=== PATIENT | female | born 1960 | race Caucasian/White ===

== ENCOUNTER → 2020-03-01 17:24 | Outpatient (BNVA) | payer MEDICARE, SELFPAY | PROVIDERS: PCP Internal Medicine; Visit Provider Nurse Practitioner Family | DX: Z11.59 Encounter for screening for other viral diseases (principal); Z20.828 Contact with and (suspected) exposure to other viral communicable diseases; J06.9 Acute upper respiratory infection, unspecified | CPT/HCPCS: 87635 ==

== ENCOUNTER → 2020-03-23 08:19 | Outpatient (BNVA) | payer MEDICARE, SELFPAY | PROVIDERS: PCP Family Medicine Adult Medicine; Referring Provider Family Medicine Adult Medicine; Visit Provider Anesthesiology Pain Medicine | DX: M51.26 Other intervertebral disc displacement, lumbar region (principal); M54.9 Dorsalgia, unspecified; M54.12 Radiculopathy, cervical region; F17.210 Nicotine dependence, cigarettes, uncomplicated; Z98.890 Other specified postprocedural states; Z79.891 Long term (current) use of opiate analgesic | CPT/HCPCS: 99205 ==

== ENCOUNTER → 2020-04-20 08:43 | Outpatient (BNVA) | payer MEDICARE, SELFPAY | PROVIDERS: PCP Family Medicine Adult Medicine; Visit Provider Anesthesiology Pain Medicine | DX: M54.9 Dorsalgia, unspecified (principal); M54.12 Radiculopathy, cervical region; F17.210 Nicotine dependence, cigarettes, uncomplicated; Z79.899 Other long term (current) drug therapy | CPT/HCPCS: 99212 ==

== ENCOUNTER 2020-06-10 17:01 | Emergency (ER) | payer MEDICARE, MEDICAID, SELFPAY ==
--- NOTE | 2020-06-10 17:18 | ED_ITS ---
HPI - Abdominal Pain General: Chief Complaint: Abdominal Pain Stated Complaint: R SIDE PAIN/LIVER LESS THAN 20% EFF Time Seen by Provider: 06/10/20 17:18 Source: patient Mode of arrival: ambulatory Limitations: no limitations History of Present Illness: HPI narrative: 60-year-old female comes in today with complaints of right upper quadrant abdominal pain. Patient has a history of cirrhosis of the liver, hepatitis C, chronic pain, cervical radiculopathy, and hypertension. Patient had been discharged from her pain management physician for overuse of her medications 3 months ago. Patient reports for the last 2 days she has had an exacerbation of her pain she does not know if she is having problems with her pancreas or gallbladder attack. Patient denies any vomiting or diarrhea. Patient reports no fever. Patient appears well. Patient appears in moderate to severe pain. MD elicited complaint: abdominal pain Review of Systems General: Reports: 10 or more systems reviewed and unremarkable except in HPI and below GI: Reports: abdominal pain PFSH ED PFSH: Medical History Degenerative disk disease Depression Encounter for chronic pain management Herniation of left side of L4-L5 intervertebral disc History of 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 infection HTN (hypertension) Surgical History History of neck surgery Family History Mother Heart problem Brother Heart problem Social History Smoking and tobacco status: current some day smoker cigarettes Second hand smoke exposure: Yes Alcohol intake: never Physical Exam Const: COMMON NORMALS: no acute distress and patient oriented x3 GENERAL APPEARANCE: cooperative HENMT: COMMON NORMALS: normocephalic and Normal external nose present HEAD & SCALP: normal to inspection and normocephalic NOSE: Normal external nose present MOUTH: Normal oral and palatal mucosa present Eye: GENERAL EYE: appearance normal, both eyes and all related structures Neck/C-Spine: COMMON NORMALS: full ROM Chest: COMMONS NORMALS: normal inspection of the chest Resp: COMMON NORMALS: normal respiratory effort EFFORT & INSPECTION: Yes able to speak in complete sentences Cardio: COMMON NORMALS: regular rate and regular rhythm RATE: regular rate RHYTHM: regular rhythm GI: AUSCULTATION: Yes normoactive bowel sounds PALPATION: Yes Tenderness to palpation present (GI) OTHER: Distended abdomen, bowel sounds present, generalized tenderness. Back/Pelvis: COMMON NORMALS: thoracic and lumbar spine normal to inspection Extremity: COMMON NORMALS: normal to inspection Neuro: COMMON NORMALS: patient oriented x3 and moves all extremities Psych: COMMON NORMALS: mental status grossly normal and cooperative Skin: COMMON NORMALS: no rashes or lesions noted GENERAL SKIN EXAM: no rashes or lesions noted Course ED course: 1944, reviewed labs with patient. Notes significant abnormalities are noted. Bilirubin is normal, AST is and ALTs are fairly normal. Patient reports no improvement in pain after 4 mg of morphine and 4 mg of Zofran. Patient does have a long history of narcotic use. I suspect it might be difficulty getting her pain under control. This time I have limited information to rule out a surgical abdomen so I will go ahead and do a CT of the abdomen pelvis to further evaluate diarrhea and abdominal pain. I will also p.o. challenge the patient with 1 Percocet and some liquids. Vital Signs: Vital signs: Vital Signs Temperature 98.4 F 06/10/20 17:27 Pulse Rate 79 06/10/20 19:48 Respiratory Rate 22 H 06/10/20 19:51 Blood Pressure 168/118 06/10/20 19:48 Pulse Oximetry 99 06/10/20 19:51 MDM - Abdominal Pain MDM Narrative: Medical decision making narrative: Patient comes in today with complaints of right upper quadrant abdominal pain. Patient reports the pain started this evening has become uncontrollable. Patient appears well. Patient does appear in some moderate to severe pain. Abdomen was slightly distended with normal bowel sounds. Skin was warm and dry. Vital signs were normal except for elevated blood pressure. Differential diagnosis includes not limited to pancreatitis, biliary obstruction, exacerbation of chronic pain, malingering. Laboratory values were unremarkable without much significance. Patient co ntinued to have significant pain though evident after treatment with Zofran and 4 mg of morphine sulfate. CT scan was then performed to rule out surgical abdomen such as bowel obstruction, pancreatitis, or renal calculi. CT showed no acute process. Did show may be some hepatitis but no signs of infection or obstruction. Patient was challenged with 1 tablet of Percocet and water. Patient was able to hold the medication down and had improvement of pain. I think the patient reported increased stress which is caused her to have a exacerbation of her chronic pain and was seeking secondary gains from narcotic medication. Patient was recommended to follow-up with primary care for further evaluation and may be consideration for gastroenterology if pain persists. Patient reported understanding agreed to plan. Lab Data: Labs: Lab Results 06/10/20 06/10/20 06/10/20 Range/Units 17:39 19:03 19:03 WBC 9.2 (4.0-10.0) 10^3/ uL RBC 5.78 H (4.1-5.3) 10^6/u L Hgb 16.6 H (11.5-15.3) g/dL Hct 49.7 H (37.0-47.0) % MCV 86.0 (81-99) fL MCH 28.7 (28.0-34.0) pg MCHC 33.4 (30.0-36.0) g/dL RDW 13.4 (12.1-15.1) % Plt Count 179 (130-400) 10^3/c mm MPV 12.4 H (7.4-10.4) fL Neut % (Auto) 56.7 % Lymph % (Auto) 32.7 % [place] % (Auto) 7.2 % Eos % (Auto) 2.4 % Baso % (Auto) 0.9 % Neut # (Auto) 5.22 (1.8-7.7) 10^3/u L Lymph # (Auto) 3.0 (0.8-4.8) 10^3/u L [place] # (Auto) 0.7 (0.2-0.9) 10^3/u L Eos # (Auto) 0.2 (0.0-0.8) 10^3/u L Baso # (Auto) 0.1 (0.0-0.1) 10^3/u L Nucleated RBC % (a uto) 0 % Nucleated RBCs # 0.0 /100WBC Sodium 140 (136-145) mmol/L Potassium 4.6 (3.5-5.1) mmol/L Chloride 103 (98-107) mmol/L Carbon Dioxide 22 (22-29) mmol/L Anion Gap 19.6 H (5-19) BUN 8 (8-23) mg/dL Creatinine 0.5 (0.5-0.9) mg/dL GFR Calculation 125.4 (90-130) mL/min Glucose 95 (65-115) mg/dL Calculated Osmolal ity 288 (285-295) mOsm/k g Calcium 10.0 (8.5-10.5) mg/dL Total Bilirubin 1.2 (0.15-1.2) mg/dL AST 39 H (0-32) U/L ALT 30 (0-33) U/L Alkaline Phosphata se 81 (35-105) IU/L Total Protein 11.6 H (6.6-8.7) g/dL Albumin 4.8 (3.5-5.2) g/dL Globulin 6.8 H (1.3-4.6) g/dL Lipase 61 H (13-60) U/L Urine Color Yellow (Yellow) Urine Appearance Clear (CLEAR) Urine pH 5 (5-7) Ur Specific Gravit y 1.020 (1.005-1.030) Urine Protein Neg (Negative) Urine Glucose (UA) Norm (Normal) Urine Ketones Negative (Negative) Urine Blood 2+ H (Negative) Urine Nitrate Negative (Negative) Urine Bilirubin Neg (Negative) Urine Urobilinogen 1 H (Negative) mg/dL Ur Leukocyte Monica ase Negative (Negative) Urine RBC 0-4 H (0-2) /hpf Urine WBC 0-4 H (0-5) /hpf Ur Squamous Epith Cells 0-4 H (0-5) /hpf Amorphous Sediment Not Reportable Urine Bacteria Trace (NONE) /hpf Urine Mucus Trace /hpf Discharge Plan Discharge Patient Disposition: Home Clinical Impression: Abdominal pain Qualifiers: Abdominal location: generalized Qualified Code(s): R10.84 - Generalized abdominal pain Cirrhosis Qualifiers: Hepatic cirrhosis type: unspecified hepatic cirrhosis Ascites presence: without ascites Qualified Code(s): K74.60 - Unspecified cirrhosis of liver Condition: Stable Prescriptions: No Action diclofenac sodium 1 % gel 2 gm TOPICAL QID RF: 0 ondansetron HCl 4 mg tablet 4 mg PO Q6H PRN (Reason: Nausea And Vomiting) RF: 0 ibuprofen 200 mg Tablet 200 - 800 mg PO PRN RF: 0 citalopram 20 mg tablet 20 mg PO QPM RF: 0 pregabalin 75 mg capsule 75 mg PO QPM RF: 0 Discharge Orders: Discharge ED (Routine); Ordered 06/10/20 Ordered By: Manuel Cannon Referrals: Navin Horton MD [Primary Care Provider] - Discharge Diet: Usual diet Discharge Activity: Increase activity as tolerated Patient Instructions: Abdominal Pain (ED) Activity Restrictions/Additional Instructions: Home and rest. Follow-up with primary care regarding further treatment for pain control. Drink plenty of fluids. Return to the emergency department for high fever, or blood in vomit or stool. Coding Level of Care Code ED Toe Closing Machine Tender for Chg Fwd Exam Comprehensive
[2020-06-10 17:27] VITALS: BP 205/158; PULSE 112; RESP 18; TEMP 36.9; O2SAT 96; BMI 22.3
[2020-06-10] MEDS: sodium chloride 0.9% 500 ML 999 ML IV (17:44)
[2020-06-10 17:45] VITALS: RESP 20; O2SAT 98
[2020-06-10] MEDS: ondansetron 2 mg/ML SDV 2 mL 4 MG IVP (17:45)
[2020-06-10] MEDS: morphine 4 mg/mL SDV 1 mL IVP (17:45)
[2020-06-10 17:47] VITALS: PULSE 95; RESP 20; O2SAT 99
[2020-06-10 18:15] LABS: Bilirubin Urine Neg (Negative); Blood Urine 2+ (Negative); Glucose Urine UA Norm (Normal); Ketones Urine Negative (Negative); Nitrate Urine Negative (Negative); Protein Urine Neg (Negative); Urine Appearance Clear (CLEAR); Urine Color Yellow (Yellow); Urobilinogen Urine 1 mg/dL (Negative); pH Urine 5 (5-7)
[2020-06-10 18:16] LABS: Add Urine Microscopic? YES; Leukocyte Esterase Urine Negative (Negative)
[2020-06-10 18:17] LABS: Add Urine Culture? No; Bacteria Urine TRACE /hpf; Mucus Urine TRACE /hpf; RBC Urine 0-4 /hpf (0-2); Squamous Epithelial Cell Urine 0-4 /hpf (0-5); WBC Urine 0-4 /hpf (0-5)
[2020-06-10 19:25] LABS: Basophils # 0.1 10^3/uL (0.0-0.1); Basophils % 0.9 %; Eosinophils # 0.2 10^3/uL (0.0-0.8); Eosinophils % 2.4 %; Hematocrit 49.7 % (37.0-47.0); Hemoglobin 16.6 g/dL (11.5-15.3); Lymphocytes % 32.7 %; Mean Corpuscular HGB Conc 33.4 g/dL (30.0-36.0); Mean Corpuscular Hemoglobin 28.7 pg (28.0-34.0); Mean Platelet Volume 12.4 fL (7.4-10.4); Monocytes # 0.7 10^3/uL (0.2-0.9); Monocytes % 7.2 %; Neutrophils # 5.22 10^3/uL (1.8-7.7); Neutrophils % 56.7 %; Nucleated Red Blood Cells % 0 %; Platelet Count 179 10^3/cmm (130-400); Red Blood Count 5.78 10^6/uL (4.1-5.3); Red Cell Distribution Width 13.4 % (12.1-15.1); White Blood Count 9.2 10^3/uL (4.0-10.0)
[2020-06-10 19:33] LABS: Albumin Level 4.8 g/dL (3.5-5.2); Alkaline Phosphatase 81 IU/L (35-105); Blood Urea Nitrogen 8 mg/dL (8-23); Carbon Dioxide 22 mmol/L (22-29); Chloride 103 mmol/L (98-107); Creatinine Clr Calc Pharmacy 105.2144; Glomerular Filtration Rate 125.4 mL/min (90-130); Glucose 95 mg/dL (65-115); Lipase 61 U/L (13-60); Osmolality Calculated 288 mOsm/kg (285-295); Sodium 140 mmol/L (136-145); Total Bilirubin 1.2 mg/dL (0.15-1.2)
[2020-06-10 19:37] LABS: Anion Gap 19.6 (5-19); Potassium 4.6 mmol/L (3.5-5.1)
[2020-06-10 19:38] LABS: Alanine Aminotransferase 30 U/L (0-33); Aspartate Amino Transferase 39 U/L (0-32)
--- NOTE | 2020-06-10 19:45 | CTR_ITS ---
PROCEDURE INFORMATION: Exam: CT Abdomen And Pelvis With Contrast Exam date and time: 06/10/2020 8:03 PM Age: 60 years old Clinical indication: Abdominal pain; Localized; Right upper quadrant (ruq); Prior surgery; Surgery date: 6+ months; Surgery type: Hyst, hip, hernia, back; Patient HX: C/O ruq abd pain w HX of cirrhosis and hep c; Additional info: Non localized abd pain TECHNIQUE: Imaging protocol: Computed tomography of the abdomen and pelvis with intravenous contrast. Total images: 217 Radiation optimization: All CT scans at this facility use at least one of these dose optimization techniques: automated exposure control; mA and/or kV adjustment per patient size (includes targeted exams where dose is matched to clinical indication); or iterative reconstruction. Contrast material: OMNI 300; Contrast volume: 95 ml; Contrast route: INTRAVENOUS (IV); COMPARISON: CT abdomen pelvis w con* [id number] 11/24/2018 5:43 PM RADIATION DOSE METRICS: Total DLP (mGy-cm): 454.06 FINDINGS: Lungs: Limited assessment of the lung bases fails to reveal evidence for active cardiopulmonary process. Liver: Cirrhosis of the liver. No visible hepatic mass or cystic structure. Hepatomegaly. Gallbladder and bile ducts: Normal. No calcified stones. No ductal dilation. Pancreas: Unremarkable. No ductal dilation. Spleen: Splenomegaly. Small splenule. Adrenal glands: Adrenal glands unremarkable. Kidneys and ureters: No hydronephrosis or perinephric fluid. Stable simple small right renal cortical cysts. No follow-up recommended. Dominant cyst measures only 12 mm. No visible nephrolithiasis. Stomach and bowel: Diverticulosis coli without visible evidence for acute diverticulitis. Nonobstructive bowel pattern. No visible significant adynamic or reactive ileus. Appendix: No evidence of appendicitis. Intraperitoneal space: No visible pneumoperitoneum. No visible intraperitoneal ascites. Vasculature: Portal vein patent. The abdominal aorta is nonaneurysmal. Moderate arterial sclerotic disease. Lymph nodes: No visible generalized intraperitoneal or retroperitoneal lymphadenopathy. Urinary bladder: Unremarkable as visualized. Reproductive: Status post hysterectomy. Bones/joints: No visible active or acute osseous pathology. Degenerative disc disease L4/L5 with disc space height loss. Facet arthrosis. Soft tissues: Unremarkable. CT/CT abdomen pelvis w con* [id number] IMPRESSION: 1. Currently no visible evidence of acute abdominal or pelvic pathologic process. 2. Cirrhosis of the liver with hepatomegaly. 3. Splenomegaly. 4. Diverticulosis coli without visible evidence for acute diverticulitis. 5. Other nonurgent, nonemergent, chronic, and age related findings as detailed in text above. Radiation Dose CTDIVOL = (mGy): DLP = 454.06 (mGy-cm)
[2020-06-10 19:48] VITALS: BP 168/118; PULSE 79; RESP 18; O2SAT 98
[2020-06-10 19:51] VITALS: RESP 22; O2SAT 99
[2020-06-10] MEDS: oxyCODONE-APAP 10-325 mg Tablet 1 TAB PO (19:51)
[2020-06-10] MEDS: iohexol 300 mg/mL 100 mL Btl IV (20:37)
[2020-06-10 21:27] VITALS: BP 164/100; PULSE 69; RESP 17; O2SAT 96
[2020-06-11 19:52] LABS: Total Protein 8.8 g/dL (6.6-8.7)
== END 2020-06-10 21:27 | disposition home or self-care (01) ==
PROVIDERS: Emergency Provider Nurse Practitioner Family; PCP Family Medicine Adult Medicine
DX: R10.84 Generalized abdominal pain (principal); K74.60 Unspecified cirrhosis of liver; I10 Essential (primary) hypertension; Z86.19 Personal history of other infectious and parasitic diseases; F17.210 Nicotine dependence, cigarettes, uncomplicated
CPT/HCPCS: 12345; 74177; 80053; 81001; 83690; 85025; 96361; 96374; 96375; 99283; J2270; J2405; J7040; Q9967

== ENCOUNTER 2021-02-06 20:42 | Emergency (ER) | payer MEDICARE, MEDICAID, SELFPAY ==
--- NOTE | 2021-02-06 20:47 | XRR_ITS ---
PROCEDURE INFORMATION: Exam: XR Chest Exam date and time: 02/06/2021 8:47 PM Age: 60 years old Clinical indication: Pain; Left-sided; Additional info: Cp TECHNIQUE: Imaging protocol: XR of the chest. Views: 1 view. COMPARISON: CR Chest 1 [place] [id number] 11/21/2018 3:15 AM FINDINGS: Lungs: Lungs are clear bilaterally. Pleural spaces: No pleural effusion. No pneumothorax. Heart/Mediastinum: The cardiac silhouette and mediastinal contours are unremarkable. Vasculature: Stable vascular calcifications in the aorta. Bones/joints: Stable changes consistent with fusion at the cervicothoracic junction. Degenerative changes in the spine. Bones are diffusely osteopenic. XR/XR chest 1V portable [id number] IMPRESSION: 1. No acute cardiopulmonary process. 2. Incidental/nonacute findings are listed in the report.
[2021-02-06 20:54] LABS: Basophils # 0.1 10^3/uL (0.0-0.1); Basophils % 0.9 %; Eosinophils # 0.2 10^3/uL (0.0-0.8); Eosinophils % 3.1 %; Hematocrit 51.9 % (37.0-47.0); Hemoglobin 17.2 g/dL (11.5-15.3); Lymphocytes # 2.2 10^3/uL (0.8-4.8); Lymphocytes % 31.4 %; Mean Corpuscular HGB Conc 33.1 g/dL (30.0-36.0); Mean Corpuscular Hemoglobin 28.6 pg (28.0-34.0); Mean Corpuscular Volume 86.4 fl (81-99); Mean Platelet Volume 12.2 fL (7.4-10.4); Monocytes # 0.4 10^3/uL (0.2-0.9); Monocytes % 5.6 %; Neutrophils # 4.02 10^3/uL (1.8-7.7); Neutrophils % 58.7 %; Nucleated Red Blood Cells % 0 %; Platelet Count 139 10^3/cmm (130-400); Red Blood Count 6.01 10^6/uL (4.1-5.3); Red Cell Distribution Width 13.2 % (12.1-15.1); White Blood Count 6.8 10^3/uL (4.0-10.0)
[2021-02-06 20:58] VITALS: BP 114/88; PULSE 85; RESP 18; TEMP 36.7; O2SAT 98; BMI 24.9
--- NOTE | 2021-02-06 21:00 | ED_ITS ---
HPI - Chest Pain General: Chief Complaint: Chest Pain Stated Complaint: CP Time Seen by Provider: 02/06/21 20:46 Source: patient and EMS Mode of arrival: EMS Limitations: no limitations History of Present Illness: HPI narrative: 60-year-old female who states she has been having some chest pain with abdominal pain over the last day. States pain is sharp in nature with some nausea. 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 She denies any shortness of breath. Denies any heart history. Denies any worsening improving factors. States pain is currently a 3 out of 10. Associated symptoms: Reports abdominal pain and nausea; Deny dyspnea or fever(s) Review of Systems Const: Denies: fever(s), chills, body aches or change in appetite Eyes: Denies: blurry vision or eye discomfort ENMT: Denies: throat pain or dental pain Card: Reports: chest pain Resp: Denies: dyspnea GI: Reports: abdominal pain and nausea : Denies: dysuria Musc: Denies: neck pain or back pain Skin/Breast: Denies: rash Neuro: Denies: headache(s) Psych: Denies: depression Dariel/Lymph: Denies: easy bruising All/Imm: Denies: urticaria PFSH ED PFSH: Medical History Degenerative disk disease Depression Encounter for chronic pain management Herniation of left side of L4-L5 intervertebral disc History of 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 infection HTN (hypertension) Surgical History History of neck surgery Family History Mother Heart problem Brother Heart problem Social History Smoking and tobacco status: current some day smoker cigarettes Second hand smoke exposure: Yes Alcohol intake: never Physical Exam Const: COMMON NORMALS: no acute distress, patient oriented x3 and healthy appearing HENMT: COMMON NORMALS: normocephalic and atraumatic HEAD & SCALP: normocephalic and atraumatic Eye: COMMON NORMALS: Equal, round and reactive pupils present and EOMs intact bilaterally PUPIL: Yes Equal, round and reactive pupils present Neck/C-Spine: COMMON NORMALS: full ROM and supple Chest: COMMONS NORMALS: normal inspection of the chest and normal palpation of entire chest wall Resp: COMMON NORMALS: normal respiratory effort, No retractions, No use of accessory muscles and clear to auscultation bilaterally AUSCULTATION: clear to auscultation bilaterally Cardio: COMMON NORMALS: regular rate, regular rhythm and No murmurs present (Cardio) RATE: regular rate RHYTHM: regular rhythm GI: COMMON NORMALS: Normal to inspection, nondistended, normoactive bowel sounds present, Soft to palpation, non-tender and no masses PALPATION: Yes Soft to palpation Extremity: COMMON NORMALS: normal to inspection and full ROM Neuro: COMMON NORMALS: patient oriented x3, moves all extremities and no focal motor deficits Psych: COMMON NORMALS: mental status grossly normal, Normal thought process present and cooperative THOUGHT PROCESS: Normal thought process present Skin: COMMON NORMALS: no rashes or lesions noted and no wounds GENERAL SKIN EXAM: no rashes or lesions noted Course Vital Signs: Vital signs: Vital Signs Temperature 98.0 F 02/06/21 20:58 Pulse Rate 82 02/06/21 23:35 Respiratory Rate 16 02/06/21 23:35 Blood Pressure 161/107 02/06/21 23:35 Pulse Oximetry 97 02/06/21 23:35 MDM - Chest Pain MDM Narrative: Medical decision making narrative: Patient presents here with chest pain and abdominal pains atypical in nature. Pain is likely I believe from her chronic liver disease and chronic pain. Her white count here is normal abdominal exam is benign. She has no signs of acute abdomen. Her troponins here are negative. X-ray is normal. She has no signs of pulmonary embolism or aortic dissection. Her pain here is improved will prescribe her pain meds. She is to follow-up with PCP in 2 days and return if worsening. She understands and agrees to plan. Lab Data: Labs: Lab Results 02/06/21 02/06/21 02/06/21 20:50 20:50 20:50 WBC 6.8 10^3/uL 10^3/ uL (4.0-10.0) RBC 6.01 10^6/uL H 10 ^6/uL (4.1-5.3) Hgb 17.2 g/dL H g/dL (11.5-15.3) Hct 51.9 % H % (37.0-47.0) MCV 86.4 fl fl (81-99) MCH 28.6 pg pg (28.0-34.0) MCHC 33.1 g/dL g/dL (30.0-36.0) RDW 13.2 % % (12.1-15.1) Plt Count 139 10^3/cmm 10^3 /cmm (130-400) MPV 12.2 fL H fL (7.4-10.4) Neut % (Auto) 58.7 % % Lymph % (Auto) 31.4 % % [place] % (Auto) 5.6 % % Eos % (Auto) 3.1 % % Baso % (Auto) 0.9 % % Neut # (Auto) 4.02 10^3/uL 10^3 /uL (1.8-7.7) Lymph # (Auto) 2.2 10^3/uL 10^3/ uL (0.8-4.8) [place] # (Auto) 0.4 10^3/uL 10^3/ uL (0.2-0.9) Eos # (Auto) 0.2 10^3/uL 10^3/ uL (0.0-0.8) Baso # (Auto) 0.1 10^3/uL 10^3/ uL (0.0-0.1) Nucleated RBC % (a uto) 0 % % Nucleated RBCs # 0.0 /100WBC /100W BC Sodium 143 mmol/L mmol/L (136-145) Potassium 3.9 mmol/L mmol/L (3.5-5.1) Chloride 103 mmol/L mmol/L (98-107) Carbon Dioxide 27 mmol/L mmol/L (22-29) Anion Gap 16.9 (5-19) BUN 8 mg/dL mg/dL (8-23) Creatinine 0.6 mg/dL mg/dL (0.5-0.9) GFR Calculation 101.6 mL/min mL/m in (90-130) Glucose 111 mg/dL mg/dL (65-115) Calculated Osmolal ity 295 mOsm/kg mOsm/ kg (285-295) Calcium 10.1 mg/dL mg/dL (8.5-10.5) Total Bilirubin 0.8 mg/dL mg/dL (0.15-1.2) AST 32 U/L U/L (0-32) ALT 25 U/L U/L (0-33) Alkaline Phosphata se 82 IU/L IU/L (35-105) Troponin T Baselin e 6 ng/L ng/L (0-10) Troponin T 120 [address] [place] Troponin T Total Protein 7.8 g/dL g/dL (6.6-8.7) Albumin 4.8 g/dL g/dL (3.5-5.2) Globulin 3.0 g/dL g/dL (1.3-4.6) Lipase 02/06/21 02/06/21 20:50 22:39 WBC RBC Hgb Hct MCV MCH MCHC RDW Plt Count MPV Neut % (Auto) Lymph % (Auto) [place] % (Auto) Eos % (Auto) Baso % (Auto) Neut # (Auto) Lymph # (Auto) [place] # (Auto) Eos # (Auto) Baso # (Auto) Nucleated RBC % (a uto) Nucleated RBCs # Sodium Potassium Chloride Carbon Dioxide Anion Gap BUN Creatinine GFR Calculation Glucose Calculated Osmolal ity Calcium Total Bilirubin AST ALT Alkaline Phosphata se Troponin T Baselin e Troponin T [address] [place] 6.00 ng/L ng/L (0-10) Delta Troponin T 0 ABS# ABS# (0-10) Total Protein Albumin Globulin Lipase 66 U/L H U/L (13-60) Imaging Data^: CXR: Attestation: I personally reviewed and interpreted this imaging study as follows: Radiologist's impression: [address] [address] XRay Report Signed Patient: Stella Covarrubias Unit #: [id number] : 1960 Age/Sex: 60 / F ADM Date: 02/06/21 Loc: ER Room/Bed: Attending Dr: Ordering Provider/Ordering MD: Warner Mahajan MD Date of Service: 02/06/21 Procedure(s): XR chest 1V portable [id number] Accession Number(s): [id number] Report Number: [id number] PROCEDURE INFORMATION: Exam: XR Chest Exam date and time: 02/06/2021 8:47 PM Age: 60 years old Clinical indication: Pain; Left-sided; Additional info: Cp TECHNIQUE: Imaging protocol: XR of the chest. Views: 1 view. COMPARISON: CR Chest 1 [place] [id number] 11/21/2018 3:15 AM FINDINGS: Lungs: Lungs are clear bilaterally. Pleural spaces: No pleural effusion. No pneumothorax. Heart/Mediastinum: The cardiac silhouette and mediastinal contours are unremarkable. Vasculature: Stable vascular calcifications in the aorta. Bones/joints: Stable changes consistent with fusion at the cervicothoracic junction. Degenerative changes in the spine. Bones are diffusely osteopenic. XR/XR chest 1V portable [id number] IMPRESSION: 1. No acute cardiopulmonary process. 2. Incidental/nonacute findings are listed in the report. Dictated By: Bree Hurley MD Signed By: Bree Hurley MD Signed Date/Time: 02/06/212146 DD/ 45 EKG Data^: EKG 1: Attestation: I personally reviewed and interpreted this EKG as follows: EKG interpretation date: 02/06/21 EKG interpretation time: 22:45 Interpretation: sinus lesley hr [address] or t wave abnormalities qrs 86 qtc 409 Discharge Plan Discharge Patient Disposition: Home Clinical Impression: Chest pain Qualifiers: Chest pain type: unspecified Qualified Code(s): R07.9 - Chest pain, unspecified Abdominal pain Qualifiers: Abdominal location: generalized Qualified Code(s): R10.84 - Generalized abdominal pain Condition: Stable Prescriptions: New hydrocodone-acetaminophen 5-325 mg tablet 1 tab PO Q6H PRN (Reason: pain) Qty: 14 RF: 0 ondansetron 4 mg tablet,disintegrating 4 mg PO Q6H PRN (Reason: nausea and vomiting) Qty: 14 RF: 0 No Action ondansetron HCl 4 mg tablet 4 mg PO Q6H PRN (Reason: Nausea And Vomiting) RF: 0 diclofenac sodium 1 % gel 2 g topical QID Qty: 100 RF: 1 pregabalin 75 mg capsule 75 mg PO QPM Qty: 90 RF: 0 citalopram 20 mg tablet 20 mg PO QPM 60 Days Qty: 60 RF: 0 ibuprofen 200 mg Tablet 200 - 800 mg PO PRN RF: 0 Discharge Orders: Discharge ED (Routine); Ordered 02/06/21 Ordered By: Warner Mahajan Referrals: Valentina Storm MD [Physician] - 1-3 days Discharge Diet: Advance as tolerated Discharge Activity: Resume usual activity Patient Instructions: Chest Pain (ED), Abdominal Pain (ED), Opioid Safety Coding Level of Care Code ED Roofer Apprentice for Chg Fwd Exam Comprehensive
[2021-02-06 21:11] VITALS: RESP 20
[2021-02-06] MEDS: HYDROmorphone 1 mg/mL INJ 1 mL IVP (21:11)
[2021-02-06 21:19] LABS: Troponin(5th) Baseline 6 ng/L (0-10)
[2021-02-06 21:21] LABS: Alanine Aminotransferase 25 U/L (0-33); Albumin Level 4.8 g/dL (3.5-5.2); Alkaline Phosphatase 82 IU/L (35-105); Anion Gap 16.9 (5-19); Aspartate Amino Transferase 32 U/L (0-32); Blood Urea Nitrogen 8 mg/dL (8-23); Calcium 10.1 mg/dL (8.5-10.5); Carbon Dioxide 27 mmol/L (22-29); Chloride 103 mmol/L (98-107); Glomerular Filtration Rate 101.6 mL/min (90-130); Glucose 111 mg/dL (65-115); Osmolality Calculated 295 mOsm/kg (285-295); Potassium 3.9 mmol/L (3.5-5.1); Sodium 143 mmol/L (136-145); Total Bilirubin 0.8 mg/dL (0.15-1.2); Total Protein 7.8 g/dL (6.6-8.7)
[2021-02-06 21:25] LABS: Lipase 66 U/L (13-60)
[2021-02-06 21:33] VITALS: BP 149/92; PULSE 77; RESP 18; O2SAT 97
--- NOTE | 2021-02-06 22:47 | ECG_ITS ---
[facility] Test Date: 2021-02-06 Pat Name: Stella Covarrubias Department: Room: Gender: Female Choker Setter: : 1960 Requested By: Warner Mahajan Order Number: [id number] Ella MD: Valentina Storm M.D. Measurements Intervals [place] Rate: 59 P: 53 MN: 133 QRS: 67 QRSD: 86 T: 55 QT: 411 QTc: 407 Interpretive Statements SINUS BRADYCARDIA Compared to ECG 11/21/2018 02:39:19 Sinus rhythm no longer present T-wave abnormality no longer present Possible ischemia no longer present Electronically Signed On 02-07-2021 0:01:21 CDT by Valentina Storm M.D. [id number]
[2021-02-06 23:04] LABS: Troponin 5 2HR Delta 0 ABS# (0-10)
[2021-02-06 23:20] VITALS: RESP 22
[2021-02-06] MEDS: morphine 4 mg/mL SDV 1 mL IVP (23:20)
[2021-02-06 23:35] VITALS: BP 161/107; PULSE 82; RESP 16; O2SAT 97
--- NOTE | 2021-02-07 11:53 | DCPLANNER ---
Addendum entered by Shereen Ortega 06/07/21 14:58: Patient had a follow up appointment scheduled for 02.19.21 with [facility] - patient did not attend appointment. Original Note: manager image had message to schedule a follow up appointment for patient with heart care. manager image called [facility], spoke with [place], gave clinic patients information. A follow up appointment was scheduled for Friday, February 19, 2021 at 2:[address] Junior. manager image called patient and gave patient the appointment information.
== END 2021-02-06 23:37 | disposition home or self-care (01) ==
PROVIDERS: Emergency Provider Emergency Medicine
DX: R07.9 Chest pain, unspecified (principal); R10.84 Generalized abdominal pain; I10 Essential (primary) hypertension; F17.210 Nicotine dependence, cigarettes, uncomplicated
CPT/HCPCS: 36415; 71045; 80053; 83690; 84484; 85025; 93005; 96374; 96375; 99284; J1170; J2270

== ENCOUNTER 2021-11-03 14:31 | Emergency (ER) | payer MEDICARE, MEDICAID, SELFPAY ==
[2021-11-03 14:46] VITALS: BP 170/89; PULSE 87; RESP 18; TEMP 36.9; O2SAT 94; BMI 21.4
--- NOTE | 2021-11-03 15:09 | CTR_ITS ---
PROCEDURE INFORMATION: Exam: CT Abdomen And Pelvis Without Contrast Exam date and time: 11/03/2021 3:30 PM Age: 61 years old Clinical indication: Condition or disease; Liver condition; Cirrhosis; Alcoholic; Additional info: Abd pain TECHNIQUE: Imaging protocol: Computed tomography of the abdomen and pelvis without contrast. Sagittal and coronal reformatted images were created and reviewed. Radiation optimization: All CT scans at this facility use at least one of these dose optimization techniques: automated exposure control; mA and/or kV adjustment per patient size (includes targeted exams where dose is matched to clinical indication); or iterative reconstruction. COMPARISON: CT abdomen pelvis w con* [id number] 06/10/2020 8:27 PM RADIATION DOSE METRICS: Total DLP (mGy-cm): 1002.7 FINDINGS: Lungs: Visualized lungs are clear. Pleural spaces: No pleural effusion. Heart: Visualized heart is normal in size. Calcification of the mitral valve annulus. Liver: Stable nodular contour of the liver. Stable mild enlargement of the liver measuring 19.9 cm in length (series 601, image 56). Gallbladder and bile ducts: The gallbladder is unremarkable. No biliary ductal dilatation. Pancreas: The pancreas is unremarkable. No pancreatic ductal dilatation. Spleen: The spleen is unremarkable. Adrenal glands: The right and left adrenal glands are unremarkable. Kidneys and ureters: The right and left kidneys are unremarkable. The right and left ureters are unremarkable. Stomach and bowel: Wall thickening of small bowel loops in the left abdomen. Ingested contents in the stomach. No acute abnormality in the colon. Appendix: Appendix not definitely visualized. No inflammatory changes in the pericecal region however. Intraperitoneal space: No free intraperitoneal air. No ascites. No loculated fluid collections to suggent an abscess. Vasculature: Multiple calcifications in the pelvis most likely representing calcified phleboliths. Moderate atherosclerotic changes in the visualized arteries. No evidence for aortic aneurysm. Stable small caliber varices in the upper abdomen. Lymph nodes: No lymphadenopathy. Urinary bladder: The bladder is incompletely filled, which can limit evaluation. No focal abnormality in the bladder however. Reproductive: Patient has had a previous hysterectomy. The ovaries are not definitely visualized, not an expected in a postmenopausal female. This may be due to ovarian atrophy. Alternatively, the patient may have had a previous bilateral oophorectomy. Bones/joints: Multilevel degenerative changes of varying severity in the visualized spine. Soft tissues: No acute abnormality in the extra-abdominal soft tissues. CT/CT abdomen pelvis wo con [id number] IMPRESSION: 1. Wall thickening of small bowel loops in the left abdomen. Findings raise suspicion for nonspecific enteritis. 2. Stable mild hepatomegaly and cirrhotic changes in the liver. Stable findings suggesting mild portal hypertension with small caliber varices. 3. Incidental/nonacute findings are listed in the report.
[2021-11-03 15:31] VITALS: RESP 16
[2021-11-03] MEDS: HYDROmorphone 1 mg/mL INJ 1 mL IVP ×2 (15:31→17:23)
[2021-11-03] MEDS: ondansetron 2 mg/ML SDV 2 mL 4 MG IVP (15:32)
--- NOTE | 2021-11-03 15:32 | W.ED.ABDPA2 ---
HPI - Abdominal Pain General: Chief Complaint: Abdominal Pain Stated Complaint: abd pain Time Seen by Provider: 11/03/21 15:05 Source: patient Mode of arrival: ambulatory Limitations: no limitations History of Present Illness: 61-year-old female who history of cirrhosis from hepatitis C states she has chronic abdominal pain has been having worsening abdominal pain over the last 4 to 5 days. States its in the right upper quadrant feels like her pain typically does. She rates her pain a 9 out of 10 currently denies any diarrhea or fevers. She denies any worsening improving factors. Associated Symptoms: Denies chills, dysuria and fever(s) Review of Systems Const: Denies: fever(s), chills, body aches or change in appetite Eyes: Denies: blurry vision or eye discomfort ENMT: Denies: throat pain or dental pain Card: Denies: chest pain Resp: Denies: dyspnea GI: Reports: abdominal pain : Denies: dysuria Musc: Denies: neck pain or back pain Skin/Breast: Denies: rash Neuro: Denies: headache(s) Psych: Denies: depression Dariel/Lymph: Denies: easy bruising All/Imm: Denies: urticaria PFSH ED PFSH: Medical History Cirrhosis of liver Degenerative disk disease Depression Diverticulosis of colon Encounter for chronic pain management Generalized anxiety disorder Herniation of left side of L4-L5 intervertebral disc History of 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 infection HTN (hypertension) Opioid contract exists Right sided numbness Surgical History History of neck surgery Family History Mother Heart problem Brother Heart problem Social History Smoking and tobacco status: current every day smoker cigarettes Second hand smoke exposure: Yes Alcohol intake: never Physical Exam Const: COMMON NORMALS: no acute distress, patient oriented x3 and healthy appearing HENMT: COMMON NORMALS: normocephalic and atraumatic HEAD & SCALP: normocephalic and atraumatic Eye: COMMON NORMALS: Equal, round and reactive pupils present and EOMs intact bilaterally PUPIL: Yes Equal, round and reactive pupils present Neck/C-Spine: COMMON NORMALS: full ROM and supple Chest: COMMONS NORMALS: normal inspection of the chest and normal palpation of entire chest wall Resp: COMMON NORMALS: normal respiratory effort, No retractions, No use of accessory muscles and clear to auscultation bilaterally AUSCULTATION: clear to auscultation bilaterally Cardio: COMMON NORMALS: regular rate, regular rhythm and No murmurs present (Cardio) RATE: regular rate RHYTHM: regular rhythm GI: COMMON NORMALS: Normal to inspection, nondistended, normoactive bowel sounds present, Soft to palpation and no masses PALPATION: Yes Soft to palpation and Yes Tenderness to palpation present (GI) Details: RUQ Extremity: COMMON NORMALS: normal to inspection and full ROM Neuro: COMMON NORMALS: patient oriented x3, moves all extremities and no focal motor deficits Psych: COMMON NORMALS: mental status grossly normal, Normal thought process present and cooperative THOUGHT PROCESS: Normal thought process present Skin: COMMON NORMALS: no rashes or lesions noted and no wounds GENERAL SKIN EXAM: no rashes or lesions noted Course Vital Signs: Vital signs: Vital Signs Temperature 98.4 F 11/03/21 14:46 Pulse Rate 87 11/03/21 14:46 Respiratory Rate 16 11/03/21 15:31 Blood Pressure 170/89 11/03/21 14:46 Pulse Oximetry 94 11/03/21 14:46 MDM - Abdominal Pain Medical Decision Making Patient presents here with abdominal pain that is chronic in nature likely from her cirrhosis CT scan showed no acute findings her blood work is normal as well. We will prescribe her pain meds until she follows up with Dr. Barrow this week she has a scheduled appointment she is to return if worsening she understands agrees to plan. Lab Data : 11/03/21 15:10 11/03/21 15:10 Labs/Radiology: Radiology Impressions Abdomen/Pelvis CT 11/03/21 15:09 IMPRESSION: 1. Wall thickening of small bowel loops in the left abdomen. Findings raise suspicion for nonspecific enteritis. 2. Stable mild hepatomegaly and cirrhotic changes in the liver. Stable findings suggesting mild portal hypertension with small caliber varices. 3. Incidental/nonacute findings are listed in the report. Laboratory Results WBC 5.4 10^3/uL (4.0-10.0) 11/03/21 15:10 RBC 5.26 10^6/uL (4.1-5.3) 11/03/21 15:10 Hgb 14.9 g/dL (11.5-15.3) 11/03/21 15:10 Hct 43.7 % (37.0-47.0) 11/03/21 15:10 MCV 83.1 fl (81-99) 11/03/21 15:10 MCH 28.3 pg (28.0-34.0) 11/03/21 15:10 MCHC 34.1 g/dL (30.0-36.0) 11/03/21 15:10 RDW 12.8 % (12.1-15.1) 11/03/21 15:10 Plt Count 163 10^3/cmm (130-400) 11/03/21 15:10 MPV 11.3 fL (7.4-10.4) H 11/03/21 15:10 Neut % (Auto) 57.5 % 11/03/21 15:10 Lymph % (Auto) 29.2 % 11/03/21 15:10 [place] % (Auto) 8.1 % 11/03/21 15:10 Eos % (Auto) 4.1 % 11/03/21 15:10 Baso % (Auto) 0.9 % 11/03/21 15:10 Neut # (Auto) 3.12 10^3/uL (1.8-7.7) 11/03/21 15:10 Lymph # (Auto) 1.6 10^3/uL (0.8-4.8) 11/03/21 15:10 [place] # (Auto) 0.4 10^3/uL (0.2-0.9) 11/03/21 15:10 Eos # (Auto) 0.2 10^3/uL (0.0-0.8) 11/03/21 15:10 Baso # (Auto) 0.1 10^3/uL (0.0-0.1) 11/03/21 15:10 Nucleated RBC % (auto) 0 % 11/03/21 15:10 Nucleated RBCs # 0.0 /100WBC 11/03/21 15:10 Sodium 139 mmol/L (136-145) 11/03/21 15:10 Potassium 4.2 mmol/L (3.5-5.1) 11/03/21 15:10 Chloride 105 mmol/L (98-107) 11/03/21 15:10 Carbon Dioxide 24 mmol/L (22-29) 11/03/21 15:10 Anion Gap 14.2 (5-19) 11/03/21 15:10 BUN 10 mg/dL (8-23) 11/03/21 15:10 Creatinine 0.5 mg/dL (0.5-0.9) 11/03/21 15:10 GFR Calculation 125.0 mL/min (90-130) 11/03/21 15:10 Glucose 92 mg/dL (65-115) 11/03/21 15:10 Calculated Osmolality 287 mOsm/kg (285-295) 11/03/21 15:10 Calcium 9.8 mg/dL (8.5-10.5) 11/03/21 15:10 Total Bilirubin 0.7 mg/dL (0.15-1.2) 11/03/21 15:10 AST 26 U/L (0-32) 11/03/21 15:10 ALT 22 U/L (0-33) 11/03/21 15:10 Alkaline Phosphatase 71 IU/L (35-105) 11/03/21 15:10 Total Protein 8.3 g/dL (6.6-8.7) 11/03/21 15:10 Albumin 4.8 g/dL (3.5-5.2) 11/03/21 15:10 Globulin 3.5 g/dL (1.3-4.6) 11/03/21 15:10 Lipase 52 U/L (13-60) 11/03/21 15:10 Urine Color Yellow (Yellow) 11/03/21 15:00 Urine Appearance Clear (CLEAR) 11/03/21 15:00 Urine pH 5 (5-7) 11/03/21 15:00 Ur Specific [place] 1.020 (1.005-1.030) 11/03/21 15:00 Urine Protein Neg (Negative) 11/03/21 15:00 Urine Glucose (UA) Norm (Normal) 11/03/21 15:00 Urine Ketones Negative (Negative) 11/03/21 15:00 Urine Blood 2+ (Negative) H 11/03/21 15:00 Urine Nitrate Negative (Negative) 11/03/21 15:00 Urine Bilirubin Neg (Negative) 11/03/21 15:00 Urine Urobilinogen Norm mg/dL (Negative) 11/03/21 15:00 Ur Leukocyte Esterase Negative (Negative) 11/03/21 15:00 Urine RBC Rare /hpf (0-2) 11/03/21 15:00 Urine WBC Rare /hpf (0-5) 11/03/21 15:00 Ur Squamous Epith Cells None /hpf (0-5) 11/03/21 15:00 Amorphous Sediment Not Reportable 11/03/21 15:00 Urine Bacteria 1+ /hpf (NONE) H 11/03/21 15:00 Discharge Plan Discharge Patient Disposition: Home Clinical Impression: Abdominal pain Qualifiers: Abdominal location: right upper quadrant Qualified Code(s): R10.11 - Right upper quadrant pain Condition: Stable Prescriptions: New hydrocodone-acetaminophen 5-325 mg tablet 1 tab PO Q6H PRN (Reason: pain) Qty: 14 0RF ondansetron 4 mg tablet,disintegrating 4 mg PO Q6H PRN (Reason: nausea and vomiting) Qty: 14 0RF No Action quetiapine 50 mg tablet 50 mg PO .HS 0RF lorazepam 0.5 mg tablet 0.5 mg PO TID PRN (Reason: anxiety) Qty: 45 3RF amlodipine 10 mg tablet 10 mg PO DAILY Qty: 30 3RF ondansetron HCl 4 mg tablet 4 mg PO Q6H PRN (Reason: Nausea And Vomiting) Qty: 30 1RF celecoxib 200 mg capsule 200 mg PO BID Qty: 60 1RF escitalopram oxalate 10 mg tablet 10 mg PO DAILY Qty: 30 2RF diclofenac sodium 1 % gel See Rx Instructions .ROUTE .COMPLEX Qty: 100 0RF Dose Instruction: APPLY 2 GRAMS TOPICAL TO SINGLE ELBOW, WRIST, OR HAND FOUR TIMES DAILY. HAND INCLUDES PALM, FINGERS AND BACK OF HAND. Rx Instructions: APPLY 2 GRAMS TOPICAL TO SINGLE ELBOW, WRIST, OR HAND FOUR TIMES DAILY. HAND INCLUDES PALM, FINGERS AND BACK OF HAND. Discharge Orders: Discharge ED (Routine); Ordered 11/03/21 Ordered By: Warner Mahajan Referrals: Navin Horton MD [Primary Care Provider] - Discharge Diet: Advance as tolerated Discharge Activity: Resume usual activity Patient Instructions: Abdominal Pain (ED), Opioid Safety Coding Level of Care Code ED Bag Mender for Chg Fwd Exam Comprehensive
[2021-11-03 15:35] LABS: Basophils # 0.1 10^3/uL (0.0-0.1); Basophils % 0.9 %; Eosinophils # 0.2 10^3/uL (0.0-0.8); Eosinophils % 4.1 %; Hematocrit 43.7 % (37.0-47.0); Hemoglobin 14.9 g/dL (11.5-15.3); Lymphocytes # 1.6 10^3/uL (0.8-4.8); Lymphocytes % 29.2 %; Mean Corpuscular HGB Conc 34.1 g/dL (30.0-36.0); Mean Corpuscular Hemoglobin 28.3 pg (28.0-34.0); Mean Corpuscular Volume 83.1 fl (81-99); Mean Platelet Volume 11.3 fL (7.4-10.4); Monocytes # 0.4 10^3/uL (0.2-0.9); Monocytes % 8.1 %; Neutrophils # 3.12 10^3/uL (1.8-7.7); Neutrophils % 57.5 %; Nucleated Red Blood Cells % 0 %; Platelet Count 163 10^3/cmm (130-400); Red Blood Count 5.26 10^6/uL (4.1-5.3); Red Cell Distribution Width 12.8 % (12.1-15.1); White Blood Count 5.4 10^3/uL (4.0-10.0)
[2021-11-03 15:35] LABS: Add Urine Microscopic? YES; Bacteria Urine 1+ /hpf; Bilirubin Urine Neg (Negative); Blood Urine 2+ (Negative); Glucose Urine UA Norm (Normal); Ketones Urine Negative (Negative); Leukocyte Esterase Urine Negative (Negative); Nitrate Urine Negative (Negative); Protein Urine Neg (Negative); RBC Urine RARE /hpf (0-2); Urine Appearance Clear (CLEAR); Urine Color Yellow (Yellow); Urobilinogen Urine Norm (Negative); WBC Urine RARE /hpf (0-5); pH Urine 5 (5-7)
[2021-11-03 15:36] LABS: Add Urine Culture? No
[2021-11-03 15:48] LABS: Alanine Aminotransferase 22 U/L (0-33); Albumin Level 4.8 g/dL (3.5-5.2); Alkaline Phosphatase 71 IU/L (35-105); Anion Gap 14.2 (5-19); Aspartate Amino Transferase 26 U/L (0-32); Blood Urea Nitrogen 10 mg/dL (8-23); Calcium 9.8 mg/dL (8.5-10.5); Carbon Dioxide 24 mmol/L (22-29); Chloride 105 mmol/L (98-107); Globulin 3.5 g/dL (1.3-4.6); Glucose 92 mg/dL (65-115); Lipase 52 U/L (13-60); Osmolality Calculated 287 mOsm/kg (285-295); Potassium 4.2 mmol/L (3.5-5.1); Sodium 139 mmol/L (136-145); Total Bilirubin 0.7 mg/dL (0.15-1.2); Total Protein 8.3 g/dL (6.6-8.7)
[2021-11-03 17:23] VITALS: RESP 16
[2021-11-03 18:08] VITALS: BP 137/74; PULSE 78; RESP 16; O2SAT 96
== END 2021-11-03 18:09 | disposition home or self-care (01) ==
PROVIDERS: Emergency Provider Emergency Medicine; PCP Family Medicine Adult Medicine
DX: R10.11 Right upper quadrant pain (principal)
CPT/HCPCS: 74176; 80053; 81001; 83690; 85025; 96374; 96375; 96376; 99284; J1170; J2405

== ENCOUNTER 2021-11-25 08:44 | Day surgery (SDC) | payer MEDICARE, MEDICAID, SELFPAY ==
[2021-11-22 13:23] VITALS: BMI 23.1
--- NOTE | 2021-11-25 08:31 | P.HP_ITS ---
Same Day Surgery H&P Indication for Procedure/HPI DATE OF PROCEDURE: November 25, 2021 CHIEF COMPLAINT/INDICATIONFOR SURGICAL PROCEDURE: Abdominal pain PREOP DIAGNOSIS: abdominal pain PLANNED PROCEDURE: Operation Date: 11/25/21 10:15 Proposed Procedures p EGD 79853,R10.11(Not Applicable) - Hector Barrow MD Medications/Allergies* Home Medications Medication Instructions Recorded Confirmed Type escitalopram oxalate 10 mg tablet 10 mg PO DAILY 11/22/21 11/22/21 History Allergies/Adverse Reactions Allergy/AdvReac Type Severity Reaction Status Date / Time prochlorperazine Allergy Intermediate ADR-Irritab Verified 11/07/21 14:36 [From Compazine] le Pertinent History/Comorbid Conditions* Medical History (Updated 11/11/21 @ 00:01 by ) Cirrhosis of liver Degenerative disk disease Depression Diverticulosis of colon Encounter for chronic pain management Generalized anxiety disorder Herniation of left side of L4-L5 intervertebral disc History of 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 infection HTN (hypertension) Opioid contract exists Right sided numbness Surgical History (Updated 03/23/20 @ 09:44 by Darius Juares MD) History of neck surgery Family History (Updated 04/20/20 @ 07:27 by MARY Lagunas) Heart problem Mother Brother Social History Smoking and tobacco status: former smoker Second hand smoke exposure: Yes Alcohol intake: never Pertinent Exam Findings alert, oriented x 3, clear to auscultation bilaterally, regular rate & rhythm, operative site marked and procedure specific exam findings Recommendations Surgery/Procedure today Coding Level of Care Code Acute Natural Resources Instructor for Nadia Poole
[2021-11-25 09:26] VITALS: BP 155/89; PULSE 78; RESP 18; TEMP 36.8; O2SAT 100
[2021-11-25] MEDS: sodium chloride 0.9% 1,000 ML 30 ML IV (09:48)
--- NOTE | 2021-11-25 10:34 | P.ANESASSM_ITS ---
Pre-Anesthetic Assessment Height/Weight: Height 1.63 m Weight 61.235 kg Temp Pulse Resp BP Pulse Ox 98.2 F 78 18 155/89 100 11/25/21 09:26 11/25/21 09:26 11/25/21 09:26 11/25/21 09:26 11/25/21 09:26 Preop Diagnosis: Epig pain Operation Date: 11/25/21 10:15 Proposed Procedures p EGD 06161,R10.11(Not Applicable) - Hector Barrow MD Familial anesthetic complications: None Was Beta Kyle taken within 24 hours: N/A Was Clonidine taken within 24 hours: N/A Last intake: Intake Last Liquid Date 11/24/21 Last Liquid Time 22:00 Last Solid Date 11/24/21 Last Solid Time 22:00 Social No alcohol and No tobacco Exam alert, oriented x 3, clear to auscultation bilaterally and regular rate & rhythm Airway Submandibular: within normal limits Cervical ROM: within normal limits Mallampati: Class III Dentition: false Pulmonary Chronic Obstructive Pulmonary Disease CV/HEM Hypertension Hx of syncope of unknown cause about 5 months ago per patient Hepatic Cirrhosis and Hepatitis (C) GI Gastroesophageal Reflux Disease Poorly controlled GERD Metabolic None reported Musc/skel Lower Back Pain Neuropsych Cerebrovascular Accident (Left sided stroke hx with limitations in RUE and RLE ) and Depression Anesthetic Plan ASA status: 3 Anesthesia: Anesthesia Evaluation, General and MAC Other: I discussed with the patient risks, goals, and benefits of MAC and general anesthesia. We discussed spectrum of MAC anesthesia including conversion to ge neral as well as possibility of recall of intraoperative stimuli including discomfort/pain. Patient agrees to proceed with MAC. Risk of > 500 ml blood loss (7ml/kg in children): No Medications/Allergies Home Medications Medication Instructions Recorded Confirmed Last Taken Type amlodipine 10 mg tablet 10 mg PO DAILY #30 tab 09/19/21 11/22/21 11/24/21 Rx ondansetron HCl 4 mg tablet 4 mg PO Q6H PRN #30 tab 09/19/21 11/22/21 Unknown Rx diclofenac sodium 1 % topical gel See Rx Instructions .ROUTE 10/23/21 11/22/21 11/24/21 Rx .COMPLEX #100 g lorazepam 0.5 mg tablet 0.5 mg PO TID PRN 30 Days #90 tab 11/20/21 11/22/21 11/24/21 Rx escitalopram oxalate 10 mg tablet 10 mg PO DAILY 11/22/21 11/22/21 Unknown History Allergies Allergy/AdvReac Type Severity Reaction Status Date / Time prochlorperazine Allergy Intermediate ADR-Irritab Verified 11/07/21 14:36 [From Compazine] le Current Medications Generic Name Dose Route Start Last Admin Trade Name Freq PRN Reason Stop Dose Admin Sodium Chloride 1,000 mls @ 30 mls/hr 11/25/21 09:15 11/25/21 09:48 Sodium Chloride 0.9% IV 30 mls/hr .Q24H LOC Administration PFSH Anesthesia Medical History Cirrhosis of liver Degenerative disk disease Depression Diverticulosis of colon Encounter for chronic pain management Generalized anxiety disorder Herniation of left side of L4-L5 intervertebral disc History of 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 infection HTN (hypertension) Opioid contract exists Right sided numbness Surgical History History of neck surgery Family History Mother Heart problem Brother Heart problem Social History Smoking and tobacco status: former smoker Second hand smoke exposure: Yes Alcohol intake: never Data Anesthesia Cardiac Studies: No Data to Display
[2021-11-25 10:53] VITALS: BP 139/76; PULSE 75; RESP 19; TEMP 36.4; O2SAT 95
--- NOTE | 2021-11-25 10:55 | ANE.PACU2 ---
Documented by User: Sunshine Triplett CRNA 11/25/21 10:56 Inpatient post-anesthesia follow up: Airway intact: Yes Vital signs: Temperature 98.2 F Pulse Rate 78 Respiratory Rate 18 Blood Pressure 155/89 Pulse Oximetry 100 Oxygen Delivery Me thod Room Air Oxygen Flow Rate Fraction of Inspir ed Oxygen Hydration adequate: Yes Nausea and vomiting: No Pain level: 1 Mental status: Baseline
[2021-11-25 11:10] VITALS: BP 130/78; PULSE 77; RESP 16; O2SAT 97
[2021-11-26 13:32] LABS: H. Pylori / CLO Test Negative
== END 2021-11-25 11:15 | disposition home or self-care (01) ==
PROVIDERS: PCP Family Medicine Adult Medicine; Visit Provider Internal Medicine
PROC: 0DJ08ZZ Inspection of Upper Intestinal Tract, Via Natural or Artificial Opening Endoscopic (ICD-10-PCS; CPT 43235; principal; 2021-11-25 10:15)
DX: R10.11 Right upper quadrant pain (principal); K29.70 Gastritis, unspecified, without bleeding; K29.80 Duodenitis without bleeding; J44.9 Chronic obstructive pulmonary disease, unspecified; I10 Essential (primary) hypertension; Z86.19 Personal history of other infectious and parasitic diseases; K21.9 Gastro-esophageal reflux disease without esophagitis; Z87.891 Personal history of nicotine dependence
CPT/HCPCS: 43239; 87077; J2704; J7030

== ENCOUNTER 2022-01-27 12:08 | Emergency (ER) | payer MEDICARE, MEDICAID, SELFPAY ==
[2022-01-27 12:12] VITALS: BP 113/72; PULSE 81; RESP 18; TEMP 36.7; O2SAT 97; BMI 24.0
[2022-01-27 12:49] LABS: Add Urine Microscopic? NO; Charge for UA Resulting for Rev
--- NOTE | 2022-01-27 12:53 | US_ITS ---
WS: [id number] RIGHT UPPER QUADRANT ULTRASOUND HISTORY: Abdominal pain. COMPARISON: 11/28/2018 Liver: 13.6 cm in length. Small liver with nodular surface from cirrhosis. No bile duct dilatation. N o mass. Portal Vein: Normal hepatopetal flow with monophasic waveform. Gallbladder: Normally distended gallbladder. There is a single focus of increased echogenicity within the lumen of the gallbladder. There is no shadowing. This soft tissue protrusion into the lumen [place] ures 1.5 cm and may be a polyp. With a stone of this size and shape, some shadowing. CBD: 0.4 cm Pancreas: Normal size and echogenicity. Right kidney: 12.5 cm in length. Normal size and echogenicity. No hydronephrosis or mass. Aorta and IVC: Unremarkable abdominal aorta and IVC. No ascites. US/US gall bladder [id number] IMPRESSION: 1. Normal distended gallbladder. There is a single nonshadowing focus measurin g 1.5 cm projecting into the lumen attached to the wall of the gallbladder. Thi s may be a polyp but is larger than typically seen. If this were a stone it [place] uld shadow. Consider follow-up ultrasound in 4-6 weeks to see if there is any c hange in size of this nodule. May be tumefactive sludge ball versus benign or m alignant polyp. 2. Cirrhosis.
[2022-01-27 12:54] LABS: Urine Appearance Clear (CLEAR); Urine Color Yellow (Yellow)
[2022-01-27 12:55] LABS: Bilirubin Urine Neg (Negative); Blood Urine Neg (Negative); Glucose Urine UA Norm (Normal); Ketones Urine Negative (Negative); Leukocyte Esterase Urine Negative (Negative); Nitrate Urine Negative (Negative); Protein Urine Neg (Negative); Specific Gravity, Urine 1.005 (1.005-1.030); Urobilinogen Urine Norm (Negative); pH Urine 6.5 (5-7)
[2022-01-27 12:56] LABS: Basophils % 0.9 %; Eosinophils # 0.2 10^3/uL (0.0-0.8); Eosinophils % 5.4 %; Hematocrit 42.9 % (37.0-47.0); Lymphocytes # 1.4 10^3/uL (0.8-4.8); Lymphocytes % 33.6 %; Mean Corpuscular HGB Conc 32.6 g/dL (30.0-36.0); Mean Corpuscular Volume 85.8 fl (81-99); Mean Platelet Volume 11.6 fL (7.4-10.4); Monocytes # 0.3 10^3/uL (0.2-0.9); Neutrophils # 2.21 10^3/uL (1.8-7.7); Neutrophils % 51.9 %; Nucleated Red Blood Cells % 0 %; Platelet Count 148 10^3/cmm (130-400); Red Cell Distribution Width 12.7 % (12.1-15.1); White Blood Count 4.3 10^3/uL (4.0-10.0)
[2022-01-27 13:01] VITALS: RESP 16
[2022-01-27] MEDS: ondansetron 2 mg/ML SDV 2 mL 4 MG IVP (13:01)
[2022-01-27] MEDS: fentaNYL 50 mcg/mL INJ 2mL IVP (13:01)
[2022-01-27 13:13] LABS: Alanine Aminotransferase 23 U/L (0-33); Albumin Level 4.2 g/dL (3.5-5.2); Alkaline Phosphatase 79 U/L (35-105); Anion Gap 12.3 (5-19); Aspartate Amino Transferase 26 U/L (0-32); Blood Urea Nitrogen 12 mg/dL (8-23); Calcium 9.4 mg/dL (8.5-10.5); Carbon Dioxide 28 mmol/L (22-29); Chloride 104 mmol/L (98-107); Creatinine Clr Calc Pharmacy 89.3534; Globulin 3.5 g/dL (1.3-4.6); Glomerular Filtration Rate 101.3 mL/min (90-130); Glucose 90 mg/dL (65-115); Lipase 72 U/L (13-60); Osmolality Calculated 289 mOsm/kg (285-295); Potassium 4.3 mmol/L (3.5-5.1); Sodium 140 mmol/L (136-145); Total Bilirubin 0.6 mg/dL (0.15-1.2); Total Protein 7.7 g/dL (6.6-8.7)
--- NOTE | 2022-01-27 14:03 | W.ED.ABDPA2 ---
HPI - Abdominal Pain General: Chief Complaint: Abdominal Pain Stated Complaint: abd pain Time Seen by Provider: 01/27/22 13:53 Source: patient Mode of arrival: ambulatory Limitations: no limitations History of Present Illness: 61-year-old female presents to the emergency room complaining right upper quadrant pain she initially told me it started a week ago. Look through her chart she has had this for several months. She has been seen multiple times she has had work-ups for it. And set her up for a gallbladder ultrasound she has a history of hepatitis C. She refers pain over the lower ribs on the right side as well as in the right upper quadrant. She has not had any vomiting but has been very nauseous. No acholic stools no diarrhea MD elicited complaint: abdominal pain Pertinent past history: other (Cirrhosis) Onset (ago): month(s) Pain Consistency: intermittent Location: RUQ Severity: moderate Quality: cramping Radiation: none Exacerbating factors: nothing Relieving factors: nothing Associated Symptoms: Reports nausea and poor appetite; Denies anorexia, belching, bloating, change in bowel habits, change in stool character, chills, coffee ground emesis, constipation, GI cramping, diarrhea, dyspepsia, dysuria, excessive flatus, fever(s), heartburn, hematochezia, hematuria, hematemesis, fecal incontinence, loose stools, melena, syncope and vomiting Review of Systems Const: Reports: fatigue and malaise; Denies: fever(s) or chills ENMT: Denies: throat pain, ear or mastoid pain, nasal discharge or nasal congestion Card: Denies: syncope Resp: Denies: dyspnea, productive cough or non-productive cough GI: Reports: abdominal pain and nausea; Denies: vomiting, hematemesis, coffee ground emesis, heartburn, diarrhea, constipation, bloating, GI cramping, belching, excessive flatus, fecal incontinence, change in bowel habits, change in stool character, hematochezia or melena : Denies: flank pain, difficulty voiding, dysuria, urinary frequency, urinary urgency or hematuria Skin/Breast: Denies: rash or pruritus PFSH ED PFSH: Medical History Cirrhosis of liver Degenerative disk disease Depression Diverticulosis of colon Encounter for chronic pain management Generalized anxiety disorder Herniation of left side of L4-L5 intervertebral disc History of 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 infection HTN (hypertension) Opioid contract exists Right sided numbness Surgical History History of neck surgery Family History Mother Heart problem Brother Heart problem Social History Smoking and tobacco status: former smoker Second hand smoke exposure: Yes Alcohol intake: never Physical Exam Const: GENERAL APPEARANCE: cooperative and comfortable ORIENTATION/CONSCIOUSNESS: Yes awake, Yes oriented to person, Yes oriented to place and Yes oriented to time HENMT: COMMON NORMALS: normocephalic, atraumatic and hearing grossly normal bilaterally HEAD & SCALP: normocephalic and atraumatic Chest: OTHER: Tenderness over the right lower ribs. Resp: COMMON NORMALS: normal respiratory effort, No retractions, No use of accessory muscles and clear to auscultation bilaterally AUSCULTATION: clear to auscultation bilaterally Cardio: COMMON NORMALS: regular rate, regular rhythm and No murmurs present (Cardio) RATE: regular rate RHYTHM: regular rhythm GI: AUSCULTATION: Yes normoactive bowel sounds PALPATION: Yes Tenderness to palpation present (GI) Details: RUQ, No Guarding due to palpation present (GI) and Yes Hepatomegaly present Extremity: COMMON NORMALS: normal to inspection, capillary refill normal, no clubbing, cyanosis or edema, no calf tenderness and no pedal edema Neuro: SENSORIUM/ORIENTATION: Yes oriented to person, Yes oriented to place and Yes oriented to time Skin: COMMON NORMALS: no rashes or lesions noted GENERAL SKIN EXAM: no rashes or lesions noted Course Vital Signs: Vital signs: Vital Signs Temperature 98.1 F 01/27/22 12:12 Pulse Rate 78 01/27/22 16:26 Respiratory Rate 16 01/27/22 14:33 Blood Pressure 118/72 01/27/22 16:26 Pulse Oximetry 97 01/27/22 12:12 Oxygen Delivery Me thod 01/27/22 12:12 MDM - Abdominal Pain Medical Decision Making Ultrasound right upper quadrant does not show any acute findings. There is mild elevation in lipase but this has been present previously previous CTs were unremarkable. She still has some tenderness over the ribs in that right upper quadrant region but there is visits dating back into November for this. No acute emergent events at this time. We will go ahead and discharge her home further work-up as per outpatient. Patient asked about hydrocodone defer this to primary care since this is an ongoing chronic problem. Medical Records I reviewed the patient's medical records. Lab Data I reviewed the patient's lab results. : 01/27/22 12:49 01/27/22 12:49 Labs/Radiology: Radiology Impressions Gallbladder Ultrasound 01/27/22 12:53 IMPRESSION: 1. Normal distended gallbladder. There is a single nonshadowing focus measuring 1.5 cm projecting into the lumen attached to the wall of the gallbladder. This may be a polyp but is larger than typically seen. If this were a stone it should shadow. Consider follow-up ultrasound in 4-6 weeks to see if there is any change in size of this nodule. May be tumefactive sludge ball versus benign or malignant polyp. 2. Cirrhosis. Laboratory Results WBC 4.3 10^3/uL (4.0-10.0) 01/27/22 12:49 RBC 5.00 10^6/uL (4.1-5.3) 01/27/22 12:49 Hgb 14.0 g/dL (11.5-15.3) 01/27/22 12:49 Hct 42.9 % (37.0-47.0) 01/27/22 12:49 MCV 85.8 fl (81-99) 01/27/22 12:49 MCH 28.0 pg (28.0-34.0) 01/27/22 12:49 MCHC 32.6 g/dL (30.0-36.0) 01/27/22 12:49 RDW 12.7 % (12.1-15.1) 01/27/22 12:49 Plt Count 148 10^3/cmm (130-400) 01/27/22 12:49 MPV 11.6 fL (7.4-10.4) H 01/27/22 12:49 Neut % (Auto) 51.9 % 01/27/22 12:49 Lymph % (Auto) 33.6 % 01/27/22 12:49 [place] % (Auto) 8.0 % 01/27/22 12:49 Eos % (Auto) 5.4 % 01/27/22 12:49 Baso % (Auto) 0.9 % 01/27/22 12:49 Neut # (Auto) 2.21 10^3/uL (1.8-7.7) 01/27/22 12:49 Lymph # (Auto) 1.4 10^3/uL (0.8-4.8) 01/27/22 12:49 [place] # (Auto) 0.3 10^3/uL (0.2-0.9) 01/27/22 12:49 Eos # (Auto) 0.2 10^3/uL (0.0-0.8) 01/27/22 12:49 Baso # (Auto) 0.0 10^3/uL (0.0-0.1) 01/27/22 12:49 Nucleated RBC % (auto) 0 % 01/27/22 12:49 Nucleated RBCs # 0.0 /100WBC 01/27/22 12:49 Sodium 140 mmol/L (136-145) 01/27/22 12:49 Potassium 4.3 mmol/L (3.5-5.1) 01/27/22 12:49 Chloride 104 mmol/L (98-107) 01/27/22 12:49 Carbon Dioxide 28 mmol/L (22-29) 01/27/22 12:49 Anion Gap 12.3 (5-19) 01/27/22 12:49 BUN 12 mg/dL (8-23) 01/27/22 12:49 Creatinine 0.6 mg/dL (0.5-0.9) 01/27/22 12:49 GFR Calculation 101.3 mL/min (90-130) 01/27/22 12:49 Glucose 90 mg/dL (65-115) 01/27/22 12:49 Calculated Osmolality 289 mOsm/kg (285-295) 01/27/22 12:49 Calcium 9.4 mg/dL (8.5-10.5) 01/27/22 12:49 Total Bilirubin 0.6 mg/dL (0.15-1.2) 01/27/22 12:49 AST 26 U/L (0-32) 01/27/22 12:49 ALT 23 U/L (0-33) 01/27/22 12:49 Alkaline Phosphatase 79 U/L (35-105) 01/27/22 12:49 Total Protein 7.7 g/dL (6.6-8.7) 01/27/22 12:49 Albumin 4.2 g/dL (3.5-5.2) 01/27/22 12:49 Globulin 3.5 g/dL (1.3-4.6) 01/27/22 12:49 Lipase 72 U/L (13-60) H 01/27/22 12:49 Urine Color Yellow (Yellow) 01/27/22 12:22 Urine Appearance Clear (CLEAR) 01/27/22 12:22 Urine pH 6.5 (5-7) 01/27/22 12:22 Ur Specific [place] 1.005 (1.005-1.030) 01/27/22 12:22 Urine Protein Neg (Negative) 01/27/22 12:22 Urine Glucose (UA) Norm (Normal) 01/27/22 12:22 Urine Ketones Negative (Negative) 01/27/22 12:22 Urine Blood Neg (Negative) 01/27/22 12:22 Urine Nitrate Negative (Negative) 01/27/22 12:22 Urine Bilirubin Neg (Negative) 01/27/22 12:22 Urine Urobilinogen Norm mg/dL (Negative) 01/27/22 12:22 Ur Leukocyte Esterase Negative (Negative) 01/27/22 12:22 Discharge Plan Discharge Patient Disposition: Home Clinical Impression: Cirrhosis of liver, Abdominal pain, chronic, right upper quadrant Condition: Stable Prescriptions: No Action dicyclomine 10 mg capsule 10 mg PO TID PRN (Reason: cramps) Qty: 90 0RF lorazepam 0.5 mg tablet 0.5 mg PO TID PRN (Reason: anxiety) 30 Days Qty: 90 2RF ondansetron HCl 4 mg tablet 4 mg PO Q6H PRN (Reason: Nausea And Vomiting) Qty: 30 1RF diclofenac sodium 1 % gel See Rx Instructions .ROUTE .COMPLEX Qty: 100 1RF Dose Instruction: APPLY 2 GRAMS TOPICAL TO SINGLE ELBOW, WRIST, OR HAND FOUR TIMES DAILY. HAND INCLUDES PALM, FINGERS AND BACK OF HAND. Rx Instructions: APPLY 2 GRAMS TOPICAL TO SINGLE ELBOW, WRIST, OR HAND FOUR TIMES DAILY PRN-HAND INCLUDES PALM, FINGERS AND BACK OF HAND. escitalopram oxalate 10 mg tablet 10 mg PO DAILY pantoprazole 40 mg tablet,delayed release (DR/EC) 40 mg PO DAILY Qty: 90 8RF Tylenol Ex Str Rapid Release 500 mg Tablet 500 mg PO Q6H PRN (Reason: Pain) Stool Softener 100 mg Capsule 100 mg PO DAILY PRN (Reason: Constipation) amlodipine 10 mg tablet 10 mg PO QAM Discharge Orders: Discharge ED (Routine); Ordered 01/27/22 Ordered By: Sher Trejo Referrals: Navin Horton MD [Primary Care Provider] - Discharge Diet: Usual diet Discharge Activity: Resume usual activity Patient Instructions: Abdominal Pain (ED), Opioid Safety Activity Restrictions/Additional Instructions: Follow-up with your primary care doctor for the continued chronic abdominal pain Coding Level of Care Code ED Recreation Coordinator for Nadia Poole
[2022-01-27 14:09] VITALS: BP 119/83; PULSE 78; RESP 16
--- NOTE | 2022-01-27 14:11 | PC.NURSE ---
Pt seen her doctor last week and he told her that her gallbladder was hurting her, she came in today because it was hurting again
[2022-01-27 14:33] VITALS: RESP 16
[2022-01-27] MEDS: fentaNYL 50 mcg/mL INJ 2mL 100 MCG IVP (14:33)
[2022-01-27] MEDS: promethazine 25 mg/mL SDV 1 mL IM (14:34)
[2022-01-27 16:26] VITALS: BP 118/72; PULSE 78
== END 2022-01-27 16:27 | disposition home or self-care (01) ==
PROVIDERS: Emergency Medicine; Emergency Provider Family Medicine; PCP Family Medicine Adult Medicine
DX: K74.60 Unspecified cirrhosis of liver (principal); G89.29 Other chronic pain; R10.11 Right upper quadrant pain; I10 Essential (primary) hypertension; Z86.19 Personal history of other infectious and parasitic diseases
CPT/HCPCS: 76705; 80053; 81003; 83690; 85025; 96372; 96374; 96375; 96376; 99285; J2405; J2550; J3010

== ENCOUNTER 2022-03-06 09:20 | Outpatient (CLI) | payer MEDICARE, MEDICAID, SELFPAY ==
--- NOTE | 2022-03-06 10:00 | NM_ITS ---
WS: [id number] NUCLEAR MEDICINE HIDA SCAN WITH GALLBLADDER EJECTION FRACTION HISTORY: RUQ pain COMPARISON: 01/27/2022 TECHNIQUE: The patient was intravenously injected with 8.4 mCi of TC99m Mebrofenin. Immediate imaging over the right upper quadrant was followed by 5 minute image and additional images for a total of 60 minutes. Normal uptake of radiotracer throughout the liver. Activity identified in the gallbladder at 20 minutes and well distended by 60 minutes. Activity in the proximal small bowel was seen by 15 minutes. Good washout of the radiotracer from the liver by 60 minutes. The patient then drank 8 ounces of Ensure Plus. Ejection fraction at 60 minutes was 65%. Normal GB ej ection fraction is 35-75%. Post fatty meal symptoms: None. NM/NM hepatobiliary w phar* [id number] IMPRESSION: 1. Normal HIDA scan. 2. Normal gallbladder ejection fraction.
== END 2022-03-06 09:21 | disposition home or self-care (01) ==
LOC: NM 09:23
PROVIDERS: PCP Family Medicine Adult Medicine; Visit Provider Internal Medicine
DX: R10.11 Right upper quadrant pain (principal)
CPT/HCPCS: 78227; A9537

== ENCOUNTER 2022-09-19 15:46 | Outpatient (CLI) | payer MEDICARE, MEDICAID, SELFPAY ==
--- NOTE | 2022-09-19 16:22 | XRR_ITS ---
PROCEDURE INFORMATION: Exam: XR Cervical Spine Exam date and time: 09/19/2022 4:24 PM Age: 62 years old Clinical indication: Neck pain; Prior surgery; Surgery type: C spine; Additional info: Chronic neck pain, recent x-ray and a history of bone spurs in her neck. TECHNIQUE: Imaging protocol: Radiologic exam of the cervical spine. Views: 4 or 5 views. COMPARISON: CT cervical spin wo con* [id number] 11/14/2018 7:22 PM FINDINGS: Bones/joints: The vertebral body stature is intact. Trace retrograde subluxation of C5 on C6. Anterior mechanical and bony fusion of C6-C7. Disc space narrowing at C3-C4, C4-C5, and C5-C6 with mild degenerative endplate changes. The facets are intact with hypertrophic degenerative changes. Soft tissues: Unremarkable. XR/XR cervical spine 4-5V [id number] IMPRESSION: 1. No acute findings. 2. Intact C6-C7 fusion.
--- NOTE | 2022-09-19 16:22 | XRR_ITS ---
PROCEDURE INFORMATION: Exam: XR Right Shoulder Exam date and time: 09/19/2022 4:24 PM Age: 62 years old Clinical indication: Pain; Shoulder; Right; Additional info: Right shoulder pain, chronic right shoulder pain with popping increasing in the shoulder TECHNIQUE: Imaging protocol: Radiologic exam of the right shoulder. Views: 2 or more views. COMPARISON: CR XR chest 1V portable [id number] 02/06/2021 9:07 PM FINDINGS: Bones/joints: C-spine fusion hardware. The bones are intact and in normal alignment. Mild hypertrophic degenerative changes of the acromioclavicular joint. Soft tissues: Normal. XR/XR shoulder RT min 2V* [id number] IMPRESSION: No acute findings.
== END 2022-09-19 15:47 | disposition home or self-care (01) ==
PROVIDERS: PCP Family Medicine Adult Medicine; Visit Provider Family Medicine Adult Medicine
DX: G89.29 Other chronic pain (principal); M54.2 Cervicalgia; M25.511 Pain in right shoulder
CPT/HCPCS: 72050; 73030

== ENCOUNTER → 2022-10-29 16:10 | Outpatient (BNVA) | payer MEDICARE, MEDICAID, SELFPAY | PROVIDERS: PCP Family Medicine Adult Medicine; Visit Provider Family Medicine Adult Medicine | DX: C44.91 Basal cell carcinoma of skin, unspecified (principal) | CPT/HCPCS: 88304 ==

== ENCOUNTER 2022-11-01 14:51 | Emergency (ER) | payer MEDICARE, MEDICAID, SELFPAY ==
[2022-11-01 14:58] VITALS: PULSE 77; RESP 14; TEMP 36.7; O2SAT 98; BMI 24.9
[2022-11-01 16:29] LABS: Basophils % 0.3 %; Eosinophils # 0.1 10^3/uL (0.0-0.8); Eosinophils % 1.1 %; Hematocrit 43.1 % (37.0-47.0); Hemoglobin 14.1 g/dL (11.5-15.3); Lymphocytes # 1.3 10^3/uL (0.8-4.8); Lymphocytes % 11.8 %; Mean Corpuscular HGB Conc 32.7 g/dL (30.0-36.0); Mean Corpuscular Hemoglobin 27.8 pg (28.0-34.0); Mean Corpuscular Volume 84.8 fl (81-99); Monocytes # 0.8 10^3/uL (0.2-0.9); Monocytes % 6.8 %; Neutrophils # 9.04 10^3/uL (1.8-7.7); Neutrophils % 79.5 %; Nucleated Red Blood Cells % 0 %; Platelet Count 113 10^3/cmm (130-400); Red Blood Count 5.08 10^6/uL (4.1-5.3); Red Cell Distribution Width 13.6 % (12.1-15.1); White Blood Count 11.4 10^3/uL (4.0-10.0)
[2022-11-01 16:36] VITALS: RESP 19
[2022-11-01] MEDS: morphine 4 mg/mL SDV 1 mL IVP (16:36)
[2022-11-01] MEDS: ondansetron 2 mg/ML SDV 2 mL 4 MG IVP (16:36)
[2022-11-01] MEDS: clindamycin 600 MG/50 ML PREMIX 100 MG IV (16:57)
[2022-11-01 17:07] LABS: Alanine Aminotransferase 15 U/L (0-33); Alkaline Phosphatase 72 U/L (35-105); Anion Gap 14.8 (5-19); Aspartate Amino Transferase 19 U/L (0-32); Blood Urea Nitrogen 10 mg/dL (8-23); Carbon Dioxide 20 mmol/L (22-29); Chloride 106 mmol/L (98-107); Creatinine Clr Calc Pharmacy 107.4987; Globulin 3.4 g/dL (1.3-4.6); Glomerular Filtration Rate 124.6 mL/min (90-130); Glucose 79 mg/dL (65-115); Osmolality Calculated 282 mOsm/kg (285-295); Potassium 3.8 mmol/L (3.5-5.1); Sodium 137 mmol/L (136-145); Total Protein 7.4 g/dL (6.6-8.7)
[2022-11-01 17:14] VITALS: BP 152/82
[2022-11-01 17:16] VITALS: PULSE 71; O2SAT 97
--- NOTE | 2022-11-01 17:34 | W.ED.EXTPRO ---
HPI - Extremity Problem General: Chief complaint: Extremity Problem,Nontraumatic Stated complaint: arm pain and swelling Time Seen by Provider: 11/01/22 15:50 History of Present Illness: 62-year-old female presented emergency room with some redness and pain around her right elbow patient further reviews that she underwent biopsy of a lesion few days ago at a local clinic she described the pain as throbbing sensation with severity of 7 out of 10. Also noticed increased redness around the biopsy site but denies any drainage or bleeding from the area. No fever, chills, nausea, vomiting or right arm numbness or tingling. Review of Systems General: Reports: 10 or more systems reviewed and unremarkable except in HPI and below Musc: Reports: extremity pain; Denies: limited range of motion Skin/Breast: Reports: erythema, skin pain and skin swelling PFSH ED PFSH: Medical History (Updated 11/01/22 @ 17:41 by Renzo Pelayo MD) Chronic neck pain Chronic right shoulder pain Cirrhosis of liver History of past hepatitis C that was treated Constipation Degenerative disk disease Depression Diverticulosis of colon Encounter for chronic pain management Generalized anxiety disorder Herniation of left side of L4-L5 intervertebral disc History of 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 infection HTN (hypertension) Opioid contract exists Surgical History History of neck surgery Family History Mother Heart problem Brother Heart problem Social History Smoking and tobacco status: never smoked Second hand smoke exposure: Yes Smoking risk assessment/counseling performed?: No Alcohol intake: never Desire information about alcohol rehabilitation?: No Counseling given: No Substance/Drug Use: never Desire information about substance/drug rehabilitation?: No Counseling given: No Physical Exam Const: COMMON NORMALS: no acute distress, average body habitus, patient oriented x3, no limitations, healthy appearing, alert and well nourished Lymph: LYMPHATIC: no lymphadenopathy noted and no lymphedema noted Resp: COMMON NORMALS: normal respiratory effort, No retractions, No use of accessory muscles, clear to auscultation bilaterally and percussion normal AUSCULTATION: clear to auscultation bilaterally PERCUSSION: percussion normal Extremity: RIGHT UPPER EXTREMITY: Yes elbow joint (Suture in place but noticed diffuse redness around the sutures some limited) OTHER: No obvious drainage or bleeding from the suture site. Some pain with full range of motion. Neuro: COMMON NORMALS: patient oriented x3 SENSORIUM/ORIENTATION: Yes alert Skin: OTHER: Right elbow area with some diffuse redness and warmth. Again sutures are noted from surgical site but no obvious drainage or bleeding. Course Vital Signs: Vital signs: Vital Signs Temperature 98.0 F 11/01/22 14:58 Pulse Rate 77 11/01/22 18:00 Respiratory Rate 19 H 11/01/22 16:36 Blood Pressure 131/90 11/01/22 18:00 Pulse Oximetry 97 11/01/22 18:00 Oxygen Delivery Me thod Room Air 11/01/22 17:16 MDM - Extremity (Nontraumatic) Medical Decision Making Patient was made comfortable emergency room. Blood work was done I discussed the lab findings with the patient. Patient was given IV antibiotics and IV pain medication. Close follow-up PCP recommended in 2 days for wound recheck. Differential Diagnosis Likely gout, cellulitis and superficial thrombophlebitis (Abscess) Medical Records I reviewed the patient's medical records. Lab Data I reviewed the patient's lab results. 11/01/22 16:21 11/01/22 16:21 Laboratory Results WBC 11.4 10^3/uL (4.0-10.0) H 11/01/22 16:21 RBC 5.08 10^6/uL (4.1-5.3) 11/01/22 16:21 Hgb 14.1 g/dL (11.5-15.3) 11/01/22 16:21 Hct 43.1 % (37.0-47.0) 11/01/22 16:21 MCV 84.8 fl (81-99) 11/01/22 16:21 MCH 27.8 pg (28.0-34.0) L 11/01/22 16:21 MCHC 32.7 g/dL (30.0-36.0) 11/01/22 16:21 RDW 13.6 % (12.1-15.1) 11/01/22 16:21 Plt Count 113 10^3/cmm (130-400) L 11/01/22 16:21 MPV 12.0 fL (7.4-10.4) H 11/01/22 16:21 Neut % (Auto) 79.5 % 11/01/22 16:21 Lymph % (Auto) 11.8 % 11/01/22 16:21 [place] % (Auto) 6.8 % 11/01/22 16:21 Eos % (Auto) 1.1 % 11/01/22 16:21 Baso % (Auto) 0.3 % 11/01/22 16:21 Neut # (Auto) 9.04 10^3/uL (1.8-7.7) H 11/01/22 16:21 Lymph # (Auto) 1.3 10^3/uL (0.8-4.8) 11/01/22 16:21 [place] # (Auto) 0.8 10^3/uL (0.2-0.9) 11/01/22 16:21 Eos # (Auto) 0.1 10^3/uL (0.0-0.8) 11/01/22 16:21 Baso # (Auto) 0.0 10^3/uL (0.0-0.1) 11/01/22 16:21 Nucleated RBC % (auto) 0 % 11/01/22 16:21 Nucleated RBCs # 0.0 /100WBC 11/01/22 16:21 Sodium 137 mmol/L (136-145) 11/01/22 16:21 Potassium 3.8 mmol/L (3.5-5.1) 11/01/22 16:21 Chloride 106 mmol/L (98-107) 11/01/22 16:21 Carbon Dioxide 20 mmol/L (22-29) L 11/01/22 16:21 Anion Gap 14.8 (5-19) 11/01/22 16:21 BUN 10 mg/dL (8-23) 11/01/22 16:21 Creatinine 0.5 mg/dL (0.5-0.9) 11/01/22 16:21 GFR Calculation 124.6 mL/min (90-130) 11/01/22 16:21 Glucose 79 mg/dL (65-115) 11/01/22 16:21 Calculated Osmolality 282 mOsm/kg (285-295) L 11/01/22 16:21 Calcium 9.0 mg/dL (8.5-10.5) 11/01/22 16:21 Total Bilirubin 1.0 mg/dL (0.15-1.2) 11/01/22 16:21 AST 19 U/L (0-32) 11/01/22 16:21 ALT 15 U/L (0-33) 11/01/22 16:21 Alkaline Phosphatase 72 U/L (35-105) 11/01/22 16:21 Total Protein 7.4 g/dL (6.6-8.7) 11/01/22 16:21 Albumin 4.0 g/dL (3.5-5.2) 11/01/22 16:21 Globulin 3.4 g/dL (1.3-4.6) 11/01/22 16:21 Discharge Plan Discharge Patient Disposition: Home Clinical Impression: Cellulitis, Acute postoperative pain Condition: Stable Prescriptions: New clindamycin HCl 300 mg capsule 300 mg PO TID 7 Days Qty: 21 0RF Percocet 2.5-325 mg tablet 1 tab PO Q8H Qty: 10 0RF No Action acetaminophen 500 mg tablet 500 mg PO Q6H PRN (Reason: Pain) Qty: 100 3RF diclofenac sodium 1 % gel See Rx Instructions .ROUTE .COMPLEX Qty: 100 5RF Dose Instruction: APPLY 2 GRAMS TOPICAL TO SINGLE ELBOW, WRIST, OR HAND FOUR TIMES DAILY. HAND INCLUDES PALM, FINGERS AND BACK OF HAND. Rx Instructions: APPLY 2 GRAMS TOPICAL TO SINGLE ELBOW, WRIST, OR HAND FOUR TIMES DAILY PRN-HAND INCLUDES PALM, FINGERS AND BACK OF HAND. ondansetron HCl 4 mg tablet 4 mg PO Q6H PRN (Reason: Nausea And Vomiting) Qty: 30 1RF dicyclomine 10 mg capsule 10 mg PO TID PRN (Reason: cramps) Qty: 90 0RF docusate sodium 250 mg capsule 250 mg PO DAILY PRN (Reason: stool softener) Qty: 30 5RF pantoprazole 40 mg tablet,delayed release (DR/EC) 40 mg PO DAILY Qty: 90 8RF amlodipine 10 mg tablet 10 mg PO QAM Qty: 30 5RF lorazepam 0.5 mg tablet 0.5 mg PO TID PRN (Reason: anxiety) 30 Days Qty: 90 2RF escitalopram oxalate 10 mg tablet 10 mg PO DAILY Qty: 30 3RF Discharge Orders: Discharge ED (Routine); Ordered 11/01/22 Ordered By: Renzo Pelayo Referrals: Navin Horton MD [Primary Care Provider] - Discharge Diet: Advance as tolerated Discharge Activity: Increase activity as tolerated Patient Instructions: Opioid Safety, Pain Management Coding Level of Care Code ED Crime Scene Specialist for Nadia Poole
[2022-11-01 18:00] VITALS: BP 131/90; PULSE 77; O2SAT 97
== END 2022-11-01 18:02 | disposition home or self-care (01) ==
PROVIDERS: Emergency Provider Family Medicine; PCP Family Medicine Adult Medicine
DX: L03.113 Cellulitis of right upper limb (principal); G89.18 Other acute postprocedural pain; Z77.22 Contact with and (suspected) exposure to environmental tobacco smoke (acute) (chronic); I10 Essential (primary) hypertension; Z86.19 Personal history of other infectious and parasitic diseases
CPT/HCPCS: 36415; 80053; 85025; 87040; 96365; 96375; 99284; J2270; J2405; J3490

== ENCOUNTER 2022-11-01 22:42 | Inpatient (IN) | payer MEDICARE, MEDICAID, SELFPAY ==
[2022-11-01 22:45] VITALS: BP 126/64; PULSE 87; RESP 15; TEMP 36.6; O2SAT 96
[2022-11-01 23:53] LABS: Basophils % 0.4 %; Eosinophils # 0.2 10^3/uL (0.0-0.8); Hematocrit 40.4 % (37.0-47.0); Hemoglobin 13.2 g/dL (11.5-15.3); Lymphocytes # 1.7 10^3/uL (0.8-4.8); Lymphocytes % 16.2 %; Mean Corpuscular HGB Conc 32.7 g/dL (30.0-36.0); Mean Corpuscular Hemoglobin 27.8 pg (28.0-34.0); Mean Corpuscular Volume 85.1 fl (81-99); Mean Platelet Volume 12.1 fL (7.4-10.4); Monocytes # 0.7 10^3/uL (0.2-0.9); Monocytes % 6.7 %; Neutrophils # 7.92 10^3/uL (1.8-7.7); Neutrophils % 74.3 %; Nucleated Red Blood Cells % 0 %; Platelet Count 121 10^3/cmm (130-400); Red Blood Count 4.75 10^6/uL (4.1-5.3); Red Cell Distribution Width 13.5 % (12.1-15.1); White Blood Count 10.7 10^3/uL (4.0-10.0)
[2022-11-02] VITALS (22 sets, daily range): BP systolic 118–159; BP diastolic 62–84; PULSE 69–96; RESP 15–18; TEMP 36.8–37.6; O2SAT 95–99
[2022-11-02 00:23] LABS: Anion Gap 14.7 (5-19); Blood Urea Nitrogen 10 mg/dL (8-23); Calcium 9.1 mg/dL (8.5-10.5); Carbon Dioxide 21 mmol/L (22-29); Chloride 109 mmol/L (98-107); Glucose 103 mg/dL (65-115); Osmolality Calculated 291 mOsm/kg (285-295); Potassium 3.7 mmol/L (3.5-5.1); Sodium 141 mmol/L (136-145)
--- NOTE | 2022-11-02 01:24 | CTR_ITS ---
PROCEDURE INFORMATION: Exam: CT Right Upper Extremity With Contrast, Elbow Exam date and time: 11/02/2022 2:27 AM Age: 62 years old Clinical indication: Swelling; Elbow; Right; Prior surgery; Surgery date: Post-operative (0-2 days); Surgery type: Skin biopsy; Additional info: Skin biopsy; Significant redness/swelling/pain TECHNIQUE: Imaging protocol: Computed tomography of the right upper extremity with contrast. Exam focused on the elbow. Radiation optimization: All CT scans at this facility use at least one of these dose optimization techniques: automated exposure control; mA and/or kV adjustment per patient size (includes targeted exams where dose is matched to clinical indication); or iterative reconstruction. Contrast material: OMNI 350; Contrast volume: 75 ml; Contrast route: INTRAVENOUS (IV); REPORTING DATA: Count of CT and Cardiac NM exams in prior 12 months: This patient has received [address] and 0 known cardiac nuclear medicine studies in the 12 months prior to the current study. COMPARISON: CR XR shoulder RT min 2V* [id number] 09/19/2022 4:24 PM RADIATION DOSE METRICS: Total DLP (mGy-cm): 83.99 FINDINGS: Bones/joints: No acute fracture or dislocation. Mild age-appropriate DJD. Soft tissues: Prominent posterior elbow subcutaneous edema with fluid. There is also antecubital skin thickening with subcutaneous edema. No rim enhancing fluid collection is visualized. No evidence of soft tissue air. CT/CT elbow RT w con [id number] IMPRESSION: 1. No acute fracture or dislocation visualized. 2. Anterior and posterior elbow edema and fluid as described with no actual abscess noted. Cellulitis is likely anteriorly and laterally with olecranon bursitis likely posteriorly.
--- NOTE | 2022-11-02 01:25 | W.ED.EXTPRO ---
Documented by User: SHEILA Baxtre 11/02/22 17:43 HPI - Extremity Problem General: Chief complaint: ER Hold Stated complaint: right swelling and pain to surgery site R arm Time Seen by Provider: 11/02/22 01:17 Source: patient Mode of arrival: ambulatory Limitations: no limitations History of Present Illness: Patient is a 62-year-old female presents to ED today with a complaint of redness, swelling, and significant pain surrounding her right elbow. She states several days ago she had what she believes is a basal cell carcinoma removed by her primary care provider Dr. Horton. She states biopsy/removal was very deep and required multilayer closure. She states yesterday she began noticing some redness and pain surrounding the area. She was seen in our emergency department early this morning and had labs performed and was given IV clindamycin. Blood cultures were obtained. She states he was not able to fill her antibiotics or her pain medications following discharge and states over the course of the day symptoms have rapidly progressed and is now complaining of worsening redness, swelling, warmth, and significant discomfort. MD Complaint: extremity pain, joint swelling and joint pain Onset (ago): day(s) Pain Consistency: constant Location: right and upper extremity Severity scale (1-10): 10 Radiation: none Relieving factors: nothing Exacerbating factors: range of motion Associated symptoms: Reports no associated symptoms; Deny chest pain or fever(s) Context: other (recent skin biopsy) Review of Systems Const: Denies: fever(s), chills, body aches, fatigue or malaise Card: Denies: chest pain Resp: Denies: dyspnea GI: Denies: nausea or vomiting Musc: Reports: extremity pain, extremity swelling, joint pain, joint swelling, joint redness, joint warmth and limited range of motion Neuro: Denies: numbness in extremities, weakness in extremities or sensory changes PFSH ED PFSH: Medical History Chronic neck pain Chronic right shoulder pain Cirrhosis of liver History of past hepatitis C that was treated Constipation Degenerative disk disease Depression Diverticulosis of colon Encounter for chronic pain management Generalized anxiety disorder Herniation of left side of L4-L5 intervertebral disc History of 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 infection HTN (hypertension) Opioid contract exists Surgical History History of neck surgery S/P TIPS (transjugular intrahepatic portosystemic shunt) Family History Mother Heart problem Brother Heart problem Social History Smoking and tobacco status: never smoked Second hand smoke exposure: Yes Smoking risk assessment/counseling performed?: No Alcohol intake: never Desire information about alcohol rehabilitation?: No Counseling given: No Substance/Drug Use: never Desire information about substance/drug rehabilitation?: No Counseling given: No Physical Exam Const: COMMON NORMALS: no acute distress, average body habitus, patient oriented x3, no limitations, healthy appearing, alert and well nourished Resp: COMMON NORMALS: normal respiratory effort and clear to auscultation bilaterally AUSCULTATION: clear to auscultation bilaterally Cardio: COMMON NORMALS: regular rate and regular rhythm RATE: regular rate RHYTHM: regular rhythm Extremity: COMMON NORMALS: capillary refill normal GENERAL: Yes normal exam except as noted RIGHT UPPER EXTREMITY: Yes elbow joint OTHER: Patient has fairly significant erythema/warmth surrounding the recent skin biopsy site; she has exquisite tenderness to palpation with decreased range of motion of the elbow joint; distally pulses and sensation are intact Neuro: COMMON NORMALS: patient oriented x3, moves all extremities, no focal motor deficits and no sensory deficits noted SENSORIUM/ORIENTATION: Yes alert Course ED course: Care will be transferred to Dr. Warren pending results of CT elbow. Vital signs are stable. She has a normal white count. CRP was elevated at 50.2. Given rapid progression of her erythema and discomfort she most likely would benefit from admission and IV antibiotics. IV vancomycin has been initiated here. Vital Signs: Vital signs: Vital Signs Temperature 98.3 F 11/08/22 15:53 Pulse Rate 61 11/08/22 15:53 Respiratory Rate 17 11/08/22 15:53 Blood Pressure 138/84 11/08/22 15:53 Pulse Oximetry 98 11/08/22 15:53 Oxygen Delivery Me thod Room Air 11/08/22 12:09 Oxygen Flow Rate 8 11/05/22 19:43 MDM - Extremity (Nontraumatic) Lab Data 11/08/22 03:30 11/08/22 03:[address] 11/02/22 01:24 IMPRESSION: 1. No acute fracture or dislocation visualized. 2. Anterior and posterior elbow edema and fluid as described with no actual abscess noted. Cellulitis is likely anteriorly and laterally with olecranon bursitis likely posteriorly. Renal Ultrasound 11/05/22 20:50 IMPRESSION: 1. No hydronephrosis or renal atrophy. 2. Hypoechoic mass superior pole RIGHT kidney may be a cyst. There does appear to be central vascularity suggesting this may be a solid mass. Consider follow-up imaging to exclude solid mass. CT or MRI renal mass protocol recommended. 3. Nondistended urinary bladder. Laboratory Results WBC 10.7 10^3/uL (4.0-10.0) H 11/01/22 23:40 RBC 4.75 10^6/uL (4.1-5.3) 11/01/22 23:40 Hgb 13.2 g/dL (11.5-15.3) 11/01/22 23:40 Hct 40.4 % (37.0-47.0) 11/01/22 23:40 MCV 85.1 fl (81-99) 11/01/22 23:40 MCH 27.8 pg (28.0-34.0) L 11/01/22 23:40 MCHC 32.7 g/dL (30.0-36.0) 11/01/22 23:40 RDW 13.5 % (12.1-15.1) 11/01/22 23:40 Plt Count 121 10^3/cmm (130-400) L 11/01/22 23:40 MPV 12.1 fL (7.4-10.4) H 11/01/22 23:40 Neut % (Auto) 74.3 % 11/01/22 23:40 Lymph % (Auto) 16.2 % 11/01/22 23:40 Cotton % (Auto) 6.7 % 11/01/22 23:40 Eos % (Auto) 2.0 % 11/01/22 23:40 Baso % (Auto) 0.4 % 11/01/22 23:40 Neut # (Auto) 7.92 10^3/uL (1.8-7.7) H 11/01/22 23:40 Lymph # (Auto) 1.7 10^3/uL (0.8-4.8) 11/01/22 23:40 Cotton # (Auto) 0.7 10^3/uL (0.2-0.9) 11/01/22 23:40 Eos # (Auto) 0.2 10^3/uL (0.0-0.8) 11/01/22 23:40 Baso # (Auto) 0.0 10^3/uL (0.0-0.1) 11/01/22 23:40 Nucleated RBC % (auto) 0 % 11/01/22 23:40 Nucleated RBCs # 0.0 /100WBC 11/01/22 23:40 Sodium 141 mmol/L (136-145) 11/01/22 23:40 Potassium 3.7 mmol/L (3.5-5.1) 11/01/22 23:40 Chloride 109 mmol/L (98-107) H 11/01/22 23:40 Carbon Dioxide 21 mmol/L (22-29) L 11/01/22 23:40 Anion Gap 14.7 (5-19) 11/01/22 23:40 BUN 10 mg/dL (8-23) 11/01/22 23:40 Creatinine 0.6 mg/dL (0.5-0.9) 11/01/22 23:40 GFR Calculation 101.0 mL/min (90-130) 11/01/22 23:40 Glucose 103 mg/dL (65-115) 11/01/22 23:40 Estimat Average Glucose 91 11/01/22 23:40 Hemoglobin A1c 4.8 % (4.0-6.0) 11/01/22 23:40 Calculated Osmolality 291 mOsm/kg (285-295) 11/01/22 23:40 Lactic Acid Cancelled 11/01/22 23:40 Lactate 0.6 mmol/L (0.5-2.2) 11/02/22 02:50 Calcium 9.1 mg/dL (8.5-10.5) 11/01/22 23:40 C-Reactive Protein 50.2 mg/L (0.0-4.9) H 11/01/22 23:40 C-Reactive Protein Cancelled 11/01/22 23:40 Vitamin B12 237 pg/mL (232-1245) 11/01/22 23:40 TSH 7.94 uIU/mL (0.27-4.20) H 11/01/22 23:40 Free T4 1.19 ng/dL (0.82-1.77) 11/01/22 23:40 Free T3 4.6 PG/ML (2.0-4.4) H 11/01/22 23:40 Discharge Plan Discharge Patient Disposition: Placed in Observation Admit Provider: Elan Rizzo Clinical Impression: Cellulitis, Post op infection Discharge Diet: Cardiac Sign Out Sign Out Data: Patient Sign Out occurred on 11/02/22 at 06:24. Patient's care was discussed, and care was transferred from to Augie Kilpatrick MD. Coding Level of Care Code ED Well Tester for Chg Fwd Documented by User: Augie Kilpatrick MD 11/11/22 03:34 HPI - Extremity Problem General: Chief complaint: ER Hold Stated complaint: right swelling and pain to surgery site R arm Time Seen by Provider: 11/02/22 01:17 [facility] ED PFSH: Medical History Chronic neck pain Chronic right shoulder pain Cirrhosis of liver History of past hepatitis C that was treated Constipation Degenerative disk disease Depression Diverticulosis of colon Encounter for chronic pain management Generalized anxiety disorder Herniation of left side of L4-L5 intervertebral disc History of 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 infection HTN (hypertension) Opioid contract exists Surgical History History of neck surgery S/P TIPS (transjugular intrahepatic portosystemic shunt) Family History Mother Heart problem Brother Heart problem Social History Smoking and tobacco status: never smoked Second hand smoke exposure: Yes Smoking risk assessment/counseling performed?: No Alcohol intake: never Desire information about alcohol rehabilitation?: No Counseling given: No Substance/Drug Use: never Desire information about substance/drug rehabilitation?: No Counseling given: No Course Vital Signs: Vital signs: Vital Signs Temperature 98.3 F 11/08/22 15:53 Pulse Rate 61 11/08/22 15:53 Respiratory Rate 17 11/08/22 15:53 Blood Pressure 138/84 11/08/22 15:53 Pulse Oximetry 98 11/08/22 15:53 Oxygen Delivery Me thod Room Air 11/08/22 12:09 Oxygen Flow Rate 8 11/05/22 19:43 MDM - Extremity (Nontraumatic) Medical Decision Making Patient care handoff received from Dr. Warren pending completion of ED evaluation. Laboratory studies, imaging reviewed. I personally saw and evaluated the patient. Patient appears to have failed outpatient management of antibiotics and given clinical exam requires hospitalization for antibiotics. The results of ED evaluation were discussed with the patient including plan for admission due to requirement for level of care not available if discharged to prevent significant worsening/deterioration. Patient agreeable with plan. Discussed with hospitalist service who was agreeable to admit patient. Augie Kilpatrick MD Emergency Medicine Lab Data 11/08/22 03:30 11/08/22 03:[address] 11/02/22 01:24 IMPRESSION: 1. No acute fracture or dislocation visualized. 2. Anterior and posterior elbow edema and fluid as described with no actual abscess noted. Cellulitis is likely anteriorly and laterally with olecranon bursitis likely posteriorly. Renal Ultrasound 11/05/22 20:50 IMPRESSION: 1. No hydronephrosis or renal atrophy. 2. Hypoechoic mass superior pole RIGHT kidney may be a cyst. There does appear to be central vascularity suggesting this may be a solid mass. Consider follow-up imaging to exclude solid mass. CT or MRI renal mass protocol recommended. 3. Nondistended urinary bladder. Laboratory Results WBC 10.7 10^3/uL (4.0-10.0) H 11/01/22 23:40 RBC 4.75 10^6/uL (4.1-5.3) 11/01/22 23:40 Hgb 13.2 g/dL (11.5-15.3) 11/01/22 23:40 Hct 40.4 % (37.0-47.0) 11/01/22 23:40 MCV 85.1 fl (81-99) 11/01/22 23:40 MCH 27.8 pg (28.0-34.0) L 11/01/22 23:40 MCHC 32.7 g/dL (30.0-36.0) 11/01/22 23:40 RDW 13.5 % (12.1-15.1) 11/01/22 23:40 Plt Count 121 10^3/cmm (130-400) L 11/01/22 23:40 MPV 12.1 fL (7.4-10.4) H 11/01/22 23:40 Neut % (Auto) 74.3 % 11/01/22 23:40 Lymph % (Auto) 16.2 % 11/01/22 23:40 Cotton % (Auto) 6.7 % 11/01/22 23:40 Eos % (Auto) 2.0 % 11/01/22 23:40 Baso % (Auto) 0.4 % 11/01/22 23:40 Neut # (Auto) 7.92 10^3/uL (1.8-7.7) H 11/01/22 23:40 Lymph # (Auto) 1.7 10^3/uL (0.8-4.8) 11/01/22 23:40 Cotton # (Auto) 0.7 10^3/uL (0.2-0.9) 11/01/22 23:40 Eos # (Auto) 0.2 10^3/uL (0.0-0.8) 11/01/22 23:40 Baso # (Auto) 0.0 10^3/uL (0.0-0.1) 11/01/22 23:40 Nucleated RBC % (auto) 0 % 11/01/22 23:40 Nucleated RBCs # 0.0 /100WBC 11/01/22 23:40 Sodium 141 mmol/L (136-145) 11/01/22 23:40 Potassium 3.7 mmol/L (3.5-5.1) 11/01/22 23:40 Chloride 109 mmol/L (98-107) H 11/01/22 23:40 Carbon Dioxide 21 mmol/L (22-29) L 11/01/22 23:40 Anion Gap 14.7 (5-19) 11/01/22 23:40 BUN 10 mg/dL (8-23) 11/01/22 23:40 Creatinine 0.6 mg/dL (0.5-0.9) 11/01/22 23:40 GFR Calculation 101.0 mL/min (90-130) 11/01/22 23:40 Glucose 103 mg/dL (65-115) 11/01/22 23:40 Estimat Average Glucose 91 11/01/22 23:40 Hemoglobin A1c 4.8 % (4.0-6.0) 11/01/22 23:40 Calculated Osmolality 291 mOsm/kg (285-295) 11/01/22 23:40 Lactic Acid Cancelled 11/01/22 23:40 Lactate 0.6 mmol/L (0.5-2.2) 11/02/22 02:50 Calcium 9.1 mg/dL (8.5-10.5) 11/01/22 23:40 C-Reactive Protein 50.2 mg/L (0.0-4.9) H 11/01/22 23:40 C-Reactive Protein Cancelled 11/01/22 23:40 Vitamin B12 237 pg/mL (232-1245) 11/01/22 23:40 TSH 7.94 uIU/mL (0.27-4.20) H 11/01/22 23:40 Free T4 1.19 ng/dL (0.82-1.77) 11/01/22 23:40 Free T3 4.6 PG/ML (2.0-4.4) H 11/01/22 23:40 Discharge Plan Discharge Patient Disposition: Placed in Observation Admit Provider: Elan Rizzo Clinical Impression: Cellulitis, Post op infection Discharge Diet: Cardiac Sign Out Sign Out Data: Patient Sign Out occurred on 11/02/22 at 06:24. Patient's care was discussed, and care was transferred from to Augie Kilpatrick MD. Coding Level of Care Code ED Well Tester for Nadia Poole
[2022-11-02] MEDS: ondansetron 2 mg/ML SDV 2 mL 4 MG IVP ×2 (02:07→20:56)
[2022-11-02] MEDS: morphine 4 mg/mL SDV 1 mL IVP ×3 (02:07→06:26)
[2022-11-02] MEDS: iohexol 350 mg/mL 500 mL Btl (per mL) IV (02:35)
[2022-11-02 03:14] LABS: C Reactive Protein 50.2 mg/L (0.0-4.9)
[2022-11-02 03:21] LABS: Lactate (Lactic Acid level) 0.6 mmol/L (0.5-2.2)
[2022-11-02] MEDS: vancomycin 1,000 MG in sodium chloride 0.9% 250 ML 250 MG IV ×2 (03:45→17:03)
[2022-11-02 04:44] LABS: Reflex Lactate Order REFLEX LACTIC ORDERD
[2022-11-02] MEDS: ketorolac 30 mg/mL INJ 15 MG IVP (06:24)
[2022-11-02] MEDS: clindamycin 600 MG/50 ML PREMIX 100 MG IV (08:48)
--- NOTE | 2022-11-02 09:01 | P.HP_ITS ---
Providers/Chief Complaint Primary Care Provider: Navin Horton MD Chief Complaint: right swelling and pain to surgery site R arm History of Present Illness Stella Covarrubias is a 62 year old female with past medical history of liver ci rrhosis, hepatitis C posttreatment, diverticulosis, chronic pain disorder who was previously on narcotic pain medications and has since been weaned off, hypertension, generalized anxiety disorder who underwent basal cell carcinoma resection at primary's office from right upper arm just proximal to the elbow on. Since Thursday patient has been having worsening redness of the elbow along with pain. She has been in the ER once since then and was discharged on oral clindamycin. As the elbow and the skin continue to got worse she present to the ER today. She otherwise denies any nausea vomiting, headache, dysuria, diarrhea. Does complain of fever without chills at home. Blood work appreciated for a white count of 10.7, stable hemoglobin, stable CMP with a TSH of 7.94. Review of Systems General: Reports: 10 or more systems reviewed and unremarkable except in HPI and below Const: Denies: fever(s), chills, body aches, change in appetite, change in weight, malaise, night sweats, diaphoresis, change in sleep pattern, daytime sleepiness or snoring Eyes: Denies: change in vision, blurry vision, photophobia, eye discomfort or eye discharge ENMT: Denies: throat pain, enlarged tonsils, hoarseness, mouth pain, oral sores, dry mouth, tinnitus, nasal congestion or post nasal drip Card: Denies: chest pain, palpitations, irregular heart rhythm, edema, swelling of feet/ankles, lightheadedness, syncope, pre-syncope, dyspnea on exertion, orthopnea, leg pain with exertion or acrocyanosis Resp: Denies: dyspnea, productive cough, non-productive cough, wheezing, stri amanda, pain on inspiration, change in phlegm color, hemoptysis or chest congestion GI: Denies: abdominal pain, nausea, vomiting, hematemesis, coffee ground emesis, dysphagia, heartburn, diarrhea, constipation, bloating, GI cramping, change in bowel habits, pain on defecation, hematochezia or melena : Denies: flank pain, dysuria, urinary frequency, urinary urgency, urinary hesitancy, nocturia or hematuria Musc: Denies: neck pain, back pain, extremity pain, joint pain, joint swelling, joint redness, joint stiffness or limited range of motion Neuro: Denies: headache(s), numbness in extremities, weakness in extremities, sensory changes, lack of coordination, difficulty walking, frequent falls, dizziness, vertigo, confusion, Slurred speech present, difficulty communicating thoughts or seizure-like activity Psych: Denies: anxiety, depression, mood swings, panic attacks, hopelessness or irritability Endo: Denies: polyuria, polydipsia, tired all the time, cold intolerance, excessive sweating, flushing or heat intolerance Dariel/Lymph: Denies: easy bruising or easy bleeding All/Imm: Denies: tongue swelling, facial swelling or acute wheezing Medications/Allergies Home Medications Medication Instructions Recorded Confirmed Last Taken Type acetaminophen 500 mg tablet 500 mg PO Q6H PRN Pain #100 tabs 02/21/22 11/02/22 Unknown Rx diclofenac sodium 1 % topical gel See Rx Instructions .Route 02/21/22 11/02/22 Unknown Rx .COMPLEX #100 grams amlodipine 10 mg tablet 10 mg PO QAM #30 tabs 08/15/22 11/02/22 11/01/22 Rx lorazepam 0.5 mg tablet 0.5 mg PO TID PRN anxiety 30 days 08/18/22 11/02/22 11/01/22 Rx #90 tabs escitalopram oxalate 10 mg tablet 10 mg PO DAILY mental health #30 10/14/22 11/02/22 11/01/22 Rx tabs dicyclomine 10 mg capsule 10 mg PO TID PRN cramps #90 caps 10/29/22 11/02/22 11/01/22 Rx docusate sodium 250 mg capsule 250 mg PO DAILY PRN stool softener 10/29/22 11/02/22 11/01/22 Rx #30 caps ondansetron HCl 4 mg tablet 4 mg PO Q6H PRN Nausea And 10/29/22 11/02/22 11/01/22 Rx Vomiting #30 tabs pantoprazole 40 mg tablet,delayed 40 mg PO DAILY #90 tabs 10/29/22 11/02/22 11/01/22 Rx release oxycodone-acetaminophen 2.5 mg-325 1 tab PO Q8H #10 tabs 11/01/22 11/02/22 Unknown Rx mg tablet (Percocet) Allergies Allergy/AdvReac Type Severity Reaction Status Date / Time prochlorperazine Allergy Intermediate ADR-Irritab Verified 11/01/22 22:50 [From Compazine] le compazine Allergy makes her Uncoded 11/01/22 22:50 want to run PFSH Acute PFSH: Medical History (Updated 11/02/22 @ 13:11 by Elan Rizzo MD) Chronic neck pain Chronic right shoulder pain Cirrhosis of liver History of past hepatitis C that was treated Constipation Degenerative disk disease Depression Diverticulosis of colon Encounter for chronic pain management Generalized anxiety disorder Herniation of left side of L4-L5 intervertebral disc History of 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 infection HTN (hypertension) Opioid contract exists Surgical History (Updated 11/02/22 @ 11:27 by Elan Rizzo MD) History of neck surgery S/P TIPS (transjugular intrahepatic portosystemic shunt) Family History Mother Heart problem Brother Heart problem Social History Smoking and tobacco status: never smoked Second hand smoke exposure: Yes Smoking risk assessment/counseling performed?: No Alcohol intake: never Desire information about alcohol rehabilitation?: No Counseling given: No Substance/Drug Use: never Desire information about substance/drug rehabilitation?: No Counseling given: No Vitals/I&O/Wt Last Vital Signs Temp 97.9 F 11/01/22 22:45 Pulse 80 11/02/22 08:49 Resp 15 11/02/22 08:49 BP 137/70 11/02/22 08:49 Pulse Ox 95 11/02/22 08:49 O2 Del Method Room Air 11/02/22 08:49 11/01/22 11/02/22 11/02/22 22:59 06:59 14:59 Intake Total 250 / 250 Balance 250 / 250 Weight last 48 hrs Weight 65.771 kg Physical Exam Narrative: General: No acute distress, AO x3 HEENT: PERRLA, pupils bilaterally equal and reactive Chest: Normal vesicular breath sounds, no added sounds, equal good air entry bilaterally CVS: S1-S2 regular, no murmurs, no tachycardia, no gallops, no rubs Abdomen: Soft, nontender, no organomegaly, bowel sounds present Neuro: No focal deficits, no facial deformity, AO x3, power 5/5 in all limbs Skin: As below. Sutures present in the anterior aspect laterally and antec ubital area, erythema along with increased localized temperature going on around the elbow without any fluctuance Skin: NARRATIVE SKIN EXAM: Data 11/01/22 23:40 11/01/22 23:40 Other Labs: Radiology Impressions Elbow CT 11/02/22 01:24 IMPRESSION: 1. No acute fracture or dislocation visualized. 2. Anterior and posterior elbow edema and fluid as described with no actual abscess noted. Cellulitis is likely anteriorly and laterally with olecranon bursitis likely posteriorly. Laboratory Results WBC 10.7 10^3/uL (4.0-10.0) H 11/01/22 23:40 RBC 4.75 10^6/uL (4.1-5.3) 11/01/22 23:40 Hgb 13.2 g/dL (11.5-15.3) 11/01/22 23:40 Hct 40.4 % (37.0-47.0) 11/01/22 23:40 MCV 85.1 fl (81-99) 11/01/22 23:40 MCH 27.8 pg (28.0-34.0) L 11/01/22 23:40 MCHC 32.7 g/dL (30.0-36.0) 11/01/22 23:40 RDW 13.5 % (12.1-15.1) 11/01/22 23:40 Plt Count 121 10^3/cmm (130-400) L 11/01/22 23:40 MPV 12.1 fL (7.4-10.4) H 11/01/22 23:40 Neut % (Auto) 74.3 % 11/01/22 23:40 Lymph % (Auto) 16.2 % 11/01/22 23:40 Whitman % (Auto) 6.7 % 11/01/22 23:40 Eos % (Auto) 2.0 % 11/01/22 23:40 Baso % (Auto) 0.4 % 11/01/22 23:40 Neut # (Auto) 7.92 10^3/uL (1.8-7.7) H 11/01/22 23:40 Lymph # (Auto) 1.7 10^3/uL (0.8-4.8) 11/01/22 23:40 Whitman # (Auto) 0.7 10^3/uL (0.2-0.9) 11/01/22 23:40 Eos # (Auto) 0.2 10^3/uL (0.0-0.8) 11/01/22 23:40 Baso # (Auto) 0.0 10^3/uL (0.0-0.1) 11/01/22 23:40 Nucleated RBC % (auto) 0 % 11/01/22 23:40 Nucleated RBCs # 0.0 /100WBC 11/01/22 23:40 Sodium 141 mmol/L (136-145) 11/01/22 23:40 Potassium 3.7 mmol/L (3.5-5.1) 11/01/22 23:40 Chloride 109 mmol/L (98-107) H 11/01/22 23:40 Carbon Dioxide 21 mmol/L (22-29) L 11/01/22 23:40 Anion Gap 14.7 (5-19) 11/01/22 23:40 BUN 10 mg/dL (8-23) 11/01/22 23:40 Creatinine 0.6 mg/dL (0.5-0.9) 11/01/22 23:40 GFR Calculation 101.0 mL/min (90-130) 11/01/22 23:40 Glucose 103 mg/dL (65-115) 11/01/22 23:40 Estimat Average Glucose 91 11/01/22 23:40 Hemoglobin A1c 4.8 % (4.0-6.0) 11/01/22 23:40 Calculated Osmolality 291 mOsm/kg (285-295) 11/01/22 23:40 Lactic Acid Cancelled 11/01/22 23:40 Lactate 0.6 mmol/L (0.5-2.2) 11/02/22 02:50 Calcium 9.1 mg/dL (8.5-10.5) 11/01/22 23:40 C-Reactive Protein 50.2 mg/L (0.0-4.9) H 11/01/22 23:40 C-Reactive Protein Cancelled 11/01/22 23:40 Vitamin B12 237 pg/mL (232-1245) 11/01/22 23:40 Procalcitonin 0.10 ng/mL (0-0.5) 11/02/22 Unknown TSH 7.94 uIU/mL (0.27-4.20) H 11/01/22 23:40 Micro: Microbiology 11/02/22 08:00 Blood Culture - Preliminary Blood SPECIMEN COLLECTED A&P Assessment and plan (1) Postoperative wound cellulitis: At the site of resection of a basal cell carcinoma done on 10/29. Check blood culture, MRSA swab. Empirically start patient on IV vancomycin and Zosyn. Elbow elevation. Daily examination. CT done in the ER negative for any collection IV morphine 1 mg every 6 hours as needed, tramadol 50 mg every 4 hours as needed for pain. (2) Basal cell carcinoma (BCC): (3) HTN (hypertension): Goal blood pressure less than 140/90 mmHg. Continue with home dose of amlodipine. (4) Olecranon bursitis of right elbow: Cold compression Plan Cardiac diet. Heparin 5000 every 12 hourly for DVT prophylaxis Protonix for PUD prophylaxis. Attestations Medical Necessity Statement*: Admission for more than 2 midnights for management of postoperative wound cellulitis in a patient who recently had basal cell carcinoma resection Diagnoses Postoperative wound cellulitis T81.49XA Basal cell carcinoma (BCC) C44.91 HTN (hypertension) I10 Olecranon bursitis of right elbow M70.21
[2022-11-02 10:37] LABS: Estmated Average Glucose 91; Hemoglobin A1C 4.8 % (4.0-6.0)
[2022-11-02] MEDS: escitalopram 10 mg Tablet PO (10:55)
[2022-11-02] MEDS: pantoprazole DR 40 mg Tablet PO (10:55)
[2022-11-02] MEDS: heparin 5,000 unit/mL INJ 1 mL 5000 UNIT SUBCUT ×2 (10:55→21:35)
[2022-11-02] MEDS: LORazepam 0.5 mg Tablet PO (10:58)
[2022-11-02] MEDS: morphine 4 mg/mL SDV 1 mL 2 MG IVP (10:59)
[2022-11-02 11:26] LABS: Thyroid Stimulating Hormone 7.94 uIU/mL (0.27-4.20); Vitamin B12 237 pg/mL (232-1245)
[2022-11-02] MEDS: piperacillin-tazobactam 3.375 GM in sodium chloride 0.9% (plus) 50 ML IV ×2 (12:31→21:35)
[2022-11-02] MEDS: TRAMadol 50 mg Tablet PO ×2 (14:38→20:56)
[2022-11-02] MEDS: morphine 4 mg/mL SDV 1 mL 1 MG IVP ×2 (15:32→20:50)
[2022-11-02 18:04] LABS: Free T4 Free Thyroxine 1.19 ng/dL (0.82-1.77); T3 Free 4.6 PG/ML (2.0-4.4)
[2022-11-03] VITALS (14 sets, daily range): BP systolic 121–144; BP diastolic 72–94; PULSE 67–80; RESP 16–18; TEMP 36.4–36.9; O2SAT 93–98; BMI 26.6
[2022-11-03] MEDS: morphine 4 mg/mL SDV 1 mL 1 MG IVP ×3 (02:08→12:56)
[2022-11-03] MEDS: TRAMadol 50 mg Tablet PO ×2 (03:03→10:07)
[2022-11-03] MEDS: vancomycin 1,000 MG in sodium chloride 0.9% 250 ML 250 MG IV ×2 (04:29→16:58)
[2022-11-03 05:20] LABS: Basophils % 0.7 %; Eosinophils # 0.2 10^3/uL (0.0-0.8); Eosinophils % 2.5 %; Hematocrit 37.1 % (37.0-47.0); Hemoglobin 11.8 g/dL (11.5-15.3); Lymphocytes # 1.4 10^3/uL (0.8-4.8); Mean Corpuscular HGB Conc 31.8 g/dL (30.0-36.0); Mean Corpuscular Hemoglobin 27.1 pg (28.0-34.0); Mean Corpuscular Volume 85.1 fl (81-99); Monocytes # 0.4 10^3/uL (0.2-0.9); Monocytes % 7.1 %; Neutrophils # 4.01 10^3/uL (1.8-7.7); Neutrophils % 66.4 %; Nucleated Red Blood Cells % 0 %; Platelet Count 131 10^3/cmm (130-400); Red Blood Count 4.36 10^6/uL (4.1-5.3); Red Cell Distribution Width 13.1 % (12.1-15.1)
[2022-11-03] MEDS: piperacillin-tazobactam 3.375 GM in sodium chloride 0.9% (plus) 50 ML IV ×3 (05:44→20:39)
[2022-11-03] MEDS: amlodipine 10 mg Tablet PO (05:45)
[2022-11-03 06:12] LABS: Folate Level 12.3 ng/mL (4.8-37.3)
[2022-11-03 06:14] LABS: Alanine Aminotransferase 8 U/L (0-33); Albumin Level 3.1 g/dL (3.5-5.2); Alkaline Phosphatase 63 U/L (35-105); Anion Gap 14.2 (5-19); Aspartate Amino Transferase 14 U/L (0-32); Blood Urea Nitrogen 7 mg/dL (8-23); Calcium 8.6 mg/dL (8.5-10.5); Carbon Dioxide 21 mmol/L (22-29); Chloride 103 mmol/L (98-107); Creatinine Clr Calc Pharmacy 107.4987; Glomerular Filtration Rate 124.6 mL/min (90-130); Glucose 102 mg/dL (65-115); Magnesium 1.7 mg/dL (1.7-2.3); Osmolality Calculated 278 mOsm/kg (285-295); Potassium 3.2 mmol/L (3.5-5.1); Sodium 135 mmol/L (136-145); Total Bilirubin 0.7 mg/dL (0.15-1.2); Total Protein 6.1 g/dL (6.6-8.7)
[2022-11-03 06:51] LABS: Chol HDL Ratio 3.27 mg/dL (0.0-4.40); Cholesterol 98 mg/dL (0-200); HDL Cholesterol 30 mg/dL (60-100); LDL Cholesterol Calculated 50 mg/dL (50-129); LDL HDL Ratio 1.67 RATIO (0.00-3.22); Triglycerides 91 mg/dL (0-150)
[2022-11-03] MEDS: pantoprazole DR 40 mg Tablet PO (07:54)
[2022-11-03] MEDS: escitalopram 10 mg Tablet PO (07:54)
[2022-11-03 09:57] LABS: Add Urine Microscopic? NO; Charge for UA Resulting for Rev
[2022-11-03 10:12] LABS: Bilirubin Urine Neg (Negative); Blood Urine Neg (Negative); Glucose Urine UA Norm (Normal); Ketones Urine Negative (Negative); Leukocyte Esterase Urine Negative (Negative); Nitrate Urine Negative (Negative); Protein Urine Neg (Negative); Urine Appearance Clear (CLEAR); Urine Color Straw (Yellow); Urobilinogen Urine Norm (Negative); pH Urine 6 (5-7)
[2022-11-03] MEDS: ondansetron 2 mg/ML SDV 2 mL 4 MG IVP (10:26)
--- NOTE | 2022-11-03 13:23 | P.CONIM_ITS ---
Providers/Reason For Consult Consulting Physician/Specialty*: Whitney Seymour MD - Orthopedics Reason for Consult*: Swollen right elbow status post biopsy by primary care Requesting Physician: Luis Alberto Smith MD Attending Physician: Luis Alberto Smith MD Primary Care Provider: Navin Horton MD History of Present Illness History of Present Illness Stella Covarrubias is a 62 year old female who presented to the emergency room with complaints of redness swelling and pain surrounding her elbow. The patient noted that several days prior, she had a basal cell carcinoma removed by her primary care provider, Dr. Horton. She states that the biopsy removal was very deep requiring a multilayer layered closure. The day prior to admission. She began to experience increased redness and swelling as well as pain to the area. Patient presented to the emergency department had labs and was given IV clindamycin. She was unable to fill her oral antibiotics, and her symptoms progressed so she returned in the evening for further treatment. Patient was admitted to the hospital for definitive care. Review of Systems General: Reports: 10 or more systems reviewed and unremarkable except in HPI and below Const: Denies: fever(s), chills, body aches, change in appetite, change in weight, fatigue, malaise, night sweats, diaphoresis, change in sleep pattern, daytime sleepiness or snoring Eyes: Denies: change in vision, blurry vision, photophobia, eye discomfort or eye discharge ENMT: Denies: throat pain, enlarged tonsils, hoarseness, mouth pain, oral sores, dry mouth, tinnitus, nasal congestion or post nasal drip Card: Denies: chest pain, palpitations, irregular heart rhythm, edema, swelling of feet/ankles, lightheadedness, syncope, pre-syncope, dyspnea on exertion, orthopnea, leg pain with exertion or acrocyanosis Resp: Denies: dyspnea, productive cough, non-productive cough, wheezing, stridor, pain on inspiration, change in phlegm color, hemoptysis or chest congestion GI: Denies: abdominal pain, nausea, vomiting, hematemesis, coffee ground emesi s, dysphagia, heartburn, diarrhea, constipation, bloating, GI cramping, change in bowel habits, pain on defecation, hematochezia or melena : Denies: flank pain, dysuria, urinary frequency, urinary urgency, urinary hesitancy, nocturia or hematuria Musc: Reports: extremity swelling and joint warmth; Denies: neck pain, back pain, extremity pain, joint pain, joint swelling, joint redness, joint stiffness or limited range of motion Neuro: Denies: headache(s), numbness in extremities, weakness in extremities, sensory changes, lack of coordination, difficulty walking, frequent falls, dizziness, vertigo, confusion, Slurred speech present, difficulty communicating thoughts or seizure-like activity Psych: Denies: anxiety, depression, mood swings, panic attacks, hopelessness or irritability Endo: Denies: polyuria, polydipsia, tired all the time, cold intolerance, excessive sweating, flushing or heat intolerance Dariel/Lymph: Denies: easy bruising or easy bleeding All/Imm: Denies: tongue swelling, facial swelling or acute wheezing Medications/Allergies Home Medications Medication Instructions Recorded Confirmed Last Taken Type acetaminophen 500 mg tablet 500 mg PO Q6H PRN Pain #100 tabs 02/21/22 11/02/22 Unknown Rx diclofenac sodium 1 % topical gel See Rx Instructions .Route 02/21/22 11/02/22 Unknown Rx .COMPLEX #100 grams amlodipine 10 mg tablet 10 mg PO QAM #30 tabs 08/15/22 11/02/22 11/01/22 Rx lorazepam 0.5 mg tablet 0.5 mg PO TID PRN anxiety 30 days 08/18/22 11/02/22 11/01/22 Rx #90 tabs escitalopram oxalate 10 mg tablet 10 mg PO DAILY mental health #30 10/14/22 11/02/22 11/01/22 Rx tabs dicyclomine 10 mg capsule 10 mg PO TID PRN cramps #90 caps 10/29/22 11/02/22 11/01/22 Rx docusate sodium 250 mg capsule 250 mg PO DAILY PRN stool softener 10/29/22 11/02/22 11/01/22 Rx #30 caps ondansetron HCl 4 mg tablet 4 mg PO Q6H PRN Nausea And 10/29/22 11/02/22 11/01/22 Rx Vomiting #30 tabs pantoprazole 40 mg tablet,delayed 40 mg PO DAILY #90 tabs 10/29/22 11/02/22 11/01/22 Rx release oxycodone-acetaminophen 2.5 mg-325 1 tab PO Q8H #10 tabs 11/01/22 11/02/22 Unknown Rx mg tablet (Percocet) Allergies Allergy/AdvReac Type Severity Reaction Status Date / Time prochlorperazine Allergy Intermediate ADR-Irritab Verified 11/01/22 22:50 [From Compazine] le compazine Allergy makes her Uncoded 11/01/22 22:50 want to run Current Medications Generic Name Dose Route Start Last Admin Trade Name Freq PRN Reason Stop Dose Admin Amlodipine Besylate 10 mg 11/03/22 06:00 11/03/22 05:45 Amlodipine 10 Mg Tablet PO 10 mg QAM LOC Administration Escitalopram Oxalate 10 mg 11/02/22 10:07 11/03/22 07:54 Escitalopram 10 Mg Tablet PO 10 mg DAILY LOC Administration Heparin Sodium (Porcine) 5,000 unit 11/02/22 10:30 11/03/22 10:09 Heparin 5,000 Unit/Ml Inj 1 Ml SUBCUT Not Given Q12H LOC Piperacillin Sod/Tazobactam 50 mls @ 12.5 mls/hr 11/02/22 12:30 11/03/22 12:30 Sod 3.375 gm/ Sodium Chloride IV 12.5 mls/hr Q8H LOC Administration Protocol Vancomycin HCl 1,000 mg/ 250 mls @ 250 mls/hr 11/02/22 17:00 11/03/22 05:20 Sodium Chloride IV Infused Q12H [facility] Infusion Protocol Lorazepam 0.5 mg 11/02/22 10:07 11/02/22 10:58 Lorazepam 0.5 Mg Tablet PO 0.5 mg TID PRN Administration anxiety Morphine Sulfate 1 mg 11/02/22 11:37 11/03/22 12:56 Morphine 4 Mg/Ml Sdv 1 Ml IVP 1 mg Q4H PRN Administration SEVERE PAIN Ondansetron HCl 4 mg 11/02/22 10:07 11/03/22 10:26 Ondansetron 2 Mg/Ml Sdv 2 Ml IVP 4 mg Q8H PRN Administration vomiting, or N/V if npo Pantoprazole Sodium 40 mg 11/02/22 10:07 11/03/22 07:[address] 40 Mg Tablet PO 40 mg DAILY LOC Administration Tramadol HCl 50 mg 11/02/22 11:27 11/03/22 10:07 Tramadol 50 Mg Tablet PO 50 mg Q6H PRN Administration MODERATE PAIN PFSH Acute PFSH: Medical History Chronic neck pain Chronic right shoulder pain Cirrhosis of liver History of past hepatitis C that was treated Constipation Degenerative disk disease Depression Diverticulosis of colon Encounter for chronic pain management Generalized anxiety disorder Herniation of left side of L4-L5 intervertebral disc History of 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 infection HTN (hypertension) Opioid contract exists Surgical History History of neck surgery S/P TIPS (transjugular intrahepatic portosystemic shunt) Family History Mother Heart problem Brother Heart problem Social History Smoking and tobacco status: never smoked Second hand smoke exposure: Yes Smoking risk assessment/counseling performed?: No Alcohol intake: never Desire information about alcohol rehabilitation?: No Counseling given: No Substance/Drug Use: never Desire information about substance/drug rehabilitation?: No Counseling given: No Dietary Habits: Current diet type/program: regular Caffeine: Yes Caffeine intake frequency: coffee Exercise: What type of physical activity do you participate in?: walking Physical activity functional status: assisted ambulation (USES CANE AT TIMES) Vitals/I&O/Wt Last Vital Signs Temp 98.5 F 11/03/22 07:50 Pulse 68 11/03/22 07:50 Resp 18 11/03/22 12:56 BP 144/73 11/03/22 07:50 Pulse Ox 96 11/03/22 08:15 O2 Del Method Room Air 11/03/22 08:15 11/02/22 11/03/22 11/03/22 22:59 06:59 14:59 Intake Total 1020 / 1430 300 / 1730 770 / 770 Balance 1020 / 1430 300 / 1730 770 / 770 Weight last 48 hrs Weight 145 lb Physical Exam Const: COMMON NORMALS: no acute distress, average body habitus, patient oriented x3 and alert GENERAL APPEARANCE: cooperative and comfortable ORIENTATION/CONSCIOUSNESS: Yes awake HENMT: COMMON NORMALS: normocephalic and atraumatic HEAD & SCALP: normocephalic and atraumatic Eye: GENERAL EYE: appearance normal, both eyes and all related structures Chest: COMMONS NORMALS: normal inspection of the chest Resp: COMMON NORMALS: normal respiratory effort EFFORT & INSPECTION: Yes able to speak in complete sentences and Yes symmetric chest movement Extremity: RIGHT UPPER EXTREMITY: Yes elbow joint (There is erythema about the elbow joint, but no olecranon bursal fluid) Right elbow: Yes inspection, Yes palpation (Incision is along the cubital fossa.), Yes ROM (Limited secondary to pain) and Yes neurovascular exam (Intact distally) Neuro: COMMON NORMALS: patient oriented x3 SENSORIUM/ORIENTATION: Yes alert Psych: COMMON NORMALS: mental status grossly normal APPEARANCE: Yes grossly normal ATTITUDE: Yes calm and Yes engaged ATTENTION/CONCENTRATION: Yes attention grossly intact Skin: COMMON NORMALS: no rashes or lesions noted GENERAL SKIN EXAM: no rashes or lesions noted Data 11/03/22 04:46 11/03/22 04:46 Micro: Microbiology 11/02/22 08:00 Blood Culture - Preliminary Blood NEGATIVE TO DATE Other CT: My impression: CT of the right elbow was obtained. Findings on the CT included no acute fracture or dislocation. There is mild degenerative osteoarthritis, but there is no rim-enhancing lesion consistent with abscess. On the CT scan there is noted to be posterior fluid as well as anterior fluid in the antecubital fossa. A&P Assessment and plan (1) Postoperative wound cellulitis: Patient was admitted following deep biopsy in the antecubital fossa of what is presumed to be a basal cell carcinoma. She was placed on IV antibiotic. Follow-up studies demonstrated no evidence of abscess in the soft tissues. There was initially fluid anteriorly and posteriorly consistent with edema but no actual abscess. Upon physical examination, the patient did not have any fluid posteriorly. Recommendation is to continue IV antibiotics with no need for aspiration or other aggressive treatment at this time. (2) Cellulitis: (3) Olecranon bursitis of right elbow: Coding Level of Care Code Acute Code for [facility] Diagnoses Postoperative wound cellulitis T81.49XA Cellulitis L03.90 Olecranon bursitis of right elbow M70.21
--- NOTE | 2022-11-03 14:34 | PM.PN ---
Subjective Subjective: Persistent erythema, tenderness around the proximal right forearm, extending up the distal tricep posteriorly. No drainage. Pain on bending of the elbow. She is elevating it. Vitals/I&O/Wt Last Vital Signs Temp 98.5 F 11/03/22 12:00 Pulse 72 11/03/22 12:00 Resp 18 11/03/22 12:56 BP 131/84 11/03/22 12:00 Pulse Ox 98 11/03/22 12:00 O2 Del Method Room Air 11/03/22 12:00 11/02/22 11/03/22 11/03/22 22:59 06:59 14:59 Intake Total 1020 / 1430 300 / 1730 770 / 770 Balance 1020 / 1430 300 / 1730 770 / 770 Weight last 48 hrs Weight 65.771 kg Physical Exam Const: COMMON NORMALS: patient oriented x3 and alert GENERAL APPEARANCE: cooperative ORIENTATION/CONSCIOUSNESS: Yes awake HENMT: COMMON NORMALS: oropharynx normal Neck/C-Spine: COMMON NORMALS: no JVD Resp: COMMON NORMALS: normal respiratory effort and clear to auscultation bilaterally AUSCULTATION: clear to auscultation bilaterally Cardio: COMMON NORMALS: no JVD, regular rhythm, S1 normal heart sound present, S2 normal heart sound present and No murmurs present (Cardio) RHYTHM: regular rhythm HEART SOUNDS: S1 normal heart sound present and S2 normal heart sound present GI: COMMON NORMALS: Normal to inspection, nondistended, normoactive bowel sounds present, Soft to palpation and non-tender PALPATION: Yes Soft to palpation Extremity: COMMON NORMALS: no pedal edema OTHER: Elevates RUE on pillow. No proximal or distal edema. Neuro: COMMON NORMALS: patient oriented x3 and moves all extremities SENSORIUM/ORIENTATION: Yes alert Skin: OTHER: Erythema, induration of skin of proximal forearm, distal right upper arm, around the elbow, coming upward posterior medially. Tender to touch. No drainage. No fluctuance. Pain on elbow PROM. Data 11/03/22 04:46 11/03/22 04:46 Micro: Microbiology 11/02/22 08:00 Blood Culture - Preliminary Blood NEGATIVE TO DATE A&P Assessment and plan (1) Postoperative wound cellulitis: Erythema, tenderness to touch, pain with moving of the R elbow cellulitis, additionally noted possible olecranon bursitis. Appreciate orthopedic assessment regarding the latter. At this time continue IV antibiotics with Vanco and Zosyn. Additionally appreciate general surgery consultation with regards to remaining sutures. Documentation reviewed. Currently no purulence noted. No abscess on contrast CT study. Has gotten antibiotics so far only since yesterday. Pending reassessment. At the site of resection of a basal cell carcinoma done on 10/29. So far remains afebrile, leukocytosis on 11/01 has resolved. Blood cultures so far negative, reviewed prelim cultures 11/01 and 11/02. Continue elbow elevation. Continues to require IV pain medication. Recommendations appreciated, pain control escalated to 1 mg IV Dilaudid for severe breakthrough pain. [place]. Follow-up CBC. Vitals. (2) Olecranon bursitis of right elbow: Possible septic bursitis, orthopedic service consulted, appreciate assessment. Continue IV antibiotics. (3) Basal cell carcinoma (BCC): Status post excision 10/29 (4) HTN (hypertension): Goal blood pressure less than 140/90 mmHg. Continue with home dose of amlodipine. Plan Cardiac diet. Heparin 5000 every 12 hourly for DVT prophylaxis Protonix for PUD prophylaxis. Attestations Medical Necessity Statement*: Continue admission for assessment management of cellulitis, olecranon bursitis, possible septic bursitis following BCC excision. Diagnoses Postoperative wound cellulitis T81.49XA Olecranon bursitis of right elbow M70.21 Basal cell carcinoma (BCC) C44.91 HTN (hypertension) I10
--- NOTE | 2022-11-03 14:50 | P.CONIM_ITS ---
Providers/Reason For Consult Consulting Physician/Specialty*: Dr. Mehdi Brooks, DO/General surgery Reason for Consult*: Cellulitis right upper extremity Attending Physician: Luis Alberto Smith Primary Care Provider: Navin Horton MD History of Present Illness History of Present Illness Stella Covarrubias is a 62 year old female who presented to the hospital 4 days status post excision of basal cell carcinoma of the right antecubital fossa. Pathology has come back as nodular basal cell carcinoma negative margins. She reports that the day after the excision she started having pain swelling and erythema at the site. She is unable to extend her forearm at the elbow on the right side. Palpation and movement make the pain worse. Nothing has made the pain better. CT does not show an abscess. Review of Systems General: Reports: 10 or more systems reviewed and unremarkable except in HPI and below Medications/Allergies Home Medications Medication Instructions Recorded Confirmed Last Taken Type acetaminophen 500 mg tablet 500 mg PO Q6H PRN Pain #100 tabs 02/21/22 11/02/22 Unknown Rx diclofenac sodium 1 % topical gel See Rx Instructions .Route 02/21/22 11/02/22 Unknown Rx .COMPLEX #100 grams amlodipine 10 mg tablet 10 mg PO QAM #30 tabs 08/15/22 11/02/22 11/01/22 Rx lorazepam 0.5 mg tablet 0.5 mg PO TID PRN anxiety 30 days 08/18/22 11/02/22 11/01/22 Rx #90 tabs escitalopram oxalate 10 mg tablet 10 mg PO DAILY mental health #30 10/14/22 11/02/22 11/01/22 Rx tabs dicyclomine 10 mg capsule 10 mg PO TID PRN cramps #90 caps 10/29/22 11/02/22 11/01/22 Rx docusate sodium 250 mg capsule 250 mg PO DAILY PRN stool softener 10/29/22 11/02/22 11/01/22 Rx #30 caps ondansetron HCl 4 mg tablet 4 mg PO Q6H PRN Nausea And 10/29/22 11/02/22 11/01/22 Rx Vomiting #30 tabs pantoprazole 40 mg tablet,delayed 40 mg PO DAILY #90 tabs 10/29/22 11/02/22 11/01/22 Rx release oxycodone-acetaminophen 2.5 mg-325 1 tab PO Q8H #10 tabs 11/01/22 11/02/22 Unknown Rx mg tablet (Percocet) Allergies Allergy/AdvReac Type Severity Reaction Status Date / Time prochlorperazine Allergy Intermediate ADR-Irritab Verified 11/01/22 22:50 [From Compazine] le compazine Allergy makes her Uncoded 11/01/22 22:50 want to run Current Medications Generic Name Dose Route Start Last Admin Trade Name Freq PRN Reason Stop Dose Admin Amlodipine Besylate 10 mg 11/03/22 06:00 11/03/22 05:45 Amlodipine 10 Mg Tablet PO 10 mg QAM LOC Administration Escitalopram Oxalate 10 mg 11/02/22 10:07 11/03/22 07:54 Escitalopram 10 Mg Tablet PO 10 mg DAILY LOC Administration Heparin Sodium (Porcine) 5,000 unit 11/02/22 10:30 11/03/22 10:09 Heparin 5,000 Unit/Ml Inj 1 Ml SUBCUT Not Given Q12H LOC Piperacillin Sod/Tazobactam 50 mls @ 12.5 mls/hr 11/02/22 12:30 11/03/22 12:30 Sod 3.375 gm/ Sodium Chloride IV 12.5 mls/hr Q8H LOC Administration Protocol Vancomycin HCl 1,000 mg/ 250 mls @ 250 mls/hr 11/02/22 17:00 11/03/22 05:20 Sodium Chloride IV Infused Q12H LOC Infusion Protocol Lorazepam 0.5 mg 11/02/22 10:07 11/02/22 10:58 Lorazepam 0.5 Mg Tablet PO 0.5 mg TID PRN Administration anxiety Ondansetron HCl 4 mg 11/02/22 10:07 11/03/22 10:26 Ondansetron 2 Mg/Ml Sdv 2 Ml IVP 4 mg Q8H PRN Administration vomiting, or N/V if npo Pantoprazole Sodium 40 mg 11/02/22 10:07 11/03/22 07:[address] 40 Mg Tablet PO 40 mg DAILY LOC Administration PFSH Acute PFSH: Medical History Chronic neck pain Chronic right shoulder pain Cirrhosis of liver History of past hepatitis C that was treated Constipation Degenerative disk disease Depression Diverticulosis of colon Encounter for chronic pain management Generalized anxiety disorder Herniation of left side of L4-L5 intervertebral disc History of 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 infection HTN (hypertension) Opioid contract exists Surgical History History of neck surgery S/P TIPS (transjugular intrahepatic portosystemic shunt) Family History Mother Heart problem Brother Heart problem Social History Smoking and tobacco status: never smoked Second hand smoke exposure: Yes Smoking risk assessment/counseling performed?: No Alcohol intake: never Desire information about alcohol rehabilitation?: No Counseling given: No Substance/Drug Use: never Desire information about substance/drug rehabilitation?: No Counseling given: No Vitals/I&O/Wt Last Vital Signs Temp 98.5 F 11/03/22 12:00 Pulse 72 11/03/22 12:00 Resp 18 11/03/22 12:56 BP 131/84 11/03/22 12:00 Pulse Ox 98 11/03/22 12:00 O2 Del Method Room Air 11/03/22 12:00 11/02/22 11/03/22 11/03/22 22:59 06:59 14:59 Intake Total 1020 / 1430 300 / 1730 770 / 770 Balance 1020 / 1430 300 / 1730 770 / 770 Weight last 48 hrs Weight 145 lb Physical Exam Narrative: General : Patient is well developed , no acute distress, oriented x3 Head : Normal cephalic, a-traumatic. Ears : Pinnae and external canal are normal. Hearing is normal. Eyes : PERRLA, Sclera and injection are normal. No conjunctival discharge. Nose : Mucous membranes are without erythema. Throat : buccal mucosa is normal, gums are without significant recession or hype rtrophy. Lungs : Equal chest rise bilaterally, no use of accessory muscles, trachea is midline. Cor : Rate and rhythm are normal. Abdomen : Soft, ND, NT, no g/r/m Extremities : Cellulitis of the right antecubital fossa, cellulitis has not extended past the nurses last circling, no discrete abscess palpated, non-tender to palpation of calves. Upper extremities are normal bilaterally. Back : non-tender to palpation, no CVA tenderness. Neuro : CN II - XII intact, Upper and lower extremities have equal and full strength Data 11/03/22 04:46 11/03/22 04:46 Micro: Microbiology 11/02/22 08:00 Blood Culture - Preliminary Blood NEGATIVE TO DATE A&P Assessment and plan (1) Cellulitis: Plan Vancomycin Pain control We will have to give 24 hours of IV antibiotics and reassess tomorrow once the edema has reduced and extension has increased. She likely will not need any surgical intervention from general surgery Medical management per hospitalist Coding Level of Care Code 64197 Diagnoses Cellulitis L03.90
[2022-11-03] MEDS: HYDROmorphone 1 mg/mL INJ 1 mL IVP ×2 (15:30→19:35)
[2022-11-03] MEDS: HYDROcodone-acetaminophen 7.5-325 mg Tablet 1 TAB PO (22:15)
[2022-11-04] VITALS (11 sets, daily range): BP systolic 124–137; BP diastolic 77–83; PULSE 64–74; RESP 16–18; TEMP 36.6–37.2; O2SAT 94–97
[2022-11-04] MEDS: ondansetron 2 mg/ML SDV 2 mL 4 MG IVP ×5 (00:41→23:02)
[2022-11-04] MEDS: HYDROcodone-acetaminophen 7.5-325 mg Tablet 1 TAB PO ×2 (02:24→06:29)
[2022-11-04] MEDS: piperacillin-tazobactam 3.375 GM in sodium chloride 0.9% (plus) 50 ML IV (03:44)
[2022-11-04 04:26] LABS: Basophils % 0.6 %; Eosinophils # 0.2 10^3/uL (0.0-0.8); Eosinophils % 3.6 %; Hematocrit 36.3 % (37.0-47.0); Mean Corpuscular HGB Conc 33.1 g/dL (30.0-36.0); Mean Corpuscular Hemoglobin 27.2 pg (28.0-34.0); Mean Corpuscular Volume 82.3 fl (81-99); Mean Platelet Volume 11.2 fL (7.4-10.4); Monocytes # 0.7 10^3/uL (0.2-0.9); Monocytes % 13.2 %; Neutrophils # 3.12 10^3/uL (1.8-7.7); Neutrophils % 62.2 %; Nucleated Red Blood Cells % 0 %; Platelet Count 137 10^3/cmm (130-400); Red Blood Count 4.41 10^6/uL (4.1-5.3)
[2022-11-04 04:38] LABS: Anion Gap 15.5 (5-19); Blood Urea Nitrogen 10 mg/dL (8-23); Calcium 8.7 mg/dL (8.5-10.5); Carbon Dioxide 24 mmol/L (22-29); Chloride 104 mmol/L (98-107); Glomerular Filtration Rate 50.2 mL/min (90-130); Glucose 111 mg/dL (65-115); Osmolality Calculated 290 mOsm/kg (285-295); Potassium 3.5 mmol/L (3.5-5.1); Sodium 140 mmol/L (136-145); Vancomycin Trough 15.3 ug/mL (10-15)
[2022-11-04] MEDS: vancomycin 1,000 MG in sodium chloride 0.9% 250 ML 250 MG IV ×2 (05:05→22:38)
[2022-11-04] MEDS: amlodipine 10 mg Tablet PO (06:29)
[2022-11-04] MEDS: pantoprazole DR 40 mg Tablet PO (08:04)
[2022-11-04] MEDS: escitalopram 10 mg Tablet PO (08:04)
[2022-11-04] MEDS: HYDROmorphone 1 mg/mL INJ 1 mL IVP ×5 (09:27→23:00)
[2022-11-04] MEDS: cefepime 2,000 MG in sodium chloride 0.9% (plus) 50 ML 100 MG IV (09:27)
--- NOTE | 2022-11-04 10:02 | PC.CHAP ---
Pastoral Care Encounter/Spiritual Assessment Type of Contact [] Declined field consultant visit [] Patient/Family/Request visit [] Outpatient visit [] Follow-up visit [] Physician referral [] Code/Alert [x] Routine visit [] Staff referral [] Actively dying [] Patient sleeping [] Family support [] [] Out of room [] Palliative care [] [] Receiving care in room [] Pre-surgical visit [] Trauma [] Long length of stay [] ICU visit [] Other: Relational/Emotional Strength [x] Patient feels connected with others/family/visitors/staff [] Distress [] Loneliness/isolation [] Abandonment Spirituality of Patient [x] Person of [place] [] Attends Holiness of their [place] [x] Believes in Prayer [] Reads Bible or Samaritan materials [] There are Spiritual issues to be addressed Concept Artist 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 [x] Prayer [] Active listening [] Non-anxious presence [x] Spiritual/emotional support [] Crisis/trauma care [] Spiritual counseling [] Bereavement support [] Provided bereavement packet [] Provided Bible/devotional materials [] Provided toy/stuffed animal, coloring book to patient or family member [] Provided Communion [] Anointing/[place] [] Salvation [x] Completed spiritual assessment [] Other: Impact on Illness or Injury [] Angry [] Fearful [] Anxious [] Often cries [] Exhaustion [] Unable to work [] Unable to attend religion [] Unable to walk/stand [] Unable to read [] Unable to drive [] Unable to eat/drink [] Unable to sleep [] Unable to be with family [] Patient intubated [] Other: Summary Time spent with patient 5 min
--- NOTE | 2022-11-04 10:50 | PC.PHAR ---
PHARMACY TO DOSE CONSULT - VANCOMYCIN AND ZOSYN With the patient's decrease in CrCl, a re-calculation of her vancomycin dose shows we should decrease her frequency to every 18 hours keeping the 1,000mg dose. This shows a predicted peak of 35.4 and a trough of 16.20. If she remains stable at her current renal function, we will draw a new trough prior to the 4th dose at this new dose and frequency. With her decrease in CrCl, she is also indicated for a reduction in her cefepime dose from 2 grams every 12 hours to 2 grams every 24 hours. Pharmacy will continue to monitor this patient's renal function and make adjustments as required. Please let us know if there is anything else we can do in the care of this patient. Thanks, Cory Vieyra, Pharm.D
--- NOTE | 2022-11-04 13:52 | PM.PN ---
Subjective Subjective: Per the patient, the incision for the biopsy which was performed in her primary care's office started to drain last night. Early this afternoon, drainage was increasing. Discussion was undertaken with the patient and plan was made for irrigation and debridement Vitals/I&O/Wt Last Vital Signs Temp 97.9 F 11/04/22 12:00 Pulse 68 11/04/22 12:00 Resp 18 11/04/22 12:49 BP 124/77 11/04/22 12:00 Pulse Ox 97 11/04/22 12:00 O2 Del Method Room Air 11/04/22 08:00 11/03/22 11/04/22 11/04/22 22:59 06:59 14:59 Intake Total 780 / 1550 317.292 / 1867.292 322.708 / 322.708 Balance 780 / 1550 317.292 / 1867.292 322.708 / 322.708 Weight last 48 hrs Weight 155 lb Physical Exam Const: COMMON NORMALS: no acute distress, average body habitus, patient oriented x3 and alert GENERAL APPEARANCE: cooperative and comfortable ORIENTATION/CONSCIOUSNESS: Yes awake HENMT: COMMON NORMALS: normocephalic and atraumatic HEAD & SCALP: normocephalic and atraumatic Eye: GENERAL EYE: appearance normal, both eyes and all related structures Chest: COMMONS NORMALS: normal inspection of the chest Resp: COMMON NORMALS: normal respiratory effort EFFORT & INSPECTION: Yes able to speak in complete sentences and Yes symmetric chest movement Extremity: RIGHT UPPER EXTREMITY: Yes elbow joint (Erythema has improved, but drainage is present) Right elbow: Yes palpation (Tender about the incision primarily.), Yes ROM (72 approximately 100 degrees.) and Yes neurovascular exam (Intact distally.) Neuro: COMMON NORMALS: patient oriented x3 SENSORIUM/ORIENTATION: Yes alert Psych: COMMON NORMALS: mental status grossly normal APPEARANCE: Yes grossly normal ATTITUDE: Yes calm and Yes engaged ATTENTION/CONCENTRATION: Yes attention grossly intact Skin: COMMON NORMALS: no rashes or lesions noted GENERAL SKIN EXAM: no rashes or lesions noted Data 11/04/22 04:08 11/04/22 04:08 A&P Assessment and plan (1) Postoperative wound cellulitis: Patient was admitted following deep biopsy in the antecubital fossa of what is presumed to be a basal cell carcinoma, and the biopsy was performed at her primary care's office. She was placed on IV antibiotic upon admission to the hospital. Follow-up studies demonstrated no evidence of abscess in the soft tissues. Today, the erythema about the elbow appears to have improved, and there is significant decrease in the cellulitis present. Of concern, the incision has started to drain. It is very tender around the incision as well. Discussion was undertaken with the patient regarding possible benefits of irrigation and debridement with potentially leaving the wound open. She understands and agrees to the surgical procedure. She has eaten today and drank. She states she is having difficulty eating secondary she believes to the antibiotics. She also notes that she has developed some kidney issues which are being worked up by the hospitalist team. According to the patient, she was taking 800 mg 2 tablets 4 times a day. She is cautioned against anti-inflammatories at this point in time. Plan will be for surgical intervention at noon tomorrow. Risks and complications are discussed with the patient. Consents will be signed. Questions were answered. (2) Cellulitis: (3) Olecranon bursitis of right elbow: Attestations Medical Necessity Statement*: Patient remains in hospital for ongoing antibiotic therapies. Coding Level of Care Code Acute Code for [facility] Diagnoses Postoperative wound cellulitis T81.49XA Cellulitis L03.90 Olecranon bursitis of right elbow M70.21
--- NOTE | 2022-11-04 17:47 | P.PN_ITS ---
Subjective Subjective: Pain and erythema have improved slightly since yesterday Vitals/I&O/Wt Last Vital Signs Temp 98.1 F 11/05/22 15:00 Pulse 72 11/05/22 16:00 Resp 16 11/05/22 16:37 BP 141/77 11/05/22 16:00 Pulse Ox 92 11/05/22 16:37 O2 Del Method Room Air 11/05/22 13:47 O2 Flow Rate 8 11/05/22 13:20 11/05/22 11/05/22 11/05/22 06:59 14:59 22:59 Intake Total 250 / 832.708 100 / 100 Output Total 10 Balance 250 / 832.708 90 / 90 Weight last 48 hrs Weight 146 lb 9 oz Physical Exam Narrative: General: No acute distress, awake alert and oriented x3 Extremities: Erythema and fluctuation to right antecubital fossa Data 11/05/22 04:50 11/05/22 04:50 A&P Assessment and plan (1) Cellulitis: Plan Orthopedic surgery is taking her to the operating room tomorrow Medical management per hospitalist General surgery will sign off. Please reconsult if necessary Attestations Medical Necessity Statement*: Per primary Coding Level of Care Code Acute Code for [facility] Diagnoses Cellulitis L03.90
--- NOTE | 2022-11-04 20:43 | P.PN_ITS ---
Subjective Subjective: She is not feeling very well today. She is nauseated. Not vomiting. Had a loose stool. Some improvement in erythema around the right forearm/elbow/distal upper arm. But still with some persistence of swelling and pain with range of motion, although range is improving. Vitals/I&O/Wt Last Vital Signs Temp 99.0 F 11/04/22 19:55 Pulse 69 11/04/22 19:55 Resp 16 11/04/22 19:55 BP 127/81 11/04/22 19:55 Pulse Ox 95 11/04/22 19:55 O2 Del Method Room Air 11/04/22 19:55 11/04/22 11/04/22 11/04/22 06:59 14:59 22:59 Intake Total 317.292 / 1867.292 322.708 / 322.708 260 / 582.708 Balance 317.292 / 1867.292 322.708 / 322.708 260 / 582.708 Weight last 48 hrs Weight 70.307 kg Physical Exam Const: COMMON NORMALS: patient oriented x3 and alert GENERAL APPEARANCE: cooperative ORIENTATION/CONSCIOUSNESS: Yes awake HENMT: COMMON NORMALS: oropharynx normal Neck/C-Spine: COMMON NORMALS: no JVD Resp: COMMON NORMALS: normal respiratory effort and clear to auscultation bilaterally AUSCULTATION: clear to auscultation bilaterally Cardio: COMMON NORMALS: no JVD, regular rhythm, S1 normal heart sound present, S2 normal heart sound present and No murmurs present (Cardio) RHYTHM: regular rhythm HEART SOUNDS: S1 normal heart sound present and S2 normal heart sound present GI: COMMON NORMALS: Normal to inspection, nondistended, normoactive bowel sounds present, Soft to palpation and non-tender PALPATION: Yes Soft to palpation Extremity: COMMON NORMALS: no joint enlargement and no pedal edema OTHER: Elevates RUE on pillow. No proximal or distal edema. Neuro: COMMON NORMALS: patient oriented x3 and moves all extremities SENSORIUM/ORIENTATION: Yes alert Skin: COMMON NORMALS: no rashes or lesions noted GENERAL SKIN EXAM: no rashes or lesions noted OTHER: Improvement in amount of erythema, induration of skin of distal upper arm, proximal forearm, distal right upper arm, some improvement in swelling. Persistent of swelling in the proximal forearm anteriorly. Tender to touch. Data 11/04/22 04:08 06/20/23 04:08 A&P Assessment and plan (1) Postoperative wound cellulitis: Improvement in erythema and swelling overall around the proximal forearm, distal upper arm around the elbow. As per discussion with orthopedics found to have drainage from the incision site. As such recommendation is that she would benefit from debridement and irrigation possibly leaving the wound open to heal by secondary intention. With further discussion with her this would be done jarrod amna. As per discussion no drainage required of the olecranon bursa at this time. Continue IV antibiotics. We will request wound culture. Blood culture reviewed, so far without growth. Continue IV antibiotics in the meantime. At this time continue IV antibiotics with Vanco and Zosyn. Complicated infection with cellulitis at the site of resection of a basal cell carcinoma done on 10/29, currently started drainage. So far remains afebrile, leukocytosis on 11/01 has resolved. Blood cultures so far negative, reviewed prelim cultures 11/01 and 11/02. Continue elbow elevation. Still continues to require IV pain medication. [place]. Follow-up CBC requested. Vitals. (2) Olecranon bursitis of right elbow: Possible septic bursitis, orthopedic service consulted, appreciate assessment. Continue IV antibiotics. (3) Basal cell carcinoma (BCC): Status post excision 10/29 (4) HTN (hypertension): Goal blood pressure less than 140/90 mmHg. Continue with home dose of amlodipine. Plan FABIAN: Discussed with her creatinine up to 1.1, mild FABIAN. Could be a number of causes, including she states has been taking ibuprofen at home. Asked her to discontinue NSAIDs. Additionally noted to have diclofenac gel, should discontinue as well. Discussed with her not to resume NSAIDs at this time until renal function is stable. Additionally received contrast CT on presentation, discussed cannot exclude contrast-induced nephropathy. Additionally in case any contribution from possible toxicity of antibiotics vancomycin and Zosyn, changed from Zosyn to cefepime. Nausea: Increased frequency of Zofran Loose stool: Discussed with her possibility of adverse effect from antibiotic, check C. difficile. Cardiac diet. Heparin 5000 every 12 hourly for DVT prophylaxis Protonix for PUD prophylaxis. Attestations Medical Necessity Statement*: Continue admission for assessment management of cellulitis, wound infection of right forearm, complicated by suspected olecranon bursitis, currently complicated by drainage. Diagnoses Postoperative wound cellulitis T81.49XA Olecranon bursitis of right elbow M70.21 Basal cell carcinoma (BCC) C44.91 HTN (hypertension) I10
[2022-11-04] MEDS: LORazepam 0.5 mg Tablet PO (22:59)
[2022-11-05] VITALS (20 sets, daily range): BP systolic 113–176; BP diastolic 62–108; PULSE 58–83; RESP 15–18; TEMP 36.1–37.3; O2SAT 92–99; BMI 25.1
[2022-11-05 05:00] LABS: Basophils % 0.4 %; Eosinophils # 0.2 10^3/uL (0.0-0.8); Eosinophils % 3.6 %; Hematocrit 34.6 % (37.0-47.0); Hemoglobin 11.5 g/dL (11.5-15.3); Lymphocytes # 0.9 10^3/uL (0.8-4.8); Mean Corpuscular HGB Conc 33.2 g/dL (30.0-36.0); Mean Corpuscular Hemoglobin 27.3 pg (28.0-34.0); Mean Corpuscular Volume 82.2 fl (81-99); Mean Platelet Volume 10.3 fL (7.4-10.4); Monocytes # 0.6 10^3/uL (0.2-0.9); Monocytes % 12.7 %; Neutrophils # 2.83 10^3/uL (1.8-7.7); Neutrophils % 63.1 %; Nucleated Red Blood Cells % 0 %; Platelet Count 139 10^3/cmm (130-400); Red Blood Count 4.21 10^6/uL (4.1-5.3); Red Cell Distribution Width 13.1 % (12.1-15.1); White Blood Count 4.5 10^3/uL (4.0-10.0)
[2022-11-05] MEDS: amlodipine 10 mg Tablet PO (05:12)
[2022-11-05 05:16] LABS: Anion Gap 13.4 (5-19); Blood Urea Nitrogen 10 mg/dL (8-23); Calcium 8.9 mg/dL (8.5-10.5); Carbon Dioxide 24 mmol/L (22-29); Chloride 108 mmol/L (98-107); Glomerular Filtration Rate 26.7 mL/min (90-130); Glucose 96 mg/dL (65-115); Osmolality Calculated 293 mOsm/kg (285-295); Potassium 3.4 mmol/L (3.5-5.1); Sodium 142 mmol/L (136-145)
[2022-11-05] MEDS: ondansetron 2 mg/ML SDV 2 mL 4 MG IVP ×2 (05:47→22:54)
[2022-11-05] MEDS: HYDROmorphone 1 mg/mL INJ 1 mL IVP ×3 (05:47→22:54)
[2022-11-05] MEDS: LORazepam 0.5 mg Tablet PO ×2 (06:36→20:26)
[2022-11-05] MEDS: pantoprazole DR 40 mg Tablet PO (08:55)
[2022-11-05] MEDS: cefepime 2,000 MG in sodium chloride 0.9% (plus) 50 ML 100 MG IV (08:55)
[2022-11-05] MEDS: escitalopram 10 mg Tablet PO (08:55)
--- NOTE | 2022-11-05 11:21 | PC.NURSE ---
Patient left floor for surgery
--- NOTE | 2022-11-05 11:22 | PC.NURSE ---
Patient refused heparin this am. Patient going to surgery as well. Patient does get up and walk around in the room.
[2022-11-05] MEDS: acetaminophen 1,000 MG/100 ML PIGGYBACK 400 MG IV (11:42)
--- NOTE | 2022-11-05 12:09 | PM.MISC ---
Miscellaneous Note Purpose of Documentation: Preop visit Note: Patient is seen in the preop area. Consent is signed, questions were answered. The arm is marked as well. Confirmation of the procedure and further discussion is accomplished and documented.
--- NOTE | 2022-11-05 12:31 | P.ANESASSM_ITS ---
Pre-Anesthetic Assessment Height/Weight: Height 1.63 m Weight 66.48 kg Temp Pulse Resp BP Pulse Ox O2 Del Method 99.1 F 74 18 176/96 95 Room Air 11/05/22 11:47 11/05/22 11:47 11/05/22 11:47 11/05/22 11:47 11/05/22 11:47 11/05/22 11:47 Operation Date: 11/05/22 12:00 Proposed Procedures p Incision & Drainage AC Fosa (elbow)(Right) - Whitney Seymour MD Familial anesthetic complications: none Was Beta Kyle taken within 24 hours: N/A Was Clonidine taken within 24 hours: N/A Last intake: Intake Last Liquid Date 11/05/22 Last Liquid Time 00:00 Last Solid Date 11/04/22 Last Solid Time 21:00 Social No alcohol and No tobacco (h/o smoking) Exam alert, oriented x 3 and regular rate & rhythm Airway Submandibular: within normal limits Cervical ROM: within normal limits Mallampati: Class I Dentition: false Pulmonary Chronic Obstructive Pulmonary Disease CV/HEM Hypertension Hepatic Cirrhosis GI Gastroesophageal Reflux Disease Neuropsych Anxiety and Depression Anesthetic Plan ASA status: 3 Anesthesia: General Medications/Allergies Home Medications Medication Instructions Recorded Confirmed Last Taken Type acetaminophen 500 mg tablet 500 mg PO Q6H PRN Pain #100 tabs 02/21/22 11/02/22 Unknown Rx diclofenac sodium 1 % topical gel See Rx Instructions .Route 02/21/22 11/02/22 Unknown Rx .COMPLEX #100 grams amlodipine 10 mg tablet 10 mg PO QAM #30 tabs 08/15/22 11/02/22 11/01/22 Rx lorazepam 0.5 mg tablet 0.5 mg PO TID PRN anxiety 30 days 08/18/22 11/02/22 11/01/22 Rx #90 tabs escitalopram oxalate 10 mg tablet 10 mg PO DAILY mental health #30 10/14/22 11/02/22 11/01/22 Rx tabs dicyclomine 10 mg capsule 10 mg PO TID PRN cramps #90 caps 10/29/22 11/02/22 11/01/22 Rx docusate sodium 250 mg capsule 250 mg PO DAILY PRN stool softener 10/29/22 11/02/22 11/01/22 Rx #30 caps ondansetron HCl 4 mg tablet 4 mg PO Q6H PRN Nausea And 10/29/22 11/02/22 11/01/22 Rx Vomiting #30 tabs pantoprazole 40 mg tablet,delayed 40 mg PO DAILY #90 tabs 10/29/22 11/02/22 0 11/01/22 Rx release oxycodone-acetaminophen 2.5 mg-325 1 tab PO Q8H #10 tabs 11/01/22 11/02/22 Unknown Rx mg tablet (Percocet) Allergies Allergy/AdvReac Type Severity Reaction Status Date / Time prochlorperazine Allergy Intermediate ADR-Irritab Verified 11/01/22 22:50 [From Compazine] le compazine Allergy makes her Uncoded 11/01/22 22:50 want to run Current Medications Generic Name Dose Route Start Last Admin Trade Name Freq PRN Reason Stop Dose Admin Hydrocodone Bitart/Acetaminophen 1 tab 11/03/22 14:49 11/04/22 06:29 Hydrocodone-Acetaminophen 7.5-325 Mg Tablet PO 1 tab Q4H PRN Administration MODERATE PAIN Amlodipine Besylate 10 mg 11/03/22 06:00 11/05/22 05:12 Amlodipine 10 Mg Tablet PO 10 mg QAM LOC Administration Escitalopram Oxalate 10 mg 11/02/22 10:07 11/05/22 08:55 Escitalopram 10 Mg Tablet PO 10 mg DAILY LOC Administration Heparin Sodium (Porcine) 5,000 unit 11/02/22 10:30 11/05/22 11:22 Heparin 5,000 Unit/Ml Inj 1 Ml SUBCUT Not Given Q12H LOC Hydromorphone HCl 1 mg 11/03/22 14:49 11/05/22 05:47 Hydromorphone 1 Mg/Ml Inj 1 Ml IVP 1 mg Q3H PRN Administration SEVERE PAIN Vancomycin HCl 1,000 mg/ 250 mls @ 250 mls/hr 11/04/22 23:00 11/04/22 23:40 Sodium Chloride IV Infused Q18H [facility] Infusion Protocol Lorazepam 0.5 mg 11/02/22 10:07 11/05/22 06:36 Lorazepam 0.5 Mg Tablet PO 0.5 mg TID PRN Administration anxiety Ondansetron HCl 4 mg 11/04/22 16:41 11/05/22 05:47 Ondansetron 2 Mg/Ml Sdv 2 Ml IVP 4 mg Q6H PRN Administration vomiting, or N/V if npo Pantoprazole Sodium 40 mg 11/02/22 10:07 11/05/22 08:[address] 40 Mg Tablet PO 40 mg DAILY LOC Administration PFSH Anesthesia Medical History Chronic neck pain Chronic right shoulder pain Cirrhosis of liver History of past hepatitis C that was treated Constipation Degenerative disk disease Depression Diverticulosis of colon Encounter for chronic pain management Generalized anxiety disorder Herniation of left side of L4-L5 intervertebral disc History of 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 infection HTN (hypertension) Opioid contract exists Surgical History History of neck surgery S/P TIPS (transjugular intrahepatic portosystemic shunt) Family History Mother Heart problem Brother Heart problem Social History Smoking and tobacco status: never smoked Second hand smoke exposure: Yes Smoking risk assessment/counseling performed?: No Alcohol intake: never Desire information about alcohol rehabilitation?: No Counseling given: No Substance/Drug Use: never Desire information about substance/drug rehabilitation?: No Counseling given: No Data Anesthesia 11/05/22 04:50 11/05/22 04:50 Short CBC 11/04/22 11/05/22 Range/Units 04:08 04:50 WBC 5.0 4.5 (4.0-10.0) 10^3/uL Hgb 12.0 11.5 (11.5-15.3) g/dL Hct 36.3 L 34.6 L (37.0-47.0) % MCV 82.3 82.2 (81-99) fl Plt Count 137 139 (130-400) 10^3/cmm Neut % (Auto) 62.2 63.1 % Neut # (Auto) 3.12 2.83 (1.8-7.7) 10^3/uL BMP 11/04/22 11/05/22 04:08 04:50 Sodium 140 142 Potassium 3.5 3.4 L Chloride 104 108 H Carbon Dioxide 24 24 BUN 10 10 Creatinine 1.1 H 1.9 H Glucose 111 96 Calcium 8.7 8.9 Cardiac Studies: No Data to Display
--- NOTE | 2022-11-05 12:46 | PC.SOCIAL ---
Pg 2 IMM Explained to pt Pg 2 IMM. No questions voiced. Provided pt a copy. Initialed, dated, & timed a copy & placed in chart.
--- NOTE | 2022-11-05 13:04 | PM.OP ---
Operative Report Date of procedure: November 05, 2022 Pre-op diagnosis: Right antecubital fossa post biopsy wound infection with cellulitis Post-op diagnosis: Right antecubital fossa post biopsy wound infection with cellulitis Post-op findings: Diffuse cellulitis and fatty necrosis with purulent fluid, but no defined abscess Procedure done: Irrigation and debridement right antecubital fossa Implants: None Specimens removed/disposition: Cultures swabs and tissue sent for culture Pathology: none sent Surgeon: Whitney Seymour Relocation Associate: None Anesthesia: General (Per LMA, ASA 2) Estimated blood loss (mL): 10 Tourniquet time (min): 0 (Not utilized) IV fluids (mL): 700 Urine output (mL): 0 (No [place]) Complications: None Findings: Biopsy obtained in primary care office closed with silk both in the deep and skin layers. There was significant purulence and evidence of soft tissue necrosis. No discrete abscess. Condition: stable Disposition: PACU (Then return to floor for postoperative care and IV antibiotics) Brief History: Stella Covarrubias is a 62 year old female who presented to the emergency room with complaints of redness swelling and pain surrounding her elbow.? The patient noted that several days prior, she had a basal cell carcinoma removed by her primary care provider, Dr. Horton.? She states that the biopsy removal was very deep requiring a multilayer layered closure.? The day prior to admission.? She began to experience increased redness and swelling as well as pain to the area.? Patient presented to the emergency department had labs and was given IV clindamycin.? She was unable to fill her oral antibiotics, and her symptoms progressed so she returned in the evening for further treatment.? Patient was admitted to the hospital for definitive care. After a couple days of IV antibiotics, the patient's cellulitis improved slightly, but there was still induration and evidence of soft tissue infection. It then began draining. The patient was then scheduled for operative intervention in the form of irrigation and debridement. Procedure: The patient was brought to the operating theater. She was given a general anesthetic per LMA, ASA 2. Perioperative antibiotics were not given as the patient was on vancomycin and cefepime and on the floor. The arm was then prepped and draped with Betadine in usual fashion with the arm draped free. A surgical pause was performed. At the time, the surgical pause, we confirmed the site and side of surgery. We also confirmed the patient's identity, appropriate and timely administration of preoperative antibiotics and preoperative surgical markings. The patient's biopsy wound was opened. This was closed with interrupted silk. A deep layer was also found which was silk in a continuous fashion. This was removed as well. The wound was then explored, and there were extensions of the wound across the antecubital fossa posteriorly along the radial aspect of the elbow as well as proximally distally. These areas were manipulated and cleared of soft tissue. A rongeur was used to further clear the soft tissue. Once this was accomplished, the wound was irrigated with 6 L of normal saline utilizing pulse lavage. The first 3 L were plain and the second 3 L had 3 g of Ancef. This was irrigated uneventfully. The tissues were then palpated. Iodoform 1/4 inch packing was placed. Skin edges were freshened as well. Dressing was then placed consisting of 4 x 4's, ABD, sterile soft roll, and an [place] wrap. No tourniquet was utilized. Specimens included culture swabs and tissue for culture. There were no complications and the patient was returned to recovery room in satisfactory condition. Related Problem List Diagnoses (1) Post op infection: (2) Cellulitis: (3) Postoperative wound cellulitis: (4) Basal cell carcinoma (BCC):
[2022-11-05] MEDS: vancomycin 1,000 MG SDV 1000 MG XX (13:10)
[2022-11-05] MEDS: ceFAZolin 2,000 mg SDV 3000 MG IRRIGATION (13:10)
[2022-11-05] MEDS: fentaNYL 50 mcg/mL INJ 2mL IVP (13:30)
--- NOTE | 2022-11-05 14:09 | ANE.PACU2 ---
Inpatient post-anesthesia follow up: Airway intact: Yes Vital signs: Temperature 97.9 F Pulse Rate [Right Radial] 75 Pulse Rate 73 Respiratory Rate 16 Blood Pressure 138/62 Pulse Oximetry 92 Oxygen Delivery Me thod [ Room Air Current Rate & Del rolanda] Oxygen Delivery Me thod Room Air Oxygen Flow Rate 8 Fraction of Inspir ed Oxygen Hydration adequate: Yes Nausea and vomiting: No Pain level: 3 Mental status: Baseline
--- NOTE | 2022-11-05 14:30 | PC.NURSE ---
Patient returned from surgery at 1400
[2022-11-05] MEDS: vancomycin 1,000 MG in sodium chloride 0.9% 250 ML 250 MG IV (16:38)
[2022-11-05] MEDS: HYDROcodone-acetaminophen 7.5-325 mg Tablet 1 TAB PO (19:58)
--- NOTE | 2022-11-05 20:44 | P.PN_ITS ---
Subjective Subjective: Awaiting I&D. She is improving, improving redness, swelling around the right elbow apart from anterolateral proximal forearm. Having drainage. Diarrhea has let up. Still some nausea. Vitals/I&O/Wt Last Vital Signs Temp 98.0 F 11/05/22 19:00 Pulse 68 11/05/22 19:00 Resp 17 11/05/22 19:00 BP 157/77 11/05/22 19:00 Pulse Ox 96 11/05/22 19:00 O2 Del Method Room Air 11/05/22 19:00 O2 Flow Rate 8 11/05/22 19:43 11/05/22 11/05/22 11/05/22 06:59 14:59 22:59 Intake Total 250 / 832.708 150 / 150 250 / 400 Output Total 10 / 10 Balance 250 / 832.708 140 / 140 250 / 390 Weight last 48 hrs Weight 66.48 kg Physical Exam Const: COMMON NORMALS: patient oriented x3 and alert GENERAL APPEARANCE: cooperative ORIENTATION/CONSCIOUSNESS: Yes awake HENMT: COMMON NORMALS: oropharynx normal Neck/C-Spine: COMMON NORMALS: no JVD Resp: COMMON NORMALS: normal respiratory effort and clear to auscultation bilaterally AUSCULTATION: clear to auscultation bilaterally Cardio: COMMON NORMALS: no JVD, regular rhythm, S1 normal heart sound present, S2 normal heart sound present and No murmurs present (Cardio) RHYTHM: regular rhythm HEART SOUNDS: S1 normal heart sound present and S2 normal heart sound present GI: COMMON NORMALS: Normal to inspection, nondistended, normoactive bowel sounds present, Soft to palpation and non-tender PALPATION: Yes Soft to palpation Extremity: COMMON NORMALS: no joint enlargement and no pedal edema OTHER: Elevates RUE on pillow. No proximal or distal edema. Neuro: COMMON NORMALS: patient oriented x3 and moves all extremities S ENSORIUM/ORIENTATION: Yes alert Skin: COMMON NORMALS: no rashes or lesions noted GENERAL SKIN EXAM: no rash es or lesions noted OTHER: Near resolution in amount of erythema, induration of skin of distal upper arm, proximal forearm, distal right upper arm, some more improvement in swelling. Persistent of swelling in the proximal forearm anteriorly with small amount of purulent appearing drainage. Data 11/05/22 04:50 11/05/22 04:50 A&P Assessment and plan (1) Postoperative wound cellulitis: For I&D in OR today.Wound cultures collected, further cultures collected in OR. Orthopedic documentation reviewed. Continue IV antibiotics. Vanco and Cefepime. Afebrile. Noted no leukocytosis. Complicated infection with cellulitis at the site of resection of a basal cell carcinoma done on 10/29, currently started drainage. So far remains afebrile, leukocytosis on 11/01 has resolved. Blood cultures so far negative, reviewed prelim cultures 11/01 and 11/02. Continue elbow elevation. Still continues to require IV pain medication. [place]. Follow-up CBC requested. Vitals. Hopefully should not require IV antibiotics after discharge. Discussed with case management. (2) Olecranon bursitis of right elbow: Possible septic bursitis. Continue IV antibiotics. (3) Basal cell carcinoma (BCC): Status post excision 10/29 (4) HTN (hypertension): Goal blood pressure less than 140/90 mmHg. Continue with home dose of amlodipine. Plan FABIAN: Worsening today, creatinine up to 1.9. BUN 10. Will obtain kidney ultrasound. Monitor urine output, chemistry, electrolytes and acid-base balance at risk of progression to acute renal failure. Could be a number of causes, including she states has been taking ibuprofen at home. Asked her to discontinue NSAIDs. Additionally noted to have diclofenac gel, should discontinue as well. Discussed with her not to resume NSAIDs at this time until renal function is stable. Additionally received contrast CT on presentation, discussed cannot exclude contrast-induced nephropathy. Additionally in case any contribution from possible toxicity of antibiotics vancomycin and Zosyn, changed from Zosyn to cefepime. Pop trough noted 15.3. Discussed with pharmacy, requested pharmacy to dose vancomycin. Nausea: Increased frequency of Zofran Loose stool: Discussed with her possibility of adverse effect from antibiotic, check C. difficile. Cardiac diet. Heparin 5000 every 12 hourly for DVT prophylaxis Protonix for PUD prophylaxis. Attestations Medical Necessity Statement*: Continue admission for assessment management of cellulitis, wound infection of right forearm, complicated by suspected olecranon bursitis, currently complicated by drainage. Diagnoses Postoperative wound cellulitis T81.49XA Olecranon bursitis of right elbow M70.21 Basal cell carcinoma (BCC) C44.91 HTN (hypertension) I10
--- NOTE | 2022-11-05 20:50 | US_ITS ---
WS: [id number] RENAL ULTRASOUND URINARY BLADDER ULTRASOUND HISTORY: janet COMPARISON: 06/10/2020 CT, ultrasound 01/27/2022 TECHNIQUE: 2-D and color Doppler imaging of the kidney submitted. Right kidney: 12.6 cm x 6.3 cm x 5.9 cm. Normal size kidney. No hydronephrosis. There is a hypoechoic mass with central vascularity in the sup erior pole. Mass measures 2.9 x 2.6 cm. Left kidney: 11.4 cm x 7.6 cm x 5.5 cm. Normal echogenicity with no hydronephrosis or mass. Aorta: Normal. Urinary Bladder: Nondistended. US/US renal BI with PV bladder IMPRESSION: 1. No hydronephrosis or renal atrophy. 2. Hypoechoic mass superior pole RIGHT kidney may be a cyst. There does appear to be central vascularity suggesting this may be a solid mass. Consider follow -up imaging to exclude solid mass. CT or MRI renal mass protocol recommended. 3. Nondistended urinary bladder.
[2022-11-06] VITALS (11 sets, daily range): BP systolic 120–155; BP diastolic 65–87; PULSE 71–79; RESP 16–20; TEMP 36.1–36.8; O2SAT 95–100
[2022-11-06 04:24] LABS: Basophils % 0.3 %; Hematocrit 33.9 % (37.0-47.0); Lymphocytes % 16.2 %; Mean Corpuscular HGB Conc 32.4 g/dL (30.0-36.0); Mean Corpuscular Hemoglobin 27.2 pg (28.0-34.0); Mean Corpuscular Volume 83.9 fl (81-99); Mean Platelet Volume 11.5 fL (7.4-10.4); Monocytes # 0.6 10^3/uL (0.2-0.9); Monocytes % 9.9 %; Neutrophils # 4.66 10^3/uL (1.8-7.7); Neutrophils % 73.3 %; Nucleated Red Blood Cells % 0 %; Platelet Count 144 10^3/cmm (130-400); Red Blood Count 4.04 10^6/uL (4.1-5.3); Red Cell Distribution Width 12.9 % (12.1-15.1); White Blood Count 6.4 10^3/uL (4.0-10.0)
[2022-11-06] MEDS: HYDROmorphone 1 mg/mL INJ 1 mL IVP ×4 (04:29→19:42)
[2022-11-06 04:49] LABS: Blood Urea Nitrogen 10 mg/dL (8-23); Calcium 8.6 mg/dL (8.5-10.5); Carbon Dioxide 20 mmol/L (22-29); Chloride 108 mmol/L (98-107); Glomerular Filtration Rate 28.4 mL/min (90-130); Glucose 152 mg/dL (65-115); Osmolality Calculated 292 mOsm/kg (285-295); Sodium 140 mmol/L (136-145)
[2022-11-06 04:58] LABS: Vancomycin Trough 22.5 ug/mL (10-15)
[2022-11-06] MEDS: amlodipine 10 mg Tablet PO (05:07)
[2022-11-06] MEDS: ondansetron 2 mg/ML SDV 2 mL 4 MG IVP ×2 (09:20→19:42)
[2022-11-06] MEDS: pantoprazole DR 40 mg Tablet PO (09:48)
[2022-11-06] MEDS: escitalopram 10 mg Tablet PO (09:48)
[2022-11-06] MEDS: cefepime 1,000 MG in sodium chloride 0.9% (plus) 50 ML 100 MG IV (10:09)
[2022-11-06] MEDS: LORazepam 0.5 mg Tablet PO ×2 (13:18→22:23)
--- NOTE | 2022-11-06 14:47 | PC.PT ---
Occupational therapist states no PT needs per OT evaluation.
--- NOTE | 2022-11-06 16:31 | PM.PN ---
Subjective Subjective: Patient is seen in her room, and she appears more comfortable. Medications: Reviewed: Yes Vitals/I&O/Wt Last Vital Signs Temp 98.1 F 11/06/22 15:35 Pulse 78 11/06/22 15:35 Resp 18 11/06/22 15:35 BP 154/87 11/06/22 15:35 Pulse Ox 100 11/06/22 15:35 O2 Del Method Room Air 11/06/22 11:22 O2 Flow Rate 8 11/05/22 19:43 11/06/22 11/06/22 11/06/22 06:59 14:59 22:59 Intake Total 1010 / 1010 Balance 1010 / 1010 Weight last 48 hrs Weight 145 lb Weight 146 lb 9 oz Physical Exam Const: COMMON NORMALS: no acute distress, average body habitus, patient oriented x3 and alert GENERAL APPEARANCE: cooperative and comfortable ORIENTATION/CONSCIOUSNESS: Yes awake HENMT: COMMON NORMALS: normocephalic and atraumatic HEAD & SCALP: normocephalic and atraumatic Eye: GENERAL EYE: appearance normal, both eyes and all related structures Chest: COMMONS NORMALS: normal inspection of the chest Resp: COMMON NORMALS: normal respiratory effort EFFORT & INSPECTION: Yes able to speak in complete sentences and Yes symmetric chest movement Extremity: RIGHT UPPER EXTREMITY: Yes elbow joint (Dressing is removed. Erythema has somewhat resolved.) Right elbow: Yes palpation (Lessening pain to palpation.), Yes ROM (Less tender than prior to surgery.) and Yes neurovascular exam (Intact distally.) Neuro: COMMON NORMALS: patient oriented x3 SENSORIUM/ORIENTATION: Yes alert Psych: COMMON NORMALS: mental status grossly normal APPEARANCE: Yes grossly normal ATTITUDE: Yes calm and Yes engaged ATTENTION/CONCENTRATION: Yes attention grossly intact Skin: COMMON NORMALS: no rashes or lesions noted GENERAL SKIN EXAM: no rashes or lesions noted Data 11/06/22 04:12 11/06/22 04:12 Micro: Microbiology 11/05/22 12:37 Gram Stain - Final Elbow - #1 Wound Culture - Preliminary Coag positive Staphylococcus 11/05/22 12:37 Gram Stain - Final Elbow - #2 Tissue Culture - Preliminary Coag positive Staphylococcus 11/05/22 22:10 C.difficile Toxin B Gene (PCR) - Final Stool Routine Collection A&P Assessment and plan (1) Postoperative wound cellulitis: Patient was admitted following deep biopsy in the antecubital fossa of what is presumed to be a basal cell carcinoma, and the biopsy was performed at her primary care's office. She was placed on IV antibiotic upon admission to the hospital. Follow-up studies demonstrated no evidence of abscess in the soft tissues. The patient was taken to the operating room for formal irrigation and debridement. Cultures were obtained, and the wound was packed. Currently, it is packed with iodoform gauze. Dressing was removed, cellulitis was significantly improved. We will begin daily dressing changes. (2) Post op infection: (3) Cellulitis: (4) Basal cell carcinoma (BCC): Attestations Medical Necessity Statement*: Patient requires ongoing wound packing and IV antibiotic Coding Level of Care Code Acute Code for [facility] Diagnoses Postoperative wound cellulitis T81.49XA Post op infection T81.40XA Cellulitis L03.90 Basal cell carcinoma (BCC) C44.91
--- NOTE | 2022-11-06 19:06 | PM.PN ---
Subjective Subjective: Neighbor has been noisy. She otherwise states has not been having the past day as has been having more nausea and diarrhea has come back. She is given a stool sample. Otherwise the arm she feels is improving. Vitals/I&O/Wt Last Vital Signs Temp 98.1 F 11/06/22 15:35 Pulse 78 11/06/22 15:35 Resp 18 11/06/22 15:35 BP 154/87 11/06/22 15:35 Pulse Ox 100 11/06/22 15:35 O2 Del Method Room Air 11/06/22 11:22 O2 Flow Rate 8 11/05/22 19:43 11/06/22 11/06/22 11/06/22 06:59 14:59 22:59 Intake Total 1010 / 1010 Balance 1010 / 1010 Weight last 48 hrs Weight 65.771 kg Weight 66.48 kg Physical Exam Const: COMMON NORMALS: patient oriented x3 and alert GENERAL APPEARANCE: cooperative ORIENTATION/CONSCIOUSNESS: Yes awake HENMT: COMMON NORMALS: oropharynx normal Neck/C-Spine: COMMON NORMALS: no JVD Resp: COMMON NORMALS: normal respiratory effort and clear to auscultation bilaterally AUSCULTATION: clear to auscultation bilaterally Cardio: COMMON NORMALS: no JVD, regular rhythm, S1 normal heart sound present, S2 normal heart sound present and No murmurs present (Cardio) RHYTHM: regular rhythm HEART SOUNDS: S1 normal heart sound present and S2 normal heart sound present GI: COMMON NORMALS: Normal to inspection, nondistended, normoactive bowel sounds present, Soft to palpation and non-tender PALPATION: Yes Soft to palpation Extremity: COMMON NORMALS: no joint enlargement and no pedal edema OTHER: Dressing over R arm, no proximal redness or swelling Neuro: COMMON NORMALS: patient oriented x3 and moves all extremities SENSORIUM/ORIENTATION: Yes alert Data 11/06/22 04:12 11/06/22 04:12 Micro: Microbiology 11/05/22 12:37 Gram Stain - Final Elbow - #1 Wound Culture - Preliminary Coag positive Staphylococcus 11/05/22 12:37 Gram Stain - Final Elbow - #2 Tissue Culture - Preliminary Coag positive Staphylococcus 11/05/22 22:10 C.difficile Toxin B Gene (PCR) - Final Stool Routine Collection A&P Assessment and plan (1) Postoperative wound cellulitis: Overall her arm continues to improve. Status post I&D on 11/06. Continue cefepime, vancomycin at this time. Wound cultures as well as intraoperative cultures with coagulase positive staph. We will check MRSA PCR. Discussed with orthopedics. The wound was left open with packing, she will need referral to wound care after discharge. Anticipate 2-3 weeks oral antibiotic course after IV antibiotics. Complicated infection with cellulitis at the site of resection of a basal cell carcinoma. So far remains afebrile, leukocytosis on 11/01 has resolved. Blood cultures so far remains negative, reviewed prelim cultures 11/01 and 11/02. Continue elbow elevation. Requiring IV Dilaudid. [place]. Follow-up CBC requested. Discussed with case management during rounds. (2) Olecranon bursitis of right elbow: Possible septic bursitis. Continue IV antibiotics. (3) Basal cell carcinoma (BCC): Status post excision 10/29 (4) HTN (hypertension): Goal blood pressure less than 140/90 mmHg. Continue with home dose of amlodipine. (5) Renal mass: Ultrasound noted hypoechoic mass superior pole right kidney may be a cyst. Appears to have central vascularity may be a solid mass. Consider follow-up with imaging to exclude solid mass CT or MRI renal mass protocol. (6) FABIAN (acute kidney injury): Discussed with her that mild improvement creatinine down to 1.8. Ultrasound without hydronephrosis. Noted hypoechoic mass superior pole right kidney. Monitor urine output, chemistry, electrolytes and acid-base balance at risk of progression to acute renal failure. Could be a number of causes, including she states has been taking ibuprofen at home. Asked her to discontinue NSAIDs. Additionally noted to have diclofenac gel, should discontinue as well. Discussed with her not to resume NSAIDs at this time until renal function is stable. Additionally received contrast CT on presentation, discussed cannot exclude contrast-induced nephropathy. Additionally in case any contribution from possible toxicity of antibiotics vancomycin and Zosyn, changed from Zosyn to cefepime. Pop trough noted 15.3. Discussed with pharmacy, requested pharmacy to dose vancomycin. Plan Nausea: Zofran as needed Diarrhea: Discussed with her, suspect may be related to antibiotics. C. difficile checked, negative. Cardiac diet. Heparin 5000 every 12 hourly for DVT prophylaxis Protonix for PUD prophylaxis. Attestations Medical Necessity Statement*: Continue admission for assessment management of cellulitis, wound infection of right forearm, complicated by suspected olecranon bursitis, currently complicated by drainage. Diagnoses Postoperative wound cellulitis T81.49XA Olecranon bursitis of right elbow M70.21 Basal cell carcinoma (BCC) C44.91 HTN (hypertension) I10 Renal mass N28.89 FABIAN (acute kidney injury) N17.9
[2022-11-06] MEDS: HYDROcodone-acetaminophen 7.5-325 mg Tablet 1 TAB PO (22:25)
[2022-11-07] VITALS (9 sets, daily range): BP systolic 107–136; BP diastolic 66–79; PULSE 63–74; RESP 14–18; TEMP 36.7–37.1; O2SAT 95–98
[2022-11-07 04:18] LABS: Basophils # 0.1 10^3/uL (0.0-0.1); Basophils % 0.9 %; Eosinophils # 0.2 10^3/uL (0.0-0.8); Hematocrit 34.8 % (37.0-47.0); Hemoglobin 11.2 g/dL (11.5-15.3); Lymphocytes # 1.1 10^3/uL (0.8-4.8); Lymphocytes % 20.5 %; Mean Corpuscular HGB Conc 32.2 g/dL (30.0-36.0); Mean Corpuscular Hemoglobin 26.9 pg (28.0-34.0); Mean Corpuscular Volume 83.5 fl (81-99); Mean Platelet Volume 11.1 fL (7.4-10.4); Monocytes # 0.7 10^3/uL (0.2-0.9); Monocytes % 12.9 %; Neutrophils # 3.36 10^3/uL (1.8-7.7); Neutrophils % 61.2 %; Nucleated Red Blood Cells % 0 %; Platelet Count 151 10^3/cmm (130-400); Red Blood Count 4.17 10^6/uL (4.1-5.3); White Blood Count 5.5 10^3/uL (4.0-10.0)
[2022-11-07 04:38] LABS: Anion Gap 14.6 (5-19); Blood Urea Nitrogen 11 mg/dL (8-23); Calcium 8.9 mg/dL (8.5-10.5); Carbon Dioxide 24 mmol/L (22-29); Chloride 109 mmol/L (98-107); Glomerular Filtration Rate 35.1 mL/min (90-130); Glucose 87 mg/dL (65-115); Osmolality Calculated 297 mOsm/kg (285-295); Potassium 3.6 mmol/L (3.5-5.1); Sodium 144 mmol/L (136-145); Vancomycin Trough 15.3 ug/mL (10-15)
[2022-11-07] MEDS: amlodipine 10 mg Tablet PO (05:04)
[2022-11-07] MEDS: HYDROcodone-acetaminophen 7.5-325 mg Tablet 1 TAB PO ×4 (05:04→20:26)
[2022-11-07] MEDS: pantoprazole DR 40 mg Tablet PO (09:34)
[2022-11-07] MEDS: escitalopram 10 mg Tablet PO (09:34)
[2022-11-07] MEDS: cefepime 1,000 MG in sodium chloride 0.9% (plus) 50 ML 100 MG IV (09:34)
[2022-11-07] MEDS: ondansetron 2 mg/ML SDV 2 mL 4 MG IVP (10:41)
--- NOTE | 2022-11-07 11:15 | PC.SOCIAL ---
IMM Updated Updated pt on IMM. No questions voiced. Provided pt a copy. Initialed, dated, & timed copy in chart.
--- NOTE | 2022-11-07 12:09 | P.PN_ITS ---
Subjective Subjective: Today she is doing a bit better. She says nausea has resolved. As has diarrhea. Vitals/I&O/Wt Last Vital Signs Temp 98.4 F 11/07/22 11:46 Pulse 68 11/07/22 11:46 Resp 18 11/07/22 11:46 BP 107/66 11/07/22 11:46 Pulse Ox 96 11/07/22 11:46 O2 Del Method Room Air 11/07/22 11:46 O2 Flow Rate 8 11/05/22 19:43 11/06/22 11/07/22 11/07/22 22:59 06:59 14:59 Intake Total 290 / 290 Balance 290 / 290 Weight last 48 hrs Weight 65.771 kg Physical Exam Const: COMMON NORMALS: patient oriented x3 and alert GENERAL APPEARANCE: cooperative ORIENTATION/CONSCIOUSNESS: Yes awake HENMT: COMMON NORMALS: oropharynx normal Neck/C-Spine: COMMON NORMALS: no JVD Resp: COMMON NORMALS: normal respiratory effort and clear to auscultation bilaterally AUSCULTATION: clear to auscultation bilaterally Cardio: COMMON NORMALS: no JVD, regular rhythm, S1 normal heart sound present, S2 normal heart sound present and No murmurs present (Cardio) RHYTHM: regular rhythm HEART SOUNDS: S1 normal heart sound present and S2 normal heart sound present GI: COMMON NORMALS: Normal to inspection, nondistended, normoactive bowel sounds present, Soft to palpation and non-tender PALPATION: Yes Soft to palpation Extremity: COMMON NORMALS: no joint enlargement and no pedal edema OTHER: Dressing over R arm, no proximal redness or swelling Neuro: COMMON NORMALS: patient oriented x3 and moves all extremities SENSORIUM/ORIENTATION: Yes alert Skin: COMMON NORMALS: no rashes or lesions noted GENERAL SKIN EXAM: no rashes or lesions noted Data 11/07/22 04:00 11/07/22 04:00 Micro: Microbiology 11/02/22 08:00 Blood Culture - Final Blood NO GROWTH AFTER 5 DAYS 11/05/22 12:37 Gram Stain - Final Elbow - #1 Wound Culture - Preliminary Coag positive Staphylococcus 11/05/22 12:37 Gram Stain - Final Elbow - #2 Tissue Culture - Preliminary Coag positive Staphylococcus A&P Assessment and plan (1) Postoperative wound cellulitis: Overall her arm continues to improve. Status post I&D on 11/06. Continue cefepime, vancomycin at this time. Wound cultures as well as intraoperative cultures with coagulase positive staph. Pending request for MRSA PCR. Discussed with orthopedics -continue wound care, packing, follow-up with wound care clinic, follow-up with orthopedics in 2 weeks in the office. At some point depending on granulation there may be consideration of secondary closure, but more likely healing to complete by secondary intention. Anticipate 2-3 weeks oral antibiotic course after IV antibiotics. Complicated infection with cellulitis at the site of resection of a basal cell carcinoma. So far remains afebrile, leukocytosis on 11/01 has resolved. Blood cultures so far remains negative, reviewed prelim cultures 11/01 and 11/02. Continue elbow elevation. So far no additional IV Dilaudid. Stop Dilaudid. Cont PRN [place]. Follow-up CBC requested. Discussed with case management during rounds. (2) Olecranon bursitis of right elbow: Possible septic bursitis. Continue IV antibiotics. (3) Basal cell carcinoma (BCC): Status post excision 10/29 (4) HTN (hypertension): Goal blood pressure less than 140/90 mmHg. Continue with home dose of amlodipine. (5) Renal mass: Ultrasound noted hypoechoic mass superior pole right kidney may be a cyst. Appears to have central vascularity may be a solid mass. Consider follow-up with imaging to exclude solid mass CT or MRI renal mass protocol. (6) FABIAN (acute kidney injury): Discussed with her further improvement, creatinine at 1.5. Ultrasound without hydronephrosis. Noted hypoechoic mass superior pole right kidney. Will need follow up. Follow up kidney function. Monitor urine output, chemistry, electrolytes and acid-base balance at risk of progression to acute renal failure. Could be a number of causes, including she states has been taking ibuprofen at home. Asked her to discontinue NSAIDs. Additionally noted to have diclofenac gel, should discontinue as well. Discussed with her not to resume NSAIDs at this time until renal function is stable. Additionally received contrast CT on presentation, discussed cannot exclude contrast-induced nephropathy. [place] tionally in case any contribution from possible toxicity of antibiotics vancomycin and Zosyn, changed from Zosyn to cefepime. Pop trough was 15.3. Plan Nausea: Zofran as needed Diarrhea: Discussed with her, suspect may be related to antibiotics. C. difficile checked, negative. Cardiac diet. Heparin 5000 every 12 hourly for DVT prophylaxis Protonix for PUD prophylaxis. Attestations Medical Necessity Statement*: Continue admission for assessment management of cellulitis, wound infection of right forearm wound incised and drained, left open, requiring IV antibiotics, pending cultures, continued wound care with packing, post discharge planning. Diagnoses Postoperative wound cellulitis T81.49XA Olecranon bursitis of right elbow M70.21 Basal cell carcinoma (BCC) C44.91 HTN (hypertension) I10 Renal mass N28.89 FABIAN (acute kidney injury) N17.9
[2022-11-07] MEDS: vancomycin 1,000 MG in sodium chloride 0.9% 250 ML 250 MG IV (14:06)
[2022-11-07] MEDS: LORazepam 0.5 mg Tablet PO ×2 (14:06→22:41)
--- NOTE | 2022-11-07 14:57 | P.PN_ITS ---
Subjective Subjective: Patient is seen in her room. She is doing much better and is able to move her arm more freely. She has fewer complaints of pain. Medications: Reviewed: Yes Vitals/I&O/Wt Last Vital Signs Temp 98.4 F 11/07/22 11:46 Pulse 68 11/07/22 11:46 Resp 18 11/07/22 11:46 BP 107/66 11/07/22 11:46 Pulse Ox 96 11/07/22 11:46 O2 Del Method Room Air 11/07/22 11:46 O2 Flow Rate 8 11/05/22 19:43 11/06/22 11/07/22 11/07/22 22:59 06:59 14:59 Intake Total 530 / 530 Balance 530 / 530 Weight last 48 hrs Weight 145 lb Physical Exam Const: COMMON NORMALS: no acute distress, average body habitus, patient oriented x3 and alert GENERAL APPEARANCE: cooperative and comfortable ORIENTATION/CONSCIOUSNESS: Yes awake HENMT: COMMON NORMALS: normocephalic and atraumatic HEAD & SCALP: normocephalic and atraumatic Eye: GENERAL EYE: appearance normal, both eyes and all related structures Chest: COMMONS NORMALS: normal inspection of the chest Resp: COMMON NORMALS: normal respiratory effort EFFORT & INSPECTION: Yes able to speak in complete sentences and Yes symmetric chest movement Extremity: RIGHT UPPER EXTREMITY: Yes elbow joint (Dressing is intact. Dressing changes daily with iodoform per nursing) Right elbow: Yes palpation (Minimal discomfort), Yes ROM (Slowly improving) and Yes neurovascular exam (Intact distally) Neuro: COMMON NORMALS: patient oriented x3 SENSORIUM/ORIENTATION: Yes alert Psych: COMMON NORMALS: mental status grossly normal APPEARANCE: Yes grossly normal ATTITUDE: Yes calm and Yes engaged ATTENTION/CONCENTRATION: Yes attention grossly intact Skin: COMMON NORMALS: no rashes or lesions noted GENERAL SKIN EXAM: no rashes or lesions noted Data 11/07/22 04:00 11/07/22 04:00 Micro: Microbiology 11/07/22 05:05 MRSA Culture - Final Nose 11/02/22 08:00 Blood Culture - Final Blood NO GROWTH AFTER 5 DAYS 11/05/22 12:37 Gram Stain - Final Elbow - #1 Wound Culture - Preliminary Coag positive Staphylococcus 11/05/22 12:37 Gram Stain - Final Elbow - #2 Tissue Culture - Preliminary Coag positive Staphylococcus A&P Assessment and plan (1) Postoperative wound cellulitis: Patient was admitted following deep biopsy in the antecubital fossa of what is presumed to be a basal cell carcinoma, and the biopsy was performed at her primary care's office. She was placed on IV antibiotic upon admission to the hospital. Follow-up studies demonstrated no evidence of abscess in the soft tissues. The patient was taken to the operating room for formal irrigation and debridement. Cultures were obtained, and the wound was packed. Currently, it is packed with iodoform gauze. The patient is having daily that dressing changes which she is tolerating well. She will need wound care as an outpatient. She has concerns because her sister has MRSA. (2) Post op infection: (3) Cellulitis: (4) Basal cell carcinoma (BCC): Attestations Medical Necessity Statement*: Ongoing antibiotic and wound care therapies Coding Level of Care Code Acute Code for [facility] Diagnoses Postoperative wound cellulitis T81.49XA Post op infection T81.40XA Cellulitis L03.90 Basal cell carcinoma (BCC) C44.91
[2022-11-07] MEDS: acetaminophen 325 mg Tablet 650 MG PO (22:45)
[2022-11-08] VITALS: BP 121/75; PULSE 71; RESP 16; TEMP 36.7; O2SAT 97
[2022-11-08] MEDS: vancomycin 1,000 MG in sodium chloride 0.9% 250 ML 250 MG IV (02:50)
[2022-11-08] MEDS: HYDROcodone-acetaminophen 7.5-325 mg Tablet 1 TAB PO ×3 (02:50→11:53)
[2022-11-08 04:05] LABS: Basophils % 0.9 %; Eosinophils # 0.2 10^3/uL (0.0-0.8); Hematocrit 34.1 % (37.0-47.0); Hemoglobin 11.2 g/dL (11.5-15.3); Lymphocytes % 22.1 %; Mean Corpuscular HGB Conc 32.8 g/dL (30.0-36.0); Mean Corpuscular Hemoglobin 27.5 pg (28.0-34.0); Mean Corpuscular Volume 83.8 fl (81-99); Monocytes # 0.6 10^3/uL (0.2-0.9); Monocytes % 13.2 %; Neutrophils # 2.66 10^3/uL (1.8-7.7); Neutrophils % 58.4 %; Nucleated Red Blood Cells % 0 %; Platelet Count 149 10^3/cmm (130-400); Red Blood Count 4.07 10^6/uL (4.1-5.3); Red Cell Distribution Width 13.1 % (12.1-15.1); White Blood Count 4.6 10^3/uL (4.0-10.0)
[2022-11-08 04:30] LABS: Anion Gap 12.5 (5-19); Blood Urea Nitrogen 10 mg/dL (8-23); Calcium 8.9 mg/dL (8.5-10.5); Carbon Dioxide 25 mmol/L (22-29); Chloride 107 mmol/L (98-107); Glucose 99 mg/dL (65-115); Osmolality Calculated 291 mOsm/kg (285-295); Potassium 3.5 mmol/L (3.5-5.1); Sodium 141 mmol/L (136-145)
[2022-11-08] MEDS: amlodipine 10 mg Tablet PO (06:08)
[2022-11-08] MEDS: LORazepam 0.5 mg Tablet PO (07:01)
[2022-11-08 07:53] VITALS: BP 146/88; PULSE 67; RESP 18; TEMP 36.7; O2SAT 98
[2022-11-08 08:00] VITALS: PULSE 61; O2SAT 98
[2022-11-08] MEDS: cefepime 1,000 MG in sodium chloride 0.9% (plus) 50 ML 100 MG IV (08:27)
[2022-11-08] MEDS: pantoprazole DR 40 mg Tablet PO (08:28)
[2022-11-08] MEDS: escitalopram 10 mg Tablet PO (08:28)
--- NOTE | 2022-11-08 10:41 | P.DS_ITS ---
Discharge Providers Date of Admission: 11/02/22 10:07 Date of Discharge: November 08, 2022 Attending Provider at Admission: Elan Rizzo MD Attending Provider at Discharge: Luis Alberto Smith Primary Care Provider: Navin Horton MD Diagnoses at Discharge Discharge Diagnosis (1) Postoperative wound cellulitis: Status: Acute (2) Post op infection: Status: Acute (3) Cellulitis: Status: Acute (4) Basal cell carcinoma (BCC): Status: Acute Reason for Visit Reason for Visit: right swelling and pain to surgery site R arm Brief History: Stella Covarrubias is a 62 year old female with past medical history of liver cirrhosis, hepatitis C posttreatment, diverticulosis, chronic pain disorder who was previously on narcotic pain medications and has since been weaned off, hypertension, generalized anxiety disorder who underwent presumed basal cell carcinoma resection at primary's office from right upper arm just proximal to the elbow on 10/29.? Since Thursday patient has been having worsening redness of the elbow along with pain.? She has been in the ER once since then and was discharged on oral clindamycin.? As the elbow and the skin continue to got worse she present to the ER.? She otherwise denies any nausea vomiting, headache, dysuria, diarrhea.? Does complain of fever without chills at home. Blood work appreciated for a white count of 10.7, stable hemoglobin, stable CMP with a TSH of 7.94. Hospital Course Hospital Course Blood cultures were collected. She was empirically started on IV vancomycin and Zosyn. Blood cultures have remained negative. Initially had no drainage from the wound, elbow CT on presentation without acute fracture or dislocation, with anterior and posterior elbow edema with fluid as well as antecubital skin thickening with subcutaneous edema. No rim-enhancing fluid collection visualized. No evidence of soft tissue air. Cellulitis likely anteriorly and laterally with olecranon bursitis likely posteriorly. She was seen and assessed by orthopedics and surgery with regards to soft tissue infection of the and possible septic olecranon bursitis, on evaluation noted to have fluid initially anteriorly, but no abscess, was not found to have fluid posteriorly. Recommendation for continued IV antibiotics with no need for aspiration or other aggressive treatment at the time. Subsequently erythema and swelling about the right proximal forearm and distal upper arm decreasing, but persistent on anterolateral proximal forearm and incision was noted starting to drain. Wound culture collected. She further discussed underwent right antecubital fossa irrigation and debridement with further cultures. Wound was not closed, packed with iodoform with anticipation of healing by secondary intention, but with consideration of regulation regarding possible delay closure. Her symptoms continue to improve. She remained afebrile, without leukocytosis. Wound and intraoperative cultures eventually returned consensus organism as MRSA. We discussed options with her for continued antibiotic care. Discussed consideration of longer coverage with consideration of possibility of septic bursitis extending antibiotic course for additional 3 weeks following the IV infusions. Discussed consideration of number of antibiotic agents, settling after discussion of risks and benefits on linezolid. She understands need for follow-up blood counts to monitor for any pancytopenia, and to seek medical attention in case of any concerning symptoms, seizure, etc. She is asked to follow-up with wound care clinic after discharge. Discussed with her regarding her sister helping her changing the dressing and repacking of the wound, she was initially concerned as her sister has MRSA, however, as the culture came back with MRSA she would be okay with her sister doing it if sister was willing and able. Nursing is getting in touch with her sister to confirm and provide education. She should still follow-up with wound care clinic, however, if sister unable to assist in repacking and dressing of the wound, should follow-up with wound care for daily or at least every other day packing. Orthopedic surgery wants to see her for reassessment in 2 weeks as well. Her convalescence has been complicated by acute kidney injury noted in the hospital, creatinine rising up to 1.1 on 11/04 up to 1.9 highest on 11/05. Previously normal baseline. As discussed with her not entirely clear cause, possibly contrast-induced nephropathy with contrast-enhanced elbow CT on presentation, possibly NSAID induced, but discussed with her also cannot exclude combination of antibiotics with vancomycin and Zosyn. She had also had some nausea as well as diarrhea. Antibiotics were adjusted, Zosyn was stopped, continued vancomycin and with cefepime empirically. Renal function has been gradually improving, today creatinine down to 1.4. Was additionally assessed to exclude obstructive uropathy with kidney ultrasound, which incidentally revealed hypoechoic mass superior pole right kidney, possibly a cyst, however, does appear to be central vascularity suggesting this may be a solid mass. As discussed with her, she reports history of renal cell cancer in her brother. She is referred for additional follow-up imaging with renal mass protocol MRI, please follow-up results. Diarrhea was additionally assessed by C. difficile PCR which was negative. Diarrhea has since subsided. She still having mild nausea, and states she has some Zofran to take at home if needed. She was given the opportunity to ask questions. She is doing better overall discussion about returning home. States that she will still need for opioid pain medication at discharge due to still some intermittent throbbing pain, discussed with her risks of opioid use, discussed small prescription with follow-up with primary provider for reassessment, and she knows to discontinue medication as soon as no longer needed. She knows to return or seek medical attention in case of any worsening or new concerning symptoms. Physical Exam Const: COMMON NORMALS: patient oriented x3 and alert GENERAL APPEARANCE: cooperative ORIENTATION/CONSCIOUSNESS: Yes awake HENMT: COMMON NORMALS: oropharynx normal Neck/C-Spine: COMMON NORMALS: no JVD Resp: COMMON NORMALS: normal respiratory effort and clear to auscultation bilaterally AUSCULTATION: clear to auscultation bilaterally Cardio: COMMON NORMALS: no JVD, regular rhythm, S1 normal heart sound present, S2 normal heart sound present and No murmurs present (Cardio) RHYTHM: regular rhythm HEART SOUNDS: S1 normal heart sound present and S2 normal heart sound present GI: COMMON NORMALS: Normal to inspection, nondistended, normoactive bowel sounds present, Soft to palpation and non-tender PALPATION: Yes Soft to palpation Extremity: COMMON NORMALS: no joint enlargement and no pedal edema OTHER: Dressing over R arm, no proximal redness or swelling Neuro: COMMON NORMALS: patient oriented x3 and moves all extremities SEN SORIUM/ORIENTATION: Yes alert Skin: COMMON NORMALS: no rashes or lesions noted GENERAL SKIN EXAM: no rashes or lesions noted OTHER: Near resolution in amount of erythema, induration of skin of distal upper arm, proximal forearm, distal right upper arm. Arm elevated, elastic bandage in place. Discharge Data Studies Completed and Pending Completed Studies During Hospitalization Category Date Time Status CT elbow RT w con [id number] Stat Cat Scan 11/02/22 01:24 Completed US kidney bilateral with bladder [US renal BI with PV Ultrasound 11/05/22 20:50 Completed bladder] Routine Pending at discharge Category Date Time Status Anaerobic Culture Routine Lab 11/05/22 12:56 Uncollected Basic Metabolic Panel AM LABS Lab 11/09/22 04:00 Ordered Complete Blood Count w/Auto AM LABS Lab 11/09/22 04:00 Ordered Wound Culture and Gram Stain Routine Lab 11/04/22 20:48 Uncollected Radiology Impressions Elbow CT 11/02/22 01:24 IMPRESSION: 1. No acute fracture or dislocation visualized. 2. Anterior and posterior elbow edema and fluid as described with no actual abscess noted. Cellulitis is likely anteriorly and laterally with olecranon bursitis likely posteriorly. Renal Ultrasound 11/05/22 20:50 IMPRESSION: 1. No hydronephrosis or renal atrophy. 2. Hypoechoic mass superior pole RIGHT kidney may be a cyst. There does appear to be central vascularity suggesting this may be a solid mass. Consider follow- up imaging to exclude solid mass. CT or MRI renal mass protocol recommended. 3. Nondistended urinary bladder. Laboratory Results WBC 4.6 10^3/uL (4.0-10.0) 11/08/22 03:30 RBC 4.07 10^6/uL (4.1-5.3) L 11/08/22 03:30 Hgb 11.2 g/dL (11.5-15.3) L 11/08/22 03:30 Hct 34.1 % (37.0-47.0) L 11/08/22 03:30 MCV 83.8 fl (81-99) 11/08/22 03:30 MCH 27.5 pg (28.0-34.0) L 11/08/22 03:30 MCHC 32.8 g/dL (30.0-36.0) 11/08/22 03:30 RDW 13.1 % (12.1-15.1) 11/08/22 03:30 Plt Count 149 10^3/cmm (130-400) 11/08/22 03:30 MPV 11.0 fL (7.4-10.4) H 11/08/22 03:30 Neut % (Auto) 58.4 % 11/08/22 03:30 Lymph % (Auto) 22.1 % 11/08/22 03:30 [place] % (Auto) 13.2 % 11/08/22 03:30 Eos % (Auto) 5.0 % 11/08/22 03:30 Baso % (Auto) 0.9 % 11/08/22 03:30 Neut # (Auto) 2.66 10^3/uL (1.8-7.7) 11/08/22 03:30 Lymph # (Auto) 1.0 10^3/uL (0.8-4.8) 11/08/22 03:30 [place] # (Auto) 0.6 10^3/uL (0.2-0.9) 11/08/22 03:30 Eos # (Auto) 0.2 10^3/uL (0.0-0.8) 11/08/22 03:30 Baso # (Auto) 0.0 10^3/uL (0.0-0.1) 11/08/22 03:30 Nucleated RBC % (auto) 0 % 11/08/22 03:30 Nucleated RBCs # 0.0 /100WBC 11/08/22 03:30 Sodium 141 mmol/L (136-145) 11/08/22 03:30 Potassium 3.5 mmol/L (3.5-5.1) 11/08/22 03:30 Chloride 107 mmol/L (98-107) 11/08/22 03:30 Carbon Dioxide 25 mmol/L (22-29) 11/08/22 03:30 Anion Gap 12.5 (5-19) 11/08/22 03:30 BUN 10 mg/dL (8-23) 11/08/22 03:30 Creatinine 1.4 mg/dL (0.5-0.9) H 11/08/22 03:30 GFR Calculation 38.0 mL/min (90-130) L 11/08/22 03:30 Glucose 99 mg/dL (65-115) 11/08/22 03:30 Estimat Average Glucose 91 11/01/22 23:40 Hemoglobin A1c 4.8 % (4.0-6.0) 11/01/22 23:40 Calculated Osmolality 291 mOsm/kg (285-295) 11/08/22 03:30 Lactic Acid Cancelled 11/01/22 23:40 Lactate 0.6 mmol/L (0.5-2.2) 11/02/22 02:50 Calcium 8.9 mg/dL (8.5-10.5) 11/08/22 03:30 Phosphorus 3.0 mg/dL (2.5-4.5) 11/03/22 04:46 Magnesium 1.7 mg/dL (1.7-2.3) 11/03/22 04:46 Total Bilirubin 0.7 mg/dL (0.15-1.2) 11/03/22 04:46 AST 14 U/L (0-32) 11/03/22 04:46 ALT 8 U/L (0-33) 11/03/22 04:46 Alkaline Phosphatase 63 U/L (35-105) 11/03/22 04:46 C-Reactive Protein 50.2 mg/L (0.0-4.9) H 11/01/22 23:40 C-Reactive Protein Cancelled 11/01/22 23:40 Total Protein 6.1 g/dL (6.6-8.7) L 11/03/22 04:46 Albumin 3.1 g/dL (3.5-5.2) L 11/03/22 04:46 Globulin 3.0 g/dL (1.3-4.6) 11/03/22 04:46 Triglycerides 91 mg/dL (0-150) 11/03/22 04:46 Cholesterol 98 mg/dL (0-200) 11/03/22 04:46 LDL Cholesterol, Calc 50 mg/dL (50-129) 11/03/22 04:46 HDL Cholesterol 30 mg/dL (60-100) L 11/03/22 04:46 LDL/HDL Ratio 1.67 RATIO (0.00-3.22) 11/03/22 04:46 Cholesterol/HDL Ratio 3.27 mg/dL (0.0-4.40) 11/03/22 04:46 Vitamin B12 237 pg/mL (232-1245) 11/01/22 23:40 Folate 12.3 ng/mL (4.8-37.3) 11/03/22 03:18 Procalcitonin 0.10 ng/mL (0-0.5) 11/02/22 Unknown TSH 7.94 uIU/mL (0.27-4.20) H 11/01/22 23:40 Free T4 1.19 ng/dL (0.82-1.77) 11/01/22 23:40 Free T3 4.6 PG/ML (2.0-4.4) H 11/01/22 23:40 Urine Color Straw (Yellow) 11/03/22 09:50 Urine Appearance Clear (CLEAR) 11/03/22 09:50 Urine pH 6 (5-7) 11/03/22 09:50 Ur Specific [place] 1.000 (1.005-1.030) L 11/03/22 09:50 Urine Protein Neg (Negative) 11/03/22 09:50 Urine Glucose (UA) Norm (Normal) 11/03/22 09:50 Urine Ketones Negative (Negative) 11/03/22 09:50 Urine Blood Neg (Negative) 11/03/22 09:50 Urine Nitrate Negative (Negative) 11/03/22 09:50 Urine Bilirubin Neg (Negative) 11/03/22 09:50 Urine Urobilinogen Norm mg/dL (Negative) 11/03/22 09:50 Ur Leukocyte Esterase Negative (Negative) 11/03/22 09:50 Vancomycin Trough 15.3 ug/mL (10-15) H 11/07/22 04:00 Vitals Last Vital Signs Temp 98.1 F 11/08/22 07:53 Pulse 67 11/08/22 07:53 Resp 18 11/08/22 07:53 BP 146/88 11/08/22 07:53 Pulse Ox 98 11/08/22 07:53 O2 Del Method Room Air 11/08/22 00:00 O2 Flow Rate 8 11/05/22 19:43 Discharge Plan Discharge Patient Disposition: Home Condition: Stable Prescriptions: New (DME) iodoform 1/4 X 5 -yard bandage See Rx Instructions .Route Qty: 12 2RF Rx Instructions: As directed (DME) Band-Aid Mirasorb Gauze 4 X 4 sponge See Rx Instructions .Route Qty: 50 2RF Rx Instructions: As directed (DME) elastic bandage 2 X 1.9 -yard bandage See Rx Instructions .Route Qty: 10 2RF Rx Instructions: As directed linezolid 600 mg tablet 600 mg PO BID 21 Days Qty: 42 0RF Continued acetaminophen 500 mg tablet 500 mg PO Q6H PRN (Reason: Pain) Qty: 100 3RF ondansetron HCl 4 mg tablet 4 mg PO Q6H PRN (Reason: Nausea And Vomiting) Qty: 30 1RF dicyclomine 10 mg capsule 10 mg PO TID PRN (Reason: cramps) Qty: 90 0RF docusate sodium 250 mg capsule 250 mg PO DAILY PRN (Reason: stool softener) Qty: 30 5RF pantoprazole 40 mg tablet,delayed release (DR/EC) 40 mg PO DAILY Qty: 90 8RF amlodipine 10 mg tablet 10 mg PO QAM Qty: 30 5RF lorazepam 0.5 mg tablet 0.5 mg PO TID PRN (Reason: anxiety) 30 Days Qty: 90 2RF escitalopram oxalate 10 mg tablet 10 mg PO DAILY Qty: 30 3RF Percocet 2.5-325 mg tablet 1 tab PO Q8H Qty: 10 0RF Discontinued diclofenac sodium 1 % gel See Rx Instructions .ROUTE .COMPLEX Qty: 100 5RF Dose Instruction: APPLY 2 GRAMS TOPICAL TO SINGLE ELBOW, WRIST, OR HAND FOUR TIMES DAILY. HAND INCLUDES PALM, FINGERS AND BACK OF HAND. Rx Instructions: APPLY 2 GRAMS TOPICAL TO SINGLE ELBOW, WRIST, OR HAND FOUR TIMES DAILY PRN- HAND INCLUDES PALM, FINGERS AND BACK OF HAND. Discharge Orders: Discharge Order (Routine); Ordered 11/08/22 Ordered By: Luis Alberto Smith Other Ambulatory Orders: MR abdomen wo/w con* [id number] (Routine) Timeframe: 1 Week Facility: [facility] - Location: [facility] Ordered By: Luis Alberto Smith Referrals: Wound Care [Provider Group] - 1-3 days (If patient's sister unable to perform daily packing, follow up for daily packing or at least every other day. If sister can perform packing, follow up twice weekly for reassessment. ) Whitney Seymour MD [Physician] - 2 weeks [facility], [Staff Physician] - 4-7 days Discharge Diet: Cardiac Patient Instructions: Linezolid (By mouth), MRSA (Methicillin-Resistant Staphylococcus Aureus) (GEN), Acute Kidney Injury (GEN), Elbow Bursitis (GEN), Acute Wounds (GEN), Opioid Safety Activity Restrictions/Additional Instructions: Remove old packing and repack with iodoform gauze strip daily. Apply clean dressing and elastic bandage. Follow-up with wound care clinic for reassessment. Follow-up with orthopedic surgery in office in 2 weeks. If unable to change at home, follow-up with wound care for daily or at least every other day changes. Complete antibiotic course with linezolid as discussed for wound infection, but also for consideration of possible mild bursitis, cannot exclude infection. In case of any worsening or new concerning symptoms seek medical attention without delay. Follow-up with your primary doctor for assessment of possible kidney mass and results of the MRI. Have your primary doctor recheck your kidney function to make sure kidney injury is resolving. Avoid any NSAIDs including ibuprofen and/or diclofenac gel or any other. Follow-up with your primary doctor to make sure nausea has resolved. If not, consider further evaluation. Discharge Attestations Time Spent in Discharge Care*: greater than 30 min Quality Metrics Clinical Quality Measures [ No reported AMI, CVA or VTE this stay] Coding Level of Care Code 90066 Total time (in minutes) for Discharge: 55 Diagnoses Postoperative wound cellulitis T81.49XA Post op infection T81.40XA Cellulitis L03.90 Basal cell carcinoma (BCC) C44.91
[2022-11-08] MEDS: ondansetron 2 mg/ML SDV 2 mL 4 MG IVP (11:53)
[2022-11-08 12:09] VITALS: BP 138/84; PULSE 61; RESP 17; TEMP 36.8; O2SAT 98
--- NOTE | 2022-11-08 15:41 | PC.NURSE ---
This nurse provided wound care education to patient and patients sister. All questions were answers and patient and family verbalized understanding.
[2022-11-08 15:53] VITALS: BP 138/84; PULSE 61; RESP 17; TEMP 36.8; O2SAT 98
== END 2022-11-08 15:55 | disposition home or self-care (01) | DRG 857 ==
LOC: ER 11-02 07:36 → MEDSURG 11-02 10:52
PROVIDERS: Emergency Medicine; Physician Assistant; Specialist; Admitting Provider Student in an Organized Health Care Education/Training Program; Emergency Provider Emergency Medicine; PCP Family Medicine Adult Medicine; Visit Provider Internal Medicine
PROC: 0JDD0ZZ Extraction of Right Upper Arm Subcutaneous Tissue and Fascia, Open Approach (ICD-10-PCS; principal; 2022-11-05 11:50)
DX: T81.49XA Infection following a procedure, other surgical site, initial encounter (principal); L03.113 Cellulitis of right upper limb; N17.9 Acute kidney failure, unspecified; Y84.8 Other medical procedures as the cause of abnormal reaction of the patient, or of later complication, without mention of misadventure at the time of the procedure; B95.62 Methicillin resistant Staphylococcus aureus infection as the cause of diseases classified elsewhere; J44.9 Chronic obstructive pulmonary disease, unspecified; Z86.19 Personal history of other infectious and parasitic diseases; K74.60 Unspecified cirrhosis of liver; F32.A Depression, unspecified; F41.1 Generalized anxiety disorder; I10 Essential (primary) hypertension; G89.29 Other chronic pain; Z79.891 Long term (current) use of opiate analgesic; R11.0 Nausea; R19.7 Diarrhea, unspecified; M70.21 Olecranon bursitis, right elbow; K21.9 Gastro-esophageal reflux disease without esophagitis; N28.89 Other specified disorders of kidney and ureter; C44.612 Basal cell carcinoma of skin of right upper limb, including shoulder
CPT/HCPCS: 36415; 73201; 76770; 76857; 80048; 80053; 80061; 80202; 81003; 82607; 82746; 83036; 83605; 83735; 84100; 84145; 84439; 84443; 84481; 85025; 86140; 87040; 87070; 87075; 87077; 87176; 87186; 87205; 87493; 87641; 94664; 96365; 96367; 96372; 96375; 96376; 97165; 99284; 99285; J0131; J0690; J0692; J1100; J1170; J1644; J1885; J2270; J2405; J2543; J2704; J3010; J3370; J3490; J7050; Q9967

== ENCOUNTER → 2022-11-11 07:55 | Outpatient (BNVA) | payer MEDICARE, MEDICAID, SELFPAY | PROVIDERS: PCP Family Medicine Adult Medicine; Visit Provider Nurse Practitioner Family | DX: I96 Gangrene, not elsewhere classified (principal); L98.492 Non-pressure chronic ulcer of skin of other sites with fat layer exposed | CPT/HCPCS: 11042; 99213 ==

== ENCOUNTER → 2022-11-24 13:45 | Outpatient (BNVA) | payer MEDICARE, MEDICAID, SELFPAY | PROVIDERS: PCP Family Medicine Adult Medicine; Visit Provider Thoracic Surgery (Cardiothoracic Vascular Surgery) | DX: T81.31XD Disruption of external operation (surgical) wound, not elsewhere classified, subsequent encounter (principal); Y83.8 Other surgical procedures as the cause of abnormal reaction of the patient, or of later complication, without mention of misadventure at the time of the procedure | CPT/HCPCS: 97597; A6021 ==

== ENCOUNTER → 2022-11-26 13:43 | Outpatient (BNVA) | payer MEDICARE, MEDICAID, SELFPAY | PROVIDERS: PCP Family Medicine Adult Medicine; Visit Provider Specialist | DX: M70.21 Olecranon bursitis, right elbow (principal); T81.49XA Infection following a procedure, other surgical site, initial encounter; X58.XXXA Exposure to other specified factors, initial encounter | CPT/HCPCS: 73080; 99024 ==

== ENCOUNTER → 2022-12-08 13:11 | Outpatient (BNVA) | payer MEDICARE, MEDICAID, SELFPAY | PROVIDERS: PCP Family Medicine; Visit Provider Thoracic Surgery (Cardiothoracic Vascular Surgery) | DX: Z09 Encounter for follow-up examination after completed treatment for conditions other than malignant neoplasm (principal) | CPT/HCPCS: 99212 ==

== ENCOUNTER 2023-03-05 12:33 | Observation (INO) | payer MEDICARE, MEDICAID, SELFPAY ==
[2023-03-05] VITALS (7 sets, daily range): BP systolic 119–157; BP diastolic 82–100; PULSE 57–68; RESP 16–26; TEMP 36.6–36.8; O2SAT 94–98; BMI 23.1
--- NOTE | 2023-03-05 13:07 | ED_ITS ---
HPI - Abdominal Pain General: Chief Complaint: Abdominal Pain Stated Complaint: back pain Time Seen by Provider: 03/05/23 12:35 History of Present Illness: 62-year-old female presents emergency department with complaints of severe 10 out of 10 mid back pain that radiates from her epigastric area. She does have associated nausea without vomiting. Patient states she has had intermittent abdominal pain for the previous 2 to 3 months but never as bad as today. Associated Symptoms: Reports nausea Review of Systems General: Reports: 10 or more systems reviewed and unremarkable except in HPI and below GI: Reports: abdominal pain and nausea Musc: Reports: back pain PFSH ED PFSH: Medical History Chronic neck pain Chronic right shoulder pain Cirrhosis of liver History of past hepatitis C that was treated Constipation Degenerative disk disease Depression Diverticulosis of colon Encounter for chronic pain management Generalized anxiety disorder Herniation of left side of L4-L5 intervertebral disc History of 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 infection HTN (hypertension) Opioid contract exists Surgical History History of neck surgery S/P TIPS (transjugular intrahepatic portosystemic shunt) Family History Mother Heart problem Brother Heart problem Social History Smoking and tobacco/nicotine status: never used tobacco/nicotine Second hand smoke exposure: Yes Alcohol intake: never Substance/Drug Use: never Physical Exam Narrative: EXAM NARRATIVE: Constitutional: the patient appears well nourished and with normal developement. Vital signs reviewed as documented. HENMT: Normocephalic, atraumatic. Extermal ears with normal appearance without drainage. Nose without drainage, normal appearance. Mucus membranes moist. Neck is supple, No jugular venous distension, trachea is midline, no appreciable carotid bruits. No lymphadenopathy. No meningeal signs. Flexion, extension and lateral rotation is without pain. Eyes: Pupils are equal, round, reactive to light and accomidation. No scleral icterus. Extra-ocular movement are intact. Thorax is symmetrical and with equal rise and fall with respirations. Resp: Lungs are clear to auscultation. No wheezes, rales, crackles or ronchi at pesent. Cardio: Regular rate and rhythm. Positive S1, S2. No appreciable murmurs, rubs or gallops. GI: Abdominal exam reveals normal bowel sounds to all quadrants. No organomega ly. No obvious palpable masses noted. No hepatomegaly appreciated. Soft, Tender to palpation to the epigastric region.. Extremity: Extremities are non-edematous and both femoral and pedal pulses are 2+ and equal bilaterally. Moves all extremities well, sensation in all extremities. Neuro: Alert and oriented x4, person, place, time and situation. Cranial nerves II through XII are grossly intact, there is no focal neurological deficits that I can appreciate at present. Motor strength in the upper and lower extremities are equal and bilateral 5/5. Psych: Cooperative, calm, normal thought process, appropriate judgment. Skin: No lesions, rashes. No gross abnormalities noted. Back: Symmetrical, no obvious deformity, No CVA tenderness Course Reevaluation(s): Reevaluation #1: Reevaluation the patient after she received Toradol for her pain. She states that she has significant pain relief and her pain is now a 3 out of 10. I did discuss with her the findings of her urinalysis which demonstrated that it was cloudy as well as her CBC that demonstrated an 18,000 white count. Time: 14:48 Vital Signs: Vital signs: Vital Signs Temperature 98.1 F 03/08/23 12:36 Pulse Rate 62 03/08/23 12:36 Respiratory Rate 18 03/08/23 12:36 Blood Pressure 132/79 03/08/23 12:36 Pulse Oximetry 99 03/08/23 12:36 Oxygen Delivery Me thod Room Air 03/08/23 11:27 Oxygen Flow Rate 10 03/05/23 21:54 MDM - Abdominal Pain Medical Decision Making Physical exam completed and documented, I will obtain a CBC, CMP and lipase as well as a CT scan to evaluate for intra-abdominal infection, pancreatitis, colitis, cholecystitis or cholelithiasis. I will provide the patient pain medic ation as well as antinausea medication. Medical Records I reviewed the patient's medical records. Lab Data I reviewed the patient's lab results. 03/08/23 04:25 03/08/23 04:25 Labs/Radiology: Radiology Impressions Abdomen/Pelvis CT 03/05/23 14:47 IMPRESSION: 1. There is peripancreatic edema noted. The edema also surrounds the duodenum, and extends into the right and left anterior pararenal spaces. No loculated collection. Differential diagnostic considerations include pancreatitis, versus duodenitis versus duodenal ulcer disease. The edema is new when compared to CT abdomen and pelvis dated 11/03/2021. 2. The kidneys are morphologically normal. No nephrolithiasis. No hydronephrosis. No ureteral calculi. No obstructive uropathy. 3. Liver configuration is consistent with hepatic cirrhosis. No focal liver lesions are demonstrated. 4. Trace ascites in the abdomen and pelvis. 5. Small noncalcified gallstones are suspected in the gallbladder lumen. Mild gallbladder wall thickening. No biliary dilatation. Laboratory Results WBC 18.24 10^3/uL (3.29-11.43) H 03/05/23 13:18 RBC 5.50 10^6/uL (3.85-5.65) 03/05/23 13:18 Hgb 15.10 g/dL (11.27-16.99) 03/05/23 13:18 Hct 45.6 % (36-47) 03/05/23 13:18 MCV 82.9 fl (85-98) L 03/05/23 13:18 MCH 27.5 pg (27-33) 03/05/23 13:18 MCHC 33.1 g/dL (30-55) 03/05/23 13:18 RDW 13.3 % (12.1-15.1) 03/05/23 13:18 Plt Count 227 10^3/cmm (157-399) 03/05/23 13:18 MPV 12.4 fL (7.4-10.4) H 03/05/23 13:18 Neut % (Auto) 72.6 % 03/05/23 13:18 Lymph % (Auto) 20.0 % 03/05/23 13:18 [place] % (Auto) 5.9 % 03/05/23 13:18 Eos % (Auto) 0.7 % 03/05/23 13:18 Baso % (Auto) 0.4 % 03/05/23 13:18 Neut # (Auto) 13.25 10^3/uL (1.8-7.7) H 03/05/23 13:18 Lymph # (Auto) 3.6 10^3/uL (0.8-4.8) 03/05/23 13:18 [place] # (Auto) 1.1 10^3/uL (0.2-0.9) H 03/05/23 13:18 Eos # (Auto) 0.1 10^3/uL (0.0-0.8) 03/05/23 13:18 Baso # (Auto) 0.1 10^3/uL (0.0-0.1) 03/05/23 13:18 Nucleated RBC % (auto) 0 % 03/05/23 13:18 Nucleated RBCs # 0.0 /100WBC 03/05/23 13:18 Sodium 139 mmol/L (136-145) 03/05/23 13:18 Potassium 4.1 mmol/L (3.5-5.1) 03/05/23 13:18 Chloride 104 mmol/L (98-107) 03/05/23 13:18 Carbon Dioxide 20 mmol/L (22-29) L 03/05/23 13:18 Anion Gap 19.1 (5-19) H 03/05/23 13:18 BUN 10 mg/dL (8-23) 03/05/23 13:18 Creatinine 0.7 mg/dL (0.5-0.9) 03/05/23 13:18 GFR Calculation 84.5 mL/min (90-130) L 03/05/23 13:18 Glucose 160 mg/dL (65-115) H 03/05/23 13:18 Calculated Osmolality 290 mOsm/kg (285-295) 03/05/23 13:18 Lactic Acid 1.8 mmol/L (0.5-2.2) 03/05/23 15:40 Calcium 10.0 mg/dL (8.5-10.5) 03/05/23 13:18 Total Bilirubin 1.1 mg/dL (0.15-1.2) 03/05/23 13:18 AST 91 U/L (0-32) H 03/05/23 13:18 ALT 29 U/L (0-33) 03/05/23 13:18 Alkaline Phosphatase 72 U/L (35-105) 03/05/23 13:18 Total Protein 7.1 g/dL (6.6-8.7) 03/05/23 13:18 Albumin 4.4 g/dL (3.5-5.2) 03/05/23 13:18 Globulin 2.7 g/dL (1.3-4.6) 03/05/23 13:18 Lipase 4265 U/L (13-60) H 03/05/23 15:40 Procalcitonin 0.16 ng/mL (0-0.5) 03/05/23 15:40 Urine Color Dark yellow (Yellow) 03/05/23 14:10 Urine Appearance Hazy (CLEAR) A 03/05/23 14:10 Urine pH 6 (5-7) 03/05/23 14:10 Ur Specific [place] 1.025 (1.005-1.030) 03/05/23 14:10 Urine Protein Neg (Negative) 03/05/23 14:10 Urine Glucose (UA) Norm (Normal) 03/05/23 14:10 Urine Ketones Negative (Negative) 03/05/23 14:10 Urine Blood Neg (Negative) 03/05/23 14:10 Urine Nitrate Negative (Negative) 03/05/23 14:10 Urine Bilirubin 1+ (Negative) H 03/05/23 14:10 Urine Urobilinogen 4 mg/dL (Negative) H 03/05/23 14:10 Ur Leukocyte Esterase Negative (Negative) 03/05/23 14:10 Urine RBC 0-4 /hpf (0-2) H 03/05/23 14:10 Urine WBC 5-10 /hpf (0-5) H 03/05/23 14:10 Ur Squamous Epith Cells 5-10 /hpf (0-5) H 03/05/23 14:10 Calcium Oxalate Crystal T /hpf 03/05/23 14:10 Amorphous Sediment Not Reportable 03/05/23 14:10 Urine Bacteria Trace /hpf (NONE) 03/05/23 14:10 Urine Mucus 3+ /hpf 03/05/23 14:10 Urine Yeast Trace /hpf 03/05/23 14:10 Urine Opiates Screen Negative ng/mL (Negative) 03/05/23 14:10 Ur Barbiturates Screen Negative ng/mL (Negative) 03/05/23 14:10 Ur Phencyclidine Scrn Negative ng/mL (Negative) 03/05/23 14:10 Ur Amphetamines Screen Negative ng/mL (Negative) 03/05/23 14:10 U Benzodiazepines Scrn Negative ng/mL (Negative) 03/05/23 14:10 Urine Cocaine Screen Negative ng/mL (Negative) 03/05/23 14:10 U Marijuana (THC) Screen Positive ng/mL (Negative) H 03/05/23 14:10 All radiology interpretation(s) finalized by discharge Discharge Plan Discharge Patient Disposition: Admitted As Inpatient Admit Provider: Elan Rizzo Clinical Impression: Acute pancreatitis, Abdominal pain Condition: Stable Discharge Diet: As Directed, GI Soft and Full LIquid Discharge Activity: Resume usual activity and Increase activity as tolerated Coding Level of Care Code ED Aircraft Engine Dismantler for Nadia Poole
--- NOTE | 2023-03-05 13:09 | XR_ITS ---
WS: [id number] Thoracic spine, 3 views, 03/05/2023 Clinical Data: pain Comparison: None. Findings: No compression fractures are seen. The disc heights are normal. The paravertebral regions are normal. There are minimal anterior osteophytes of the midthoracic verte bral bodies T7-T9. There is an anterior cervical disc fusion. 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
--- NOTE | 2023-03-05 13:09 | XR_ITS ---
WS: [id number] Lumbar spine, 3 views, 03/05/2023 Clinical Data: pain Comparison: Lumbar spine, 12/24/2012 Findings: No compression fractures or subluxation is seen. There is degenerative disc narrowing at L3-L4 and L4 -L5 with minimal anterior osteophytes. The transverse processes and SI joints are normal. Impression: Degenerative disc narrowing at L3-L4 and L4-L5 with minimal anterior osteophytes.
[2023-03-05] MEDS: ondansetron 2 mg/ML SDV 2 mL 4 MG IVP ×3 (13:19→21:14)
[2023-03-05 13:27] LABS: Basophils # 0.1 10^3/uL (0.0-0.1); Basophils % 0.4 %; Eosinophils # 0.1 10^3/uL (0.0-0.8); Eosinophils % 0.7 %; Hematocrit 45.6 % (36-47); Lymphocytes # 3.6 10^3/uL (0.8-4.8); Mean Corpuscular HGB Conc 33.1 g/dL (30-55); Mean Corpuscular Hemoglobin 27.5 pg (27-33); Mean Corpuscular Volume 82.9 fl (85-98); Mean Platelet Volume 12.4 fL (7.4-10.4); Monocytes # 1.1 10^3/uL (0.2-0.9); Monocytes % 5.9 %; Neutrophils # 13.25 10^3/uL (1.8-7.7); Neutrophils % 72.6 %; Nucleated Red Blood Cells % 0 %; Platelet Count 227 10^3/cmm (157-399); Red Cell Distribution Width 13.3 % (12.1-15.1); White Blood Count 18.24 10^3/uL (3.29-11.43)
[2023-03-05 13:42] LABS: Albumin Level 4.4 g/dL (3.5-5.2); Alkaline Phosphatase 72 U/L (35-105); Blood Urea Nitrogen 10 mg/dL (8-23); Carbon Dioxide 20 mmol/L (22-29); Chloride 104 mmol/L (98-107); Creatinine Clr Calc Pharmacy 74.4286; Globulin 2.7 g/dL (1.3-4.6); Glomerular Filtration Rate 84.5 mL/min (90-130); Glucose 160 mg/dL (65-115); Osmolality Calculated 290 mOsm/kg (285-295); Sodium 139 mmol/L (136-145); Total Bilirubin 1.1 mg/dL (0.15-1.2); Total Protein 7.1 g/dL (6.6-8.7)
[2023-03-05] MEDS: ketorolac 30 mg/mL INJ IVP (14:00)
[2023-03-05 14:12] LABS: Alanine Aminotransferase 29 U/L (0-33); Anion Gap 19.1 (5-19); Aspartate Amino Transferase 91 U/L (0-32); Potassium 4.1 mmol/L (3.5-5.1)
[2023-03-05 14:21] LABS: Urine Appearance Hazy (CLEAR); Urine Color Dark Yellow (Yellow)
[2023-03-05 14:22] LABS: Add Urine Microscopic? YES; Bilirubin Urine 1+ (Negative); Blood Urine Neg (Negative); Glucose Urine UA Norm (Normal); Ketones Urine Negative (Negative); Leukocyte Esterase Urine Negative (Negative); Nitrate Urine Negative (Negative); Protein Urine Neg (Negative); Specific Gravity, Urine 1.025 (1.005-1.030); Urobilinogen Urine 4 mg/dL (Negative); pH Urine 6 (5-7)
[2023-03-05 14:26] LABS: Amphetamines Screen Urine Negative (Negative); Barbiturates Screen Urine Negative (Negative); Benzodiazepines Screen Urine Negative (Negative); Cocaine Screen Urine Negative (Negative); Opiate Screen Urine Negative (Negative); PCP Screen Urine Negative (Negative); THC Screen Urine Positive (Negative)
[2023-03-05 14:29] LABS: Bacteria Urine TRACE /hpf; Mucus Urine 3+ /hpf; RBC Urine 0-4 /hpf (0-2)
[2023-03-05 14:30] LABS: Calcium Oxalate Crystals Urine T /hpf
[2023-03-05 14:31] LABS: Add Urine Culture? Yes
--- NOTE | 2023-03-05 14:47 | CTR_ITS ---
PROCEDURE INFORMATION: Exam: CT Abdomen And Pelvis Without Contrast Exam date and time: 03/05/2023 5:02 PM Age: 62 years old Clinical indication: Abdominal pain; Prior surgery; Surgery date: 6+ months; Surgery type: Hysterectomy. Tips; Patient HX: C/O bilateral flank pain. Wbc of 18k; Additional info: Kidney pain, R/O renal stone TECHNIQUE: Imaging protocol: Computed tomography of the abdomen and pelvis without contrast. Radiation optimization: All CT scans at this facility use at least one of these dose optimization techniques: automated exposure control; mA and/or kV adjustment per patient size (includes targeted exams where dose is matched to clinical indication); or iterative reconstruction. REPORTING DATA: Count of CT and Cardiac NM exams in prior 12 months: This patient has received [address] and 0 known cardiac nuclear medicine studies in the 12 months prior to the current study. COMPARISON: CT abdomen pelvis wo con [id number] 11/03/2021 3:30 PM RADIATION DOSE METRICS: Total DLP (mGy-cm): 573.37 FINDINGS: Lungs: The lung bases appear unremarkable. Liver: Liver configuration is consistent with hepatic cirrhosis. No focal liver lesions are demonstrated. Gallbladder and bile ducts: Small noncalcified gallstones are suspected in the gallbladder lumen. Mild gallbladder wall thickening. No biliary dilatation. Pancreas: There is peripancreatic edema noted. The edema also surrounds the duodenum, and extends into the right and left anterior pararenal spaces. Spleen: Unremarkable. No splenomegaly. Adrenal glands: Unremarkable. No mass. Kidneys and ureters: The kidneys are morphologically normal. No nephrolithiasis. No hydronephrosis. No ureteral calculi. No obstructive uropathy. Stomach and bowel: Diverticulosis of the colon. No evidence of acute diverticulitis. Appendix: No evidence of appendicitis. Intraperitoneal space: No pneumoperitoneum. No significant fluid collection. Trace ascites in the abdomen and pelvis. Vasculature: The aorta is atherosclerotic. No aortic aneurysm. Lymph nodes: No pathologically enlarged lymph nodes. Urinary bladder: Unremarkable as visualized. Reproductive: The uterus is not visualized, consistent with hysterectomy. Status post hysterectomy. Bones/joints: Advanced degenerative disc narrowing at L4-L5. No lumbar compression fractures. No acute osseous abnormality. Soft tissues: Unremarkable. CT/CT kidney stone [id number] IMPRESSION: 1. There is peripancreatic edema noted. The edema also surrounds the duodenum, and extends into the right and left anterior pararenal spaces. No loculated collection. Differential diagnostic considerations include pancreatitis, versus duodenitis versus duodenal ulcer disease. The edema is new when compared to CT abdomen and pelvis dated 11/03/2021. 2. The kidneys are morphologically normal. No nephrolithiasis. No hydronephrosis. No ureteral calculi. No obstructive uropathy. 3. Liver configuration is consistent with hepatic cirrhosis. No focal liver lesions are demonstrated. 4. Trace ascites in the abdomen and pelvis. 5. Small noncalcified gallstones are suspected in the gallbladder lumen. Mild gallbladder wall thickening. No biliary dilatation.
[2023-03-05 16:19] LABS: Lactic Sepsis W/Reflex 1.8 mmol/L (0.5-2.2)
[2023-03-05 16:32] LABS: Procalcitonin 0.16 ng/mL (0-0.5)
[2023-03-05] MEDS: piperacillin-tazobactam 3.375 GM in sodium chloride 0.9% (plus) 50 ML IV (18:26)
[2023-03-05 20:33] LABS: Lipase 4265 U/L (13-60)
[2023-03-05] MEDS: pantoprazole 40 mg SDV IVP (21:14)
[2023-03-05] MEDS: sodium chloride 0.9% 1,000 ML 75 ML IV (21:15)
[2023-03-05] MEDS: morphine 4 mg/mL SDV 1 mL 2 MG IVP (21:21)
[2023-03-05] MEDS: diphenhydrAMINE 50 mg/mL SDV 1mL IVP (21:52)
--- NOTE | 2023-03-05 21:57 | PC.NURSE ---
This nurse and orientee Ping RN were in patient's room completing physical assessment, admission assessment, and starting medication orders. This nurse assessed pt; lungs were clear to auscultation and pt did not complain of any difficulty breathing. This nurse watched Ping administer IV zofran, morphine, and protonix in that order at 2113. The pt rolled onto her left side and complained of a sharp pain in her left lower back. This nurse asked if laying in the left lateral position eased the pain and the patient stated yes. Ping left the room to bring an extra pillow to the patient. The pt looked up at this nurse, began gasping for breath, and hoarsely stated I can't breathe, I can't breathe! This nurse pressed the code button and called for help while assisting the pt to a sitting position. Crash cart was brought to the room and rapid response was called at 2129. Additional staff entered the room to help along with Dr. Benjamin. Pt was placed on nonrebreather mask. Vitals were checked at 2129: HR 67, BP 156/87, RR 26, temp 97.8. Pt was assessed by CORE MANAGER Harrison and found to have wheezy lung sounds. Dr. Benjamin ordered benadryl 50mg IVP once and solu-medrol 80mg IVP once. This nurse administered benadryl at 2151 and solumedrol at 2156. Pt stated it was getting easier to breath.
--- NOTE | 2023-03-05 22:41 | P.HP_ITS ---
Providers/Chief Complaint Admitting Physician: Elan Rizzo MD Primary Care Provider: Darius Marie MD Chief Complaint: back pain History of Present Illness Stella Covarrubias is a 62 year old female with history of hypertension depression insomnia presented with complaint of severe mid back pain followed by abdominal pain since 2 days. She describes pain as 10 out of 10 crampy generalized no aggravating or relieving factors and associated with nausea and mid back. There is no history of fever cold cough diarrhea chest pain or urinary symptoms. As per the patient she had abdominal pain off and on since last few months but got aggravated since last 2 days. She never had similar complaints in the past. She does not smoke and does not use alcohol. Review of Systems Narrative: As per HPI Medications/Allergies Home Medications Medication Instructions Recorded Confirmed Last Taken Type acetaminophen 500 mg tablet 500 mg PO Q6H PRN Pain #100 tabs 02/21/22 03/05/23 03/05/23 Rx docusate sodium 250 mg capsule 250 mg PO DAILY PRN stool softener 10/29/22 03/05/23 11/01/22 Rx #30 caps elastic bandage 2 X 1.9 yard #10 ea 11/08/22 03/05/23 Unknown Rx gauze bandage 4 X 4 sponge #50 ea 11/08/22 03/05/23 Unknown Rx (Band-Aid Mirasorb Gauze) iodoform 1/4 X 5 yard bandage #12 ea 11/08/22 03/05/23 Unknown Rx amlodipine 10 mg tablet 10 mg PO DAILY@14 03/05/23 03/05/23 03/04/23 History dicyclomine 10 mg capsule 10 mg PO TID PRN Cramps 03/05/23 03/05/23 03/05/23 10:00 History escitalopram oxalate 10 mg tablet 10 mg PO DAILY@14 mental health 03/05/23 03/05/23 03/04/23 History ibuprofen 200 mg tablet 200 mg PO .ONE TIME DOSE 03/05/23 03/05/23 03/04/23 History ondansetron HCl 4 mg tablet 4 mg PO Q8H PRN Nausea And Vomiting 03/05/23 03/05/23 03/05/23 History pantoprazole 40 mg tablet,delayed 40 mg PO DAILY@14 03/05/23 03/05/2303/04/23 History release trazodone 50 mg tablet 50 mg PO BEDTIME 03/05/23 03/05/23 Unknown History Allergies Allergy/AdvReac Type Severity Reaction Status Date / Time prochlorperazine Allergy Intermediate ADR-Irritab Verified 11/26/22 14:09 [From Compazine] le fentanyl Allergy ADR-Nausea Verified 03/05/23 13:58 morphine Allergy ALGY-Difficulty Verified 03/05/23 21:35 Breathing compazine Allergy makes her Uncoded 11/26/22 14:09 want to run PFSH Acute PFSH: Medical History Chronic neck pain Chronic right shoulder pain Cirrhosis of liver History of past hepatitis C that was treated Constipation Degenerative disk disease Depression Diverticulosis of colon Encounter for chronic pain management Generalized anxiety disorder Herniation of left side of L4-L5 intervertebral disc History of 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 infection HTN (hypertension) Opioid contract exists Surgical History History of neck surgery S/P TIPS (transjugular intrahepatic portosystemic shunt) Family History Mother Heart problem Brother Heart problem Social History Smoking and tobacco/nicotine status: never used tobacco/nicotine Second hand smoke exposure: Yes Alcohol intake: never Substance/Drug Use: never Vitals/I&O/Wt Last Vital Signs Temp 97.8 F 03/05/23 21:54 Pulse 67 03/05/23 21:54 Resp 26 H 03/05/23 21:54 BP 156/87 03/05/23 21:54 Pulse Ox 98 03/05/23 21:54 O2 Del Method Non-Rebreather 03/05/23 21:54 O2 Flow Rate 10 03/05/23 21:54 03/05/23 03/05/23 03/05/23 06:59 14:59 22:59 Intake Total 51.28 / 51.28 Output Total 0 / 0 Balance 51.28 / 51.28 Weight last 48 hrs Weight 61.235 kg Physical Exam Narrative: She is alert awake oriented x3 in moderate distress due to abdominal pain Chest clear to auscultation bilaterally Cardiovascular normal heart sounds no murmurs Abdomen soft distended diffusely tender hyperactive bowel sounds present Extremities no edema noted bilaterally lower extremities Data 03/05/23 13:18 03/05/23 13:18 Micro: Microbiology 03/05/23 15:46 Blood Culture - Preliminary Blood SPECIMEN COLLECTED 03/05/23 15:40 Blood Culture - Preliminary Blood SPECIMEN COLLECTED CT Abd/Pel: Radiologist's impression: IMPRESSION: 1. ? There is peripancreatic edema noted. The edema also surrounds the duodenum, and extends into the right and left anterior pararenal spaces. No loculated collection. Differential diagnostic considerations include pancreatitis, versus duodenitis versus duodenal ulcer disease. The edema is new when compared to CT abdomen and pelvis dated 11/03/2021. 2. ? The kidneys are morphologically normal. No nephrolithiasis. No hydronephrosis. No ureteral calculi. No obstructive uropathy. 3. ? Liver configuration is consistent with hepatic cirrhosis. No focal liver lesions are demonstrated. 4. ? Trace ascites in the abdomen and pelvis. 5. ? Small noncalcified gallstones are suspected in the gallbladder lumen. Mild gallbladder wall thickening. No biliary dilatation. 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 X-ray lumbar spine Impression: Degenerative disc narrowing at L3-L4 and L4-L5 with minimal anterior osteophytes. A&P Assessment and plan (1) Acute pancreatitis: Plan 62 year old female with history of hypertension depression insomnia presented with complaint of severe mid back pain followed by abdominal pain since 2 days associated with nausea and was found to have leukocytosis 18.2 lipase of [address] scan consistent with pancreatic inflammation likely secondary to acute pancreatitis Will do IV fluids normal saline at 75 mL/h IV Toradol 15 mg every 8 hours as needed IV Zofran 4 mg every 6 hours as needed IV pantoprazole 20 mg twice a day N.p.o. for now Resume home medications Subcutaneous Lovenox 40 mg daily for DVT prophylaxis She is full code as per discussion with the patient. Attestations Medical Necessity Statement*: She needs less than 2 days of hospitalization. She is here for management of acute pancreatitis with IV fluids and pain control as needed Time Spent in Patient Care: 25 minutes Coding Level of Care Code Acute Code for [facility] Fwd Diagnoses Acute pancreatitis K85.90 Time Spent (min) 25
[2023-03-06] VITALS (9 sets, daily range): BP systolic 119–149; BP diastolic 73–87; PULSE 59–76; RESP 16–18; TEMP 36.4–36.9; O2SAT 97–99
[2023-03-06] MEDS: ketorolac 30 mg/mL INJ 15 MG IVP ×2 (01:06→02:09)
[2023-03-06 05:24] LABS: Hematocrit 39.3 % (36-47); Lymphocytes # 0.6 10^3/uL (0.8-4.8); Lymphocytes % 12.8 %; Mean Corpuscular HGB Conc 32.8 g/dL (30-55); Mean Corpuscular Hemoglobin 27.4 pg (27-33); Mean Corpuscular Volume 83.6 fl (85-98); Mean Platelet Volume 12.4 fL (7.4-10.4); Monocytes # 0.1 10^3/uL (0.2-0.9); Monocytes % 1.6 %; Neutrophils # 4.22 10^3/uL (1.8-7.7); Neutrophils % 85.4 %; Nucleated Red Blood Cells % 0 %; Platelet Count 104 10^3/cmm (157-399); Red Cell Distribution Width 13.2 % (12.1-15.1); White Blood Count 4.94 10^3/uL (3.29-11.43)
[2023-03-06 05:44] LABS: Alanine Aminotransferase 31 U/L (0-33); Albumin Level 4.1 g/dL (3.5-5.2); Alkaline Phosphatase 61 U/L (35-105); Anion Gap 13.2 (5-19); Aspartate Amino Transferase 50 U/L (0-32); Blood Urea Nitrogen 14 mg/dL (8-23); Calcium 9.3 mg/dL (8.5-10.5); Carbon Dioxide 25 mmol/L (22-29); Chloride 107 mmol/L (98-107); Creatinine Clr Calc Pharmacy 74.4286; Globulin 2.9 g/dL (1.3-4.6); Glomerular Filtration Rate 84.5 mL/min (90-130); Glucose 133 mg/dL (65-115); Osmolality Calculated 294 mOsm/kg (285-295); Potassium 4.2 mmol/L (3.5-5.1); Sodium 141 mmol/L (136-145); Total Bilirubin 0.9 mg/dL (0.15-1.2)
--- NOTE | 2023-03-06 07:53 | PC.SOCIAL ---
IMM Update pg 2 of IMM not updated @ this time as patient is currently in observation status.
[2023-03-06] MEDS: pantoprazole 40 mg SDV IVP ×2 (08:51→20:33)
--- NOTE | 2023-03-06 09:26 | PC.CHAP ---
Pastoral Care Encounter/Spiritual Assessment Type of Contact [] Declined technology sales consultant visit [] Patient/Family/Request visit [] Outpatient visit [] Follow-up visit [] Physician referral [] Code/Alert [] Routine visit [] Staff referral [] Actively dying [] Patient sleeping [] Family support [] [] Out of room [] Palliative care [] [x] Receiving care in room [] Pre-surgical visit [] Trauma [] Long length of stay [] ICU visit [] Other: Relational/Emotional Strength [] Patient feels connected with others/family/visitors/staff [] Distress [] Loneliness/isolation [] Abandonment Spirituality of Patient [] Person of [place] [] Attends Pentecostalism of their [place] [] Believes in Prayer [] Reads Bible or Congregation materials [] There are Spiritual issues to be addressed Transliterator 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 [] Prayer [] Active listening [] Non-anxious presence [] Spiritual/emotional support [] Crisis/trauma care [] Spiritual counseling [] Bereavement support [] Provided bereavement packet [] Provided Bible/devotional materials [] Provided toy/stuffed animal, coloring book to patient or family member [] Provided Communion [] Anointing/[place] [] Salvation [] Completed spiritual assessment [] Other: Impact on Illness or Injury [] Angry [] Fearful [] Anxious [] Often cries [] Exhaustion [] Unable to work [] Unable to attend mu-ism [] Unable to walk/stand [] Unable to read [] Unable to drive [] Unable to eat/drink [] Unable to sleep [] Unable to be with family [] Patient intubated [] Other: Summary Time spent with patient
--- NOTE | 2023-03-06 09:58 | PM.PN ---
Subjective Subjective: Admitted overnight. H&P and labs appreciated. Today morning patient states she is feeling slightly better and abdominal pain has improved but still needing pain medications. Denies any further vomiting but has nausea. Stating she wants to try the diet before seeing how she is doing. Denies any headache, chest pain, diarrhea. Blood work appreciated today morning for resolution of leukocytosis with white count down to 4.9, hemoglobin stable at 12.9, CMP showing stable electrolyte, creatinine, AST of 50 with alkaline phosphatase of 61. Events noted earlier today morning when she had possible reaction to IV morphine. Patient states she has never had reaction to morphine in the past. Vitals/I&O/Wt Last Vital Signs Temp 98.3 F 03/06/23 07:36 Pulse 59 L 03/06/23 07:36 Resp 16 03/06/23 07:36 BP 134/81 03/06/23 07:36 Pulse Ox 98 03/06/23 07:36 O2 Del Method Room Air 03/06/23 04:00 O2 Flow Rate 10 03/05/23 21:54 03/05/23 03/06/23 03/06/23 22:59 06:59 14:59 Intake Total 51.28 / 51.28 100 / 151.28 Output Total 0 / 0 Balance 51.28 / 51.28 100 / 151.28 Weight last 48 hrs Weight 61.235 kg Physical Exam Narrative: She is alert awake oriented x3 in moderate distress due to abdominal pain Chest clear to auscultation bilaterally Cardiovascular normal heart sounds no murmurs Abdomen soft distended diffusely tender hyperactive bowel sounds present Extremities no edema noted bilaterally lower extremities Data 03/06/23 05:07 03/06/23 05:07 Other Labs: Radiology Impressions Abdomen/Pelvis CT 03/05/23 14:47 IMPRESSION: 1. There is peripancreatic edema noted. The edema also surrounds the duodenum, and extends into the right and left anterior pararenal spaces. No loculated collection. Differential diagnostic considerations include pancreatitis, versus duodenitis versus duodenal ulcer disease. The edema is new when compared to CT abdomen and pelvis dated 11/03/2021. 2. The kidneys are morphologically normal. No nephrolithiasis. No hydronephrosis. No ureteral calculi. No obstructive uropathy. 3. Liver configuration is consistent with hepatic cirrhosis. No focal liver lesions are demonstrated. 4. Trace ascites in the abdomen and pelvis. 5. Small noncalcified gallstones are suspected in the gallbladder lumen. Mild gallbladder wall thickening. No biliary dilatation. Laboratory Results WBC 4.94 10^3/uL (3.29-11.43) 03/06/23 05:07 RBC 4.70 10^6/uL (3.85-5.65) 03/06/23 05:07 Hgb 12.90 g/dL (11.27-16.99) 03/06/23 05:07 Hct 39.3 % (36-47) 03/06/23 05:07 MCV 83.6 fl (85-98) L 03/06/23 05:07 MCH 27.4 pg (27-33) 03/06/23 05:07 MCHC 32.8 g/dL (30-55) 03/06/23 05:07 RDW 13.2 % (12.1-15.1) 03/06/23 05:07 Plt Count 104 10^3/cmm (157-399) L D 03/06/23 05:07 MPV 12.4 fL (7.4-10.4) H 03/06/23 05:07 Neut % (Auto) 85.4 % 03/06/23 05:07 Lymph % (Auto) 12.8 % 03/06/23 05:07 [place] % (Auto) 1.6 % 03/06/23 05:07 Eos % (Auto) 0.0 % 03/06/23 05:07 Baso % (Auto) 0.0 % 03/06/23 05:07 Neut # (Auto) 4.22 10^3/uL (1.8-7.7) 03/06/23 05:07 Lymph # (Auto) 0.6 10^3/uL (0.8-4.8) L 03/06/23 05:07 [place] # (Auto) 0.1 10^3/uL (0.2-0.9) L 03/06/23 05:07 Eos # (Auto) 0.0 10^3/uL (0.0-0.8) 03/06/23 05:07 Baso # (Auto) 0.0 10^3/uL (0.0-0.1) 03/06/23 05:07 Nucleated RBC % (auto) 0 % 03/06/23 05:07 Nucleated RBCs # 0.0 /100WBC 03/06/23 05:07 Sodium 141 mmol/L (136-145) 03/06/23 05:07 Potassium 4.2 mmol/L (3.5-5.1) 03/06/23 05:07 Chloride 107 mmol/L (98-107) 03/06/23 05:07 Carbon Dioxide 25 mmol/L (22-29) 03/06/23 05:07 Anion Gap 13.2 (5-19) 03/06/23 05:07 BUN 14 mg/dL (8-23) 03/06/23 05:07 Creatinine 0.7 mg/dL (0.5-0.9) 03/06/23 05:07 GFR Calculation 84.5 mL/min (90-130) L 03/06/23 05:07 Glucose 133 mg/dL (65-115) H 03/06/23 05:07 Calculated Osmolality 294 mOsm/kg (285-295) 03/06/23 05:07 Lactic Acid 1.8 mmol/L (0.5-2.2) 03/05/23 15:40 Calcium 9.3 mg/dL (8.5-10.5) 03/06/23 05:07 Total Bilirubin 0.9 mg/dL (0.15-1.2) 03/06/23 05:07 AST 50 U/L (0-32) H 03/06/23 05:07 ALT 31 U/L (0-33) 03/06/23 05:07 Alkaline Phosphatase 61 U/L (35-105) 03/06/23 05:07 Total Protein 7.0 g/dL (6.6-8.7) 03/06/23 05:07 Albumin 4.1 g/dL (3.5-5.2) 03/06/23 05:07 Globulin 2.9 g/dL (1.3-4.6) 03/06/23 05:07 Lipase 4265 U/L (13-60) H 03/05/23 15:40 Procalcitonin 0.16 ng/mL (0-0.5) 03/05/23 15:40 Urine Color Dark yellow (Yellow) 03/05/23 14:10 Urine Appearance Hazy (CLEAR) A 03/05/23 14:10 Urine pH 6 (5-7) 03/05/23 14:10 Ur Specific [place] 1.025 (1.005-1.030) 03/05/23 14:10 Urine Protein Neg (Negative) 03/05/23 14:10 Urine Glucose (UA) Norm (Normal) 03/05/23 14:10 Urine Ketones Negative (Negative) 03/05/23 14:10 Urine Blood Neg (Negative) 03/05/23 14:10 Urine Nitrate Negative (Negative) 03/05/23 14:10 Urine Bilirubin 1+ (Negative) H 03/05/23 14:10 Urine Urobilinogen 4 mg/dL (Negative) H 03/05/23 14:10 Ur Leukocyte Esterase Negative (Negative) 03/05/23 14:10 Urine RBC 0-4 /hpf (0-2) H 03/05/23 14:10 Urine WBC 5-10 /hpf (0-5) H 03/05/23 14:10 Ur Squamous Epith Cells 5-10 /hpf (0-5) H 03/05/23 14:10 Calcium Oxalate Crystal T /hpf 03/05/23 14:10 Amorphous Sediment Not Reportable 03/05/23 14:10 Urine Bacteria Trace /hpf (NONE) 03/05/23 14:10 Urine Mucus 3+ /hpf 03/05/23 14:10 Urine Yeast Trace /hpf 03/05/23 14:10 Urine Opiates Screen Negative ng/mL (Negative) 03/05/23 14:10 Ur Barbiturates Screen Negative ng/mL (Negative) 03/05/23 14:10 Ur Phencyclidine Scrn Negative ng/mL (Negative) 03/05/23 14:10 Ur Amphetamines Screen Negative ng/mL (Negative) 03/05/23 14:10 U Benzodiazepines Scrn Negative ng/mL (Negative) 03/05/23 14:10 Urine Cocaine Screen Negative ng/mL (Negative) 03/05/23 14:10 U Marijuana (THC) Screen Positive ng/mL (Negative) H 03/05/23 14:10 Micro: Microbiology 03/05/23 15:46 Blood Culture - Preliminary Blood SPECIMEN COLLECTED 03/05/23 15:40 Blood Culture - Preliminary Blood SPECIMEN COLLECTED A&P Assessment and plan (1) Acute pancreatitis: Plan 62 year old female with history of hypertension depression insomnia presented with complaint of severe mid back pain followed by abdominal pain since 2 days associated with nausea and was found to have leukocytosis 18.2 lipase of [address] scan consistent with pancreatic inflammation likely secondary to acute pancreatitis Could be most likely in setting of gallstone passing causing mild obstruction which is relieved now. Abnormal imaging consistent with multiple tiny gallstones without CBD dilatation. Continue with IV hydration. Conservative treatment. Advance to clear liquid diet. For pain control start patient on 0.2 IV Dilaudid every 4 hours as needed. Protonix daily, Zofran as needed. Continue other chronic oral medications. Hypertension: Goal blood pressure less than 140/90 mmHg. Continue with home dose of amlodipine. Leukocytosis has resolved, no active fever. Hold off on any antibiotics. Low concern for bacterial superimposed infection. Continue other chronic oral medications. Full code Clear liquid diet Lovenox for DVT prophylaxis Protonix will suffice as PUD prophylaxis. Attestations Medical Necessity Statement*: Requires further hospitalization for management of acute pancreatitis requiring IV pain medications as a trial of diet is soft. Diagnoses Acute pancreatitis K85.90
[2023-03-06] MEDS: HYDROmorphone 1 mg/mL INJ 1 mL 0.2 MG IVP ×3 (11:28→20:34)
[2023-03-06] MEDS: ondansetron 2 mg/ML SDV 2 mL 4 MG IVP (12:53)
[2023-03-06] MEDS: escitalopram 10 mg Tablet PO (14:57)
[2023-03-06] MEDS: amlodipine 10 mg Tablet PO (14:57)
[2023-03-06] MEDS: sodium chloride 0.9% 1,000 ML 75 ML IV (16:11)
--- NOTE | 2023-03-06 21:34 | PC.NURSE ---
pt refused Lovenox injection, instructed patient on risks and benefits on injection while in the hospital.
[2023-03-07] VITALS (9 sets, daily range): BP systolic 110–139; BP diastolic 56–75; PULSE 59–62; RESP 16–18; TEMP 36.6–36.8; O2SAT 96–100
[2023-03-07] MEDS: HYDROmorphone 1 mg/mL INJ 1 mL 0.2 MG IVP ×4 (02:12→18:35)
[2023-03-07 04:37] LABS: Basophils % 0.3 %; Eosinophils # 0.1 10^3/uL (0.0-0.8); Hematocrit 37.5 % (36-47); Lymphocytes # 1.4 10^3/uL (0.8-4.8); Mean Corpuscular HGB Conc 32.3 g/dL (30-55); Mean Corpuscular Hemoglobin 27.1 pg (27-33); Mean Corpuscular Volume 84.1 fl (85-98); Mean Platelet Volume 12.6 fL (7.4-10.4); Monocytes # 0.6 10^3/uL (0.2-0.9); Monocytes % 9.2 %; Neutrophils # 3.94 10^3/uL (1.8-7.7); Neutrophils % 66.2 %; Nucleated Red Blood Cells % 0 %; Platelet Count 103 10^3/cmm (157-399); Red Blood Count 4.46 10^6/uL (3.85-5.65); Red Cell Distribution Width 13.3 % (12.1-15.1); White Blood Count 5.96 10^3/uL (3.29-11.43)
[2023-03-07 05:08] LABS: Alanine Aminotransferase 20 U/L (0-33); Albumin Level 3.6 g/dL (3.5-5.2); Alkaline Phosphatase 52 U/L (35-105); Anion Gap 11.4 (5-19); Aspartate Amino Transferase 25 U/L (0-32); Blood Urea Nitrogen 9 mg/dL (8-23); Calcium 8.5 mg/dL (8.5-10.5); Carbon Dioxide 26 mmol/L (22-29); Chloride 109 mmol/L (98-107); Globulin 2.7 g/dL (1.3-4.6); Glomerular Filtration Rate 124.6 mL/min (90-130); Glucose 88 mg/dL (65-115); Osmolality Calculated 294 mOsm/kg (285-295); Potassium 3.4 mmol/L (3.5-5.1); Sodium 143 mmol/L (136-145); Total Bilirubin 0.6 mg/dL (0.15-1.2); Total Protein 6.3 g/dL (6.6-8.7)
[2023-03-07] MEDS: sodium chloride 0.9% 1,000 ML 75 ML IV ×2 (05:33→19:55)
[2023-03-07] MEDS: pantoprazole 40 mg SDV IVP ×2 (09:04→21:54)
[2023-03-07] MEDS: amlodipine 10 mg Tablet PO (14:28)
[2023-03-07] MEDS: escitalopram 10 mg Tablet PO (14:29)
--- NOTE | 2023-03-07 16:27 | PM.PN ---
Subjective Subjective: No acute events overnight. Patient denies any vomiting but does complain of mild nausea with meals. Asking if she can go to more solid diet. States still has abdominal pain. Otherwise has remained hemodynamically stable and afebrile. Blood work appreciated for stable CBC, platelet count down to 103, CMP showing potassium of 3.4 Vitals/I&O/Wt Last Vital Signs Temp 98.2 F 03/07/23 15:33 Pulse 62 03/07/23 15:33 Resp 18 03/07/23 15:33 BP 114/70 03/07/23 15:33 Pulse Ox 96 03/07/23 15:33 O2 Del Method Room Air 03/07/23 15:33 O2 Flow Rate 10 03/05/23 21:54 03/07/23 03/07/23 03/07/23 06:59 14:59 22:59 Intake Total 1000 / 2140 360 / 360 Balance 1000 / 2140 360 / 360 Physical Exam Narrative: She is alert awake oriented x3 in mild distress due to abdominal pain, better than yesterday Chest clear to auscultation bilaterally Cardiovascular normal heart sounds no murmurs Abdomen soft distended diffusely tender hyperactive bowel sounds present Extremities no edema noted bilaterally lower extremities Data 03/07/23 03:54 03/07/23 03:54 Micro: Microbiology 03/05/23 14:10 Urine Culture - Final Urine,Clean Catch 03/05/23 15:46 Blood Culture - Preliminary Blood NEGATIVE TO DATE 03/05/23 15:40 Blood Culture - Preliminary Blood NEGATIVE TO DATE A&P Assessment and plan (1) Acute pancreatitis: Plan 62 year old female with history of hypertension depression insomnia presented with complaint of severe mid back pain followed by abdominal pain since 2 days associated with nausea and was found to have leukocytosis 18.2 lipase of [address] scan consistent with pancreatic inflammation likely secondary to acute pancreatitis Could be most likely in setting of gallstone passing causing mild obstruction which is relieved now. Abnormal imaging consistent with multiple tiny gallstones without CBD dilatation. Continue with IV hydration. Conservative treatment. Advance to clear liquid diet. For pain control start patient on 0.2 IV Dilaudid every 4 hours as needed. Protonix daily, Zofran as needed. Continue other chronic oral medications. Hypertension: Goal blood pressure less than 140/90 mmHg. Continue with home dose of amlodipine. Leukocytosis has resolved, no active fever. Hold off on any antibiotics. Low concern for bacterial superimposed infection. Continue other chronic oral medications. Plan for the day: Advance to full liquid diet. Change pain medication to Dilaudid 0.2 every 6 hourly as needed. Needed 3 doses of Dilaudid yesterday and throughout the day today morning. Continue Protonix and Zofran. Repeat CBC, CMP and lipase in AM. Continue to hold off on antibiotics. Leukocytosis resolved. Again counseled in detail to patient about multiple slow small meals. Discharge plan: Most likely discharge within next 24 hours to home on full liquid diet with advised to advance diet very gradually to mechanical soft and regular within next 2 weeks. Most likely will give referral for surgery within next 2 weeks for possible cholecystectomy. Full code Clear liquid diet Lovenox for DVT prophylaxis Protonix will suffice as PUD prophylaxis. Attestations Medical Necessity Statement*: Requires further hospitalization for management of acute pancreatitis most likely in setting of gallstones Patient's diet is advanced and patient requiring IV pain medications. Diagnoses Acute pancreatitis K85.90
[2023-03-07] MEDS: ondansetron 2 mg/ML SDV 2 mL 4 MG IVP (19:52)
[2023-03-07 21:32] LABS: Free T4 Free Thyroxine 1.06 ng/dL (0.82-1.77); Thyroid Stimulating Hormone 2.13 uIU/mL (0.27-4.20)
--- NOTE | 2023-03-07 22:16 | PC.NURSE ---
Medication refusal Patient refused Lovenox injection this evening, pt educated on indications, risks, and benefits of the medication. Patient adamantly refused. Medication returned to the [facility] and night time hospitalist notified.
[2023-03-08] VITALS (7 sets, daily range): BP systolic 114–133; BP diastolic 69–84; PULSE 59–67; RESP 16–18; TEMP 36.6–37.1; O2SAT 99
[2023-03-08] MEDS: HYDROmorphone 1 mg/mL INJ 1 mL 0.2 MG IVP ×2 (00:46→07:51)
[2023-03-08 04:51] LABS: Basophils % 0.7 %; Eosinophils # 0.1 10^3/uL (0.0-0.8); Eosinophils % 3.4 %; Hematocrit 36.3 % (36-47); Lymphocytes % 24.3 %; Mean Corpuscular HGB Conc 32.8 g/dL (30-55); Mean Corpuscular Hemoglobin 27.4 pg (27-33); Mean Corpuscular Volume 83.6 fl (85-98); Mean Platelet Volume 12.3 fL (7.4-10.4); Monocytes # 0.4 10^3/uL (0.2-0.9); Monocytes % 9.4 %; Neutrophils # 2.57 10^3/uL (1.8-7.7); Nucleated Red Blood Cells % 0 %; Platelet Count 119 10^3/cmm (157-399); Red Blood Count 4.34 10^6/uL (3.85-5.65); Red Cell Distribution Width 13.2 % (12.1-15.1); White Blood Count 4.15 10^3/uL (3.29-11.43)
[2023-03-08 05:09] LABS: Alanine Aminotransferase 14 U/L (0-33); Albumin Level 3.4 g/dL (3.5-5.2); Alkaline Phosphatase 49 U/L (35-105); Anion Gap 12.3 (5-19); Aspartate Amino Transferase 17 U/L (0-32); Blood Urea Nitrogen 4 mg/dL (8-23); Calcium 8.6 mg/dL (8.5-10.5); Carbon Dioxide 24 mmol/L (22-29); Chloride 109 mmol/L (98-107); Globulin 2.7 g/dL (1.3-4.6); Glucose 106 mg/dL (65-115); Osmolality Calculated 291 mOsm/kg (285-295); Potassium 3.3 mmol/L (3.5-5.1); Sodium 142 mmol/L (136-145); Total Bilirubin 0.6 mg/dL (0.15-1.2); Total Protein 6.1 g/dL (6.6-8.7)
[2023-03-08 05:16] LABS: Lipase 1260 U/L (13-60)
[2023-03-08] MEDS: pantoprazole 40 mg SDV IVP (08:53)
[2023-03-08] MEDS: ondansetron 2 mg/ML SDV 2 mL 4 MG IVP (08:54)
--- NOTE | 2023-03-08 11:07 | P.DS_ITS ---
Discharge Providers Date of Admission: 03/05/23 18:10 Date of Discharge: March 08, 2023 Attending Provider at Admission: Elan Rizzo MD Attending Provider at Discharge: Elan Rizzo MD Primary Care Provider: Darius Marie MD Diagnoses at Discharge Discharge Diagnosis (1) Acute pancreatitis: Status: Acute Reason for Visit Reason for Visit: back pain Brief History: History as per HPI: Stella Covarrubias is a 62 year old female with history of hypertension depressi on insomnia presented with complaint of severe mid back pain followed by abdominal pain since 2 days.? She describes pain as 10 out of 10 crampy generalized no aggravating or relieving factors and associated with nausea and mid back.? There is no history of fever cold cough diarrhea chest pain or urinary symptoms. As per the patient she had abdominal pain off and on since last few months but got aggravated since last 2 days.? She never had similar complaints in the past.? She does not smoke and does not use alcohol. Hospital Course Hospital Course Patient was admitted to hospital further evaluation and management of pancreatitis. She was treated conservatively with IV hydration because of poor oral intake, IV pain medication and was kept NPO. Diet was advanced gradually. She is able to tolerate full liquid diet for last 24 hours. She has been discharged in hemodynamically stable condition advised to follow-up with her primary care provider within next 10 days. She is to follow-up with surgery in the next 2 weeks for possible cholecystectomy. It is believed her pancreatitis is most likely in setting of passed out gallstone. Physical Exam Narrative: She is alert awake oriented x3 in mild distress due to abdominal pain, better than yesterday Chest clear to auscultation bilaterally Cardiovascular normal heart sounds no murmurs Abdomen soft distended diffusely tender hyperactive bowel sounds present Extremities no edema noted bilaterally lower extremities Discharge Data Studies Completed and Pending Completed Studies During Hospitalization Category Date Time Status CT abdomen renal stone [CT kidney stone [id number]] Stat Cat Scan 03/05/23 14:47 Completed XR lumbar spine 2-3V* [id number] Stat Exams 03/05/23 13:09 Completed XR thoracic spine 3V* [id number] Stat Exams 03/05/23 13:09 Completed Pending at discharge Category Date Time Status Blood Culture Stat Lab 03/05/23 15:46 Results Radiology Impressions Abdomen/Pelvis CT 03/05/23 14:47 IMPRESSION: 1. There is peripancreatic edema noted. The edema also surrounds the duodenum, and extends into the right and left anterior pararenal spaces. No loculated collection. Differential diagnostic considerations include pancreatitis, versus duodenitis versus duodenal ulcer disease. The edema is new when compared to CT abdomen and pelvis dated 11/03/2021. 2. The kidneys are morphologically normal. No nephrolithiasis. No hydronephrosis. No ureteral calculi. No obstructive uropathy. 3. Liver configuration is consistent with hepatic cirrhosis. No focal liver lesions are demonstrated. 4. Trace ascites in the abdomen and pelvis. 5. Small noncalcified gallstones are suspected in the gallbladder lumen. Mild gallbladder wall thickening. No biliary dilatation. Laboratory Results WBC 4.15 10^3/uL (3.29-11.43) 03/08/23 04:25 RBC 4.34 10^6/uL (3.85-5.65) 03/08/23 04:25 Hgb 11.90 g/dL (11.27-16.99) 03/08/23 04:25 Hct 36.3 % (36-47) 03/08/23 04:25 MCV 83.6 fl (85-98) L 03/08/23 04:25 MCH 27.4 pg (27-33) 03/08/23 04:25 MCHC 32.8 g/dL (30-55) 03/08/23 04:25 RDW 13.2 % (12.1-15.1) 03/08/23 04:25 Plt Count 119 10^3/cmm (157-399) L 03/08/23 04:25 MPV 12.3 fL (7.4-10.4) H 03/08/23 04:25 Neut % (Auto) 62.0 % 03/08/23 04:25 Lymph % (Auto) 24.3 % 03/08/23 04:25 [place] % (Auto) 9.4 % 03/08/23 04:25 Eos % (Auto) 3.4 % 03/08/23 04:25 Baso % (Auto) 0.7 % 03/08/23 04:25 Neut # (Auto) 2.57 10^3/uL (1.8-7.7) 03/08/23 04:25 Lymph # (Auto) 1.0 10^3/uL (0.8-4.8) 03/08/23 04:25 [place] # (Auto) 0.4 10^3/uL (0.2-0.9) 03/08/23 04:25 Eos # (Auto) 0.1 10^3/uL (0.0-0.8) 03/08/23 04:25 Baso # (Auto) 0.0 10^3/uL (0.0-0.1) 03/08/23 04:25 Nucleated RBC % (auto) 0 % 03/08/23 04:25 Nucleated RBCs # 0.0 /100WBC 03/08/23 04:25 Sodium 142 mmol/L (136-145) 03/08/23 04:25 Potassium 3.3 mmol/L (3.5-5.1) L 03/08/23 04:25 Chloride 109 mmol/L (98-107) H 03/08/23 04:25 Carbon Dioxide 24 mmol/L (22-29) 03/08/23 04:25 Anion Gap 12.3 (5-19) 03/08/23 04:25 BUN 4 mg/dL (8-23) L 03/08/23 04:25 Creatinine 0.6 mg/dL (0.5-0.9) 03/08/23 04:25 GFR Calculation 101.0 mL/min (90-130) 03/08/23 04:25 Glucose 106 mg/dL (65-115) 03/08/23 04:25 Calculated Osmolality 291 mOsm/kg (285-295) 03/08/23 04:25 Lactic Acid 1.8 mmol/L (0.5-2.2) 03/05/23 15:40 Calcium 8.6 mg/dL (8.5-10.5) 03/08/23 04:25 Total Bilirubin 0.6 mg/dL (0.15-1.2) 03/08/23 04:25 AST 17 U/L (0-32) 03/08/23 04:25 ALT 14 U/L (0-33) 03/08/23 04:25 Alkaline Phosphatase 49 U/L (35-105) 03/08/23 04:25 Total Protein 6.1 g/dL (6.6-8.7) L 03/08/23 04:25 Albumin 3.4 g/dL (3.5-5.2) L 03/08/23 04:25 Globulin 2.7 g/dL (1.3-4.6) 03/08/23 04:25 Lipase 1260 U/L (13-60) H 03/08/23 04:25 Procalcitonin 0.16 ng/mL (0-0.5) 03/05/23 15:40 TSH 2.13 uIU/mL (0.27-4.20) 03/07/23 03:54 Free T4 1.06 ng/dL (0.82-1.77) 03/07/23 03:54 Urine Color Dark yellow (Yellow) 03/05/23 14:10 Urine Appearance Hazy (CLEAR) A 03/05/23 14:10 Urine pH 6 (5-7) 03/05/23 14:10 Ur Specific [place] 1.025 (1.005-1.030) 03/05/23 14:10 Urine Protein Neg (Negative) 03/05/23 14:10 Urine Glucose (UA) Norm (Normal) 03/05/23 14:10 Urine Ketones Negative (Negative) 03/05/23 14:10 Urine Blood Neg (Negative) 03/05/23 14:10 Urine Nitrate Negative (Negative) 03/05/23 14:10 Urine Bilirubin 1+ (Negative) H 03/05/23 14:10 Urine Urobilinogen 4 mg/dL (Negative) H 03/05/23 14:10 Ur Leukocyte Esterase Negative (Negative) 03/05/23 14:10 Urine RBC 0-4 /hpf (0-2) H 03/05/23 14:10 Urine WBC 5-10 /hpf (0-5) H 03/05/23 14:10 Ur Squamous Epith Cells 5-10 /hpf (0-5) H 03/05/23 14:10 Calcium Oxalate Crystal T /hpf 03/05/23 14:10 Amorphous Sediment Not Reportable 03/05/23 14:10 Urine Bacteria Trace /hpf (NONE) 03/05/23 14:10 Urine Mucus 3+ /hpf 03/05/23 14:10 Urine Yeast Trace /hpf 03/05/23 14:10 Urine Opiates Screen Negative ng/mL (Negative) 03/05/23 14:10 Ur Barbiturates Screen Negative ng/mL (Negative) 03/05/23 14:10 Ur Phencyclidine Scrn Negative ng/mL (Negative) 03/05/23 14:10 Ur Amphetamines Screen Negative ng/mL (Negative) 03/05/23 14:10 U Benzodiazepines Scrn Negative ng/mL (Negative) 03/05/23 14:10 Urine Cocaine Screen Negative ng/mL (Negative) 03/05/23 14:10 U Marijuana (THC) Screen Positive ng/mL (Negative) H 03/05/23 14:10 Vitals Last Vital Signs Temp 97.9 F 03/08/23 07:39 Pulse 59 L 03/08/23 07:39 Resp 18 03/08/23 07:51 BP 114/69 03/08/23 07:39 Pulse Ox 99 03/08/23 07:51 O2 Del Method Room Air 03/08/23 07:39 O2 Flow Rate 10 03/05/23 21:54 Discharge Plan Discharge Patient Disposition: Home Condition: Stable Prescriptions: New tramadol 50 mg tablet 50 mg PO Q8H PRN (Reason: pain) Qty: 15 0RF Continued acetaminophen 500 mg tablet 500 mg PO Q6H PRN (Reason: Pain) Qty: 100 3RF docusate sodium 250 mg capsule 250 mg PO DAILY PRN (Reason: stool softener) Qty: 30 5RF trazodone 50 mg tablet 50 mg PO BEDTIME Rx Instructions: not started as of 03/05/23 ondansetron HCl 4 mg tablet 4 mg PO Q8H PRN (Reason: Nausea And Vomiting) amlodipine 10 mg tablet 10 mg PO DAILY@14 pantoprazole 40 mg tablet,delayed release (DR/EC) 40 mg PO DAILY@14 dicyclomine 10 mg capsule 10 mg PO TID PRN (Reason: Cramps) escitalopram oxalate 10 mg tablet 10 mg PO DAILY@14 (DME) iodoform 1/4 X 5 -yard bandage See Rx Instructions .Route Qty: 12 2RF Rx Instructions: As directed (DME) Band-Aid Mirasorb Gauze 4 X 4 sponge See Rx Instructions .Route Qty: 50 2RF Rx Instructions: As directed (DME) elastic bandage 2 X 1.9 -yard bandage See Rx Instructions .Route Qty: 10 2RF Rx Instructions: As directed Discontinued ibuprofen 200 mg Tablet 200 mg PO .ONE TIME DOSE Discharge Orders: Discharge Order (Routine); Ordered 03/08/23 Ordered By: Elan Rizzo Referrals: Mehdi Brooks DO [Physician] - 2 weeks (Cholecystectomy given gall stone pancreatitis) Darius Marie MD [Primary Care Provider] - 1-3 days (We have notified your physician's clinic of the need for a follow-up appointment to be scheduled. If you have not heard from them within the next 2 business days, please call them directly. You may also reach out to our forestry and wildlife manager at [phone] and she can assist you.) Discharge Diet: As Directed, GI Soft and Full LIquid Discharge Activity: Resume usual activity and Increase activity as tolerated Patient Instructions: Tramadol (By mouth) (Ultram, Ultram ER, [place], Theratramadol-60, Qdolo), Pancreatitis (DC), Opioid Safety Activity Restrictions/Additional Instructions: Continue with full liquid diet for next 3 to 4 days and advance to mechanical soft within next 7 days and to a regular diet within next 10 days. Neck Please follow-up with your primary care provider within next 10 days. You should make an appointment to see surgeon for possible cholecystectomy given concerns for multiple gallstones which puts you at a higher risk of cholecystitis or further pancreatitis. Discharge Attestations Time Spent in Discharge Care*: greater than 30 min Specific Discharge Activities: educating patient, discussing with pcp/other providers, discussing with case liner/social workers/dc planners, documenting/other paperwork and evaluating patient/reviewing data Status at Discharge: Cognitive status at discharge: cognitively intact , Behavioral status at discharge: cooperative , Functional status at discharge: independent ambulation , Overall status at discharge: patient is back to baseline Quality Metrics Clinical Quality Measures [ No reported AMI, CVA or VTE this stay] Coding Level of Care Code 53163 Total time (in minutes) for Discharge: 60 Diagnoses Acute pancreatitis K85.90
== END 2023-03-08 12:37 | disposition home or self-care (01) ==
LOC: ER 18:34 → MEDSURG 19:00
PROVIDERS: Admitting Provider Student in an Organized Health Care Education/Training Program; Emergency Provider Internal Medicine; PCP Family Medicine; Visit Provider Student in an Organized Health Care Education/Training Program
DX: K85.90 Acute pancreatitis without necrosis or infection, unspecified (principal); I10 Essential (primary) hypertension; F32.A Depression, unspecified; D72.829 Elevated white blood cell count, unspecified; Z86.19 Personal history of other infectious and parasitic diseases; F41.1 Generalized anxiety disorder; R10.9 Unspecified abdominal pain; M19.90 Unspecified osteoarthritis, unspecified site; M54.6 Pain in thoracic spine; M54.50 Low back pain, unspecified
CPT/HCPCS: 36415; 72072; 72100; 74176; 80053; 80306; 81001; 83605; 83690; 84145; 84439; 84443; 85025; 87040; 87086; 96365; 96375; 96376; 99285; C9113; G0378; J1170; J1200; J1650; J1885; J2270; J2405; J2543; J2930; J7030

== ENCOUNTER 2023-03-24 12:35 | Inpatient (IN) | payer MEDICARE, MEDICAID, SELFPAY ==
[2023-03-24] VITALS (8 sets, daily range): BP systolic 108–126; BP diastolic 53–71; PULSE 59–80; RESP 17–18; TEMP 36.4–36.9; O2SAT 97; BMI 23.1
--- NOTE | 2023-03-24 12:42 | ED_ITS ---
HPI - Abdominal Pain General: Chief Complaint: Abdominal Pain Stated Complaint: Abd Pain Time Seen by Provider: 03/24/23 12:36 Source: patient Mode of arrival: ambulatory History of Present Illness: 62-year-old female who presents to the emergency room with complaints of right upper quadrant abdominal pain. This has been going on for several months she has had problems with pancreatitis there was a question of sludge on gallbladder and a previous imaging study and ultrasound. She was referred to see general surgery but has not been there yet. She does not remember eating anything that seem to trigger this. Her symptoms today began around 9 AM and were worsening she does have some mild cirrhosis of the liver based on previous imaging studies. MD elicited complaint: abdominal pain Onset (ago): month(s) Pain Consistency: intermittent Severity: mild Quality: cramping Radiation: none Exacerbating factors: nothing Relieving factors: nothing Associated Symptoms: Reports GI cramping, nausea and poor appetite; Denies anorexia, belching, bloating, change in bowel habits, change in stool character, chills, coffee ground emesis, constipation, diarrhea, dyspepsia, d ysuria, excessive flatus, fever(s), heartburn, hematochezia, hematuria, hematemesis, fecal incontinence, loose stools, melena, syncope and vomiting Review of Systems Const: Reports: change in appetite; Denies: fever(s) or chills Card: Denies: chest pain or syncope Resp: Denies: dyspnea GI: Reports: abdominal pain, nausea and GI cramping; Denies: vomiting, hematemesis, coffee ground emesis, heartburn, diarrhea, constipation, bloating, belching, excessive flatus, fecal incontinence, change in bowel habits, change in stool character, hematochezia or melena : Denies: dysuria, urinary frequency, urinary urgency or hematuria Musc: Denies: neck pain or back pain Skin/Breast: Denies: rash PFSH ED PFSH: Medical History FABIAN (acute kidney injury) Basal cell carcinoma (BCC) Cellulitis Cervical radiculopathy Chronic neck pain Chronic right shoulder pain Cirrhosis of liver History of past hepatitis C that was treated Constipation Degenerative disk disease Depression Diverticulosis of colon Encounter for chronic pain management Generalized anxiety disorder Herniation of left side of L4-L5 intervertebral disc History of 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 infection HTN (hypertension) Olecranon bursitis of right elbow Opioid contract exists Post op infection Postoperative wound cellulitis Renal mass Surgical History History of neck surgery S/P TIPS (transjugular intrahepatic portosystemic shunt) Family History Mother Heart problem Brother Heart problem Social History Smoking and tobacco/nicotine status: never used tobacco/nicotine Second hand smoke exposure: Yes Alcohol intake: never Substance/Drug Use: never Physical Exam Const: GENERAL APPEARANCE: cooperative and comfortable ORIENTATION/CONSCIOUSNESS: Yes awake, Yes oriented to person, Yes oriented to place and Yes oriented to time HENMT: COMMON NORMALS: normocephalic, atraumatic and hearing grossly normal bilaterally HEAD & SCALP: normocephalic and atraumatic Resp: COMMON NORMALS: normal respiratory effort, No retractions, No use of accessory muscles and clear to auscultation bilaterally AUSCULTATION: clear to auscultation bilaterally Cardio: COMMON NORMALS: regular rate, regular rhythm and No murmurs present (Cardio) RATE: regular rate RHYTHM: regular rhythm GI: COMMON NORMALS: Soft to palpation and No hepatosplenomegaly present AUSCULTATION: Yes normoactive bowel sounds PALPATION: Yes Soft to palpation, Yes Tenderness to palpation present (GI) Details: RUQ, No Guarding due to palpation present (GI) and Yes No hepatosplenomegaly present Extremity: COMMON NORMALS: normal to inspection, capillary refill normal, no clubbing, cyanosis or edema, no calf tenderness and no pedal edema Neuro: SENSORIUM/ORIENTATION: Yes oriented to person, Yes oriented to place and Yes oriented to time Skin: COMMON NORMALS: no rashes or lesions noted GENERAL SKIN EXAM: no rashes or lesions noted Course Vital Signs: Vital signs: Vital Signs Temperature 98.3 F 03/24/23 12:39 Pulse Rate 59 L 03/24/23 12:39 Respiratory Rate 18 03/24/23 12:39 Blood Pressure 109/53 03/24/23 12:39 Pulse Oximetry 97 03/24/23 12:39 Oxygen Delivery Me thod Room Air 03/24/23 12:39 MDM - Abdominal Pain Medical Decision Making Acute pancreatitis triglycerides pending we will admit IV fluids pain and nausea medications supportive care discussed with hospitalist orders written Medical Records I reviewed the patient's medical records. Lab Data I reviewed the patient's lab results. 03/24/23 12:50 03/24/23 12:50 Labs/Radiology: Laboratory Results WBC 7.29 10^3/uL (3.29-11.43) 03/24/23 12:50 RBC 5.05 10^6/uL (3.85-5.65) 03/24/23 12:50 Hgb 13.80 g/dL (11.27-16.99) 03/24/23 12:50 Hct 42.2 % (36-47) 03/24/23 12:50 MCV 83.6 fl (85-98) L 03/24/23 12:50 MCH 27.3 pg (27-33) 03/24/23 12:50 MCHC 32.7 g/dL (30-55) 03/24/23 12:50 RDW 13.3 % (12.1-15.1) 03/24/23 12:50 Plt Count 166 10^3/cmm (157-399) 03/24/23 12:50 MPV 11.9 fL (7.4-10.4) H 03/24/23 12:50 Neut % (Auto) 64.9 % 03/24/23 12:50 Lymph % (Auto) 26.5 % 03/24/23 12:50 [place] % (Auto) 4.9 % 03/24/23 12:50 Eos % (Auto) 2.9 % 03/24/23 12:50 Baso % (Auto) 0.5 % 03/24/23 12:50 Neut # (Auto) 4.73 10^3/uL (1.8-7.7) 03/24/23 12:50 Lymph # (Auto) 1.9 10^3/uL (0.8-4.8) 03/24/23 12:50 [place] # (Auto) 0.4 10^3/uL (0.2-0.9) 03/24/23 12:50 Eos # (Auto) 0.2 10^3/uL (0.0-0.8) 03/24/23 12:50 Baso # (Auto) 0.0 10^3/uL (0.0-0.1) 03/24/23 12:50 Nucleated RBC % (auto) 0 % 03/24/23 12:50 Nucleated RBCs # 0.0 /100WBC 03/24/23 12:50 Sodium 140 mmol/L (136-145) 03/24/23 12:50 Potassium 4.1 mmol/L (3.5-5.1) 03/24/23 12:50 Chloride 106 mmol/L (98-107) 03/24/23 12:50 Carbon Dioxide 25 mmol/L (22-29) 03/24/23 12:50 Anion Gap 13.1 (5-19) 03/24/23 12:50 BUN 8 mg/dL (8-23) 03/24/23 12:50 Creatinine 0.5 mg/dL (0.5-0.9) 03/24/23 12:50 GFR Calculation 124.6 mL/min (90-130) 03/24/23 12:50 Glucose 143 mg/dL (65-115) H 03/24/23 12:50 Calculated Osmolality 291 mOsm/kg (285-295) 03/24/23 12:50 Calcium 9.3 mg/dL (8.5-10.5) 03/24/23 12:50 Total Bilirubin 0.6 mg/dL (0.15-1.2) 03/24/23 12:50 AST 67 U/L (0-32) H 03/24/23 12:50 ALT 29 U/L (0-33) 03/24/23 12:50 Alkaline Phosphatase 73 U/L (35-105) 03/24/23 12:50 Total Protein 6.8 g/dL (6.6-8.7) 03/24/23 12:50 Albumin 3.8 g/dL (3.5-5.2) 03/24/23 12:50 Globulin 3.0 g/dL (1.3-4.6) 03/24/23 12:50 Lipase 3784 U/L (13-60) H 03/24/23 12:50 All radiology interpretation(s) finalized by discharge Discharge Plan Discharge Patient Disposition: Admitted As Inpatient Clinical Impression: Acute pancreatitis, Cirrhosis of liver Condition: Stable Coding Level of Care Code ED Wheel Truing Machine Tender for Nadia Poole
[2023-03-24] MEDS: sodium chloride 0.9% 1,000 ML 999 ML IV ×2 (12:54→14:57)
[2023-03-24 12:55] LABS: Basophils % 0.5 %; Eosinophils # 0.2 10^3/uL (0.0-0.8); Eosinophils % 2.9 %; Hematocrit 42.2 % (36-47); Lymphocytes # 1.9 10^3/uL (0.8-4.8); Lymphocytes % 26.5 %; Mean Corpuscular HGB Conc 32.7 g/dL (30-55); Mean Corpuscular Hemoglobin 27.3 pg (27-33); Mean Corpuscular Volume 83.6 fl (85-98); Mean Platelet Volume 11.9 fL (7.4-10.4); Monocytes # 0.4 10^3/uL (0.2-0.9); Monocytes % 4.9 %; Neutrophils # 4.73 10^3/uL (1.8-7.7); Neutrophils % 64.9 %; Nucleated Red Blood Cells % 0 %; Platelet Count 166 10^3/cmm (157-399); Red Blood Count 5.05 10^6/uL (3.85-5.65); Red Cell Distribution Width 13.3 % (12.1-15.1); White Blood Count 7.29 10^3/uL (3.29-11.43)
[2023-03-24 13:11] LABS: Alanine Aminotransferase 29 U/L (0-33); Albumin Level 3.8 g/dL (3.5-5.2); Alkaline Phosphatase 73 U/L (35-105); Anion Gap 13.1 (5-19); Aspartate Amino Transferase 67 U/L (0-32); Blood Urea Nitrogen 8 mg/dL (8-23); Calcium 9.3 mg/dL (8.5-10.5); Carbon Dioxide 25 mmol/L (22-29); Chloride 106 mmol/L (98-107); Glomerular Filtration Rate 124.6 mL/min (90-130); Glucose 143 mg/dL (65-115); Osmolality Calculated 291 mOsm/kg (285-295); Potassium 4.1 mmol/L (3.5-5.1); Sodium 140 mmol/L (136-145); Total Bilirubin 0.6 mg/dL (0.15-1.2); Total Protein 6.8 g/dL (6.6-8.7)
--- NOTE | 2023-03-24 13:11 | CT_ITS ---
WS: [id number] CT ABDOMEN AND PELVIS WITH CONTRAST HISTORY: abd pain TECHNIQUE: Imaging performed of the abdomen and pelvis with IV contrast. Single phase imaging of the abdomen. Coronal and sagittal reformats are submitted. All CT scans at [facility] use at [address] one of these dose optimization techniques: automated exposure control; mA and/or kV adjustment per patient size (includes targeted exams where dose is matched to clinical indication); or iterative re construction. IV CONTRAST: Omnipaque 350; 100 mL IV. Oral contrast: No DLP: 543.43 mGy.cm COMPARISON: 03/05/2023 Lower thorax: Lung bases are clear. Heart is normal size. Small hiatal hernia Paraesophageal varices are noted around the distal esophagus into the LEFT upper quadrant. Liver/biliary system: Cirrhosis. No mass. Common bile duct is 6.5 mm. No stone is evident within the common bile duct by CT. Gallbladder: Hydropic gallbladder. Transverse diameter is 4.9 cm. No stones are identified by CT. Hyd ropic gallbladder with surrounding inflammation and fluid in the rudy hepatis. Pancreas: Diffuse edema surrounding the pancreas. Greater amount of edema at the pancreatic head exte nding into the rudy hepatis. Edema extends to surround the proximal duodenum. Spleen: No change. Splenic varices. Adrenal glands: Normal. Right kidney: No obstruction. Small cortical cysts. The largest measures 8 mm. Left kidney: Normal. Aorta: Mild atherosclerosis with no aneurysm. Lymphadenopathy: There are numerous small lymph nodes in the upper abdomen surrounding the celiac axi s and extending into the rudy hepatis. Lymph nodes are mildly enlarged measuring up to 15 mm. Free fluid: Small amount of free fluid in the upper abdomen associated with the pancreatic head, gall bladder rudy hepatis. Fluid extends along the paracolic gutters bilaterally. There is a small amount of fluid surrounding the proximal duodenum and the pancreas and a small amount of free fluid GI tract: Stomach is moderately distended with food products. Mild edema surrounding the duodenal C-l oop. No small bowel obstruction. No colon obstruction. No appendicitis. Abdominal wall: Unremarkable abdominal wall. No hernia. Pelvis: Well-distended urinary bladder. Prior hysterectomy. Small amount of free fluid. Bones: Degenerative disc disease at L4-5. IMPRESSION: 1. Progression of findings most consistent with acute pancreatitis as compared to 03/05/2023. There is a large amount of edema and fluid surrounding the pancreas and extending into the rudy hepatis an d encasing the proximal duodenum. Favor these changes are all due to acute pancreatitis. No GI tract obstruction. 2. Hydropic gallbladder. Gallbladder has increased in size. No stones are identified by CT. Consider cholecystitis. 3. Common bile duct at 6.5 mm. Top normal size. No stones are identified within the duct by CT. 4. Cirrhotic liver. Varices in the LEFT upper abdomen. 5. No abscess or formed pseudocyst.
[2023-03-24] MEDS: ketorolac 30 mg/mL INJ IVP (13:31)
[2023-03-24] MEDS: ondansetron 2 mg/ML SDV 2 mL 4 MG IVP (13:31)
[2023-03-24] MEDS: iohexol 350 mg/mL 500 mL Btl (per mL) IV (14:01)
[2023-03-24 14:28] LABS: Lipase 3784 U/L (13-60)
[2023-03-24 14:57] LABS: Triglycerides 58 mg/dL (0-150)
[2023-03-24] MEDS: morphine 4 mg/mL SDV 1 mL 2 MG IVP (15:02)
--- NOTE | 2023-03-24 16:38 | P.HP_ITS ---
Providers/Chief Complaint Admitting Physician: Nanda Davsi MD Primary Care Provider: Conrad Amaya Chief Complaint: Abd Pain History of Present Illness Stella Covarrubias is a 62 year old female who presented to the emergency room with chief complaint of abdominal pain. She has a history of her first episode of pancreatitis last month. Specific etiology was not determined. She denies any recent medication changes. No significant history of alcohol use. No family history of pancreatitis. She had some gallbladder sludge and gallstones noted during previous evaluation. She does not have known hyperlipidemia. No recent infections. She does have a history of hepatitis C and has had TIPS procedure approximately 5 years ago. She did undergo treatment for hepatitis C. After she went home she was doing better but the pain has never really gone completely away. She denies eating fried or fatty foods. The pain in her right upper quadrant started worsening about a week ago. It radiates through to her back her right flank and down into her right lower quadrant. She has had nausea but no vomiting. She denies any changes in bowel movement. Last bowel movement was this morning. No hematemesis or hematochezia, no melena. Pain had been moderate in intensity but was worsening to the point today it was rated at a 10 out of 10. In the emergency room she was found to have a lipase Of 3784. During her last hospital stay, lipase was as high as 40-65. At discharge on March 08 it was around 1260. Pain has improved to 8/10 with fluids and medication administered in ER. She is being admitted for treatment and monitoring. Vitals are currently stable. Review of Systems General: Reports: Other (ROS as per HPI or as otherwise noted here) Const: Denies: fever(s) or change in weight ENMT: Denies: throat pain or nasal discharge Card: Denies: chest pain or palpitations Resp: Denies: dyspnea, productive cough, non-productive cough or pain on inspiration GI: Reports: abdominal pain, nausea and heartburn; Denies: vomiting, hematemesis, dysphagia, diarrhea, constipation, change in bowel habits or hematochezia : Reports: flank pain; Denies: difficulty voiding Skin/Breast: Reports: other (previous wounds healed); Denies: rash or pruritus Neuro: Reports: difficulty walking; Denies: headache(s) Dariel/Lymph: Denies: easy bleeding Medications/Allergies Home Medications Medication Instructions Recorded Confirmed Last Taken Type amlodipine 10 mg tablet 10 mg PO DAILY@14 03/05/23 03/24/23 03/23/23 History dicyclomine 10 mg capsule 10 mg PO TID PRN Cramps 03/05/23 03/24/23 03/05/23 10:00 History escitalopram oxalate 10 mg tablet 10 mg PO DAILY@14 mental health 03/05/23 03/24/23 03/23/23 History ondansetron HCl 4 mg tablet 4 mg PO Q8H PRN Nausea And Vomiting 03/05/23 03/24/23 03/05/23 History pantoprazole 40 mg tablet,delayed 40 mg PO DAILY@14 03/05/23 03/24/23 03/23/23 History release trazodone 50 mg tablet 50 mg PO BEDTIME 03/05/23 03/24/23 Unknown History docusate sodium 100 mg capsule 100 mg PO DAILY PRN Constipation 03/24/23 03/24/23 Unknown History (Colace) Allergies Allergy/AdvReac Type Severity Reaction Status Date / Time prochlorperazine Allergy Intermediate ADR-Irritab Verified 11/26/22 14:09 [From Compazine] le fentanyl Allergy ADR-Nausea Verified 03/05/23 13:58 morphine Allergy ALGY-Difficulty Verified 03/05/23 21:35 Breathing compazine Allergy makes her Uncoded 11/26/22 14:09 want to run PFSH Acute PFSH: Medical History (Updated 03/24/23 @ 20:32 by Nanda Davis MD) Basal cell carcinoma (BCC) Cervical radiculopathy Chronic neck pain Chronic right shoulder pain Cirrhosis of liver History of past hepatitis C that was treated, 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 Constipation Degenerative disk disease Depression Diverticulosis of colon Generalized anxiety disorder Herniation of left side of L4-L5 intervertebral disc 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, 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 HTN (hypertension) 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 Renal mass Surgical History (Updated 03/24/23 @ 20:17 by Nanda Davis MD) History of hysterectomy History of neck surgery S/P TIPS (transjugular intrahepatic portosystemic shunt) Family History (Updated 03/24/23 @ 20:17 by Nanda Davis MD) Mother Heart problem Brother Heart problem Denies family history of Pancreatitis Social History (Updated 03/24/23 @ 19:32 by Nanda Davis MD) Smoking and tobacco/nicotine status: current every day tobacco/nicotine user cigarettes [ Other cigarette details: 4-5 cigarettes per day] Second hand smoke exposure: Yes Alcohol intake: never Substance/Drug Use: never Vitals/I&O/Wt Last Vital Signs Temp 98.3 F 03/24/23 12:39 Pulse 59 L 03/24/23 12:39 Resp 18 03/24/23 15:02 BP 126/68 03/24/23 15:59 Pulse Ox 97 03/24/23 12:39 O2 Del Method Room Air 03/24/23 12:39 03/24/23 03/24/23 03/24/23 06:59 14:59 22:59 Intake Total 1000 / 1000 1000 / 2000 Balance 1000 / 1000 1000 / 2000 Weight last 48 hrs Weight 61.235 kg Physical Exam Narrative: Patient is awake and alert, able to provide history. Normocephalic. Extra ocular movements intact. Nasopharynx clear. Oropharynnx with dry membranes. Neck supple. Lungs are clear bilaterally. No wheezes. No accessory muscle use. Cardiovascular exam with regular bradycardic rhythm. No murmurs. Abdomen is soft, voluntary guarding noted. RUQ & R flank tenderness greater than RLQ tenderness greater than left sided tenderness. Mild rebound. Hypoactive bowel sounds. No pitting edema. Pulses are 2+ and equal. Speech clear, face symmetric, moves all extremities. No abnormal movements noted. Data 03/24/23 12:50 03/24/23 12:50 Other Labs: CT abd/pelvis IMPRESSION: 1.? Progression of findings most consistent with acute pancreatitis as compared to 03/05/2023. There is a large amount of edema and fluid surrounding the pancreas and extending into the rudy hepatis and encasing the proximal duodenum. Favor these changes are all due to acute pancreatitis. No GI tract obstruction. 2.? Hydropic gallbladder. Gallbladder has increased in size. No stones are ident ified by CT. Consider cholecystitis. 3.? Common bile duct at 6.5 mm. Top normal size. No stones are identified within the duct by CT. 4.? Cirrhotic liver. Varices in the LEFT upper abdomen. 5.? No abscess or formed pseudocyst. Laboratory Results WBC 7.29 10^3/uL (3.29-11.43) 03/24/23 12:50 RBC 5.05 10^6/uL (3.85-5.65) 03/24/23 12:50 Hgb 13.80 g/dL (11.27-16.99) 03/24/23 12:50 Hct 42.2 % (36-47) 03/24/23 12:50 MCV 83.6 fl (85-98) L 03/24/23 12:50 MCH 27.3 pg (27-33) 03/24/23 12:50 MCHC 32.7 g/dL (30-55) 03/24/23 12:50 RDW 13.3 % (12.1-15.1) 03/24/23 12:50 Plt Count 166 10^3/cmm (157-399) 03/24/23 12:50 MPV 11.9 fL (7.4-10.4) H 03/24/23 12:50 Neut % (Auto) 64.9 % 03/24/23 12:50 Lymph % (Auto) 26.5 % 03/24/23 12:50 [place] % (Auto) 4.9 % 03/24/23 12:50 Eos % (Auto) 2.9 % 03/24/23 12:50 Baso % (Auto) 0.5 % 03/24/23 12:50 Neut # (Auto) 4.73 10^3/uL (1.8-7.7) 03/24/23 12:50 Lymph # (Auto) 1.9 10^3/uL (0.8-4.8) 03/24/23 12:50 [place] # (Auto) 0.4 10^3/uL (0.2-0.9) 03/24/23 12:50 Eos # (Auto) 0.2 10^3/uL (0.0-0.8) 03/24/23 12:50 Baso # (Auto) 0.0 10^3/uL (0.0-0.1) 03/24/23 12:50 Nucleated RBC % (auto) 0 % 03/24/23 12:50 Nucleated RBCs # 0.0 /100WBC 03/24/23 12:50 Sodium 140 mmol/L (136-145) 03/24/23 12:50 Potassium 4.1 mmol/L (3.5-5.1) 03/24/23 12:50 Chloride 106 mmol/L (98-107) 03/24/23 12:50 Carbon Dioxide 25 mmol/L (22-29) 03/24/23 12:50 Anion Gap 13.1 (5-19) 03/24/23 12:50 BUN 8 mg/dL (8-23) 03/24/23 12:50 Creatinine 0.5 mg/dL (0.5-0.9) 03/24/23 12:50 GFR Calculation 124.6 mL/min (90-130) 03/24/23 12:50 Glucose 143 mg/dL (65-115) H 03/24/23 12:50 Calculated Osmolality 291 mOsm/kg (285-295) 03/24/23 12:50 Calcium 9.3 mg/dL (8.5-10.5) 03/24/23 12:50 Total Bilirubin 0.6 mg/dL (0.15-1.2) 03/24/23 12:50 AST 67 U/L (0-32) H 03/24/23 12:50 ALT 29 U/L (0-33) 03/24/23 12:50 Alkaline Phosphatase 73 U/L (35-105) 03/24/23 12:50 Total Protein 6.8 g/dL (6.6-8.7) 03/24/23 12:50 Albumin 3.8 g/dL (3.5-5.2) 03/24/23 12:50 Globulin 3.0 g/dL (1.3-4.6) 03/24/23 12:50 Triglycerides 58 mg/dL (0-150) 03/24/23 12:50 Lipase 3784 U/L (13-60) H 03/24/23 12:50 Laboratory Tests 02/06/21 11/03/21 01/27/22 20:50 15:10 12:49 Lipase 66 H 52 72 H 03/05/23 03/08/23 15:40 04:25 Lipase 4265 H 1260 H Laboratory Tests 11/01/22 23:40 Hemoglobin A1c 4.8 A&P Assessment and plan (1) Acute pancreatitis: Currently unspecified pancreatitis type presently wihthout necrosis. Patient without history of alcohol use. No ERCP history. Current home medications are not usual ones I generally associate with pancreatitis. Denies any recent medication changes beyond short supply of paiin medications and meds received in the hospital. Calcium normal range. Not known to be hyperlipidemic and trigly cerides today normal. Normal TSH last stay. No family history of pancreatitis. No pancreatic masses noted on imaging. Has history of hepatitis C with treatment and TIPS procedure ~5 years ago. Currently has an enlarged gallbladder on CT imaging and on previous admission had some gallstones but currently with normal liver enzymes except for slightly elevated AST. She had a HIDA scan in February 2022 that was normal. No recent gallbladder ultrasonographic imaging. (2) HTN (hypertension): Primary hypertension, chronically on amlodipine, blood pressure normal/low normal range at admission. 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 Status post hep C treatment. Has associated para-esophageal varicies, no history of variceal bleeding. Currently only mild AST elevation. Normal albumin. Review of records shows no elevated ammonia, small ascites only at times. 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 History of renal mass noted on prior imaging in 08/2022, was referred for Abd MRI but never completed, CT today with renal cysts noted Inpatient admission given severity of pain, elevation in lipase and repeat admission within a few weeks after first episode of pancreatitis IV fluids, received 2 liter bolus saline in ED Clear liquids only for now Monitor urine output, electrolytes and renal function Telemetry monitoring for 1st 24-48 hours Pain control with oral and IV hydromorphone Avoiding nsaids given varicies Reviewed with patient typical need for narcotic therapy for pain control with pancreatitis and the recurrent episode increasing her risk of becoming dependent on narcotics and similar medications again. We talked about trying to use the smallest dose that would provide pain relief for her and using narcotics for the shortest period of time feasible. We talked about how it can be difficult to differentiate between acute pain and that which could be the voice of addiction and I encouraged her to talk about this openly during her course of care. Antiemetics as needed No current indication for antibiotics Gallbladder US Recheck labs in am PPI Accuchecks and sliding scale insulin if needed, A1c was 4.8 in 10/2022 Stool softeners/laxatives Currently holding home amlodipine with present blood pressures and use of narcotic pain medications We will continue patient's home escitalopram and trazodone VTE prophylaxis: SCDs, patient refuses pharmocological prophylaxis GI Prophylaxis: PPI Telemetry: ordered to monitor for rhythm changes in first 24-48 hours of admission given pancreatitis Mcgovern: not currently indicated though need to monitor urine output Line(s): peripheral IVs Disposition plan: Home with outpatient follow up to Dr Amaya, may benefit from referral to GI given recurrent pancreatitis without clear etiology, prior hepatic history. Code Status: Full Code Supportive care otherwise Findings, concerns and plans were discussed with patient and they were given an opportunity to ask questions. We also talked about the pancreas, what it's function is and relation to food, pancreatitis, potential causes (as outlined in A&P) management both acutely and longer term. Attestations Medical Necessity Statement*: Anticipated stay greater than two midnights in this patient presenting with recurent pancreatis a couple weeks after first episode in which specific etiology not identified. She has comparative increase in edema and peripancreatic fluid from the pancreas to the rudy hepatis and proximal duodenum. Gallbladder size also increased from previous study. Despite currently normal range vital signs and mostly normal labs outside of lipase, clinical symptoms and findings on imaging are concerning. Mrs Covarrubias needs supportive care with fluids, pain and other symptom management, support of nutrition as needed and close monitoring - at risk of continued clinical decline with increase in morbidity, prolonged length of stay and mortality without appropriate inpatient treatment now. Diagnoses Acute pancreatitis K85.90 HTN (hypertension) I10 Cirrhosis of liver K74.60 Depression F32.9
[2023-03-24] MEDS: sodium chlor 0.9% + KCl 20 mEq 20 MEQ/1,000 ML BAG 125 MEQ IV (17:50)
[2023-03-24] MEDS: HYDROcodone-acetaminophen 5-325 mg Tablet 1 TAB PO (17:50)
[2023-03-24] MEDS: docusate sodium 100 mg Capsule PO (17:50)
--- NOTE | 2023-03-24 18:00 | PC.NURSE ---
Patient refused lovenox shots. Notified Dr. Davis.
--- NOTE | 2023-03-24 19:44 | US_ITS ---
WS: [id number] RIGHT UPPER QUADRANT ULTRASOUND HISTORY: abd pain, thickened GB on CT worse than 03/05, pancreatitis COMPARISON: Recent CT 03/24/2023 Liver: 16.5 cm in length. Normal size liver. Mild coarse echotexture. Surface of the liver is slightl y nodular suggesting cirrhosis. Cirrhosis was also identified on the recent CT. No mass. Portal Vein: Normal hepatopetal flow with monophasic waveform. Gallbladder: Gallbladder is not as distended as it was on the prior study of 03/24/2023. Normal disten tion. There is diffuse wall thickening and nonshadowing foci within the gallbladder. No stones are id entified. Gallbladder wall thickening measuring up to 3.8 mm. There is also small amount of perichole cystic fluid. CBD: 0.7 cm Pancreas: Normal size and echogenicity. Right kidney: 13.0 cm in length. Normal size and echogenicity. No hydronephrosis or mass. Aorta and IVC: Unremarkable abdominal aorta and IVC. Small amount of ascites in the RIGHT upper quadrant. IMPRESSION: 1. Abnormal gallbladder. Gallbladder is less distended as compared to the recent CT. Continued wall t hickening and small amount of pericholecystic fluid with nonshadowing sludge/tumefactive sludge in th e gallbladder. In the correct clinical setting this may represent acute cholecystitis. These findings may also be seen with hepatocellular disease. 2. Cirrhosis. 3. Common bile duct is top normal size. No stones are identified within the duct.
[2023-03-24 20:21] LABS: Glucose Point of Care 89 mg/dL (70-110)
[2023-03-24 21:36] LABS: Add Urine Microscopic? NO; Charge for UA Resulting for Rev
[2023-03-24 21:44] LABS: Bilirubin Urine Neg (Negative); Blood Urine Neg (Negative); Glucose Urine UA Norm (Normal); Ketones Urine Negative (Negative); Leukocyte Esterase Urine Negative (Negative); Nitrate Urine Negative (Negative); Protein Urine Neg (Negative); Specific Gravity, Urine 1.015 (1.005-1.030); Sulfosalicylic Acid Urine Negative (Negative); Urine Appearance Clear (CLEAR); Urine Color Yellow (Yellow); Urobilinogen Urine 1 mg/dL (Negative); pH Urine 8 (5-7)
[2023-03-25] VITALS (12 sets, daily range): BP systolic 109–122; BP diastolic 68–77; PULSE 65–74; RESP 15–18; TEMP 36.7–37.2; O2SAT 94–95
[2023-03-25] MEDS: sodium chlor 0.9% + KCl 20 mEq 20 MEQ/1,000 ML BAG 125 MEQ IV ×2 (01:11→11:31)
[2023-03-25] MEDS: HYDROmorphone 1 mg/mL INJ 1 mL 0.2 MG IVP (02:01)
[2023-03-25] MEDS: HYDROcodone-acetaminophen 5-325 mg Tablet 1 TAB PO (04:20)
[2023-03-25] MEDS: calcium carbonate 500 mg Chew Tablet 1000 MG PO (04:23)
[2023-03-25 04:51] LABS: Basophils % 0.3 %; Eosinophils # 0.1 10^3/uL (0.0-0.8); Eosinophils % 2.3 %; Hematocrit 35.5 % (36-47); Lymphocytes # 0.7 10^3/uL (0.8-4.8); Lymphocytes % 17.3 %; Mean Corpuscular HGB Conc 31.8 g/dL (30-55); Mean Corpuscular Hemoglobin 27.5 pg (27-33); Mean Corpuscular Volume 86.4 fl (85-98); Mean Platelet Volume 12.3 fL (7.4-10.4); Monocytes # 0.3 10^3/uL (0.2-0.9); Monocytes % 6.8 %; Neutrophils # 2.91 10^3/uL (1.8-7.7); Nucleated Red Blood Cells % 0 %; Platelet Count 104 10^3/cmm (157-399); Red Blood Count 4.11 10^6/uL (3.85-5.65); Red Cell Distribution Width 13.3 % (12.1-15.1); White Blood Count 3.98 10^3/uL (3.29-11.43)
[2023-03-25 05:07] LABS: INR 1.17 (0.8-1.2); Partial Thromboplastin Time 29.4 SECONDS (23.9-36.7)
[2023-03-25 05:21] LABS: Alanine Aminotransferase 41 U/L (0-33); Albumin Level 3.4 g/dL (3.5-5.2); Alkaline Phosphatase 68 U/L (35-105); Anion Gap 11.3 (5-19); Aspartate Amino Transferase 61 U/L (0-32); Blood Urea Nitrogen 6 mg/dL (8-23); Calcium 8.3 mg/dL (8.5-10.5); Carbon Dioxide 21 mmol/L (22-29); Chloride 110 mmol/L (98-107); Glomerular Filtration Rate 161.2 mL/min (90-130); Glucose 72 mg/dL (65-115); Magnesium 1.8 mg/dL (1.7-2.3); Osmolality Calculated 282 mOsm/kg (285-295); Phosphorus 2.5 mg/dL (2.5-4.5); Potassium 4.3 mmol/L (3.5-5.1); Sodium 138 mmol/L (136-145); Total Bilirubin 1.2 mg/dL (0.15-1.2); Total Protein 5.4 g/dL (6.6-8.7)
[2023-03-25 05:29] LABS: Lipase 1352 U/L (13-60)
[2023-03-25 06:35] LABS: Glucose Point of Care 75 mg/dL (70-110)
[2023-03-25] MEDS: piperacillin-tazobactam 3.375 GM in sodium chloride 0.9% (plus) 50 ML IV ×2 (08:25→16:11)
[2023-03-25] MEDS: docusate sodium 100 mg Capsule PO (08:29)
[2023-03-25 09:33] LABS: C Reactive Protein 4.5 mg/L (0.0-4.9); Gamma Glutamyl Transferase 44 U/L (5-36); Magnesium 1.7 mg/dL (1.7-2.3); Phosphorus 2.3 mg/dL (2.5-4.5)
[2023-03-25 09:36] LABS: Erythrocyte Sedimentation Rate 8 mm/hr (0-15)
[2023-03-25 09:40] LABS: Procalcitonin 0.12 ng/mL (0-0.5)
[2023-03-25 09:43] LABS: Hepatitis A Antibody IgM Non-Reactive (Nonreactive); Hepatitis B Core IgM Non-Reactive (Nonreactive); Hepatitis B Surface Antigen Non-Reactive (Nonreactive); Hepatitis C Virus Antibody Reactive (Nonreactive)
[2023-03-25 10:07] LABS: Ammonia 31 umol/L (11-51)
[2023-03-25] MEDS: ondansetron 2 mg/ML SDV 2 mL 4 MG IVP ×2 (10:24→18:39)
[2023-03-25 10:52] LABS: Glucose Point of Care 75 mg/dL (70-110)
--- NOTE | 2023-03-25 10:52 | PC.CHAP ---
Pastoral Care Encounter/Spiritual Assessment Type of Contact [] Declined stevedore hold visit [] Patient/Family/Request visit [] Outpatient visit [] Follow-up visit [] Physician referral [] Code/Alert [x] Routine visit [] Staff referral [] Actively dying [] Patient sleeping [] Family support [] [] Out of room [] Palliative care [] [] Receiving care in room [] Pre-surgical visit [] Trauma [] Long length of stay [] ICU visit [] Other: Relational/Emotional Strength [x] Patient feels connected with others/family/visitors/staff [] Distress [] Loneliness/isolation [] Abandonment Spirituality of Patient [] Person of [place] [] Attends Confucianism of their [place] [x] Believes in Prayer [] Reads Bible or Hinduism materials [] There are Spiritual issues to be addressed Knot Bumper 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 [x] Prayer [x] Active listening [] Non-anxious presence [] Spiritual/emotional support [] Crisis/trauma care [] Spiritual counseling [] Bereavement support [] Provided bereavement packet [] Provided Bible/devotional materials [] Provided toy/stuffed animal, coloring book to patient or family member [] Provided Communion [] Anointing/[place] [] Salvation [] Completed spiritual assessment [] Other: Impact on Illness or Injury [] Angry [] Fearful [] Anxious [] Often cries [] Exhaustion [] Unable to work [] Unable to attend tenriism [] Unable to walk/stand [] Unable to read [] Unable to drive [] Unable to eat/drink [] Unable to sleep [] Unable to be with family [] Patient intubated [] Other: Summary Time spent with patient 15 min
[2023-03-25] MEDS: HYDROmorphone 1 mg/mL INJ 1 mL 0.5 MG IVP ×3 (11:19→20:54)
--- NOTE | 2023-03-25 14:41 | P.PN_ITS ---
Subjective Subjective: Patient was seen this morning, she continues to have diffuse abdominal pain to feel nauseous, no lightheadedness, no dizziness, she tells me she is not passing gas from below has not had a bowel movement, denies any lightheadedness, denies any dizziness, we discussed consulting general surgery for consideration of surgical evaluation for gallstone pancreatitis as a possible etiology behind her recurrent pancreatitis, I spoke to Dr. Brooks, will consult, in addition spoke to patient about doing HIDA scan tomorrow, she is agreeable, for now we will keep her n.p.o., continue IV fluids, optimize her pain control continue to monitor her, I also suspect that she might have an ileus with her pancreatitis, as her bowel sounds are diminished on examination, abdomen is a bit distended, she has not passed any gas or stool, we will keep her n.p.o. for now she voices understanding, all questions answered Vitals/I&O/Wt Last Vital Signs Temp 98.0 F 03/25/23 11:23 Pulse 65 03/25/23 11:23 Resp 17 03/25/23 11:23 BP 122/73 03/25/23 11:23 Pulse Ox 95 03/25/23 11:23 O2 Del Method Room Air 03/25/23 11:23 03/24/23 03/25/23 03/25/23 22:59 06:59 14:59 Intake Total 1120 / 2120 918.75 / 3038.75 1000 / 1000 Output Total 500 / 500 600 / 600 Balance 620 / 1620 918.75 / 2538.75 400 / 400 Weight last 48 hrs Weight 61.235 kg Physical Exam Const: COMMON NORMALS: no acute distress and patient oriented x3 Resp: COMMON NORMALS: normal respiratory effort, No retractions, No use of accessory muscles and clear to auscultation bilaterally AUSCULTATION: clear to auscultation bilaterally Cardio: COMMON NORMALS: regular rate, regular rhythm, S1 normal heart sound present and S2 normal heart sound present RATE: regular rate RHYTHM: regular rhythm HEART SOUNDS: S1 normal heart sound present and S2 normal heart sound present GI: OTHER: Abdomen soft, distended, decreased bowel sounds in all 4 quadrants, no guarding, no rebound, rigidity, does have diffuse tenderness, Extremity: COMMON NORMALS: no pedal edema Neuro: COMMON NORMALS: patient oriented x3 Psych: COMMON NORMALS: mental status grossly normal Data 03/25/23 04:10 03/25/23 04:10 A&P Assessment and plan (1) Acute pancreatitis: -History of TIPS procedure for liver cirrhosis related to hepatitis C, needlestick, status post treatment, ? CT scan abdomen pelvis ?IMPRESSION: 1.? Progression of findings most consistent with acute pancreatitis as compared to 03/05/2023. There is a large amount of edema and fluid surrounding the pancreas and extending into the rudy hepatis and encasing the proximal duodenum. Favor these changes are all due to acute pancreatitis. No GI tract obstruction. 2.? Hydropic gallbladder. Gallbladder has increased in size. No stones are identified by CT. Consider cholecystitis. 3.? Common bile duct at 6.5 mm. Top normal size. No stones are identified within the duct by CT. 4.? Cirrhotic liver. Varices in the LEFT upper abdomen. 5.? No abscess or formed pseudocyst., ? Gallbladder ultrasound IMPRESSION: 1. Abnormal gallbladder. Gallbladder is less distended as compared to the recent CT. Continued wall thickening and small amount of pericholecystic fluid with nonshadowing sludge/tumefactive sludge in the gallbladder. In the correct clinical setting this may represent acute cholecystitis. These findings may also be seen with hepatocellular disease. 2. Cirrhosis. 3. Common bile duct is top normal size. No stones are identified within the duct., ? AST 61, ? ALT 41, ? Lipase 1352 ? Plan ? Keep n.p.o., ? Serial abdominal exams, ? IV fluids, ? Dilaudid 0.5 mg IV push every 4 hours as needed for pain, ? Zofran, Reglan for nausea, ? Continue Zosyn for antibiotic coverage,, ? Concerns for possibilities, keep n.p.o., replace electrolytes, ? Concerns for possible acute cholecystitis, consulted general surgery, HIDA scan, Zosyn, ? Full code, ? Lovenox for DVT prophylaxis (2) HTN (hypertension): Primary hypertension, chronically on amlodipine, blood pressure normal/low normal range at admission. 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 Status post hep C treatment. Has associated para-esophageal varicies, no history of variceal bleeding. Currently only mild AST elevation. Normal albumin. Review of records shows no elevated ammonia, small ascites only at times. 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 History of renal mass noted on prior imaging in 08/2022, was referred for Abd MRI but never completed, CT today with renal cysts noted Recheck labs in am PPI Accuchecks and sliding scale insulin if needed, A1c was 4.8 in 10/2022 Stool softeners/laxatives Currently holding home amlodipine with present blood pressures and use of narcotic pain medications We will continue patient's home escitalopram and trazodone VTE prophylaxis: SCDs, patient refuses pharmocological prophylaxis GI Prophylaxis: PPI Telemetry: ordered to monitor for rhythm changes in first 24-48 hours of admission given pancreatitis Mcgovern: not currently indicated though need to monitor urine output Line(s): peripheral IVs Disposition plan: Home with outpatient follow up to Dr Amaya, may benefit from referral to GI given recurrent pancreatitis without clear etiology, prior hepatic history. Code Status: Full Code Supportive care otherwise Findings, concerns and plans were discussed with patient and they were given an opportunity to ask questions. We also talked about the pancreas, what it's function is and relation to food, pancreatitis, potential causes (as outlined in A&P) management both acutely and longer term. Attestations Medical Necessity Statement*: Patient requires hospitalization for pancreatitis, possible acute cholecystitis, with ileus, requiring surgical consultation, n.p.o., HIDA scan, pain control, bowel rest, Diagnoses Acute pancreatitis K85.90 HTN (hypertension) I10 Cirrhosis of liver K74.60 Depression F32.9 Ileus K56.7 Cholecystitis K81.9
[2023-03-25] MEDS: pantoprazole DR 40 mg Tablet PO (16:11)
[2023-03-25] MEDS: escitalopram 10 mg Tablet PO (16:11)
[2023-03-25 16:54] LABS: Glucose Point of Care 64 mg/dL (70-110)
[2023-03-25] MEDS: dextrose 50% syringe 50 mL 25 ML IVP (16:59)
[2023-03-25 17:49] LABS: Glucose Point of Care 70 mg/dL (70-110)
[2023-03-25] MEDS: dextrose 5 % 500 ML 100 ML IV (18:02)
[2023-03-25] MEDS: sennosides 8.6 mg Tablet 17.2 MG PO (20:42)
[2023-03-25 21:24] LABS: Glucose Point of Care 88 mg/dL (70-110)
[2023-03-26] VITALS (11 sets, daily range): BP systolic 112–136; BP diastolic 59–72; PULSE 55–68; RESP 15–16; TEMP 36.5–36.8; O2SAT 93–98
[2023-03-26] MEDS: piperacillin-tazobactam 3.375 GM in sodium chloride 0.9% (plus) 50 ML IV ×3 (00:50→16:23)
[2023-03-26] MEDS: sodium chlor 0.9% + KCl 20 mEq 20 MEQ/1,000 ML BAG 125 MEQ IV ×3 (00:51→18:33)
[2023-03-26 06:12] LABS: Basophils % 0.3 %; Eosinophils # 0.1 10^3/uL (0.0-0.8); Eosinophils % 3.2 %; Hematocrit 36.1 % (36-47); Lymphocytes # 0.6 10^3/uL (0.8-4.8); Lymphocytes % 20.8 %; Mean Corpuscular HGB Conc 31.9 g/dL (30-55); Mean Corpuscular Hemoglobin 27.6 pg (27-33); Mean Corpuscular Volume 86.8 fl (85-98); Mean Platelet Volume 12.1 fL (7.4-10.4); Monocytes # 0.4 10^3/uL (0.2-0.9); Monocytes % 11.4 %; Neutrophils # 1.97 10^3/uL (1.8-7.7); Nucleated Red Blood Cells % 0 %; Platelet Count 97 10^3/cmm (157-399); Red Blood Count 4.16 10^6/uL (3.85-5.65); Red Cell Distribution Width 13.2 % (12.1-15.1); White Blood Count 3.08 10^3/uL (3.29-11.43)
[2023-03-26 06:29] LABS: Alanine Aminotransferase 27 U/L (0-33); Albumin Level 3.4 g/dL (3.5-5.2); Alkaline Phosphatase 64 U/L (35-105); Anion Gap 13.2 (5-19); Aspartate Amino Transferase 30 U/L (0-32); Blood Urea Nitrogen 4 mg/dL (8-23); Calcium 8.8 mg/dL (8.5-10.5); Carbon Dioxide 21 mmol/L (22-29); Chloride 108 mmol/L (98-107); Globulin 2.8 g/dL (1.3-4.6); Glomerular Filtration Rate 124.6 mL/min (90-130); Glucose 94 mg/dL (65-115); Magnesium 1.9 mg/dL (1.7-2.3); Osmolality Calculated 283 mOsm/kg (285-295); Phosphorus 2.8 mg/dL (2.5-4.5); Potassium 4.2 mmol/L (3.5-5.1); Sodium 138 mmol/L (136-145); Total Bilirubin 0.9 mg/dL (0.15-1.2); Total Protein 6.2 g/dL (6.6-8.7)
[2023-03-26 06:38] LABS: Glucose Point of Care 91 mg/dL (70-110)
[2023-03-26 06:47] LABS: Lipase 613 U/L (13-60)
--- NOTE | 2023-03-26 08:13 | NM_ITS ---
WS: [id number] NUCLEAR MEDICINE HIDA SCAN WITH GALLBLADDER EJECTION FRACTION HISTORY: recurent pancreatitis, concern for gallstone COMPARISON: 03/06/2022, gallbladder ultrasound 03/24/2023 TECHNIQUE: The patient was intravenously injected with 8.1 mCi of TC99m Mebrofenin. Immediate imaging over the right upper quadrant was followed by 5 minute image and additional images for a total of 60 minutes. Normal uptake of radiotracer throughout the liver. Activity identified in the gallbladder at 40 minutes and minimally well distended by 60 minutes. Activity in the proximal small bowel was seen by 15 minutes. Good washout of the radiotracer from the liver by 60 minutes. The patient then drank 8 ounces of Ensure Plus. Ejection fraction at 60 minutes was 72%. Normal GB ej ection fraction is 35-75%. Post fatty meal symptoms: None. IMPRESSION: 1. Normal HIDA scan. No common bile duct obstruction. 2. Normal gallbladder ejection fraction.
[2023-03-26] MEDS: docusate sodium 100 mg Capsule PO (10:36)
[2023-03-26] MEDS: HYDROmorphone 1 mg/mL INJ 1 mL 0.5 MG IVP ×2 (10:37→11:56)
[2023-03-26] MEDS: ondansetron 2 mg/ML SDV 2 mL 4 MG IVP ×2 (10:39→20:22)
--- NOTE | 2023-03-26 11:35 | P.CONIM_ITS ---
Providers/Reason For Consult Consulting Physician/Specialty*: Dr. Mehdi Brooks, DO/General surgery Reason for Consult*: Gallstone pancreatitis Attending Physician: Alexys Belcher MD Primary Care Provider: Conrad Amaya History of Present Illness History of Present Illness Stella Covarrubias is a 62 year old female who presents to the hospital with a 3- week history of epigastric and right upper quadrant abdominal pain radiating to her back. This was her second hospital admission for pancreatitis. She reports the pain is sharp and severe and constant. Moving makes the pain worse. Nothing seems to make the pain better. She reports nausea but denies any emesis. Denies any diarrhea, hematochezia and/or melena. She reports that she has been constipated with very hard stool. She has known cirrhosis with intra- abdominal varices and is status post TIPS procedure. Work-up during this admission shows a 7 mm common bile duct up from 4 mm a couple of months ago, along with sludge in the gallbladder and thickened gallbladder wall. HIDA scan was within normal limits. CT shows increased edema and inflammation surrounding the pancreas and duodenum Review of Systems General: Reports: 10 or more systems reviewed and unremarkable except in HPI and below Medications/Allergies Home Medications Medication Instructions Recorded Confirmed Last Taken Type amlodipine 10 mg tablet 10 mg PO DAILY@14 03/05/23 03/24/23 03/23/23 History dicyclomine 10 mg capsule 10 mg PO TID PRN Cramps 03/05/23 03/24/23 03/05/23 10: 00 History escitalopram oxalate 10 mg tablet 10 mg PO DAILY@14 mental health 03/05/23 03/24/23 03/23/23 History ondansetron HCl 4 mg tablet 4 mg PO Q8H PRN Nausea And Vomiting 03/05/23 03/24/23 03/05/23 History pantoprazole 40 mg tablet,delayed 40 mg PO DAILY@14 03/05/23 03/24/23 03/23/23 History release trazodone 50 mg tablet 50 mg PO BEDTIME 03/05/23 03/24/23 Unknown History docusate sodium 100 mg capsule 100 mg PO DAILY PRN Constipation 03/24/23 03/24/23 Unknown History (Colace) Allergies Allergy/AdvReac Type Severity Reaction Status Date / Time prochlorperazine Allergy Intermediate ADR-Irritab Verified 11/26/22 14:09 [From Compazine] le fentanyl Allergy ADR-Nausea Verified 03/05/23 13:58 morphine Allergy ALGY-Difficulty Verified 03/05/23 21:35 Breathing compazine Allergy makes her Uncoded 11/26/22 14:09 want to run Current Medications Generic Name Dose Route Start Last Admin Trade Name Hadley PRN Reason Stop Dose Admin Calcium Carbonate 1,000 mg 03/24/23 17:09 03/25/23 04:23 Calcium Carbonate 500 Mg Chew Tablet PO 1,000 mg Q4H PRN Administration DYSPEPSI Dextrose 25 ml 03/24/23 19:05 03/25/23 16:59 Dextrose 50% Syringe 50 Ml IVP 25 ml ONCE PRN Administration hypoglycemia protocol Protocol Docusate Sodium 100 mg 03/24/23 18:00 03/26/23 10:36 Docusate Sodium 100 Mg Capsule PO 100 mg BID LOC Administration Escitalopram Oxalate 10 mg 03/25/23 14:00 03/25/23 16:11 Escitalopram 10 Mg Tablet PO 10 mg DAILY@14 LOC Administration Potassium Chloride/Sodium Chloride 20 meq in 1,000 mls @ 125 mls/hr 03/24/23 17:15 03/26/23 10:40 Sodium Chlor 0.9% + Kcl 20 Meq IV 125 mls/hr .Q8H LOC Administration Dextrose 500 mls @ 100 mls/hr 03/24/23 19:05 03/25/23 23:14 D5w IV Infused ONCE PRN Infusion Adult Acute Hypoglycemia Prot Protocol Piperacillin Sod/Tazobactam 50 mls @ 12.5 mls/hr 03/25/23 08:30 03/26/23 10:36 Sod 3.375 gm/ Sodium Chloride IV 12.5 mls/hr Q8H LOC Administration Protocol Insulin Human Lispro 0 unit 03/24/23 21:00 03/25/23 21:25 Insulin Lispro 100 Unit/1 Ml SUBCUT Not Given BEDTIME LOC Protocol Insulin Human Lispro 0 unit 03/25/23 08:00 03/26/23 11:14 Insulin Lispro 100 Unit/1 Ml SUBCUT Not Given TIDWM LOC Protocol Ondansetron HCl 4 mg 03/24/23 17:09 03/26/23 10:39 Ondansetron 2 Mg/Ml Sdv 2 Ml IVP 4 mg Q8H PRN Administration vomiting, or N/V if npo Pantoprazole Sodium 40 mg 03/25/23 14:00 03/25/23 16:[address] 40 Mg Tablet PO 40 mg DAILY@14 LOC Administration Senna 17.2 mg 03/24/23 21:00 03/25/23 20:42 Sennosides 8.6 Mg Tablet PO 17.2 mg BEDTIME LOC Administration Trazodone HCl 50 mg 03/24/23 21:00 03/25/23 21:13 Trazodone 50 Mg Tablet PO Not Given BEDTIME LOC PFSH Acute PFSH: Medical History Basal cell carcinoma (BCC) Cervical radiculopathy Chronic neck pain Chronic right shoulder pain Cirrhosis of liver History of past hepatitis C that was treated, 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 Constipation Degenerative disk disease Depression Diverticulosis of colon Generalized anxiety disorder Herniation of left side of L4-L5 intervertebral disc 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, 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 HTN (hypertension) 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 Renal mass Surgical History History of hysterectomy History of neck surgery S/P TIPS (transjugular intrahepatic portosystemic shunt) Family History Mother Heart problem Brother Heart problem Denies family history of Pancreatitis Social History Smoking and tobacco/nicotine status: current every day tobacco/nicotine user cigarettes [ Other cigarette details: 4-5 cigarettes per day] Second hand smoke exposure: Yes Alcohol intake: never Substance/Drug Use: never Vitals/I&O/Wt Last Vital Signs Temp 98.3 F 03/26/23 04:20 Pulse 67 03/26/23 06:00 Resp 15 03/26/23 10:37 BP 120/59 03/26/23 04:20 Pulse Ox 93 03/26/23 04:20 O2 Del Method Room Air 03/26/23 04:20 03/25/23 03/26/23 03/26/23 22:59 06:59 14:59 Intake Total 480 / 1530 1066.667 / 2596.667 1000 / 1000 Output Total 1000 / 1600 700 / 2300 Balance -520 / -70 366.667 / 348.304 2755 / 1000 Weight last 48 hrs Weight 135 lb Physical Exam Narrative: General : Patient is well developed , no acute distress, oriented x3 Head : Normal cephalic, a-traumatic. Ears : Pinnae and external canal are normal. Hearing is normal. Eyes : PERRLA, Sclera and injection are normal. No conjunctival discharge. Nose : Mucous membranes are without erythema. Throat : buccal mucosa is normal, gums are without significant recession or hypertrophy. Lungs : Equal chest rise bilaterally, no use of accessory muscles, trachea is midline. Cor : Rate and rhythm are normal. Abdomen : Soft, ND, tender to palpation in epigastrium and right upper quadrant, negative Hinds's no g/r/m Extremities : No edema, no cyanosis or clubbing, dorsalis pedis pulses are present bilaterally, non-tender to palpation of calves. Upper extremities are normal bilaterally. Back : non-tender to palpation, no CVA tenderness. Neuro : CN II - XII intact, Upper and lower extremities have equal and full strength Data 03/26/23 05:44 03/26/23 05:44 A&P Assessment and plan (1) Gallstone pancreatitis: (2) Cirrhosis of liver: Plan The patientlikely the passed a stone, as the HIDA scan is normal. Recommend antibiotic therapy for 10 days to be completed with Augmentin twice daily at home I like to see her in 2 weeks to schedule an interval cholecystectomy. She is at increased risk for cholecystectomy due to her advanced liver disease. I explained this to her thoroughly. However I do believe she would benefit from a cholecystectomy after her pancreas has cooled down to prevent possible further pancreatitis. IV fluids Pain control Clear liquid diet Medical management per hospitalist Coding Level of Care Code 47166 Diagnoses Gallstone pancreatitis K85.10 Cirrhosis of liver K74.60
[2023-03-26 11:52] LABS: Glucose Point of Care 144 mg/dL (70-110)
[2023-03-26] MEDS: escitalopram 10 mg Tablet PO (13:53)
[2023-03-26] MEDS: pantoprazole DR 40 mg Tablet PO (13:54)
[2023-03-26] MEDS: HYDROcodone-acetaminophen 7.5-325 mg Tablet 1 TAB PO (14:01)
[2023-03-26 14:55] LABS: CENTROMERE B ANTIBODY <1.0 NEG AI (<1.0 NEG); JO-1 ANTIBODY <1.0 NEG AI (<1.0 NEG); RNP ANTIBODY <1.0 NEG AI (<1.0 NEG); SCL-70 ANTIBODY <1.0 NEG AI (<1.0 NEG); SJOGREN'S ANTIBODY (SS-A) <1.0 NEG AI (<1.0 NEG); SM ANTIBODY <1.0 NEG AI (<1.0 NEG); SS-B <1.0 NEG AI (<1.0 NEG)
--- NOTE | 2023-03-26 15:54 | P.PN_ITS ---
Subjective Subjective: Patient was seen this morning, she has had a bowel movement, has passed gas, her abdominal pain is improving, no fevers, no chills Vitals/I&O/Wt Last Vital Signs Temp 98.3 F 03/26/23 12:23 Pulse 55 L 03/26/23 12:23 Resp 15 03/26/23 12:23 BP 127/64 03/26/23 12:23 Pulse Ox 93 03/26/23 12:23 O2 Del Method Room Air 03/26/23 12:23 03/26/23 03/26/23 03/26/23 06:59 14:59 22:59 Intake Total 1066.667 / 2596.667 1050 / 1050 Output Total 700 / 2300 Balance 366.667 / 158.932 0021 / 1050 Physical Exam Const: COMMON NORMALS: no acute distress and patient oriented x3 Resp: COMMON NORMALS: normal respiratory effort, No retractions, No use of accessory muscles and clear to auscultation bilaterally AUSCULTATION: clear to auscultation bilaterally Cardio: COMMON NORMALS: regular rate, regular rhythm, S1 normal heart sound present and S2 normal heart sound present RATE: regular rate RHYTHM: regular rhythm HEART SOUNDS: S1 normal heart sound present and S2 normal heart sound present GI: OTHER: Abdomen soft, slightly distended, no guarding, no rebound, rigidity, does have diffuse tenderness Extremity: COMMON NORMALS: no pedal edema Neuro: COMMON NORMALS: patient oriented x3 Psych: COMMON NORMALS: mental status grossly normal Data 03/26/23 05:44 03/26/23 05:44 A&P Assessment and plan (1) Acute pancreatitis: -History of TIPS procedure for liver cirrhosis related to hepatitis C, needlestick, status post treatment, ? CT scan abdomen pelvis ?IMPRESSION: 1.? Progression of findings most consistent with acute pancreatitis as compared to 03/05/2023. There is a large amount of edema and fluid surrounding the pancreas and extending into the rudy hepatis and encasing the proximal duodenum. Favor these changes are all due to acute pancreatitis. No GI tract obstruction. 2.? Hydropic gallbladder. Gallbladder has increased in size. No stones are identified by CT. Consider cholecystitis. 3.? Common bile duct at 6.5 mm. Top normal size. No stones are identified within the duct by CT. 4.? Cirrhotic liver. Varices in the LEFT upper abdomen. 5.? No abscess or formed pseudocyst., ? Gallbladder ultrasound IMPRESSION: 1. Abnormal gallbladder. Gallbladder is less distended as compared to the recent CT. Continued wall thickening and small amount of pericholecystic fluid with nonshadowing sludge/tumefactive sludge in the gallbladder. In the correct clinical setting this may represent acute cholecystitis. These findings may also be seen with hepatocellular disease. 2. Cirrhosis. 3. Common bile duct is top normal size. No stones are identified within the duct., ? AST 61, ? ALT 41, ? Lipase 1352 ? Plan ? Transition to clears ? Serial abdominal exams, ? IV fluids, ? Dilaudid 0.5 mg IV push every 4 hours as needed for pain, ? Zofran, Reglan for nausea, ? Continue Zosyn for antibiotic coverage,, ? Concerns for possibilities, keep n.p.o., replace electrolytes, ? Concerns for possible acute cholecystitis, consulted general surgery, HIDA scan results pending, continue Zosyn, ? Full code, ? Lovenox for DVT prophylaxis (2) HTN (hypertension): Primary hypertension, chronically on amlodipine, blood pressure normal/low normal range at admission. 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 Status post hep C treatment. Has associated para-esophageal varicies, no history of variceal bleeding. Currently only mild AST elevation. Normal albumin. Review of records shows no elevated ammonia, small ascites only at times. (4) Depression: With generalized anxiety disorder, chronically on escitalopram and takes trazodone to help with sleep (5) Ileus: (6) Cholecystitis: Plan History of using narcotics and benzodiazepines [facility] previously, clean for ~3 years other than prescribed medications. History of renal mass noted on prior imaging in 08/2022, was referred for Abd MRI but never completed, CT today with renal cysts noted Recheck labs in am PPI Accuchecks and sliding scale insulin if needed, A1c was 4.8 in 10/2022 Stool softeners/laxatives Currently holding home amlodipine with present blood pressures and use of narcotic pain medications We will continue patient's home escitalopram and trazodone VTE prophylaxis: SCDs, patient refuses pharmocological prophylaxis GI Prophylaxis: PPI Telemetry: ordered to monitor for rhythm changes in first 24-48 hours of admission given pancreatitis Mcgovern: not currently indicated though need to monitor urine output Line(s): peripheral IVs Disposition plan: Home with outpatient follow up to Dr Amaya, may benefit from referral to GI given recurrent pancreatitis without clear etiology, prior hepatic history. Code Status: Full Code Supportive care otherwise Findings, concerns and plans were discussed with patient and they were given an opportunity to ask questions. We also talked about the pancreas, what it's function is and relation to food, pancreatitis, potential causes (as outlined in A&P) management both acutely and longer term. Plan for today continue antibiotics, transition to clears, serial abdominal exams, HIDA scan, IV fluids, await surgery's recommendations Attestations Medical Necessity Statement*: Patient requires hospitalization for pancreatitis, concerns for cholecystitis, ileus, Diagnoses Acute pancreatitis K85.90 HTN (hypertension) I10 Cirrhosis of liver K74.60 Depression F32.9 Ileus K56.7 Cholecystitis K81.9
[2023-03-26] MEDS: HYDROmorphone 1 mg/mL INJ 1 mL IVP ×2 (17:11→20:22)
[2023-03-26] MEDS: sennosides 8.6 mg Tablet 17.2 MG PO (20:23)
[2023-03-27] VITALS (7 sets, daily range): BP systolic 118–127; BP diastolic 78–83; PULSE 52–62; RESP 16; TEMP 36.7; O2SAT 95–98
[2023-03-27] MEDS: HYDROmorphone 1 mg/mL INJ 1 mL IVP ×2 (01:22→08:18)
[2023-03-27] MEDS: piperacillin-tazobactam 3.375 GM in sodium chloride 0.9% (plus) 50 ML IV ×2 (01:23→08:18)
[2023-03-27] MEDS: sodium chlor 0.9% + KCl 20 mEq 20 MEQ/1,000 ML BAG 125 MEQ IV (01:24)
[2023-03-27] MEDS: metoclopramide 5 mg/mL SDV 2 mL IVP (02:20)
[2023-03-27 06:51] LABS: Basophils % 0.8 %; Eosinophils # 0.1 10^3/uL (0.0-0.8); Eosinophils % 5.4 %; Lymphocytes # 0.8 10^3/uL (0.8-4.8); Lymphocytes % 30.4 %; Mean Corpuscular HGB Conc 32.1 g/dL (30-55); Mean Corpuscular Hemoglobin 27.6 pg (27-33); Mean Corpuscular Volume 86.1 fl (85-98); Mean Platelet Volume 12.2 fL (7.4-10.4); Monocytes # 0.3 10^3/uL (0.2-0.9); Monocytes % 12.3 %; Neutrophils # 1.32 10^3/uL (1.8-7.7); Neutrophils % 50.7 %; Nucleated Red Blood Cells % 0 %; Platelet Count 107 10^3/cmm (157-399); Red Blood Count 3.95 10^6/uL (3.85-5.65); Red Cell Distribution Width 13.2 % (12.1-15.1)
[2023-03-27 07:13] LABS: Lipase 198 U/L (13-60)
[2023-03-27 07:16] LABS: Alanine Aminotransferase 19 U/L (0-33); Albumin Level 3.1 g/dL (3.5-5.2); Alkaline Phosphatase 55 U/L (35-105); Anion Gap 13.1 (5-19); Aspartate Amino Transferase 22 U/L (0-32); Blood Urea Nitrogen 3 mg/dL (8-23); Calcium 8.3 mg/dL (8.5-10.5); Carbon Dioxide 21 mmol/L (22-29); Chloride 110 mmol/L (98-107); Globulin 2.9 g/dL (1.3-4.6); Glucose 92 mg/dL (65-115); Magnesium 1.9 mg/dL (1.7-2.3); Osmolality Calculated 286 mOsm/kg (285-295); Phosphorus 2.9 mg/dL (2.5-4.5); Potassium 4.1 mmol/L (3.5-5.1); Sodium 140 mmol/L (136-145); Total Bilirubin 0.5 mg/dL (0.15-1.2)
[2023-03-27] MEDS: docusate sodium 100 mg Capsule PO (08:18)
[2023-03-27] MEDS: ondansetron 2 mg/ML SDV 2 mL 4 MG IVP (10:22)
[2023-03-27] MEDS: HYDROcodone-acetaminophen 7.5-325 mg Tablet 1 TAB PO (11:37)
[2023-03-27 11:54] LABS: ANA SCREEN, IFA NEGATIVE (NEGATIVE)
[2023-03-27 12:05] LABS: COMPLEMENT COMPONENT C3C 110 mg/dL (83-193); COMPLEMENT COMPONENT C4C 21 mg/dL (15-57)
--- NOTE | 2023-03-27 12:20 | P.DS_ITS ---
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 She has a history of her first episode of pancreatitis last month.? Specific etiology was not determined.? She denies any recent medication changes.? No significant history of alcohol use.? No family history of pancreatitis. She had some gallbladder sludge and gallstones noted during previous evaluation.? She does not have known hyperlipidemia.? No recent infections.? She does have a history of hepatitis C and has had TIPS procedure approximately 5 years ago.? She did undergo treatment for hepatitis C.? After she went home she was doing better but the pain has never really gone completely away.? She denies eating fried or fatty foods.? The pain in her right upper quadrant started worsening about a week ago.? It radiates through to her back her right flank and down into her right lower quadrant.? She has had nausea but no vomiting.? She denies any changes in bowel movement.? Last bowel movement was this morning.? No hematemesis or hematochezia, no melena.? Pain had been mod erate in intensity but was worsening to the point today it was rated at a 10 out of 10.? In the emergency room she was found to have a lipase Of 3784.? During her last hospital stay,? lipase was as high as 40-65.? At discharge on March 08 it was around 1260.? Pain has improved to 8/10 with fluids and medication administered in ER.? She is being admitted for treatment and monitoring. Vitals are currently stable. This is a 62-year-old female who presents [facility] for acute pancreatitis, with concerns for gallstone pancreatitis, was admitted to general medical floors, received IV fluids, antibiotics, pain control, bowel rest, general surgery was consulted, HIDA scan within normal limits, likely patient passed gallstone, was clinically monitored, overall clinically improved. Will be discharged on hydrocodone to be used sparingly for pain control, clear liquid diet, Augmentin for antibiotic coverage, slowly advance diet as tolerated, follow up with general surgery in 2 weeks for consideration of cholecystectomy. Patient was advised if she has any recurrent abdominal pain to go to the emergency room. Physical Exam Const: COMMON NORMALS: no acute distress and patient oriented x3 Resp: COMMON NORMALS: normal respiratory effort, No retractions, No use of accessory muscles and clear to auscultation bilaterally AUSCULTATION: clear to auscultation bilaterally Cardio: COMMON NORMALS: regular rate, regular rhythm, S1 normal heart sound present and S2 normal heart sound present RATE: regular rate RHYTHM: regular rhythm HEART SOUNDS: S1 normal heart sound present and S2 normal heart sound present GI: COMMON NORMALS: Normal to inspection, nondistended, normoactive bowel sounds present and non-tender Extremity: COMMON NORMALS: no pedal edema Neuro: COMMON NORMALS: patient oriented x3 Psych: COMMON NORMALS: mental status grossly normal Discharge Data Studies Completed and Pending Completed Studies During Hospitalization Category Date Time Status CT abdomen pelvis w con* [id number] Stat Cat Scan 03/24/23 13:11 Completed NM hepatobiliary w phar* [id number] Routine Nuc Med 03/26/23 08:13 Completed US gall bladder [id number] Routine Ultrasound 03/24/23 19:44 Completed Pending at discharge Category Date Time Status JEAN-PIERRE Profile Rheumatology Stat Lab 03/25/23 09:26 Results Complete Blood Count w/Auto AM LABS Lab 03/28/23 04:00 Ordered Comprehensive Metabolic Panel AM LABS Lab 03/28/23 04:00 Ordered HIV 1&2 Antigen & Antibody Routine Lab 03/25/23 04:10 Received Hepatitis C RNA Viral Load Qnt Routine Lab 03/25/23 09:45 Received Lipase AM LABS Lab 03/28/23 04:00 Ordered Magnesium AM LABS Lab 03/28/23 04:00 Ordered Phosphorus AM LABS Lab 03/28/23 04:00 Ordered Laboratory Results WBC 2.60 10^3/uL (3.29-11.43) L 03/27/23 05:58 RBC 3.95 10^6/uL (3.85-5.65) 03/27/23 05:58 Hgb 10.90 g/dL (11.27-16.99) L 03/27/23 05:58 Hct 34.0 % (36-47) L 03/27/23 05:58 MCV 86.1 fl (85-98) 03/27/23 05:58 MCH 27.6 pg (27-33) 03/27/23 05:58 MCHC 32.1 g/dL (30-55) 03/27/23 05:58 RDW 13.2 % (12.1-15.1) 03/27/23 05:58 Plt Count 107 10^3/cmm (157-399) L 03/27/23 05:58 MPV 12.2 fL (7.4-10.4) H 03/27/23 05:58 Neut % (Auto) 50.7 % 03/27/23 05:58 Lymph % (Auto) 30.4 % 03/27/23 05:58 [place] % (Auto) 12.3 % 03/27/23 05:58 Eos % (Auto) 5.4 % 03/27/23 05:58 Baso % (Auto) 0.8 % 03/27/23 05:58 Neut # (Auto) 1.32 10^3/uL (1.8-7.7) L 03/27/23 05:58 Lymph # (Auto) 0.8 10^3/uL (0.8-4.8) 03/27/23 05:58 [place] # (Auto) 0.3 10^3/uL (0.2-0.9) 03/27/23 05:58 Eos # (Auto) 0.1 10^3/uL (0.0-0.8) 03/27/23 05:58 Baso # (Auto) 0.0 10^3/uL (0.0-0.1) 03/27/23 05:58 Nucleated RBC % (auto) 0 % 03/27/23 05:58 Nucleated RBCs # 0.0 /100WBC 03/27/23 05:58 ESR 8 mm/hr (0-15) 03/25/23 04:10 PT 15.30 SECONDS (12.1-14.9) H 03/25/23 04:10 INR 1.17 (0.8-1.2) 03/25/23 04:10 APTT 29.4 SECONDS (23.9-36.7) 03/25/23 04:10 Sodium 140 mmol/L (136-145) 03/27/23 05:58 Potassium 4.1 mmol/L (3.5-5.1) 03/27/23 05:58 Chloride 110 mmol/L (98-107) H 03/27/23 05:58 Carbon Dioxide 21 mmol/L (22-29) L 03/27/23 05:58 Anion Gap 13.1 (5-19) 03/27/23 05:58 BUN 3 mg/dL (8-23) L 03/27/23 05:58 Creatinine 0.6 mg/dL (0.5-0.9) 03/27/23 05:58 GFR Calculation 101.0 mL/min (90-130) 03/27/23 05:58 Glucose 92 mg/dL (65-115) 03/27/23 05:58 POC Glucose 144 mg/dL (70-110) H 03/26/23 11:14 Calculated Osmolality 286 mOsm/kg (285-295) 03/27/23 05:58 Calcium 8.3 mg/dL (8.5-10.5) L 03/27/23 05:58 Phosphorus 2.9 mg/dL (2.5-4.5) 03/27/23 05:58 Magnesium 1.9 mg/dL (1.7-2.3) 03/27/23 05:58 Total Bilirubin 0.5 mg/dL (0.15-1.2) 03/27/23 05:58 GGT 44 U/L (5-36) H 03/25/23 04:10 AST 22 U/L (0-32) 03/27/23 05:58 ALT 19 U/L (0-33) 03/27/23 05:58 Alkaline Phosphatase 55 U/L (35-105) 03/27/23 05:58 Ammonia 31 umol/L (11-51) 03/25/23 09:26 C-Reactive Protein 4.5 mg/L (0.0-4.9) 03/25/23 04:10 Total Protein 6.0 g/dL (6.6-8.7) L 03/27/23 05:58 Albumin 3.1 g/dL (3.5-5.2) L 03/27/23 05:58 Globulin 2.9 g/dL (1.3-4.6) 03/27/23 05:58 Triglycerides 58 mg/dL (0-150) 03/24/23 12:50 Lipase 198 U/L (13-60) H 03/27/23 05:58 Procalcitonin 0.12 ng/mL (0-0.5) 03/25/23 04:10 Urine Color Yellow (Yellow) 03/24/23 21:31 Urine Appearance Clear (CLEAR) 03/24/23 21:31 Urine pH 8 (5-7) H 03/24/23 21:31 Ur Specific [place] 1.015 (1.005-1.030) 03/24/23 21:31 Urine Protein Neg (Negative) 03/24/23 21:31 Urine Glucose (UA) Norm (Normal) 03/24/23 21:31 Urine Ketones Negative (Negative) 03/24/23 21:31 Urine Blood Neg (Negative) 03/24/23 21:31 Urine Nitrate Negative (Negative) 03/24/23 21:31 Urine Bilirubin Neg (Negative) 03/24/23 21:31 Prot Sulfosalicylic Acd Negative (Negative) 03/24/23 21:31 Urine Urobilinogen 1 mg/dL (Negative) H 03/24/23 21:31 Ur Leukocyte Esterase Negative (Negative) 03/24/23 21:31 JEAN-PIERRE IFA Animal Tis Res Negative (NEGATIVE) 03/25/23 09: ALE-1 Antibody <1.0 neg AI (<1.0 NEG) 03/25/23 09: SS-A Antibody <1.0 neg AI (<1.0 NEG) 03/25/23 09: SS-B Antibody <1.0 neg AI (<1.0 NEG) 03/25/23 09: Sm (Vazquez) Antibody <1.0 neg AI (<1.0 NEG) 03/25/23 09:26 DOCTOR OF [place] Antibody <1.0 neg AI (<1.0 NEG) 03/25/23 09: Scl-70 Antibody <1.0 neg AI (<1.0 NEG) 03/25/23 09:26 Centromere B Antibody <1.0 neg AI (<1.0 NEG) 03/25/23 09:26 Complement C3c 110 mg/dL (83-193) 03/25/23 09:26 Complement C4c 21 mg/dL (15-57) 03/25/23 09:26 Hepatitis A IgM Ab Non-reactive (Nonreactive) 03/25/23 04:10 Hep Bs Antigen Non-reactive (Nonreactive) 03/25/23 04:10 Hep B Core IgM Ab Non-reactive (Nonreactive) 03/25/23 04:10 Hepatitis C Antibody Reactive (Nonreactive) H 03/25/23 04:10 HCV RNA Qnt PCR Amp&Det Cancelled 03/24/23 12:50 HCV RNA (PCR) IUs/ml Cancelled 03/24/23 12:50 HCV RNA (PCR) IU log10 Cancelled 03/24/23 12:50 Vitals Last Vital Signs Temp 981 F H 03/27/23 07:48 Pulse 52 L 03/27/23 11:36 Resp 16 03/27/23 11:36 BP 127/83 03/27/23 11:36 Pulse Ox 98 03/27/23 11:36 O2 Del Method Room Air 03/27/23 11:36 O2 Flow Rate 0 03/26/23 16:00 Discharge Plan Discharge Patient Disposition: Home Condition: Stable Prescriptions: New hydrocodone-acetaminophen 7.5-325 mg Tablet 1 tab PO Q6H PRN (Reason: Moderate Pain) 7 Days Qty: 28 0RF amoxicillin-pot clavulanate 875-125 mg tablet 1 tab PO Q12H 10 Days Qty: 20 0RF Continued trazodone 50 mg tablet 50 mg PO BEDTIME Rx Instructions: not started as of 03/24/23 ondansetron HCl 4 mg tablet 4 mg PO Q8H PRN (Reason: Nausea And Vomiting) amlodipine 10 mg tablet 10 mg PO DAILY@14 pantoprazole 40 mg tablet,delayed release (DR/EC) 40 mg PO DAILY@14 dicyclomine 10 mg capsule 10 mg PO TID PRN (Reason: Cramps) escitalopram oxalate 10 mg tablet 10 mg PO DAILY@14 Colace 100 mg Capsule 100 mg PO DAILY PRN (Reason: Constipation) Discharge Orders: Discharge Order (Routine); Ordered 03/27/23 Ordered By: Alexys Belcher Referrals: Mehdi Brooks DO [Physician] - 2 weeks Darius Marie MD [Physician] - Discharge Diet: Clear Liquid Discharge Activity: Resume usual activity Patient Instructions: Cholecystitis (DC), Pancreatitis (DC), Low Fat Diet (DC), Opioid Safety Activity Restrictions/Additional Instructions: - Please use hydrocodone sparingly for pain, do not drive operate machinery or drink while taking medication, ? Please hydrate well, drink plenty of electrolyte balanced fluids -Please continue clear liquids for at least another 24 hours, slowly advance diet, aim for a low-fat, low sugar diet, ? If you have recurrent abdominal pain please come back to the emergency room ? Follow-up with general surgery 2 weeks Discharge Attestations Time Spent in Discharge Care*: greater than 30 min Status at Discharge: Cognitive status at discharge: cognitively intact , Behavioral status at discharge: cooperative , Quality Metrics Clinical Quality Measures [ No reported AMI, CVA or VTE this stay] Coding Level of Care Code 54433 Total time (in minutes) for Discharge: 45 Diagnoses Acute pancreatitis K85.90 HTN (hypertension) I10 Cirrhosis of liver K74.60 Depression F32.9 Ileus K56.7 Cholecystitis K81.9
--- NOTE | 2023-03-27 12:25 | PM.PN ---
Subjective Subjective: Patient seen and examined. Tolerating clear liquid diet. Pain much improved Vitals/I&O/Wt Last Vital Signs Temp 981 F H 03/27/23 07:48 Pulse 52 L 03/27/23 11:36 Resp 16 03/27/23 11:36 BP 127/83 03/27/23 11:36 Pulse Ox 98 03/27/23 11:36 O2 Del Method Room Air 03/27/23 11:36 O2 Flow Rate 0 03/26/23 16:00 03/26/23 03/27/23 03/27/23 22:59 06:59 14:59 Intake Total 1275.417 / 2325.417 906.25 / 3231.667 240 / 240 Balance 1275.417 / 2325.417 906.25 / 3231.667 240 / 240 Physical Exam Narrative: General: No acute distress, awake alert and oriented x3 Abdomen: Soft, nondistended, improved tenderness to palpation over epigastrium, no guarding rebound or masses Data 03/27/23 05:58 03/27/23 05:58 A&P Assessment and plan (1) Gallstone pancreatitis: (2) Cirrhosis of liver: Plan The patientlikely the passed a stone, as the HIDA scan is normal. Recommend antibiotic therapy for 10 days to be completed with Augmentin twice daily at home I like to see her in 2 weeks to schedule an interval cholecystectomy. She is at increased risk for cholecystectomy due to her advanced liver disease. I explained this to her thoroughly. However I do believe she would benefit from a cholecystectomy after her pancreas has cooled down to prevent possible further pancreatitis. IV fluids Pain control Full liquid diet Socially stable for discharge Follow-up my office in 2 weeks Medical management per hospitalist Attestations Medical Necessity Statement*: Her primary Coding Level of Care Code 11960 Diagnoses Gallstone pancreatitis K85.10 Cirrhosis of liver K74.60
--- NOTE | 2023-03-27 13:13 | PC.SOCIAL ---
Pg 2 IMM Explained to pt Pg 2 IMM. No questions voiced. Provided pt a copy. Initialed, dated, & timed a copy & placed in chart.
[2023-03-27] MEDS: pantoprazole DR 40 mg Tablet PO (14:17)
[2023-03-27] MEDS: escitalopram 10 mg Tablet PO (14:18)
[2023-03-27 14:19] LABS: HEP C RNA Viral Load Quant <1.18 NOT DETECTED Log IU/mL (NOT DETECTED); HEP C RNA Viral Load Quant <15 NOT DETECTED IU/mL (NOT DETECTED)
[2023-03-27 14:35] LABS: COMPLEMENT, TOTAL (CH50) 57 U/mL (31-60)
[2023-03-27 14:54] LABS: THYROID PEROXIDASE ANTIBODIES <1 IU/mL (<9)
[2023-03-31 23:39] LABS: DNA AB (DS) CRITHIDIA,IFA NEGATIVE (NEGATIVE)
[2023-04-21 13:44] LABS: HIV 1 & 2 Antibody Non-Reactive (Non-Reactiv); HIV 1 & 2 Antigen Non-Reactive (Non-Reactiv)
== END 2023-03-27 14:41 | disposition home or self-care (01) | DRG 439 ==
LOC: ER 14:27 → MEDSURG 15:38
PROVIDERS: Admitting Provider Hospitalist; Emergency Provider Family Medicine; PCP Family Medicine; Visit Provider Family Medicine
DX: K85.10 Biliary acute pancreatitis without necrosis or infection (principal); K56.7 Ileus, unspecified; K74.60 Unspecified cirrhosis of liver; F41.1 Generalized anxiety disorder; I10 Essential (primary) hypertension; F17.210 Nicotine dependence, cigarettes, uncomplicated; F32.A Depression, unspecified; K59.00 Constipation, unspecified; Z86.19 Personal history of other infectious and parasitic diseases; Z85.828 Personal history of other malignant neoplasm of skin
CPT/HCPCS: 36415; 36416; 74177; 76705; 78227; 80053; 80074; 81003; 82140; 82962; 82977; 83690; 83735; 84100; 84145; 84478; 85025; 85610; 85651; 85730; 86140; 86160; 86162; 86235; 86255; 86376; 87522; 87806; 96374; 96375; 96376; 99285; A9537; J1170; J1650; J1885; J2270; J2405; J2543; J2765; J3480; J7030; J7060; Q9967

== ENCOUNTER → 2023-04-02 09:09 | Outpatient (BNVA) | payer MEDICARE, MEDICAID, SELFPAY | PROVIDERS: PCP Family Medicine; Visit Provider Surgery | DX: K85.10 Biliary acute pancreatitis without necrosis or infection; K74.60 Unspecified cirrhosis of liver | CPT/HCPCS: 99204 ==

== ENCOUNTER 2023-04-15 15:45 | Inpatient (IN) | payer MEDICARE, MEDICAID, SELFPAY ==
[2023-04-15] VITALS (9 sets, daily range): BP systolic 128–165; BP diastolic 65–96; PULSE 71–91; RESP 16–18; TEMP 36.8; O2SAT 97–99; BMI 24.0
[2023-04-15] MEDS: sodium chloride 0.9% 1,000 ML 999 ML IV (16:00)
[2023-04-15 16:07] LABS: Basophils % 0.7 %; Eosinophils # 0.2 10^3/uL (0.0-0.8); Eosinophils % 3.5 %; Hematocrit 42.2 % (36-47); Lymphocytes # 1.8 10^3/uL (0.8-4.8); Lymphocytes % 30.5 %; Mean Corpuscular HGB Conc 33.2 g/dL (30-55); Mean Corpuscular Hemoglobin 27.8 pg (27-33); Mean Corpuscular Volume 83.7 fl (85-98); Mean Platelet Volume 11.7 fL (7.4-10.4); Monocytes # 0.4 10^3/uL (0.2-0.9); Monocytes % 6.7 %; Neutrophils # 3.47 10^3/uL (1.8-7.7); Neutrophils % 58.4 %; Nucleated Red Blood Cells % 0 %; Platelet Count 202 10^3/cmm (157-399); Red Blood Count 5.04 10^6/uL (3.85-5.65); Red Cell Distribution Width 13.1 % (12.1-15.1); White Blood Count 5.94 10^3/uL (3.29-11.43)
--- NOTE | 2023-04-15 16:07 | ECG_ITS ---
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 Measurements Intervals [place] Rate: 76 P: 64 DE: 124 QRS: 70 QRSD: 70 T: 72 QT: 398 QTc: 449 Interpretive Statements SINUS RHYTHM SEPTAL MYOCARDIAL INFARCTION , OF INDETERMINATE AGE [40+ ms Q WAVE IN V1/V2] Compared to ECG 02/06/2021 22:45:46 Myocardial infarct finding now present Sinus bradycardia no longer present Electronically Signed On 04-16-2023 16:41:00 PASTE MAKER by Yin Oliver M.D. [id number]
--- NOTE | 2023-04-15 16:13 | ED_ITS ---
HPI - Abdominal Pain 2 General: Chief Complaint: Abdominal Pain Stated Complaint: Abd Pain Time Seen by Provider: 04/15/23 15:46 Source: patient Mode of arrival: ambulatory History of Present Illness: 59-year-old female who presents emergenc y room with epigastric left upper quadrant abdominal pain. Patient has a history of cirrhosis of liver previously had TIPS procedure. She has had several ER visits and hospitalizations with pancreatitis. She will consider for acute cholecystitis based on imaging surgery consultation performed and they recommended treating with antibiotics and scheduling interval cholecystectomy. MD elicited complaint: abdominal pain Onset (ago): minute(s) Pain Consistency: constant Location: Epigastric and LUQ Severity: severe Quality: sharp Radiation: back Exacerbating factors: nothing Relieving factors: nothing Associated Symptoms: Reports nausea and vomiting; Denies anorexia, belching, bloating, change in bowel habits, change in stool character, chills, coffee ground emesis, constipation, GI cramping, diarrhea, dyspepsia, dysuria, excessive flatus, fever(s), heartburn, hematochezia, hematuria, hematemesis, fecal incontinence, loose stools, melena, poor appetite and syncope Review of Systems 2 Const: Denies: fever(s), chills, fatigue or malaise Card: Denies: chest pain, palpitations, irregular heart rhythm or syncope Resp: Denies: dyspnea GI: Reports: abdominal pain, nausea and vomiting; Denies: hematemesis, coffee ground emesis, heartburn, diarrhea, constipation, bloating, GI cramping, belching, excessive flatus, fecal incontinence, change in bowel habits, change in stool character, hematochezia or melena : Denies: dysuria, urinary frequency, urinary urgency or hematuria Musc: Denies: neck pain or back pain Skin/Breast: Denies: rash PFSH ED 2 PFSH: Medical History Renal mass Basal cell carcinoma (BCC) Chronic right shoulder pain Chronic neck pain Constipation Diverticulosis of colon Generalized anxiety disorder Cirrhosis of liver History of past hepatitis C that was treated, 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 Cervical radiculopathy Herniation of left side of L4-L5 intervertebral disc HTN (hypertension) Depression Degenerative disk disease 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, 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 Surgical History History of hysterectomy S/P TIPS (transjugular intrahepatic portosystemic shunt) History of neck surgery Family History Mother Heart problem Brother Heart problem Denies family history of Pancreatitis Social History Smoking and tobacco/nicotine status: current every day tobacco/nicotine user cigarettes [ Other cigarette details: 4-5 cigarettes per day] Second hand smoke exposure: Yes Alcohol intake: never Substance/Drug Use: never Physical Exam 2 Const: GENERAL APPEARANCE: cooperative and comfortable O RIENTATION/CONSCIOUSNESS: Yes awake, Yes oriented to person, Yes oriented to place and Yes oriented to time HENMT: COMMON NORMALS: normocephalic, atraumatic and hearing grossly normal bilaterally HEAD & SCALP: normocephalic and atraumatic Resp: COMMON NORMALS: normal respiratory effort, No retractions, No use of accessory muscles and clear to auscultation bilaterally AUSCULTATION: clear to auscultation bilaterally Cardio: COMMON NORMALS: regular rate, regular rhythm and No murmurs present (Cardio) RATE: regular rate RHYTHM: regular rhythm GI: COMMON NORMALS: No hepatosplenomegaly present AUSCULTATION: Yes normoactive bowel sounds PALPATION: Yes Tenderness to palpation present (GI) (Epigastric left upper quadrant), No Guarding due to palpation present (GI) and Yes No hepatosplenomegaly present Extremity: COMMON NORMALS: normal to inspection, capillary refill normal, no clubbing, cyanosis or edema, no calf tenderness and no pedal edema Neuro: SENSORIUM/ORIENTATION: Yes oriented to person, Yes oriented to place and Yes oriented to time Skin: COMMON NORMALS: no rashes or lesions noted GENERAL SKIN EXAM: no rashes or lesions noted Course 2 Vital Signs: Vital signs: Vital Signs Temperature 97.4 F L 04/24/23 13:46 Pulse Rate 92 04/24/23 13:46 Respiratory Rate 16 04/24/23 13:46 Blood Pressure 170/95 04/24/23 13:46 Pulse Oximetry 94 04/24/23 13:46 Oxygen Delivery Me thod Room Air 04/24/23 11:35 Oxygen Flow Rate 4 04/23/23 13:15 MDM - Abdominal Pain Medical Decision Making Acute pancreatitis there is a polyp in the gallbladder but no stones. She has a remote history of a TIPS procedure done around 5 years ago. Discussed with hospitalist admit for acute pancreatitis orders written Medical Records I reviewed the patient's medical records. Lab Data I reviewed the patient's lab results. 04/24/23 04:23 04/24/23 04:23 Labs/Radiology: Radiology Impressions Abdomen/Pelvis CT 04/15/23 17:20 IMPRESSION: No acute abdominal findings. Abdomen Ultrasound 04/15/23 18:25 IMPRESSION: 1. 5.6 mm suspected gallbladder polyp, negative for cholecystitis. 2. Spleen somewhat prominent at 14 cm. Laboratory Results WBC 4.07 10^3/uL (3.29-11.43) 04/16/23 04:55 RBC 4.22 10^6/uL (3.85-5.65) 04/16/23 04:55 Hgb 11.60 g/dL (11.27-16.99) 04/16/23 04:55 Hct 36.1 % (36-47) 04/16/23 04:55 MCV 85.5 fl (85-98) 04/16/23 04:55 MCH 27.5 pg (27-33) 04/16/23 04:55 MCHC 32.1 g/dL (30-55) 04/16/23 04:55 RDW 13.1 % (12.1-15.1) 04/16/23 04:55 Plt Count 135 10^3/cmm (157-399) L D 04/16/23 04:55 MPV 11.0 fL (7.4-10.4) H 04/16/23 04:55 Neut % (Auto) 50.9 % 04/16/23 04:55 Lymph % (Auto) 35.9 % 04/16/23 04:55 [place] % (Auto) 7.1 % 04/16/23 04:55 Eos % (Auto) 5.2 % 04/16/23 04:55 Baso % (Auto) 0.7 % 04/16/23 04:55 Neut # (Auto) 2.07 10^3/uL (1.8-7.7) 04/16/23 04:55 Lymph # (Auto) 1.5 10^3/uL (0.8-4.8) 04/16/23 04:55 [place] # (Auto) 0.3 10^3/uL (0.2-0.9) 04/16/23 04:55 Eos # (Auto) 0.2 10^3/uL (0.0-0.8) 04/16/23 04:55 Baso # (Auto) 0.0 10^3/uL (0.0-0.1) 04/16/23 04:55 Nucleated RBC % (auto) 0 % 04/16/23 04:55 Nucleated RBCs # 0.0 /100WBC 04/16/23 04:55 PT 15.80 SECONDS (12.1-14.9) H 04/16/23 04:55 INR 1.22 (0.8-1.2) H 04/16/23 04:55 Sodium 143 mmol/L (136-145) 04/16/23 04:55 Potassium 3.4 mmol/L (3.5-5.1) L 04/16/23 04:55 Chloride 111 mmol/L (98-107) H 04/16/23 04:55 Carbon Dioxide 22 mmol/L (22-29) 04/16/23 04:55 Anion Gap 13.4 (5-19) 04/16/23 04:55 BUN 10 mg/dL (8-23) 04/16/23 04:55 Creatinine 0.5 mg/dL (0.5-0.9) 04/16/23 04:55 GFR Calculation 124.2 mL/min (90-130) 04/16/23 04:55 Glucose 82 mg/dL (65-115) 04/16/23 04:55 Estimat Average Glucose 94 04/15/23 15:57 Hemoglobin A1c 4.9 % (4.0-6.0) 04/15/23 15:57 Calculated Osmolality 294 mOsm/kg (285-295) 04/16/23 04:55 Lactic Acid 1.8 mmol/L (0.5-2.2) 04/15/23 15:57 Calcium 8.3 mg/dL (8.5-10.5) L 04/16/23 04:55 Phosphorus 2.8 mg/dL (2.5-4.5) 04/16/23 04:55 Magnesium 1.9 mg/dL (1.7-2.3) 04/16/23 04:55 Total Bilirubin 0.8 mg/dL (0.15-1.2) 04/16/23 04:55 AST 18 U/L (0-32) 04/16/23 04:55 ALT 12 U/L (0-33) 04/16/23 04:55 Alkaline Phosphatase 54 U/L (35-105) 04/16/23 04:55 C-Reactive Protein 3.0 mg/L (0.0-4.9) 04/15/23 15:57 Total Protein 5.9 g/dL (6.6-8.7) L 04/16/23 04:55 Albumin 3.7 g/dL (3.5-5.2) 04/16/23 04:55 Globulin 2.2 g/dL (1.3-4.6) 04/16/23 04:55 Triglycerides 102 mg/dL (0-150) 04/15/23 15:57 Triglycerides 103 mg/dL (0-150) 04/15/23 15:57 Cholesterol 155 mg/dL (0-200) 04/15/23 15:57 LDL Cholesterol, Calc 80 mg/dL (50-129) 04/15/23 15:57 HDL Cholesterol 54 mg/dL (60-100) L 04/15/23 15:57 LDL/HDL Ratio 1.48 RATIO (0.00-3.22) 04/15/23 15:57 Cholesterol/HDL Ratio 2.87 mg/dL (0.0-4.40) 04/15/23 15:57 Lipase 240 U/L (13-60) H 04/15/23 15:57 Procalcitonin 0.03 ng/mL (0-0.5) 04/15/23 15:57 TSH 0.98 uIU/mL (0.27-4.20) 04/15/23 15:57 Urine Color Yellow (Yellow) 04/15/23 18:27 Urine Appearance Clear (CLEAR) 04/15/23 18:27 Urine pH 6.5 (5-7) 04/15/23 18: Ur Specific [place] 1.015 (1.005-1.030) 04/15/23 18:27 Urine Protein Neg (Negative) 04/15/23 18:27 Urine Glucose (UA) Norm (Normal) 04/15/23 18:27 Urine Ketones Negative (Negative) 04/15/23 18:27 Urine Blood Neg (Negative) 04/15/23 18:27 Urine Nitrate Negative (Negative) 04/15/23 18:27 Urine Bilirubin Neg (Negative) 04/15/23 18:27 Urine Urobilinogen Norm mg/dL (Negative) 04/15/23 18:27 Ur Leukocyte Esterase Negative (Negative) 04/15/23 18:27 All radiology interpretation(s) finalized by discharge Discharge Plan Discharge Patient Disposition: Admitted As Inpatient Admit Provider: Alexys Belcher Clinical Impression: Pancreatitis, Cirrhosis of liver Condition: Stable Discharge Diet: Advance as tolerated Discharge Activity: Resume usual activity Coding Level of Care Code ED Client Insights Consultant for Nadia Poole
[2023-04-15 16:27] LABS: Alanine Aminotransferase 16 U/L (0-33); Albumin Level 4.4 g/dL (3.5-5.2); Alkaline Phosphatase 69 U/L (35-105); Anion Gap 15.8 (5-19); Aspartate Amino Transferase 21 U/L (0-32); Blood Urea Nitrogen 8 mg/dL (8-23); Calcium 9.6 mg/dL (8.5-10.5); Carbon Dioxide 24 mmol/L (22-29); Chloride 105 mmol/L (98-107); Creatinine Clr Calc Pharmacy 58.8052; Globulin 2.9 g/dL (1.3-4.6); Glomerular Filtration Rate 63.2 mL/min (90-130); Glucose 83 mg/dL (65-115); Lipase 240 U/L (13-60); Osmolality Calculated 289 mOsm/kg (285-295); Potassium 3.8 mmol/L (3.5-5.1); Sodium 141 mmol/L (136-145); Total Bilirubin 0.7 mg/dL (0.15-1.2); Total Protein 7.3 g/dL (6.6-8.7)
[2023-04-15] MEDS: morphine 4 mg/mL SDV 1 mL IVP (16:39)
[2023-04-15] MEDS: ketorolac 30 mg/mL INJ IVP (16:39)
[2023-04-15] MEDS: ondansetron 2 mg/ML SDV 2 mL 4 MG IVP ×2 (16:39→22:05)
--- NOTE | 2023-04-15 17:20 | CTR_ITS ---
PROCEDURE INFORMATION: Exam: CT Abdomen And Pelvis Without Contrast Exam date and time: 04/15/2023 5:29 PM Age: 62 years old Clinical indication: Abdominal pain; Generalized; Prior surgery; Surgery date: 6+ months; Surgery type: Hyst, hernia repair; Additional info: Abdominal pain/pancreatitis TECHNIQUE: Imaging protocol: Computed tomography of the abdomen and pelvis without contrast. Radiation optimization: All CT scans at this facility use at least one of these dose optimization techniques: automated exposure control; mA and/or kV adjustment per patient size (includes targeted exams where dose is matched to clinical indication); or iterative reconstruction. REPORTING DATA: Count of CT and Cardiac NM exams in prior 12 months: This patient has received 3 known CTs and 0 known cardiac nuclear medicine studies in the 12 months prior to the current study. COMPARISON: CT abdomen pelvis w con* [id number] 03/24/2023 1:51 PM RADIATION DOSE METRICS: Total DLP (mGy-cm): 480 FINDINGS: Liver: Cirrhotic liver morphology. Gallbladder and bile ducts: No calcified stones. No ductal dilation. Pancreas: No ductal dilation or acute inflammatory changes. Spleen: No splenomegaly. Adrenal glands: No mass. Kidneys and ureters: No hydronephrosis. Stomach and bowel: No obstruction. Appendix: No evidence of appendicitis. Intraperitoneal space: No free air. No significant fluid collection. Vasculature: No abdominal aortic aneurysm. Left upper abdominal varices. Lymph nodes: No enlarged lymph nodes. Urinary bladder: No acute findings. Reproductive: Unremarkable as visualized. Bones/joints: Degenerative changes without acute findings. Soft tissues: Unremarkable. CT/CT abdomen pelvis wo con [id number] IMPRESSION: No acute abdominal findings.
--- NOTE | 2023-04-15 18:18 | PM.HP ---
Providers/Chief Complaint Primary Care Provider: Conrad Amaya Chief Complaint: Abd Pain History of Present Illness Stella Covarrubias is a 62 year old female with a past medical history of pancreatitis, gallstone pancreatitis, history of liver cirrhosis, history of hepatitis C status posttreatment, history of TIPS procedure, who presents to [facility] for abdominal pain for the last 24 hours, patient is a general surgery a few weeks ago, there was plans on outpatient cholecystectomy, for recent hospitalization for gallstone pancreatitis however patient tells for the last 24 hours she was having epigastric discomfort, with nausea, vomiting, is having bowel movements, no fevers, no chills, no lightheadedness, dizziness Review of Systems Const: Denies: fever(s) Card: Denies: chest pain Resp: Denies: dyspnea GI: Reports: abdominal pain, nausea and vomiting; Denies: coffee ground emesis : Denies: flank pain Medications/Allergies Home Medications Medication Instructions Recorded Confirmed Last Taken Type amlodipine 10 mg tablet 10 mg PO DAILY@14 03/05/23 04/02/23 03/23/23 History dicyclomine 10 mg capsule 10 mg PO TID PRN Cramps 03/05/23 04/02/23 03/05/23 10:00 History escitalopram oxalate 10 mg tablet 10 mg PO DAILY@14 mental health 03/05/23 04/02/23 03/23/23 History ondansetron HCl 4 mg tablet 4 mg PO Q8H PRN Nausea And Vomiting 03/05/23 04/02/23 03/05/23 History pantoprazole 40 mg tablet,delayed 40 mg PO DAILY@14 03/05/23 04/02/23 03/23/23 History release trazodone 50 mg tablet 50 mg PO BEDTIME 03/05/23 04/02/23 Unknown History docusate sodium 100 mg capsule 100 mg PO DAILY PRN Constipation 03/24/23 04/02/23 Unknown History (Colace) hydrocodone 7.5 mg-acetaminophen 1 tab PO Q8H PRN pain 7 days #20 04/02/23 04/02/23 Unknown Rx 325 mg tablet tabs Allergies Allergy/AdvReac Type Severity Reaction Status Date / Time prochlorperazine Allergy Intermediate ADR-Irritab Verified 04/15/23 15:56 [From Compazine] le compazine Allergy makes her Uncoded 04/15/23 15:56 want to run PFSH Acute PFSH: Medical History Renal mass Basal cell carcinoma (BCC) Chronic right shoulder pain Chronic neck pain Constipation Diverticulosis of colon Generalized anxiety disorder Cirrhosis of liver History of past hepatitis C that was treated, 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 Cervical radiculopathy Herniation of left side of L4-L5 intervertebral disc HTN (hypertension) Depression Degenerative disk disease 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, 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 Surgical History History of hysterectomy S/P TIPS (transjugular intrahepatic portosystemic shunt) History of neck surgery Family History Mother Heart problem Brother Heart problem Denies family history of Pancreatitis Social History Smoking and tobacco/nicotine status: current every day tobacco/nicotine user cigarettes [ Other cigarette details: 4-5 cigarettes per day] Second hand smoke exposure: Yes Alcohol intake: never Substance/Drug Use: never Vitals/I&O/Wt Last Vital Signs Temp 98.3 F 04/15/23 15:47 Pulse 79 04/15/23 18:16 Resp 18 04/15/23 18:16 BP 145/65 04/15/23 18:16 Pulse Ox 97 04/15/23 18:16 O2 Del Method Room Air 04/15/23 18:16 Weight last 48 hrs Weight 63.503 kg Physical Exam Const: COMMON NORMALS: no acute distress and patient oriented x3 HENMT: COMMON NORMALS: normocephalic HEAD & SCALP: normocephalic Eye: COMMON NORMALS: Equal, round and reactive pupils present and EOMs intact bilaterally Resp: COMMON NORMALS: normal respiratory effort, No retractions, No use of accessory muscles and clear to auscultation bilaterally AUSCULTATION: clear to auscultation bilaterally Cardio: COMMON NORMALS: regular rate, regular rhythm, S1 normal heart sound present and S2 normal heart sound present RATE: regular rate RHYTHM: regular rhythm HEART SOUNDS: S1 normal heart sound present and S2 normal heart sound present GI: COMMON NORMALS: Normal to inspection, nondistended, normoactive bowel sounds present OTHER: Has epigastric discomfort, on palpation, has epigastric discomfort to palpation, no guarding, no rebound, rigidity Extremity: COMMON NORMALS: no pedal edema Neuro: COMMON NORMALS: patient oriented x3, CN's II-XII intact bilaterally, moves all extremities and no focal motor deficits Psych: COMMON NORMALS: mental status grossly normal Data 04/15/23 15:57 04/15/23 15:57 A&P Assessment and plan (1) Cirrhosis of liver: (2) HTN (hypertension): (3) Acute pancreatitis: Plan Pancreatitis, ? With history of gallstone pancreatitis recent hospital discharge and outpatient follow-up for consideration of cholecystectomy, ? History of liver cirrhosis secondary to hep C status posttreatment, history of TIPS procedure, ? Plan -N.p.o. -IV fluids, ? IV Zosyn, ? Serial abdominal exams, ? Ultrasound abdomen ? Monitor LFTs, monitor lipase, ? IV Dilaudid for pain control, ? Zofran for nausea, ? Full code, ? Lovenox for DVT prophylaxis Attestations Medical Necessity Statement*: Patient requires hospitalization, inpatient, greater than 2 midnights, for pancreatitis, with history of gallstone pancreatitis Diagnoses Cirrhosis of liver K74.60 HTN (hypertension) I10 Acute pancreatitis K85.90
--- NOTE | 2023-04-15 18:25 | USR_ITS ---
PROCEDURE INFORMATION: Exam: US Abdomen Complete Exam date and time: 04/15/2023 7:23 PM Age: 62 years old Clinical indication: Abdominal pain; Epigastric; Patient HX: History of cirrhosis, recurrent pancreatitis, seen here 03/24/23 for same symptoms. TECHNIQUE: Imaging protocol: Real-time ultrasound of the abdomen with image documentation. Complete exam. COMPARISON: CT abdomen pelvis wo con [id number] 04/15/2023 5:29 PM FINDINGS: Liver: Normal. No mass. Gallbladder: 5.6 mm suspected gallbladder polyp, negative for cholecystitis. Biliary ducts: Normal. No stones. No dilation. Pancreas: Visualized pancreas is unremarkable. Right kidney: Normal. No mass. No hydronephrosis. Left kidney: Normal. No mass. No hydronephrosis. Spleen: Spleen somewhat prominent at 14 cm. Aorta: Normal. No aneurysm. Inferior vena cava: Normal. US/US abdomen complete* [id number] IMPRESSION: 1. 5.6 mm suspected gallbladder polyp, negative for cholecystitis. 2. Spleen somewhat prominent at 14 cm.
[2023-04-15 18:38] LABS: Triglycerides 102 mg/dL (0-150)
[2023-04-15 18:44] LABS: Add Urine Microscopic? NO; Charge for UA Resulting for Rev
[2023-04-15] MEDS: HYDROmorphone 1 mg/mL INJ 1 mL IVP ×2 (18:53→22:05)
[2023-04-15 19:08] LABS: Procalcitonin 0.03 ng/mL (0-0.5)
[2023-04-15 19:09] LABS: Bilirubin Urine Neg (Negative); Blood Urine Neg (Negative); Glucose Urine UA Norm (Normal); Ketones Urine Negative (Negative); Leukocyte Esterase Urine Negative (Negative); Nitrate Urine Negative (Negative); Protein Urine Neg (Negative); Specific Gravity, Urine 1.015 (1.005-1.030); Urine Appearance Clear (CLEAR); Urine Color Yellow (Yellow); Urobilinogen Urine Norm (Negative); pH Urine 6.5 (5-7)
[2023-04-15 19:23] LABS: Lactic Sepsis W/Reflex 1.8 mmol/L (0.5-2.2)
[2023-04-15] MEDS: piperacillin-tazobactam 3.375 GM in sodium chloride 0.9% (plus) 50 ML IV (22:04)
[2023-04-15] MEDS: pantoprazole 40 mg SDV IVP (22:05)
[2023-04-15] MEDS: sodium chloride 0.9% 1,000 ML 125 ML IV (22:06)
[2023-04-15 22:46] LABS: Chol HDL Ratio 2.87 mg/dL (0.0-4.40); Cholesterol 155 mg/dL (0-200); HDL Cholesterol 54 mg/dL (60-100); LDL Cholesterol Calculated 80 mg/dL (50-129); LDL HDL Ratio 1.48 RATIO (0.00-3.22); Thyroid Stimulating Hormone 0.98 uIU/mL (0.27-4.20); Triglycerides 103 mg/dL (0-150)
[2023-04-15 22:53] LABS: Estmated Average Glucose 94; Hemoglobin A1C 4.9 % (4.0-6.0)
[2023-04-16] VITALS (9 sets, daily range): BP systolic 118–152; BP diastolic 62–81; PULSE 63–75; RESP 16–18; TEMP 36.6–36.8; O2SAT 91–98
[2023-04-16] MEDS: metoclopramide 5 mg/mL SDV 2 mL IVP ×4 (02:12→21:51)
[2023-04-16] MEDS: HYDROmorphone 1 mg/mL INJ 1 mL IVP ×7 (02:13→21:23)
[2023-04-16] MEDS: ondansetron 2 mg/ML SDV 2 mL 4 MG IVP (04:11)
[2023-04-16 05:11] LABS: Basophils % 0.7 %; Eosinophils # 0.2 10^3/uL (0.0-0.8); Eosinophils % 5.2 %; Hematocrit 36.1 % (36-47); Lymphocytes # 1.5 10^3/uL (0.8-4.8); Lymphocytes % 35.9 %; Mean Corpuscular HGB Conc 32.1 g/dL (30-55); Mean Corpuscular Hemoglobin 27.5 pg (27-33); Mean Corpuscular Volume 85.5 fl (85-98); Monocytes # 0.3 10^3/uL (0.2-0.9); Monocytes % 7.1 %; Neutrophils # 2.07 10^3/uL (1.8-7.7); Neutrophils % 50.9 %; Nucleated Red Blood Cells % 0 %; Platelet Count 135 10^3/cmm (157-399); Red Blood Count 4.22 10^6/uL (3.85-5.65); Red Cell Distribution Width 13.1 % (12.1-15.1); White Blood Count 4.07 10^3/uL (3.29-11.43)
[2023-04-16 05:20] LABS: INR 1.22 (0.8-1.2)
[2023-04-16 05:33] LABS: Alanine Aminotransferase 12 U/L (0-33); Albumin Level 3.7 g/dL (3.5-5.2); Alkaline Phosphatase 54 U/L (35-105); Anion Gap 13.4 (5-19); Aspartate Amino Transferase 18 U/L (0-32); Blood Urea Nitrogen 10 mg/dL (8-23); Calcium 8.3 mg/dL (8.5-10.5); Carbon Dioxide 22 mmol/L (22-29); Chloride 111 mmol/L (98-107); Creatinine Clr Calc Pharmacy 104.4747; Globulin 2.2 g/dL (1.3-4.6); Glomerular Filtration Rate 124.2 mL/min (90-130); Glucose 82 mg/dL (65-115); Magnesium 1.9 mg/dL (1.7-2.3); Osmolality Calculated 294 mOsm/kg (285-295); Phosphorus 2.8 mg/dL (2.5-4.5); Potassium 3.4 mmol/L (3.5-5.1); Sodium 143 mmol/L (136-145); Total Bilirubin 0.8 mg/dL (0.15-1.2); Total Protein 5.9 g/dL (6.6-8.7)
[2023-04-16 05:51] LABS: Slide Review Slide Review Perform
[2023-04-16] MEDS: piperacillin-tazobactam 3.375 GM in sodium chloride 0.9% (plus) 50 ML IV ×3 (06:12→22:13)
[2023-04-16] MEDS: sodium chloride 0.9% 1,000 ML 125 ML IV ×3 (06:13→20:59)
[2023-04-16] MEDS: lidocaine 1% 5 ML in potassium chloride premix 100 ML 26.25 ML IV (08:47)
[2023-04-16] MEDS: pantoprazole 40 mg SDV IVP ×2 (11:30→21:54)
[2023-04-16] MEDS: ondansetron 2 mg/ML SDV 2 mL 8 MG IVP ×2 (11:30→19:13)
[2023-04-16] MEDS: amlodipine 10 mg Tablet PO (13:22)
[2023-04-16] MEDS: escitalopram 10 mg Tablet PO (13:22)
[2023-04-16] MEDS: flu vacc pf 2023-24 (6 mos+) 60 MCG IM (13:25)
--- NOTE | 2023-04-16 17:23 | P.PN_ITS ---
Subjective 2 Subjective: Patient was seen this morning, she continues to have nausea, is not passing gas from below, continues to have epigastric abdominal discomfort, Vitals/I&O/Wt Last Vital Signs Temp 97.8 F 04/16/23 10:40 Pulse 75 04/16/23 16:00 Resp 16 04/16/23 16:00 BP 139/73 04/16/23 16:00 Pulse Ox 91 04/16/23 16:00 O2 Del Method Room Air 04/16/23 16:00 04/16/23 04/16/23 04/16/23 06:59 14:59 22:59 Intake Total 105 / 0 1061.25 / 1061.25 Balance 1050 / 0 1061.25 / 1061.25 Weight last 48 hrs Weight 68.577 kg Weight 63.503 kg Weight 63.503 kg Physical Exam 2 Const: COMMON NORMALS: no acute distress and patient oriented x3 Resp: COMMON NORMALS: normal respiratory effort, No retractions, No use of accessory muscles and clear to auscultation bilaterally AUSCULTATION: clear to auscultation bilaterally Cardio: COMMON NORMALS: regular rate, regular rhythm, S1 normal heart sound present and S2 normal heart sound present RATE: regular rate RHYTHM: r egular rhythm HEART SOUNDS: S1 normal heart sound present and S2 normal heart sound present GI: COMMON NORMALS: Normal to inspection, nondistended, normoactive bowel sounds present and non-tender Extremity: COMMON NORMALS: no pedal edema Neuro: COMMON NORMALS: patient oriented x3 Psych: COMMON NORMALS: mental status grossly normal Data 04/16/23 04:55 04/16/23 04:55 Micro: Microbiology 04/15/23 20:47 Blood Culture - Preliminary Blood SPECIMEN COLLECTED 04/15/23 20:40 Blood Culture - Preliminary Blood SPECIMEN COLLECTED A&P Assessment and plan (1) Cirrhosis of liver: (2) HTN (hypertension): (3) Acute pancreatitis: Plan Pancreatitis, ? With history of gallstone pancreatitis recent hospital discharge and outpatient follow-up for consideration of cholecystectomy, ? History of liver cirrhosis secondary to hep C status posttreatment, history of TIPS procedure, ? Plan -N.p.o. -IV fluids, ? IV Zosyn, ? Serial abdominal exams, ? Ultrasound abdomen ? Monitor LFTs, monitor lipase, ? IV Dilaudid for pain control, ? Zofran for nausea, ? Full code, ? Lovenox for DVT prophylaxis Patient requires hospitalization for pancreatitis, inpatient, greater than 2 minutes, Attestations 2 Medical Necessity Statement*: Patient requires hospitalization for acute otitis, inpatient, treatment 2 midnights, intractable pain, intractable nausea, intractable vomiting Diagnoses Cirrhosis of liver K74.60 HTN (hypertension) I10 Acute pancreatitis K85.90
[2023-04-17] VITALS (14 sets, daily range): BP systolic 113–151; BP diastolic 75–91; PULSE 67–84; RESP 14–18; TEMP 36.4–37.1; O2SAT 93–97
[2023-04-17] MEDS: HYDROmorphone 1 mg/mL INJ 1 mL IVP ×9 (00:15→22:57)
[2023-04-17] MEDS: ondansetron 2 mg/ML SDV 2 mL 8 MG IVP ×3 (01:18→18:24)
[2023-04-17] MEDS: sodium chloride 0.9% 1,000 ML 125 ML IV ×3 (05:07→22:02)
[2023-04-17 05:10] LABS: Basophils % 0.8 %; Eosinophils # 0.2 10^3/uL (0.0-0.8); Eosinophils % 4.7 %; Hematocrit 35.4 % (36-47); Lymphocytes # 1.1 10^3/uL (0.8-4.8); Mean Corpuscular HGB Conc 32.8 g/dL (30-55); Mean Corpuscular Hemoglobin 27.4 pg (27-33); Mean Corpuscular Volume 83.5 fl (85-98); Mean Platelet Volume 11.5 fL (7.4-10.4); Monocytes # 0.3 10^3/uL (0.2-0.9); Monocytes % 8.1 %; Neutrophils % 57.4 %; Nucleated Red Blood Cells % 0 %; Platelet Count 131 10^3/cmm (157-399); Red Blood Count 4.24 10^6/uL (3.85-5.65); Red Cell Distribution Width 12.9 % (12.1-15.1); White Blood Count 3.83 10^3/uL (3.29-11.43)
[2023-04-17 05:20] LABS: INR 1.21 (0.8-1.2)
[2023-04-17 05:30] LABS: Alanine Aminotransferase 12 U/L (0-33); Albumin Level 3.8 g/dL (3.5-5.2); Alkaline Phosphatase 55 U/L (35-105); Anion Gap 11.8 (5-19); Aspartate Amino Transferase 21 U/L (0-32); Blood Urea Nitrogen 5 mg/dL (8-23); Calcium 8.7 mg/dL (8.5-10.5); Carbon Dioxide 26 mmol/L (22-29); Chloride 107 mmol/L (98-107); Globulin 2.6 g/dL (1.3-4.6); Glomerular Filtration Rate 124.2 mL/min (90-130); Glucose 84 mg/dL (65-115); Magnesium 1.9 mg/dL (1.7-2.3); Osmolality Calculated 288 mOsm/kg (285-295); Phosphorus 3.4 mg/dL (2.5-4.5); Potassium 3.8 mmol/L (3.5-5.1); Sodium 141 mmol/L (136-145); Total Bilirubin 0.8 mg/dL (0.15-1.2); Total Protein 6.4 g/dL (6.6-8.7)
[2023-04-17] MEDS: piperacillin-tazobactam 3.375 GM in sodium chloride 0.9% (plus) 50 ML IV ×3 (06:19→23:01)
--- NOTE | 2023-04-17 08:09 | PC.SOCIAL ---
IMM Update pg 2 of IMM not updated w/ patient @ this time as she is currently in observation status.
--- NOTE | 2023-04-17 09:10 | PC.CHAP ---
Pastoral Care Encounter/Spiritual Assessment Type of Contact [] Declined pastry baker visit [] Patient/Family/Request visit [] Outpatient visit [] Follow-up visit [] Physician referral [] Code/Alert [x] Routine visit [] Staff referral [] Actively dying [] Patient sleeping [] Family support [] [] Out of room [] Palliative care [] [] Receiving care in room [] Pre-surgical visit [] Trauma [] Long length of stay [] ICU visit [] Other: Relational/Emotional Strength [x] Patient feels connected with others/family/visitors/staff [] Distress [] Loneliness/isolation [] Abandonment Spirituality of Patient [x] Person of [place] [] Attends Spiritism of their [place] [x] Believes in Prayer [] Reads Bible or Orthodox materials [] There are Spiritual issues to be addressed 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 [x] Prayer [x] Active listening [] Non-anxious presence [x] Spiritual/emotional support [] Crisis/trauma care [] Spiritual counseling [] Bereavement support [] Provided bereavement packet [] Provided Bible/devotional materials [] Provided toy/stuffed animal, coloring book to patient or family member [] Provided Communion [] Anointing/Counselor [] Salvation [x] Completed spiritual assessment [] Other: Impact on Illness or Injury [] Angry [] Fearful [] Anxious [] Often cries [] Exhaustion [] Unable to work [] Unable to attend shinto [] Unable to walk/stand [] Unable to read [] Unable to drive [] Unable to eat/drink [] Unable to sleep [] Unable to be with family [] Patient intubated [] Other: Summary Time spent with patient 10 min
[2023-04-17] MEDS: pantoprazole 40 mg SDV IVP ×2 (09:33→22:02)
[2023-04-17] MEDS: scopolamine 1.5 Patch 1 PATCH TRANSDERMA (13:14)
[2023-04-17] MEDS: amlodipine 10 mg Tablet PO (13:50)
[2023-04-17] MEDS: escitalopram 10 mg Tablet PO (13:50)
--- NOTE | 2023-04-17 17:38 | P.PN_ITS ---
Subjective 2 Subjective: Patient was seen this morning, she continues to have abdominal pain feeling nauseous, no fevers, no chills Vitals/I&O/Wt Last Vital Signs Temp 97.6 F 04/17/23 15:38 Pulse 84 04/17/23 15:38 Resp 14 04/17/23 16:06 BP 151/91 04/17/23 15:38 Pulse Ox 95 04/17/23 15:38 O2 Del Method Room Air 04/17/23 15:38 04/17/23 04/17/23 04/17/23 06:59 14:59 22:59 Intake Total 1050 / 3100.833 1050 / 1050 Balance 1050 / 3100.833 1050 / 1050 Weight last 48 hrs Weight 72.121 kg Weight 68.577 kg Weight 63.503 kg Physical Exam 2 Const: COMMON NORMALS: no acute distress and patient oriented x3 Resp: COMMON NORMALS: normal respiratory effort, No retractions, No use of accessory muscles and clear to auscultation bilaterally AUSCULTATION: clear to auscultation bilaterally Cardio: COMMON NORMALS: regular rate, regular rhythm, S1 normal heart sound present and S2 normal heart sound present RATE: regular rate RHYTHM: r egular rhythm HEART SOUNDS: S1 normal heart sound present and S2 normal heart sound present GI: OTHER: Abdomen soft, distended, diffuse tenderness, no guarding, no rebound, rigidity Extremity: COMMON NORMALS: no pedal edema Neuro: COMMON NORMALS: patient oriented x3 Psych: COMMON NORMALS: mental status grossly normal Data 04/17/23 04:45 04/17/23 04:45 Micro: Microbiology 04/15/23 20:40 Blood Culture - Preliminary Blood NEGATIVE TO DATE 04/15/23 20:47 Blood Culture - Preliminary Blood NEGATIVE TO DATE A&P Assessment and plan (1) Cirrhosis of liver: (2) HTN (hypertension): (3) Acute pancreatitis: Plan Pancreatitis, ? With history of gallstone pancreatitis recent hospital discharge and outpatient follow-up for consideration of cholecystectomy, ? History of liver cirrhosis secondary to hep C status posttreatment, history of TIPS procedure, ? Plan -N.p.o. -IV fluids, ? IV Zosyn, ? Serial abdominal exams, ? Ultrasound abdomen ? Monitor LFTs, monitor lipase, ? IV Dilaudid for pain control, increased dose of Dilaudid, add on scopolamine patch ? Zofran for nausea, ? Full code, ? Lovenox for DVT prophylaxis Patient requires hospitalization for pancreatitis, inpatient, greater than 2 minutes, Attestations 2 Medical Necessity Statement*: Patient requires hospitalization for inpatient for pancreatitis, persistent abdominal pain Diagnoses Cirrhosis of liver K74.60 HTN (hypertension) I10 Acute pancreatitis K85.90
[2023-04-17] MEDS: morphine 4 mg/mL SDV 1 mL 2 MG IVP (18:24)
[2023-04-17] MEDS: metoclopramide 5 mg/mL SDV 2 mL IVP (22:57)
[2023-04-18] VITALS (15 sets, daily range): BP systolic 100–133; BP diastolic 63–78; PULSE 62–68; RESP 14–17; TEMP 36.5–37.2; O2SAT 95–99; BMI 26.9
[2023-04-18] MEDS: HYDROmorphone 1 mg/mL INJ 1 mL IVP ×6 (02:15→21:34)
[2023-04-18] MEDS: ondansetron 2 mg/ML SDV 2 mL 8 MG IVP ×3 (02:52→19:05)
[2023-04-18 04:57] LABS: Basophils % 0.7 %; Eosinophils # 0.2 10^3/uL (0.0-0.8); Eosinophils % 5.1 %; Hematocrit 34.2 % (36-47); Lymphocytes % 33.2 %; Mean Corpuscular HGB Conc 33.6 g/dL (30-55); Mean Corpuscular Hemoglobin 27.8 pg (27-33); Mean Corpuscular Volume 82.6 fl (85-98); Mean Platelet Volume 11.7 fL (7.4-10.4); Monocytes # 0.3 10^3/uL (0.2-0.9); Monocytes % 9.2 %; Neutrophils # 1.53 10^3/uL (1.8-7.7); Neutrophils % 51.8 %; Nucleated Red Blood Cells % 0 %; Platelet Count 109 10^3/cmm (157-399); Red Blood Count 4.14 10^6/uL (3.85-5.65); Red Cell Distribution Width 12.8 % (12.1-15.1); White Blood Count 2.95 10^3/uL (3.29-11.43)
[2023-04-18 05:03] LABS: INR 1.24 (0.8-1.2)
[2023-04-18 05:10] LABS: Alanine Aminotransferase 13 U/L (0-33); Albumin Level 3.8 g/dL (3.5-5.2); Alkaline Phosphatase 47 U/L (35-105); Anion Gap 14.4 (5-19); Aspartate Amino Transferase 24 U/L (0-32); Blood Urea Nitrogen 3 mg/dL (8-23); Calcium 8.6 mg/dL (8.5-10.5); Carbon Dioxide 23 mmol/L (22-29); Chloride 109 mmol/L (98-107); Globulin 2.6 g/dL (1.3-4.6); Glomerular Filtration Rate 100.6 mL/min (90-130); Glucose 84 mg/dL (65-115); Magnesium 1.9 mg/dL (1.7-2.3); Osmolality Calculated 292 mOsm/kg (285-295); Phosphorus 3.4 mg/dL (2.5-4.5); Potassium 3.4 mmol/L (3.5-5.1); Sodium 143 mmol/L (136-145); Total Protein 6.4 g/dL (6.6-8.7)
[2023-04-18] MEDS: sodium chloride 0.9% 1,000 ML 125 ML IV ×2 (05:32→15:38)
[2023-04-18] MEDS: piperacillin-tazobactam 3.375 GM in sodium chloride 0.9% (plus) 50 ML IV ×3 (05:32→21:36)
[2023-04-18] MEDS: metoclopramide 5 mg/mL SDV 2 mL IVP ×2 (05:37→21:34)
[2023-04-18] MEDS: lidocaine 1% 5 ML in potassium chloride premix 100 ML 26.25 ML IV (11:26)
[2023-04-18] MEDS: pantoprazole 40 mg SDV IVP ×2 (11:26→21:34)
--- NOTE | 2023-04-18 13:56 | P.PN_ITS ---
Subjective 2 Subjective: Patient was seen this morning, her abdominal pain has subsided somewhat, she is passing gas, no nausea, no vomiting, pain persists Vitals/I&O/Wt Last Vital Signs Temp 97.8 F 04/18/23 12:00 Pulse 68 04/18/23 12:00 Resp 15 04/18/23 12:00 BP 112/70 04/18/23 12:00 Pulse Ox 95 04/18/23 12:00 O2 Del Method Room Air 04/18/23 12:00 04/17/23 04/18/23 04/18/23 22:59 06:59 14:59 Intake Total 1050 / 2100 987.5 / 3087.5 50 / 50 Balance 1050 / 2100 987.5 / 3087.5 50 / 50 Weight last 48 hrs Weight 71.214 kg Weight 72.121 kg Physical Exam 2 Const: COMMON NORMALS: no acute distress and patient oriented x3 Resp: COMMON NORMALS: normal respiratory effort, No retractions, No use of accessory muscles and clear to auscultation bilaterally AUSCULTATION: clear to auscultation bilaterally Cardio: COMMON NORMALS: regular rate, regular rhythm, S1 normal heart sound present and S2 normal heart sound present RATE: regular rate RHYTHM: r egular rhythm HEART SOUNDS: S1 normal heart sound present and S2 normal heart sound present GI: COMMON NORMALS: Normal to inspection, nondistended, normoactive bowel sounds present and non-tender Extremity: COMMON NORMALS: no pedal edema Neuro: COMMON NORMALS: patient oriented x3 Psych: COMMON NORMALS: mental status grossly normal Data 04/18/23 04:35 04/18/23 04:35 A&P Assessment and plan (1) Cirrhosis of liver: (2) HTN (hypertension): (3) Acute pancreatitis: Plan Pancreatitis, ? With history of gallstone pancreatitis recent hospital discharge and outpatient follow-up for consideration of cholecystectomy, ? History of liver cirrhosis secondary to hep C status posttreatment, history of TIPS procedure, ? Plan -N.p.o. -IV fluids, ? IV Zosyn, ? Serial abdominal exams, ? Ultrasound abdomen ? Monitor LFTs, monitor lipase, ? IV Dilaudid for pain control, increased dose of Dilaudid, add on scopolamine patch, add 2 mg of morphine IV push every 8 hours for breakthrough pain ? Zofran for nausea, ? Full code, ? Lovenox for DVT prophylaxis Patient requires hospitalization for pancreatitis, inpatient, greater than 2 minutes, Attestations 2 Medical Necessity Statement*: Patient requires hospitalization for pancreatitis Diagnoses Cirrhosis of liver K74.60 HTN (hypertension) I10 Acute pancreatitis K85.90
[2023-04-18] MEDS: escitalopram 10 mg Tablet PO (15:40)
[2023-04-18] MEDS: morphine 4 mg/mL SDV 1 mL 2 MG IVP (15:40)
[2023-04-18] MEDS: amlodipine 10 mg Tablet PO (15:41)
[2023-04-19] VITALS (17 sets, daily range): BP systolic 128–152; BP diastolic 80–85; PULSE 61–83; RESP 15–18; TEMP 36.4–36.7; O2SAT 93–96; BMI 26.6
[2023-04-19] MEDS: HYDROmorphone 1 mg/mL INJ 1 mL IVP ×6 (00:02→20:11)
[2023-04-19] MEDS: morphine 4 mg/mL SDV 1 mL 2 MG IVP ×2 (00:46→23:22)
[2023-04-19] MEDS: ondansetron 2 mg/ML SDV 2 mL 8 MG IVP ×3 (01:21→20:17)
[2023-04-19 02:52] LABS: Basophils % 0.4 %; Eosinophils # 0.1 10^3/uL (0.0-0.8); Eosinophils % 4.9 %; Hematocrit 34.8 % (36-47); Lymphocytes % 34.9 %; Mean Corpuscular HGB Conc 32.8 g/dL (30-55); Mean Corpuscular Hemoglobin 27.3 pg (27-33); Mean Corpuscular Volume 83.5 fl (85-98); Mean Platelet Volume 11.4 fL (7.4-10.4); Monocytes # 0.3 10^3/uL (0.2-0.9); Monocytes % 11.3 %; Neutrophils # 1.38 10^3/uL (1.8-7.7); Neutrophils % 48.5 %; Nucleated Red Blood Cells % 0 %; Platelet Count 113 10^3/cmm (157-399); Red Blood Count 4.17 10^6/uL (3.85-5.65); Red Cell Distribution Width 12.6 % (12.1-15.1); White Blood Count 2.84 10^3/uL (3.29-11.43)
[2023-04-19] MEDS: sodium chloride 0.9% 1,000 ML 125 ML IV ×3 (03:13→20:11)
[2023-04-19 03:22] LABS: Alanine Aminotransferase 15 U/L (0-33); Albumin Level 3.8 g/dL (3.5-5.2); Alkaline Phosphatase 48 U/L (35-105); Anion Gap 12.4 (5-19); Aspartate Amino Transferase 24 U/L (0-32); Blood Urea Nitrogen 3 mg/dL (8-23); Calcium 8.7 mg/dL (8.5-10.5); Carbon Dioxide 24 mmol/L (22-29); Chloride 108 mmol/L (98-107); Globulin 2.6 g/dL (1.3-4.6); Glomerular Filtration Rate 100.6 mL/min (90-130); Glucose 82 mg/dL (65-115); Osmolality Calculated 288 mOsm/kg (285-295); Potassium 3.4 mmol/L (3.5-5.1); Sodium 141 mmol/L (136-145); Total Bilirubin 0.9 mg/dL (0.15-1.2); Total Protein 6.4 g/dL (6.6-8.7)
[2023-04-19] MEDS: metoclopramide 5 mg/mL SDV 2 mL IVP ×2 (03:54→11:25)
[2023-04-19] MEDS: piperacillin-tazobactam 3.375 GM in sodium chloride 0.9% (plus) 50 ML IV ×3 (06:26→23:23)
[2023-04-19] MEDS: lidocaine 1% 5 ML in potassium chloride premix 100 ML 26.25 ML IV (10:44)
[2023-04-19] MEDS: pantoprazole 40 mg SDV IVP ×2 (13:06→23:22)
--- NOTE | 2023-04-19 14:36 | P.PN_ITS ---
Subjective 2 Subjective: Patient was seen this morning, denies any fevers, no chills, no cough, is tolerating ice chips, abdominal pain minimal, passing gas from below, discussed trying clear liquid she is agreeable, advised to slowly advance diet, avoid rich carbohydrate meals, avoid sugar, will monitor 4 hours Vitals/I&O/Wt Last Vital Signs Temp 97.7 F 04/19/23 03:01 Pulse 66 04/19/23 12:00 Resp 16 04/19/23 12:00 BP 152/84 04/19/23 12:00 Pulse Ox 94 04/19/23 11:29 O2 Del Method Room Air 04/19/23 11:29 04/18/23 04/19/23 04/19/23 22:59 06:59 14:59 Intake Total 346.667 / 1396.667 836.250 / 2232.917 1290 / 1290 Balance 346.667 / 1396.667 836.250 / 2232.917 1290 / 1290 Weight last 48 hrs Weight 70.335 kg Weight 71.214 kg Physical Exam 2 Const: COMMON NORMALS: no acute distress and patient oriented x3 Resp: COMMON NORMALS: normal respiratory effort, No retractions, No use of accessory muscles and clear to auscultation bilaterally AUSCULTATION: clear to auscultation bilaterally Cardio: COMMON NORMALS: regular rate, regular rhythm, S1 normal heart sound present and S2 normal heart sound present RATE: regular rate RHYTHM: r egular rhythm HEART SOUNDS: S1 normal heart sound present and S2 normal heart sound present GI: COMMON NORMALS: Normal to inspection, nondistended, normoactive bowel sounds present and non-tender Extremity: COMMON NORMALS: no pedal edema Neuro: COMMON NORMALS: patient oriented x3 Psych: COMMON NORMALS: mental status grossly normal Data 04/19/23 02:30 04/19/23 02:30 A&P Assessment and plan (1) Cirrhosis of liver: (2) HTN (hypertension): (3) Acute pancreatitis: Plan Pancreatitis, ? With history of gallstone pancreatitis recent hospital discharge and outpatient follow-up for consideration of cholecystectomy, ? History of liver cirrhosis secondary to hep C status posttreatment, history of TIPS procedure, ? Plan -clear liquis -IV fluids, ? IV Zosyn, ? Serial abdominal exams, ? Ultrasound abdomen US/US abdomen complete* [id number] IMPRESSION: 1. 5.6 mm suspected gallbladder polyp, negative for cholecystitis. 2. Spleen somewhat prominent at 14 cm. ? Monitor LFTs, monitor lipase, ? IV Dilaudid for pain control, increased dose of Dilaudid, add on scopolamine patch, add 2 mg of morphine IV push every 8 hours for breakthrough pain ? Zofran for nausea, ? Full code, ? Lovenox for DVT prophylaxis Patient requires hospitalization for pancreatitis, inpatient, greater than 2 minutes, Attestations 2 Medical Necessity Statement*: Patient requires hospitalization for her pancreatitis, Diagnoses Cirrhosis of liver K74.60 HTN (hypertension) I10 Acute pancreatitis K85.90
[2023-04-19] MEDS: amlodipine 10 mg Tablet PO (16:03)
[2023-04-19] MEDS: escitalopram 10 mg Tablet PO (16:03)
[2023-04-20] VITALS (10 sets, daily range): BP systolic 119–133; BP diastolic 69–87; PULSE 62–89; RESP 16–18; TEMP 36.4–36.7; O2SAT 96–98
[2023-04-20] MEDS: HYDROmorphone 1 mg/mL INJ 1 mL IVP ×8 (00:57→23:27)
[2023-04-20 03:46] LABS: Basophils % 0.6 %; Eosinophils # 0.2 10^3/uL (0.0-0.8); Eosinophils % 4.9 %; Hematocrit 36.8 % (36-47); Lymphocytes # 1.2 10^3/uL (0.8-4.8); Lymphocytes % 33.8 %; Mean Corpuscular HGB Conc 32.9 g/dL (30-55); Mean Corpuscular Hemoglobin 27.6 pg (27-33); Mean Platelet Volume 11.6 fL (7.4-10.4); Monocytes # 0.4 10^3/uL (0.2-0.9); Monocytes % 10.3 %; Neutrophils # 1.76 10^3/uL (1.8-7.7); Neutrophils % 50.4 %; Nucleated Red Blood Cells % 0 %; Platelet Count 124 10^3/cmm (157-399); Red Blood Count 4.38 10^6/uL (3.85-5.65); Red Cell Distribution Width 12.9 % (12.1-15.1); White Blood Count 3.49 10^3/uL (3.29-11.43)
[2023-04-20 04:00] LABS: Alanine Aminotransferase 18 U/L (0-33); Alkaline Phosphatase 51 U/L (35-105); Anion Gap 15.4 (5-19); Aspartate Amino Transferase 30 U/L (0-32); Blood Urea Nitrogen 2 mg/dL (8-23); Calcium 8.7 mg/dL (8.5-10.5); Carbon Dioxide 22 mmol/L (22-29); Chloride 107 mmol/L (98-107); Creatinine Clr Calc Pharmacy 91.1488; Globulin 2.7 g/dL (1.3-4.6); Glomerular Filtration Rate 100.6 mL/min (90-130); Glucose 104 mg/dL (65-115); Osmolality Calculated 288 mOsm/kg (285-295); Potassium 3.4 mmol/L (3.5-5.1); Sodium 141 mmol/L (136-145); Total Bilirubin 1.1 mg/dL (0.15-1.2); Total Protein 6.7 g/dL (6.6-8.7)
[2023-04-20] MEDS: sodium chloride 0.9% 1,000 ML 125 ML IV ×3 (05:33→22:44)
[2023-04-20] MEDS: piperacillin-tazobactam 3.375 GM in sodium chloride 0.9% (plus) 50 ML IV ×3 (05:34→21:30)
[2023-04-20] MEDS: ondansetron 2 mg/ML SDV 2 mL 8 MG IVP ×3 (05:42→21:22)
[2023-04-20] MEDS: pantoprazole 40 mg SDV IVP ×2 (10:00→21:30)
[2023-04-20] MEDS: metoclopramide 5 mg/mL SDV 2 mL IVP ×2 (10:11→18:19)
[2023-04-20] MEDS: morphine 4 mg/mL SDV 1 mL 2 MG IVP (12:02)
--- NOTE | 2023-04-20 13:59 | P.PN_ITS ---
Subjective 2 Subjective: Patient was seen this morning, she tells me that she is tolerating clear liquids she is passing gas she has had bowel movements that are more liquidy, continues to have abdominal pain, she feels she is not ready to go home yet, Vitals/I&O/Wt Last Vital Signs Temp 97.9 F 04/20/23 12:00 Pulse 66 04/20/23 12:00 Resp 17 04/20/23 12:00 BP 119/69 04/20/23 12:00 Pulse Ox 97 04/20/23 12:00 O2 Del Method Room Air 04/20/23 12:00 04/19/23 04/20/23 04/20/23 22:59 06:59 14:59 Intake Total 1410 / 2805 1050 / 3855 530 / 530 Balance 1410 / 2805 1050 / 3855 530 / 530 Weight last 48 hrs Weight 70.851 kg Weight 70.335 kg Physical Exam 2 Const: COMMON NORMALS: no acute distress and patient oriented x3 Resp: COMMON NORMALS: normal respiratory effort, No retractions, No use of accessory muscles and clear to auscultation bilaterally AUSCULTATION: clear to auscultation bilaterally Cardio: COMMON NORMALS: regular rate, regular rhythm, S1 normal heart sound present and S2 normal heart sound present RATE: regular rate RHYTHM: r egular rhythm HEART SOUNDS: S1 normal heart sound present and S2 normal heart sound present GI: COMMON NORMALS: Normal to inspection, nondistended, normoactive bowel sounds present and non-tender Extremity: COMMON NORMALS: no pedal edema Neuro: COMMON NORMALS: patient oriented x3 Psych: COMMON NORMALS: mental status grossly normal Data 04/20/23 02:33 04/20/23 02:33 A&P Assessment and plan (1) Cirrhosis of liver: (2) HTN (hypertension): (3) Acute pancreatitis: Plan Pancreatitis, ? With history of gallstone pancreatitis recent hospital discharge and outpatient follow-up for consideration of cholecystectomy, ? History of liver cirrhosis secondary to hep C status posttreatment, history of TIPS procedure, ? Plan -clear liquis -IV fluids, ? IV Zosyn, ? Serial abdominal exams, ? Ultrasound abdomen US/US abdomen complete* [id number] IMPRESSION: 1. 5.6 mm suspected gallbladder polyp, negative for cholecystitis. 2. Spleen somewhat prominent at 14 cm. ? Monitor LFTs, monitor lipase, ? IV Dilaudid for pain control, increased dose of Dilaudid, add on scopolamine patch, add 2 mg of morphine IV push every 8 hours for breakthrough pain ? Zofran for nausea, ? Full code, ? Lovenox for DVT prophylaxis Patient requires hospitalization for pancreatitis, inpatient, greater than 2 minutes, Attestations 2 Medical Necessity Statement*: Patient requires hospitalization for pancreatitis Diagnoses Cirrhosis of liver K74.60 HTN (hypertension) I10 Acute pancreatitis K85.90
[2023-04-20] MEDS: escitalopram 10 mg Tablet PO (14:52)
[2023-04-20] MEDS: amlodipine 10 mg Tablet PO (14:52)
[2023-04-21] VITALS (14 sets, daily range): BP systolic 114–144; BP diastolic 72–89; PULSE 59–69; RESP 16–18; TEMP 36.4–36.8; O2SAT 95–99
[2023-04-21] MEDS: metoclopramide 5 mg/mL SDV 2 mL IVP ×3 (00:46→17:10)
[2023-04-21] MEDS: HYDROmorphone 1 mg/mL INJ 1 mL IVP ×8 (01:49→23:10)
[2023-04-21 05:15] LABS: Basophils % 0.6 %; Eosinophils # 0.2 10^3/uL (0.0-0.8); Lymphocytes # 1.3 10^3/uL (0.8-4.8); Lymphocytes % 38.5 %; Mean Corpuscular HGB Conc 32.6 g/dL (30-55); Mean Corpuscular Hemoglobin 27.2 pg (27-33); Mean Corpuscular Volume 83.5 fl (85-98); Mean Platelet Volume 11.3 fL (7.4-10.4); Monocytes # 0.4 10^3/uL (0.2-0.9); Monocytes % 10.9 %; Neutrophils # 1.42 10^3/uL (1.8-7.7); Nucleated Red Blood Cells % 0 %; Platelet Count 131 10^3/cmm (157-399); Red Blood Count 4.19 10^6/uL (3.85-5.65); Red Cell Distribution Width 12.7 % (12.1-15.1)
[2023-04-21 05:38] LABS: Alanine Aminotransferase 18 U/L (0-33); Albumin Level 3.8 g/dL (3.5-5.2); Alkaline Phosphatase 50 U/L (35-105); Anion Gap 13.5 (5-19); Aspartate Amino Transferase 33 U/L (0-32); Blood Urea Nitrogen 1 mg/dL (8-23); Calcium 8.5 mg/dL (8.5-10.5); Carbon Dioxide 24 mmol/L (22-29); Chloride 109 mmol/L (98-107); Globulin 2.7 g/dL (1.3-4.6); Glomerular Filtration Rate 100.6 mL/min (90-130); Glucose 88 mg/dL (65-115); Osmolality Calculated 291 mOsm/kg (285-295); Potassium 3.5 mmol/L (3.5-5.1); Sodium 143 mmol/L (136-145); Total Bilirubin 0.8 mg/dL (0.15-1.2); Total Protein 6.5 g/dL (6.6-8.7)
[2023-04-21] MEDS: piperacillin-tazobactam 3.375 GM in sodium chloride 0.9% (plus) 50 ML IV ×3 (06:03→23:11)
[2023-04-21] MEDS: ondansetron 2 mg/ML SDV 2 mL 8 MG IVP ×3 (06:30→20:26)
[2023-04-21] MEDS: sodium chloride 0.9% 1,000 ML 125 ML IV ×2 (06:47→13:40)
[2023-04-21] MEDS: pantoprazole 40 mg SDV IVP ×2 (10:18→23:11)
[2023-04-21] MEDS: escitalopram 10 mg Tablet PO (13:41)
[2023-04-21] MEDS: amlodipine 10 mg Tablet PO (13:41)
--- NOTE | 2023-04-21 16:32 | P.PN_ITS ---
Vitals/I&O/Wt Last Vital Signs Temp 97.8 F 04/21/23 15:39 Pulse 65 04/21/23 15:39 Resp 17 04/21/23 15:39 BP 142/81 04/21/23 15:39 Pulse Ox 96 04/21/23 15:39 O2 Del Method Room Air 04/21/23 15:39 04/21/23 04/21/23 04/21/23 06:59 14:59 22:59 Intake Total 1050 / 3979.583 1510.417 / 1510.417 Balance 1050 / 3979.583 1510.417 / 1510.417 Weight last 48 hrs Weight 71.532 kg Weight 70.851 kg Physical Exam 2 Const: COMMON NORMALS: no acute distress and patient oriented x3 Resp: COMMON NORMALS: normal respiratory effort, No retractions, No use of accessory muscles and clear to auscultation bilaterally AUSCULTATION: clear to auscultation bilaterally Cardio: COMMON NORMALS: regular rate, regular rhythm, S1 normal heart sound present and S2 normal heart sound present RATE: regular rate RHYTHM: r egular rhythm HEART SOUNDS: S1 normal heart sound present and S2 normal heart sound present Extremity: COMMON NORMALS: no pedal edema Neuro: COMMON NORMALS: patient oriented x3 Psych: COMMON NORMALS: mental status grossly normal Data 04/21/23 04:32 04/21/23 04:32 Micro: Microbiology 04/15/23 20:40 Blood Culture - Final Blood NO GROWTH AFTER 5 DAYS 04/15/23 20:47 Blood Culture - Final Blood NO GROWTH AFTER 5 DAYS A&P Assessment and plan (1) Cirrhosis of liver: (2) HTN (hypertension): (3) Acute pancreatitis: Plan Pancreatitis, ? With history of gallstone pancreatitis recent hospital discharge and outpatient follow-up for consideration of cholecystectomy, ? History of liver cirrhosis secondary to hep C status posttreatment, history of TIPS procedure, ? Plan -clear liquids -IV fluids, ? IV Zosyn, ? Serial abdominal exams, ? CT scan abdomen pelvis within normal limits ? Ultrasound abdomen US/US abdomen complete* [id number] IMPRESSION: 1. 5.6 mm suspected gallbladder polyp, negative for cholecystitis. 2. Spleen somewhat prominent at 14 cm. ? Monitor LFTs, monitor lipase, ? IV Dilaudid for pain control, increased dose of Dilaudid, add on scopolamine patch, add 2 mg of morphine IV push every 8 hours for breakthrough pain ? Zofran for nausea, ? Full code, ? Lovenox for DVT prophylaxis Patient requires hospitalization for pancreatitis, history of gallstone pancreatitis, continued abdominal pain, Attestations 2 Medical Necessity Statement*: Patient requires hospitalization for pancreatitis, history of gallstone pancreatitis, continue abdominal pain, decide pain control, IV antibiotics, will consult general surgery today Diagnoses Cirrhosis of liver K74.60 HTN (hypertension) I10 Acute pancreatitis K85.90
[2023-04-22] VITALS (16 sets, daily range): BP systolic 113–152; BP diastolic 65–97; PULSE 61–75; RESP 15–18; TEMP 36.4–36.9; O2SAT 94–98
[2023-04-22] MEDS: metoclopramide 5 mg/mL SDV 2 mL IVP ×3 (01:04→18:34)
[2023-04-22] MEDS: HYDROmorphone 1 mg/mL INJ 1 mL IVP ×8 (01:04→21:45)
[2023-04-22] MEDS: sodium chloride 0.9% 1,000 ML 75 ML IV ×2 (03:05→15:44)
[2023-04-22] MEDS: piperacillin-tazobactam 3.375 GM in sodium chloride 0.9% (plus) 50 ML IV ×3 (05:33→23:02)
[2023-04-22 06:42] LABS: Basophils # 0.1 10^3/uL (0.0-0.1); Basophils % 0.8 %; Eosinophils # 0.3 10^3/uL (0.0-0.8); Eosinophils % 5.5 %; Hematocrit 39.5 % (36-47); Lymphocytes # 2.6 10^3/uL (0.8-4.8); Lymphocytes % 44.2 %; Mean Corpuscular HGB Conc 32.9 g/dL (30-55); Mean Corpuscular Hemoglobin 27.1 pg (27-33); Mean Corpuscular Volume 82.5 fl (85-98); Mean Platelet Volume 11.2 fL (7.4-10.4); Monocytes # 0.5 10^3/uL (0.2-0.9); Monocytes % 7.9 %; Neutrophils # 2.47 10^3/uL (1.8-7.7); Neutrophils % 41.4 %; Nucleated Red Blood Cells % 0 %; Platelet Count 177 10^3/cmm (157-399); Red Blood Count 4.79 10^6/uL (3.85-5.65); Red Cell Distribution Width 12.8 % (12.1-15.1); White Blood Count 5.97 10^3/uL (3.29-11.43)
[2023-04-22 07:17] LABS: NT Pro B Type Natriuretic Pept 452 pg/mL (0-125); Procalcitonin 0.04 ng/mL (0-0.5)
[2023-04-22 07:31] LABS: Alanine Aminotransferase 17 U/L (0-33); Albumin Level 4.3 g/dL (3.5-5.2); Alkaline Phosphatase 52 U/L (35-105); Anion Gap 17.3 (5-19); Aspartate Amino Transferase 27 U/L (0-32); Calcium 9.2 mg/dL (8.5-10.5); Carbon Dioxide 22 mmol/L (22-29); Chloride 104 mmol/L (98-107); Globulin 3.1 g/dL (1.3-4.6); Glomerular Filtration Rate 84.2 mL/min (90-130); Glucose 65 mg/dL (65-115); Magnesium 1.9 mg/dL (1.7-2.3); Phosphorus 2.7 mg/dL (2.5-4.5); Potassium 3.3 mmol/L (3.5-5.1); Sodium 140 mmol/L (136-145); Total Bilirubin 1.1 mg/dL (0.15-1.2); Total Protein 7.4 g/dL (6.6-8.7)
[2023-04-22 07:33] LABS: Blood Urea Nitrogen 1 mg/dL (8-23); Osmolality Calculated 284 mOsm/kg (285-295)
[2023-04-22] MEDS: ondansetron 2 mg/ML SDV 2 mL 8 MG IVP ×2 (08:23→15:44)
[2023-04-22] MEDS: pantoprazole 40 mg SDV IVP ×2 (08:28→23:02)
--- NOTE | 2023-04-22 13:56 | P.PN_ITS ---
Subjective 2 Subjective: Patient was seen this morning, she denies any fevers, no chills, continues to have mild nausea, no vomiting, is passing gas, is having bowel movements, she is reporting diarrhea, does report persistent abdominal pain and bloating Vitals/I&O/Wt Last Vital Signs Temp 97.6 F 04/22/23 11:35 Pulse 71 04/22/23 11:35 Resp 16 04/22/23 12:34 BP 142/97 04/22/23 11:35 Pulse Ox 97 04/22/23 11:35 O2 Del Method Room Air 04/22/23 11:35 04/21/23 04/22/23 04/22/23 22:59 06:59 14:59 Intake Total 727.5 / 2237.917 612.5 / 2850.417 480 / 480 Balance 727.5 / 2237.917 612.5 / 2850.417 480 / 480 Weight last 48 hrs Weight 72.603 kg Weight 71.532 kg Physical Exam 2 Const: COMMON NORMALS: no acute distress and patient oriented x3 Resp: COMMON NORMALS: normal respiratory effort, No retractions, No use of accessory muscles and clear to auscultation bilaterally AUSCULTATION: clear to auscultation bilaterally Cardio: COMMON NORMALS: regular rate, regular rhythm, S1 normal heart sound present and S2 normal heart sound present RATE: regular rate RHYTHM: r egular rhythm HEART SOUNDS: S1 normal heart sound present and S2 normal heart sound present GI: OTHER: Good bowel sounds in all 4 quadrants, slight bloating, does have epigastric right upper quadrant tenderness to palpation, no guarding, no rebound, no rigidity Extremity: COMMON NORMALS: no pedal edema Neuro: COMMON NORMALS: patient oriented x3 Psych: COMMON NORMALS: mental status grossly normal Data 04/22/23 05:57 04/22/23 05:57 A&P Assessment and plan (1) Cirrhosis of liver: (2) HTN (hypertension): (3) Acute pancreatitis: Plan Pancreatitis, ? With history of gallstone pancreatitis recent hospital discharge and outpatient follow-up for consideration of cholecystectomy, ? History of liver cirrhosis secondary to hep C status posttreatment, history of TIPS procedure, ? Plan -clear liquids -IV fluids, ? IV Zosyn, ? Serial abdominal exams, ? CT scan abdomen pelvis within normal limits ? Ultrasound abdomen US/US abdomen complete* [id number] IMPRESSION: 1. 5.6 mm suspected gallbladder polyp, negative for cholecystitis. 2. Spleen somewhat prominent at 14 cm. ? Monitor LFTs, monitor lipase, ? IV Dilaudid for pain control, increased dose of Dilaudid, add on scopolamine patch, add 2 mg of morphine IV push every 8 hours for breakthrough pain ? Zofran for nausea, ? Full code, ? Lovenox for DVT prophylaxis Spoke to general surgery, will have discussion with patient about consideration of cholecystectomy versus medical management Attestations 2 Medical Necessity Statement*: Patient requires hospitalization for pancreatitis, concerns for gallstone pancreatitis, persistent abdominal pain, intractable pain, pain control Diagnoses Cirrhosis of liver K74.60 HTN (hypertension) I10 Acute pancreatitis K85.90
[2023-04-22] MEDS: escitalopram 10 mg Tablet PO (14:04)
[2023-04-22] MEDS: amlodipine 10 mg Tablet PO (14:05)
--- NOTE | 2023-04-22 16:25 | P.CONIM_ITS ---
Providers/Reason For Consult 2 Consulting Physician/Specialty*: Dr. Mehdi Brooks, DO/General surgery Reason for Consult*: Abdominal pain Attending Physician: Alexys Belcher MD Primary Care Provider: Conrad Amaya History of Present Illness History of Present Illness Stella Covarrubias is a 63 year old female, with a history of gallstone pancreatitis, who is currently in the hospital for ongoing abdominal pain. She has known cirrhosis reportedly secondary to hep C and is status post TIPS procedure. She had gallstone pancreatitis during a previous hospital stay which was managed conservatively. She is scheduled for laparoscopic cholecystectomy next month. However she has ongoing epigastric pain that radiates to her back along with nausea vomiting and occasional diarrhea. Eating makes pain worse. Nothing makes pain better. She denies any hematemesis, hematochezia and/or melena. She no longer has any pancreatitis and would like to proceed with cholecystectomy. Medications/Allergies Home Medications Medication Instructions Recorded Confirmed Last Taken Type amlodipine 10 mg tablet 10 mg PO DAILY@14 03/05/23 04/16/23 03/23/23 History dicyclomine 10 mg capsule 10 mg PO TID PRN Cramps 03/05/23 04/16/23 03/05/23 10:00 History escitalopram oxalate 10 mg tablet 10 mg PO DAILY@14 mental health 03/05/23 04/16/23 03/23/23 History ondansetron HCl 4 mg tablet 4 mg PO Q8H PRN Nausea And Vomiting 03/05/23 04/16/23 03/05/23 History pantoprazole 40 mg tablet,delayed 40 mg PO DAILY@14 03/05/23 04/16/23 03/23/23 History release hydrocodone 7.5 mg-acetaminophen 1 tab PO Q8H PRN pain 7 days #20 04/02/23 04/16/23 Unknown Rx 325 mg tablet tabs Allergies Allergy/AdvReac Type Severity Reaction Status Date / Time prochlorperazine Allergy Intermediate ADR-Irritab Verified 04/15/23 15:56 [From Compazine] le compazine Allergy makes her Uncoded 04/15/23 15:56 want to run Current Medications Generic Name Dose Route Start Last Admin Trade Name Freq PRN Reason Stop Dose Admin Amlodipine Besylate 10 mg 04/16/23 14:00 04/22/23 14:05 Amlodipine 10 Mg Tablet PO 10 mg DAILY@14 LOC Administration Enoxaparin Sodium 40 mg 04/15/23 22:30 04/22/23 21:38 Enoxaparin 40 Mg/0.4 Ml Syringe SUBCUT Not Given Q24H LOC Escitalopram Oxalate 10 mg 04/16/23 14:00 04/22/23 14:04 Escitalopram 10 Mg Tablet PO 10 mg DAILY@14 LOC Administration Hydromorphone HCl 1 mg 04/16/23 07:33 04/23/23 02:54 Hydromorphone 1 Mg/Ml Inj 1 Ml IVP 1 mg Q2H PRN Administration abdominal pain Piperacillin Sod/Tazobactam 50 mls @ 12.5 mls/hr 04/15/23 22:30 04/23/23 06:17 Sod 3.375 gm/ Sodium Chloride IV 12.5 mls/hr Q8H LOC Administration Protocol As Directed Sodium Chloride 1,000 mls @ 75 mls/hr 04/15/23 21:42 04/23/23 04:38 Sodium Chloride 0.9% IV 75 mls/hr .[id number] LOC Administration Metoclopramide HCl 5 mg 04/15/23 21:42 04/22/23 18:34 Metoclopramide 5 Mg/Ml Sdv 2 Ml IVP 5 mg Q6H PRN Administration NAUSEA AND VOMITING Morphine Sulfate 2 mg 04/17/23 14:00 04/22/23 19:50 Morphine 4 Mg/Ml Sdv 1 Ml IVP 2 mg Q8H PRN Administration BREAKTHROUGH PAIN Ondansetron HCl 8 mg 04/16/23 07:32 04/22/23 15:44 Ondansetron 2 Mg/Ml Sdv 2 Ml IVP 8 mg Q6H PRN Administration NAUSEA AND VOMITING Pantoprazole Sodium 40 mg 04/15/23 22:30 04/22/23 23:02 Pantoprazole 40 Mg Sdv IVP 40 mg Q12H LOC Administration Trazodone HCl 50 mg 04/15/23 21:42 04/22/23 21:38 Trazodone 50 Mg Tablet PO Not Given BEDTIME LOC PFSH Acute 2 PFSH: Medical History Renal mass Basal cell carcinoma (BCC) Chronic right shoulder pain Chronic neck pain Constipation Diverticulosis of colon Generalized anxiety disorder Cirrhosis of liver History of past hepatitis C that was treated, 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 Cervical radiculopathy Herniation of left side of L4-L5 intervertebral disc HTN (hypertension) Depression Degenerative disk disease 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, 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 Surgical History History of hysterectomy S/P TIPS (transjugular intrahepatic portosystemic shunt) History of neck surgery Family History Mother Heart problem Brother Heart problem Denies family history of Pancreatitis Social History Smoking and tobacco/nicotine status: current every day tobacco/nicotine user cigarettes [ Other cigarette details: 4-5 cigarettes per day] Second hand smoke exposure: Yes Alcohol intake: never Substance/Drug Use: never Vitals/I&O/Wt Last Vital Signs Temp 98.0 F 04/23/23 08:00 Pulse 65 04/23/23 08:00 Resp 16 04/23/23 08:00 BP 125/77 04/23/23 08:00 Pulse Ox 98 04/23/23 08:00 O2 Del Method Room Air 04/23/23 08:00 04/22/23 04/23/23 04/23/23 22:59 06:59 14:59 Intake Total 1238.75 / 1768.75 1017.5 / 2786.25 Balance 1238.75 / 1768.75 1017.5 / 2786.25 Weight last 48 hrs Weight 155 lb 6 oz Weight 160 lb 1 oz Physical Exam 2 Narrative: General : Patient is well developed , no acute distress, oriented x3 Head : Normal cephalic, a-traumatic. Ears : Pinnae and external canal are normal. Hearing is normal. Eyes : PERRLA, Sclera and injection are normal. No conjunctival discharge. Nose : Mucous membranes are without erythema. Throat : buccal mucosa is normal, gums are without significant recession or hypertrophy. Lungs : Equal chest rise bilaterally, no use of accessory muscles, trachea is midline. Cor : Rate and rhythm are normal. Abdomen : Soft, ND, tender to palpation over epigastrium, no g/r/m Extremities : No edema, no cyanosis or clubbing, dorsalis pedis pulses are present bilaterally, non-tender to palpation of calves. Upper extremities are normal bilaterally. Back : non-tender to palpation, no CVA tenderness. Neuro : CN II - XII intact, Upper and lower extremities have equal and full strength Data 04/23/23 04:22 04/23/23 04:22 A&P Assessment and plan (1) Cholecystitis: (2) Cirrhosis of liver: Plan N.p.o. after midnight Tomorrow for laparoscopic cholecystectomy The risks and benefits of the procedure, including but not limited to, bleeding, infection, scar, numbness, pain, damage to surrounding structures, damage to common bile duct requiring additional surgery, conversion to an open procedure, were explained to the patient. He is understanding of the risks and wishes to proceed. She is high risk for cholecystectomy due to her advanced cirrhosis and history of TIPS procedure. Preoperatively. I explained these increased risk to her and she wishes to proceed. Coding Level of Care Code 20042 Diagnoses Cholecystitis K81.9 Cirrhosis of liver K74.60
[2023-04-22] MEDS: morphine 4 mg/mL SDV 1 mL 2 MG IVP (19:50)
[2023-04-23] VITALS (21 sets, daily range): BP systolic 106–150; BP diastolic 69–90; PULSE 57–92; RESP 15–18; TEMP 36.4–36.8; O2SAT 91–100
[2023-04-23] MEDS: HYDROmorphone 1 mg/mL INJ 1 mL IVP ×5 (00:28→21:55)
[2023-04-23] MEDS: ALPRAZolam 0.5 mg Tablet PO (04:05)
[2023-04-23] MEDS: sodium chloride 0.9% 1,000 ML 75 ML IV ×2 (04:38→23:21)
[2023-04-23 05:15] LABS: Basophils % 0.9 %; Eosinophils # 0.3 10^3/uL (0.0-0.8); Hematocrit 34.9 % (36-47); Lymphocytes # 1.3 10^3/uL (0.8-4.8); Lymphocytes % 40.4 %; Mean Corpuscular HGB Conc 33.2 g/dL (30-55); Mean Corpuscular Hemoglobin 27.6 pg (27-33); Mean Corpuscular Volume 83.1 fl (85-98); Mean Platelet Volume 10.9 fL (7.4-10.4); Monocytes # 0.3 10^3/uL (0.2-0.9); Monocytes % 8.3 %; Neutrophils # 1.38 10^3/uL (1.8-7.7); Neutrophils % 42.1 %; Nucleated Red Blood Cells % 0 %; Platelet Count 138 10^3/cmm (157-399); Red Cell Distribution Width 12.9 % (12.1-15.1); White Blood Count 3.27 10^3/uL (3.29-11.43)
[2023-04-23 05:37] LABS: Slide Review Slide Review Perform
[2023-04-23 05:38] LABS: Alanine Aminotransferase 14 U/L (0-33); Albumin Level 3.9 g/dL (3.5-5.2); Alkaline Phosphatase 47 U/L (35-105); Anion Gap 13.3 (5-19); Aspartate Amino Transferase 22 U/L (0-32); Calcium 8.9 mg/dL (8.5-10.5); Carbon Dioxide 25 mmol/L (22-29); Chloride 106 mmol/L (98-107); Globulin 2.6 g/dL (1.3-4.6); Glomerular Filtration Rate 100.6 mL/min (90-130); Glucose 98 mg/dL (65-115); Magnesium 1.9 mg/dL (1.7-2.3); Phosphorus 2.7 mg/dL (2.5-4.5); Potassium 3.3 mmol/L (3.5-5.1); Sodium 141 mmol/L (136-145); Total Bilirubin 0.8 mg/dL (0.15-1.2); Total Protein 6.5 g/dL (6.6-8.7)
[2023-04-23 05:39] LABS: Blood Urea Nitrogen 1 mg/dL (8-23); Osmolality Calculated 288 mOsm/kg (285-295)
[2023-04-23 05:44] LABS: NT Pro B Type Natriuretic Pept 336 pg/mL (0-125); Procalcitonin 0.04 ng/mL (0-0.5)
[2023-04-23] MEDS: piperacillin-tazobactam 3.375 GM in sodium chloride 0.9% (plus) 50 ML IV ×3 (06:17→21:56)
--- NOTE | 2023-04-23 08:29 | PM.PN ---
Vitals/I&O/Wt Last Vital Signs Temp 98.0 F 04/23/23 08:00 Pulse 65 04/23/23 08:00 Resp 16 04/23/23 08:00 BP 125/77 04/23/23 08:00 Pulse Ox 98 04/23/23 08:00 O2 Del Method Room Air 04/23/23 08:00 04/22/23 04/23/23 04/23/23 22:59 06:59 14:59 Intake Total 1238.75 / 1768.75 1017.5 / 2786.25 Balance 1238.75 / 1768.75 1017.5 / 2786.25 Weight last 48 hrs Weight 155 lb 6 oz Weight 160 lb 1 oz Data 04/23/23 04:22 04/23/23 04:22 A&P Assessment and plan (1) Cholecystitis: (2) Cirrhosis of liver: Plan laparoscopic cholecystectomy The risks and benefits of the procedure, including but not limited to, bleeding, infection, scar, numbness, pain, damage to surrounding structures, damage to common bile duct requiring additional surgery, conversion to an open procedure, were explained to the patient. He is understanding of the risks and wishes to proceed. She is high risk for cholecystectomy due to her advanced cirrhosis and history of TIPS procedure. Preoperatively. I explained these increased risk to her and she wishes to proceed. Attestations Medical Necessity Statement*: Per primary Coding Level of Care Code Acute Code for [facility] Diagnoses Cholecystitis K81.9 Cirrhosis of liver K74.60
--- NOTE | 2023-04-23 09:10 | PC.NURSE ---
patient transported off unit to preop.
[2023-04-23] MEDS: sodium chloride 0.9% 1,000 ML 30 ML IV (09:35)
[2023-04-23] MEDS: midazolam 1 mg/mL INJ 2 mL 2 MG IVP (09:50)
--- NOTE | 2023-04-23 10:37 | P.ANESASSM_ITS ---
Pre-Anesthetic Assessment Height/Weight: Height 1.63 m Weight 70.477 kg Temp Pulse Resp BP Pulse Ox O2 Del Method 98.0 F 65 16 125/77 98 Room Air 04/23/23 08:00 04/23/23 08:00 04/23/23 08:00 04/23/23 08:00 04/23/23 08:00 04/23/23 08:00 Operation Date: 04/23/23 11:30 Proposed Procedures p Laparoscopic Cholecystectomy(Not Applicable) - Mehdi Brooks DO Familial anesthetic complications: none Was Beta Kyle taken within 24 hours: N/A Was Clonidine taken within 24 hours: N/A Social No alcohol and No tobacco Exam alert, oriented x 3, clear to auscultation bilaterally and regular rate & rhythm Airway Submandibular: within normal limits Cervical ROM: within normal limits Mallampati: Class II Dentition: false CV/HEM Hypertension GI Gastroesophageal Reflux Disease Neuropsych Anxiety and Depression Anesthetic Plan ASA status: 2 Anesthesia: General Medications/Allergies Home Medications Medication Instructions Recorded Confirmed Last Taken Type amlodipine 10 mg tablet 10 mg PO DAILY@14 03/05/23 04/16/23 03/23/23 History dicyclomine 10 mg capsule 10 mg PO TID PRN Cramps 03/05/23 04/16/23 03/05/23 10:00 History escitalopram oxalate 10 mg tablet 10 mg PO DAILY@14 mental health 03/05/23 04/16/23 03/23/23 History ondansetron HCl 4 mg tablet 4 mg PO Q8H PRN Nausea And Vomiting 03/05/23 04/16/23 03/05/23 History pantoprazole 40 mg tablet,delayed 40 mg PO DAILY@14 03/05/23 04/16/23 03/23/23 History release hydrocodone 7.5 mg-acetaminophen 1 tab PO Q8H PRN pain 7 days #20 04/02/23 04/16/23 Unknown Rx 325 mg tablet tabs Allergies Allergy/AdvReac Type Severity Reaction Status Date / Time prochlorperazine Allergy Intermediate ADR-Irritab Verified 04/15/23 15:56 [From Compazine] le compazine Allergy makes her Uncoded 04/15/23 15:56 want to run Current Medications Generic Name Dose Route Start Last Admin Trade Name Freq PRN Reason Stop Dose Admin Amlodipine Besylate 10 mg 04/16/23 14:00 04/22/23 14:05 Amlodipine 10 Mg Tablet PO 10 mg DAILY@14 LOC Administration Enoxaparin Sodium 40 mg 04/15/23 22:30 04/22/23 21:38 Enoxaparin 40 Mg/0.4 Ml Syringe SUBCUT Not Given Q24H [facility] Escitalopram Oxalate 10 mg 04/16/23 14:00 04/22/23 14:04 Escitalopram 10 Mg Tablet PO 10 mg DAILY@14 LOC Administration Piperacillin Sod/Tazobactam 50 mls @ 12.5 mls/hr 04/15/23 22:30 04/23/23 09:30 Sod 3.375 gm/ Sodium Chloride IV Infused Q8H [facility] Infusion Protocol As Directed Sodium Chloride 1,000 mls @ 75 mls/hr 04/15/23 21:42 04/23/23 04:38 Sodium Chloride 0.9% IV 75 mls/hr .[id number] LOC Administration Sodium Chloride 1,000 mls @ 30 mls/hr 04/23/23 09:15 04/23/23 09:35 Sodium Chloride 0.9% IV 04/24/23 09:14 30 mls/hr .Q24H LOC Administration Metoclopramide HCl 5 mg 04/15/23 21:42 04/22/23 18:34 Metoclopramide 5 Mg/Ml Sdv 2 Ml IVP 5 mg Q6H PRN Administration NAUSEA AND VOMITING Midazolam HCl 2 mg 04/23/23 09:13 04/23/23 09:50 Midazolam 1 Mg/Ml Inj 2 Ml IVP 2 mg ONCE PRN Administration Preop Anxiety Morphine Sulfate 2 mg 04/17/23 14:00 04/22/23 19:50 Morphine 4 Mg/Ml Sdv 1 Ml IVP 2 mg Q8H PRN Administration BREAKTHROUGH PAIN Ondansetron HCl 8 mg 04/16/23 07:32 04/22/23 15:44 Ondansetron 2 Mg/Ml Sdv 2 Ml IVP 8 mg Q6H PRN Administration NAUSEA AND VOMITING Pantoprazole Sodium 40 mg 04/15/23 22:30 04/22/23 23:02 Pantoprazole 40 Mg Sdv IVP 40 mg Q12H LOC Administration Trazodone HCl 50 mg 04/15/23 21:42 04/22/23 21:38 Trazodone 50 Mg Tablet PO Not Given BEDTIME [facility] Anesthesia Medical History Renal mass Basal cell carcinoma (BCC) Chronic right shoulder pain Chronic neck pain Constipation Diverticulosis of colon Generalized anxiety disorder Cirrhosis of liver History of past hepatitis C that was treated, 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 Cervical radiculopathy Herniation of left side of L4-L5 intervertebral disc HTN (hypertension) Depression Degenerative disk disease 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, 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 Surgical History History of hysterectomy S/P TIPS (transjugular intrahepatic portosystemic shunt) History of neck surgery Family History Mother Heart problem Brother Heart problem Denies family history of Pancreatitis Social History Smoking and tobacco/nicotine status: current every day tobacco/nicotine user cigarettes [ Other cigarette details: 4-5 cigarettes per day] Second hand smoke exposure: Yes Alcohol intake: never Substance/Drug Use: never Data Anesthesia 04/23/23 04:22 04/23/23 04:22 Short CBC 04/22/23 04/23/23 Range/Units 05:57 04:22 WBC 5.97 3.27 L (3.29-11.43) 10^3/uL Hgb 13.00 11.60 (11.27-16.99) g/dL Hct 39.5 34.9 L (36-47) % MCV 82.5 L 83.1 L (85-98) fl Plt Count 177 D 138 L (157-399) 10^3/cmm Neut % (Auto) 41.4 42.1 % Neut # (Auto) 2.47 1.38 L (1.8-7.7) 10^3/uL BMP 04/22/23 04/23/23 05:57 04:22 Sodium 140 141 Potassium 3.3 L 3.3 L Chloride 104 106 Carbon Dioxide 22 25 BUN 1 L 1 L Creatinine 0.7 0.6 Glucose 65 98 Calcium 9.2 8.9 Cardiac Enzymes 04/22/23 04/23/23 Range/Units 05:57 04:22 NT-Pro-B Natriuret Pep 452 H 336 H (0-125) pg/mL Liver Function 04/22/23 04/23/23 Range/Units 05:57 04:22 Total Bilirubin 1.1 0.8 (0.15-1.2) mg/dL AST 27 22 (0-32) U/L ALT 17 14 (0-33) U/L Alkaline Phosphatase 52 47 (35-105) U/L Albumin 4.3 3.9 (3.5-5.2) g/dL Coags 04/22/23 04/23/23 05:57 04:22 C-Reactive Protein 3.0 3.0 Cardiac Studies: 2 No Data to Display
[2023-04-23] MEDS: lidocaine-epi 2% 20 mL INJ INJECTION (12:22)
--- NOTE | 2023-04-23 12:46 | P.OP_ITS ---
Operative Report Date of procedure: April 23, 2023 Pre-op diagnosis: History of gallstone pancreatitis Post-op diagnosis: same Procedure done: Laparoscopic cholecystectomy Implants: Surgicel x 2 Specimens removed/disposition: Gallbladder Surgeon: Mehdi Brooks DO Anesthesia: General and Local Complications: None apparent Brief History: Is a very pleasant 63-year-old female with cirrhosis status post TIPS procedure. She recently had gallstone pancreatitis and has recovered from that. Laparoscopic cholecystectomy is indicated. The risk benefits are explained and documented. Procedure: Patient was wheeled into the operative room and placed on the OR table in a supine position. Abdomen was inspected prepped and draped in usual sterile fashion. Time-out was performed and all present were in agreement. A 15 blade scalp was used to make a stab incision in the left upper quadrant and intra- abdominal insufflation was achieved using a Veress needle. After localizing the tissue incisions were made and a 5 millimeter trocar was placed into the umbilicus as well as 2 in the right upper quadrant. A 12 millimeter trocar was placed in the epigastrium. Gallbladder was grasped and elevated. The triangle of Calot was carefully dissected using blunt dissection and electrocautery until the triangle of Calot clearly identified. The cystic duct was clipped proximally and double clipped distally. The duct was then ligated proximally. The cystic artery was doubly clipped and ligated. The gallbladder was then removed from the liver bed using electrocautery. The gallbladder was removed from the abdomen using an Endo-Catch bag through the epigastric incision. The liver bed was inspected and bleeding was controlled with electrocautery and 2 pieces of Surgicel. There was quite significant cirrhosis. The abdomen was irrigated and suctioned. All ports removed. Skin was washed and dried. Incisions were closed with 4-0 Monocryl in a subcuticular interrupted fashion. Skin glue was applied. Patient tolerated the procedure well.
[2023-04-23] MEDS: HYDROmorphone 1 mg/mL INJ 1 mL 0.5 MG IVP (13:21)
[2023-04-23] MEDS: ondansetron 2 mg/ML SDV 2 mL 8 MG IVP (14:02)
--- NOTE | 2023-04-23 15:38 | ANE.PACU2 ---
Inpatient post-anesthesia follow up: Airway intact: Yes Vital signs: Temperature 97.5 F Pulse Rate 75 Respiratory Rate 15 Blood Pressure 132/83 Pulse Oximetry 93 Oxygen Delivery Me thod Room Air Oxygen Flow Rate 4 Fraction of Inspir ed Oxygen Hydration adequate: Yes Nausea and vomiting: No Pain level: 3 Mental status: Baseline
--- NOTE | 2023-04-23 16:03 | P.PN_ITS ---
Subjective 2 Subjective: Patient was seen this morning, seen in preop, denies any fevers, no chills, no cough planning on cholecystectomy this morning Vitals/I&O/Wt Last Vital Signs Temp 97.5 F L 04/23/23 13:58 Pulse 75 04/23/23 13:58 Resp 15 04/23/23 13:58 BP 132/83 04/23/23 13:58 Pulse Ox 93 04/23/23 13:58 O2 Del Method Room Air 04/23/23 13:58 O2 Flow Rate 4 04/23/23 13:15 04/23/23 04/23/23 04/23/23 06:59 14:59 22:59 Intake Total 1017.5 / 2786.25 50 / 50 Output Total 40 / 40 Balance 1017.5 / 2786.25 Weight last 48 hrs Weight 70.477 kg Weight 72.603 kg Physical Exam 2 Const: COMMON NORMALS: no acute distress and patient oriented x3 Resp: COMMON NORMALS: normal respiratory effort, No retractions, No use of accessory muscles and clear to auscultation bilaterally AUSCULTATION: clear to auscultation bilaterally Cardio: COMMON NORMALS: regular rate, regular rhythm, S1 normal heart sound present and S2 normal heart sound present RATE: regular rate RHYTHM: r egular rhythm HEART SOUNDS: S1 normal heart sound present and S2 normal heart sound present GI: COMMON NORMALS: Normal to inspection, nondistended, normoactive bowel sounds present and non-tender Extremity: COMMON NORMALS: no pedal edema Neuro: COMMON NORMALS: patient oriented x3 Psych: COMMON NORMALS: mental status grossly normal Data 04/23/23 04:22 04/23/23 04:22 A&P Assessment and plan (1) Cirrhosis of liver: (2) HTN (hypertension): (3) Acute pancreatitis: Plan Pancreatitis, ? With history of gallstone pancreatitis recent hospital discharge and outpatient follow-up for consideration of cholecystectomy, ? History of liver cirrhosis secondary to hep C status posttreatment, history of TIPS procedure, ? Plan -Laparoscopic cholecystectomy today ? IV Zosyn, ? Serial abdominal exams, ? CT scan abdomen pelvis within normal limits ? Ultrasound abdomen US/US abdomen complete* [id number] IMPRESSION: 1. 5.6 mm suspected gallbladder polyp, negative for cholecystitis. 2. Spleen somewhat prominent at 14 cm. ? Monitor LFTs, monitor lipase, ? IV Dilaudid for pain control, increased dose of Dilaudid, add on scopolamine patch, add 2 mg of morphine IV push every 8 hours for breakthrough pain ? Zofran for nausea, ? Full code, ? Lovenox for DVT prophylaxis General surgery on consult, plan for laparoscopic cholecystectomy today, concerns for recurrent pancreatitis, gallstone pancreatitis right upper quadrant pain Attestations 2 Medical Necessity Statement*: Patient requires hospitalization for cholecystectomy Diagnoses Cirrhosis of liver K74.60 HTN (hypertension) I10 Acute pancreatitis K85.90
[2023-04-23] MEDS: amlodipine 10 mg Tablet PO (16:10)
[2023-04-23] MEDS: oxyCODONE 5 mg IR Tab/Cap PO ×2 (16:10→20:34)
[2023-04-23] MEDS: escitalopram 10 mg Tablet PO (16:10)
[2023-04-23] MEDS: metoclopramide 5 mg/mL SDV 2 mL IVP (17:47)
[2023-04-23] MEDS: pantoprazole 40 mg SDV IVP (21:56)
[2023-04-24] VITALS (12 sets, daily range): BP systolic 128–170; BP diastolic 72–95; PULSE 78–92; RESP 16–18; TEMP 36.3–37.1; O2SAT 93–94
[2023-04-24] MEDS: ondansetron 2 mg/ML SDV 2 mL 8 MG IVP (01:45)
[2023-04-24] MEDS: HYDROmorphone 1 mg/mL INJ 1 mL IVP ×2 (01:45→06:43)
[2023-04-24] MEDS: oxyCODONE 5 mg IR Tab/Cap PO ×3 (03:48→10:58)
[2023-04-24 04:52] LABS: Hematocrit 34.4 % (36-47); Lymphocytes # 0.8 10^3/uL (0.8-4.8); Lymphocytes % 12.8 %; Mean Corpuscular HGB Conc 33.7 g/dL (30-55); Mean Corpuscular Hemoglobin 27.7 pg (27-33); Mean Corpuscular Volume 82.1 fl (85-98); Mean Platelet Volume 11.4 fL (7.4-10.4); Monocytes # 0.4 10^3/uL (0.2-0.9); Monocytes % 6.5 %; Neutrophils # 5.16 10^3/uL (1.8-7.7); Neutrophils % 80.4 %; Nucleated Red Blood Cells % 0 %; Platelet Count 131 10^3/cmm (157-399); Red Blood Count 4.19 10^6/uL (3.85-5.65); White Blood Count 6.42 10^3/uL (3.29-11.43)
[2023-04-24 05:08] LABS: Alanine Aminotransferase 14 U/L (0-33); Albumin Level 3.8 g/dL (3.5-5.2); Alkaline Phosphatase 47 U/L (35-105); Anion Gap 12.7 (5-19); Aspartate Amino Transferase 28 U/L (0-32); Blood Urea Nitrogen 2 mg/dL (8-23); Calcium 9.1 mg/dL (8.5-10.5); Carbon Dioxide 24 mmol/L (22-29); Chloride 104 mmol/L (98-107); Globulin 2.8 g/dL (1.3-4.6); Glomerular Filtration Rate 100.6 mL/min (90-130); Glucose 192 mg/dL (65-115); Magnesium 1.8 mg/dL (1.7-2.3); Osmolality Calculated 285 mOsm/kg (285-295); Phosphorus 1.6 mg/dL (2.5-4.5); Potassium 3.7 mmol/L (3.5-5.1); Sodium 137 mmol/L (136-145); Total Bilirubin 0.7 mg/dL (0.15-1.2); Total Protein 6.6 g/dL (6.6-8.7)
[2023-04-24 05:27] LABS: NT Pro B Type Natriuretic Pept 272 pg/mL (0-125); Procalcitonin 0.04 ng/mL (0-0.5)
[2023-04-24] MEDS: piperacillin-tazobactam 3.375 GM in sodium chloride 0.9% (plus) 50 ML IV (06:43)
[2023-04-24] MEDS: metoclopramide 5 mg/mL SDV 2 mL IVP (07:58)
--- NOTE | 2023-04-24 11:38 | PC.SOCIAL ---
IMM Update pg 2 of IMM updated and reviewed w/ patient. Copy provided and copy dated, initialed and placed in chart.
--- NOTE | 2023-04-24 12:17 | PM.PN ---
Subjective Subjective: Patient seen and examined. Pain controlled Vitals/I&O/Wt Last Vital Signs Temp 97.4 F L 04/24/23 11:35 Pulse 92 04/24/23 11:35 Resp 16 04/24/23 11:35 BP 170/95 04/24/23 11:35 Pulse Ox 94 04/24/23 11:35 O2 Del Method Room Air 04/24/23 11:35 O2 Flow Rate 4 04/23/23 13:15 04/23/23 04/24/23 04/24/23 22:59 06:59 14:59 Intake Total 550 / 600 466.25 / 1066.25 Balance 550 / 560 466.25 / 1026.25 Weight last 48 hrs Weight 161 lb 3 oz Weight 155 lb 6 oz Physical Exam Narrative: Abdomen: Soft, distended, appropriately tender, no guarding rebound or masses Data 04/24/23 04:23 04/24/23 04:23 A&P Assessment and plan (1) Cholecystitis: (2) Cirrhosis of liver: Plan Status post laparoscopic cholecystectomy Surgically stable for discharge Follow-up in my office in 2 weeks Only restriction is do not soak incisions underwater for 2 weeks. Attestations Medical Necessity Statement*: PER PRIMARY Coding Level of Care Code Acute Code for [facility] Diagnoses Cholecystitis K81.9 Cirrhosis of liver K74.60
--- NOTE | 2023-04-24 12:47 | P.DS_ITS ---
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 Reason for Visit Reason for Visit: Abd Pain Hospital Course Hospital Course Stella Covarrubias is a 62 year old female with a past medical history of pancreatitis, gallstone pancreatitis, history of liver cirrhosis, history of hepatitis C status posttreatment, history of TIPS procedure, who presents to [facility] for abdominal pain for the last 24 hours, patient is a general surgery a few weeks ago, there was plans on outpatient cholecystectomy, for recent hospitalization for gallstone pancreatitis however patient tells for the last 24 hours she was having epigastric discomfort, with nausea, vomiting, is having bowel movements, no fevers, no chills, no lightheadedness, dizziness Patient was admitted to [facility] for pancreatitis, with history of gallstone pancreatitis history of liver cirrhosis, status post hep C treatment, history of TIPS procedure, received IV fluids, IV antibiotics, abdominal rest, she continues to have persistent abdominal pain, had a prolonged hospitalization due to persistent abdominal pain, feeling nauseous, poor oral intake, remianed afebrile, LFTs within normal limits, bilirubin within normal limits, general surgery was consulted, recommended cholecystectomy, patient underwent laparoscopic cholecystectomy, tolerated surgery well, no recurrent abdominal pain, no nausea, no vomiting, tolerating general diet. Will be discharged home with close follow-up with general surgery as outpatient, oxycodone to be used sparingly for pain, if any recurrent abdominal pain go to the emergency room. For her anxiety, discharged on Xanax to be sparingly for anxiety - Please hydrate well, drink plenty of electrolyte balanced fluids, ? Please use oxycodone sparingly for pain, do not drive or operate machinery or drink while taking medication, ? Please use Xanax sparingly for anxiety, do not take with oxycodone, do not drive or operate heavy machinery or drink while taking medication Physical Exam Const: COMMON NORMALS: no acute distress and patient oriented x3 Resp: COMMON NORMALS: normal respiratory effort, No retractions, No use of accessory muscles and clear to auscultation bilaterally AUSCULTATION: clear to auscultation bilaterally Cardio: COMMON NORMALS: regular rate, regular rhythm, S1 normal heart sound present and S2 normal heart sound present RATE: regular rate RHYTHM: regular rhythm HEART SOUNDS: S1 normal heart sound present and S2 normal heart sound present GI: COMMON NORMALS: Normal to inspection, nondistended, normoactive bowel sounds present and non-tender OTHER: Surgical site looks clean and dry Extremity: COMMON NORMALS: no pedal edema Neuro: COMMON NORMALS: patient oriented x3 Psych: COMMON NORMALS: mental status grossly normal Discharge Data Studies Completed and Pending Completed Studies During Hospitalization Category Date Time Status CT abdomen pelvis wo con [id number] Stat Cat Scan 04/15/23 17:20 Completed US abdomen complete* [id number] Stat Ultrasound 04/15/23 18:25 Completed Pending at discharge Category Date Time Status Pathology: Surgical [PTH] Routine Pth 04/23/23 12:54 Received Radiology Impressions Abdomen/Pelvis CT 04/15/23 17:20 IMPRESSION: No acute abdominal findings. Abdomen Ultrasound 04/15/23 18:25 IMPRESSION: 1. 5.6 mm suspected gallbladder polyp, negative for cholecystitis. 2. Spleen somewhat prominent at 14 cm. Laboratory Results WBC 6.42 10^3/uL (3.29-11.43) 04/24/23 04:23 RBC 4.19 10^6/uL (3.85-5.65) 04/24/23 04:23 Hgb 11.60 g/dL (11.27-16.99) 04/24/23 04:23 Hct 34.4 % (36-47) L 04/24/23 04:23 MCV 82.1 fl (85-98) L 04/24/23 04:23 MCH 27.7 pg (27-33) 04/24/23 04: MCHC 33.7 g/dL (30-55) 04/24/23 04: RDW 13.0 % (12.1-15.1) 04/24/23 04:23 Plt Count 131 10^3/cmm (157-399) L 04/24/23 04:23 MPV 11.4 fL (7.4-10.4) H 04/24/23 04:23 Neut % (Auto) 80.4 % 04/24/23 04:23 Lymph % (Auto) 12.8 % 04/24/23 04:23 [place] % (Auto) 6.5 % 04/24/23 04:23 Eos % (Auto) 0.0 % 04/24/23 04:23 Baso % (Auto) 0.0 % 04/24/23 04:23 Neut # (Auto) 5.16 10^3/uL (1.8-7.7) 04/24/23 04:23 Lymph # (Auto) 0.8 10^3/uL (0.8-4.8) 04/24/23 04:23 [place] # (Auto) 0.4 10^3/uL (0.2-0.9) 04/24/23 04:23 Eos # (Auto) 0.0 10^3/uL (0.0-0.8) 04/24/23 04:23 Baso # (Auto) 0.0 10^3/uL (0.0-0.1) 04/24/23 04:23 Nucleated RBC % (auto) 0 % 04/24/23 04:23 Nucleated RBCs # 0.0 /100WBC 04/24/23 04:23 PT 16.10 SECONDS (12.1-14.9) H 04/18/23 04:35 INR 1.24 (0.8-1.2) H 04/18/23 04:35 Sodium 137 mmol/L (136-145) 04/24/23 04:23 Potassium 3.7 mmol/L (3.5-5.1) 04/24/23 04:23 Chloride 104 mmol/L (98-107) 04/24/23 04:23 Carbon Dioxide 24 mmol/L (22-29) 04/24/23 04:23 Anion Gap 12.7 (5-19) 04/24/23 04:23 BUN 2 mg/dL (8-23) L 04/24/23 04:23 Creatinine 0.6 mg/dL (0.5-0.9) 04/24/23 04:23 GFR Calculation 100.6 mL/min (90-130) 04/24/23 04:23 Glucose 192 mg/dL (65-115) H 04/24/23 04:23 Estimat Average Glucose 94 04/15/23 15:57 Hemoglobin A1c 4.9 % (4.0-6.0) 04/15/23 15:57 Calculated Osmolality 285 mOsm/kg (285-295) 04/24/23 04:23 Lactic Acid 1.8 mmol/L (0.5-2.2) 04/15/23 15:57 Calcium 9.1 mg/dL (8.5-10.5) 04/24/23 04:23 Phosphorus 1.6 mg/dL (2.5-4.5) L 04/24/23 04:23 Magnesium 1.8 mg/dL (1.7-2.3) 04/24/23 04:23 Total Bilirubin 0.7 mg/dL (0.15-1.2) 04/24/23 04:23 AST 28 U/L (0-32) 04/24/23 04:23 ALT 14 U/L (0-33) 04/24/23 04:23 Alkaline Phosphatase 47 U/L (35-105) 04/24/23 04:23 C-Reactive Protein 3.0 mg/L (0.0-4.9) 04/24/23 04:23 NT-Pro-B Natriuret Pep 272 pg/mL (0-125) H 04/24/23 04:23 Total Protein 6.6 g/dL (6.6-8.7) 04/24/23 04:23 Albumin 3.8 g/dL (3.5-5.2) 04/24/23 04:23 Globulin 2.8 g/dL (1.3-4.6) 04/24/23 04:23 Triglycerides 102 mg/dL (0-150) 04/15/23 15:57 Triglycerides 103 mg/dL (0-150) 04/15/23 15:57 Cholesterol 155 mg/dL (0-200) 04/15/23 15:57 LDL Cholesterol, Calc 80 mg/dL (50-129) 04/15/23 15:57 HDL Cholesterol 54 mg/dL (60-100) L 04/15/23 15:57 LDL/HDL Ratio 1.48 RATIO (0.00-3.22) 04/15/23 15:57 Cholesterol/HDL Ratio 2.87 mg/dL (0.0-4.40) 04/15/23 15:57 Lipase 240 U/L (13-60) H 04/15/23 15:57 Procalcitonin 0.04 ng/mL (0-0.5) 04/24/23 04:23 TSH 0.98 uIU/mL (0.27-4.20) 04/15/23 15:57 Urine Color Yellow (Yellow) 04/15/23 18:27 Urine Appearance Clear (CLEAR) 04/15/23 18:27 Urine pH 6.5 (5-7) 04/15/23 18:27 Ur Specific [place] 1.015 (1.005-1.030) 04/15/23 18:27 Urine Protein Neg (Negative) 04/15/23 18:27 Urine Glucose (UA) Norm (Normal) 04/15/23 18:27 Urine Ketones Negative (Negative) 04/15/23 18:27 Urine Blood Neg (Negative) 04/15/23 18:27 Urine Nitrate Negative (Negative) 04/15/23 18:27 Urine Bilirubin Neg (Negative) 04/15/23 18:27 Urine Urobilinogen Norm mg/dL (Negative) 04/15/23 18:27 Ur Leukocyte Esterase Negative (Negative) 04/15/23 18:27 Vitals Last Vital Signs Temp 97.4 F L 04/24/23 11:35 Pulse 92 04/24/23 11:35 Resp 16 04/24/23 11:35 BP 170/95 04/24/23 11:35 Pulse Ox 94 04/24/23 11:35 O2 Del Method Room Air 04/24/23 11:35 O2 Flow Rate 4 04/23/23 13:15 Discharge Plan Discharge Patient Disposition: Home Condition: Stable Prescriptions: New oxycodone 10 mg tablet 10 mg PO Q6H PRN (Reason: pain) Qty: 28 0RF Xanax 0.5 mg tablet 0.25 mg PO DAILY PRN (Reason: anxiety) 5 Days Qty: 3 0RF Continued ondansetron HCl 4 mg tablet 4 mg PO Q8H PRN (Reason: Nausea And Vomiting) amlodipine 10 mg tablet 10 mg PO DAILY@14 pantoprazole 40 mg tablet,delayed release (DR/EC) 40 mg PO DAILY@14 dicyclomine 10 mg capsule 10 mg PO TID PRN (Reason: Cramps) escitalopram oxalate 10 mg tablet 10 mg PO DAILY@14 Discontinued hydrocodone-acetaminophen 7.5-325 mg tablet 1 tab PO Q8H PRN (Reason: pain) 7 Days Qty: 20 0RF Discharge Orders: Discharge Order (Routine); Ordered 04/24/23 Ordered By: Alexys Belcher Referrals: [facility] Home [facility] Up [Other] (Please call this number after you are home to see if you qualify for in home services. You will need your [facility] number available when you call. ) Mehid Brooks DO [Physician] - 04/28/23 10:15 am Conrad Amaya [Primary Care Provider] - 04/24/23 10:00 am Discharge Diet: Advance as tolerated Discharge Activity: Resume usual activity Patient Instructions: Opioid Safety, Post Anesthesia Care Activity Restrictions/Additional Instructions: - Please hydrate well, drink plenty of electrolyte balanced fluids, ? Please use oxycodone sparingly for pain, do not drive or operate machinery or drink while taking medication, ? Please use Xanax sparingly for anxiety, do not take with oxycodone, do not drive or operate heavy machinery or drink while taking medication Discharge Attestations Time Spent in Discharge Care*: greater than 30 min Status at Discharge: Cognitive status at discharge: cognitively intact , Behavioral status at discharge: cooperative , Quality Metrics Clinical Quality Measures [ No reported AMI, CVA or VTE this stay] Coding Level of Care Code 87210 Total time (in minutes) for Discharge: 45 Diagnoses Cholecystitis K81.9 Cirrhosis of liver K74.60
[2023-04-24] MEDS: HYDROmorphone 1 mg/mL INJ 1 mL 0.5 MG IVP (12:57)
== END 2023-04-24 13:47 | disposition home or self-care (01) | DRG 418 ==
LOC: ER 16:15 → MEDSURG 20:21
PROVIDERS: Surgery; Admitting Provider Family Medicine; Emergency Provider Family Medicine; PCP Family Medicine; Visit Provider Family Medicine
PROC: 0FT44ZZ Resection of Gallbladder, Percutaneous Endoscopic Approach (ICD-10-PCS; CPT 47562; principal; 2023-04-23 11:30)
DX: K85.90 Acute pancreatitis without necrosis or infection, unspecified (principal); I85.00 Esophageal varices without bleeding; K81.9 Cholecystitis, unspecified; K74.60 Unspecified cirrhosis of liver; Z86.19 Personal history of other infectious and parasitic diseases; Z85.828 Personal history of other malignant neoplasm of skin; F41.1 Generalized anxiety disorder; I10 Essential (primary) hypertension; F32.A Depression, unspecified; Z72.0 Tobacco use
CPT/HCPCS: 36415; 74176; 76700; 80053; 80061; 81003; 83036; 83605; 83690; 83735; 83880; 84100; 84145; 84443; 84478; 85025; 85610; 86140; 87040; 88304; 90686; 93005; 96372; C9113; G0378; J1100; J1170; J1650; J1885; J2250; J2270; J2405; J2543; J2704; J2710; J2765; J3010; J3480; J3490; J7030

== ENCOUNTER 2023-05-07 15:22 | Emergency (ER) | payer MEDICARE, MEDICAID, SELFPAY ==
[2023-05-07] VITALS (8 sets, daily range): BP systolic 112–143; BP diastolic 65–97; PULSE 60–77; RESP 16; TEMP 36.7; O2SAT 93–97; BMI 22.3
--- NOTE | 2023-05-07 15:27 | W.ED.ABDPA2 ---
Documented by User: Sher Trejo DO 05/08/23 14:12 HPI - Abdominal Pain General: Chief Complaint: Abdominal Pain Stated Complaint: ABDOMINAL PAIN/ N/V Time Seen by Provider: 05/07/23 15:24 Source: patient Mode of arrival: EMS History of Present Illness: 63-year-old female presents emergency room with diffuse upper abdominal pain. She denies dysuria urgency or frequency. Earlier this month she was hospitalized with pancreatitis and had cholecystectomy done laparoscopically. She denies any fever sweats chills no dysuria urgency or frequency no hematuria. She has had nausea with bilious vomiting she did have a little bit of blood-streaked stools she reports that this began yesterday. MD elicited complaint: abdominal pain Pertinent past history: other (Pancreatitis/recent cholecystectomy) Onset (ago): day(s) Pain Consistency: constant Location: Epigastric Severity: mild Quality: cramping Radiation: none Exacerbating factors: nothing Relieving factors: nothing Associated Symptoms: Reports GI cramping, hematochezia, nausea, poor appetite and vomiting; Denies anorexia, belching, bloating, change in bowel habits, change in stool character, chills, coffee ground emesis, constipation, diarrhea, dyspepsia, dysuria, excessive flatus, fever(s), heartburn, hematuria, hematemesis, fecal incontinence, loose stools, melena and syncope Review of Systems Const: Denies: fever(s) or chills Card: Denies: chest pain or syncope Resp: Denies: dyspnea GI: Reports: abdominal pain, nausea, vomiting, GI cramping and hematochezia; Denies: hematemesis, coffee ground emesis, heartburn, diarrhea, constipation, bloating, belching, excessive flatus, fecal incontinence, change in bowel habits, change in stool character or melena : Denies: dysuria, urinary frequency, urinary urgency or hematuria Musc: Denies: neck pain or back pain Skin/Breast: Denies: rash PFSH ED PFSH: Medical History Renal mass Basal cell carcinoma (BCC) Chronic right shoulder pain Chronic neck pain Constipation Diverticulosis of colon Generalized anxiety disorder Cirrhosis of liver History of past hepatitis C that was treated, 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 Cervical radiculopathy Herniation of left side of L4-L5 intervertebral disc HTN (hypertension) Depression Degenerative disk disease 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, 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 Surgical History History of hysterectomy S/P TIPS (transjugular intrahepatic portosystemic shunt) History of neck surgery Family History Mother Heart problem Brother Heart problem Denies family history of Pancreatitis Social History Smoking and tobacco/nicotine status: current every day tobacco/nicotine user cigarettes [ Other cigarette details: 4-5 cigarettes per day] Second hand smoke exposure: Yes Alcohol intake: never Substance/Drug Use: never Physical Exam Const: GENERAL APPEARANCE: cooperative and comfortable ORIENTATION/CONSCIOUSNESS: Yes awake, Yes oriented to person, Yes oriented to place and Yes oriented to time HENMT: COMMON NORMALS: normocephalic, atraumatic and hearing grossly normal bilaterally HEAD & SCALP: normocephalic and atraumatic Resp: COMMON NORMALS: normal respiratory effort, No retractions, No use of accessory muscles and clear to auscultation bilaterally AUSCULTATION: clear to auscultation bilaterally Cardio: COMMON NORMALS: regular rate, regular rhythm and No murmurs present (Cardio) RATE: regular rate RHYTHM: regular rhythm GI: COMMON NORMALS: No hepatosplenomegaly present AUSCULTATION: Yes normoactive bowel sounds PALPATION: Yes Tenderness to palpation present (GI) (Diffuse), No Guarding due to palpation present (GI) and Yes No hepatosplenomegaly present : COMMON NORMALS: Yes no CVA tenderness BLADDER/KIDNEY EXAM: Yes no CVA tenderness Back/Pelvis: COMMON NORMALS: no CVA tenderness Extremity: COMMON NORMALS: normal to inspection, capillary refill normal, no clubbing, cyanosis or edema, no calf tenderness and no pedal edema Neuro: SENSORIUM/ORIENTATION: Yes oriented to person, Yes oriented to place and Yes oriented to time Skin: COMMON NORMALS: no rashes or lesions noted GENERAL SKIN EXAM: no rashes or lesions noted Course Vital Signs: Vital signs: Vital Signs Temperature 98.1 F 05/07/23 15:27 Pulse Rate 61 05/08/23 10:06 Respiratory Rate 18 05/08/23 10:06 Blood Pressure 118/72 05/08/23 10:06 Pulse Oximetry 97 05/08/23 10:06 Oxygen Delivery Me thod Room Air 05/08/23 10:06 MDM - Abdominal Pain Medical Decision Making Care signed out to Dr. Yang at change of shift. See final notes for diagnosis and disposition. Multiple facilities was called including but not limited to [facility], [facility], [facility], [facility]. Everyone was full or did not have a GI doctor that can do an ERCP except [facility]. We are on a wait list for them. This was explained to the patient and patient is agreeable to stay in ER on the wait list. 05/08/2023 6:30 AM I seen the patient yesterday afternoon initially. CT was abnormal reviewed with radiology and consult to general surgery. General surgery concurred that this was most likely a bile leak and documented. We do not have the ability to manage this complication here and we have been trying to get the patient transferred. Assumed care at change of shift chart reviewed and asked Dr. Yang to start some Zosyn this morning patient has received a single dose. She continues to have moderate pain which is controlled with IV pain medications. Will repeat her labs this morning. We are calling facilities again including some facility called last night to reevaluate whether or not they have availability to accept the patient on transfer. We contacted [facility] again this morning they now have a bed available and have excepted patient on transfer. Repeat labs reviewed this morning no significant change. Lab Data 05/08/23 07:23 05/08/23 07:23 Labs/Radiology: Radiology Impressions Abdomen/Pelvis CT 05/07/23 16:04 IMPRESSION: 1. Findings compatible with recent cholecystectomy. 3.5 x 1.8 cm fluid attenuation structure in the gallbladder fossa containing a small air bubble without well defined wall most likely representing postoperative seroma/hematoma. No evidence of biliary dilatation. 2. Features of hepatic cirrhosis; interval appearance of lrpq-ht-boqdovdt ascites. 3. Nonspecific perirectal fat infiltration and rectal wall thickening; differential diagnosis includes entities such as inflammatory change and congestive change with neoplasm less likely though not excluded. 4. Mild gastrohepatic ligament lymphadenopathy. 5. Possible gastric wall thickening, finding of low specificity given nondistention. Mural thickening distal thoracic esophagus. Although nonspecific, Both of these may be related to underlying portal hypertension. ADDENDUM: 05/07/231701 Case discussed with Dr. Koroma REPORT CONTAINS FINDINGS THAT MAY BE CRITICAL TO PATIENT CARE. The findings were verbally communicated via telephone conference with SHER TREJO at 5:00 PM EXCHANGE ADMINISTRATOR on 05/07/2023. The findings were acknowledged and understood. Laboratory Results WBC 4.51 10^3/uL (3.29-11.43) 05/08/23 07: RBC 4.34 10^6/uL (3.85-5.65) 05/08/23 07: Hgb 12.00 g/dL (11.27-16.99) 05/08/23 07: Hct 37.7 % (36-47) 05/08/23 07: MCV 86.9 fl (85-98) D 05/08/23 07: MCH 27.6 pg (27-33) 05/08/23 07: MCHC 31.8 g/dL (30-55) 05/08/23 07: RDW 13.1 % (12.1-15.1) 05/08/23 07: Plt Count 188 10^3/cmm (157-399) 05/08/23 07: MPV 10.9 fL (7.4-10.4) H 05/08/23: Neut % (Auto) 54.1 % 05/08/23 07: Lymph % (Auto) 32.4 % 05/08/23 07:23 Bullitt % (Auto) 7.8 % 05/08/23 07: Eos % (Auto) 4.4 % 05/08/23 07: Baso % (Auto) 1.1 % 05/08/23 07: Neut # (Auto) 2.44 10^3/uL (1.8-7.7) 05/08/23 07: Lymph # (Auto) 1.5 10^3/uL (0.8-4.8) 05/08/23 07: Bullitt # (Auto) 0.4 10^3/uL (0.2-0.9) 05/08/23 07:23 Eos # (Auto) 0.2 10^3/uL (0.0-0.8) 05/08/23 07: Baso # (Auto) 0.1 10^3/uL (0.0-0.1) 05/08/23 07:23 Nucleated RBC % (auto) 0 % 05/08/23 07: Nucleated RBCs # 0.0 /100WBC 05/08/23 07:23 PT 16.20 SECONDS (12.1-14.9) H 05/08/23 07:23 INR 1.25 (0.8-1.2) H 05/08/23 07:23 APTT 30.2 SECONDS (23.9-36.7) 05/08/23 07:23 Sodium 143 mmol/L (136-145) 05/08/23 07:23 Potassium 3.5 mmol/L (3.5-5.1) 05/08/23 07: Chloride 110 mmol/L (98-107) H 05/08/23 07:23 Carbon Dioxide 24 mmol/L (22-29) 05/08/23 07:23 Anion Gap 12.5 (5-19) 05/08/23 07:23 BUN 6 mg/dL (8-23) L 05/08/23 07:23 Creatinine 0.5 mg/dL (0.5-0.9) 05/08/23 07:23 GFR Calculation 124.2 mL/min (90-130) 05/08/23 07: Glucose 74 mg/dL (65-115) 05/08/23 07:23 Calculated Osmolality 292 mOsm/kg (285-295) 05/08/23 07:23 Lactic Acid 0.9 mmol/L (0.5-2.2) 05/07/23 16:12 Calcium 8.5 mg/dL (8.5-10.5) 05/08/23 07: Total Bilirubin 0.8 mg/dL (0.15-1.2) 05/08/23 07:23 AST 26 U/L (0-32) 05/08/23 07:23 ALT 11 U/L (0-33) 05/08/23 07:23 Alkaline Phosphatase 51 U/L (35-105) 05/08/23 07:23 Ammonia 30 umol/L (11-51) 05/07/23 17:15 Total Protein 6.0 g/dL (6.6-8.7) L 05/08/23 07:23 Albumin 3.5 g/dL (3.5-5.2) 05/08/23 07: Globulin 2.5 g/dL (1.3-4.6) 05/08/23 07:23 Lipase 83 U/L (13-60) H 05/07/23 16:12 Urine Color Yellow (Yellow) 05/07/23 15:42 Urine Appearance Clear (CLEAR) 05/07/23 15:42 Urine pH 6.5 (5-7) 05/07/23 15:42 Ur Specific Osborne 1.005 (1.005-1.030) 05/07/23 15:42 Urine Protein Neg (Negative) 05/07/23 15:42 Urine Glucose (UA) Norm (Normal) 05/07/23 15:42 Urine Ketones Negative (Negative) 05/07/23 15:42 Urine Blood Neg (Negative) 05/07/23 15:42 Urine Nitrate Negative (Negative) 05/07/23 15:42 Urine Bilirubin Neg (Negative) 05/07/23 15:42 Urine Urobilinogen Neg mg/dL (Negative) 05/07/23 15:42 Ur Leukocyte Esterase Negative (Negative) 05/07/23 15:42 Discharge Plan Discharge Patient Disposition: Xfer Short-Term Hosp Clinical Impression: Bile duct leak Abdominal pain Qualifiers: Abdominal location: right upper quadrant Qualified Code(s): R10.11 - Right upper quadrant pain Condition: Stable Referrals: Conrad Amaya [Primary Care Provider] - Patient Instructions: Abdominal Pain (ED) Coding Level of Care Code ED Car Distributor for Chg Fwd Documented by User: Gilbert Yang DO 05/07/23 23:23 HPI - Abdominal Pain General: Chief Complaint: Abdominal Pain Stated Complaint: ABDOMINAL PAIN/ N/V Time Seen by Provider: 05/07/23 15:24 [facility] PFSH: Medical History Renal mass Basal cell carcinoma (BCC) Chronic right shoulder pain Chronic neck pain Constipation Diverticulosis of colon Generalized anxiety disorder Cirrhosis of liver History of past hepatitis C that was treated, 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 Cervical radiculopathy Herniation of left side of L4-L5 intervertebral disc HTN (hypertension) Depression Degenerative disk disease 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, 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 Surgical History History of hysterectomy S/P TIPS (transjugular intrahepatic portosystemic shunt) History of neck surgery Family History Mother Heart problem Brother Heart problem Denies family history of Pancreatitis Social History Smoking and tobacco/nicotine status: current every day tobacco/nicotine user cigarettes [ Other cigarette details: 4-5 cigarettes per day] Second hand smoke exposure: Yes Alcohol intake: never Substance/Drug Use: never Course Vital Signs: Vital signs: Vital Signs Temperature 98.1 F 05/07/23 15:27 Pulse Rate 61 05/08/23 10:06 Respiratory Rate 18 05/08/23 10:06 Blood Pressure 118/72 05/08/23 10:06 Pulse Oximetry 97 05/08/23 10:06 Oxygen Delivery Me thod Room Air 05/08/23 10:06 MDM - Abdominal Pain Medical Decision Making Care signed out to Dr. Yang at change of shift. See final notes for diagnosis and disposition. Multiple facilities was called including but not limited to [facility], [facility], [facility], [facility]. Everyone was full or did not have a GI doctor that can do an ERCP except [facility]. We are on a wait list for them. This was explained to the patient and patient is agreeable to stay in ER on the wait list. Differential Diagnosis Likely abdominal pain; Unlikely acute appendicitis, calculus of kidney, constipation, diverticulitis, endometriosis, gastroenteritis, pancreatitis or small bowel obstruction Medical Records I reviewed the patient's medical records. Lab Data I reviewed the patient's lab results. 05/08/23 07:23 05/08/23 07:23 Labs/Radiology: Radiology Impressions Abdomen/Pelvis CT 05/07/23 16:04 IMPRESSION: 1. Findings compatible with recent cholecystectomy. 3.5 x 1.8 cm fluid attenuation structure in the gallbladder fossa containing a small air bubble without well defined wall most likely representing postoperative seroma/hematoma. No evidence of biliary dilatation. 2. Features of hepatic cirrhosis; interval appearance of xzjw-bg-jopaclky ascites. 3. Nonspecific perirectal fat infiltration and rectal wall thickening; differential diagnosis includes entities such as inflammatory change and congestive change with neoplasm less likely though not excluded. 4. Mild gastrohepatic ligament lymphadenopathy. 5. Possible gastric wall thickening, finding of low specificity given nondistention. Mural thickening distal thoracic esophagus. Although nonspecific, Both of these may be related to underlying portal hypertension. ADDENDUM: 05/07/231701 Case discussed with Dr. Koroma REPORT CONTAINS FINDINGS THAT MAY BE CRITICAL TO PATIENT CARE. The findings were verbally communicated via telephone conference with SHER TREJO at 5:00 PM EXCHANGE ADMINISTRATOR on 05/07/2023. The findings were acknowledged and understood. Laboratory Results WBC 4.51 10^3/uL (3.29-11.43) 05/08/23 07: RBC 4.34 10^6/uL (3.85-5.65) 05/08/23: Hgb 12.00 g/dL (11.27-16.99) 05/08/23 07: Hct 37.7 % (36-47) 05/08/23 07: MCV 86.9 fl (85-98) D 05/08/23: MCH 27.6 pg (27-33) 05/08/23 07: MCHC 31.8 g/dL (30-55) 05/08/23 07: RDW 13.1 % (12.1-15.1) 05/08/23 07: Plt Count 188 10^3/cmm (157-399) 05/08/23 07: MPV 10.9 fL (7.4-10.4) H 05/08/23 07: Neut % (Auto) 54.1 % 05/08/23 07: Lymph % (Auto) 32.4 % 05/08/23 07: Bullitt % (Auto) 7.8 % 05/08/23 07:23 Eos % (Auto) 4.4 % 05/08/23 07: Baso % (Auto) 1.1 % 05/08/23 07: Neut # (Auto) 2.44 10^3/uL (1.8-7.7) 05/08/23 07: Lymph # (Auto) 1.5 10^3/uL (0.8-4.8) 05/08/23 07: Bullitt # (Auto) 0.4 10^3/uL (0.2-0.9) 05/08/23 07: Eos # (Auto) 0.2 10^3/uL (0.0-0.8) 05/08/23 07: Baso # (Auto) 0.1 10^3/uL (0.0-0.1) 05/08/23 07: Nucleated RBC % (auto) 0 % 05/08/23 07: Nucleated RBCs # 0.0 /100WBC 05/08/23 07: PT 16.20 SECONDS (12.1-14.9) H 05/08/23 07:23 INR 1.25 (0.8-1.2) H 05/08/23 07:23 APTT 30.2 SECONDS (23.9-36.7) 05/08/23 07:23 Sodium 143 mmol/L (136-145) 05/08/23 07:23 Potassium 3.5 mmol/L (3.5-5.1) 05/08/23 07: Chloride 110 mmol/L (98-107) H 05/08/23 07:23 Carbon Dioxide 24 mmol/L (22-29) 05/08/23 07:23 Anion Gap 12.5 (5-19) 05/08/23 07:23 BUN 6 mg/dL (8-23) L 05/08/23 07:23 Creatinine 0.5 mg/dL (0.5-0.9) 05/08/23 07:23 GFR Calculation 124.2 mL/min (90-130) 05/08/23 07: Glucose 74 mg/dL (65-115) 05/08/23 07:23 Calculated Osmolality 292 mOsm/kg (285-295) 05/08/23 07: Lactic Acid 0.9 mmol/L (0.5-2.2) 05/07/23 16:12 Calcium 8.5 mg/dL (8.5-10.5) 05/08/23 07: Total Bilirubin 0.8 mg/dL (0.15-1.2) 05/08/23 07: AST 26 U/L (0-32) 05/08/23 07: ALT 11 U/L (0-33) 05/08/23 07: Alkaline Phosphatase 51 U/L (35-105) 05/08/23 07: Ammonia 30 umol/L (11-51) 05/07/23 17:15 Total Protein 6.0 g/dL (6.6-8.7) L 05/08/23 07: Albumin 3.5 g/dL (3.5-5.2) 05/08/23 07: Globulin 2.5 g/dL (1.3-4.6) 05/08/23 07: Lipase 83 U/L (13-60) H 05/07/23 16:12 Urine Color Yellow (Yellow) 05/07/23 15:42 Urine Appearance Clear (CLEAR) 05/07/23 15:42 Urine pH 6.5 (5-7) 05/07/23 15:42 Ur Specific Osborne 1.005 (1.005-1.030) 05/07/23 15:42 Urine Protein Neg (Negative) 05/07/23 15:42 Urine Glucose (UA) Norm (Normal) 05/07/23 15:42 Urine Ketones Negative (Negative) 05/07/23 15:42 Urine Blood Neg (Negative) 05/07/23 15:42 Urine Nitrate Negative (Negative) 05/07/23 15:42 Urine Bilirubin Neg (Negative) 05/07/23 15:42 Urine Urobilinogen Neg mg/dL (Negative) 05/07/23 15:42 Ur Leukocyte Esterase Negative (Negative) 05/07/23 15:42 All radiology interpretation(s) finalized by discharge Discharge Plan Discharge Patient Disposition: Xfer Short-Term Hosp Clinical Impression: Bile duct leak Abdominal pain Qualifiers: Abdominal location: right upper quadrant Qualified Code(s): R10.11 - Right upper quadrant pain Condition: Stable Referrals: Conrad Amaya [Primary Care Provider] - Patient Instructions: Abdominal Pain (ED) Coding Level of Care Code ED Car Distributor for Nadia Poole
[2023-05-07] MEDS: ondansetron 2 mg/ML SDV 2 mL 4 MG IVP ×2 (15:34→21:17)
[2023-05-07] MEDS: sodium chloride 0.9% 1,000 ML 999 ML IV (15:34)
--- NOTE | 2023-05-07 16:04 | CTR_ITS ---
PROCEDURE INFORMATION: Exam: CT Abdomen And Pelvis Without Contrast Exam date and time: 05/07/2023 4:24 PM Age: 63 years old Clinical indication: Abdominal pain; Generalized; Prior surgery; Surgery date: <1 month; Surgery type: Gb removed 10 days ago TECHNIQUE: Imaging protocol: Computed tomography of the abdomen and pelvis without contrast. Radiation optimization: All CT scans at this facility use at least one of these dose optimization techniques: automated exposure control; mA and/or kV adjustment per patient size (includes targeted exams where dose is matched to clinical indication); or iterative reconstruction. REPORTING DATA: Count of CT and Cardiac NM exams in prior 12 months: This patient has received 4 known CTs and 0 known cardiac nuclear medicine studies in the 12 months prior to the current study. COMPARISON: CT abdomen pelvis wo con [id number] 04/15/2023 5:29 PM RADIATION DOSE METRICS: Total DLP (mGy-cm): 473 FINDINGS: Lungs: No significant pathology at the imaged lung bases. Mediastinal space: Mural thickening distal thoracic esophagus. Liver: Features of hepatic cirrhosis are present. Inhomogeneous liver parenchyma without discrete mass given limitations of noncontrast technique. Gallbladder and bile ducts: Interval cholecystectomy. Fluid attenuation structure in the gallbladder fossa measuring 3.5 by 1.8 cm containing a small air bubble without a well-defined wall. No biliary dilatation. Pancreas: No significant pancreatic pathology. Spleen: No significant splenic pathology. Adrenal glands: No significant adrenal pathology. Kidneys and ureters: No significant renal pathology. Stomach and bowel: Colonic diverticulosis without evidence of focal inflammatory change. Mild perirectal fat infiltration and rectal wall thickening also present on the prior exam. There is possible gastric wall thickening although this is a low specificity finding given nondistention. Appendix: No appendiceal pathology evident. Intraperitoneal space: Interval appearance of bhug-lu-njnquato ascites. Vasculature: No abdominal aortic aneurysm. Lymph nodes: Mild gastrohepatic ligament lymphadenopathy measuring up to 1.3 cm short axis. Urinary bladder: Urinary bladder is nondistended limiting assessment of the wall. Reproductive: Prior hysterectomy. No significant adnexal pathology. Bones/joints: Marked degenerative disc disease at L4-5. Soft tissues: Unremarkable. CT/CT abdomen pelvis wo con [id number] IMPRESSION: 1. Findings compatible with recent cholecystectomy. 3.5 x 1.8 cm fluid attenuation structure in the gallbladder fossa containing a small air bubble without well defined wall most likely representing postoperative seroma/hematoma. No evidence of biliary dilatation. 2. Features of hepatic cirrhosis; interval appearance of ihrq-ax-gyqdgelh ascites. 3. Nonspecific perirectal fat infiltration and rectal wall thickening; differential diagnosis includes entities such as inflammatory change and congestive change with neoplasm less likely though not excluded. 4. Mild gastrohepatic ligament lymphadenopathy. 5. Possible gastric wall thickening, finding of low specificity given nondistention. Mural thickening distal thoracic esophagus. Although nonspecific, Both of these may be related to underlying portal hypertension.
[2023-05-07 16:14] LABS: Add Urine Microscopic? NO; Charge for UA Resulting for Rev
[2023-05-07 16:20] LABS: Basophils % 0.8 %; Eosinophils # 0.1 10^3/uL (0.0-0.8); Eosinophils % 2.6 %; Hematocrit 39.5 % (36-47); Lymphocytes # 1.6 10^3/uL (0.8-4.8); Lymphocytes % 30.1 %; Mean Corpuscular HGB Conc 32.7 g/dL (30-55); Mean Corpuscular Hemoglobin 26.6 pg (27-33); Mean Corpuscular Volume 81.4 fl (85-98); Mean Platelet Volume 10.8 fL (7.4-10.4); Monocytes # 0.4 10^3/uL (0.2-0.9); Monocytes % 7.2 %; Neutrophils # 3.14 10^3/uL (1.8-7.7); Neutrophils % 59.1 %; Nucleated Red Blood Cells % 0 %; Platelet Count 209 10^3/cmm (157-399); Red Blood Count 4.85 10^6/uL (3.85-5.65); Red Cell Distribution Width 13.1 % (12.1-15.1); White Blood Count 5.31 10^3/uL (3.29-11.43)
[2023-05-07 16:27] LABS: Bilirubin Urine Neg (Negative); Blood Urine Neg (Negative); Glucose Urine UA Norm (Normal); Ketones Urine Negative (Negative); Leukocyte Esterase Urine Negative (Negative); Nitrate Urine Negative (Negative); Protein Urine Neg (Negative); Specific Gravity, Urine 1.005 (1.005-1.030); Urine Appearance Clear (CLEAR); Urine Color Yellow (Yellow); Urobilinogen Urine Neg (Negative); pH Urine 6.5 (5-7)
[2023-05-07 16:41] LABS: Alanine Aminotransferase 10 U/L (0-33); Alkaline Phosphatase 59 U/L (35-105); Anion Gap 10.6 (5-19); Aspartate Amino Transferase 21 U/L (0-32); Blood Urea Nitrogen 6 mg/dL (8-23); Calcium 9.1 mg/dL (8.5-10.5); Carbon Dioxide 26 mmol/L (22-29); Chloride 107 mmol/L (98-107); Creatinine Clr Calc Pharmacy 101.2189; Glomerular Filtration Rate 124.2 mL/min (90-130); Glucose 90 mg/dL (65-115); Lipase 83 U/L (13-60); Osmolality Calculated 287 mOsm/kg (285-295); Potassium 3.6 mmol/L (3.5-5.1); Sodium 140 mmol/L (136-145); Total Bilirubin 0.6 mg/dL (0.15-1.2)
[2023-05-07] MEDS: morphine 4 mg/mL SDV 1 mL IVP ×2 (17:08→21:18)
[2023-05-07 17:14] LABS: Lactic Sepsis W/Reflex 0.9 mmol/L (0.5-2.2)
[2023-05-07 17:24] LABS: INR 1.17 (0.8-1.2)
[2023-05-07 17:39] LABS: Partial Thromboplastin Time 23.9 SECONDS (23.9-36.7)
[2023-05-07] MEDS: sodium chloride 0.9% 1,000 ML 125 ML IV (17:43)
[2023-05-07] MEDS: metoclopramide 5 mg/mL SDV 2 mL 10 MG IVP (17:43)
--- NOTE | 2023-05-07 17:47 | P.CONIM_ITS ---
Providers/Reason For Consult 2 Consulting Physician/Specialty*: ER physician Reason for Consult*: post op lap choly with abd pain. Primary Care Provider: Conrad Amaya History of Present Illness History of Present Illness Stella Covarrubias is a 63 year old female who is status post laparoscopic cholecystectomy. The patient is approximately 10 days out from her procedure. The patient presents now with abdominal pain. I was asked to see this patient from a surgical standpoint. I reviewed the patient's CT scan. The patient has obvious fluid around her liver and in her pelvis. This was more than expected to be postoperative. You have to rule out the fact that this patient may have a bile leak. The patient needs HIDA scan. The patient probably needs to be transferred to somewhere who can probably perform an ERCP and common bile duct stenting. Please reconsult for questions or concerns. Medications/Allergies Home Medications Medication Instructions Recorded Confirmed Last Taken Type amlodipine 10 mg tablet 10 mg PO DAILY@14 03/05/23 05/07/23 05/07/23 History escitalopram oxalate 10 mg tablet 10 mg PO DAILY@14 mental health 03/05/23 05/07/23 05/07/23 History ondansetron HCl 4 mg tablet 4 mg PO Q8H PRN Nausea And Vomiting 03/05/23 05/07/23 03/05/23 History pantoprazole 40 mg tablet,delayed 40 mg PO DAILY@14 03/05/23 05/07/23 05/07/23 History release Allergies Allergy/AdvReac Type Severity Reaction Status Date / Time prochlorperazine Allergy Intermediate ADR-Irritab Verified 04/15/23 15:56 [From Compazine] le compazine Allergy makes her Uncoded 04/15/23 15:56 want to run PFSH Acute 2 PFSH: Medical History Renal mass Basal cell carcinoma (BCC) Chronic right shoulder pain Chronic neck pain Constipation Diverticulosis of colon Generalized anxiety disorder Cirrhosis of liver History of past hepatitis C that was treated, 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 Cervical radiculopathy Herniation of left side of L4-L5 intervertebral disc HTN (hypertension) Depression Degenerative disk disease 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, 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 Surgical History History of hysterectomy S/P TIPS (transjugular intrahepatic portosystemic shunt) History of neck surgery Family History Mother Heart problem Brother Heart problem Denies family history of Pancreatitis Social History Smoking and tobacco/nicotine status: current every day tobacco/nicotine user cigarettes [ Other cigarette details: 4-5 cigarettes per day] Second hand smoke exposure: Yes Alcohol intake: never Substance/Drug Use: never Vitals/I&O/Wt Last Vital Signs Temp 98.1 F 05/07/23 15:27 Pulse 70 05/07/23 15:27 Resp 16 05/07/23 17:08 BP 143/83 05/07/23 15:27 Pulse Ox 96 05/07/23 15:27 O2 Del Method Room Air 05/07/23 15:27 05/07/23 05/07/23 05/07/23 06:59 14:59 22:59 Intake Total 1000 / 1000 Balance 1000 / 1000 Weight last 48 hrs Weight 130 lb Data 05/07/23 16:12 05/07/23 16:12 Coding Level of Care Code Acute Code for Chg Fwd
[2023-05-07 17:56] LABS: Ammonia 30 umol/L (11-51)
[2023-05-07] MEDS: diphenhydrAMINE 50 mg/mL SDV 1mL 25 MG IVP (18:46)
--- NOTE | 2023-05-07 21:01 | DCPLANNER ---
Patient needing to be transferred for ERCP called : [facility] are unable to take patient at this time: [facility] has no available rooms: [facility] was willing to put them om a waiting list: [facility] had no rooms available: [facility] not able to accept. Nimisha REILLY doc going on vacation.
[2023-05-07] MEDS: ALPRAZolam 0.5 mg Tablet PO (22:40)
[2023-05-08] VITALS (7 sets, daily range): BP systolic 108–130; BP diastolic 59–78; PULSE 54–65; RESP 16–18; O2SAT 94–97
[2023-05-08] MEDS: morphine 4 mg/mL SDV 1 mL IVP ×3 (02:07→10:40)
[2023-05-08] MEDS: ondansetron 2 mg/ML SDV 2 mL 4 MG IVP ×2 (02:20→10:40)
[2023-05-08] MEDS: piperacillin-tazobactam 3.375 GM in sodium chloride 0.9% (plus) 50 ML IV (05:43)
--- NOTE | 2023-05-08 07:18 | DCPLANNER ---
[facility] called back stating the patient is no longer on waitlist since they do not have GI coverage until Thursday.
--- NOTE | 2023-05-08 07:22 | DCPLANNER ---
Spoke with [facility] in [place], [place] for an ERCP the casting house worker will call me back. 05/08/23 at [id number]
--- NOTE | 2023-05-08 07:26 | DCPLANNER ---
I called [facility] for transfer of ERCP. Called on 05/08/23 at 0726/ NO beds available
--- NOTE | 2023-05-08 07:31 | SUR.EXTENDED ---
[facility] [phone] 05/08/23 at 0734 no beds available, but will add to a waitlist.
[2023-05-08 07:40] LABS: Basophils # 0.1 10^3/uL (0.0-0.1); Basophils % 1.1 %; Eosinophils # 0.2 10^3/uL (0.0-0.8); Eosinophils % 4.4 %; Hematocrit 37.7 % (36-47); Lymphocytes # 1.5 10^3/uL (0.8-4.8); Lymphocytes % 32.4 %; Mean Corpuscular HGB Conc 31.8 g/dL (30-55); Mean Corpuscular Hemoglobin 27.6 pg (27-33); Mean Corpuscular Volume 86.9 fl (85-98); Mean Platelet Volume 10.9 fL (7.4-10.4); Monocytes # 0.4 10^3/uL (0.2-0.9); Monocytes % 7.8 %; Neutrophils # 2.44 10^3/uL (1.8-7.7); Neutrophils % 54.1 %; Nucleated Red Blood Cells % 0 %; Platelet Count 188 10^3/cmm (157-399); Red Blood Count 4.34 10^6/uL (3.85-5.65); Red Cell Distribution Width 13.1 % (12.1-15.1); White Blood Count 4.51 10^3/uL (3.29-11.43)
[2023-05-08 07:47] LABS: INR 1.25 (0.8-1.2)
[2023-05-08 07:48] LABS: Partial Thromboplastin Time 30.2 SECONDS (23.9-36.7)
[2023-05-08 07:55] LABS: Alanine Aminotransferase 11 U/L (0-33); Albumin Level 3.5 g/dL (3.5-5.2); Alkaline Phosphatase 51 U/L (35-105); Anion Gap 12.5 (5-19); Aspartate Amino Transferase 26 U/L (0-32); Blood Urea Nitrogen 6 mg/dL (8-23); Calcium 8.5 mg/dL (8.5-10.5); Carbon Dioxide 24 mmol/L (22-29); Chloride 110 mmol/L (98-107); Creatinine Clr Calc Pharmacy 101.2189; Globulin 2.5 g/dL (1.3-4.6); Glomerular Filtration Rate 124.2 mL/min (90-130); Glucose 74 mg/dL (65-115); Osmolality Calculated 292 mOsm/kg (285-295); Potassium 3.5 mmol/L (3.5-5.1); Sodium 143 mmol/L (136-145); Total Bilirubin 0.8 mg/dL (0.15-1.2)
--- NOTE | 2023-05-08 08:03 | DCPLANNER ---
I called [facility] at 0802 on 05/08 spoke with Evgeny and transferred the call to Dr. Trejo. When I was speaking with Evgeny he said that they do not have any beds available and we are calling very early.
--- NOTE | 2023-05-08 08:05 | DCPLANNER ---
Merari Chase to Dr. Trejo. Dr. Mohan told me that Dr. Lubin with [facility] will be accepting this patient 05/08 at 0805.
== END 2023-05-08 11:14 | disposition short-term general hospital (02) ==
PROVIDERS: Emergency Provider Family Medicine; PCP Family Medicine
DX: R10.11 Right upper quadrant pain (principal); K83.8 Other specified diseases of biliary tract; I10 Essential (primary) hypertension; Z86.19 Personal history of other infectious and parasitic diseases; F17.210 Nicotine dependence, cigarettes, uncomplicated; Z90.49 Acquired absence of other specified parts of digestive tract
CPT/HCPCS: 36415; 74176; 80053; 81003; 82140; 83605; 83690; 85025; 85610; 85730; 87040; 96374; 96375; 96376; 99285; J1200; J2270; J2405; J2543; J2765; J7030

== ENCOUNTER 2023-05-21 17:30 | Emergency (ER) | payer MEDICARE, MEDICAID, SELFPAY ==
[2023-05-21 17:31] VITALS: BP 157/86; PULSE 81; TEMP 37.6; O2SAT 99; BMI 23.1
--- NOTE | 2023-05-21 17:34 | W.ED.ABDPA2 ---
Documented by User: Onel Smith MD 05/27/23 04:22 HPI - Abdominal Pain General: Chief Complaint: Abdominal Pain Stated Complaint: Upper Abd Pain Time Seen by Provider: 05/21/23 17:34 History of Present Illness: 63-year-old female presents emergency department via EMS personnel secondary to increased abdominal/epigastric pain she states that started this morning. Patient was seen here in the emergency department on 04/24/2023 for abdominal pain and was found to have cholecystitis requiring admission and surgical intervention by Dr. Brooks. She was ultimately transferred to [facility] for an MRCP and states that she was also advised that she needed a liver transplant. 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 She states she also took 3 initial treatments then moved to [place] and was seen by browning processor there who ultimately told her that she was no longer infected and cured of hepatitis C. She states that she has not sought treatment after that for her hepatitis C. She states that after reviewing her medical records that she was seen by her primary care provider in 2020 who discussed with her the need for a liver transplant and at that time the patient does not appear to have been evaluated for a transplant or received any additional evaluation for potential transplant list placement. She states that she was discharged from [facility] on 05/10/2023 and forgot her pain medications at the pharmacy and she is here today for 8 out of 10 left upper and right upper quadrant abdominal pain. She states she also had nausea with for which she took 8 mg of Zofran this morning and states that her nausea initially improved but now has returned. Patient states that she has had several episodes of pancreatitis and feels like she has a flareup of her pancreas again. 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 Cervical radiculopathy Herniation of left side of L4-L5 intervertebral disc HTN (hypertension) Depression Degenerative disk disease 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, 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 Vital signs reviewed as documented. HENMT: Normocephalic, atraumatic. Extermal ears with normal appearance without drainage. Nose without drainage, normal appearance. Mucus membranes moist. Neck is supple, No jugular venous distension, trachea is midline, no appreciable carotid bruits. No lymphadenopathy. No meningeal signs. Flexion, extension and lateral rotation is without pain. Eyes: Pupils are equal, round, reactive to light and accommodation. No scleral icterus. Extra-ocular movement are intact. Thorax is symmetrical and with equal rise and fall with respirations. Resp: Lungs are clear to auscultation. No wheezes, rales, crackles or ronchi at present. Cardio: Regular rate and rhythm. Positive S1, S2. No appreciable murmurs, rubs or gallops. GI: Abdominal exam reveals normal bowel sounds to all quadrants. No organomegaly. No obvious palpable masses noted. No hepatomegally appreciated. Soft, tenderness to palpation to the left upper quadrant and right upper quadrant. Postsurgical incisions from her cholecystectomy on 04/24/2023 appear to be well-healed and without obvious signs of infection. Extremity: Extremities are non-edematous and both femoral and pedal pulses are 2+ and equal bilaterally. Moves all extremities well, sensation in all extremities. Neuro: Alert and oriented x4, person, place, time and situation. Cranial nerves II through XII are grossly intact, there is no focal neurological deficits that I can appreciate at present. Motor strength in the upper and lower extremities are equal and bilateral 5/5. Psych: Cooperative, calm, normal thought process, appropriate judgment. Skin: No lesions, rashes. No gross abnormalities noted. Back: Symmetrical, no obvious deformity, No CVA tenderness Course Vital Signs: Vital signs: Vital Signs Temperature 99.6 F 05/21/23 17:31 Pulse Rate 71 05/21/23 20:34 Respiratory Rate 18 05/21/23 20:34 Blood Pressure 140/91 05/21/23 20:34 Pulse Oximetry 99 05/21/23 20:34 Oxygen Delivery Me thod Room Air 05/21/23 19:06 MDM - Abdominal Pain Medical Decision Making Physical exam completed and documented, I will obtain CBC CMP lipase CT abdomen pelvis for additional evaluation given her recent abdominal surgery and her complaints of epigastric pain. I will provide her IV Zofran and at present have advised her that we will complete her evaluation before providing her pain medication given the concern that we may inadvertently mask any underlying problems if given pain medications at this time. At present we are currently pending laboratory and CT scan results I have discussed the patient's care and plan of care [facility]. Medical Records I reviewed the patient's medical records. Lab Data 05/21/23 17:10 05/21/23 17:10 Labs/Radiology: Radiology Impressions Abdomen/Pelvis CT 05/21/23 17:47 IMPRESSION: 1. Hepatic cirrhosis with small ascites, gastroesophageal varices and splenomegaly in keeping with portal hypertension. 2. indeterminate subcentimeter splenic hypodensity, too small to characterize. If there is no history of primary neoplasm, follow-up MRI of the abdomen in 6-12 months is recommended. If there is history of primary neoplasm, follow-up outpatient PET-CT or MRI is recommended. Laboratory Results WBC 6.60 10^3/uL (3.29-11.43) 05/21/23 17:10 RBC 5.04 10^6/uL (3.85-5.65) 05/21/23 17:10 Hgb 13.80 g/dL (11.27-16.99) 05/21/23 17:10 Hct 41.9 % (36-47) 05/21/23 17:10 MCV 83.1 fl (85-98) L 05/21/23 17:10 MCH 27.4 pg (27-33) 05/21/23 17:10 MCHC 32.9 g/dL (30-55) 05/21/23 17:10 RDW 13.6 % (12.1-15.1) 05/21/23 17:10 Plt Count 184 10^3/cmm (157-399) 05/21/23 17:10 MPV 12.8 fL (7.4-10.4) H 05/21/23 17:10 Neut % (Auto) 56.4 % 05/21/23 17:10 Lymph % (Auto) 30.2 % 05/21/23 17:10 [place] % (Auto) 8.2 % 05/21/23 17:10 Eos % (Auto) 4.2 % 05/21/23 17:10 Baso % (Auto) 0.8 % 05/21/23 17:10 Neut # (Auto) 3.73 10^3/uL (1.8-7.7) 05/21/23 17:10 Lymph # (Auto) 2.0 10^3/uL (0.8-4.8) 05/21/23 17:10 [place] # (Auto) 0.5 10^3/uL (0.2-0.9) 05/21/23 17:10 Eos # (Auto) 0.3 10^3/uL (0.0-0.8) 05/21/23 17:10 Baso # (Auto) 0.1 10^3/uL (0.0-0.1) 05/21/23 17:10 Nucleated RBC % (auto) 0 % 05/21/23 17:10 Nucleated RBCs # 0.0 /100WBC 05/21/23 17:10 Sodium 142 mmol/L (136-145) 05/21/23 17:10 Potassium 4.3 mmol/L (3.5-5.1) 05/21/23 17:10 Chloride 105 mmol/L (98-107) 05/21/23 17:10 Carbon Dioxide 24 mmol/L (22-29) 05/21/23 17:10 Anion Gap 17.3 (5-19) 05/21/23 17:10 BUN 7 mg/dL (8-23) L 05/21/23 17:10 Creatinine 0.5 mg/dL (0.5-0.9) 05/21/23 17:10 GFR Calculation 124.2 mL/min (90-130) 05/21/23 17:10 Glucose 88 mg/dL (65-115) 05/21/23 17:10 Calculated Osmolality 291 mOsm/kg (285-295) 05/21/23 17:10 Lactic Acid 2.3 mmol/L (0.5-2.2) H 05/21/23 17:10 Lactic Acid (Sepsis) 0.9 mmol/L (0.5-2.2) 05/21/23 20:06 Calcium 9.5 mg/dL (8.5-10.5) 05/21/23 17:10 Total Bilirubin 0.5 mg/dL (0.15-1.2) 05/21/23 17:10 AST 20 U/L (0-32) 05/21/23 17:10 ALT 11 U/L (0-33) 05/21/23 17:10 Alkaline Phosphatase 73 U/L (35-105) 05/21/23 17:10 Ammonia 36 umol/L (11-51) 05/21/23 18:30 Total Protein 7.7 g/dL (6.6-8.7) 05/21/23 17:10 Albumin 4.3 g/dL (3.5-5.2) 05/21/23 17:10 Globulin 3.4 g/dL (1.3-4.6) 05/21/23 17:10 Lipase 105 U/L (13-60) H 05/21/23 17:10 Procalcitonin 0.02 ng/mL (0-0.5) 05/21/23 17:10 Discharge Plan Discharge Patient Disposition: Home Clinical Impression: Cirrhosis of liver Qualifiers: Hepatic cirrhosis type: unspecified hepatic cirrhosis Ascites presence: with ascites Qualified Code(s): K74.60 - Unspecified cirrhosis of liver Abdominal pain Qualifiers: Abdominal location: unspecified location Qualified Code(s): R10.9 - Unspecified abdominal pain Condition: Stable Prescriptions: No Action ondansetron HCl 4 mg tablet 4 mg PO Q8H PRN (Reason: Nausea And Vomiting) amlodipine 10 mg tablet 10 mg PO DAILY@14 pantoprazole 40 mg tablet,delayed release (DR/EC) 40 mg PO DAILY@14 escitalopram oxalate 10 mg tablet 10 mg PO DAILY@14 Discharge Orders: Discharge ED (Routine); Ordered 05/21/23 Ordered By: Gilbert Yang Referrals: Conrad Amaya [Primary Care Provider] - 1 week Patient Instructions: Abdominal Pain (ED) Activity Restrictions/Additional Instructions: Your lab work and CT scan was nondiagnostic for any acute causes of your abdominal pain. Please follow-up with your family practice physician for further evaluation and testing. 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 Cervical radiculopathy Herniation of left side of L4-L5 intervertebral disc HTN (hypertension) Depression Degenerative disk disease 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, 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 Surgical History History of hysterectomy S/P TIPS (transjugular intrahepatic portosystemic shunt) History of neck surgery Family History Mother Heart problem Brother Heart problem Denies family history of Pancreatitis Social History Smoking and tobacco/nicotine status: current every day tobacco/nicotine user cigarettes [ Other cigarette details: 4-5 cigarettes per day] Second hand smoke exposure: Yes Alcohol intake: never Substance/Drug Use: never Course Vital Signs: Vital signs: Vital Signs Temperature 99.6 F 05/21/23 17:31 Pulse Rate 71 05/21/23 20:34 Respiratory Rate 18 05/21/23 20:34 Blood Pressure 140/91 05/21/23 20:34 Pulse Oximetry 99 05/21/23 20:34 Oxygen Delivery Me thod Room Air 05/21/23 19:06 MDM - Abdominal Pain Medical Decision Making Physical exam completed and documented, I will obtain CBC CMP lipase CT abdomen pelvis for additional evaluation given her recent abdominal surgery and her complaints of epigastric pain. I will provide her IV Zofran and at present have advised her that we will complete her evaluation before providing her pain medication given the concern that we may inadvertently mask any underlying problems if given pain medications at this time. At present we are currently pending laboratory and CT scan results I have discussed the patient's care and plan of care with Dr. Yang the oncoming ER physician. CT scan is essentially unremarkable for acute changes. Lab work unremarkable. Other than the lipase being 105. Patient be discharged home to follow-up with her family practice doctor on an as-needed basis. Lab Data 05/21/23 17:10 05/21/23 17:10 Labs/Radiology: Radiology Impressions Abdomen/Pelvis CT 05/21/23 17:47 IMPRESSION: 1. Hepatic cirrhosis with small ascites, gastroesophageal varices and splenomegaly in keeping with portal hypertension. 2. indeterminate subcentimeter splenic hypodensity, too small to characterize. If there is no history of primary neoplasm, follow-up MRI of the abdomen in 6-12 months is recommended. If there is history of primary neoplasm, follow-up outpatient PET-CT or MRI is recommended. Laboratory Results WBC 6.60 10^3/uL (3.29-11.43) 05/21/23 17:10 RBC 5.04 10^6/uL (3.85-5.65) 05/21/23 17:10 Hgb 13.80 g/dL (11.27-16.99) 05/21/23 17:10 Hct 41.9 % (36-47) 05/21/23 17:10 MCV 83.1 fl (85-98) L 05/21/23 17:10 MCH 27.4 pg (27-33) 05/21/23 17:10 MCHC 32.9 g/dL (30-55) 05/21/23 17:10 RDW 13.6 % (12.1-15.1) 05/21/23 17:10 Plt Count 184 10^3/cmm (157-399) 05/21/23 17:10 MPV 12.8 fL (7.4-10.4) H 05/21/23 17:10 Neut % (Auto) 56.4 % 05/21/23 17:10 Lymph % (Auto) 30.2 % 05/21/23 17:10 [place] % (Auto) 8.2 % 05/21/23 17:10 Eos % (Auto) 4.2 % 05/21/23 17:10 Baso % (Auto) 0.8 % 05/21/23 17:10 Neut # (Auto) 3.73 10^3/uL (1.8-7.7) 05/21/23 17:10 Lymph # (Auto) 2.0 10^3/uL (0.8-4.8) 05/21/23 17:10 [place] # (Auto) 0.5 10^3/uL (0.2-0.9) 05/21/23 17:10 Eos # (Auto) 0.3 10^3/uL (0.0-0.8) 05/21/23 17:10 Baso # (Auto) 0.1 10^3/uL (0.0-0.1) 05/21/23 17:10 Nucleated RBC % (auto) 0 % 05/21/23 17:10 Nucleated RBCs # 0.0 /100WBC 05/21/23 17:10 Sodium 142 mmol/L (136-145) 05/21/23 17:10 Potassium 4.3 mmol/L (3.5-5.1) 05/21/23 17:10 Chloride 105 mmol/L (98-107) 05/21/23 17:10 Carbon Dioxide 24 mmol/L (22-29) 05/21/23 17:10 Anion Gap 17.3 (5-19) 05/21/23 17:10 BUN 7 mg/dL (8-23) L 05/21/23 17:10 Creatinine 0.5 mg/dL (0.5-0.9) 05/21/23 17:10 GFR Calculation 124.2 mL/min (90-130) 05/21/23 17:10 Glucose 88 mg/dL (65-115) 05/21/23 17:10 Calculated Osmolality 291 mOsm/kg (285-295) 05/21/23 17:10 Lactic Acid 2.3 mmol/L (0.5-2.2) H 05/21/23 17:10 Lactic Acid (Sepsis) 0.9 mmol/L (0.5-2.2) 05/21/23 20:06 Calcium 9.5 mg/dL (8.5-10.5) 05/21/23 17:10 Total Bilirubin 0.5 mg/dL (0.15-1.2) 05/21/23 17:10 AST 20 U/L (0-32) 05/21/23 17:10 ALT 11 U/L (0-33) 05/21/23 17:10 Alkaline Phosphatase 73 U/L (35-105) 05/21/23 17:10 Ammonia 36 umol/L (11-51) 05/21/23 18:30 Total Protein 7.7 g/dL (6.6-8.7) 05/21/23 17:10 Albumin 4.3 g/dL (3.5-5.2) 05/21/23 17:10 Globulin 3.4 g/dL (1.3-4.6) 05/21/23 17:10 Lipase 105 U/L (13-60) H 05/21/23 17:10 Procalcitonin 0.02 ng/mL (0-0.5) 05/21/23 17:10 All radiology interpretation(s) finalized by discharge Discharge Plan Discharge Patient Disposition: Home Clinical Impression: Cirrhosis of liver Qualifiers: Hepatic cirrhosis type: unspecified hepatic cirrhosis Ascites presence: with ascites Qualified Code(s): K74.60 - Unspecified cirrhosis of liver Abdominal pain Qualifiers: Abdominal location: unspecified location Qualified Code(s): R10.9 - Unspecified abdominal pain Condition: Stable Prescriptions: No Action ondansetron HCl 4 mg tablet 4 mg PO Q8H PRN (Reason: Nausea And Vomiting) amlodipine 10 mg tablet 10 mg PO DAILY@14 pantoprazole 40 mg tablet,delayed release (DR/EC) 40 mg PO DAILY@14 escitalopram oxalate 10 mg tablet 10 mg PO DAILY@14 Discharge Orders: Discharge ED (Routine); Ordered 05/21/23 Ordered By: Gilbert Yang Referrals: Conrad Amaya [Primary Care Provider] - 1 week Patient Instructions: Abdominal Pain (ED) Activity Restrictions/Additional Instructions: Your lab work and CT scan was nondiagnostic for any acute causes of your abdominal pain. Please follow-up with your family practice physician for further evaluation and testing. Coding Level of Care Code ED Early Childhood Education Specialist for Nadia Poole
--- NOTE | 2023-05-21 17:47 | CTR_ITS ---
PROCEDURE INFORMATION: Exam: CT Abdomen And Pelvis With Contrast Exam date and time: 05/21/2023 7:15 PM Age: 63 years old Clinical indication: Abdominal pain; Generalized; Prior surgery; Surgery date: 6+ months; Surgery type: Hyst, vikki, appy, c sections, hernia TECHNIQUE: Imaging protocol: Computed tomography of the abdomen and pelvis with contrast. Radiation optimization: All CT scans at this facility use at least one of these dose optimization techniques: automated exposure control; mA and/or kV adjustment per patient size (includes targeted exams where dose is matched to clinical indication); or iterative reconstruction. Contrast material: OMNI 350; Contrast volume: 100 ml; Contrast route: INTRAVENOUS (IV); COMPARISON: CT abdomen pelvis wo con [id number] 05/07/2023 4:24 PM RADIATION DOSE METRICS: Total DLP (mGy-cm): 481 FINDINGS: Lungs: Subsegmental bibasilar atelectasis. Questionable focal fluid in the right major fissure. Diaphragm: No evidence of diaphragmatic defect. Liver: Hepatic cirrhosis. No gross evidence of hepatic lesion within limitations of a single phase exam. Consider follow-up outpatient liver ultrasound or multiphase CT. Gallbladder and bile ducts: Status post cholecystectomy. No evidence of intrahepatic or extrahepatic biliary dilatation. Pancreas: Unremarkable. Spleen: Borderline splenomegaly measuring approximately 13 cm in length. There is an indeterminate subcentimeter splenic hypodensity, too small to characterize (image 22 of the axial series 3). Adrenal glands: Unremarkable. Kidneys and ureters: Multiple simple appearing renal cysts bilaterally for which dedicated imaging follow-up is not required. Otherwise no renal parenchymal abnormality. No hydronephrosis or ureteral stone. Stomach and bowel: There are gastroesophageal varices and thickening of the distal esophagus. Diverticulosis without evidence of acute diverticulitis. No bowel obstruction, free air or pneumatosis. Appendix: The appendix is not visualized, however there are no findings to suggest appendicitis. Intraperitoneal space: Small ascites, predominantly perihepatic, perisplenic and pelvic. Vasculature: Moderate aortobiiliac atherosclerosis without aneurysmal dilatation or dissection. No evidence of IVC thrombus. Lymph nodes: Multiple prominent gastrohepatic and portacaval/rudy hepatic nodes, frequently reactive in the setting of cirrhosis. Otherwise no evidence of adenopathy. Urinary bladder: Unremarkable. Reproductive: Status post hysterectomy. Bones/joints: No evidence of acute fracture or aggressive osseous lesion. Soft tissues: No evidence of fluid collection, hematoma or mass-like lesion in the superficial soft tissues. CT/CT abdomen pelvis w con* [id number] IMPRESSION: 1. Hepatic cirrhosis with small ascites, gastroesophageal varices and splenomegaly in keeping with portal hypertension. 2. indeterminate subcentimeter splenic hypodensity, too small to characterize. If there is no history of primary neoplasm, follow-up MRI of the abdomen in 6-12 months is recommended. If there is history of primary neoplasm, follow-up outpatient PET-CT or MRI is recommended.
[2023-05-21] MEDS: ondansetron 2 mg/ML SDV 2 mL 8 MG IVP (17:57)
[2023-05-21 18:02] LABS: Basophils # 0.1 10^3/uL (0.0-0.1); Basophils % 0.8 %; Eosinophils # 0.3 10^3/uL (0.0-0.8); Eosinophils % 4.2 %; Hematocrit 41.9 % (36-47); Lymphocytes % 30.2 %; Mean Corpuscular HGB Conc 32.9 g/dL (30-55); Mean Corpuscular Hemoglobin 27.4 pg (27-33); Mean Corpuscular Volume 83.1 fl (85-98); Mean Platelet Volume 12.8 fL (7.4-10.4); Monocytes # 0.5 10^3/uL (0.2-0.9); Monocytes % 8.2 %; Neutrophils # 3.73 10^3/uL (1.8-7.7); Neutrophils % 56.4 %; Nucleated Red Blood Cells % 0 %; Platelet Count 184 10^3/cmm (157-399); Red Blood Count 5.04 10^6/uL (3.85-5.65); Red Cell Distribution Width 13.6 % (12.1-15.1)
[2023-05-21 18:31] VITALS: BP 145/99; PULSE 70; RESP 18; O2SAT 96
[2023-05-21 18:41] LABS: Procalcitonin 0.02 ng/mL (0-0.5)
[2023-05-21 18:45] LABS: Alanine Aminotransferase 11 U/L (0-33); Albumin Level 4.3 g/dL (3.5-5.2); Alkaline Phosphatase 73 U/L (35-105); Anion Gap 17.3 (5-19); Aspartate Amino Transferase 20 U/L (0-32); Blood Urea Nitrogen 7 mg/dL (8-23); Calcium 9.5 mg/dL (8.5-10.5); Carbon Dioxide 24 mmol/L (22-29); Chloride 105 mmol/L (98-107); Globulin 3.4 g/dL (1.3-4.6); Glomerular Filtration Rate 124.2 mL/min (90-130); Glucose 88 mg/dL (65-115); Lipase 105 U/L (13-60); Osmolality Calculated 291 mOsm/kg (285-295); Potassium 4.3 mmol/L (3.5-5.1); Sodium 142 mmol/L (136-145); Total Bilirubin 0.5 mg/dL (0.15-1.2); Total Protein 7.7 g/dL (6.6-8.7)
[2023-05-21 18:52] LABS: Lactic Sepsis W/Reflex 2.3 mmol/L (0.5-2.2)
[2023-05-21 19:06] VITALS: BP 136/98; RESP 18; O2SAT 96
[2023-05-21 19:16] LABS: Ammonia 36 umol/L (11-51)
[2023-05-21] MEDS: iohexol 350 mg/mL 500 mL Btl (per mL) IV (19:25)
[2023-05-21 19:45] LABS: Reflex Lactate Order REFLEX LACTIC ORDERD
[2023-05-21 20:34] VITALS: BP 140/91; PULSE 71; RESP 18; O2SAT 99
[2023-05-21 20:56] LABS: Lactic Acid level (Lactate) 0.9 mmol/L (0.5-2.2)
== END 2023-05-21 20:36 | disposition home or self-care (01) ==
PROVIDERS: Emergency Provider Internal Medicine; PCP Family Medicine
DX: K74.60 Unspecified cirrhosis of liver (principal); R10.10 Upper abdominal pain, unspecified; I10 Essential (primary) hypertension; Z86.19 Personal history of other infectious and parasitic diseases; F17.210 Nicotine dependence, cigarettes, uncomplicated
CPT/HCPCS: 36415; 74177; 80053; 82140; 83605; 83690; 84145; 85025; 96374; 99285; J2405; Q9967

== ENCOUNTER 2023-09-05 16:13 | Emergency (ER) | payer MEDICARE, MEDICAID, SELFPAY ==
[2023-09-05 16:14] VITALS: BP 163/87; PULSE 67; RESP 17; TEMP 36.8; O2SAT 100
--- NOTE | 2023-09-05 16:36 | CTR_ITS ---
PROCEDURE INFORMATION: Exam: CT Abdomen And Pelvis With Contrast Exam date and time: 09/05/2023 5:27 PM Age: 63 years old Clinical indication: Abdominal pain; Generalized; Prior surgery; Surgery date: 6+ months; Surgery type: Gb, hysto; Additional info: Abd pain TECHNIQUE: Imaging protocol: Computed tomography of the abdomen and pelvis with contrast. Sagittal and coronal reformatted images were created and reviewed. Radiation optimization: All CT scans at this facility use at least one of these dose optimization techniques: automated exposure control; mA and/or kV adjustment per patient size (includes targeted exams where dose is matched to clinical indication); or iterative reconstruction. Contrast material: OMNI 350; Contrast volume: 100 ml; Contrast route: INTRAVENOUS (IV); COMPARISON: CT abdomen pelvis w con* [id number] 05/21/2023 7:15 PM RADIATION DOSE METRICS: Total DLP (mGy-cm): 623.2 FINDINGS: Lungs: Visualized lungs are clear. Pleural spaces: No pleural effusion. Heart: Calcification of the mitral valve annulus. Visualized heart is normal in size. Liver: Stable nodular contour of the liver. Stable mild enlargement of the liver measuring 19.9 cm in length (series 7, image 55). Gallbladder and bile ducts: Stable findings consistent with a previous cholecystectomy. Dilatation of the biliary ducts, not unexpected in a patient who has had a prior cholecystectomy. Pancreas: The pancreas is unremarkable. No pancreatic ductal dilatation. Spleen: Stable mild enlargement of the spleen measuring 13.6 cm in length (series 7, image 13). Focal hypodensity in the spleen measuring 8.5 mm (series 4, image 29). This cannot be further characterized on the current examination. Adrenal glands: The right and left adrenal glands are unremarkable. Kidneys and ureters: 3 small cysts in the right kidney are stable, the largest measures 1.3 cm. The left kidney is unremarkable. The right and left ureters are unremarkable. Stomach and bowel: Scattered diverticula in the sigmoid colon. No evidence for diverticulitis. No acute abnormality in the small bowel. Appendix: Appendix not definitely visualized. No inflammatory changes in the pericecal region however. Intraperitoneal space: Stable small volume ascites. No free intraperitoneal air. No loculated fluid collections to suggest an abscess. Vasculature: Stable moderate atherosclerotic calcifications in the visualized arteries. No evidence for aortic aneurysm or aortic dissection. Hepatic veins, portal veins, splenic vein, and SMV are patent. Stable small caliber varices in the paraesophageal region, gastrohepatic ligament, and left abdomen. Lymph nodes: No lymphadenopathy. Urinary bladder: The bladder is unremarkable for the degree of distension. Reproductive: Stable changes consistent with a previous hysterectomy. The ovaries are not definitely visualized, not an expected in a postmenopausal female. This may be due to ovarian atrophy. Alternatively, the patient may have had a previous bilateral oophorectomy. Findings are stable. Bones/joints: Mild degenerative changes in the visualized spine. Soft tissues: No acute abnormality in the extra-abdominal soft tissues. CT/CT abdomen pelvis w con* [id number] IMPRESSION: 1. Stable cirrhotic changes in the liver with portal hypertension manifest by mild splenomegaly, small caliber varices, and small volume ascites. 2. Indeterminate hypodense focus in the spleen. 3. Scattered diverticula in the sigmoid colon. No evidence for diverticulitis. 4. Incidental/nonacute findings are listed in the report.
--- NOTE | 2023-09-05 16:44 | ED_ITS ---
Documented by User: Sher Trejo DO 09/05/23 18:09 HPI - Abdominal Pain 2 General: Chief Complaint: Abdominal Pain Stated Complaint: ABD PAIN Time Seen by Provider: 09/05/23 16:16 Source: patient Mode of arrival: EMS History of Present Illness: 63-year-old female presents to the emerg ency room with complaints of abdominal pain she tells me she is waiting on the liver transplant when I asked her where she is evaluated it turns out she has not actually been evaluated she was told that she would probably need a liver transplant she has a history hepatitis C although she did take oral treatment for it. She had several episodes of pancreatitis with hospitalization last year. She has worsening pain epigastric and bilateral upper quadrants today. She feels like she is having another pancreatitis attack. She denies use of alcohol. She is not sure what may have triggered it. MD elicited complaint: abdominal pain Pertinent past history: other (Hepatitis C, recurrent pancreatitis) Onset (ago): hour(s) Pain Consistency: constant Location: Epigastric, LUQ and RUQ Severity: moderate Quality: sharp Exacerbating factors: nothing Relieving factors: nothing Associated Symptoms: Reports bloating, GI cramping, nausea and poor appetite; Denies anorexia, belching, change in bowel habits, change in stool character, chills, coffee ground emesis, constipation, diarrhea, dyspepsia, dysuria, excessive flatus, fever(s), heartburn, hematochezia, hematuria, hematemesis, fecal incontinence, loose stools, melena, syncope and vomiting Review of Systems 2 Const: Denies: fever(s) or chills Card: Denies: syncope Resp: Denies: dyspnea GI: Reports: abdominal pain, nausea, bloating and GI cramping; Denies: vomiting, hematemesis, coffee ground emesis, heartburn, diarrhea, constipation, belching, excessive flatus, fecal incontinence, change in bowel habits, change in stool character, hematochezia or melena : Denies: dysuria or hematuria Musc: Denies: neck pain or back pain Skin/Breast: Denies: rash PFSH ED 2 PFSH: Medical History Renal mass Basal cell carcinoma (BCC) Chronic right shoulder pain Chronic neck pain Constipation Diverticulosis of colon Generalized anxiety disorder Cirrhosis of liver History of past hepatitis C that was treated, 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 Cervical radiculopathy Herniation of left side of L4-L5 intervertebral disc HTN (hypertension) Depression Degenerative disk disease 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, 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 Surgical History History of hysterectomy S/P TIPS (transjugular intrahepatic portosystemic shunt) History of neck surgery Family History Mother Heart problem Brother Heart problem Denies family history of Pancreatitis Social History Smoking and tobacco/nicotine status: current every day tobacco/nicotine user cigarettes [ Other cigarette details: 4-5 cigarettes per day] Second hand smoke exposure: Yes Alcohol intake: never Substance/Drug Use: never Physical Exam 2 Const: GENERAL APPEARANCE: cooperative and comfortable O RIENTATION/CONSCIOUSNESS: Yes awake, Yes oriented to person, Yes oriented to place and Yes oriented to time HENMT: COMMON NORMALS: normocephalic, atraumatic and hearing grossly normal bilaterally HEAD & SCALP: normocephalic and atraumatic Resp: COMMON NORMALS: normal respiratory effort, No retractions, No use of accessory muscles and clear to auscultation bilaterally AUSCULTATION: clear to auscultation bilaterally Cardio: COMMON NORMALS: regular rate, regular rhythm and No murmurs present (Cardio) RATE: regular rate RHYTHM: regular rhythm GI: INSPECTION: Yes abdominal distension and Yes Fluid wave present P ALPATION: Yes Tenderness to palpation present (GI) Details: LUQ and RUQ and No Guarding due to palpation present (GI) PERCUSSION: Fluid wave present : COMMON NORMALS: Yes no CVA tenderness BLADDER/KIDNEY EXAM: Yes no CVA tenderness Back/Pelvis: COMMON NORMALS: no CVA tenderness Extremity: COMMON NORMALS: normal to inspection, capillary refill normal, no clubbing, cyanosis or edema, no calf tenderness and no pedal edema Neuro: SENSORIUM/ORIENTATION: Yes oriented to person, Yes oriented to place and Yes oriented to time Skin: COMMON NORMALS: no rashes or lesions noted GENERAL SKIN EXAM: no rashes or lesions noted Course 2 Vital Signs: Vital signs: Vital Signs Temperature 98.2 F 09/05/23 16:14 Pulse Rate 62 09/05/23 19:59 Respiratory Rate 18 09/05/23 19:59 Blood Pressure 163/87 09/05/23 16:14 Pulse Oximetry 98 09/05/23 19:59 Oxygen Delivery Me thod Room Air 09/05/23 19:59 MDM - Abdominal Pain Medical Decision Making Care signed out to Dr. Yang at change of shift. See final notes for diagnosis and disposition. Lab Data 09/05/23 16:43 09/05/23 16:43 Labs/Radiology: Radiology Impressions Abdomen/Pelvis CT 09/05/23 16:36 IMPRESSION: 1. Stable cirrhotic changes in the liver with portal hypertension manifest by mild splenomegaly, small caliber varices, and small volume ascites. 2. Indeterminate hypodense focus in the spleen. 3. Scattered diverticula in the sigmoid colon. No evidence for diverticulitis. 4. Incidental/nonacute findings are listed in the report. Laboratory Results WBC 4.93 10^3/uL (3.29-11.43) 09/05/23 16:43 RBC 4.67 10^6/uL (3.85-5.65) 09/05/23 16:43 Hgb 12.70 g/dL (11.27-16.99) 09/05/23 16:43 Hct 38.2 % (36-47) 09/05/23 16:43 MCV 81.8 fl (85-98) L 09/05/23 16:43 MCH 27.2 pg (27-33) 09/05/23 16:43 MCHC 33.2 g/dL (30-55) 09/05/23 16:43 RDW 13.7 % (12.1-15.1) 09/05/23 16:43 Plt Count 172 10^3/cmm (157-399) 09/05/23 16:43 MPV 12.1 fL (7.4-10.4) H 09/05/23 16:43 Neut % (Auto) 58.0 % 09/05/23 16:43 Lymph % (Auto) 30.4 % 09/05/23 16:43 [place] % (Auto) 6.7 % 09/05/23 16:43 Eos % (Auto) 3.7 % 09/05/23 16:43 Baso % (Auto) 1.0 % 09/05/23 16:43 Neut # (Auto) 2.86 10^3/uL (1.8-7.7) 09/05/23 16:43 Lymph # (Auto) 1.5 10^3/uL (0.8-4.8) 09/05/23 16:43 [place] # (Auto) 0.3 10^3/uL (0.2-0.9) 09/05/23 16:43 Eos # (Auto) 0.2 10^3/uL (0.0-0.8) 09/05/23 16:43 Baso # (Auto) 0.1 10^3/uL (0.0-0.1) 09/05/23 16:43 Nucleated RBC % (auto) 0 % 09/05/23 16:43 Nucleated RBCs # 0.0 /100WBC 09/05/23 16:43 PT 14.60 SECONDS (12.1-14.9) 09/05/23 16:43 INR 1.11 (0.8-1.2) 09/05/23 16:43 APTT 27.8 SECONDS (23.9-36.7) 09/05/23 16:43 Sodium 141 mmol/L (136-145) 09/05/23 16:43 Potassium 4.3 mmol/L (3.5-5.1) 09/05/23 16:43 Chloride 109 mmol/L (98-107) H 09/05/23 16:43 Carbon Dioxide 24 mmol/L (22-29) 09/05/23 16:43 Anion Gap 12.3 (5-19) 09/05/23 16:43 BUN 8 mg/dL (8-23) 09/05/23 16:43 Creatinine 0.6 mg/dL (0.5-0.9) 09/05/23 16:43 GFR Calculation 100.6 mL/min (90-130) 09/05/23 16:43 Glucose 112 mg/dL (65-115) 09/05/23 16:43 Calculated Osmolality 291 mOsm/kg (285-295) 09/05/23 16:43 Calcium 9.4 mg/dL (8.5-10.5) 09/05/23 16:43 Total Bilirubin 0.4 mg/dL (0.15-1.2) 09/05/23 16:43 AST 20 U/L (0-32) 09/05/23 16:43 ALT 15 U/L (0-33) 09/05/23 16:43 Alkaline Phosphatase 72 U/L (35-105) 09/05/23 16:43 Ammonia 40 umol/L (11-51) 09/05/23 16:43 Total Protein 7.6 g/dL (6.6-8.7) 09/05/23 16:43 Albumin 4.3 g/dL (3.5-5.2) 09/05/23 16:43 Globulin 3.3 g/dL (1.3-4.6) 09/05/23 16:43 Triglycerides 62 mg/dL (0-150) 09/05/23 16:43 Lipase 82 U/L (13-60) H 09/05/23 16:43 Urine Color Yellow (Yellow) 09/05/23 16:57 Urine Appearance Clear (CLEAR) 09/05/23 16:57 Urine pH 6 (5-7) 09/05/23 16:57 Ur Specific [place] 1.010 (1.005-1.030) 09/05/23 16:57 Urine Protein Neg (Negative) 09/05/23 16:57 Urine Glucose (UA) Norm (Normal) 09/05/23 16:57 Urine Ketones Negative (Negative) 09/05/23 16:57 Urine Blood Neg (Negative) 09/05/23 16:57 Urine Nitrate Negative (Negative) 09/05/23 16:57 Urine Bilirubin Neg (Negative) 09/05/23 16:57 Urine Urobilinogen Norm mg/dL (Negative) 09/05/23 16:57 Ur Leukocyte Esterase Negative (Negative) 09/05/23 16:57 XR interpretation done by ED provider, pending radiology final review Discharge Plan Discharge Patient Disposition: Home Clinical Impression: Abdominal pain Qualifiers: Abdominal location: right upper quadrant Qualified Code(s): R10.11 - Right upper quadrant pain Nausea & vomiting Qualifiers: Vomiting type: unspecified Qualified Code(s): R11.2 - Nausea with vomiting, unspecified Condition: Stable Prescriptions: New hydrocodone-acetaminophen 5-325 mg tablet 1 tab PO Q6H PRN (Reason: pain) Qty: 14 0RF No Action ondansetron HCl 4 mg tablet 4 mg PO Q8H PRN (Reason: Nausea And Vomiting) amlodipine 10 mg tablet 10 mg PO DAILY@14 pantoprazole 40 mg tablet,delayed release (DR/EC) 40 mg PO DAILY@14 escitalopram oxalate 10 mg tablet 10 mg PO DAILY@14 Discharge Orders: Discharge ED (Routine); Ordered 09/05/23 Ordered By: Gilbert Yang Referrals: Conrad Amaya [Primary Care Provider] - 1 week Patient Instructions: Acute Nausea and Vomiting (DC), Abdominal Pain (ED) Activity Restrictions/Additional Instructions: Your lab work and CT of the abdomen pelvis was stable and unremarkable for acute pancreatitis. Please continue clear liquids until tolerating and then advance as tolerated. Please continue take your Zofran as needed for nausea. Please follow-up with your family practice physician within next 7 days for further evaluation and treatment as needed. 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 Cervical radiculopathy Herniation of left side of L4-L5 intervertebral disc HTN (hypertension) Depression Degenerative disk disease 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, 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 Surgical History History of hysterectomy S/P TIPS (transjugular intrahepatic portosystemic shunt) History of neck surgery Family History Mother Heart problem Brother Heart problem Denies family history of Pancreatitis Social History Smoking and tobacco/nicotine status: current every day tobacco/nicotine user cigarettes [ Other cigarette details: 4-5 cigarettes per day] Second hand smoke exposure: Yes Alcohol intake: never Substance/Drug Use: never Course 2 Vital Signs: Vital signs: Vital Signs Temperature 98.2 F 09/05/23 16:14 Pulse Rate 62 09/05/23 19:59 Respiratory Rate 18 09/05/23 19:59 Blood Pressure 163/87 09/05/23 16:14 Pulse Oximetry 98 09/05/23 19:59 Oxygen Delivery Me thod Room Air 09/05/23 19:59 MDM - Abdominal Pain Medical Decision Making Care signed out to Dr. Yang at change of shift. See final notes for diagnosis and disposition. Lab work and imaging reviewed, lipase is very mildly elevated at 82 otherwise lab work was unremarkable, abdomen pelvis CT scan was unremarkable for pancreatitis discharged chronic stable changes. Patient says she still in pain and having nausea. Patient be given more Zofran and morphine. Patient then patient will be discharged home to follow-up with her PCP on an as-needed basis. Lab Data 09/05/23 16:43 09/05/23 16:43 Labs/Radiology: Radiology Impressions Abdomen/Pelvis CT 09/05/23 16:36 IMPRESSION: 1. Stable cirrhotic changes in the liver with portal hypertension manifest by mild splenomegaly, small caliber varices, and small volume ascites. 2. Indeterminate hypodense focus in the spleen. 3. Scattered diverticula in the sigmoid colon. No evidence for diverticulitis. 4. Incidental/nonacute findings are listed in the report. Laboratory Results WBC 4.93 10^3/uL (3.29-11.43) 09/05/23 16:43 RBC 4.67 10^6/uL (3.85-5.65) 09/05/23 16:43 Hgb 12.70 g/dL (11.27-16.99) 09/05/23 16:43 Hct 38.2 % (36-47) 09/05/23 16:43 MCV 81.8 fl (85-98) L 09/05/23 16:43 MCH 27.2 pg (27-33) 09/05/23 16:43 MCHC 33.2 g/dL (30-55) 09/05/23 16:43 RDW 13.7 % (12.1-15.1) 09/05/23 16:43 Plt Count 172 10^3/cmm (157-399) 09/05/23 16:43 MPV 12.1 fL (7.4-10.4) H 09/05/23 16:43 Neut % (Auto) 58.0 % 09/05/23 16:43 Lymph % (Auto) 30.4 % 09/05/23 16:43 [place] % (Auto) 6.7 % 09/05/23 16:43 Eos % (Auto) 3.7 % 09/05/23 16:43 Baso % (Auto) 1.0 % 09/05/23 16:43 Neut # (Auto) 2.86 10^3/uL (1.8-7.7) 09/05/23 16:43 Lymph # (Auto) 1.5 10^3/uL (0.8-4.8) 09/05/23 16:43 [place] # (Auto) 0.3 10^3/uL (0.2-0.9) 09/05/23 16:43 Eos # (Auto) 0.2 10^3/uL (0.0-0.8) 09/05/23 16:43 Baso # (Auto) 0.1 10^3/uL (0.0-0.1) 09/05/23 16:43 Nucleated RBC % (auto) 0 % 09/05/23 16:43 Nucleated RBCs # 0.0 /100WBC 09/05/23 16:43 PT 14.60 SECONDS (12.1-14.9) 09/05/23 16:43 INR 1.11 (0.8-1.2) 09/05/23 16:43 APTT 27.8 SECONDS (23.9-36.7) 09/05/23 16:43 Sodium 141 mmol/L (136-145) 09/05/23 16:43 Potassium 4.3 mmol/L (3.5-5.1) 09/05/23 16:43 Chloride 109 mmol/L (98-107) H 09/05/23 16:43 Carbon Dioxide 24 mmol/L (22-29) 09/05/23 16:43 Anion Gap 12.3 (5-19) 09/05/23 16:43 BUN 8 mg/dL (8-23) 09/05/23 16:43 Creatinine 0.6 mg/dL (0.5-0.9) 09/05/23 16:43 GFR Calculation 100.6 mL/min (90-130) 09/05/23 16:43 Glucose 112 mg/dL (65-115) 09/05/23 16:43 Calculated Osmolality 291 mOsm/kg (285-295) 09/05/23 16:43 Calcium 9.4 mg/dL (8.5-10.5) 09/05/23 16:43 Total Bilirubin 0.4 mg/dL (0.15-1.2) 09/05/23 16:43 AST 20 U/L (0-32) 09/05/23 16:43 ALT 15 U/L (0-33) 09/05/23 16:43 Alkaline Phosphatase 72 U/L (35-105) 09/05/23 16:43 Ammonia 40 umol/L (11-51) 09/05/23 16:43 Total Protein 7.6 g/dL (6.6-8.7) 09/05/23 16:43 Albumin 4.3 g/dL (3.5-5.2) 09/05/23 16:43 Globulin 3.3 g/dL (1.3-4.6) 09/05/23 16:43 Triglycerides 62 mg/dL (0-150) 09/05/23 16:43 Lipase 82 U/L (13-60) H 09/05/23 16:43 Urine Color Yellow (Yellow) 09/05/23 16:57 Urine Appearance Clear (CLEAR) 09/05/23 16:57 Urine pH 6 (5-7) 09/05/23 16:57 Ur Specific [place] 1.010 (1.005-1.030) 09/05/23 16:57 Urine Protein Neg (Negative) 04/20/24 16:57 Urine Glucose (UA) Norm (Normal) 09/05/23 16:57 Urine Ketones Negative (Negative) 09/05/23 16:57 Urine Blood Neg (Negative) 09/05/23 16:57 Urine Nitrate Negative (Negative) 09/05/23 16:57 Urine Bilirubin Neg (Negative) 09/05/23 16:57 Urine Urobilinogen Norm mg/dL (Negative) 09/05/23 16:57 Ur Leukocyte Esterase Negative (Negative) 09/05/23 16:57 Discharge Plan Discharge Patient Disposition: Home Clinical Impression: Abdominal pain Qualifiers: Abdominal location: right upper quadrant Qualified Code(s): R10.11 - Right upper quadrant pain Nausea & vomiting Qualifiers: Vomiting type: unspecified Qualified Code(s): R11.2 - Nausea with vomiting, unspecified Condition: Stable Prescriptions: New hydrocodone-acetaminophen 5-325 mg tablet 1 tab PO Q6H PRN (Reason: pain) Qty: 14 0RF No Action ondansetron HCl 4 mg tablet 4 mg PO Q8H PRN (Reason: Nausea And Vomiting) amlodipine 10 mg tablet 10 mg PO DAILY@14 pantoprazole 40 mg tablet,delayed release (DR/EC) 40 mg PO DAILY@14 escitalopram oxalate 10 mg tablet 10 mg PO DAILY@14 Discharge Orders: Discharge ED (Routine); Ordered 09/05/23 Ordered By: Gilbert Yang Referrals: Conrad Amaya [Primary Care Provider] - 1 week Patient Instructions: Acute Nausea and Vomiting (DC), Abdominal Pain (ED) Activity Restrictions/Additional Instructions: Your lab work and CT of the abdomen pelvis was stable and unremarkable for acute pancreatitis. Please continue clear liquids until tolerating and then advance as tolerated. Please continue take your Zofran as needed for nausea. Please follow-up with your family practice physician within next 7 days for further evaluation and treatment as needed. Coding Level of Care Code ED Ship Carpenter for Nadia Poole
[2023-09-05 16:49] LABS: Basophils # 0.1 10^3/uL (0.0-0.1); Eosinophils # 0.2 10^3/uL (0.0-0.8); Eosinophils % 3.7 %; Hematocrit 38.2 % (36-47); Lymphocytes # 1.5 10^3/uL (0.8-4.8); Lymphocytes % 30.4 %; Mean Corpuscular HGB Conc 33.2 g/dL (30-55); Mean Corpuscular Hemoglobin 27.2 pg (27-33); Mean Corpuscular Volume 81.8 fl (85-98); Mean Platelet Volume 12.1 fL (7.4-10.4); Monocytes # 0.3 10^3/uL (0.2-0.9); Monocytes % 6.7 %; Neutrophils # 2.86 10^3/uL (1.8-7.7); Nucleated Red Blood Cells % 0 %; Platelet Count 172 10^3/cmm (157-399); Red Blood Count 4.67 10^6/uL (3.85-5.65); Red Cell Distribution Width 13.7 % (12.1-15.1); White Blood Count 4.93 10^3/uL (3.29-11.43)
[2023-09-05 17:04] LABS: INR 1.11 (0.8-1.2); Partial Thromboplastin Time 27.8 SECONDS (23.9-36.7)
[2023-09-05 17:04] LABS: Add Urine Microscopic? NO
[2023-09-05 17:06] LABS: Charge for UA Resulting for Rev
[2023-09-05 17:07] LABS: Ammonia 40 umol/L (11-51)
[2023-09-05 17:07] LABS: Bilirubin Urine Neg (Negative); Blood Urine Neg (Negative); Glucose Urine UA Norm (Normal); Ketones Urine Negative (Negative); Nitrate Urine Negative (Negative); Protein Urine Neg (Negative); Urine Appearance Clear (CLEAR); Urine Color Yellow (Yellow); pH Urine 6 (5-7)
[2023-09-05 17:08] LABS: Leukocyte Esterase Urine Negative (Negative); Urobilinogen Urine Norm (Negative)
[2023-09-05 17:12] LABS: Alanine Aminotransferase 15 U/L (0-33); Albumin Level 4.3 g/dL (3.5-5.2); Alkaline Phosphatase 72 U/L (35-105); Anion Gap 12.3 (5-19); Aspartate Amino Transferase 20 U/L (0-32); Blood Urea Nitrogen 8 mg/dL (8-23); Calcium 9.4 mg/dL (8.5-10.5); Carbon Dioxide 24 mmol/L (22-29); Chloride 109 mmol/L (98-107); Creatinine Clr Calc Pharmacy 87.0623; Globulin 3.3 g/dL (1.3-4.6); Glomerular Filtration Rate 100.6 mL/min (90-130); Glucose 112 mg/dL (65-115); Lipase 82 U/L (13-60); Osmolality Calculated 291 mOsm/kg (285-295); Potassium 4.3 mmol/L (3.5-5.1); Sodium 141 mmol/L (136-145); Total Bilirubin 0.4 mg/dL (0.15-1.2); Total Protein 7.6 g/dL (6.6-8.7); Triglycerides 62 mg/dL (0-150)
[2023-09-05] MEDS: iohexol 350 mg/mL 500 mL Btl (per mL) IV (17:29)
[2023-09-05 18:01] VITALS: RESP 17; O2SAT 97
[2023-09-05] MEDS: morphine 4 mg/mL SDV 1 mL 2 MG IVP (18:01)
[2023-09-05 18:02] VITALS: PULSE 72; RESP 17; O2SAT 97
[2023-09-05] MEDS: ondansetron 2 mg/ML SDV 2 mL 4 MG IVP (19:56)
[2023-09-05 19:59] VITALS: PULSE 62; RESP 18; O2SAT 98
[2023-09-05] MEDS: morphine 4 mg/mL SDV 1 mL IVP (19:59)
--- NOTE | 2023-09-05 20:16 | PC.NURSE ---
Pt sent home with 2tabs on [place] per Dr Yang orders.
[2023-09-05 20:32] VITALS: BP 140/78; PULSE 62; RESP 18; O2SAT 98
== END 2023-09-05 20:18 | disposition home or self-care (01) ==
PROVIDERS: Emergency Provider Family Medicine; PCP Family Medicine
DX: R10.11 Right upper quadrant pain (principal); R11.2 Nausea with vomiting, unspecified; I10 Essential (primary) hypertension; Z86.19 Personal history of other infectious and parasitic diseases; F17.210 Nicotine dependence, cigarettes, uncomplicated
CPT/HCPCS: 74177; 80053; 81003; 82140; 83690; 84478; 85025; 85610; 85730; 96374; 96375; 96376; 99285; J2270; J2405; Q9967

== ENCOUNTER 2023-11-16 14:08 | Emergency (ER) | payer MEDICARE, MEDICAID, SELFPAY ==
[2023-11-16 14:12] VITALS: BP 132/87; PULSE 71; RESP 18; TEMP 36.5; O2SAT 94; BMI 24.9
--- NOTE | 2023-11-16 14:17 | ED_ITS ---
HPI - Abdominal Pain 2 General: Chief Complaint: Abdominal Pain Stated Complaint: abd pain Time Seen by Provider: 11/16/23 14:14 Source: patient Mode of arrival: EMS Limitations: no limitations History of Present Illness: Patient is a 63-year-old female with a history of recurrent pancreatitis, liver cirrhosis status post hepatitis C treatment, TIPS procedure here for complaints of upper abdominal pain x 2-3 days along with nausea and nonbloody/nonbilious emesis. She states her symptoms feel similar to previous episodes of pancreatitis. Has not been running fevers. Bowel movements have been normal. Looking at previous documentation one point she was told she was a liver transplant candidate however she states she followed up with her primary care provider and because her LFTs were normal he told her she did not need to be referred to a liver transplant specialist so has not had any further evaluation regarding this. MD elicited complaint: abdominal pain Pertinent past history: other (pancreatitis) Onset (ago): day(s) Pain Consistency: constant Location: Epigastric and RUQ Severity: severe Quality: sharp Radiation: none Migration to: no migration Relieving factors: nothing Associated Symptoms: Reports nausea and vomiting; Denies chills, constipation, diarrhea, dysuria, fever(s), hematochezia, hematemesis and melena Related Data: Patient : No Review of Systems 2 Const: Denies: fever(s), chills, body aches, fatigue or malaise Card: Denies: chest pain Resp: Denies: dyspnea GI: Reports: abdominal pain, nausea and vomiting; Denies: hematemesis, diarrhea, constipation, hematochezia or melena : Denies: flank pain, difficulty voiding, dysuria, urinary frequency, urinary urgency or urinary hesitancy Musc: Denies: neck pain, back pain, extremity pain or joint pain Skin/Breast: Denies: rash Neuro: Denies: headache(s), numbness in extremities, weakness in extremities or sensory changes PFSH ED 2 PFSH: Medical History Renal mass Basal cell carcinoma (BCC) Chronic right shoulder pain Chronic neck pain Constipation Diverticulosis of colon Generalized anxiety disorder Cirrhosis of liver History of past hepatitis C that was treated, 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 Cervical radiculopathy Herniation of left side of L4-L5 intervertebral disc HTN (hypertension) Depression Degenerative disk disease 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, 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 Surgical History History of hysterectomy S/P TIPS (transjugular intrahepatic portosystemic shunt) History of neck surgery Family History Mother Heart problem Brother Heart problem Denies family history of Pancreatitis Social History Smoking and tobacco/nicotine status: current every day tobacco/nicotine user cigarettes [ Other cigarette details: 4-5 cigarettes per day] Second hand smoke exposure: Yes Alcohol intake: never Substance/Drug Use: never Physical Exam 2 Const: COMMON NORMALS: no acute distress, patient oriented x3, no limitations, alert and well nourished GENERAL APPEARANCE: cooperative O RIENTATION/CONSCIOUSNESS: Yes awake, Yes oriented to person, Yes oriented to place and Yes oriented to time Eye: COMMON NORMALS: no scleral icterus Chest: COMMONS NORMALS: normal inspection of the chest and normal palpation of entire chest wall Resp: COMMON NORMALS: normal respiratory effort and clear to auscultation bilaterally AUSCULTATION: clear to auscultation bilaterally Cardio: COMMON NORMALS: regular rate and regular rhythm RATE: regular rate RHYTHM: regular rhythm GI: COMMON NORMALS: Normal to inspection, nondistended, normoactive bowel sounds present, Soft to palpation, No hepatosplenomegaly present and no masses INSPECTION: Yes normal to inspection AUSCULTATION: Yes normoactive bowel sounds PALPATION: Yes Soft to palpation, Yes Tenderness to palpation present (GI) (upper abdomen/RUQ), Yes Guarding due to palpation present (GI), No Rigid due to palpation and Yes No hepatosplenomegaly present : COMMON NORMALS: Yes no CVA tenderness BLADDER/KIDNEY EXAM: Yes no CVA tenderness Back/Pelvis: COMMON NORMALS: no CVA tenderness and thoracic and lumbar spine normal to inspection Extremity: GENERAL: Yes normal exam except as noted Neuro: PEE COMA SCALE: document GCS findings [place] coma scale eye opening: Spontaneous [place] coma scale verbal response: Orientated Pee coma scale motor response: Obey commands Pee coma scale total score: 15 COMMON NORMALS: patient oriented x3, moves all extremities, no focal motor deficits and no sensory deficits noted SENSORIUM/ORIENTATION: Yes alert, Yes oriented to person, Yes oriented to place and Yes oriented to time Skin: COMMON NORMALS: no rashes or lesions noted GENERAL SKIN EXAM: no rashes or lesions noted Course 2 Vital Signs: Vital signs: Vital Signs Temperature 97.7 F 11/16/23 14:12 Pulse Rate 72 11/16/23 15:45 Respiratory Rate 16 11/16/23 15:49 Blood Pressure 150/85 11/16/23 15:45 Pulse Oximetry 96 11/16/23 15:49 Oxygen Delivery Me thod Room Air 11/16/23 15:45 MDM - Abdominal Pain Medical Decision Making Patient here for upper abdominal pain. She states it feels like previous pancreatitis flares. Blood work overall is nonactionable. Her lipase is 35. CT scan showing a normal appearance of her pancreas. He does have chronic hepatic cirrhosis with a small amount of ascites and gastroesophageal varices. These are unchanged when compared to previous scans. Patient's nausea and pain improved with medications here. She has antiemetics at home we will give her a small amount of pain medications that she can use and I recommend she follow-up with her primary care provider later this week. Return to ED precautions given. Medical Records I reviewed the patient's medical records. Lab Data I reviewed the patient's lab results. 11/16/23 14:26 11/16/23 14:26 Labs/Radiology: Radiology Impressions Abdomen/Pelvis CT 11/16/23 14:22 IMPRESSION: 1. Hepatic cirrhosis with small ascites. 2. Gastroesophageal varices. Laboratory Results WBC 4.06 10^3/uL (3.29-11.43) 11/16/23 14:26 RBC 4.95 10^6/uL (3.85-5.65) 11/16/23 14:26 Hgb 13.40 g/dL (11.27-16.99) 11/16/23 14:26 Hct 41.8 % (36-47) 11/16/23 14:26 MCV 84.4 fl (85-98) L 11/16/23 14:26 MCH 27.1 pg (27-33) 11/16/23 14: MCHC 32.1 g/dL (30-55) 11/16/23 14:26 RDW 13.4 % (12.1-15.1) 11/16/23 14:26 Plt Count 140 10^3/cmm (157-399) L 11/16/23 14:26 MPV 11.7 fL (7.4-10.4) H 11/16/23 14:26 Neut % (Auto) 53.1 % 11/16/23 14:26 Lymph % (Auto) 31.8 % 11/16/23 14:26 [place] % (Auto) 10.3 % 11/16/23 14:26 Eos % (Auto) 3.9 % 11/16/23 14:26 Baso % (Auto) 0.7 % 11/16/23 14:26 Neut # (Auto) 2.15 10^3/uL (1.8-7.7) 11/16/23 14:26 Lymph # (Auto) 1.3 10^3/uL (0.8-4.8) 11/16/23 14:26 [place] # (Auto) 0.4 10^3/uL (0.2-0.9) 11/16/23 14:26 Eos # (Auto) 0.2 10^3/uL (0.0-0.8) 11/16/23 14:26 Baso # (Auto) 0.0 10^3/uL (0.0-0.1) 11/16/23 14:26 Nucleated RBC % (auto) 0 % 11/16/23 14: Nucleated RBCs # 0.0 /100WBC 11/16/23 14:26 Sodium 140 mmol/L (136-145) 11/16/23 14:26 Potassium 4.3 mmol/L (3.5-5.1) 11/16/23 14:26 Chloride 107 mmol/L (98-107) 11/16/23 14:26 Carbon Dioxide 25 mmol/L (22-29) 11/16/23 14:26 Anion Gap 12.3 (5-19) 11/16/23 14:26 BUN 9 mg/dL (8-23) 11/16/23 14:26 Creatinine 0.6 mg/dL (0.5-0.9) 11/16/23 14:26 GFR Calculation 100.6 mL/min (90-130) 11/16/23 14:26 Glucose 94 mg/dL (65-115) 11/16/23 14:26 Calculated Osmolality 288 mOsm/kg (285-295) 11/16/23 14:26 Calcium 9.6 mg/dL (8.5-10.5) 11/16/23 14:26 Total Bilirubin 0.6 mg/dL (0.15-1.2) 11/16/23 14:26 AST 22 U/L (0-32) 11/16/23 14:26 ALT 16 U/L (0-33) 11/16/23 14:26 Alkaline Phosphatase 63 U/L (35-105) 11/16/23 14:26 Total Protein 7.4 g/dL (6.6-8.7) 11/16/23 14:26 Albumin 4.3 g/dL (3.5-5.2) 11/16/23 14:26 Globulin 3.1 g/dL (1.3-4.6) 11/16/23 14:26 Lipase 35 U/L (13-60) 11/16/23 14:26 Urine Color Yellow (Yellow) 11/16/23 15:42 Urine Appearance Clear (CLEAR) 11/16/23 15:42 Urine pH 6 (5-7) 11/16/23 15:42 Ur Specific [place] 1.005 (1.005-1.030) 11/16/23 15:42 Urine Protein Neg (Negative) 11/16/23 15:42 Urine Glucose (UA) Norm (Normal) 11/16/23 15:42 Urine Ketones Negative (Negative) 11/16/23 15:42 Urine Blood Neg (Negative) 11/16/23 15:42 Urine Nitrate Negative (Negative) 11/16/23 15:42 Urine Bilirubin Neg (Negative) 11/16/23 15:42 Urine Urobilinogen Norm mg/dL (Negative) 11/16/23 15:42 Ur Leukocyte Esterase Negative (Negative) 11/16/23 15:42 All radiology interpretation(s) finalized by discharge Discharge Plan Discharge Patient Disposition: Home Clinical Impression: Acute upper abdominal pain Cirrhosis of liver Qualifiers: Hepatic cirrhosis type: unspecified hepatic cirrhosis Ascites presence: with ascites Qualified Code(s): K74.60 - Unspecified cirrhosis of liver Condition: Stable Prescriptions: Continued hydrocodone-acetaminophen 5-325 mg tablet 1 tab PO Q6H PRN (Reason: pain) Qty: 14 0RF No Action ondansetron HCl 4 mg tablet 4 mg PO Q8H PRN (Reason: Nausea And Vomiting) amlodipine 10 mg tablet 10 mg PO DAILY@14 pantoprazole 40 mg tablet,delayed release (DR/EC) 40 mg PO DAILY@14 escitalopram oxalate 10 mg tablet 10 mg PO DAILY@14 Discharge Orders: Discharge ED (Routine); Ordered 11/16/23 Ordered By: Sandie Ross Referrals: Conrad mAaya [Primary Care Provider] - Patient Instructions: Abdominal Pain (ED), Opioid Safety, Pain Management Activity Restrictions/Additional Instructions: As we discussed I would like you to follow-up with your primary care provider later this week for reevaluation/assessment. You need to return to the emergency department for worsening abdominal pain, repetitive episodes of vomiting, any bloody vomit, fevers, generally feeling worse or unwell, or any other concerns you may have. Coding Level of Care Code ED E Commerce Marketing Analyst for Nadia Poole
--- NOTE | 2023-11-16 14:22 | CTR_ITS ---
PROCEDURE INFORMATION: Exam: CT Abdomen And Pelvis With Contrast Exam date and time: 11/16/2023 3:23 PM Age: 63 years old Clinical indication: Abdominal pain; Prior surgery; Surgery date: 6+ months; Surgery type: Gb/hyst; Patient HX: Abd pain and bloating; Additional info: Abdominal pain, n/v, HX pancreatitis TECHNIQUE: Imaging protocol: Computed tomography of the abdomen and pelvis with contrast. Radiation optimization: All CT scans at this facility use at least one of these dose optimization techniques: automated exposure control; mA and/or kV adjustment per patient size (includes targeted exams where dose is matched to clinical indication); or iterative reconstruction. Contrast material: OMNI 350; Contrast volume: 100 ml; Contrast route: INTRAVENOUS (IV); COMPARISON: CT abdomen pelvis w con* [id number] 09/05/2023 5:27 PM RADIATION DOSE METRICS: Total DLP (mGy-cm): 688.27 FINDINGS: Lungs: Subsegmental bibasilar atelectasis. The visualized lung bases are otherwise grossly clear. Diaphragm: No evidence of diaphragmatic defect. Liver: Hepatic cirrhosis with small ascites and gastroesophageal varices. Gallbladder and biliary ducts: Status post cholecystectomy. No evidence of intrahepatic or extrahepatic biliary dilatation. Pancreas: Unremarkable. Spleen: Indeterminate subcentimeter splenic hypodensity, possibly a complex cyst or hemangioma. Spleen measures at the upper limit of normal for size, approximately 12.5 cm. Otherwise grossly unremarkable. Adrenal glands: Unremarkable. Kidneys and ureters: There are simple appearing renal cysts for which dedicated imaging follow-up is not required. Otherwise no evidence of renal parenchymal abnormality. No hydronephrosis or ureteral stone. Stomach and bowel: Few scattered colonic diverticula without evidence of acute diverticulitis. No evidence of bowel obstruction or perienteric inflammatory changes. Appendix: The appendix is not visualized, however there are no findings to suggest appendicitis. Intraperitoneal space: Small ascites, predominantly perihepatic and pelvic. No evidence of free air or fluid collection. Vasculature: Moderate aortobiiliac atherosclerosis without aneurysmal dilatation or dissection. The celiac trunk, SMA and YOANA are grossly patent. No evidence of IVC thrombus. The portal vein, SMV and splenic veins are grossly patent. Lymph nodes: There are few prominent and mildly enlarged gastrohepatic, rudy hepatic and portacaval nodes, frequently reactive in the setting of cirrhosis. Urinary bladder: Grossly unremarkable. Reproductive: Prior hysterectomy. Bones/joints: No evidence of acute fracture or aggressive osseous lesion. Soft tissues: No evidence of fluid collection or hematoma in the superficial soft tissues. CT/CT abdomen pelvis w con* [id number] IMPRESSION: 1. Hepatic cirrhosis with small ascites. 2. Gastroesophageal varices.
[2023-11-16 14:36] LABS: Basophils % 0.7 %; Eosinophils # 0.2 10^3/uL (0.0-0.8); Eosinophils % 3.9 %; Hematocrit 41.8 % (36-47); Lymphocytes # 1.3 10^3/uL (0.8-4.8); Lymphocytes % 31.8 %; Mean Corpuscular HGB Conc 32.1 g/dL (30-55); Mean Corpuscular Hemoglobin 27.1 pg (27-33); Mean Corpuscular Volume 84.4 fl (85-98); Mean Platelet Volume 11.7 fL (7.4-10.4); Monocytes # 0.4 10^3/uL (0.2-0.9); Monocytes % 10.3 %; Neutrophils # 2.15 10^3/uL (1.8-7.7); Neutrophils % 53.1 %; Nucleated Red Blood Cells % 0 %; Platelet Count 140 10^3/cmm (157-399); Red Blood Count 4.95 10^6/uL (3.85-5.65); Red Cell Distribution Width 13.4 % (12.1-15.1); White Blood Count 4.06 10^3/uL (3.29-11.43)
[2023-11-16] MEDS: sodium chloride 0.9% 1,000 ML 999 ML IV (14:43)
[2023-11-16] MEDS: ondansetron 2 mg/ML SDV 2 mL 4 MG IVP (14:44)
[2023-11-16 14:46] VITALS: RESP 17; O2SAT 95
[2023-11-16] MEDS: morphine 4 mg/mL SDV 1 mL IVP (14:46)
[2023-11-16 14:49] VITALS: BP 141/84; PULSE 75; RESP 17; O2SAT 96
[2023-11-16 14:59] LABS: Alanine Aminotransferase 16 U/L (0-33); Albumin Level 4.3 g/dL (3.5-5.2); Alkaline Phosphatase 63 U/L (35-105); Anion Gap 12.3 (5-19); Aspartate Amino Transferase 22 U/L (0-32); Blood Urea Nitrogen 9 mg/dL (8-23); Calcium 9.6 mg/dL (8.5-10.5); Carbon Dioxide 25 mmol/L (22-29); Chloride 107 mmol/L (98-107); Creatinine Clr Calc Pharmacy 88.4189; Globulin 3.1 g/dL (1.3-4.6); Glomerular Filtration Rate 100.6 mL/min (90-130); Glucose 94 mg/dL (65-115); Lipase 35 U/L (13-60); Osmolality Calculated 288 mOsm/kg (285-295); Potassium 4.3 mmol/L (3.5-5.1); Sodium 140 mmol/L (136-145); Total Bilirubin 0.6 mg/dL (0.15-1.2); Total Protein 7.4 g/dL (6.6-8.7)
[2023-11-16] MEDS: iohexol 350 mg/mL 500 mL Btl (per mL) IV (15:25)
[2023-11-16 15:45] VITALS: BP 150/85; PULSE 72; RESP 16; O2SAT 96
[2023-11-16 15:48] LABS: Add Urine Microscopic? NO; Charge for UA Resulting for Rev
[2023-11-16 15:49] VITALS: RESP 16; O2SAT 96
[2023-11-16] MEDS: HYDROmorphone 1 mg/mL INJ 1 mL IVP (15:49)
[2023-11-16 15:57] LABS: Urine Appearance Clear (CLEAR); Urine Color Yellow (Yellow)
[2023-11-16 15:58] LABS: Bilirubin Urine Neg (Negative); Blood Urine Neg (Negative); Glucose Urine UA Norm (Normal); Ketones Urine Negative (Negative); Leukocyte Esterase Urine Negative (Negative); Nitrate Urine Negative (Negative); Protein Urine Neg (Negative); Specific Gravity, Urine 1.005 (1.005-1.030); Urobilinogen Urine Norm (Negative); pH Urine 6 (5-7)
[2023-11-16 16:17] VITALS: PULSE 84; RESP 16; O2SAT 95
== END 2023-11-16 16:19 | disposition home or self-care (01) ==
PROVIDERS: Emergency Provider Physician Assistant; PCP Family Medicine
DX: R10.11 Right upper quadrant pain (principal); K74.60 Unspecified cirrhosis of liver; I10 Essential (primary) hypertension; Z86.19 Personal history of other infectious and parasitic diseases; F17.210 Nicotine dependence, cigarettes, uncomplicated
CPT/HCPCS: 36415; 74177; 80053; 81003; 83690; 85025; 96361; 96374; 96375; 99285; J1170; J2270; J2405; J7030; Q9967

== ENCOUNTER 2023-12-07 12:27 | Emergency (ER) | payer MEDICARE, MEDICAID, SELFPAY ==
[2023-12-07] VITALS (7 sets, daily range): BP systolic 132–143; BP diastolic 66–86; PULSE 64; RESP 17–18; TEMP 36.8; O2SAT 93–97; BMI 24.0
--- NOTE | 2023-12-07 12:42 | ED_ITS ---
HPI - Abdominal Pain 2 General: Chief Complaint: Abdominal Pain Stated Complaint: ABD PAIN Time Seen by Provider: 12/07/23 12:34 Source: patient Mode of arrival: ambulatory Limitations: no limitations History of Present Illness: 63-year-old female who has a history of cirrhosis pancreatitis and chronic abdominal pain she states she has been having increased abdominal pain over the last 4 to 5 days with nausea. She denies any fevers. She denies any worsening improving factors. Associated Symptoms: Reports nausea; Denies chills, diarrhea, fever(s) and vomiting Review of Systems 2 Const: Denies: fever(s), chills, body aches or change in appetite ENMT: Denies: throat pain or dental pain Card: Denies: chest pain Resp: Denies: dyspnea GI: Reports: abdominal pain and nausea; Denies: vomiting or diarrhea Musc: Denies: neck pain or back pain Skin/Breast: Denies: rash Neuro: Denies: headache(s) PFSH ED 2 PFSH: Medical History Renal mass Basal cell carcinoma (BCC) Chronic right shoulder pain Chronic neck pain Constipation Diverticulosis of colon Generalized anxiety disorder Cirrhosis of liver History of past hepatitis C that was treated, 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 Cervical radiculopathy Herniation of left side of L4-L5 intervertebral disc HTN (hypertension) Depression Degenerative disk disease 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, 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 Surgical History History of hysterectomy S/P TIPS (transjugular intrahepatic portosystemic shunt) History of neck surgery Family History Mother Heart problem Brother Heart problem Denies family history of Pancreatitis Social History Smoking and tobacco/nicotine status: current every day tobacco/nicotine user cigarettes [ Other cigarette details: 4-5 cigarettes per day] Second hand smoke exposure: Yes Alcohol intake: never Substance/Drug Use: never Physical Exam 2 Const: COMMON NORMALS: no acute distress, patient oriented x3 and healthy appearing HENMT: COMMON NORMALS: normocephalic and atraumatic HEAD & SCALP: n ormocephalic and atraumatic Eye: COMMON NORMALS: Equal, round and reactive pupils present and EOMs intact bilaterally PUPIL: Yes Equal, round and reactive pupils present Neck/C-Spine: COMMON NORMALS: full ROM Chest: COMMONS NORMALS: normal inspection of the chest Resp: COMMON NORMALS: normal respiratory effort Cardio: COMMON NORMALS: regular rate, regular rhythm and No murmurs present (Cardio) RATE: regular rate RHYTHM: regular rhythm GI: COMMON NORMALS: Normal to inspection, nondistended, normoactive bowel sounds present, Soft to palpation and no masses PALPATION: Yes Soft to palpation OTHER: diffuse tenderness Extremity: COMMON NORMALS: normal to inspection and full ROM Neuro: COMMON NORMALS: patient oriented x3, moves all extremities and no focal motor deficits Psych: COMMON NORMALS: mental status grossly normal, Normal thought process present and cooperative THOUGHT PROCESS: Normal thought process present Skin: COMMON NORMALS: no rashes or lesions noted and no wounds GENERAL SKIN EXAM: no rashes or lesions noted Course 2 Vital Signs: Vital signs: Vital Signs Temperature 98.3 F 12/07/23 12:30 Pulse Rate 64 12/07/23 12:30 Respiratory Rate 17 12/07/23 15:08 Blood Pressure 143/66 12/07/23 14:35 Pulse Oximetry 96 12/07/23 15:08 Oxygen Delivery Me thod Room Air 12/07/23 12:30 MDM - Abdominal Pain Medical Decision Making Patient presents with abdominal pain that is chronic in nature from her cirrhosis Medical Records I reviewed the patient's medical records. Lab Data I reviewed the patient's lab results. 12/07/23 12:53 12/07/23 12:53 Labs/Radiology: Laboratory Results WBC 4.52 10^3/uL (3.29-11.43) 12/07/23 12:53 RBC 4.72 10^6/uL (3.85-5.65) 12/07/23 12:53 Hgb 12.70 g/dL (11.27-16.99) 12/07/23 12:53 Hct 39.6 % (36-47) 12/07/23 12:53 MCV 83.9 fl (85-98) L 12/07/23 12:53 MCH 26.9 pg (27-33) L 12/07/23 12:53 MCHC 32.1 g/dL (30-55) 12/07/23 12:53 RDW 13.6 % (12.1-15.1) 12/07/23 12:53 Plt Count 153 10^3/cmm (157-399) L 12/07/23 12:53 MPV 12.1 fL (7.4-10.4) H 12/07/23 12:53 Neut % (Auto) 55.3 % 12/07/23 12:53 Lymph % (Auto) 32.1 % 12/07/23 12:53 [place] % (Auto) 7.7 % 12/07/23 12:53 Eos % (Auto) 4.0 % 12/07/23 12:53 Baso % (Auto) 0.7 % 12/07/23 12:53 Neut # (Auto) 2.50 10^3/uL (1.8-7.7) 12/07/23 12:53 Lymph # (Auto) 1.5 10^3/uL (0.8-4.8) 12/07/23 12:53 [place] # (Auto) 0.4 10^3/uL (0.2-0.9) 12/07/23 12:53 Eos # (Auto) 0.2 10^3/uL (0.0-0.8) 12/07/23 12:53 Baso # (Auto) 0.0 10^3/uL (0.0-0.1) 12/07/23 12:53 Nucleated RBC % (auto) 0 % 12/07/23 12:53 Nucleated RBCs # 0.0 /100WBC 12/07/23 12:53 Sodium 140 mmol/L (136-145) 12/07/23 12:53 Potassium 4.4 mmol/L (3.5-5.1) 12/07/23 12:53 Chloride 106 mmol/L (98-107) 12/07/23 12:53 Carbon Dioxide 22 mmol/L (22-29) 12/07/23 12:53 Anion Gap 16.4 (5-19) 12/07/23 12:53 BUN 6 mg/dL (8-23) L 12/07/23 12:53 Creatinine 0.5 mg/dL (0.5-0.9) 12/07/23 12:53 GFR Calculation 124.2 mL/min (90-130) 12/07/23 12:53 Glucose 84 mg/dL (65-115) 12/07/23 12:53 Calculated Osmolality 287 mOsm/kg (285-295) 12/07/23 12:53 Calcium 9.1 mg/dL (8.5-10.5) 12/07/23 12:53 Total Bilirubin 0.5 mg/dL (0.15-1.2) 12/07/23 12:53 AST 25 U/L (0-32) 12/07/23 12:53 ALT 17 U/L (0-33) 12/07/23 12:53 Alkaline Phosphatase 66 U/L (35-105) 12/07/23 12:53 Total Protein 7.4 g/dL (6.6-8.7) 12/07/23 12:53 Albumin 4.1 g/dL (3.5-5.2) 12/07/23 12:53 Globulin 3.3 g/dL (1.3-4.6) 12/07/23 12:53 Lipase 62 U/L (13-60) H 12/07/23 12:53 Urine Color Yellow (Yellow) 12/07/23 14:43 Urine Appearance Slightly cloudy (CLEAR) 12/07/23 14:43 Urine pH 8 (5-7) H 12/07/23 14:43 Ur Specific [place] 1.015 (1.005-1.030) 12/07/23 14:43 Urine Protein Neg (Negative) 12/07/23 14:43 Urine Glucose (UA) Norm (Normal) 12/07/23 14:43 Urine Ketones Negative (Negative) 12/07/23 14:43 Urine Blood Neg (Negative) 12/07/23 14:43 Urine Nitrate Negative (Negative) 12/07/23 14:43 Urine Bilirubin Neg (Negative) 12/07/23 14:43 Urine Urobilinogen Norm mg/dL (Negative) 12/07/23 14:43 Ur Leukocyte Esterase Negative (Negative) 12/07/23 14:43 Urine RBC 0-4 /hpf (0-2) H 12/07/23 14:43 Urine WBC 0-4 /hpf (0-5) H 12/07/23 14:43 Ur Squamous Epith Cells 0-4 /hpf (0-5) H 12/07/23 14:43 Amorphous Sediment Not Reportable 12/07/23 14:43 Urine Bacteria Trace /hpf (NONE) 12/07/23 14:43 No radiology studies performed this visit Discharge Plan Discharge Patient Disposition: Home Clinical Impression: Abdominal pain Cirrhosis of liver Qualifiers: Hepatic cirrhosis type: unspecified hepatic cirrhosis Ascites presence: with ascites Qualified Code(s): K74.60 - Unspecified cirrhosis of liver Condition: Stable Prescriptions: New ondansetron 4 mg tablet,disintegrating 4 mg PO Q6H PRN (Reason: nausea and vomiting) Qty: 14 0RF hydrocodone-acetaminophen 7.5-325 mg tablet 1 tab PO Q8H PRN (Reason: pain) Qty: 14 0RF No Action ondansetron HCl 4 mg tablet 4 mg PO Q8H PRN (Reason: Nausea And Vomiting) amlodipine 10 mg tablet 10 mg PO QPM pantoprazole 40 mg tablet,delayed release (DR/EC) 40 mg PO QPM hydrocodone-acetaminophen 5-325 mg tablet 1 tab PO Q6H PRN (Reason: pain) Qty: 14 0RF escitalopram oxalate 20 mg tablet 20 mg PO QPM Discharge Orders: Discharge ED (Routine); Ordered 12/07/23 Ordered By: Warner Mahajan Referrals: Conrad Amaya [Primary Care Provider] - 4-7 days Discharge Diet: Advance as tolerated Discharge Activity: Resume usual activity Patient Instructions: Abdominal Pain (ED), Opioid Safety Coding Level of Care Code ED Compressor Station Engineer Chief for Nadia Poole
[2023-12-07] MEDS: morphine 4 mg/mL SDV 1 mL IVP (12:59)
[2023-12-07] MEDS: ondansetron 2 mg/ML SDV 2 mL 4 MG IVP (13:00)
[2023-12-07 13:15] LABS: Basophils % 0.7 %; Eosinophils # 0.2 10^3/uL (0.0-0.8); Hematocrit 39.6 % (36-47); Lymphocytes # 1.5 10^3/uL (0.8-4.8); Lymphocytes % 32.1 %; Mean Corpuscular HGB Conc 32.1 g/dL (30-55); Mean Corpuscular Hemoglobin 26.9 pg (27-33); Mean Corpuscular Volume 83.9 fl (85-98); Mean Platelet Volume 12.1 fL (7.4-10.4); Monocytes # 0.4 10^3/uL (0.2-0.9); Monocytes % 7.7 %; Neutrophils % 55.3 %; Nucleated Red Blood Cells % 0 %; Platelet Count 153 10^3/cmm (157-399); Red Blood Count 4.72 10^6/uL (3.85-5.65); Red Cell Distribution Width 13.6 % (12.1-15.1); White Blood Count 4.52 10^3/uL (3.29-11.43)
[2023-12-07 13:23] LABS: Alanine Aminotransferase 17 U/L (0-33); Albumin Level 4.1 g/dL (3.5-5.2); Alkaline Phosphatase 66 U/L (35-105); Aspartate Amino Transferase 25 U/L (0-32); Blood Urea Nitrogen 6 mg/dL (8-23); Calcium 9.1 mg/dL (8.5-10.5); Carbon Dioxide 22 mmol/L (22-29); Chloride 106 mmol/L (98-107); Creatinine Clr Calc Pharmacy 104.4747; Globulin 3.3 g/dL (1.3-4.6); Glomerular Filtration Rate 124.2 mL/min (90-130); Glucose 84 mg/dL (65-115); Lipase 62 U/L (13-60); Osmolality Calculated 287 mOsm/kg (285-295); Sodium 140 mmol/L (136-145); Total Bilirubin 0.5 mg/dL (0.15-1.2); Total Protein 7.4 g/dL (6.6-8.7)
[2023-12-07 13:25] LABS: Anion Gap 16.4 (5-19); Potassium 4.4 mmol/L (3.5-5.1)
[2023-12-07] MEDS: HYDROmorphone 1 mg/mL INJ 1 mL IVP (15:08)
[2023-12-07 15:10] LABS: Bilirubin Urine Neg (Negative); Blood Urine Neg (Negative); Glucose Urine UA Norm (Normal); Ketones Urine Negative (Negative); Nitrate Urine Negative (Negative); Protein Urine Neg (Negative); Specific Gravity, Urine 1.015 (1.005-1.030); Urine Appearance Slightly Cloudy (CLEAR); Urine Color Yellow (Yellow); pH Urine 8 (5-7)
[2023-12-07 15:11] LABS: Add Urine Culture? No; Add Urine Microscopic? YES; Bacteria Urine TRACE /hpf; Leukocyte Esterase Urine Negative (Negative); RBC Urine 0-4 /hpf (0-2); Squamous Epithelial Cell Urine 0-4 /hpf (0-5); Urobilinogen Urine Norm (Negative); WBC Urine 0-4 /hpf (0-5)
== END 2023-12-07 15:38 | disposition home or self-care (01) ==
PROVIDERS: Emergency Provider Emergency Medicine; PCP Family Medicine
DX: K74.60 Unspecified cirrhosis of liver (principal); R10.9 Unspecified abdominal pain; I10 Essential (primary) hypertension; Z86.19 Personal history of other infectious and parasitic diseases; F17.210 Nicotine dependence, cigarettes, uncomplicated
CPT/HCPCS: 36415; 80053; 81001; 83690; 85025; 96374; 96375; 99284; J1170; J2270; J2405

== ENCOUNTER 2023-12-31 17:01 | Emergency (ER) | payer MEDICARE, MEDICAID, SELFPAY ==
[2023-12-31 17:12] VITALS: BP 149/72; PULSE 71; RESP 18; TEMP 36.8; O2SAT 99
--- NOTE | 2023-12-31 17:13 | ED_ITS ---
HPI - Abdominal Pain 2 General: Chief Complaint: Abdominal Pain Stated Complaint: abd pain Time Seen by Provider: 12/31/23 17:13 History of Present Illness: 63-year-old female comes in today for co mplaints of increased abdominal pain. Patient has a history of cirrhosis, pancreatitis, and recurrent chronic abdominal pain. Patient appears nontoxic. Patient reports pain starting for last 2 to 3 days. Patient reports no fever or nausea or vomiting. Associated Symptoms: Reports nausea Related Data Home Medications Medication Instructions Recorded Confirmed amlodipine 10 mg tablet 10 mg PO QPM 03/05/23 12/07/23 ondansetron HCl 4 mg tablet 4 mg PO Q8H PRN Nausea And Vomiting 03/05/23 12/07/23 pantoprazole 40 mg tablet,delayed 40 mg PO QPM 03/05/23 12/07/23 release escitalopram oxalate 20 mg tablet 20 mg PO QPM 12/07/23 12/07/23 Previous Rx's Medication Instructions Recorded hydrocodone 5 mg-acetaminophen 325 1 tab PO Q6H PRN pain #14 tabs 11/16/23 mg tablet hydrocodone 7.5 mg-acetaminophen 1 tab PO Q8H PRN pain #14 tabs 12/07/23 325 mg tablet ondansetron 4 mg disintegrating 4 mg PO Q6H PRN nausea and 12/07/23 tablet vomiting #14 tabs Allergies Allergy/AdvReac Type Severity Reaction Status Date / Time prochlorperazine Allergy Intermediate ADR-Irritab Verified 09/05/23 16:18 [From Compazine] le compazine Allergy makes her Uncoded 09/05/23 16:18 want to run Review of Systems 2 General: Reports: 10 or more systems reviewed and unremarkable except in HPI and below GI: Reports: abdominal pain and nausea PFS ED 2 PFSH: Medical History Renal mass Basal cell carcinoma (BCC) Chronic right shoulder pain Chronic neck pain Constipation Diverticulosis of colon Generalized anxiety disorder Cirrhosis of liver History of past hepatitis C that was treated, 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 Cervical radiculopathy Herniation of left side of L4-L5 intervertebral disc HTN (hypertension) Depression Degenerative disk disease 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, 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 Surgical History History of hysterectomy S/P TIPS (transjugular intrahepatic portosystemic shunt) History of neck surgery Family History Mother Heart problem Brother Heart problem Denies family history of Pancreatitis Social History Smoking and tobacco/nicotine status: current every day tobacco/nicotine user cigarettes [ Other cigarette details: 4-5 cigarettes per day] Second hand smoke exposure: Yes Alcohol intake: never Substance/Drug Use: never Physical Exam 2 Const: COMMON NORMALS: alert HENMT: COMMON NORMALS: normocephalic HEAD & SCALP: normocephalic Neck/C-Spine: COMMON NORMALS: full ROM Resp: COMMON NORMALS: normal respiratory effort Cardio: COMMON NORMALS: regular rate and regular rhythm RATE: regular rate RHYTHM: regular rhythm GI: COMMON NORMALS: Soft to palpation and non-tender AUSCULTATION: Yes normoactive bowel sounds PALPATION: Yes Soft to palpation Back/Pelvis: COMMON NORMALS: thoracic and lumbar spine normal to inspection Extremity: COMMON NORMALS: full ROM Neuro: SENSORIUM/ORIENTATION: Yes alert Skin: COMMON NORMALS: turgor normal GENERAL SKIN EXAM: turgor normal Course 2 Vital Signs: Vital signs: Vital Signs Temperature 98.2 F 12/31/23 17:12 Pulse Rate 68 12/31/23 17:45 Respiratory Rate 16 12/31/23 17:45 Blood Pressure 142/74 12/31/23 17:45 Pulse Oximetry 97 12/31/23 17:45 Oxygen Delivery Me thod Room Air 12/31/23 17:12 MDM - Abdominal Pain Medical Decision Making 63-year-old female comes in today with increased abdominal discomfort. Patient does have a chronic history of abdominal pain due to cirrhosis and chronic pancreatitis. Patient's abdomen is soft with no distention noted. Bowel sounds are decreased. Vital signs are normal. Differential diagnosis includes but not limited to pancreatitis, dehydration, chronic abdominal pain, malingering. Laboratory values were unremarkable. Believe this is most likely a chronic pain regarding her cirrhosis and her pancreatitis. This time does not seem to be any acute illness. Recommended patient follow-up with primary care for further management of her abdominal pain. Lab Data 12/31/23 18:24 12/31/23 18:24 Labs/Radiology: Laboratory Results WBC 4.83 10^3/uL (3.29-11.43) 12/31/23 18:24 RBC 4.55 10^6/uL (3.85-5.65) 12/31/23 18:24 Hgb 12.80 g/dL (11.27-16.99) 12/31/23 18: Hct 38.9 % (36-47) 12/31/23 18:24 MCV 85.5 fl (85-98) 12/31/23 18: MCH 28.1 pg (27-33) 12/31/23 18: MCHC 32.9 g/dL (30-55) 12/31/23 18: RDW 13.8 % (12.1-15.1) 12/31/23 18: Plt Count 137 10^3/cmm (157-399) L 12/31/23 18: MPV 12.1 fL (7.4-10.4) H 12/31/23 18: Neut % (Auto) 58.6 % 12/31/23 18: Lymph % (Auto) 27.3 % 12/31/23 18: [place] % (Auto) 8.3 % 12/31/23 18: Eos % (Auto) 5.0 % 12/31/23 18: Baso % (Auto) 0.6 % 12/31/23 18: Neut # (Auto) 2.83 10^3/uL (1.8-7.7) 12/31/23 18: Lymph # (Auto) 1.3 10^3/uL (0.8-4.8) 12/31/23 18: [place] # (Auto) 0.4 10^3/uL (0.2-0.9) 12/31/23 18: Eos # (Auto) 0.2 10^3/uL (0.0-0.8) 12/31/23 18:24 Baso # (Auto) 0.0 10^3/uL (0.0-0.1) 12/31/23 18: Nucleated RBC % (auto) 0 % 12/31/23 18:24 Nucleated RBCs # 0.0 /100WBC 12/31/23 18:24 Sodium 141 mmol/L (136-145) 12/31/23 18:24 Potassium 3.9 mmol/L (3.5-5.1) 12/31/23 18:24 Chloride 106 mmol/L (98-107) 12/31/23 18:24 Carbon Dioxide 23 mmol/L (22-29) 12/31/23 18:24 Anion Gap 15.9 (5-19) 12/31/23 18:24 BUN 5 mg/dL (8-23) L 12/31/23 18:24 Creatinine 0.7 mg/dL (0.5-0.9) 12/31/23 18:24 GFR Calculation 84.2 mL/min (90-130) L 12/31/23 18:24 Glucose 81 mg/dL (65-115) 12/31/23 18:24 Calculated Osmolality 288 mOsm/kg (285-295) 12/31/23 18:24 Calcium 9.0 mg/dL (8.5-10.5) 12/31/23 18:24 Total Bilirubin 0.7 mg/dL (0.15-1.2) 12/31/23 18:24 AST 27 U/L (0-32) 12/31/23 18:24 ALT 24 U/L (0-33) 12/31/23 18:24 Alkaline Phosphatase 61 U/L (35-105) 12/31/23 18:24 Total Protein 7.0 g/dL (6.6-8.7) 12/31/23 18:24 Albumin 4.2 g/dL (3.5-5.2) 12/31/23 18:24 Globulin 2.8 g/dL (1.3-4.6) 12/31/23 18:24 Lipase 46 U/L (13-60) 12/31/23 18:24 Urine Color Yellow (Yellow) 12/31/23 18:00 Urine Appearance Clear (CLEAR) 12/31/23 18:00 Urine pH 7.0 (5-7) 12/31/23 18:00 Ur Specific [place] 1.007 (1.005-1.030) 12/31/23 18:00 Urine Protein Negative (Negative) 12/31/23 18:00 Urine Glucose (UA) Negative (Normal) 12/31/23 18:00 Urine Ketones Negative (Negative) 12/31/23 18:00 Urine Blood Negative (Negative) 12/31/23 18:00 Urine Nitrate Negative (Negative) 12/31/23 18:00 Urine Bilirubin Negative (Negative) 12/31/23 18:00 Urine Urobilinogen 0.2 mg/dL (Negative) 12/31/23 18:00 Ur Leukocyte Esterase Negative (Negative) 12/31/23 18:00 Urine RBC 0-2 /hpf (0-2) 12/31/23 18:00 Urine WBC 0-5 /hpf (0-5) 12/31/23 18:00 Ur Squamous Epith Cells 0-5 /hpf (0-5) 12/31/23 18:00 Amorphous Sediment Not Reportable 12/31/23 18:00 Urine Bacteria None seen /hpf (NONE) 12/31/23 18:00 Hyaline Casts 0-4 /lpf H 12/31/23 18:00 No radiology studies performed this visit Discharge Plan Discharge Patient Disposition: Home Clinical Impression: Abdominal pain Qualifiers: Abdominal location: generalized Qualified Code(s): R10.84 - Generalized abdominal pain Condition: Stable Prescriptions: No Action ondansetron HCl 4 mg tablet 4 mg PO Q8H PRN (Reason: Nausea And Vomiting) amlodipine 10 mg tablet 10 mg PO QPM pantoprazole 40 mg tablet,delayed release (DR/EC) 40 mg PO QPM hydrocodone-acetaminophen 5-325 mg tablet 1 tab PO Q6H PRN (Reason: pain) Qty: 14 0RF escitalopram oxalate 20 mg tablet 20 mg PO QPM ondansetron 4 mg tablet,disintegrating 4 mg PO Q6H PRN (Reason: nausea and vomiting) Qty: 14 0RF hydrocodone-acetaminophen 7.5-325 mg tablet 1 tab PO Q8H PRN (Reason: pain) Qty: 14 0RF Discharge Orders: Discharge ED (Routine); Ordered 12/31/23 Ordered By: Manuel Cannon Referrals: Conrad Amaya [Primary Care Provider] - Discharge Diet: Usual diet Discharge Activity: Increase activity as tolerated Patient Instructions: Abdominal Pain (ED) Activity Restrictions/Additional Instructions: You will need to follow-up with primary care in the morning for further medication for your abdominal pain. This seems to be a chronic problem for you and it needs to be managed by your primary care provider. Thank you for choosing [facility] for your healthcare needs today. Please realize that you were seen in the emergency department and that we are providing you with an emergency medical screening exam and this may not be a complete and all exclusive of all testing and/or medical workup we may need to determine your element or severity of your illness. It is very important that you follow-up as instructed with your primary care provider or specialist for the additional evaluation and to discuss your medical treatment plan. You may return to the emergency department should you have concerns or if your condition changes or worsens in any way. Coding Level of Care Code ED Mechanic/Welder for Nadia Poole
[2023-12-31 17:15] VITALS: PULSE 66; O2SAT 99
[2023-12-31 17:32] VITALS: RESP 20; O2SAT 98
[2023-12-31] MEDS: morphine 4 mg/mL SDV 1 mL IVP ×2 (17:32→19:11)
[2023-12-31] MEDS: sodium chloride 0.9% 250 ML IV (17:32)
[2023-12-31] MEDS: ondansetron 2 mg/ML SDV 2 mL 4 MG IVP ×2 (17:32→19:11)
[2023-12-31 17:45] VITALS: BP 142/74; PULSE 68; RESP 16; O2SAT 97
[2023-12-31 18:16] LABS: Charge for UA Resulting for Rev
[2023-12-31 18:19] LABS: Bilirubin Urine Negative (Negative); Blood Urine Negative (Negative); Glucose Urine UA Negative (Normal); Ketones Urine Negative (Negative); Leukocyte Esterase Urine Negative (Negative); Nitrate Urine Negative (Negative); Protein Urine Negative (Negative); Specific Gravity, Urine 1.007 (1.005-1.030); Urine Appearance Clear (CLEAR); Urine Color Yellow (Yellow); Urobilinogen Urine 0.2 mg/dL (Negative)
[2023-12-31 18:25] LABS: Bacteria Urine None Seen /hpf; Hyaline Casts Urine 0-4 /lpf; RBC Urine 0-2 /hpf (0-2); Squamous Epithelial Cell Urine 0-5 /hpf (0-5); WBC Urine 0-5 /hpf (0-5)
[2023-12-31 18:42] LABS: Basophils % 0.6 %; Eosinophils # 0.2 10^3/uL (0.0-0.8); Hematocrit 38.9 % (36-47); Lymphocytes # 1.3 10^3/uL (0.8-4.8); Lymphocytes % 27.3 %; Mean Corpuscular HGB Conc 32.9 g/dL (30-55); Mean Corpuscular Hemoglobin 28.1 pg (27-33); Mean Corpuscular Volume 85.5 fl (85-98); Mean Platelet Volume 12.1 fL (7.4-10.4); Monocytes # 0.4 10^3/uL (0.2-0.9); Monocytes % 8.3 %; Neutrophils # 2.83 10^3/uL (1.8-7.7); Neutrophils % 58.6 %; Nucleated Red Blood Cells % 0 %; Platelet Count 137 10^3/cmm (157-399); Red Blood Count 4.55 10^6/uL (3.85-5.65); Red Cell Distribution Width 13.8 % (12.1-15.1); White Blood Count 4.83 10^3/uL (3.29-11.43)
[2023-12-31 18:59] LABS: Alanine Aminotransferase 24 U/L (0-33); Albumin Level 4.2 g/dL (3.5-5.2); Alkaline Phosphatase 61 U/L (35-105); Aspartate Amino Transferase 27 U/L (0-32); Blood Urea Nitrogen 5 mg/dL (8-23); Carbon Dioxide 23 mmol/L (22-29); Chloride 106 mmol/L (98-107); Creatinine Clr Calc Pharmacy 74.6248; Globulin 2.8 g/dL (1.3-4.6); Glomerular Filtration Rate 84.2 mL/min (90-130); Glucose 81 mg/dL (65-115); Lipase 46 U/L (13-60); Osmolality Calculated 288 mOsm/kg (285-295); Sodium 141 mmol/L (136-145); Total Bilirubin 0.7 mg/dL (0.15-1.2)
[2023-12-31 19:01] LABS: Anion Gap 15.9 (5-19); Potassium 3.9 mmol/L (3.5-5.1)
[2023-12-31 19:25] VITALS: BP 142/86; PULSE 72; RESP 16; O2SAT 98
== END 2023-12-31 19:26 | disposition home or self-care (01) ==
PROVIDERS: Emergency Provider Nurse Practitioner Family; PCP Family Medicine
DX: R10.84 Generalized abdominal pain (principal); F17.210 Nicotine dependence, cigarettes, uncomplicated; I10 Essential (primary) hypertension; Z86.19 Personal history of other infectious and parasitic diseases
CPT/HCPCS: 80053; 81003; 81015; 83690; 85025; 96374; 96375; 96376; 99284; J2270; J2405; J7050

== ENCOUNTER 2024-01-20 12:21 | Emergency (ER) | payer MEDICARE, MEDICAID, SELFPAY ==
[2024-01-20 12:47] VITALS: BP 149/91; PULSE 70; RESP 17; TEMP 36.6; O2SAT 100; BMI 26.6
--- NOTE | 2024-01-20 13:15 | ECG_ITS ---
[facility] Test Date: 2024-01-20 Pat Name: Stella Covarrubias Department: Room: Gender: Female Marriage Counselor: : 1960 Requested By: Manuel Walker Order Number: [id number] Ella MD: Valentina Storm M.D. Measurements Intervals [place] Rate: 67 P: 70 [place]: 143 QRS: 67 QRSD: 71 T: 70 QT: 391 QTc: 414 Interpretive Statements SINUS RHYTHM SEPTAL MYOCARDIAL INFARCTION , PROBABLY OLD [40+ ms Q WAVE IN V1/V2] Compared to ECG 04/15/2023 16:07:35 No significant changes Electronically Signed On 01-20-2024 17:37:38 CDT by Valentina Storm M.D. [id number]
--- NOTE | 2024-01-20 13:19 | ED_ITS ---
HPI - Abdominal Pain 2 General: Chief Complaint: Abdominal Pain Stated Complaint: severe abd pain and nausea Time Seen by Provider: 01/20/24 13:13 History of Present Illness: 63-year-old female comes in today with c omplaints of abdominal pain and nausea. Patient appears nontoxic. Patient has a history of chronic abdominal pain, pancreatitis, and cirrhosis. Patient reports increased pain and discomfort starting this morning. Patient stated some diarrhea last night. Patient reports no fever or chills. On exam patient complained of chest pain. Associated Symptoms: Reports diarrhea Related Data Home Medications Medication Instructions Recorded Confirmed amlodipine 10 mg tablet 10 mg PO QPM 03/05/23 12/07/23 ondansetron HCl 4 mg tablet 4 mg PO Q8H PRN Nausea And Vomiting 03/05/23 12/07/23 escitalopram oxalate 20 mg tablet 20 mg PO QPM 12/07/23 12/07/23 Previous Rx's Medication Instructions Recorded ondansetron 4 mg disintegrating 4 mg PO Q6H PRN nausea and 12/07/23 tablet vomiting #14 tabs pantoprazole 40 mg tablet,delayed 40 mg PO QPM #90 tabs 01/05/24 release hydrocodone 7.5 mg-acetaminophen 1 tab PO Q8H PRN pain #12 tabs 01/20/24 325 mg tablet Allergies Allergy/AdvReac Type Severity Reaction Status Date / Time prochlorperazine Allergy Intermediate ADR-Irritab Verified 09/05/23 16:18 [From Compazine] le compazine Allergy makes her Uncoded 09/05/23 16:18 want to run Review of Systems 2 General: Reports: 10 or more systems reviewed and unremarkable except in HPI and below Card: Reports: chest pain GI: Reports: abdominal pain and diarrhea PFSH ED 2 PFSH: Medical History Renal mass Basal cell carcinoma (BCC) Chronic right shoulder pain Chronic neck pain Constipation Diverticulosis of colon Generalized anxiety disorder Cirrhosis of liver History of past hepatitis C that was treated, 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 Cervical radiculopathy Herniation of left side of L4-L5 intervertebral disc HTN (hypertension) Depression Degenerative disk disease 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, 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 Surgical History History of hysterectomy S/P TIPS (transjugular intrahepatic portosystemic shunt) History of neck surgery Family History Mother Heart problem Brother Heart problem Denies family history of Pancreatitis Social History Smoking and tobacco/nicotine status: current every day tobacco/nicotine user cigarettes [ Other cigarette details: 4-5 cigarettes per day] Second hand smoke exposure: Yes Alcohol intake: never Substance/Drug Use: never Physical Exam 2 Const: COMMON NORMALS: alert HENMT: HEAD & SCALP: normal to inspection Neck/C-Spine: COMMON NORMALS: full ROM Resp: COMMON NORMALS: normal respiratory effort Cardio: COMMON NORMALS: regular rate RATE: regular rate GI: COMMON NORMALS: Soft to palpation PALPATION: Yes Soft to palpation Back/Pelvis: COMMON NORMALS: thoracic and lumbar spine normal to inspection Extremity: COMMON NORMALS: normal to inspection Neuro: SENSORIUM/ORIENTATION: Yes alert Skin: COMMON NORMALS: turgor normal GENERAL SKIN EXAM: turgor normal Course 2 Vital Signs: Vital signs: Vital Signs Temperature 97.9 F 01/20/24 12:47 Pulse Rate 101 H 01/20/24 15:07 Respiratory Rate 18 01/20/24 15:12 Blood Pressure 146/77 01/20/24 15:07 Pulse Oximetry 99 01/20/24 15:12 Oxygen Delivery Me thod Room Air 01/20/24 13:43 MDM - Abdominal Pain Medical Decision Making Patient comes in today for complaints of increased abdominal pain. Patient appears nontoxic. Patient has some mild abdominal distention. Bowel sounds are active. Skin warm and dry. Vital signs are normal except for some mild elevation of blood pressure at 149/90. Differential diagnosis includes but not limited to pancreatitis, bowel obstruction, constipation, urinary tract infection. CBC, CMP was unremarkable. Troponin was unchanged at [address] of the abdomen pelvis was unremarkable. Believe patient has chronic abdominal pain related to her chronic disease. Patient will continue with routine plan. Patient was given 12 tablets of hydrocodone until she can follow-up with her primary care for further recommendations of treatment. Patient reports understanding agreed to plan. Lab Data 01/20/24 13:29 01/20/24 13:29 Labs/Radiology: Radiology Impressions Abdomen/Pelvis CT 01/20/24 13:53 IMPRESSION: 1. Cirrhotic liver with a small amount of ascites. 2. Prior cholecystectomy and hysterectomy. 3. There is mild gastric and proximal duodenal wall thickening which may be inflammatory. No ulceration is identified. 4. No free air or perforation. 5. Distal colonic diverticular disease without acute diverticulitis. Laboratory Results WBC 4.66 10^3/uL (3.29-11.43) 01/20/24 13:29 RBC 4.61 10^6/uL (3.85-5.65) 01/20/24 13:29 Hgb 12.70 g/dL (11.27-16.99) 01/20/24 13:29 Hct 38.6 % (36-47) 01/20/24 13:29 MCV 83.7 fl (85-98) L 01/20/24 13:29 MCH 27.5 pg (27-33) 01/20/24 13:29 MCHC 32.9 g/dL (30-55) 01/20/24 13:29 RDW 13.5 % (12.1-15.1) 01/20/24 13:29 Plt Count 165 10^3/cmm (157-399) 01/20/24 13:29 MPV 11.7 fL (7.4-10.4) H 01/20/24 13:29 Neut % (Auto) 53.4 % 01/20/24 13:29 Lymph % (Auto) 34.5 % 01/20/24 13:29 [place] % (Auto) 7.1 % 01/20/24 13:29 Eos % (Auto) 3.9 % 01/20/24 13:29 Baso % (Auto) 1.1 % 01/20/24 13:29 Neut # (Auto) 2.49 10^3/uL (1.8-7.7) 01/20/24 13:29 Lymph # (Auto) 1.6 10^3/uL (0.8-4.8) 01/20/24 13:29 [place] # (Auto) 0.3 10^3/uL (0.2-0.9) 01/20/24 13:29 Eos # (Auto) 0.2 10^3/uL (0.0-0.8) 01/20/24 13:29 Baso # (Auto) 0.1 10^3/uL (0.0-0.1) 01/20/24 13:29 Nucleated RBC % (auto) 0 % 01/20/24 13:29 Nucleated RBCs # 0.0 /100WBC 01/20/24 13:29 Sodium 140 mmol/L (136-145) 01/20/24 13:29 Potassium 4.5 mmol/L (3.5-5.1) 01/20/24 13:29 Chloride 105 mmol/L (98-107) 01/20/24 13:29 Carbon Dioxide 23 mmol/L (22-29) 01/20/24 13:29 Anion Gap 16.5 (5-19) 01/20/24 13:29 BUN 8 mg/dL (8-23) 01/20/24 13:29 Creatinine 0.6 mg/dL (0.5-0.9) 01/20/24 13:29 GFR Calculation 100.6 mL/min (90-130) 01/20/24 13:29 Glucose 85 mg/dL (65-115) 01/20/24 13:29 Calculated Osmolality 288 mOsm/kg (285-295) 01/20/24 13:29 Calcium 9.3 mg/dL (8.5-10.5) 01/20/24 13:29 Total Bilirubin 0.5 mg/dL (0.15-1.2) 01/20/24 13:29 AST 31 U/L (0-32) 01/20/24 13:29 ALT 22 U/L (0-33) 01/20/24 13:29 Alkaline Phosphatase 73 U/L (35-105) 01/20/24 13:29 Troponin T Baseline < 6 ng/L (0-10) 01/20/24 13:29 Troponin T 120 Minute 6.00 ng/L (0-10) 01/20/24 15:08 Delta Troponin T 0.67434 ABS# (0-10) 01/20/24 15:08 Total Protein 7.5 g/dL (6.6-8.7) 01/20/24 13:29 Albumin 4.3 g/dL (3.5-5.2) 01/20/24 13:29 Globulin 3.2 g/dL (1.3-4.6) 01/20/24 13:29 Lipase 70 U/L (13-60) H 01/20/24 13:29 Urine Color Yellow (Yellow) 01/20/24 13:40 Urine Appearance Clear (CLEAR) 01/20/24 13:40 Urine pH 8.0 (5-7) A 01/20/24 13:40 Ur Specific [place] 1.009 (1.005-1.030) 01/20/24 13:40 Urine Protein Negative (Negative) 01/20/24 13:40 Urine Glucose (UA) Negative (Normal) 01/20/24 13:40 Urine Ketones Negative (Negative) 01/20/24 13:40 Urine Blood Negative (Negative) 01/20/24 13:40 Urine Nitrate Negative (Negative) 01/20/24 13:40 Urine Bilirubin Negative (Negative) 01/20/24 13:40 Urine Urobilinogen 1.0 mg/dL (Negative) 01/20/24 13:40 Ur Leukocyte Esterase Negative (Negative) 01/20/24 13:40 Amorphous Sediment Not Reportable 01/20/24 13:40 All radiology interpretation(s) finalized by discharge EKG Data EKG 1: I personally reviewed and interpreted this EKG as follows: EKG interpretation date: 01/20/24 EKG interpretation time: 13:18 Prior EKG tracings: not available for review Interpretation: EKG shows a sinus rhythm with a regular rate at [address] elevation or ectopy is noted. No prior exam was available for immediate comparison. Mild artifact was present on the EKG. Computer generated interpretation: Sinus rhythm. Septal myocardial infarct, probably old. Compared to EKG 04/15/2023 1607, no significant changes. EKG 2: I personally reviewed and interpreted this EKG as follows: EKG interpretation date: 01/20/24 EKG interpretation time: 15:14 Prior EKG tracings: available for review Interpretation: EKG shows sinus rhythm regular rate at [address] elevation or ectopy is noted. No changes noted from prior exam 2 hours ago. Computer generated interpretation: Normal sinus rhythm. Discharge Plan Discharge Patient Disposition: Home Clinical Impression: Abdominal pain Qualifiers: Abdominal location: generalized Qualified Code(s): R10.84 - Generalized abdominal pain Cirrhosis of liver Qualifiers: Hepatic cirrhosis type: unspecified hepatic cirrhosis Ascites presence: with ascites Qualified Code(s): K74.60 - Unspecified cirrhosis of liver Condition: Stable Prescriptions: Continued hydrocodone-acetaminophen 7.5-325 mg tablet 1 tab PO Q8H PRN (Reason: pain) Qty: 12 0RF Discontinued hydrocodone-acetaminophen 5-325 mg tablet 1 tab PO Q6H PRN (Reason: pain) Qty: 14 0RF No Action pantoprazole 40 mg tablet,delayed release (DR/EC) 40 mg PO QPM Qty: 90 1RF ondansetron HCl 4 mg tablet 4 mg PO Q8H PRN (Reason: Nausea And Vomiting) amlodipine 10 mg tablet 10 mg PO QPM escitalopram oxalate 20 mg tablet 20 mg PO QPM ondansetron 4 mg tablet,disintegrating 4 mg PO Q6H PRN (Reason: nausea and vomiting) Qty: 14 0RF Discharge Orders: Discharge ED (Routine); Ordered 01/20/24 Ordered By: Manuel Cannon Referrals: Conrad Amaya [Primary Care Provider] - Discharge Diet: Usual diet Discharge Activity: Increase activity as tolerated Patient Instructions: Opioid Safety, Pain Management Activity Restrictions/Additional Instructions: Follow-up with primary care at neck scheduled appointment. Drink plenty of water and fluids. Return to ED for new concerns. Coding Level of Care Code ED Radiation Control Specialist for Nadia Poole
--- NOTE | 2024-01-20 13:37 | PC.NURSE ---
Fentanyl ordered for patients pain control by provider. Pt states that this medication helps her pain but causes her to be too high. Pt requesting something different. Manuel Cannon lap hand tool notified.
[2024-01-20] MEDS: ondansetron 2 mg/ML SDV 2 mL 4 MG IVP (13:40)
[2024-01-20 13:42] VITALS: RESP 18; O2SAT 98
[2024-01-20] MEDS: morphine 4 mg/mL SDV 1 mL IVP (13:42)
[2024-01-20 13:43] VITALS: BP 176/92; PULSE 67; RESP 18; O2SAT 98
[2024-01-20 13:48] LABS: Basophils # 0.1 10^3/uL (0.0-0.1); Basophils % 1.1 %; Eosinophils # 0.2 10^3/uL (0.0-0.8); Eosinophils % 3.9 %; Hematocrit 38.6 % (36-47); Lymphocytes # 1.6 10^3/uL (0.8-4.8); Lymphocytes % 34.5 %; Mean Corpuscular HGB Conc 32.9 g/dL (30-55); Mean Corpuscular Hemoglobin 27.5 pg (27-33); Mean Corpuscular Volume 83.7 fl (85-98); Mean Platelet Volume 11.7 fL (7.4-10.4); Monocytes # 0.3 10^3/uL (0.2-0.9); Monocytes % 7.1 %; Neutrophils # 2.49 10^3/uL (1.8-7.7); Neutrophils % 53.4 %; Nucleated Red Blood Cells % 0 %; Platelet Count 165 10^3/cmm (157-399); Red Blood Count 4.61 10^6/uL (3.85-5.65); Red Cell Distribution Width 13.5 % (12.1-15.1); White Blood Count 4.66 10^3/uL (3.29-11.43)
[2024-01-20 13:53] LABS: Charge for UA Resulting for Rev
--- NOTE | 2024-01-20 13:53 | CT_ITS ---
WS: [id number] CT ABDOMEN AND PELVIS WITH CONTRAST HISTORY: abd pain, distention TECHNIQUE: Imaging performed of the abdomen and pelvis with IV contrast. Single phase imaging of the abdomen. Coronal and sagittal reformats are submitted. All CT scans at [facility] use at lu [facility] one of these dose optimization techniques: automated exposure control; mA and/or kV adjustment per patient size (includes targeted exams where dose is matched to clinical indication); or iterative re construction. IV CONTRAST: Omnipaque 350; 100 mL IV. Oral contrast: No DLP: 642.48 mGy.cm COMPARISON: 11/16/2023, 03/24/2023 Lower thorax: Lung bases are clear. Heart is normal size. Small hiatal hernia. Liver/biliary system: Cirrhotic liver. No mass. No bile duct dilatation. Gallbladder: Prior cholecystectomy. Common bile duct is top normal size at 6 mm throughout its course . There is mild circumferential wall thickening of the common bile duct towards the pancreatic head. Pancreas: There is mild dilatation of the pancreatic duct at the pancreatic head. No mass identified. Spleen: Normal size spleen. Nonspecific low-attenuation 5 mm focus in the posterior spleen. Adrenal glands: Normal. Right kidney: Cortical cyst upper pole. No obstruction. Left kidney: No obstruction. No solid mass. Aorta: Moderate atherosclerosis. No thrombus in the SMA or celiac axis. Lymphadenopathy: None. Free fluid: There is a small amount of free fluid adjacent to the liver and within the pelvis. GI tract: Very mild gastric wall thickening towards the antrum. There is increased fluid. No ulcerati on identified at this time by CT. There is mild mild wall thickening of the duodenal C-loop and incre ased fluid. Similar to prior studies. No small bowel obstruction. Diverticular disease without acute diverticulitis. Appendix is not identified. Abdominal wall: Unremarkable abdominal wall. No hernia. Pelvis: Small amount of free fluid in the pelvis. Prior hysterectomy. Bones: Degenerative disc disease at L4-5. CT/CT abdomen pelvis w con* [id number] IMPRESSION: 1. Cirrhotic liver with a small amount of ascites. 2. Prior cholecystectomy and hysterectomy. 3. There is mild gastric and proximal duodenal wall thickening which may be in flammatory. No ulceration is identified. 4. No free air or perforation. 5. Distal colonic diverticular disease without acute diverticulitis.
[2024-01-20 13:58] LABS: Alanine Aminotransferase 22 U/L (0-33); Albumin Level 4.3 g/dL (3.5-5.2); Alkaline Phosphatase 73 U/L (35-105); Anion Gap 16.5 (5-19); Aspartate Amino Transferase 31 U/L (0-32); Blood Urea Nitrogen 8 mg/dL (8-23); Calcium 9.3 mg/dL (8.5-10.5); Carbon Dioxide 23 mmol/L (22-29); Chloride 105 mmol/L (98-107); Globulin 3.2 g/dL (1.3-4.6); Glomerular Filtration Rate 100.6 mL/min (90-130); Glucose 85 mg/dL (65-115); Lipase 70 U/L (13-60); Osmolality Calculated 288 mOsm/kg (285-295); Potassium 4.5 mmol/L (3.5-5.1); Sodium 140 mmol/L (136-145); Total Bilirubin 0.5 mg/dL (0.15-1.2); Total Protein 7.5 g/dL (6.6-8.7); Troponin(5th) Baseline < 6 ng/L (0-10)
[2024-01-20 14:01] LABS: Bilirubin Urine Negative (Negative); Blood Urine Negative (Negative); Glucose Urine UA Negative (Normal); Ketones Urine Negative (Negative); Leukocyte Esterase Urine Negative (Negative); Nitrate Urine Negative (Negative); Protein Urine Negative (Negative); Specific Gravity, Urine 1.009 (1.005-1.030); Urine Appearance Clear (CLEAR); Urine Color Yellow (Yellow)
[2024-01-20] MEDS: iohexol 350 mg/mL 500 mL Btl (per mL) IV (14:44)
[2024-01-20 15:07] VITALS: BP 146/77; PULSE 101; RESP 16; O2SAT 94
[2024-01-20 15:12] VITALS: RESP 18; O2SAT 99
[2024-01-20] MEDS: morphine 4 mg/mL SDV 1 mL 2 MG IVP (15:12)
--- NOTE | 2024-01-20 15:12 | ECG_ITS ---
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 Measurements Intervals [place] Rate: 72 P: 80 DE: 153 QRS: 76 QRSD: 73 T: 79 QT: 414 QTc: 453 Interpretive Statements SINUS RHYTHM Compared to ECG 01/20/2024 13:14:37 Myocardial infarct finding no longer present Electronically Signed On 01-20-2024 22:39:00 CDT by Valentina Storm M.D. [id number]
[2024-01-20 15:36] LABS: Troponin 5 2HR Delta 0.00001 ABS# (0-10)
[2024-01-20 16:02] VITALS: BP 138/94; PULSE 67; RESP 18; O2SAT 99
== END 2024-01-20 16:04 | disposition home or self-care (01) ==
PROVIDERS: Emergency Medicine; Emergency Provider Nurse Practitioner Family; PCP Family Medicine
DX: R10.84 Generalized abdominal pain (principal); K74.60 Unspecified cirrhosis of liver; I25.2 Old myocardial infarction; F17.210 Nicotine dependence, cigarettes, uncomplicated; I10 Essential (primary) hypertension; Z86.19 Personal history of other infectious and parasitic diseases
CPT/HCPCS: 36415; 74177; 80053; 81003; 81015; 83690; 84484; 85025; 93005; 96374; 96375; 96376; 99285; J2270; J2405

== ENCOUNTER → 2024-01-22 07:51 | Outpatient (BNVA) | payer MEDICARE, MEDICAID, SELFPAY | PROVIDERS: PCP Family Medicine; Referring Provider Family Medicine; Visit Provider Specialist | DX: G43.011 Migraine without aura, intractable, with status migrainosus (principal) | CPT/HCPCS: 99204; 99205 ==

== ENCOUNTER 2024-02-02 15:47 | Emergency (ER) | payer MEDICARE, MEDICAID, SELFPAY ==
[2024-02-02 15:50] VITALS: BP 136/77; PULSE 69; RESP 18; TEMP 36.5; O2SAT 96; BMI 25.7
--- NOTE | 2024-02-02 15:53 | XRR_ITS ---
PROCEDURE INFORMATION: Exam: XR Complete Acute Abdomen Series Including Chest Exam date and time: 02/02/2024 3:56 PM Age: 63 years old Clinical indication: Nausea and vomiting; Prior surgery; Surgery date: 6+ months; Surgery type: Hyst gb; Additional info: Abdominal pain TECHNIQUE: Imaging protocol: Radiologic exam. Complete acute abdomen series, including 2 or more views of the abdomen and a single view chest. COMPARISON: CT abdomen pelvis con [id number] 04/15/2023 5:29 PM FINDINGS: Lungs: No pulmonary consolidation. Pleural spaces: No pneumothorax or pleural effusion is seen. Heart/Mediastinum: Chest radiograph demonstrates a normal size the cardiac silhouette and mediastinal contours. Gastrointestinal tract: No evidence of dilated loops or air-fluid levels to suggest an obstructed bowel gas pattern. Intraperitoneal space: Normal. No free air. Organs: There are surgical clips in the right upper quadrant of the abdomen suggesting prior cholecystectomy. Vasculature: Incidental calcifications in the pelvis consistent with phleboliths as seen on prior CT. Bones/joints: Prior cervical spinal fixation hardware which appears intact. Regional osseous structures otherwise appear intact with scattered degenerative change. Soft tissues: Normal. XR/XR acute abdomen series [id number] IMPRESSION: 1. No radiographically apparent acute cardiopulmonary disease or acute abdominal pathology. Specifically, nonobstructed bowel gas pattern.
[2024-02-02 16:07] VITALS: BP 136/78; PULSE 68; RESP 18; O2SAT 96
[2024-02-02 16:20] LABS: Basophils % 0.8 %; Eosinophils # 0.2 10^3/uL (0.0-0.8); Eosinophils % 4.7 %; Hematocrit 38.3 % (36-47); Lymphocytes # 1.6 10^3/uL (0.8-4.8); Mean Corpuscular HGB Conc 32.1 g/dL (30-55); Mean Corpuscular Hemoglobin 27.2 pg (27-33); Mean Corpuscular Volume 84.7 fl (85-98); Mean Platelet Volume 11.5 fL (7.4-10.4); Monocytes # 0.4 10^3/uL (0.2-0.9); Neutrophils # 2.78 10^3/uL (1.8-7.7); Neutrophils % 54.3 %; Nucleated Red Blood Cells % 0 %; Platelet Count 152 10^3/cmm (157-399); Red Blood Count 4.52 10^6/uL (3.85-5.65); Red Cell Distribution Width 12.7 % (12.1-15.1); White Blood Count 5.12 10^3/uL (3.29-11.43)
--- NOTE | 2024-02-02 16:20 | W.ED.SOB ---
HPI - SOB/Dyspnea General: Chief Complaint: Shortness of Breath/Dyspnea Stated Complaint: abd pain/sob/liver failure Time Seen by Provider: 02/02/24 15:48 History of Present Illness: HPI Narrative: 63-year-old female with history of chronic pain syndrome, hepatitis C and cirrhosis who presents emergency room by ambulance with abdominal pain. She also says she feels short of breath. No cough. No focal abdominal tenderness. No significant amount of ascites on exam. She says she has not had her pain medications in a month. Related Data Home Medications Medication Instructions Recorded Confirmed amlodipine 10 mg tablet 10 mg PO QPM 03/05/23 01/22/24 ondansetron HCl 4 mg tablet 4 mg PO Q8H PRN Nausea And Vomiting 03/05/23 01/22/24 escitalopram oxalate 20 mg tablet 20 mg PO QPM 12/07/23 01/22/24 Previous Rx's Medication Instructions Recorded ondansetron 4 mg disintegrating 4 mg PO Q6H PRN nausea and 12/07/23 tablet vomiting #14 tabs pantoprazole 40 mg tablet,delayed 40 mg PO QPM #90 tabs 01/05/24 release hydrocodone 7.5 mg-acetaminophen 1 tab PO Q8H PRN pain #12 tabs 01/20/24 325 mg tablet topiramate 100 mg tablet See Rx Instructions .Route 01/22/24 .COMPLEX #90 tabs Allergies Allergy/AdvReac Type Severity Reaction Status Date / Time prochlorperazine Allergy Intermediate ADR-Irritab Verified 01/22/24 07:58 [From Compazine] le compazine Allergy makes her Uncoded 01/22/24 07:58 want to run Review of Systems Narrative: Constitutional symptoms: Negative except as documented in HPI. Skin symptoms: Negative except as documented in HPI. Eye symptoms: Negative except as documented in HPI. ENMT symptoms: Negative except as documented in HPI. Respiratory symptoms: Negative except as documented in HPI. Cardiovascular symptoms: Negative except as documented in HPI. Gastrointestinal symptoms: Negative except as documented in HPI. Genitourinary symptoms: Negative except as documented in HPI. Musculoskeletal symptoms: Negative except as documented in HPI. Neurologic symptoms: Negative except as documented in HPI. Psychiatric symptoms: Negative except as documented in HPI. Endocrine symptoms: Negative except as documented in HPI. 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 Skin: Warm, dry. Head: Normocephalic, atraumatic. Neck: Supple, trachea midline. Eye: Extraocular movements are intact. Ears, nose, mouth and throat: mucosa moist. Cardiovascular: Regular, Normal peripheral perfusion. Respiratory: Lungs are clear to auscultation, respirations are non-labored, breath sounds are equal, Symmetrical chest wall expansion. Gastrointestinal: Soft, some mild generalized tenderness, no ascites, no distention, Musculoskeletal: Normal ROM, no deformity. Neurological: Alert and oriented, No focal neurological deficit observed. Psychiatric: Cooperative, appropriate mood & affect. Course Vital Signs: Vital signs: Vital Signs Temperature 97.7 F 02/02/24 15:50 Pulse Rate 81 02/02/24 16:54 Respiratory Rate 16 02/02/24 16:54 Blood Pressure 111/67 02/02/24 16:54 Pulse Oximetry 95 02/02/24 16:54 Oxygen Delivery Me thod Room Air 02/02/24 16:54 MDM - SOB/Dyspnea Medical Decision Making Lab Review: Laboratory results were reviewed and interpreted by myself the emergency room physician. No leukocytosis. No anemia. Platelets are little bit low at 152. BUN/creatinine are normal at 10 and 0.7. CRP is normal. She does not have any apparent ascites. Really does not look like she has a bad cirrhosis at this point. Her platelets are not terribly low. She is not having any ascites. Acute abdominal series: chest x-ray: No acute process. No obvious infiltrates. No pneumothorax. No cardiomegaly. This was reviewed and interpreted by myself the emergency room physician Abdomen x-ray: Nonspecific bowel gas pattern. No evidence of free air or obstruction. This was reviewed and interpreted by myself the emergency room physician. I reviewed the patient's medical record. Review of the chart reveals that patient has been coming to the emergency room every 2 weeks or so and getting a prescription for narcotic pain medications. When I discussed this with her and tell her that we cannot continue doing this she says that her primary doctor will not write her any pain medications and that is why she keeps coming here. We discussed that she will either have to have a primary pain specialist to write for pain medications and there is no acute indication for this out of the emergency room. She expresses understanding Reexamination: Upon entry to the room patient is sleeping comfortably. Vitals have remained normal while she is been here. No increased work of breathing. No altered mental status. No focal motor deficits. Assessment and plan: Chronic pain syndrome Chronic abdominal pain - Discharged home - Discussed plan with patient. Answered any questions. - Evaluation and treatment of this problem were appropriate in the emergency setting. Lab Data 02/02/24 16:15 02/02/24 16:15 Labs/Radiology: Radiology Impressions Chest/Abdomen X-ray 02/02/24 15:53 IMPRESSION: 1. No radiographically apparent acute cardiopulmonary disease or acute abdominal pathology. Specifically, nonobstructed bowel gas pattern. Laboratory Results WBC 5.12 10^3/uL (3.29-11.43) 02/02/24 16:15 RBC 4.52 10^6/uL (3.85-5.65) 02/02/24 16:15 Hgb 12.30 g/dL (11.27-16.99) 02/02/24 16:15 Hct 38.3 % (36-47) 02/02/24 16:15 MCV 84.7 fl (85-98) L 02/02/24 16:15 MCH 27.2 pg (27-33) 02/02/24 16:15 MCHC 32.1 g/dL (30-55) 02/02/24 16:15 RDW 12.7 % (12.1-15.1) 02/02/24 16:15 Plt Count 152 10^3/cmm (157-399) L 02/02/24 16:15 MPV 11.5 fL (7.4-10.4) H 02/02/24 16:15 Neut % (Auto) 54.3 % 02/02/24 16:15 Lymph % (Auto) 32.0 % 02/02/24 16:15 [place] % (Auto) 8.0 % 02/02/24 16:15 Eos % (Auto) 4.7 % 02/02/24 16:15 Baso % (Auto) 0.8 % 02/02/24 16:15 Neut # (Auto) 2.78 10^3/uL (1.8-7.7) 02/02/24 16:15 Lymph # (Auto) 1.6 10^3/uL (0.8-4.8) 02/02/24 16:15 [place] # (Auto) 0.4 10^3/uL (0.2-0.9) 02/02/24 16:15 Eos # (Auto) 0.2 10^3/uL (0.0-0.8) 02/02/24 16:15 Baso # (Auto) 0.0 10^3/uL (0.0-0.1) 02/02/24 16:15 Nucleated RBC % (auto) 0 % 02/02/24 16:15 Nucleated RBCs # 0.0 /100WBC 02/02/24 16:15 PT 14.90 SECONDS (12.1-14.9) 02/02/24 16:15 INR 1.13 (0.8-1.2) 02/02/24 16:15 APTT 26.6 SECONDS (23.9-36.7) 02/02/24 16:15 Sodium 142 mmol/L (136-145) 02/02/24 16:15 Potassium 4.3 mmol/L (3.5-5.1) 02/02/24 16:15 Chloride 109 mmol/L (98-107) H 02/02/24 16:15 Carbon Dioxide 24 mmol/L (22-29) 02/02/24 16:15 Anion Gap 13.3 (5-19) 02/02/24 16:15 BUN 10 mg/dL (8-23) 02/02/24 16:15 Creatinine 0.7 mg/dL (0.5-0.9) 02/02/24 16:15 GFR Calculation 84.2 mL/min (90-130) L 02/02/24 16:15 Glucose 87 mg/dL (65-115) 02/02/24 16:15 Calculated Osmolality 292 mOsm/kg (285-295) 02/02/24 16:15 Calcium 8.9 mg/dL (8.5-10.5) 02/02/24 16:15 Total Bilirubin 0.5 mg/dL (0.15-1.2) 02/02/24 16:15 AST 22 U/L (0-32) 02/02/24 16:15 ALT 15 U/L (0-33) 02/02/24 16:15 Alkaline Phosphatase 60 U/L (35-105) 02/02/24 16:15 C-Reactive Protein 3.0 mg/L (0.0-4.9) 02/02/24 16:15 Total Protein 7.0 g/dL (6.6-8.7) 02/02/24 16:15 Albumin 4.1 g/dL (3.5-5.2) 02/02/24 16:15 Globulin 2.9 g/dL (1.3-4.6) 02/02/24 16:15 Lipase 58 U/L (13-60) 02/02/24 16:15 All radiology interpretation(s) finalized by discharge Discharge Plan Discharge Patient Disposition: Home Clinical Impression: Chronic pain syndrome, Chronic abdominal pain, Opiate dependence Condition: Stable Prescriptions: No Action pantoprazole 40 mg tablet,delayed release (DR/EC) 40 mg PO QPM Qty: 90 1RF topiramate 100 mg tablet See Rx Instructions .ROUTE .COMPLEX Qty: 90 0RF Dose Instruction: TAKE 1 TABLET BY MOUTH DAILY Rx Instructions: TAKE 1 TABLET BY MOUTH DAILY ondansetron HCl 4 mg tablet 4 mg PO Q8H PRN (Reason: Nausea And Vomiting) amlodipine 10 mg tablet 10 mg PO QPM escitalopram oxalate 20 mg tablet 20 mg PO QPM ondansetron 4 mg tablet,disintegrating 4 mg PO Q6H PRN (Reason: nausea and vomiting) Qty: 14 0RF hydrocodone-acetaminophen 7.5-325 mg tablet 1 tab PO Q8H PRN (Reason: pain) Qty: 12 0RF Discharge Orders: Discharge ED (Routine); Ordered 02/02/24 Ordered By: Alia Bates Referrals: Conrad Amaya [Primary Care Provider] - Patient Instructions: Abdominal Pain (ED), Opioid Safety, Pain Management Activity Restrictions/Additional Instructions: Thank you for choosing [facility] for your healthcare needs today. Please realize this is an emergency room and that we are providing you with a medical screening exam and this may not be complete and all inclusive of all the testing and or work up that you may need to determine your ailment or severity of your illness. You have been screened and evaluated and felt safe for discharge. Health conditions do change or evolve sometimes and as such it is important that you follow up with your Primary Doctor to be re checked, 3-5 days is a general good time frame for follow up. You are always welcome to return to the ED for re assessment if your symptoms are worsening or you have new concerns Coding Level of Care Code ED Belt Dresser for Nadia Poole
[2024-02-02 16:33] LABS: INR 1.13 (0.8-1.2)
[2024-02-02 16:34] LABS: Partial Thromboplastin Time 26.6 SECONDS (23.9-36.7)
[2024-02-02 16:41] LABS: Alanine Aminotransferase 15 U/L (0-33); Albumin Level 4.1 g/dL (3.5-5.2); Alkaline Phosphatase 60 U/L (35-105); Anion Gap 13.3 (5-19); Aspartate Amino Transferase 22 U/L (0-32); Blood Urea Nitrogen 10 mg/dL (8-23); Calcium 8.9 mg/dL (8.5-10.5); Carbon Dioxide 24 mmol/L (22-29); Chloride 109 mmol/L (98-107); Creatinine Clr Calc Pharmacy 76.9504; Globulin 2.9 g/dL (1.3-4.6); Glomerular Filtration Rate 84.2 mL/min (90-130); Glucose 87 mg/dL (65-115); Osmolality Calculated 292 mOsm/kg (285-295); Potassium 4.3 mmol/L (3.5-5.1); Sodium 142 mmol/L (136-145); Total Bilirubin 0.5 mg/dL (0.15-1.2)
[2024-02-02 16:47] LABS: Lipase 58 U/L (13-60)
[2024-02-02 16:54] VITALS: BP 111/67; PULSE 81; RESP 16; O2SAT 95
[2024-02-02 17:20] VITALS: BP 118/62; PULSE 65; RESP 16; O2SAT 97
== END 2024-02-02 17:22 | disposition home or self-care (01) ==
PROVIDERS: Emergency Provider Emergency Medicine; PCP Family Medicine
DX: G89.4 Chronic pain syndrome (principal); R10.9 Unspecified abdominal pain; F11.20 Opioid dependence, uncomplicated; I10 Essential (primary) hypertension; Z86.19 Personal history of other infectious and parasitic diseases; F17.210 Nicotine dependence, cigarettes, uncomplicated
CPT/HCPCS: 36415; 74022; 80053; 83690; 85025; 85610; 85730; 86140; 99284

== ENCOUNTER 2024-04-28 14:31 | Outpatient (CLI) | payer MEDICARE, MEDICAID, SELFPAY ==
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
== END 2024-04-28 14:32 | disposition home or self-care (01) ==
LOC: RAD 14:36
PROVIDERS: Visit Provider Student in an Organized Health Care Education/Training Program
DX: S43.121A Dislocation of right acromioclavicular joint, 100%-200% displacement, initial encounter (principal); M43.22 Fusion of spine, cervical region; X58.XXXA Exposure to other specified factors, initial encounter
CPT/HCPCS: 73030

== ENCOUNTER 2024-08-30 12:25 | Day surgery (SDC) | payer OTHER, MEDICAID, SELFPAY ==
[2024-08-30 12:43] VITALS: BP 121/85; PULSE 76; RESP 18; TEMP 36.3; O2SAT 98; BMI 27.4
[2024-08-30] MEDS: sodium chloride 0.9% 1,000 ML 30 ML IV (12:54)
--- NOTE | 2024-08-30 12:55 | ANES.PREANE2 ---
Pre-Anesthetic Assessment Height/Weight: Height 1.63 m Weight 72.575 kg Temp Pulse Resp BP Pulse Ox O2 Del Method 97.4 F L 76 18 121/85 98 Room Air 08/30/24 12:43 08/30/24 12:43 08/30/24 12:43 08/30/24 12:43 08/30/24 12:43 08/30/24 12:43 Preop Diagnosis: HB, change in bowel habits Operation Date: 08/30/24 13:30 Proposed Procedures p EGD [id number] R12 R19.4(Not Applicable) - Dorian Campos MD s Colonoscopy(Not Applicable) - Dorian Campos MD Was Beta Kyle taken within 24 hours: Yes Was Clonidine taken within 24 hours: N/A Last intake: Intake Last Liquid Date 08/29/24 Last Liquid Time 20:00 Last Solid Date 08/28/24 Last Solid Time 18:00 Social Tobacco Occas THC Exam alert, oriented x 3, clear to auscultation bilaterally and regular rate & rhythm Airway Submandibular: within normal limits Cervical ROM: within normal limits Mallampati: Class II Dentition: full History/ROS No significant history except as noted and No significant complaints CV/HEM Hypertension None reported Hepatic Cirrhosis TIPS procedure GI None reported Metabolic None reported Musc/skel Lower Back Pain and Weakness Neuropsych Anxiety and Cerebrovascular Accident L side weaker than R Anesthetic Plan ASA status: 3 Anesthesia: Anesthesia Evaluation and MAC Risk of > 500 ml blood loss (7ml/kg in children): No Medications/Allergies Home Medications ?Medication ?Instructions ?Recorded ?Confirmed ?Last Taken ?Type amlodipine 10 mg tablet 10 mg PO QPM 03/05/23 08/24/24 08/30/24 History escitalopram oxalate 20 mg tablet 20 mg PO QPM 12/07/23 08/24/24 08/29/24 History pantoprazole 40 mg tablet,delayed 40 mg PO QPM #90 tabs 01/05/24 08/24/24 08/29/24 Rx release hydrocodone 7.5 mg-acetaminophen 1 tab PO Q8H PRN pain #12 tabs 01/20/24 08/24/24 08/30/24 Rx 325 mg tablet magnesium oxide 500 mg PO DAILY 08/24/24 08/24/24 08/29/24 History ondansetron HCl 8 mg tablet 8 mg PO Q8H PRN Nausea And Vomiting 08/24/24 08/24/24 08/19/24 History potassium 99 mg tablet 99 mg PO DAILY 08/24/24 08/24/24 08/29/24 History Allergies Allergy/AdvReac Type Severity Reaction Status Date / Time prochlorperazine (From Allergy Intermediate ADR-Irritab Verified 08/11/24 11:04 Compazine) le Current Medications Generic Name Dose Route Start Last Admin Trade Name Freq PRN Reason Stop Dose Admin Sodium Chloride 1,000 mls @ 30 mls/hr 08/30/24 07:15 08/30/24 12:54 Sodium Chloride 0.9% IV 08/31/24 07:14 0 mls/hr .Q24H LOC Infusion PFSH Anesthesia Medical History (Updated 08/11/24 @ 11:30 by Dorian Campos MD) Renal mass Basal cell carcinoma (BCC) Chronic right shoulder pain Chronic neck pain Constipation Diverticulosis of colon Generalized anxiety disorder Cirrhosis of liver History of past hepatitis C that was treated, 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 Cervical radiculopathy Herniation of left side of L4-L5 intervertebral disc HTN (hypertension) Depression Degenerative disk disease 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
--- NOTE | 2024-08-30 13:02 | W.PM.OPSUD ---
Surgery/Procedure H&P Update DATE OF PROCEDURE: August 30, 2024 DATE H&P PERFORMED: 08/11/24 H&P UPDATE INFORMATION: I have reviewed H&P completed within last 30 days, I have examined patient prior to procedure and No changes to prior documentation PREOP DIAGNOSIS: HB, change in bowel habits PLANNED PROCEDURE: Operation Date: 08/30/24 13:30 Proposed Procedures p EGD [id number] R12 R19.4(Not Applicable) - Dorian Campos MD s Colonoscopy(Not Applicable) - Dorian Campos MD
[2024-08-30 13:43] VITALS: BP 126/67; PULSE 76; RESP 18; TEMP 36.2; O2SAT 99
[2024-08-30 13:50] VITALS: BP 134/67; PULSE 68; RESP 18; TEMP 36.1; O2SAT 98
--- NOTE | 2024-08-30 14:18 | ANE.PACU2 ---
Inpatient post-anesthesia follow up: Airway intact: Yes Vital signs: Temperature 97 F Pulse Rate 68 Respiratory Rate 18 Blood Pressure 134/67 Pulse Oximetry 98 Oxygen Delivery Me thod Room Air Oxygen Flow Rate Fraction of Inspir ed Oxygen Hydration adequate: Yes Nausea and vomiting: No Pain level: 1 Mental status: Baseline
--- NOTE | 2024-08-30 14:59 | SUR.OPER ---
Connected polyp trap and inserted cold snare into scope. Dr. Campos decided not to remove polyps upon determining pt would need referral to GI to complete colonoscopy.
== END 2024-08-30 14:06 | disposition home or self-care (01) ==
PROVIDERS: PCP Family Medicine; Visit Provider Student in an Organized Health Care Education/Training Program
PROC: 0DJ08ZZ Inspection of Upper Intestinal Tract, Via Natural or Artificial Opening Endoscopic (ICD-10-PCS; principal; 2024-08-30 13:30)
PROC: 0DJD8ZZ Inspection of Lower Intestinal Tract, Via Natural or Artificial Opening Endoscopic (ICD-10-PCS; CPT 45330; 2024-08-30 13:30)
DX: K62.1 Rectal polyp (principal); R19.4 Change in bowel habit; I10 Essential (primary) hypertension; K74.60 Unspecified cirrhosis of liver; Z86.73 Personal history of transient ischemic attack (TIA), and cerebral infarction without residual deficits; Z79.899 Other long term (current) drug therapy; F17.210 Nicotine dependence, cigarettes, uncomplicated; K29.50 Unspecified chronic gastritis without bleeding; Q43.8 Other specified congenital malformations of intestine; Z53.8 Procedure and treatment not carried out for other reasons
CPT/HCPCS: 43239; 45378; 88305; 88342; J2704; J7030; J9999

== ENCOUNTER 2024-09-16 21:29 | Emergency (ER) | payer MEDICARE, MEDICAID, SELFPAY ==
[2024-09-16 21:30] VITALS: BP 141/77; PULSE 94; RESP 18; TEMP 37.2; O2SAT 97
--- NOTE | 2024-09-16 21:49 | W.ED.ABDPA2 ---
HPI - Abdominal Pain General: Chief Complaint: Abdominal Pain Stated Complaint: abdomen pain Time Seen by Provider: 09/16/24 21:36 Source: patient Mode of arrival: EMS Limitations: no limitations History of Present Illness: 64yo female presents via EMS for evaluation of lower abdominal pain that radiates to her back. Patient reports that it starts on the left lower abdomen/pelvic area and goes across to the right and into the back. She states it started yesterday evening. Reports she recently attempted a colonoscopy, but they could not finish completely due to her bowel being twisted . Patient states her gallbladder was removed 1 year ago. She also reports she has a history of cirrhosis of the liver, but does not yet see a carburetor mechanic. Patient did take hydrocodone at 1500 today and was given 100 mcg fentanyl and 4 mg Zofran en route via EMS. Patient denies fever, chills, cough, congestion, vomiting. Associated Symptoms: Reports nausea; Denies chills, fever(s) and vomiting Related Data Home Medications ?Medication ?Instructions ?Recorded ?Confirmed amlodipine 10 mg tablet 10 mg PO QPM 03/05/23 08/24/24 escitalopram oxalate 20 mg tablet 20 mg PO QPM 12/07/23 08/24/24 magnesium oxide 500 mg PO DAILY 08/24/24 08/24/24 ondansetron HCl 8 mg tablet 8 mg PO Q8H PRN Nausea And Vomiting 08/24/24 08/24/24 potassium 99 mg tablet 99 mg PO DAILY 08/24/24 08/24/24 Previous Rx's ?Medication ?Instructions ?Recorded pantoprazole 40 mg tablet,delayed 40 mg PO QPM #90 tabs 01/05/24 release amoxicillin 875 mg-potassium 1 tab PO Q8H 5 days #15 tabs 09/17/24 clavulanate 125 mg tablet hydrocodone 5 mg-acetaminophen 325 1 tab PO Q8H PRN pain #9 tabs 09/17/24 mg tablet Allergies Allergy/AdvReac Type Severity Reaction Status Date / Time prochlorperazine (From Allergy Intermediate ADR-Irritab Verified 08/11/24 11:04 Compazine) le Review of Systems Const: Denies: fever(s), chills or body aches Card: Denies: chest pain Resp: Denies: dyspnea GI: Reports: abdominal pain and nausea; Denies: vomiting : Denies: flank pain or difficulty voiding [facility] ED PFSH: Medical History (Updated 09/17/24 @ 00:30 by HERNESTO Mejia) Renal mass Basal cell carcinoma (BCC) Chronic right shoulder pain Chronic neck pain Constipation Diverticulosis of colon Generalized anxiety disorder Cirrhosis of liver History of past hepatitis C that was treated, 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 Cervical radiculopathy Herniation of left side of L4-L5 intervertebral disc HTN (hypertension) Depression Degenerative disk disease 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, 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 Surgical History History of hysterectomy S/P TIPS (transjugular intrahepatic portosystemic shunt) History of neck surgery Family History Mother Heart problem Brother Heart problem Denies family history of Pancreatitis Social History Smoking and tobacco/nicotine status: current every day tobacco/nicotine user cigarettes [ Other cigarette details: 4-5 cigarettes per day] Second hand smoke exposure: Yes Alcohol intake: never Substance/Drug Use: never Physical Exam Const: COMMON NORMALS: no acute distress, patient oriented x3, healthy appearing and alert GENERAL APPEARANCE: cooperative ORIENTATION/CONSCIOUSNESS: Yes awake OTHER: Patient is laying reclined on the stretcher no acute distress. She is able to give history with no difficulty. She is interactive with exam appropriately. No family at bedside at time of exam HENMT: COMMON NORMALS: normocephalic HEAD & SCALP: normocephalic Chest: CHEST: Yes Symmetrical chest wall rise Resp: COMMON NORMALS: normal respiratory effort and clear to auscultation bilaterally EFFORT & INSPECTION: Yes able to speak in complete sentences AUSCULTATION: clear to auscultation bilaterally Cardio: COMMON NORMALS: regular rate RATE: regular rate GI: COMMON NORMALS: Soft to palpation PALPATION: Yes Soft to palpation, Yes Tenderness to palpation present (GI) Details: LLQ, RLQ and other (suprapubic), No Guarding due to palpation present (GI) and No Rigid due to palpation Extremity: COMMON NORMALS: full ROM NARRATIVE EXTREMITY EXAM: MAEW Neuro: COMMON NORMALS: patient oriented x3 SENSORIUM/ORIENTATION: Yes alert Course Vital Signs: Vital signs: Vital Signs Temperature 98.9 F 09/16/24 21:30 Pulse Rate 92 09/16/24 23:52 Respiratory Rate 18 09/16/24 22:10 Blood Pressure 116/75 09/16/24 23:52 Pulse Oximetry 95 09/16/24 23:52 Oxygen Delivery Me thod Room Air 09/16/24 21:30 MDM - Abdominal Pain Medical Decision Making 64yo female presents via EMS for evaluation of lower abdominal pain that radiates to her back. Patient reports that it starts on the left lower abdomen/pelvic area and goes across to the right and into the back. She states it started yesterday evening. Reports she recently attempted a colonoscopy, but they could not finish completely due to her bowel being twisted . Patient states her gallbladder was removed 1 year ago. She also reports she has a history of cirrhosis of the liver, but does not yet see a carburetor mechanic. Patient did take hydrocodone at 1500 today and was given 100 mcg fentanyl and 4 mg Zofran en route via EMS. Patient denies fever, chills, cough, congestion, vomiting. Patient is nontoxic in appearance. Vital signs are stable. Chart review reveals patient does have a history of chronic abdominal pain. No leukocytosis, white blood cell count noted to be 7.73. Patient's hemoglobin is 9.2 where her previous was 12.3 on 02/02/2024. No significant electrolyte, renal, or hepatic abnormalities noted. UA with 2+ blood, 1+ bilirubin, 4+ urobilinogen, negative for bacteria. Contrasted CTAP reveals acute sigmoid diverticulitis with no pneumoperitoneum or abscess formation. Cirrhotic liver morphology with the sequela of portal hypertension and small amount of ascites. Discussed these findings with patient. Patient is stable for discharge. Will begin treatment of diverticulitis with Augmentin, first dose provided while in the emergency department. Prescription of Augmentin and hydrocodone provided, sedation precautions provided as well. Recommend she follow-up with primary care, call Thursday with an update of symptoms and to discuss a recheck. Return precautions provided. Patient states understanding and has no further questions or concerns at this time. Differential Diagnosis Likely abdominal pain, calculus of kidney, constipation and diverticulitis Medical Records I reviewed the patient's medical records. Lab Data I reviewed the patient's lab results. 09/16/24 21:51 09/16/24 21:51 Labs/Radiology: Radiology Impressions Abdomen/Pelvis CT 09/16/24 22:52 IMPRESSION: 1. Acute sigmoid diverticulitis. No pneumoperitoneum or abscess formation. 2. Circumferential bladder wall thickening, which may be reactive due to adjacent inflammatory changes within the pelvis or can represent cystitis. 3. Cirrhotic liver morphology with sequela of portal hypertension including gastroesophageal varices and small amount of ascites. 4. Mildly enlarged gastrohepatic , rudy hepatic and portacaval lymph nodes, which may be reactive in setting of cirrhosis. COMMENTS: Consistent with the [place] [employer]'s Incidental Findings Committee white paper (J Am Richy Radiol 2018): Any incidental renal lesion less than 1 cm or classified as too small to characterize, or any incidental cystic renal lesion characterized as simple-appearing, is likely benign. No follow-up imaging is recommended for these lesions per consensus recommendations based on imaging criteria. Laboratory Results WBC 7.73 10^3/uL (3.29-11.43) 09/16/24 21:51 RBC 3.97 10^6/uL (3.85-5.65) 09/16/24 21:51 Hgb 9.20 g/dL (11.27-16.99) L 09/16/24 21:51 Hct 29.8 % (36-47) L 09/16/24 21:51 MCV 75.1 fl (85-98) L 09/16/24 21:51 MCH 23.2 pg (27-33) L 09/16/24 21:51 MCHC 30.9 g/dL (30-55) 09/16/24 21:51 RDW 15.4 % (12.1-15.1) H 09/16/24 21:51 Plt Count 169 10^3/cmm (157-399) 09/16/24 21:51 MPV Not Reportable 09/16/24 21:51 Neut % (Auto) 74.0 % 09/16/24 21:51 Lymph % (Auto) 14.9 % 09/16/24 21:51 [place] % (Auto) 8.0 % 09/16/24 21:51 Eos % (Auto) 2.3 % 09/16/24 21:51 Baso % (Auto) 0.4 % 09/16/24 21:51 Neut # (Auto) 5.72 10^3/uL (1.8-7.7) 09/16/24 21:51 Lymph # (Auto) 1.2 10^3/uL (0.8-4.8) 09/16/24 21:51 [place] # (Auto) 0.6 10^3/uL (0.2-0.9) 09/16/24 21:51 Eos # (Auto) 0.2 10^3/uL (0.0-0.8) 09/16/24 21:51 Baso # (Auto) 0.0 10^3/uL (0.0-0.1) 09/16/24 21:51 Nucleated RBC % (auto) 0 % 09/16/24 21: Nucleated RBCs # 0.0 /100WBC 09/16/24 21:51 Sodium 134 mmol/L (136-145) L 09/16/24 21:51 Potassium 4.1 mmol/L (3.5-5.1) 09/16/24 21:51 Chloride 101 mmol/L (98-107) 09/16/24 21:51 Carbon Dioxide 23 mmol/L (22-29) 09/16/24 21:51 Anion Gap 14.1 (5-19) 09/16/24 21:51 BUN 8 mg/dL (8-23) 09/16/24 21:51 Creatinine 0.7 mg/dL (0.5-0.9) 09/16/24 21:51 GFR Calculation 84.0 mL/min (90-130) L 09/16/24 21:51 Glucose 103 mg/dL (65-115) 09/16/24 21:51 Calculated Osmolality 277 mOsm/kg (285-295) L 09/16/24 21:51 Calcium 8.6 mg/dL (8.5-10.5) 09/16/24 21:51 Total Bilirubin 0.5 mg/dL (0.15-1.2) 09/16/24 21:51 AST 21 U/L (0-32) 09/16/24 21:51 ALT 9 U/L (0-33) 09/16/24 21:51 Alkaline Phosphatase 63 U/L (35-105) 09/16/24 21:51 Total Protein 7.2 g/dL (6.6-8.7) 09/16/24 21:51 Albumin 3.8 g/dL (3.5-5.2) 09/16/24 21:51 Globulin 3.4 g/dL (1.3-4.6) 09/16/24 21:51 Lipase 24 U/L (13-60) 09/16/24 21:51 Urine Color Dark yellow (Yellow) A 09/16/24 22:24 Urine Appearance Clear (CLEAR) 09/16/24 22:24 Urine pH 6 (5-7) 09/16/24 22:24 Ur Specific [place] 1.020 (1.005-1.030) 09/16/24 22:24 Urine Protein Neg (Negative) 09/16/24 22:24 Urine Glucose (UA) Norm (Normal) 09/16/24 22:24 Urine Ketones Negative (Negative) 09/16/24 22:24 Urine Blood 2+ (Negative) H 09/16/24 22:24 Urine Nitrate Negative (Negative) 09/16/24 22:24 Urine Bilirubin 1+ (Negative) H 09/16/24 22:24 Urine Urobilinogen 4 mg/dL (Negative) H 09/16/24 22:24 Ur Leukocyte Esterase Negative (Negative) 09/16/24 22:24 Urine RBC 3-5 /hpf (0-2) 09/16/24 22:24 Urine WBC 0-5 /hpf (0-5) 09/16/24 22:24 Ur Squamous Epith Cells 0-5 /hpf (0-5) 09/16/24 22:24 Amorphous Sediment Not Reportable 09/16/24 22:24 Urine Bacteria None seen /hpf (NONE) 09/16/24 22:24 Hyaline Casts 0.40 /lpf 09/16/24 22:24 All radiology interpretation(s) finalized by discharge Discharge Plan Discharge Patient Disposition: Home Clinical Impression: Sigmoid diverticulitis Cirrhosis of liver Qualifiers: Hepatic cirrhosis type: unspecified hepatic cirrhosis Ascites presence: with ascites Qualified Code(s): K74.60 - Unspecified cirrhosis of liver Condition: Stable Prescriptions: New amoxicillin-pot clavulanate 875-125 mg tablet 1 tab PO Q8H 5 Days Qty: 15 0RF hydrocodone-acetaminophen 5-325 mg tablet 1 tab PO Q8H PRN (Reason: pain) Qty: 9 0RF Discontinued hydrocodone-acetaminophen 7.5-325 mg tablet 1 tab PO Q8H PRN (Reason: pain) Qty: 12 0RF No Action pantoprazole 40 mg tablet,delayed release (DR/EC) 40 mg PO QPM Qty: 90 1RF amlodipine 10 mg tablet 10 mg PO QPM escitalopram oxalate 20 mg tablet 20 mg PO QPM ondansetron HCl 8 mg tablet 8 mg PO Q8H PRN (Reason: Nausea And Vomiting) potassium 99 mg Tablet 99 mg PO DAILY magnesium oxide 500 mg magnesium Tablet 500 mg PO DAILY Discharge Orders: Discharge ED (Routine); Ordered 09/17/24 Ordered By: Navin Pantoja Referrals: Conrad Amaya [Primary Care Provider, Family Practice] Discharge Diet: Advance as tolerated Discharge Activity: Increase activity as tolerated Patient Instructions: Diverticulitis (ED), Opioid Safety Activity Restrictions/Additional Instructions: Augmentin has been sent to the pharmacy to begin treatment of diverticulitis. A short course of pain medication has been sent to your pharmacy as well. Please do not drive or operate heavy machinery while taking pain medication. Please monitor for constipation as that is a very common side effect of pain medication Follow-up with primary care or your ticketing clerk, call Thursday with an update of symptoms and to discuss a recheck Return to the emergency department if any rapid worsening symptoms, onset of fever associated with worsening, and as needed. Print Language: [place] Coding Level of Care Code ED Retail Pharmacy Technician for Nadia Poole
[2024-09-16 22:03] LABS: Basophils % 0.4 %; Eosinophils # 0.2 10^3/uL (0.0-0.8); Eosinophils % 2.3 %; Hematocrit 29.8 % (36-47); Lymphocytes # 1.2 10^3/uL (0.8-4.8); Lymphocytes % 14.9 %; Mean Corpuscular HGB Conc 30.9 g/dL (30-55); Mean Corpuscular Hemoglobin 23.2 pg (27-33); Mean Corpuscular Volume 75.1 fl (85-98); Monocytes # 0.6 10^3/uL (0.2-0.9); Neutrophils # 5.72 10^3/uL (1.8-7.7); Nucleated Red Blood Cells % 0 %; Platelet Count 169 10^3/cmm (157-399); Red Blood Count 3.97 10^6/uL (3.85-5.65); Red Cell Distribution Width 15.4 % (12.1-15.1); White Blood Count 7.73 10^3/uL (3.29-11.43)
[2024-09-16 22:10] VITALS: RESP 18; O2SAT 94
[2024-09-16] MEDS: morphine 4 mg/mL SDV 1 mL IVP (22:10)
[2024-09-16 22:19] LABS: Alanine Aminotransferase 9 U/L (0-33); Albumin Level 3.8 g/dL (3.5-5.2); Alkaline Phosphatase 63 U/L (35-105); Blood Urea Nitrogen 8 mg/dL (8-23); Calcium 8.6 mg/dL (8.5-10.5); Carbon Dioxide 23 mmol/L (22-29); Chloride 101 mmol/L (98-107); Globulin 3.4 g/dL (1.3-4.6); Glucose 103 mg/dL (65-115); Lipase 24 U/L (13-60); Osmolality Calculated 277 mOsm/kg (285-295); Sodium 134 mmol/L (136-145); Total Bilirubin 0.5 mg/dL (0.15-1.2); Total Protein 7.2 g/dL (6.6-8.7)
[2024-09-16 22:20] LABS: Anion Gap 14.1 (5-19); Aspartate Amino Transferase 21 U/L (0-32); Potassium 4.1 mmol/L (3.5-5.1)
[2024-09-16 22:35] LABS: Bacteria Urine None Seen /hpf; Squamous Epithelial Cell Urine 0-5 /hpf (0-5); WBC Urine 0-5 /hpf (0-5)
[2024-09-16 22:37] LABS: Add Urine Microscopic? YES; Blood Urine 2+ (Negative); Glucose Urine UA Norm (Normal); Ketones Urine Negative (Negative); Nitrate Urine Negative (Negative); Protein Urine Neg (Negative); Urine Appearance Clear (CLEAR); Urine Color Dark Yellow (Yellow); Urobilinogen Urine 4 mg/dL (Negative); pH Urine 6 (5-7)
[2024-09-16 22:38] LABS: Bilirubin Urine 1+ (Negative); Leukocyte Esterase Urine Negative (Negative)
--- NOTE | 2024-09-16 22:52 | CTR_ITS ---
PROCEDURE INFORMATION: Exam: CT Abdomen And Pelvis With Contrast Exam date and time: 09/16/2024 10:58 PM Age: 64 years old Clinical indication: Abdominal pain; Other: Llq; Prior surgery; Surgery date: 6+ months; Surgery type: Gb, appy, hysterectomy; Additional info: Llq abd pain TECHNIQUE: Imaging protocol: Computed tomography of the abdomen and pelvis with contrast. Radiation optimization: All CT scans at this facility use at least one of these dose optimization techniques: automated exposure control; mA and/or kV adjustment per patient size (includes targeted exams where dose is matched to clinical indication); or iterative reconstruction. Contrast material: OMNI 350; Contrast volume: 100 ml; Contrast route: INTRAVENOUS (IV); COMPARISON: CT abdomen pelvis w con* [id number] 01/20/2024 2:39 PM RADIATION DOSE METRICS: Total DLP (mGy-cm): 759.56 FINDINGS: Lungs: Linear atelectasis within right lower lobe. Liver: Cirrhotic liver morphology. Gallbladder and biliary ducts: Status post cholecystectomy. Pancreas: Normal. No ductal dilation. Spleen: Indeterminate subcentimeter splenic hypodensity, which may represent a complex cyst versus hemangioma. Mild splenomegaly. Adrenal glands: Normal. No mass. Kidneys and ureters: Subcentimeter bilateral renal hypodensities. These are not completely characterized but are likely benign cysts. In the absence of risk factors, no further workup is recommended. No hydronephrosis or obstructing calculi. Stomach and bowel: Scattered colonic diverticulosis. Extensive fat stranding adjacent to sigmoid colon. Appendix: No evidence of appendicitis. Intraperitoneal space: Small amount of abdominopelvic ascites. Vasculature: Gastroesophageal varices. Atherosclerosis of infrarenal abdominal aorta. Lymph nodes: Few prominent mildly enlarged gastrohepatic, rudy hepatic and portacaval lymph nodes. Urinary bladder: Circumferential bladder wall thickening. Reproductive: Hysterectomy. Bones/joints: No acute osseous abnormality. No aggressive osseous lesions. Soft tissues: Unremarkable. CT/CT abdomen pelvis w con* [id number] IMPRESSION: 1. Acute sigmoid diverticulitis. No pneumoperitoneum or abscess formation. 2. Circumferential bladder wall thickening, which may be reactive due to adjacent inflammatory changes within the pelvis or can represent cystitis. 3. Cirrhotic liver morphology with sequela of portal hypertension including gastroesophageal varices and small amount of ascites. 4. Mildly enlarged gastrohepatic , rudy hepatic and portacaval lymph nodes, which may be reactive in setting of cirrhosis. COMMENTS: Consistent with the [place] [employer]'s Incidental Findings Committee white paper (J Am Richy Radiol 2018): Any incidental renal lesion less than 1 cm or classified as too small to characterize, or any incidental cystic renal lesion characterized as simple-appearing, is likely benign. No follow-up imaging is recommended for these lesions per consensus recommendations based on imaging criteria.
[2024-09-16] MEDS: iohexol 350 mg/mL 500 mL Btl (per mL) IV (23:02)
[2024-09-16 23:22] VITALS: PULSE 88; O2SAT 95
[2024-09-16 23:52] VITALS: BP 116/75; PULSE 92; O2SAT 95
[2024-09-17] MEDS: amoxicillin-clav 875-125 mg Tablet 1 TAB PO (00:24)
[2024-09-17] MEDS: HYDROcodone-acetaminophen 5-325 mg Tablet 1 TAB PO (00:27)
[2024-09-17 00:49] VITALS: BP 118/73; PULSE 87; O2SAT 95
== END 2024-09-17 00:51 | disposition home or self-care (01) ==
PROVIDERS: Emergency Provider Nurse Practitioner; PCP Family Medicine
DX: K57.92 Diverticulitis of intestine, part unspecified, without perforation or abscess without bleeding (principal); K74.60 Unspecified cirrhosis of liver; F17.210 Nicotine dependence, cigarettes, uncomplicated; I10 Essential (primary) hypertension
CPT/HCPCS: 74177; 80053; 81001; 83690; 85025; 96374; 99285; J2270; J9999

== ENCOUNTER 2024-09-30 16:54 | Emergency (ER) | payer MEDICARE, MEDICAID, SELFPAY ==
[2024-09-30 17:27] VITALS: BP 148/88; PULSE 68; RESP 16; TEMP 36.7; O2SAT 99; BMI 25.7
--- NOTE | 2024-09-30 19:02 | W.ED.ABDPA2 ---
HPI - Abdominal Pain General: Chief Complaint: Abdominal Pain Stated Complaint: abd pain Time Seen by Provider: 09/30/24 18:34 History of Present Illness: Stella Covarrubias presents with pain in the right upper abdomen and across the top of the abdomen for the past 3 days. The patient has a history of hepatitis C (now resolved), liver problems, pancreatitis, and recent diverticulitis. The patient reports pain on the right side and across the whole top part of the abdomen. The pain has been present for 3 days. Associated symptoms include diarrhea, which the patient describes as yellowish. The patient denies nausea, vomiting, blood in stool or vomit, constipation, pain with urination, shortness of breath, or chest pain. The patient recently had diverticulitis, for which antibiotics were prescribed. The pain from diverticulitis, which was located lower in the abdomen, has improved. The patient reports a history of pancreatitis and liver problems, which were attributed to jose j hepatitis C from a needle stick injury while working. After several rounds of treatment, the hepatitis C was eventually cleared, but not before causing significant liver damage. The patient has had their gallbladder removed, ruling out the possibility of a gallbladder attack. No recent healthcare interactions or changes in overall health status were mentioned. Related Data Home Medications ?Medication ?Instructions ?Recorded ?Confirmed amlodipine 10 mg tablet 10 mg PO QPM 03/05/23 08/24/24 escitalopram oxalate 20 mg tablet 20 mg PO QPM 12/07/23 08/24/24 magnesium oxide 500 mg PO DAILY 08/24/24 08/24/24 ondansetron HCl 8 mg tablet 8 mg PO Q8H PRN Nausea And Vomiting 08/24/24 08/24/24 potassium 99 mg tablet 99 mg PO DAILY 08/24/24 08/24/24 Previous Rx's ?Medication ?Instructions ?Recorded pantoprazole 40 mg tablet,delayed 40 mg PO QPM #90 tabs 01/05/24 release hydrocodone 5 mg-acetaminophen 325 1 tab PO Q8H PRN pain #9 tabs 09/17/24 mg tablet Allergies Allergy/AdvReac Type Severity Reaction Status Date / Time prochlorperazine (From Allergy Intermediate ADR-Irritab Verified 09/30/24 17:31 Compazine) le Review of Systems General: Reports: 10 or more systems reviewed and unremarkable except in HPI and below PFSH ED PFSH: Medical History (Updated 09/30/24 @ 22:20 by Cory Roman DO) Renal mass Basal cell carcinoma (BCC) Chronic right shoulder pain Chronic neck pain Constipation Diverticulosis of colon Generalized anxiety disorder Cirrhosis of liver History of past hepatitis C that was treated, 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 Cervical radiculopathy Herniation of left side of L4-L5 intervertebral disc HTN (hypertension) Depression Degenerative disk disease 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, 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 Surgical History History of hysterectomy S/P TIPS (transjugular intrahepatic portosystemic shunt) History of neck surgery Family History Mother Heart problem Brother Heart problem Denies family history of Pancreatitis Social History Smoking and tobacco/nicotine status: current every day tobacco/nicotine user cigarettes [ Other cigarette details: 4-5 cigarettes per day] Second hand smoke exposure: Yes Alcohol intake: never Substance/Drug Use: never Physical Exam Const: COMMON NORMALS: no acute distress, patient oriented x3, healthy appearing, alert and well nourished HENMT: COMMON NORMALS: normocephalic HEAD & SCALP: normocephalic Eye: COMMON NORMALS: EOMs intact bilaterally Neck/C-Spine: COMMON NORMALS: full ROM and supple Resp: COMMON NORMALS: normal respiratory effort, No retractions and clear to auscultation bilaterally AUSCULTATION: clear to auscultation bilaterally Cardio: COMMON NORMALS: regular rate, regular rhythm, No gallops present (Cardio) and No murmurs present (Cardio) RATE: regular rate RHYTHM: regular rhythm GI: COMMON NORMALS: Soft to palpation INSPECTION: Yes normal to inspection PALPATION: Yes Soft to palpation, Yes Tenderness to palpation present (GI) (Diffusely), No Guarding due to palpation present (GI) and No Rebound tenderness present Extremity: GENERAL: Yes normal exam except as noted Neuro: COMMON NORMALS: patient oriented x3 SENSORIUM/ORIENTATION: Yes alert Skin: COMMON NORMALS: no rashes or lesions noted GENERAL SKIN EXAM: no rashes or lesions noted Course Vital Signs: Vital signs: Vital Signs Temperature 98.1 F 09/30/24 17:27 Pulse Rate 67 09/30/24 22:42 Respiratory Rate 16 09/30/24 22:26 Blood Pressure 137/89 09/30/24 22:42 Pulse Oximetry 97 09/30/24 22:42 Oxygen Delivery Me thod Room Air 09/30/24 17:27 MDM - Abdominal Pain Medical Decision Making 64-year-old female presents to the emergency department for evaluation of abdominal pain. Patient has a fairly extensive past medical history with hepatitis C and pancreatitis as well as diverticulitis. Her laboratory evaluation was globally unremarkable with anemia that is improving since earlier this month. Her CT scan did not show anything acute. The exact etiology of her pain is unclear at this time. However, I would favor viral etiology. Patient's IV did infiltrate during the CT scan with contrast. She was provided ice for the discomfort. Return precautions were discussed and the patient was discharged home in stable condition. Differential Diagnosis Likely abdominal pain, acute appendicitis, calculus of kidney, constipation, diverticulitis, gastroenteritis, pancreatitis and small bowel obstruction Lab Data 09/30/24 18:17 09/30/24 18:17 Labs/Radiology: Radiology Impressions Abdomen/Pelvis CT 09/30/24 19:08 IMPRESSION: 1. Improving sigmoid diverticulitis compared with prior. Minimal residual inflammatory stranding and wall thickening in the sigmoid colon. No evidence perforation. 2. Sequelae of cirrhosis and portal hypertension as above. 3.Other incidental and/or chronic findings as detailed above. Laboratory Results WBC 5.19 10^3/uL (3.29-11.43) 09/30/24 18:17 RBC 4.42 10^6/uL (3.85-5.65) 09/30/24 18:17 Hgb 9.90 g/dL (11.27-16.99) L 09/30/24 18:17 Hct 33.2 % (36-47) L 09/30/24 18:17 MCV 75.1 fl (85-98) L 09/30/24 18:17 MCH 22.4 pg (27-33) L 09/30/24 18:17 MCHC 29.8 g/dL (30-55) L 09/30/24 18:17 RDW 15.4 % (12.1-15.1) H 09/30/24 18:17 Plt Count 212 10^3/cmm (157-399) 09/30/24 18:17 MPV 12.6 fL (7.4-10.4) H 09/30/24 18:17 Neut % (Auto) 53.2 % 09/30/24 18:17 Lymph % (Auto) 35.8 % 09/30/24 18:17 Tillman % (Auto) 7.7 % 09/30/24 18:17 Eos % (Auto) 2.7 % 09/30/24 18:17 Baso % (Auto) 0.4 % 09/30/24 18:17 Neut # (Auto) 2.76 10^3/uL (1.8-7.7) 09/30/24 18:17 Lymph # (Auto) 1.9 10^3/uL (0.8-4.8) 09/30/24 18:17 Tillman # (Auto) 0.4 10^3/uL (0.2-0.9) 09/30/24 18:17 Eos # (Auto) 0.1 10^3/uL (0.0-0.8) 09/30/24 18:17 Baso # (Auto) 0.0 10^3/uL (0.0-0.1) 09/30/24 18:17 Nucleated RBC % (auto) 0 % 09/30/24 18:17 Nucleated RBCs # 0.0 /100WBC 09/30/24 18:17 Sodium 142 mmol/L (136-145) 09/30/24 18:17 Potassium 4.2 mmol/L (3.5-5.1) 09/30/24 18:17 Chloride 107 mmol/L (98-107) 09/30/24 18:17 Carbon Dioxide 21 mmol/L (22-29) L 09/30/24 18:17 Anion Gap 18.2 (5-19) 09/30/24 18:17 BUN 8 mg/dL (8-23) 09/30/24 18:17 Creatinine 0.6 mg/dL (0.5-0.9) 09/30/24 18:17 GFR Calculation 100.3 mL/min (90-130) 09/30/24 18:17 Glucose 69 mg/dL (65-115) 09/30/24 18:17 Calculated Osmolality 291 mOsm/kg (285-295) 09/30/24 18:17 Calcium 9.2 mg/dL (8.5-10.5) 09/30/24 18:17 Total Bilirubin 0.4 mg/dL (0.15-1.2) 09/30/24 18:17 AST 19 U/L (0-32) 09/30/24 18:17 ALT 10 U/L (0-33) 09/30/24 18:17 Alkaline Phosphatase 64 U/L (35-105) 09/30/24 18:17 Total Protein 7.4 g/dL (6.6-8.7) 09/30/24 18:17 Albumin 4.3 g/dL (3.5-5.2) 09/30/24 18:17 Globulin 3.1 g/dL (1.3-4.6) 09/30/24 18:17 Lipase 53 U/L (13-60) 09/30/24 18:17 Urine Color Yellow (Yellow) 09/30/24 19:10 Urine Appearance Clear (CLEAR) 09/30/24 19:10 Urine pH 7.0 (5-7) 09/30/24 19:10 Ur Specific [place] 1.008 (1.005-1.030) 09/30/24 19:10 Urine Protein Negative (Negative) 09/30/24 19:10 Urine Glucose (UA) Negative (Normal) 09/30/24 19:10 Urine Ketones Negative (Negative) 09/30/24 19:10 Urine Blood Negative (Negative) 09/30/24 19:10 Urine Nitrate Negative (Negative) 09/30/24 19:10 Urine Bilirubin Negative (Negative) 09/30/24 19:10 Urine Urobilinogen 1.0 mg/dL (Negative) 09/30/24 19:10 Ur Leukocyte Esterase Negative (Negative) 09/30/24 19:10 Urine RBC 0-2 /hpf (0-2) 09/30/24 19:10 Urine WBC 0-5 /hpf (0-5) 09/30/24 19:10 Ur Squamous Epith Cells 0-5 /hpf (0-5) 09/30/24 19:10 Amorphous Sediment Not Reportable 09/30/24 19:10 Urine Bacteria None seen /hpf (NONE) 09/30/24 19:10 Hyaline Casts 0-4 /lpf H 09/30/24 19:10 All radiology interpretation(s) finalized by discharge Discharge Plan Discharge Patient Disposition: Home Clinical Impression: Nausea & vomiting Qualifiers: Vomiting type: unspecified Qualified Code(s): R11.2 - Nausea with vomiting, unspecified Abdominal pain Qualifiers: Abdominal location: right upper quadrant Qualified Code(s): R10.11 - Right upper quadrant pain Condition: Stable Prescriptions: No Action pantoprazole 40 mg tablet,delayed release (DR/EC) 40 mg PO QPM Qty: 90 1RF amlodipine 10 mg tablet 10 mg PO QPM hydrocodone-acetaminophen 5-325 mg tablet 1 tab PO Q8H PRN (Reason: pain) Qty: 9 0RF escitalopram oxalate 20 mg tablet 20 mg PO QPM ondansetron HCl 8 mg tablet 8 mg PO Q8H PRN (Reason: Nausea And Vomiting) potassium 99 mg Tablet 99 mg PO DAILY magnesium oxide 500 mg magnesium Tablet 500 mg PO DAILY Discharge Orders: Discharge ED (Routine); Ordered 09/30/24 Ordered By: Cory Roman Referrals: Conrad Amaya [Primary Care Provider, Family Practice] Discharge Diet: Advance as tolerated Discharge Activity: Increase activity as tolerated Patient Instructions: Abdominal Pain (ED), Opioid Safety, Pain Management Activity Restrictions/Additional Instructions: Please return to the emergency department with any new or worsening symptoms. Follow-up with your primary care doctor for any persistent symptoms Print Language: Hebrew Coding Level of Care Code ED Superintendent General for Nadia Poole
--- NOTE | 2024-09-30 19:08 | CTR_ITS ---
PROCEDURE INFORMATION: Exam: CT Abdomen And Pelvis With Contrast Exam date and time: 09/30/2024 7:39 PM Age: 64 years old Clinical indication: Abdominal pain; Generalized; Prior surgery; Surgery date: 6+ months; Surgery type: Gb. Appy. Hysterectomy; C/O diffuse abd pain. Positive for sigmoid diverticulitis on 09/16/2024. History of cirrhosis. ; Additional info: Diffuse abdominal tenderness with most severe in the right u TECHNIQUE: Imaging protocol: Computed tomography of the abdomen and pelvis with contrast. Radiation optimization: All CT scans at this facility use at least one of these dose optimization techniques: automated exposure control; mA and/or kV adjustment per patient size (includes targeted exams where dose is matched to clinical indication); or iterative reconstruction. Contrast material: OMNI 350; Contrast volume: 100 ml; Contrast route: INTRAVENOUS (IV); COMPARISON: CT abdomen pelvis w con* [id number] 09/16/2024 10:58 PM RADIATION DOSE METRICS: Total DLP (mGy-cm): 675.9 FINDINGS: Lungs: Visualized lung bases are clear. Heart: Partially imaged moderate mitral annular calcifications. Diaphragm: There is a small fatty hiatal hernia. Liver: Nodular contour of the liver consistent with provided history of cirrhosis. Gallbladder and biliary ducts: The patient is status post cholecystectomy. Pancreas: Normal appearance of the pancreas. No ductal dilation. Spleen: Within the inferior spleen there is a small 0.8 cm hypodense lesion unchanged from recent prior. Spleen appears mildly enlarged measuring approximately 14 cm in length. Adrenal glands: Normal appearance of both adrenal glands. Kidneys and ureters: Sub cm right renal hypodensities in tiny too small to characterize left renal hypodensities, likely representing small cysts, unchanged prior. No hydronephrosis or nephrolithiasis bilaterally. Stomach and bowel: Normal appearance of the small bowel without luminal dilation suggested. A prominent inflammatory change seen on prior comparison from the sigmoid diverticulitis is nearly resolved with only minimal residual phlegm a jarred stranding present. There is persistent wall thickening in the sigmoid. No evidence of free air or abscess formation to suggest perforation. Appendix: No evidence of appendicitis. Intraperitoneal space: Minimal abdominal and pelvic ascites. Vasculature: Pelvic calcifications, likely representing incidental phleboliths. There is mild calcific atherosclerotic disease of the abdominal aorta. No evidence of an aneurysm. Small esophageal varices are partially imaged. The portal vein is enlarged measuring approximately 1.9 cm consistent with portal hypertension. Lymph nodes: Unremarkable. No enlarged lymph nodes. Urinary bladder: Normal appearance of the urinary bladder. No intravesicular stone. Reproductive: Patient is status post hysterectomy. Bones/joints: Moderate degenerative change with disc space narrowing at L4-L5. Otherwise mild scattered degenerative changes. No fracture or aggressive osseous lesion. Soft tissues: Small fatty right inguinal hernia. CT/CT abdomen pelvis w con* [id number] IMPRESSION: 1. Improving sigmoid diverticulitis compared with prior. Minimal residual inflammatory stranding and wall thickening in the sigmoid colon. No evidence perforation. 2. Sequelae of cirrhosis and portal hypertension as above. 3.Other incidental and/or chronic findings as detailed above.
[2024-09-30 19:17] LABS: Basophils % 0.4 %; Eosinophils # 0.1 10^3/uL (0.0-0.8); Eosinophils % 2.7 %; Hematocrit 33.2 % (36-47); Lymphocytes # 1.9 10^3/uL (0.8-4.8); Lymphocytes % 35.8 %; Mean Corpuscular HGB Conc 29.8 g/dL (30-55); Mean Corpuscular Hemoglobin 22.4 pg (27-33); Mean Corpuscular Volume 75.1 fl (85-98); Mean Platelet Volume 12.6 fL (7.4-10.4); Monocytes # 0.4 10^3/uL (0.2-0.9); Monocytes % 7.7 %; Neutrophils # 2.76 10^3/uL (1.8-7.7); Neutrophils % 53.2 %; Nucleated Red Blood Cells % 0 %; Platelet Count 212 10^3/cmm (157-399); Red Blood Count 4.42 10^6/uL (3.85-5.65); Red Cell Distribution Width 15.4 % (12.1-15.1); White Blood Count 5.19 10^3/uL (3.29-11.43)
[2024-09-30 19:19] LABS: Bilirubin Urine Negative (Negative); Blood Urine Negative (Negative); Glucose Urine UA Negative (Normal); Ketones Urine Negative (Negative); Leukocyte Esterase Urine Negative (Negative); Nitrate Urine Negative (Negative); Protein Urine Negative (Negative); Specific Gravity, Urine 1.008 (1.005-1.030); Urine Appearance Clear (CLEAR); Urine Color Yellow (Yellow)
[2024-09-30 19:24] LABS: Add Urine Microscopic? YES; Bacteria Urine None Seen /hpf; Hyaline Casts Urine 0-4 /lpf; RBC Urine 0-2 /hpf (0-2); Squamous Epithelial Cell Urine 0-5 /hpf (0-5); WBC Urine 0-5 /hpf (0-5)
[2024-09-30 19:25] VITALS: RESP 18
[2024-09-30] MEDS: ondansetron 2 mg/ML SDV 2 mL 4 MG IVP ×2 (19:25→22:27)
[2024-09-30] MEDS: morphine 4 mg/mL SDV 1 mL IVP ×2 (19:25→22:26)
[2024-09-30 19:34] LABS: Alanine Aminotransferase 10 U/L (0-33); Albumin Level 4.3 g/dL (3.5-5.2); Alkaline Phosphatase 64 U/L (35-105); Anion Gap 18.2 (5-19); Aspartate Amino Transferase 19 U/L (0-32); Blood Urea Nitrogen 8 mg/dL (8-23); Calcium 9.2 mg/dL (8.5-10.5); Carbon Dioxide 21 mmol/L (22-29); Chloride 107 mmol/L (98-107); Creatinine Clr Calc Pharmacy 66.4457; Globulin 3.1 g/dL (1.3-4.6); Glomerular Filtration Rate 100.3 mL/min (90-130); Glucose 69 mg/dL (65-115); Lipase 53 U/L (13-60); Osmolality Calculated 291 mOsm/kg (285-295); Potassium 4.2 mmol/L (3.5-5.1); Sodium 142 mmol/L (136-145); Total Bilirubin 0.4 mg/dL (0.15-1.2); Total Protein 7.4 g/dL (6.6-8.7)
[2024-09-30] MEDS: iohexol 350 mg/mL 500 mL Btl (per mL) IV (19:44)
[2024-09-30 20:39] VITALS: PULSE 64; O2SAT 97
[2024-09-30 22:26] VITALS: RESP 16
[2024-09-30 22:42] VITALS: BP 137/89; PULSE 67; O2SAT 97
== END 2024-09-30 22:33 | disposition home or self-care (01) ==
PROVIDERS: Emergency Provider General Practice; PCP Family Medicine
DX: R11.2 Nausea with vomiting, unspecified (principal); R10.11 Right upper quadrant pain; F17.210 Nicotine dependence, cigarettes, uncomplicated; I10 Essential (primary) hypertension
CPT/HCPCS: 36415; 74177; 80053; 81001; 83690; 85025; 96374; 96375; 96376; 99285; J2270; J2405

== ENCOUNTER → 2024-10-24 10:27 | Outpatient (BNVA) | payer MEDICARE, MEDICAID, SELFPAY | PROVIDERS: PCP Family Medicine; Visit Provider Student in an Organized Health Care Education/Training Program | DX: Z09 Encounter for follow-up examination after completed treatment for conditions other than malignant neoplasm (principal) | CPT/HCPCS: 99213 ==

== ENCOUNTER 2024-11-11 08:09 | Outpatient (CLI) | payer MEDICARE, MEDICAID, SELFPAY ==
--- NOTE | 2024-11-11 08:30 | FL_ITS ---
WS: [id number] Exam: FL barium enema [id number] Date/Time of Exam: 11/11/2024 8:19 AM Reason For Exam: Preliminary survey of the abdomen shows signs of prior cholecystectomy. The colon fills to the cecum. Reflux into the terminal ileum could not be achieved. There is moderate diverticulosis of the sigmoid and lower descending colon. No sign of colonic mass or constricting lesion. There is mild colonic spasm. The colon is nondisplaced. The haustral pattern is well-maintained. FL/FL barium enema [id number] IMPRESSION: 1. Diverticulosis of the sigmoid and lower descending colon. 2. No indication of colonic mass or constricting lesion.
== END 2024-11-11 08:10 | disposition home or self-care (01) ==
LOC: RAD 08:10
PROVIDERS: PCP Family Medicine; Visit Provider Student in an Organized Health Care Education/Training Program
DX: R19.4 Change in bowel habit (principal); R10.9 Unspecified abdominal pain; G89.29 Other chronic pain; K56.41 Fecal impaction; K57.30 Diverticulosis of large intestine without perforation or abscess without bleeding; K58.9 Irritable bowel syndrome, unspecified
CPT/HCPCS: 74270

== ENCOUNTER 2024-11-14 14:01 | Emergency (ER) | payer MEDICARE, MEDICAID, SELFPAY ==
--- OUTSIDE RECORDS SUMMARY | 2020-08-14 06:19 | XMS_ITS | Continuity of Care Document ---
Author Organization [facility] Address [id number] [address] Phone Care Team Providers Care Relocation Associate Name Role Phone Iván Earle AMAYAon Unavailable Unavailable Allergies, Adverse Reactions, Alerts Substance Reaction Status Criticality PROCHLORPERAZINE MALEATE Causes Violence Active No Information PROCHLORPERAZINE EDISYLATE Causes Violence Active No Information prochlorperazine Causes Violence Active No Infor mation Medications Medication Instructions Dosage Effective Dates (start - stop) Status Comments zolpidem 10 mg tablet take 1 tablet by o ral route every day at bedtime 10 MG - Active morphine ER 60 mg tablet,extended release take 1 tablet by oral route every 8 hours 60 MG - Active clonazepam 1 mg tablet take 1 to 2 tabs every night for nerves and sleep - Active Linzess 290 mcg capsule take 1 capsule by oral route every day on an empty stomach at least 30 minutes before 1st meal of the day as needed 290 MCG - Active Voltaren 1 % topical gel apply (2G) by topical route 4 times every day to the affected area(s) as needed - Active famotidine 40 mg tablet take 1 tablet by oral route every day at bedtime 40 MG - Active escitalopram 10 mg tablet take 1 tablet by oral route every day 10 MG - Active amlodipine 10 mg tablet take 1 tablet by oral route every day 10 MG - Active Problems Condition Type Effective Dates (start - stop) Clini jonah Status Comments No Known Problems Procedures Procedure Date X-RAY EXAM OF NECK SPINE, 2-3 views X-RAY EXAM OF LOWER SPINE, 2-3 views Oct OFFICE/OUTPATIENT VISIT, NEW X-RAY EXAM OF NECK SPINE, 2-3 views X-RAY EXAM OF LOWER SPINE, 2-3 views Oct Advance Directives Directive Yes / No Effective Date File Name No Information Encounters Encounter Description Practice Location Reason(s) For Visit Diagnoses Date Provider Providers Copied on Encounter [facility], [id number] [place], [place], [id number], [place] tel:[phone] [facility] No Information 1 Iván Gómez. [address], [place], [place], [id number], [place]. tel:[phone] [facility], [id number], [id number], [place] tel:[phone] Family Medicine F1 CervicalgiaLow back pain 9 Yomaira Tavares. [address], [place], [id number], [place]. tel:[phone] Referring Provider: Chaitanya Burnette, [address] [place], [address] . tel:[phone] OFFICE/OUTPAT IENT VISIT, [facility], [id number], [address], [place] tel:[phone] Family Medicine F1 Establish Care (chief complaint) Back Pain (chief complaint) Liver failure (chief complaint) Neck painChronic midline low back pain without sciaticaOther chronic painHx of hepatitis CInsomnia, unspecified typeDepression, unspecified depression typeChronic liver failure with hepatic comaBleeding esophageal varices, unspecified esophageal varices typeBarrett's esophagus with dysplasia 9 No Information Family History Family Member Type Diagnosis Age At Onset No Information Payers Payer name Insurance type Covered democrat ID Authorchitoa catrachitoon(tori) Gail [place] Medicaid [id number] Social History Type Description Quantity Date Captured Comments Alcohol Use Details Unknown Caffeine Use Details Unknown Tobacco Use Status Smoking Status No Information Sex Female Sexual Orientation Heterosexual Gender Identity Female Chief Complaint And Reason For Visit No Information Reason For Referral Reason For Referral No Information Plan Of Treatment Date Type Action Status Referral Ordered: Referrals: darek gi ordered Referral Ordered: Referrals: PM ordered History Of Present Illness Encounter Date Complaint History Of Prese nt Illness Establish Care Patient States s he needs a Liver Replacement, PM Referral (Chronic Pain) Liver failure PT reports needs referral to GI for liver failure and possible transplant according to doctors in [facility]. Back Pain Additional infor deena: Pt reports chronic back pain, just moved from [place]. 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 Pt reports hx of back and neck surgeries. Functional Status Date Functional Assessmen t No Information Instructions Date Instruction Additional Infor deena Continue medications as prescrib ed. Related to Bleeding esophageal varices, unspecified esophageal varices type UDS today, xrays tod ay. PM referral. Medical records with patient. Related to Neck pain Take your medication as directedFollow up for referral. After a start or change in antidepressant medication, it can take up to 4 weeks to notice the full effectsWe discussed the side effects and projected outcome of starting this medication (patient agreeable to plan)Stop taking the medication if you stat to develop SI or HI, notify someone and either call 911 or go to the nearest EDPlease call the office in 4-6 weeks for an update on how you are feelingReturn to the clinic as needed Related to Depression, unspecified depression type Referral to GI. Related to Hx of hepatitis C Assessments Type Assessment Date No Information Patient Care Teams Name Effective Dates (start - stop) Status Members No Information
[2024-11-14 14:03] VITALS: BP 133/79; PULSE 82; TEMP 37; O2SAT 99
--- NOTE | 2024-11-14 14:07 | XR_ITS ---
WS: [id number] XR chest 1V portable [id number] REASON FOR EXAM: cp FINDINGS: The chest is unchanged compared to previous examination 02/01/2024. Moderate tortuosity and ectasia of the thoracic aorta. Normal heart size. Eventration of the right hemidiaphragm. Calcified granulomatous disease in both hemithoraces. No acute pulmonary parenchymal or pleural abnormality. No significant abnormality of the bony thorax. XR/XR chest 1V portable [id number] IMPRESSION: Stable chest without acute abnormality.
--- NOTE | 2024-11-14 14:07 | ECG_ITS ---
[facility]: [facility]24-11[facility]14 Pat Name: Stella Covarrubias Department: Room: Gender: Female Reel Hooker: : 1960 Requested By: Warner Mahajan Order Number: [id number] Ella MD: Yogi Arriola M.D. Measurements Intervals [place] Rate: 79 P: 57 NM: 138 QRS: 52 QRSD: 71 T: 54 QT: 377 QTc: 433 Interpretive Statements SINUS RHYTHM Compared to ECG 01/20/2024 15:12:20 No significant changes Electronically Signed On 11-17-2024 09:07:59 CDT by Yogi Arriola M.D. [email or web address]
--- OUTSIDE RECORDS SUMMARY | 2024-11-14 14:11 | XMS_ITS | Encounter Summary ---
Author Organization [facility] Address [address] [place] [address] Care Team Providers Care Painter Name Role Phone Non-Staff, Physician Primary Care Provider Unava ilable Encounter Details Date Type Department Care Team (Latest Contact Info) Description 12/29/2001 Outpatient Historical [facility] [address] [facility] [address] [place] [address] Leonard José Jr., DO NO ADDRESS ON FILE Sprain thoracic region (Primary Dx) Social History Tobacco Use Types Packs/Day Years Used Date Smoking Tobacco: Never Assessed Comments Unknown Sex and Gender Information Value Date Recorded Sex Assigned at Not on file 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
--- OUTSIDE RECORDS SUMMARY | 2024-11-14 14:11 | XMS_ITS | Encounter Summary ---
Author Organization [facility] Address [address] [place] [address] Care Team Providers Care Manager Quality Name Role Phone Non-Staff, Physician Primary Care Provider Unava ilable Encounter Details Date Type Department Care Team (Late st Contact Info) Description 09/01/2003 Emergency [facility] Emergency Department [address] 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
--- OUTSIDE RECORDS SUMMARY | 2024-11-14 14:11 | XMS_ITS | Encounter Summary ---
Author Organization [facility] Address [address] [place] [address] Care Team Providers Care Conditioning Coach Name Role Phone Non-Staff, Physician Primary Care Provider Unava ilable Encounter Details Date Type Department Care Team (Late st Contact Info) Description 07/08/2002 Inpatient Historical [facility] Kurt Hutchison MD [address] [place] [address] REHABILITATION PROC NEC (Primary Dx) Social History Tobacco Use Types Packs/Day Years Used Date Smoking Tobacco: Never Assessed Comments Unknown Sex and Gender Information Value Date Recorded Sex Assigned at Not on file 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
--- OUTSIDE RECORDS SUMMARY | 2024-11-14 14:11 | XMS_ITS | Encounter Summary ---
Author Organization [facility] Address [address] [place] [address] Care Team Providers Care French Instructor Name Role Phone Non-Staff, Physician Primary Care Provider Unava ilable Encounter Details Date Type Department Care Team (Late st Contact Info) Description 10/23/2003 Emergency [facility] Emergency Department [address] 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
--- OUTSIDE RECORDS SUMMARY | 2024-11-14 14:11 | XMS_ITS | Encounter Summary ---
Author Organization [facility] Address [address] [place] [address] Care Team Providers Care Production Support Consultant Name Role Phone Non-Staff, Physician Primary Care Provider Unava ilable Encounter Details Date Type Department Care Team (Latest Contact Info) Description 10/04/2001 Outpatient Historical [facility] [place] [address] [facility] [address] [place] [address] Leonard José Jr., DO NO ADDRESS ON FILE VIRAL WARTS NOS (Primary Dx); GENERALIZED ANXIETY DIS Social History Tobacco Use Types Packs/Day Years Used Date Smoking Tobacco: Never Assessed Comments Unknown Sex and Gender Information Value Date Recorded Sex Assigned at Not on file 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
--- OUTSIDE RECORDS SUMMARY | 2024-11-14 14:11 | XMS_ITS | Encounter Summary ---
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
--- OUTSIDE RECORDS SUMMARY | 2024-11-14 14:11 | XMS_ITS | Clinical Summary ---
Author Organization [facility] Address [address] [place] [address] Care Team Providers Care Gyro Mechanic Name Role Phone Non-Staff, Physician Primary Care Provider Unava ilable Allergies Active Allergy Reactions Criticality Noted Date Comments Prochlorperazine Edisylate Hallucination Medium 2010 Medications spironolactone (ALDACTONE) 100 mg tablet Take 1 Tablet (100 mg) by mouth 2 times daily. 180 Tablet 3 12/06/2018 Active citalopram hydrobromide (CITALOPRAM ORAL) Take 1 Tablet by mouth daily. Active pregabalin (LYRICA) 75 mg Capsule Take 75 mg by mouth daily at bedtime. Active ibuprofen (MOTRIN) 800 mg tablet Take 800 mg by mouth every 6 hours as needed for Pain, Mild. Active Active Problems Problem Noted Date Diagnosed Date Enteritis 12/04/2018 Alcoholic cirrhosis of liver with ascites 2018 Chronic back pain 12/04/2018 Hypertension 12/04/2018 CHF (congestive heart failure) 12/04/2018 Immunizations Immunization Administration Dates Next Due (TDVAX)(7 YRS UP) TETANUS AN D DIPHTHERIA TOXOIDS, ADSORBED (2 LF OF TETANUS TOXOID AND 2 LF OF DIPHTHERIA TOXOID), 0.5ML (PF), IM 02/28/2005 Family History Medical History Relation Name Comments Heart Disease Brother [place] Cancer Father lymphoma Diabetes Mother Hypertension Mother Other Mother Alzheimer's Other Sister anxiety Relation Name Status Comments Brother Father Mother Sister Social History Tobacco Use Types Packs/Day Years Used Date Smoking Tobacco: Every Day Cigarettes 0.5 30 Smokeless Tobacco: Never Alcohol Use Standard Drinks/Week Comments No 0 (1 standard drink = 0.6 oz pur e alcohol) Comments No Sex and Gender Information Value Date Recorded Sex Assigned at Not on file Legal Sex Female 2:44 AM LENS GAUGER Gender Identity Not on file Sexual Orientation Not on file Occupation Industry Job Start Date Job End Date Not on file Not on file Not on file Not on file Not on file Not on file Not on file Not on file Last Filed Vital Signs Vital Sign Reading Time Taken Comments Blood Pressure 158/90 06/17/2020 8:05 PM LENS GAUGER Pulse 100 12/06/2018 11:51 AM CDT Temperature 37.2 C (99 F) 06/17/2020 8:05 PM LENS GAUGER Respiratory Rate 20 06/17/2020 8:05 PM LENS GAUGER Oxygen Saturation 97% 06/17/2020 8:05 PM LENS GAUGER Inhaled Oxygen Concentration - - Weight 64 kg (141 lb) 06/17/2020 6:40 PM LENS GAUGER Height 162.6 cm (5' 4 ) 06/17/2020 6:40 PM LENS GAUGER Body Mass Index 24.2 06/17/2020 6:40 PM LENS GAUGER Plan of Treatment Health Maintenance Due Date Last Done Comments PNEUMOCOCCAL VACCINE 50+ YEARS (1 of 2 - PCV) 04/16/19 78 BREAST CANCER SCREENING 1999 COLORECTAL SCREENING 2004 Colorectal Cancer Screening 2004 FIT-DNA Q 3 years 2004 FIT/FOBT Q 1 year 2004 Flex Sig/CT Colonography Q 5 years 2004 DTAP/TDAP/TD VACCINES (1 - Tdap) 03/01/2005 02/29/20 05 ZOSTER VACCINE (1 of 2) 2009 RSV VACCINE (60+ or ) (1 - Risk 60-74 years 1-dose series) 2019 INFLUENZA VACCINE (#1) 2023 04/25/2019 OSTEOPOROSIS SCREENING 2024 Insurance MEDICARE PART A AND B MEDICAID [place] Advance Directives For more information, please contact: [phone] * Full Code (Latest Code Status on File) Date Activated Date Inactivated Comments 12/04/2018 1:26 AM 12/06/2018 5:28 PM Care Teams Gyro Mechanic Relationship Specialty Start Date End Date Non-Staff, Physician NO ADDRESS ON FILE PCP - General 06/17/20
--- OUTSIDE RECORDS SUMMARY | 2024-11-14 14:11 | XMS_ITS | Encounter Summary ---
Author Organization [facility] Address [address] [place] [address] Care Team Providers Care Lasting Floorworker Name Role Phone Non-Staff, Physician Primary Care Provider Unava ilable Encounter Details Date Type Department Care Team (Latest Contact Info) Description 05/22/2005 Outpatient Historical [facility] [address] [place] [address] [place] [address] Jere Denny MD NO ADDRESS ON FILE LUMB/LUMBOSAC DISC DEGEN (Primary Dx) Social History Tobacco Use Types Packs/Day Years Used Date Smoking Tobacco: Never Assessed Comments Unknown Sex and Gender Information Value Date Recorded Sex Assigned at Not on file Legal Sex Female 2:44 AM OPTICAL LENS MANUFACTURING TECH Gender Identity Not on file Sexual Orientation Not on file documented as of this encounter Plan of Treatment Not on file documented as of this encounter Visit Diagnoses Diagnosis Degeneration of lumbar or lumbosacral intervertebral disc- Primary documented in this encounter Care Teams Lasting Floorworker Relationship Specialty Start Date End Date Non-Staff, Physician NO ADDRESS ON FILE PCP - General 06/17/20 documented as of this encounter
--- OUTSIDE RECORDS SUMMARY | 2024-11-14 14:11 | XMS_ITS | Encounter Summary ---
Author Organization [facility] Address [address] [place] [address] Care Team Providers Care Machine Operator Transplanter Name Role Phone Non-Staff, Physician Primary Care Provider Unava ilable Encounter Details Date Type Department Care Team (Latest Contact Info) Description 05/24/2003 Inpatient Historical [facility] Emergency Department [address] [place] [address] aDriusz Boogie MD [address] [place] [address] Lew Stockton Jr., MD [address] [place] [id number] CONVERSION DISORDER (Primary Dx) Social History Tobacco Use Types Packs/Day Years Used Date Smoking Tobacco: Never Assessed Comments Unknown Sex and Gender Information Value Date Recorded Sex Assigned at Not on file Legal Sex Female 2:44 AM STYLIST ASSISTANT Gender Identity Not on file Sexual Orientation Not on file documented as of this encounter Plan of Treatment Not on file documented as of this encounter Visit Diagnoses Diagnosis Conversion disorder- Primary documented in this encounter Care Teams Machine Operator Transplanter Relationship Specialty Start Date End Date Non-Staff, Physician NO ADDRESS ON FILE PCP - General 06/17/20 documented as of this encounter
--- OUTSIDE RECORDS SUMMARY | 2024-11-14 14:11 | XMS_ITS | Encounter Summary ---
Author Organization [facility] Address [address] [facility] Attn: Epic Prelude ADT [place] [address] Care Team Providers Care Licensed Nuclear Control Room Operator Name Role Phone Non-Staff, Physician Primary Care Provider Unava ilable Encounter Details Date Type Department Care Team (Late st Contact Info) Description 05/27/2003 Inpatient Historical Alvaro Latif NO ADDRESS ON FILE ALCOH DEP NEC/NOS-EPISOD (CMS/HCC) (Primary Dx) Social History Tobacco Use Types Packs/Day Years Used Date Smoking Tobacco: Never Assessed Comments Unknown Sex and Gender Information Value Date Recorded Sex Assigned at Not on file Legal Sex Female 2:44 AM SCHEDULER MAINTENANCE Gender Identity Not on file Sexual Orientation Not on file documented as of this encounter Plan of Treatment Not on file documented as of this encounter Visit Diagnoses Diagnosis Other and unspecified alcohol dependence, episodic drinking behavior- Primary documented in this encounter Care Teams Licensed Nuclear Control Room Operator Relationship Specialty Start Date End Date Non-Staff, Physician NO ADDRESS ON FILE PCP - General 06/17/20 documented as of this encounter
--- OUTSIDE RECORDS SUMMARY | 2024-11-14 14:11 | XMS_ITS | Encounter Summary ---
Author Organization [facility] Address [address] [place] [address] Care Team Providers Care Hospital Clinic Assistant Name Role Phone Non-Staff, Physician Primary Care Provider Unava ilable Encounter Details Date Type Department Care Team (Latest Contact Info) Description 12/02/2001 Outpatient Historical [facility] [id number] [place] [address] [address] [place] [address] Leonard José Jr., DO NO ADDRESS ON FILE VIR HEP NEC W/O COMA W HEP C CHRON (CMS/HCC) (Primary Dx); Benign hypertension; GENERALIZED ANXIETY DIS Social History Tobacco Use Types Packs/Day Years Used Date Smoking Tobacco: Never Assessed Comments Unknown Sex and Gender Information Value Date Recorded Sex Assigned at Not on file Legal Sex Female 2:44 AM FIRM ADMINISTRATOR Gender Identity Not on file Sexual Orientation Not on file documented as of this encounter Plan of Treatment Not on file documented as of this encounter Visit Diagnoses Diagnosis Chronic hepatitis C without mention of hepatic coma (CMS/HCC)- Primary Chronic hepatitis C without mention of hepatic coma Benign hypertension Essential hypertension, benign Generalized anxiety disorder documented in this encounter Care Teams Hospital Clinic Assistant Relationship Specialty Start Date End Date Non-Staff, Physician NO ADDRESS ON FILE PCP - General 06/17/20 documented as of this encounter
--- OUTSIDE RECORDS SUMMARY | 2024-11-14 14:11 | XMS_ITS | Clinical Summary ---
Author Organization [facility] Address [address] [facility] Attn: Epic Prelude ADT [place] [address] Care Team Providers Care Yarn Sizer Name Role Phone Conrad Amaya MD Primary Care Provider [phone] Allergies Active Allergy Reactions Criticality Noted Date Comments Metoclopramide Hcl Delirium Medium 05/08/2023 Prochlorperazine Palpitations Medium 08/22/2021 Prochlorperazine Edisylate Hallucination Medium 2010 Medications HYDROCODONE-ACET AMINOPHEN ORAL Take by mouth. Active pantoprazole (PROTONIX) 40 mg Tablet, Delayed Release (E.C.)Indication s:Gastroesophage al reflux disease, unspecified whether esophagitis present TAKE 1 TABLET(40 MG) BY MOUTH DAILY 100 Tablet 1 08/23/19 25 Active ondansetron (ZOFRAN ODT) 8 mg Tablet, Rapid Dissolve Place 1 Tablet (8 mg) under tongue every 8 hours as needed for Nausea/Emesi s. Dissolve 1 tablet on top of tongue then swallow with saliva every 8 hours as needed for nausea or vomiting 10 Tablet 2 09/01/19 25 Active escitalopram oxalate (LEXAPRO) 10 mg tabletIndication s:Recurrent major depressive disorder, in partial remission TAKE 1 TABLET(10 MG) BY MOUTH DAILY 100 Tablet 1 09/03/19 25 Active nortriptyline (PAMELOR) 10 mg capsuleIndicatio ns:Recurrent major depressive disorder, in partial remission,Irrita ble bowel syndrome with diarrhea TAKE 1 CAPSULE(10 MG) BY MOUTH DAILY AT BEDTIME 30 Capsule 5 09/03/19 25 Active amLODIPine (NORVASC) 10 mg tabletIndication s:Primary hypertension TAKE 1 TABLET(10 MG) BY MOUTH DAILY 100 Tablet 11/02/19 25 Active amLODIPine (NORVASC) 10 mg tabletIndication s:Primary hypertension TAKE 1 TABLET(10 MG) BY MOUTH DAILY 100 Tablet 09/30/19 25 025 Discontinued Active Problems Problem Noted Date Diagnosed Date Viral gastroenteritis 06/16/2024 Chronic pancreatitis 03/08/2024 Irritable bowel syndrome with diarrhea Migraine with aura and witho ut status migrainosus, not intractable 09/11/2023 RUQ abdominal pain 05/08/2023 Tobacco use 02/10/2023 History of hepatitis C 02/10/2023 GERD (gastroesophageal reflux disease) History of methamphetamine abuse 02/10/2023 Medical clearance for psychiatric admission 11/2021 Methamphetamine abuse 08/22/2021 Narcotic abuse 08/22/2021 Marijuana abuse 08/22/2021 CHF (congestive heart failure) 12/04/2018 Hypertension 12/04/2018 Other cirrhosis of liver 12/04/2018 Chronic back pain 12/04/2018 Suicidal ideations Recurrent major depressive disorder, in partial remission LONG (generalized anxiety disorder) Resolved Problems Problem Noted Date Diagnosed Date Resolved Date Enteritis 12/04/2018 02/10/2023 Encounters Date Type Department Care Team Description 11/01/[address] [phone] Conrad Amaya MD Primary hypertension 10/18/2024 External Device Data ST[facility] ABSTRACTION Provider, Abstract 10/18/2024 External Device Data [facility] ABSTRACTION Provider, Abstract 10/03/2024 Orders Only [facility] [address] [place] [phone] Provider, Abstract 09/29/[address] [phone] Conrad Amaya MD Primary hypertension 09/20/[address] [phone] Conrad Amaya MD 09/20/2024 Orders Only [facility] [address] [place] [phone] Provider, Abstract 09/19/2024 Orders Only [facility] [id number] [place] [phone] Provider, Abstract 09/13/2024 External Device Data [facility] ABSTRACTION Provider, Abstract 09/02/[address] [phone] Conrad Amaya MD Recurrent major depressive disorder, in partial remission; Irritable bowel syndrome with diarrhea 08/31/[address] [phone] Conrad Amaya MD Medication Question 08/22/[address] [phone] Conrad Amaya MD Chronic pancreatitis, unspecified pancreatitis type (CMS/HCC) 08/22/[address] [phone] Conrad Amaya MD Gastroesophageal reflux disease, unspecified whether esophagitis present 08/19/[address] [phone] Bernice Sanchez FNP Primary Care Outreach 08/19/2024 External Device Data Initial Department [address] [facility] [address] TRIPLETT: [place] [address] Jay Espinoza Md from Last 3 Months Immunizations Immunization Administration Dates Next Due (PNEUMOVAX 23)(50 YRS UP) PN EUMOCOCCAL POLYSACCHARIDE (PPV23) 0.5 ML, IM 12/27/2017 (SPIKEVAX)(12 YRS AND UP)COV ID-19 VACCINE, MRNA, LNP-S(PF) 50 MCG/0.5 ML IM SUSPENCY USE AUTHORIZATION, RECOMBINANT-ADJ(PF) 5 MCG/0.5 ML IM SUSP 02/24/2024 (TDVAX)(7 YRS UP) TETANUS AN D DIPHTHERIA TOXOIDS, ADSORBED (2 LF OF TETANUS TOXOID AND 2 LF OF DIPHTHERIA TOXOID), 0.5ML (PF), IM 02/28/2005 INFLUENZA VACCINE QUADRIVALENT 6 MOS UP PF IM INFLUENZA VACCINE TRIVALENT SPLIT VIRUS, (6 MOS UP), 0.5ML (PF), IM 02/24/2024 Family History Medical History Relation Name Comments Heart Disease Brother [place] Cancer Father lymphoma Diabetes Mother Hypertension Mother Other Mother Alzheimer's Other Sister anxiety Colon Cancer Neg Hx Relation Name Status Comments Brother Father Mother Sister Social History Tobacco Use Types Packs/Day Years Used Date Smoking Tobacco: Every Day Cigarettes Smokeless Tobacco: Never Tobacco Cessation:Ready to Q uit: Not Asked; Counseling Given: Not Answered Comments:Patient is ready to quit Alcohol Use Standard Drinks/Week Comments No 0 (1 standard drink = 0.6 oz pur e alcohol) Feeling Safe Answer Date Recorded Are you in a relationship wi th someone who hurts you emotionally and/or physically? No 06/16/2024 Food Insecurity Answer Date Recorded Patient needs follow up regardin 09/07/2024 Transportation Needs Answer Date Record ed Patient needs follow up regardin 09/07/2024 Housing Stability Answer Date Recorded Social/Environmental Concerns No concerns Utility Needs Answer Date Recorded Patient needs follow up regardin 09/07/2024 Comments No Sex and Gender Information Value Date Recorded Sex Assigned at Not on file Legal Sex Female 1:39 PM PEARL GLUE DRIER Gender Identity Not on file Sexual Orientation Not on file Last Filed Vital Signs Vital Sign Reading Time Taken Comments Blood Pressure 116/62 06/17/2024 7:50 AM PEARL GLUE DRIER Pulse 70 06/17/2024 7:50 AM PEARL GLUE DRIER Temperature 37.2 C (99 F) 06/17/2024 7:50 AM PEARL GLUE DRIER Respiratory Rate 20 06/17/2024 7:50 AM PEARL GLUE DRIER Oxygen Saturation 95% 06/17/2024 7:50 AM PEARL GLUE DRIER Inhaled Oxygen Concentration - - Weight 75.1 kg (165 lb 8 oz) 06/16/2024 12:45 PM PEARL GLUE DRIER Height 162.6 cm (5' 4 ) 06/16/2024 12:45 PM PEARL GLUE DRIER Body Mass Index 28.41 06/16/2024 12:45 PM PEARL GLUE DRIER Plan of Treatment Health Maintenance Due Date Last Done Comments Preventative Visit-Managed Medicaid 1978 BREAST CANCER SCREENING 1999 FIT-DNA Q 3 years 2004 FIT/FOBT Q 1 year 2004 Flex Sig/CT Colonography Q 5 years 2004 DTAP/TDAP/TD VACCINES (1 - Tdap) 03/01/2005 02/29/20 05 ZOSTER VACCINE (1 of 2) 2009 PNEUMOCOCCAL VACCINE 50+ YEA RS (2 of 2 - PCV) 12/27/2018 12/27/2017 RSV VACCINE (60+ or ) (1 - Risk 60-74 years 1-dose series) 2019 OSTEOPOROSIS SCREENING 2024 COVID-19 Vaccine (5 - 2023-2 5 season) 2024 02/24/2024, 07/13/2023, 10/23/2021, Additional history exists Pre-Diabetes and Diabetes Screening 04/15/2026 04/15/2023, 11/01/2022 COLORECTAL SCREENING 08/30/2034 08/30/2024, 08/31/19 25 Colorectal Cancer Screening 08/30/2034 INFLUENZA VACCINE Completed 02/24/2024, , 04/25/2019 Procedures Procedure Name Priority Date/Time Associated Diagnosis Comments COMPREHENSIVE METABOLIC PANEL Routine 09/30/2024 10:09 AM CDT COMPREHENSIVE METABOLIC PANEL Routine 09/16/2024 10:45 AM CDT ENDOSCOPY, COLON, SCREENING Routine 08/30/2024 9:34 AM CDT HEMOGLOBIN A1C Routine 04/15/2023 from Last 3 Months or Most Recently Relevant to Health Maintenance Results * COMPREHENSIVE METABOLIC PANEL (09/30/2024 10:09 AM CDT) Only the most recent of2 resultswithin the time period is included. Blood us Abstract Provider CHEMISTRY ORDERABLES Final Res ult * ENDOSCOPY, COLON, SCREENING (08/30/2024 9:34 AM CDT) us Abstract Provider GI PROCEDURE ORDERABLES Final Result * HEMOGLOBIN A1C (04/15/2023) ABSTRACTED HGB A1C 4.9 Blood 04/15/2023 us Abstract Provider CHEMISTRY ORDERABLES Final Res ult from Last 3 Months or Most Recently Relevant to Health Maintenance Insurance [address] [place] [address] [address] [place] [address] MEDICAID [place] [address] [place] [facility] Medicare Part D [place]ICAID [place] Advance Directives For more information, please contact: [phone] * Full Code (Latest Code Status on File) Date Activated Date Inactivated Comments 06/16/2024 8:08 PM 06/17/2024 3:59 PM * Default Full Code - Needs Discussion Date Activated Date Inactivated Comments 05/08/2023 7:19 PM 05/10/2023 8:28 PM * Full Code Date Activated Date Inactivated Comments 08/24/2021 9:23 PM 08/26/2021 4:10 PM * Full Code Date Activated Date Inactivated Comments 08/22/2021 1:49 AM 08/24/2021 2:38 PM Care Teams Yarn Sizer Relationship Specialty Start Date End Date Conrad Amaya MD [address] [address] PCP - General Family Practice 02/10/23
--- OUTSIDE RECORDS SUMMARY | 2024-11-14 14:11 | XMS_ITS | Encounter Summary ---
Author Organization [facility] Address [address] [place] [address] Care Team Providers Care Acupressure Therapist Name Role Phone Non-Staff, Physician Primary Care Provider Unava ilable Encounter Details Date Type Department Care Team (Latest Contact Info) Description 05/22/2005 [facility]patient [facility] [address] [place] [address] Jere Denny MD NO ADDRESS ON FILE LUMB/LUMBOSAC DISC DEGEN (Primary Dx); Lumbar disc displacement; LUMBAGO; Lumbosacral spondylosis Social History Tobacco Use Types Packs/Day Years Used Date Smoking Tobacco: Never Assessed Comments Unknown Sex and Gender Information Value Date Recorded Sex Assigned at Not on file Legal Sex Female 2:44 AM OPERATIONS SCHEDULER Gender Identity Not on file Sexual Orientation Not on file documented as of this encounter Plan of Treatment Not on file documented as of this encounter Visit Diagnoses Diagnosis Degeneration of lumbar or lumbosacral intervertebral disc- Primary Lumbar disc displacement Displacement of lumbar intervertebral disc without myelopathy Lumbago Lumbosacral spondylosis Lumbosacral spondylosis without myelopathy documented in this encounter Care Teams Acupressure Therapist Relationship Specialty Start Date End Date Non-Staff, Physician NO ADDRESS ON FILE PCP - General 06/17/20 documented as of this encounter
--- NOTE | 2024-11-14 14:27 | W.ED.CHESTPA ---
HPI - Chest Pain General: Chief Complaint: Chest Pain Stated Complaint: cp Time Seen by Provider: 11/14/24 14:27 History of Present Illness: 64-year-old female who presents to the emergency room with complaint of chest pain. States it began this morning radiates into her back. She has a history of liver cirrhosis related to hepatitis C but she had been treated for this and reportedly it has been cleared. She recently had diverticulitis she had 2 CTs last month which were reviewed in the chart she has completed the course of antibiotics and had a colonoscopy which she was told is normal. She is still having some loose stools, no mucousy stools no hematochezia or melena. Associated symptoms: Deny abdominal pain, dyspnea or fever(s) Related Data Home Medications ?Medication ?Instructions ?Recorded ?Confirmed amlodipine 10 mg tablet 10 mg PO QPM 03/05/23 11/14/24 ondansetron HCl 8 mg tablet 8 mg PO Q8H PRN Nausea And Vomiting 08/24/24 11/14/24 escitalopram oxalate 10 mg tablet 10 mg PO QPM 11/14/24 11/14/24 hydrocodone 7.5 mg-acetaminophen 1 tab PO Q6H PRN Pain 11/14/24 11/14/24 325 mg tablet Previous Rx's ?Medication ?Instructions ?Recorded pantoprazole 40 mg tablet,delayed 40 mg PO BID 30 days #60 tabs 10/24/24 release sucralfate 100 mg/mL oral 10 ml PO BID 30 days #600 mL 10/24/24 suspension Allergies Allergy/AdvReac Type Severity Reaction Status Date / Time prochlorperazine (From Allergy Intermediate ADR-Irritab Verified 11/14/24 14:12 Compazine) le Review of Systems Const: Denies: fever(s) or chills Card: Reports: chest pain; Denies: swelling of feet/ankles, dyspnea on exertion or orthopnea Resp: Denies: dyspnea GI: Denies: abdominal pain : Denies: dysuria, urinary frequency or urinary urgency Musc: Denies: neck pain or back pain Skin/Breast: Denies: rash PFSH ED PFSH: Medical History Renal mass Basal cell carcinoma (BCC) Chronic right shoulder pain Chronic neck pain Constipation Diverticulosis of colon Generalized anxiety disorder Cirrhosis of liver History of past hepatitis C that was treated, 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 Cervical radiculopathy Herniation of left side of L4-L5 intervertebral disc HTN (hypertension) Depression Degenerative disk disease 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, 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 Surgical History History of hysterectomy S/P TIPS (transjugular intrahepatic portosystemic shunt) History of neck surgery Family History Mother Heart problem Brother Heart problem Denies family history of Pancreatitis Social History Smoking and tobacco/nicotine status: current every day tobacco/nicotine user cigarettes [ Other cigarette details: 4-5 cigarettes per day] Second hand smoke exposure: Yes Alcohol intake: never Substance/Drug Use: never Physical Exam Const: COMMON NORMALS: no acute distress GENERAL APPEARANCE: cooperative and comfortable ORIENTATION/CONSCIOUSNESS: Yes awake, Yes oriented to person, Yes oriented to place and Yes oriented to time HENMT: COMMON NORMALS: normocephalic, atraumatic and hearing grossly normal bilaterally HEAD & SCALP: normocephalic and atraumatic Resp: COMMON NORMALS: normal respiratory effort, No retractions, No use of accessory muscles and clear to auscultation bilaterally AUSCULTATION: clear to auscultation bilaterally Cardio: COMMON NORMALS: regular rate, regular rhythm and No murmurs present (Cardio) RATE: regular rate RHYTHM: regular rhythm GI: COMMON NORMALS: Soft to palpation and No hepatosplenomegaly present AUSCULTATION: Yes normoactive bowel sounds PALPATION: Yes Soft to palpation, No Tenderness to palpation present (GI), No Guarding due to palpation present (GI) and Yes No hepatosplenomegaly present Extremity: COMMON NORMALS: normal to inspection, capillary refill normal, no clubbing, cyanosis or edema, no calf tenderness and no pedal edema Neuro: SENSORIUM/ORIENTATION: Yes oriented to person, Yes oriented to place and Yes oriented to time Skin: COMMON NORMALS: no rashes or lesions noted GENERAL SKIN EXAM: no rashes or lesions noted Course Vital Signs: Vital signs: Vital Signs Temperature 98.6 F 11/14/24 14:03 Pulse Rate 82 11/14/24 14:03 Blood Pressure 133/79 11/14/24 14:03 Pulse Oximetry 99 11/14/24 14:03 Oxygen Delivery Me thod Room Air 11/14/24 14:03 MDM - Chest Pain Medical Decision Making Cardiac enzymes and EKG are negative. Abdominal exam is benign. She is anemic that should be followed up probably within the next week she also was mildly thrombocytopenic. Liver functions are normal. Medical Records I reviewed the patient's medical records. Lab Data I reviewed the patient's lab results. 11/14/24 14:23 11/14/24 14:23 Radiology Impressions Chest X-Ray 11/14/24 14:07 IMPRESSION: Stable chest without acute abnormality. Laboratory Results WBC 4.40 10^3/uL (3.29-11.43) 11/14/24 14:23 RBC 4.14 10^6/uL (3.85-5.65) 11/14/24 14:23 Hgb 8.70 g/dL (11.27-16.99) L 11/14/24 14:23 Hct 29.8 % (36-47) L 11/14/24 14:23 MCV 72.0 fl (85-98) L 11/14/24 14:23 MCH 21.0 pg (27-33) L 11/14/24 14:23 MCHC 29.2 g/dL (30-55) L 11/14/24 14:23 RDW 16.2 % (12.1-15.1) H 11/14/24 14:23 Plt Count 151 10^3/cmm (157-399) L 11/14/24 14:23 MPV 11.8 fL (7.4-10.4) H 11/14/24 14:23 Neut % (Auto) 54.0 % 11/14/24 14:23 Lymph % (Auto) 33.9 % 11/14/24 14:23 [place] % (Auto) 8.0 % 11/14/24 14:23 Eos % (Auto) 3.0 % 11/14/24 14:23 Baso % (Auto) 0.9 % 11/14/24 14:23 Neut # (Auto) 2.38 10^3/uL (1.8-7.7) 11/14/24 14:23 Lymph # (Auto) 1.5 10^3/uL (0.8-4.8) 11/14/24 14:23 [place] # (Auto) 0.4 10^3/uL (0.2-0.9) 11/14/24 14:23 Eos # (Auto) 0.1 10^3/uL (0.0-0.8) 11/14/24 14:23 Baso # (Auto) 0.0 10^3/uL (0.0-0.1) 11/14/24 14:23 Nucleated RBC % (auto) 0 % 11/14/24 14:23 Nucleated RBCs # 0.0 /100WBC 11/14/24 14:23 PT 14.80 SECONDS (12.1-14.9) 11/14/24 14:23 INR 1.08 (0.8-1.2) 11/14/24 14:23 Sodium 139 mmol/L (136-145) 11/14/24 14:23 Potassium 3.9 mmol/L (3.5-5.1) 11/14/24 14:23 Chloride 105 mmol/L (98-107) 11/14/24 14:23 Carbon Dioxide 22 mmol/L (22-29) 11/14/24 14:23 Anion Gap 15.9 (5-19) 11/14/24 14:23 BUN 9 mg/dL (8-23) 11/14/24 14:23 Creatinine 0.6 mg/dL (0.5-0.9) 11/14/24 14:23 GFR Calculation 100.3 mL/min (90-130) 11/14/24 14:23 Glucose 78 mg/dL (65-115) 11/14/24 14:23 Calculated Osmolality 286 mOsm/kg (285-295) 11/14/24 14:23 Calcium 9.1 mg/dL (8.5-10.5) 11/14/24 14:23 Total Bilirubin 0.5 mg/dL (0.15-1.2) 11/14/24 14:23 AST 19 U/L (0-32) 11/14/24 14:23 ALT 9 U/L (0-33) 11/14/24 14:23 Alkaline Phosphatase 78 U/L (35-105) 11/14/24 14:23 Troponin T Baseline < 6 ng/L (0-10) 11/14/24 14:23 Troponin T 120 Minute 7.05 ng/L (0-10) 11/14/24 16:09 Delta Troponin T 1.30116 ABS# (0-10) 11/14/24 16:09 Total Protein 7.1 g/dL (6.6-8.7) 11/14/24 14:23 Albumin 4.2 g/dL (3.5-5.2) 11/14/24 14:23 Globulin 2.9 g/dL (1.3-4.6) 11/14/24 14:23 Lipase 47 U/L (13-60) 11/14/24 14:23 All radiology interpretation(s) finalized by discharge EKG Data EKG 1: Interpretation: EKG 11/14/2024 1407 normal sinus rhythm no acute ST changes noted rate of 79 VA interval 138 QTc 433 compared to EKG 01/20/2024 no significant change Discharge Plan Discharge Patient Disposition: Home Clinical Impression: Atypical chest pain, Anemia Cirrhosis of liver Qualifiers: Hepatic cirrhosis type: unspecified hepatic cirrhosis Ascites presence: with ascites Qualified Code(s): K74.60 - Unspecified cirrhosis of liver Condition: Stable Prescriptions: No Action sucralfate 100 mg/mL suspension 10 ml PO BID 30 Days Qty: 600 5RF pantoprazole 40 mg tablet,delayed release (DR/EC) 40 mg PO BID 30 Days Qty: 60 5RF amlodipine 10 mg tablet 10 mg PO QPM ondansetron HCl 8 mg tablet 8 mg PO Q8H PRN (Reason: Nausea And Vomiting) hydrocodone-acetaminophen 7.5-325 mg tablet 1 tab PO Q6H PRN (Reason: Pain) escitalopram oxalate 10 mg tablet 10 mg PO QPM Discharge Orders: Discharge ED (Routine); Ordered 11/14/24 Ordered By: Sher Trejo Referrals: Conrad Amaya [Primary Care Provider, Family Practice] Patient Instructions: Opioid Safety, Pain Management, Patient Portal & Alejandro Instructions Activity Restrictions/Additional Instructions: Thank you for choosing [facility] for your healthcare needs today. It is very important that you follow up as instructed or that you return to the Emergency Department should you have concerns or if your condition changes or worsens in any way. Recommend you follow-up with your primary care doctor within the next week to have a repeat hemoglobin drawn. Case management make arrangements for you to have a follow-up outpatient Lexiscan sestamibi stress test to further evaluate your heart. Print Language: Faroese Coding Level of Care Code ED Binitrotoluene Operator for Nadia Poole
[2024-11-14 14:31] LABS: Basophils % 0.9 %; Eosinophils # 0.1 10^3/uL (0.0-0.8); Hematocrit 29.8 % (36-47); Lymphocytes # 1.5 10^3/uL (0.8-4.8); Lymphocytes % 33.9 %; Mean Corpuscular HGB Conc 29.2 g/dL (30-55); Mean Platelet Volume 11.8 fL (7.4-10.4); Monocytes # 0.4 10^3/uL (0.2-0.9); Neutrophils # 2.38 10^3/uL (1.8-7.7); Nucleated Red Blood Cells % 0 %; Platelet Count 151 10^3/cmm (157-399); Red Blood Count 4.14 10^6/uL (3.85-5.65); Red Cell Distribution Width 16.2 % (12.1-15.1)
[2024-11-14 14:43] LABS: INR 1.08 (0.8-1.2)
[2024-11-14 14:46] LABS: Slide Review Slide Review Perform
[2024-11-14 14:48] LABS: Troponin(5th) Baseline < 6 ng/L (0-10)
[2024-11-14 14:49] LABS: Alanine Aminotransferase 9 U/L (0-33); Albumin Level 4.2 g/dL (3.5-5.2); Alkaline Phosphatase 78 U/L (35-105); Anion Gap 15.9 (5-19); Aspartate Amino Transferase 19 U/L (0-32); Blood Urea Nitrogen 9 mg/dL (8-23); Calcium 9.1 mg/dL (8.5-10.5); Carbon Dioxide 22 mmol/L (22-29); Chloride 105 mmol/L (98-107); Creatinine Clr Calc Pharmacy 69.4578; Globulin 2.9 g/dL (1.3-4.6); Glomerular Filtration Rate 100.3 mL/min (90-130); Glucose 78 mg/dL (65-115); Lipase 47 U/L (13-60); Osmolality Calculated 286 mOsm/kg (285-295); Potassium 3.9 mmol/L (3.5-5.1); Sodium 139 mmol/L (136-145); Total Bilirubin 0.5 mg/dL (0.15-1.2); Total Protein 7.1 g/dL (6.6-8.7)
[2024-11-14 16:37] LABS: Troponin 5 2HR 7.05 ng/L (0-10); Troponin 5 2HR Delta 1.05001 ABS# (0-10)
--- NOTE | 2024-11-17 07:10 | DCPLANNER ---
FAXED outpatient lexiscan to scheduling
== END 2024-11-14 17:39 | disposition home or self-care (01) ==
PROVIDERS: Emergency Medicine; Emergency Provider Family Medicine; PCP Family Medicine
DX: R07.89 Other chest pain (principal); D64.9 Anemia, unspecified; K74.60 Unspecified cirrhosis of liver; F17.210 Nicotine dependence, cigarettes, uncomplicated; I10 Essential (primary) hypertension
CPT/HCPCS: 36415; 71045; 80053; 83690; 84484; 85025; 85610; 93005; 99204; 99285

== ENCOUNTER 2024-11-29 13:05 | Emergency (ER) | payer MEDICARE, MEDICAID, SELFPAY ==
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
--- OUTSIDE RECORDS SUMMARY | 2024-11-25 13:40 | XMS_ITS | Encounter Summary ---
Author Organization [facility] Address [address] [place] [address] Care Team Providers Care Downstairs Maid Name Role Phone Conrad Amaya MD Primary Care Provider [phone] Reason for Visit * Reason Comments ER Follow Up Low Hemoglobin Encounter Details Date Type Department Care Team (Late st Contact Info) Description 11/25/2024 1:40 PM CDT Office Visit [facility] Medicine [address] [address] Sandie Diaz, [address] [address] Anemia, unspecified type (Primary Dx); Other cirrhosis of liver (CMS/HCC); Viral gastroenteritis; Chronic blood loss anemia Social History Tobacco Use Types Packs/Day Years Used Date Smoking Tobacco: Every Day Cigarettes Smokeless Tobacco: Never Comments:Patient is ready to quit Alcohol Use Standard Drinks/Week Comments No 0 (1 standard drink = 0.6 oz pur e alcohol) Feeling Safe Answer Date Recorded Are you in a relationship wi th someone who hurts you emotionally and/or physically? 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 Gender Identity Not on file Sexual Orientation Not on file documented as of this encounter Last Filed Vital Signs Vital Sign Reading Time Taken Comments Blood Pressure 138/68 11/25/2024 1:26 PM CDT Pulse 74 11/25/2024 1:26 PM CDT Temperature 36.8 C (98.3 F) 11/25/2024 1:26 PM CDT Respiratory Rate 17 11/25/2024 1:26 PM CDT Oxygen Saturation 98% 11/25/2024 1:26 PM CDT Inhaled Oxygen Concentration - - Weight 77.4 kg (170 lb 9.6 oz) 11/25/2024 1:26 P M CDT Height 162.6 cm (5' 4 ) 11/25/2024 1:26 PM CDT Body Mass Index 29.28 11/25/2024 1:26 PM CDT documented in this encounter Progress Notes * Sandie Diaz, CANE FLUME CHUTE OPERATOR - 11/25/2024 1:[address] [facility] [place] 11/25/2024 Subjective: Stella Covarrubias is a 64 y.o. female who comes today for evaluation of ER Follow Up (Low Hemoglobin ) . History of Present Illness The patient is a 64-year-old female who presents for evaluation of low hemoglobin. She was seen in the ER last week and had low hemoglobin. She reports feeling weak and has difficulty walking. She has been taking iron supplements as prescribed by Dr. Miller. She missed her appointmentwith Dr. Amaya this morning, which led to her visit here. She has a history of a bleeding ulcer and is under the care of a store grocery merchandiser, Dr. Lara, who is a general surgeon in [place]. She is currently on a liquid medication regimen twice daily for her ulcer. She has undergone two colonoscopies, the first of which revealed a twisted bowel. A co uple of weeks ago, she had a colonoscopy with a barium enema, which showed acute gastritis and GERD. An upper GI procedure identified a bleeding ulcer. She has not yet scheduled her next appointment with Dr. Lara. Additionally, she has cirrhosis of the liver and suspects minor bleeding from her liver. Review of Systems Constitutional: Positive for malaise/fatigue. Negative for chills and fever. HENT: Negative for congestion, ear pain and sore throat. Eyes: Negative for blurred vision. Respiratory: Negative for cough and shortness of breath. Cardiovascular: Negative for chest pain. Gastrointestinal: Negative for abdominal pain, constipation, diarrhea, nausea and vomiting. Genitourinary: Negative for dysuria and urgency. Musculoskeletal: Negative for joint pain and myalgias. Neurological: Negative for dizziness and headaches. All other systems reviewed and are negative. Objective: Vitals: 11/25/24 1326 Temp: 98.3 ??F (36.8 ??C) Pulse: 74 BP: 138/68 Resp: 17 SpO2: 98% Physical Exam Constitutional: General: She is not in acute distress. Appearance: Normal appearance. She is not ill-appearing or toxic-appearing. HENT: Head: Normocephalic and atraumatic. Right Ear: Tympanic membrane normal. Left Ear: Tympanic membrane normal. Nose: Nose normal. Mouth/Throat: Mouth: Mucous membranes are moist. Eyes: Extraocular Movements: Extraocular movements intact. Pupils: Pupils are equal, round, and reactive to light. Neck: Vascular: No JVD. Cardiovascular: Rate and Rhythm: Normal rate and regular rhythm. Pulses: Normal pulses. Heart sounds: Normal heart sounds. Pulmonary: Effort: Pulmonary effort is normal. No respiratory distress. Breath sounds: Normal breath sounds and air entry. No decreased air movement. No wheezing, rhonchi or rales. Abdominal: General: Abdomen is flat. Bowel sounds are normal. Palpations: Abdomen is soft. Tenderness: There is no abdominal tenderness. Musculoskeletal: General: Normal range of motion. Cervical back: Normal range of motion and neck supple. Skin: General: Skin is warm and dry. Neurological: General: No focal deficit present. Mental Status: She is alert and oriented to person, place, and time. Psychiatric: Mood and Affect: Mood normal. Behavior: Behavior normal. Past medical history, surgical history and social history reviewed. Past Medical History: Diagnosis Date Ascites due to alcoholic cirrhosis (CMS/HCC) CHF (congestive heart failure) (CMS/HCC) Chronic back pain Cirrhosis, alcoholic (CMS/HCC) CVA (cerebral vascular accident) (CMS/HCC) Hepatitis C HTN (hypertension) IBS (irritable bowel syndrome) Procedures Assessment/Plan: ICD-10-CM ICD-9-CM 1. Anemia, unspecified type D64.9 285.9 IRON, TIBC, AND PERCENT SATURATION POC HEMOGLOBIN IRON, TIBC, AND PERCENT SATURATION 2. Other cirrhosis of liver (CMS/HCC) K74.69 571.5 3. Viral gastroenteritis A08.4 008.8 4. Chronic blood loss anemia D50.0 280.0 Assessment & Plan 1. Anemia. - Hemoglobin level is currently at 8.8, indicating stability from last week but still within the anemic range. - Dctlo-ac-drmo hemoglobin test conducted today; iron study will be ordered. - Instructed to inform store grocery merchandiser about current hemoglobin level of 8.8 and schedule a follow-up appointment. - Hemoglobin levels will be monitored biweekly; advised to maintain adequate hydration and rest dueto potential fatigue. 2. Bleeding ulcer. - History of bleeding ulcer; currently on liquid medication twice a day. - Advised to follow up with store grocery merchandiser to determine if the ulcer is still bleeding and discuss further treatment options, such as another upper GI scope given anemia - Recent colonoscopy with barium enema indicated acute gastritis and GERD. 3. Cirrhosis of the liver. - Has cirrhosis of the liver, which may contribute to bleeding issues due to impaired clotting factor production. - Advised to discuss this with store grocery merchandiser during follow-up visit. Follow-up - Patient will follow up on 11/29/2024 for hemoglobin check. HERNESTO Ansari- This note was automatically generated by a Generative AI technology ([employer]), reviewed, edited, and finalized by HERNESTO Ansari. The author of this note, patient (or authorized medical field representative), and all other persons present consent to the audio recording of this visit for charting documentation purposes. Depression Screen Positive: PHQ-2 score >= 3 or PHQ-9 score >= 9 PHQ-2 Total: 1 (11/25/2024 1:28 PM) DEPRESSION PLAN OF CARE Her depression screen was negative. (PHQ2 <3, PHQ9 <10, Sultan <11) documented in this encounter Plan of Treatment Scheduled Orders Name Type Priority Associated Diagnoses Orde r Schedule POC HEMOGLOBIN Point of Care Testing Routine Anemia, unspecified type Ordered: 11/25/2024 documented as of this encounter Procedures Procedure Name Priority Date/Time Associated Diagnosis Comments IRON, TIBC, AND PERCENT SATURATION Routine 11/25/2024 1:57 PM CDT Anemia, unspecified type documented in this encounter Results * (ABNORMAL) IRON, TIBC, AND PERCENT SATURATION (11/25/2024 1:57 PM CDT) IRON 36(L) 45 - 160 mcg/dL [facility] TIBC 311 250 - 450 mcg/dL (calc) [facility] IRON % SATURATION 12(L) 16 - 45 % (calc) [facility] Comment: Test Performed at: [facility] [address] [place] [address] Mauri Wall MD Blood 11/25/2024 1:57 PM CDT 11/26/2024 3:25 AM CDT Sandie Diaz CANE FLUME CHUTE OPERATOR CHEMISTRY ORDERABLES Final Result [facility] [phone] [facility] [address] [place] [address] documented in this encounter Visit Diagnoses Diagnosis Anemia, unspecified type- Primary Other cirrhosis of liver (CMS/HCC) Viral gastroenteritis Intestinal infection due to other organism, not elsewhere classified 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
--- NOTE | 2024-11-29 13:14 | XRR_ITS ---
PROCEDURE INFORMATION: Exam: XR Chest Exam date and time: 11/29/2024 1:31 PM Age: 64 years old Clinical indication: Other: Weakness TECHNIQUE: Imaging protocol: Radiologic exam of the chest. Views: 1 view. COMPARISON: CR XR chest 1V portable [id number] 11/14/2024 2:21 PM FINDINGS: Lungs: Similar mild right basilar opacities likely representing atelectasis. No consolidation. Subcentimeter calcified granulomas in the lungs bilaterally. Pleural spaces: Unremarkable. No pleural effusion. No pneumothorax. Heart/Mediastinum: Unremarkable. No cardiomegaly. Bones/joints: No acute osseous abnormality. Anterior cervical disc fusion hardware is visualized. XR/XR chest 1V portable [id number] IMPRESSION: Slightly more pronounced right basilar opacity likely representing atelectasis although superimposed infection is not excluded.
--- OUTSIDE RECORDS SUMMARY | 2024-11-29 13:22 | XMS_ITS | Encounter Summary ---
Author Organization [employer] Address 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
--- OUTSIDE RECORDS SUMMARY | 2024-11-29 13:22 | XMS_ITS | Encounter Summary ---
Author Organization [facility] Address [address] [place] [address] Care Team Providers Care Director Of Outreach Name Role Phone Non-Staff, Physician Primary Care Provider Unava ilable Encounter Details Date Type Department Care Team (Latest Contact Info) Description 12/02/[address] 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
--- OUTSIDE RECORDS SUMMARY | 2024-11-29 13:22 | XMS_ITS | Encounter Summary ---
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
--- OUTSIDE RECORDS SUMMARY | 2024-11-29 13:22 | XMS_ITS | Encounter Summary ---
Author Organization [facility] Address [address] [place] [address] Care Team Providers Care Dairy Nutritionist Name Role Phone Non-Staff, Physician Primary Care Provider Unava ilable Encounter Details Date Type Department Care Team (Latest Contact Info) Description 12/29/2001 [facility] [address] [address] Leonard José Jr., DO NO ADDRESS ON FILE Sprain thoracic region (Primary Dx) Social History Tobacco Use Types Packs/Day Years Used Date Smoking Tobacco: Never Assessed Comments Unknown Sex and Gender Information Value Date Recorded Sex Assigned at Not on file 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
--- OUTSIDE RECORDS SUMMARY | 2024-11-29 13:22 | XMS_ITS | Clinical Summary ---
Author Organization [employer] Address [address] [facility] Attn: Epic Prelude ADT CARROL MINER [address] Care Team Providers Care Latin Dance Instructor Name Role Phone Conrad Amaya MD Primary Care Provider [phone] Allergies Active Allergy Reactions Criticality Noted Date [...] tongue every 8 hours as needed for Nausea/Emesis . Dissolve 1 tablet on top of tongue then swallow with saliva every 8 hours as needed for nausea or vomiting 10 Tablet 2 09/01/19 25 Active escitalopram oxalate (LEXAPRO) 10 mg tabletIndication s:Recurrent major depressive disorder, in partial remission TAKE 1 TABLET(10 MG) BY MOUTH DAILY 100 Tablet 1 09/03/19 25 Active amLODIPine (NORVASC) 10 mg tabletIndication s:Primary hypertension TAKE 1 TABLET(10 MG) BY MOUTH DAILY 100 Tablet 11/02/19 25 Active ferrous sulfate 325 mg (65 mg iron) tablet Take 1 Tablet (325 mg) by mouth 2 times daily for 10 days. 20 Tablet 11/22/19 25 025 Active ascorbic acid, vitamin C, (Vitamin C) 500 mg tablet Take 1 Tablet (500 mg) by mouth 2 times daily for 10 days. 20 Tablet 11/22/19 25 025 Active amLODIPine (NORVASC) 10 mg tabletIndication s:Primary hypertension TAKE 1 TABLET(10 MG) BY MOUTH DAILY 100 Tablet 09/30/19 25 025 Discontinued predniSONE (DELTASONE) 20 mg tablet Take 1 Tablet (20 mg) by mouth daily with breakfast for 3 days. 3 Tablet 11/22/19 25 025 guaiFENesin (MUCINEX) 600 mg Extended Release Biphasic tablet Take 1 Tablet (600 mg) by mouth 2 times daily for 5 days. 10 Tablet 11/22/19 25 025 azithromycin (ZITHROMAX) 250 mg tablet Take 2 Tablets (500 mg) by mouth daily for 1 day, THEN 1 Tablet (250 mg) daily for 4 days. 6 Tablet 11/22/19 25 025 Active Problems Problem Noted Date Diagnosed Date Obstructive chronic bronchitis with exacerbation 11/21/2024 Chronic blood loss anemia 11/21/2024 Viral gastroenteritis 06/16/2024 Chronic pancreatitis 03/08/2024 Irritable bowel syndrome with diarrhea 4 Migraine with aura and witho ut status migrainosus, not intractable 09/11/2023 RUQ abdominal pain 05/08/2023 Tobacco use 02/10/2023 History of hepatitis C 02/10/2023 GERD (gastroesophageal reflux disease) 3 History of methamphetamine abuse 02/10/2023 Medical clearance [...] Encounters Date Type Department Care Team Description 11/29/2024 Telephone [facility] [address] [facility] [address] [place] [address] Conrad Amaya MD Information 11/28/2024 Results Follow-Up [address] [phone] Sandie Diaz FNP IRON, TIBC, AND PERCENT SATURATION 11/25/2024 1:40 PM CDT Office Visit [address] [phone] Sandie Diaz FNP Anemia, unspecified type (Primary Dx); Other cirrhosis of liver (CMS/HCC); Viral gastroenteritis; Chronic blood loss anemia 11/23/2024 Nurse Triage [place] [address] [address] [place] [phone] Manju Magaña RN 11/22/2024 External Device Data [facility] Provider, Abstract 11/22/2024 External Device Data [facility] Provider, Abstract 11/22/2024 External Device Data [facility] Provider, Abstract 11/21/2024 1:27 PM CDT - 11/21/2024 2:47 PM CDT Emergency [facility] Emergency Medicine [address] [phone] Geneva Miller MD Gastroesophageal reflux disease with esophagitis without hemorrhage (Primary Dx); Obstructive chronic bronchitis with exacerbation ([facility]/HCC); Chronic blood loss anemia Discharge Disposition: Home or Self Care 11/21/2024 Travel 11/16/[address] [phone] Conrad Amaya MD 11/16/2024 Orders Only [facility] [address] [place] [address] Provider, Abstract 11/01/[address] [phone] Conrad Amaya MD Primary hypertension 10/18/2024 External Device Data [facility] Provider, Abstract 10/18/2024 External Device Data [facility] Provider, Abstract 10/03/2024 Orders Only [facility] [address] [place] [phone] Provider, Abstract 09/29/[address] [phone] Conrad Amaya MD Primary hypertension 09/20/[address] [phone] Conrad Amaya MD 09/20/2024 Orders Only [facility] [address] [place] [address] Provider, Abstract 09/19/2024 Orders Only [facility] [address] [place] [address] Provider, Abstract 09/13/2024 External Device Data [facility] Provider, Abstract [facility] [address] [phone] Conrad Amaya MD Recurrent major depressive disorder, in partial remission; Irritable bowel syndrome with diarrhea 08/31/[address] [phone] Conrad Amaya MD Medication Question from Last 3 Months Immunizations Immunization Administration [...] History Relation Name Comments Heart Disease Brother [place] Cancer Father lymphoma Diabetes Mother Hypertension Mother [...] on file Legal 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 Gender Identity Not on file Sexual [...] Mass Index 29.28 11/25/2024 1:26 PM CDT Plan of Treatment Health Maintenance Due Date Last Done Comments BREAST CANCER SCREENING 1999 FIT-DNA Q 3 years 2004 FIT/FOBT Q 1 year 2004 Flex Sig/CT Colonography Q 5 years 2004 DTAP/TDAP/TD VACCINES (1 - Tdap) 03/01/2005 02/29/20 05 ZOSTER VACCINE (1 of 2) 2009 PNEUMOCOCCAL VACCINE 50+ YEA RS (2 of 2 - PCV) 12/27/2018 12/27/2017 RSV VACCINE (60+ or ) (1 - Risk 60-74 years 1-dose series) 2019 OSTEOPOROSIS SCREENING 2024 Medicare Advantage (CT) Preventative Visit/Annual Wellness Visit 05/18/2024 COVID-19 Vaccine (5 - 2023-2 5 season) 2024 02/24/2024, 07/13/2023, 10/23/2021, Additional history exists INFLUENZA VACCINE (#1) 2024 , 09/11/2023, 04/25/2019 Pre-Diabetes and Diabetes Screening 04/15/2026 04/15/2023, 11/01/2022 COLORECTAL SCREENING 08/30/2034 08/30/2024, 08/31/19 25 Colorectal Cancer Screening 08/30/2034 Procedures Procedure Name Priority Date/Time Associated Diagnosis Comments IRON, TIBC, AND PERCENT SATURATION Routine 11/25/2024 1:57 PM CDT Anemia, unspecified type DIFFERENTIAL, MANUAL Stat 11/21/2024 2:10 PM CDT CBC WITH DIFFERENTIAL Stat 11/21/2024 2:10 PM CDT COVID-19 ANTIGEN Stat 11/21/2024 1:43 PM CDT INFLUENZA VIRUS A AND B, ANTIGEN DETECTION Stat 11/21/2024 1:43 PM CDT COMPREHENSIVE METABOLIC PANEL Routine 11/14/2024 10:06 AM CDT PROTIME-INR Routine 11/14/2024 COMPREHENSIVE METABOLIC PANEL Routine 09/30/2024 10:09 AM CDT COMPREHENSIVE METABOLIC PANEL Routine 09/16/2024 10:45 AM CDT ENDOSCOPY, COLON, SCREENING Routine 08/30/2024 9:34 AM CDT HEMOGLOBIN A1C Routine 04/15/2023 from Last 3 Months or Most Recently Relevant to Health Maintenance Results * (ABNORMAL) IRON, TIBC, AND PERCENT SATURATION (11/25/2024 1:57 PM CDT) Pathologist [facility] IRON 36(L) 45 - 160 mcg/dL [facility] TIBC 311 250 - 450 mcg/dL (calc) [facility] IRON % SATURATION 12(L) 16 - 45 % (calc) [facility] Comment: Test Performed at: [facility] [address] Mauri Wall MD Blood 11/25/2024 1:57 PM CDT 11/26/2024 3:25 AM CDT us Sandie Diaz [facility] CHEMISTRY ORDERABLES Final Result Performing Organization Address City[facility]/ZIP Co de Phone Number [facility] [phone] [facility] [place] [address] * MANUAL DIFFERENTIAL (11/21/2024 2:10 PM CDT) Pathologist [facility] PLATELET EST. Consistent w Count 11/21/2024 2:[address] [facility] HYPOCHROMIA 1+ /hpf 11/21/2024 2:[address] [facility] Blood Venipuncture / Unknown 11/21/2024 2:10 PM CDT 11/21/2024 2:17 PM CDT us Geneva Miller MD HEMATOLOGY ORDERABLES COM Final Result [facility] CLIA # [id number] [address] [place] [phone] * (ABNORMAL) CBC WITH DIFFERENTIAL (11/21/2024 2:10 PM CDT) WBC 4.0 4.0 - 10.0 K/uL 11/21/2024 2:36 PM [facility] RBC 4.03 3.93 - 5.22 M/uL 11/21/2024 2:36 PM [facility] HEMOGLOBIN 8.6(L) 11.2 - 15.7 g/dL 11/21/2024 2:36 PM [facility] HEMATOCRIT 29.0(L) 34.1 - 44.9 % 11/21/2024 2:36 PM [facility] MCV 72.0(L) 79.4 - 94.8 fL 11/21/2024 2:36 PM [facility] MCH 21.3(L) 25.6 - 32.2 pg 11/21/2024 2:36 PM [facility] MCHC 29.7(L) 32.2 - 35.5 g/dL 11/21/2024 2:36 PM [facility] RDW 16.5(H) 11.0 - 14.5 % 11/21/2024 2:36 PM [facility] RDW-STDEV 42.5 36.9 - 56.9 fL 11/21/2024 2:36 PM [facility] PLATELETS 161(L) 163 - 337 K/uL 11/21/2024 2:36 PM [facility] MPV 11.5 10.0 - 14.8 fL 11/21/2024 2:36 PM [facility] NEUTROPHILS 59 34 - 71 % 11/21/2024 2:36 PM [facility] LYMPHOCYTES 28 19 - 52 % 11/21/2024 2:36 PM [facility] MONOCYTES 9 5 - 13 % 11/21/2024 2:36 PM [facility] EOSINOPHILS 4 1 - 6 % 11/21/2024 2:36 PM [facility] BASOPHILS 1 0 - 1 % 11/21/2024 2:[address] [facility] IMMATURE GRANULOCYTES 0 % 11/21/2024 2:[address] [facility] NEUTROPHIL ABSOLUTE 2.32 1.56 - 6.13 K/uL 11/21/2024 2:[address] [facility] LYMPHOCYTE ABSOLUTE 1.10(L) 1.20 - 3.40 K/uL 11/21/2024 2:[address] [facility] MONOCYTE ABSOLUTE 0.36 0.24 - 0.36 K/uL 11/21/2024 2:[address] [facility] EOSINOPHIL ABSOLUTE 0.14 0.04 - 0.36 K/uL 11/21/2024 2:[address] [facility] BASOPHILS ABSOLUTE 0.03 0.01 - 0.08 K/uL 11/21/2024 2:[address] [facility] IMMATURE GRANULOCYTES ABSOLUTE 0.01 K/uL 11/21/2024 2:[address] [facility] Blood Venipuncture / Unknown 11/21/2024 2:10 PM CDT 11/21/2024 2:17 PM CDT us Geneva Miller MD HEMATOLOGY ORDERABLES Final Res ult [facility] # [id number] [address] [place] [address] * COVID-19 ANTIGEN (11/21/2024 1:43 PM CDT) COVID-19 ANTIGEN Presumptive Negative Presumptive Negative 11/21/2024 2:[address] [facility] Upper Respiratory ANTERIOR NARES SWAB / Unknown Collection / Unknown 11/21/2024 1:43 PM CDT 11/21/2024 1:[address] [facility] - 11/21/2024 2:19 PM CDT Donita SARS antigen test has been authorized by FDA under an emergency use authorization (EUA) and has been authorized only for the detection of proteins from SARS-CoV-2 and influenza, not for any other viruses or pathogens. Donita SARS Antigen JOHNY is intended for the simultaneous qualitative detection and differentiation of nucleocapsid protein antigen from SARS-CoV-2 directly from nasopharyngeal (BROADCAST NEWS PRODUCER) and nasal (NS) swab specimens collected from individuals who are suspected of respiratory viral infection consistent with COVID-19 by their healthcare provider within the first five (5) days of symptom onset when tested at least twice over three days with at least 48 hours between tests, or from individuals without symptoms or other epidemiological reasons to suspect COVID-19 when tested at least three times over five days with at least 48 hours between tests. This test is only authorized for the duration of the declaration that circumstances exist justifying the authorization of emergency use of in vitro diagnostics for detection and/or diagnosis of the virus that causes COVID-19 under Section 564(b)(1) of the Act, 21 U.S.C. 360bbb-3(b)(1), unless the authorization is terminated or revoked sooner. Negative results should be treated as presumptive and confirmed with a molecular assay, if necessary for patient care. Serial testing should be performed in individuals with negative results at least twice over three days (with 48 hours between tests) for symptomatic individuals or from individuals without symptoms or other epidemiological reasons to suspect COVID-19 when tested at least three times over five days with at least 48 hours between tests. us Geneva Miller MD MICROBIOLOGY - GENERAL ORDERABL ES Final Result [id number] [address] [place] [address] * INFLUENZA VIRUS A AND B, ANTIGEN DETECTION (11/21/2024 1:43 PM CDT) INFLUENZA A AG NOT DETECTED Not Detected 11/21/2024 2:[address] [facility] INFLUENZA B AG NOT DETECTED Not Detected 11/21/2024 2:[address] [facility] Upper Respiratory ENTIRE NASOPHARYNX / Unknown Collection / Unknown 11/21/2024 1:43 PM CDT 11/21/2024 1:[address] [facility] - 11/21/2024 2:19 PM CDT Negative results do not rule out infection. If clinically indicated, consider PCR testing which is more sensitive than antigen testing. If PCR testing is desired, consult with your local laboratory as sample recollection may be required. us Geneva Miller MD MICROBIOLOGY - GENERAL ORDERABL ES Final Result [facility] CLIA # [id number] [address] [place] [address] * COMPREHENSIVE METABOLIC PANEL (11/14/2024 10:06 AM CDT) Only the most recent of3 resultswithin the time period is included. Blood us Abstract Provider CHEMISTRY ORDERABLES Final Res ult * PROTIME-INR (11/14/2024) ABSTRACTED PROTIME 14.8 ABSTRACTED INR 1.08 Blood 11/14/2024 us Abstract Provider HEMATOLOGY ORDERABLES Final Re sult * ENDOSCOPY, COLON, SCREENING (08/30/2024 9:34 AM CDT) us Abstract Provider GI PROCEDURE ORDERABLES Final Result * HEMOGLOBIN A1C (04/15/2023) ABSTRACTED HGB A1C 4.9 Blood 04/15/2023 us Abstract Provider CHEMISTRY ORDERABLES Final Res ult from Last 3 Months or Most Recently Relevant to Health Maintenance Insurance MEDICAID [place] [facility] DUAL ADVANTAGE [address] [place] [address] [facility] [place]ICAID [place] [address] [place] [address] [address] [facility] Medicare Part D MEDICAID [place] Advance Directives For more information, please contact: [phone] * Full Code (Latest Code Status on [...] 1:49 AM 08/24/2021 2:38 PM Care Teams Latin Dance Instructor Relationship Specialty Start Date End Date Conrad Amaya MD [address] [phone] PCP - General Family Practice 02/10/23
--- OUTSIDE RECORDS SUMMARY | 2024-11-29 13:22 | XMS_ITS | Encounter Summary ---
Author Organization [facility] Address [address] [place] [address] Care Team Providers Care Experimental Box Tester Name Role Phone Non-Staff, Physician Primary Care Provider Unava ilable Encounter Details Date Type Department Care Team (Latest Contact Info) Description 05/22/2005 Outpatient Historical [facility] [address] [place] [phone] Jere Denny MD NO ADDRESS ON FILE LUMB/LUMBOSAC DISC DEGEN (Primary Dx); Lumbar disc displacement; LUMBAGO; Lumbosacral spondylosis Social History Tobacco Use Types Packs/Day Years Used Date Smoking Tobacco: Never Assessed Comments Unknown Sex and Gender Information Value Date Recorded Sex Assigned at Not on file 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 Gender Identity Not on file Sexual Orientation Not on file documented as of this encounter Plan of Treatment Not on file documented as of this encounter Visit Diagnoses Diagnosis Degeneration of lumbar or lumbosacral intervertebral disc- Primary Lumbar disc displacement Displacement of lumbar intervertebral disc without myelopathy Lumbago Lumbosacral spondylosis Lumbosacral spondylosis without myelopathy documented in this encounter Care Teams Experimental Box Tester Relationship Specialty Start Date End Date Non-Staff, Physician NO ADDRESS ON FILE PCP - General 06/17/20 documented as of this encounter
--- OUTSIDE RECORDS SUMMARY | 2024-11-29 13:22 | XMS_ITS | Encounter Summary ---
Author Organization [facility] Address [address] [place] [address] Care Team Providers Care Station Repairer Name Role Phone Non-Staff, Physician Primary Care Provider Unava ilable Encounter Details Date Type Department Care Team (Latest Contact Info) Description 05/24/[address] [facility] Emergency Department [address] 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
--- OUTSIDE RECORDS SUMMARY | 2024-11-29 13:22 | XMS_ITS | Clinical Summary ---
Author Organization [facility] [employer] Address [address] 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 Gender Identity Not on file Sexual Orientation Not on file Occupation Industry Job Start Date Job End Date Not on file Not on file Not on file Not on file Not on file Not on file Not on file Not on file Last Filed Vital Signs Vital Sign Reading Time Taken Comments Blood Pressure 158/90 06/17/2020 8:05 PM RESOURCE ROOM TEACHER Pulse 100 12/06/2018 11:51 AM CDT Temperature 37.2 C (99 F) 06/17/2020 8:05 PM RESOURCE ROOM TEACHER Respiratory Rate 20 06/17/2020 8:05 PM RESOURCE ROOM TEACHER Oxygen Saturation 97% 06/17/2020 8:05 PM RESOURCE ROOM TEACHER Inhaled Oxygen Concentration - - Weight 64 kg (141 lb) 06/17/2020 6:40 PM RESOURCE ROOM TEACHER Height 162.6 cm (5' 4 ) 06/17/2020 6:40 PM RESOURCE ROOM TEACHER Body Mass Index 24.2 06/17/2020 6:40 PM RESOURCE ROOM TEACHER Plan of Treatment Health Maintenance Due Date [...] years 1-dose series) 2019 OSTEOPOROSIS SCREENING 2024 INFLUENZA VACCINE (#1) 2024 04/25/2019 Insurance MEDICARE PART A AND B MEDICAID [place] Advance Directives For more information, please contact: [phone] * Full Code (Latest Code Status on File) Date Activated Date Inactivated Comments 12/04/2018 1:26 AM 12/06/2018 5:28 PM Care Teams Financial Planning Analyst Relationship Specialty Start Date End Date Non-Staff, Physician NO ADDRESS ON FILE PCP - General 06/17/20
--- OUTSIDE RECORDS SUMMARY | 2024-11-29 13:22 | XMS_ITS | Encounter Summary ---
Author Organization [facility] Address [address] [place] [address] Care Team Providers Care Dethistler Operator Name Role Phone Non-Staff, Physician Primary Care Provider Unava ilable Encounter Details Date Type Department Care Team (Latest Contact Info) Description 10/04/2001 Outpatient Historical [facility] [address] [facility] [address] [place] [address] Leonard José Jr., DO NO ADDRESS ON FILE VIRAL WARTS NOS (Primary Dx); GENERALIZED ANXIETY DIS Social History Tobacco Use Types Packs/Day Years Used Date Smoking Tobacco: Never Assessed Comments Unknown Sex and Gender Information Value Date Recorded Sex Assigned at Not on file Legal Sex Female 2:[address] Gender Identity Not on file Sexual Orientation Not on file documented as of this encounter Plan of Treatment Not on file documented as of this encounter Visit Diagnoses Diagnosis Viral warts, unspecified- Primary Generalized anxiety disorder documented in this encounter Care Teams Dethistler Operator Relationship Specialty Start Date End Date Non-Staff, Physician NO ADDRESS ON FILE PCP - General 06/17/20 documented as of this encounter
--- OUTSIDE RECORDS SUMMARY | 2024-11-29 13:22 | XMS_ITS | Encounter Summary ---
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
--- OUTSIDE RECORDS SUMMARY | 2024-11-29 13:22 | XMS_ITS | Encounter Summary ---
Author Organization [facility] Address 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 Martha Bowen LPN, 11/29/2024 12:58 PM * Telephone Encounter - Bettye Byrnes - 11/29/2024 12:40 PM CDT Copied from [facility] #[id number]. Topic: Reschedule/Cancel Appointment/Late Arrival >> Nov 29, 2024 12:37 PM Bettye Sánchez wrote: Caller is requesting to cancel appointment. Call Notes: The patient is cancelling and going to the hospital--Patient wanted the provider to know so sending to FIELD OPERATIONS COORDINATOR Pool. Call was received:less than 2 hours before appointment (up to time of appointment). documented in this encounter Plan of Treatment Not on file documented as of this encounter Visit Diagnoses Not on filedocumented in this encounter Additional Health Concerns Assessment Noted Time PHQ-9 Depression Total Score: 1 11/26/19 25 1:28 PM CDT documented as of this encounter Care Teams Project Engineer Chemicals Relationship Specialty Start Date End Date Conrad Amaya MD [address] [phone] PCP - General Family Practice 02/10/23 documented as of this encounter
--- OUTSIDE RECORDS SUMMARY | 2024-11-29 13:22 | XMS_ITS | Encounter Summary ---
Author Organization [facility] Address [address] [place] [address] Care Team Providers Care Sand Cutter Name Role Phone Non-Staff, Physician Primary Care Provider Unava ilable Encounter Details Date Type Department Care Team (Late st Contact Info) Description 10/23/2003 Emergency [facility] Emergency Department [address] 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
--- OUTSIDE RECORDS SUMMARY | 2024-11-29 13:22 | XMS_ITS | Encounter Summary ---
Author Organization [employer] Address 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
--- OUTSIDE RECORDS SUMMARY | 2024-11-29 13:22 | XMS_ITS | Encounter Summary ---
Author Organization [facility] Address [address] [place] [address] Care Team Providers Care Chair Post Machine Operator Name Role Phone Conrad Amaya MD Primary Care Provider [phone] Reason for Visit * Reason Onset Date Comments Results 11/28/2024 Patient Communication Encounter Details Date Type Department Care Team (Late st Contact Info) Description 11/28/2024 Results Follow-Up [facility] [place] [address] [id number] Sandie Diaz, [facility] [address] [address] IRON, TIBC, AND PERCENT SATURATION Social History Tobacco Use Types Packs/Day Years [...] on file Legal Sex Female 1:39 PM COUNTER HAND Gender Identity Not on file Sexual Orientation Not on file documented as of this encounter Miscellaneous Notes * Telephone Encounter - Emily Fay - 11/29/2024 12:29 PM CDT Mailed results.Emily Fay, 11/29/2024 12:29 PM * Telephone Encounter - Emily Fay - 11/29/2024 12:29 PM CDT ----- Message from Nurse Krystyna Harvey sent at 11/29/2024 9:14 AM CDT ----- Regarding: Results Printed on 4. Please mail results to patient. ----- Message ----- From: Sandie Diaz FNP Sent: 11/28/2024 9:08 AM CDT To: [facility] [place] Nurse Iron is low. Is she already taking supplementation? * Telephone Encounter - Roma Dan - 11/29/2024 11:20 AM CDT Copied from [facility] #[id number]. Topic: CPA Information Request >> Nov 29, 2024 11:19 AM Roma Ware wrote: Caller is returning phone call from clinic. Caller Name: Stella Covarrubias Patient/Caregiver Callback Number: [phone] (mobile) Clinic Left Note In Chart Is there a note from the clinic requesting the caller be transferred when they call back? 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 Yes Call Notes: Communicated information that is documented in the note. Caller does not want a call back from clinic. - she stated yes she is taking supplementation * Telephone Encounter - Krystyna Harvey RN - 11/29/2024 9:13 AM CDT 11/29/2024 9:13 AM No answer. Left voice mail/message that communication regarding results will be sent via [employer] Mail. No need to return call unless specific questions. If patient/caregiver calls back, contact center please tell caller to review the information which will be sent via US Mail and call back with any questions. Krystyna RN * Telephone Encounter - Krystyna Harvey RN - 11/28/2024 3:18 PM CDT 11/28/2024 3:18 PM No answer. Left voice mail/message that patient/caregiver can return our call. If patient/caregivercalls back, contact center per JAISON CastilloP :Iron is low. Is she already taking supplementation? Krystyna RN * Telephone Encounter - Fernanda Goff RN - 11/28/2024 9:52 AM CDT 11/28/2024 9:52 AM No answer. Left voice mail/message that patient/caregiver can return our call. If patient/caregivercalls back, contact center per Sandie Diaz, HOME INSPECTOR :Iron is low. Is she already taking supplementation? Fernanda JAMES * Telephone Encounter - Fernanda Goff RN - 11/28/2024 9:52 AM CDT ----- Message from Sandie Diaz sent at 11/28/2024 9:08 AM CDT ----- Iron is low. Is she already taking supplementation? documented in this encounter Plan of Treatment Not on file documented as of this encounter Visit Diagnoses Not on filedocumented in this encounter Additional Health Concerns Assessment Noted Time PHQ-9 Depression Total Score: 1 11/26/19 25 1:28 PM CDT documented as of this encounter Care Teams Chair Post Machine Operator Relationship Specialty Start Date End Date Conrad Amaya MD [address] [id number] PCP - General Family Practice 02/10/23 documented as of this encounter
--- OUTSIDE RECORDS SUMMARY | 2024-11-29 13:22 | XMS_ITS | Patient Health Record ---
Author Organization [facility] Address [address] [place] [address] Care Team Providers Care Extension Course Counselor Name Role Phone Conrad Amaya MD Primary Care Provider Lauren Gallagher Unavailable DailyChaitanya rodriguez Unavailable [phone] Allergies Allergen (clinical drug ingredient) Drug/Non Drug [...] 05/25/2008 Active Results Component Value Reference Range Flag Notes Urine Drug Screen (cup read) - [id number] Reviewed date:04/11/2024 09:37:20 AM Interpretation: Performing Lab: Notes/Report: AMP - YOLY - BUP - BZO - MDMA - OPI + PCP - OXY - MTD - MAMP - Urine Drug Screen (cup read) - [id number] Reviewed date:07/20/2024 07:29:42 AM Interpretation:Positive Performing Lab: Notes/Report: Positive OXY + Urine Confirmation Panel (in strument) - [id number] Reviewed date:07/21/2024 12:05:40 PM Interpretation: Performing Lab: Notes/Report: 6-Acetylmorphine 0 <6 ng/mL N This macho t was developed and its performance characteristics determined by [facility]. It has not been cleared or approved by the U.S. Food and Drug Administration. 7-Aminoclonazepam 0 <60 ng/mL N This te st was developed and its performance characteristics determined by [facility]. It has not been cleared or approved by the U.S. Food and Drug Administration. Alprazolam 0 <60 ng/mL N This test was developed and its performance characteristics determined by [facility]. It has not been cleared or approved by the U.S. Food and Drug Administration. Amphetamine 0 <75 ng/mL N This test was developed and its performance characteristics determined by [facility]. It has not been cleared or approved by the U.S. Food and Drug Administration. aOH-Alprazolam 0 <60 ng/mL N This test was developed and its performance characteristics determined by [facility]. It has not been cleared or approved by the U.S. Food and Drug Administration. Buprenorphine 0.0 <7.5 ng/mL N This test w as developed and its performance characteristics determined by [facility]. It has not been cleared or approved by the U.S. Food and Drug Administration. Norbuprenorphine 0.0 <37.5 ng/mL N This te st was developed and its performance characteristics determined by [facility]. It has not been cleared or approved by the U.S. Food and Drug Administration. Carisoprodol 0 <75 ng/mL N This test wa s developed and its performance characteristics determined by [facility]. It has not been cleared or approved by the U.S. Food and Drug Administration. Codeine 0 <75 ng/mL N This test was developed and its performance characteristics determined by [facility]. It has not been cleared or approved by the U.S. Food and Drug Administration. EDDP 0 <75 ng/mL N This test was developed and its performance characteristics determined by [facility]. It has not been cleared or approved by the U.S. Food and Drug Administration. Fentanyl 0 <6 ng/mL N This test was developed and its performance characteristics determined by [facility]. It has not been cleared or approved by the U.S. Food and Drug Administration. Hydrocodone 165 <75 ng/mL H This test was developed and its performance characteristics determined by [facility]. It has not been cleared or approved by the U.S. Food and Drug Administration. Hydromorphone 82 <75 ng/mL H This test w as developed and its performance characteristics determined by [facility]. It has not been cleared or approved by the U.S. Food and Drug Administration. Lorazepam 0 <60 ng/mL N This test was developed and its performance characteristics determined by [facility]. It has not been cleared or approved by the U.S. Food and Drug Administration. MDMA 7 <75 ng/mL N This test was developed and its performance characteristics determined by [facility]. It has not been cleared or approved by the U.S. Food and Drug Administration. Meperidine 0.0 <37.5 ng/mL N This test was developed and its performance characteristics determined by [facility]. It has not been cleared or approved by the U.S. Food and Drug Administration. Meprobamate 0 <75 ng/mL N This test was developed and its performance characteristics determined by [facility]. It has not been cleared or approved by the U.S. Food and Drug Administration. Methamphetamine 7 <75 ng/mL N This test was developed and its performance characteristics determined by [facility]. It has not been cleared or approved by the U.S. Food and Drug Administration. Methadone 0 <75 ng/mL N This test was developed and its performance characteristics determined by [facility]. It has not been cleared or approved by the U.S. Food and Drug Administration. Morphine 0 <75 ng/mL N This test was developed and its performance characteristics determined by [facility]. It has not been cleared or approved by the U.S. Food and Drug Administration. Nordiazepam 0 <60 ng/mL N This test was developed and its performance characteristics determined by [facility]. It has not been cleared or approved by the U.S. Food and Drug Administration. Norfentanyl 0 <6 ng/mL N This test was developed and its performance characteristics determined by [facility]. It has not been cleared or approved by the U.S. Food and Drug Administration. Normeperidine 0.0 <37.5 ng/mL N This test was developed and its performance characteristics determined by [facility]. It has not been cleared or approved by the U.S. Food and Drug Administration. O-desmethyltramadol 0 <75 ng/mL N This test was developed and its performance characteristics determined by [facility]. It has not been cleared or approved by the U.S. Food and Drug Administration. Oxazepam 0 <60 ng/mL N This test was developed and its performance characteristics determined by [facility]. It has not been cleared or approved by the U.S. Food and Drug Administration. Oxycodone 1867.1 <37.5 ng/mL H This test was developed and its performance characteristics determined by [facility]. It has not been cleared or approved by the U.S. Food and Drug Administration. Oxymorphone 733 <75 ng/mL H This test was developed and its performance characteristics determined by [facility]. It has not been cleared or approved by the U.S. Food and Drug Administration. Phencyclidine 0.0 <7.5 ng/mL N This test w as developed and its performance characteristics determined by [facility]. It has not been cleared or approved by the U.S. Food and Drug Administration. Tapentadol 0.0 <37.5 ng/mL N This test was developed and its performance characteristics determined by [facility]. It has not been cleared or approved by the U.S. Food and Drug Administration. Temazepam 0 <60 ng/mL N This test was developed and its performance characteristics determined by [facility]. It has not been cleared or approved by the U.S. Food and Drug Administration. Tramadol 9 <75 ng/mL N This test was developed and its performance characteristics determined by [facility]. It has not been cleared or approved by the U.S. Food and Drug Administration. Norhydrocodone 204 <75 ng/mL H This test was developed and its performance characteristics determined by [facility]. It has not been cleared or approved by the U.S. Food and Drug Administration. Noroxycodone 1936 <38 ng/mL H This test wa s developed and its performance characteristics determined by [facility]. It has not been cleared or approved by the U.S. Food and Drug Administration. Pregabalin 0 <225 ng/mL N This test was developed and its performance characteristics determined by [facility]. It has not been cleared or approved by the U.S. Food and Drug Administration. Gabapentin 0 <225 ng/mL N This test was developed and its performance characteristics determined by [facility]. It has not been cleared or approved by the U.S. Food and Drug Administration. Benzoylecgonine 0.0 <37.5 ng/mL N This macho t was developed and its performance characteristics determined by [facility]. It has not been cleared or approved by the U.S. Food and Drug Administration. 4-Hydroxy Xylazine 0 <25 ng/mL N This t est was developed and its performance characteristics determined by [facility]. It has not been cleared or approved by the U.S. Food and Drug Administration. Urine Drug Screen (cup read) - [id number] Reviewed date:10/25/2024 09:08:04 AM Interpretation: Performing Lab: Notes/Report: AMP - YOLY - BUP - BZO - MDMA - OPI + PCP - OXY + MTD - MAMP - Urine Confirmation Panel (in strument) - [id number] Reviewed date:11/01/2024 12:43:28 PM Interpretation: Performing Lab: Notes/Report: 6-Acetylmorphine 0 <6 ng/mL N This macho t was developed and its performance characteristics determined by [facility]. It has not been cleared or approved by the U.S. Food and Drug Administration. 7-Aminoclonazepam 0 <60 ng/mL N This te st was developed and its performance characteristics determined by [facility]. It has not been cleared or approved by the U.S. Food and Drug Administration. Alprazolam 0 <60 ng/mL N This test was developed and its performance characteristics determined by [facility]. It has not been cleared or approved by the U.S. Food and Drug Administration. Amphetamine 155 <75 ng/mL H This test was developed and its performance characteristics determined by [facility]. It has not been cleared or approved by the U.S. Food and Drug Administration. aOH-Alprazolam 0 <60 ng/mL N This test was developed and its performance characteristics determined by [facility]. It has not been cleared or approved by the U.S. Food and Drug Administration. Buprenorphine 0.0 <7.5 ng/mL N This test w as developed and its performance characteristics determined by [facility]. It has not been cleared or approved by the U.S. Food and Drug Administration. Norbuprenorphine 0.0 <37.5 ng/mL N This te st was developed and its performance characteristics determined by [facility]. It has not been cleared or approved by the U.S. Food and Drug Administration. Carisoprodol 0 <75 ng/mL N This test wa s developed and its performance characteristics determined by [facility]. It has not been cleared or approved by the U.S. Food and Drug Administration. Codeine 0 <75 ng/mL N This test was developed and its performance characteristics determined by [facility]. It has not been cleared or approved by the U.S. Food and Drug Administration. EDDP 0 <75 ng/mL N This test was developed and its performance characteristics determined by [facility]. It has not been cleared or approved by the U.S. Food and Drug Administration. Fentanyl 0 <6 ng/mL N This test was developed and its performance characteristics determined by [facility]. It has not been cleared or approved by the U.S. Food and Drug Administration. Hydrocodone >5000 <75 ng/mL > This test was developed and its performance characteristics determined by [facility]. It has not been cleared or approved by the U.S. Food and Drug Administration. Hydromorphone 366 <75 ng/mL H This test w as developed and its performance characteristics determined by [facility]. It has not been cleared or approved by the U.S. Food and Drug Administration. Lorazepam 0 <60 ng/mL N This test was developed and its performance characteristics determined by [facility]. It has not been cleared or approved by the U.S. Food and Drug Administration. MDMA 0 <75 ng/mL N This test was developed and its performance characteristics determined by [facility]. It has not been cleared or approved by the U.S. Food and Drug Administration. Meperidine 0.0 <37.5 ng/mL N This test was developed and its performance characteristics determined by [facility]. It has not been cleared or approved by the U.S. Food and Drug Administration. Meprobamate 0 <75 ng/mL N This test was developed and its performance characteristics determined by [facility]. It has not been cleared or approved by the U.S. Food and Drug Administration. Methamphetamine 2103 <75 ng/mL H This test was developed and its performance characteristics determined by [facility]. It has not been cleared or approved by the U.S. Food and Drug Administration. Methadone 0 <75 ng/mL N This test was developed and its performance characteristics determined by [facility]. It has not been cleared or approved by the U.S. Food and Drug Administration. Morphine 0 <75 ng/mL N This test was developed and its performance characteristics determined by [facility]. It has not been cleared or approved by the U.S. Food and Drug Administration. Nordiazepam 0 <60 ng/mL N This test was developed and its performance characteristics determined by [facility]. It has not been cleared or approved by the U.S. Food and Drug Administration. Norfentanyl 0 <6 ng/mL N This test was developed and its performance characteristics determined by [facility]. It has not been cleared or approved by the U.S. Food and Drug Administration. Normeperidine 0.0 <37.5 ng/mL N This test was developed and its performance characteristics determined by [facility]. It has not been cleared or approved by the U.S. Food and Drug Administration. O-desmethyltramadol 0 <75 ng/mL N This test was developed and its performance characteristics determined by [facility]. It has not been cleared or approved by the U.S. Food and Drug Administration. Oxazepam 0 <60 ng/mL N This test was developed and its performance characteristics determined by [facility]. It has not been cleared or approved by the U.S. Food and Drug Administration. Oxycodone 0.0 <37.5 ng/mL N This test was developed and its performance characteristics determined by [facility]. It has not been cleared or approved by the U.S. Food and Drug Administration. Oxymorphone 0 <75 ng/mL N This test was developed and its performance characteristics determined by [facility]. It has not been cleared or approved by the U.S. Food and Drug Administration. Phencyclidine 0.0 <7.5 ng/mL N This test w as developed and its performance characteristics determined by [facility]. It has not been cleared or approved by the U.S. Food and Drug Administration. Tapentadol 0.0 <37.5 ng/mL N This test was developed and its performance characteristics determined by [facility]. It has not been cleared or approved by the U.S. Food and Drug Administration. Temazepam 0 <60 ng/mL N This test was developed and its performance characteristics determined by [facility]. It has not been cleared or approved by the U.S. Food and Drug Administration. Tramadol 66 <75 ng/mL N This test was developed and its performance characteristics determined by [facility]. It has not been cleared or approved by the U.S. Food and Drug Administration. Norhydrocodone >5000 <75 ng/mL > This test was developed and its performance characteristics determined by [facility]. It has not been cleared or approved by the U.S. Food and Drug Administration. Noroxycodone 0 <38 ng/mL N This test wa s developed and its performance characteristics determined by [facility]. It has not been cleared or approved by the U.S. Food and Drug Administration. Pregabalin 0 <225 ng/mL N This test was developed and its performance characteristics determined by [facility]. It has not been cleared or approved by the U.S. Food and Drug Administration. Gabapentin 0 <225 ng/mL N This test was developed and its performance characteristics determined by [facility]. It has not been cleared or approved by the U.S. Food and Drug Administration. Benzoylecgonine 0.0 <37.5 ng/mL N This macho t was developed and its performance characteristics determined by [facility]. It has not been cleared or approved by the U.S. Food and Drug Administration. 4-Hydroxy Xylazine 0 <25 ng/mL N This t est was developed and its performance characteristics determined by [facility]. It has not been cleared or approved by the U.S. Food and Drug Administration. Tox Results Reviewed date:07/21/2024 12:05:45 PM Interpretation: Performing Lab: Notes/Report: Tox Results Reviewed date:11/01/2024 12:17:37 PM Interpretation: Performing Lab: Notes/Report: Urine Drug Screen (cup read) - [id number] Reviewed date:11/22/2024 03:13:21 PM Interpretation: Performing Lab: Notes/Report: BZO + OPI + OXY + Shoulder Min 3V Right-[id number] Reviewed date:06/24/2024 11:51:27 AM Interpretation: Performing Lab: Notes/Report: zzzUrine Drug Screen (confir mation by instrument) - [id number] Reviewed date:04/12/2024 09:08:08 AM Interpretation: Performing Lab: Notes/Report: Reason For Referral Reason Evaluate and Treat Diagnosis 1 Spondylosis without myelopathy or radiculopathy, cervical region (M47.812) [facility] [place] Referring Provider First Name Lauren Referring Provider Last Name Jorge Clark Referring Provider Speciality Pain Medic ine Referred Provider [facility] Referred Provider Specialty Preventive M edicine Referral Priority Routine Reason referral per patient request for anxiety Diagnosis 1 Anxiety (F41.9) Referral [facility] Referring Provider First Name Lauren Referring Provider Last Name Jorge Clark Referring Provider Speciality Pain Medic ine Referred Provider Martha Chandler Referral Priority Routine Medications Medication SIG (Take, Route, Frequency, Duration) Notes Start Date End Date Status Methocarbamol 750 MG Tablet 1 tablet Orally every 4 hrs Active Pantoprazole Sodium Active HYDROcodone-Acetaminoph en 7.5-325 MG Tablet 1 tablet as needed Orally every 4-6 hrs; Duration: 30 days As needed Not to exceed 3 per day fill 12/24/24 may fill 1-2 days early if closed 5 01/24/20 25 Active Carisoprodol 350 MG Tablet 1 tab(s) po qid as needed for muscle spasms. Oral; Duration: 30 Carisoprodol 350mg Tablet 1 tab(s) po qid as needed for muscle spasms. 9 Unknown amLODIPine Besylate Active hydroCHLOROthiazide 25 MG Tablet Take 1 tablet(s) by mouth daily Oral; Duration: 30 Hydrochlorothiazide (HCTZ) 25mg Tablet Take 1 tablet(s) by mouth daily 9 Unknown Zofran Active Atenolol 25 MG Tablet Take 1 tablet(s) by mouth daily Oral; Duration: 30 Atenolol 25mg Tablet Take 1 tablet(s) by mouth daily 9 Unknown HYDROcodone-Acetaminoph en 7.5-325 MG Tablet 1 tablet as needed Orally every 4-6 hrs; Duration: 30 days As needed Not to exceed 3 per day fill 11/24/24 5 12/25/19 25 Active Escitalopram Oxalate Active HYDROcodone-Acetaminoph en 7.5-325 MG Tablet 1 tablet as needed Orally every 6 hrs Active Social History Social History Additional Details Category Social Info Options Details zzMigrated Social History Migrated Social History Occupation:Disabled Section Notes: smoker 5 cig/day denies alcohol denies street drugs denies rehab Currently disabled Not working smoker 5 cig/day denies alcohol denies street drugs denies rehab Currently disabled Not working smoker 5 cig/day denies alcohol denies street drugs denies rehab Currently disabled Not working smoker 5 cig/day denies alcohol denies street drugs denies rehab Currently disabled Not working smoker 5 cig/day denies alcohol denies street drugs denies rehab Currently disabled Not working smoker 5 cig/day denies alcohol denies street drugs denies rehab Currently disabled Not working Problems Problem Type SNOMED Code ICD Code Onset Dates Problem Status W/U Status Risk Notes Problem Chronic pain syndrome (497596815) Chronic pain syndrome (G89.4) Active confirmed Problem Localized, primary osteoarthritis of the shoulder region (587359503) Primary osteoarthritis, right shoulder (M19.011) Active confirmed Problem Cervical spondylosis without myelopathy (145085800) Spondylosis without myelopathy or radiculopathy, cervical region (M47.812) Active confirmed Problem High risk drug monitoring status (106602928) 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) Active confirmed Problem Myalgia of auxiliary muscles, head and neck (M79.12) Active confirmed Problem Anxiety (47774095) Anxiety (F41.9) Active confirmed Problem History of arthrodesis (860676899) History of fusion of cervical spine (Z98.1) Active confirmed Problem Localized, primary osteoarthritis of the shoulder region (792074124) 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) Active confirmed Problem Solitary sacroiliitis (475012383) Sacroiliac inflammation (M46.1) Active confirmed Problem Impingement syndrome of shoulder region (638764545) Subacromial impingement of right shoulder (M75.41) Active confirmed Problem Generalized anxiety disorder (59090136) Anxiety, generalized (300.02) 05/25/19 09 Active confirmed [id number] 11- Problem Chronic hepatitis C (473584314) Chronic hepatitis C (070.54) 05/25/19 09 Active confirmed [id number] 11- Vital Signs Height-cm 162.56 cm 11/22/2024 Weight-kg 77.11 kg 11/22/2024 Height 64 in 11/22/2024 Weight 170 lbs 11/22/2024 BMI 29.18 kg/m2 11/22/2024 Encounters Encounter Location Date Provider Diagnosis [facility] [address] [address] 04/08/2024 Lauren Hsusymirian-Pric e [facility] [place] [address] [place] [place] [address] 04/11/2024 Lauren Patel-Pric e [facility] [place] [address] [place] [place] [address] 04/12/2024 Lauren Patel-Pric e [facility] [place] [address] [place] [place] [address] 04/13/2024 Chaitanya Alejo [facility] [address] [place] [address] 05/06/2024 Lauren Patel-Pric e Subacromial impingement of right shoulder M75.41 [facility] [place] [address] [place] [place] [address] 07/04/2024 Lauren Hsusymirian-Pric e Spondylosis without myelopathy or radiculopathy, cervical region M47.812 [facility] [address] [place] [address] 07/21/2024 Lauren Patel-Pric e [facility] [place] [address] [place] [place] [address] 10/20/2024 Lauren Patel-Pric e Spondylosis without myelopathy or radiculopathy, cervical region M47.812 [facility] [place] [address] [place] [place] [address] 10/24/2024 Lauren Hsusymirian-Pric e Myalgia of auxiliary muscles, head and neck M79.12 [facility] [address] [place] [address] 11/01/2024 Lauren Hsusymirian-Pric e [facility] [address] [place] [address] 11/17/2024 Lauren Hsusyutova-Pric e [facility] [place] [address] [place] [address] 11/22/2024 Lauren Patel-Pric e Chronic pain syndrome G89.4 ; Spondylosis without myelopathy or radiculopathy, cervical region M47.812 ; Myalgia of auxiliary muscles, head and neck M79.12 ; Sacroiliac inflammation M46.1 ; Primary osteoarthritis, right shoulder M19.011 ; AC joint arthropathy M19.019 ; Subacromial impingement of right shoulder M75.41 and jail (current) use of opiate analgesic Z79.891 [facility] [address] [address] 05/03/2024 Lauren Hsusyutova-Pric e Chronic pain syndrome G89.4 ; Spondylosis without myelopathy or radiculopathy, cervical region M47.812 ; Myalgia of auxiliary muscles, head and neck M79.12 ; Sacroiliac inflammation M46.1 ; Primary osteoarthritis, right shoulder M19.011 ; AC joint arthropathy M19.019 ; Subacromial impingement of right shoulder M75.41 and jail (current) use of opiate analgesic Z79.891 [facility] [address] [address] 07/19/2024 Lauren Hsusysoniyaova-Pric e Chronic pain syndrome G89.4 ; Spondylosis without myelopathy or radiculopathy, cervical region M47.812 ; Myalgia of auxiliary muscles, head and neck M79.12 ; Sacroiliac inflammation M46.1 ; Primary osteoarthritis, right shoulder M19.011 ; AC joint arthropathy M19.019 ; Subacromial impingement of right shoulder M75.41 and 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 Z79.891 [facility] [place] [address] [place] [address] 08/23/2024 Lauren Lysysoniyaova-Pric e Chronic pain syndrome G89.4 ; Spondylosis without myelopathy or radiculopathy, cervical region M47.812 ; Myalgia of auxiliary muscles, head and neck M79.12 ; Sacroiliac inflammation M46.1 ; Primary osteoarthritis, right shoulder M19.011 ; AC joint arthropathy M19.019 ; Subacromial impingement of right shoulder M75.41 and 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 Z79.891 [facility] [address] [address] 10/25/20[facility] G89.4 ; Spondylosis without myelopathy or radiculopathy, cervical region M47.812 ; Myalgia of auxiliary muscles, head and neck M79.12 ; Sacroiliac inflammation M46.1 ; Primary osteoarthritis, right shoulder M19.011 ; AC joint arthropathy M19.019 ; Subacromial impingement of right shoulder M75.41 and 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 Z79.891 [facility] [address] [address] 04/05/2024 [facility] Chronic pain syndrome G89.4 ; Spondylosis without myelopathy or radiculopathy, cervical region M47.812 ; Myalgia of auxiliary muscles, head and neck M79.12 ; Primary osteoarthritis, right shoulder M19.011 ; Subacromial impingement of right shoulder M75.41 and 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 Covarrubias is a pleasant patient with chronic neck and shoulder pain. She has been holding off on an AC joint injection with ultrasound guidance because she had insurance changes, and it was gutierres pay at that time. She now has insurance and wants to proceed with the right AC joint injection. This was ordered already in August and just needs to be scheduled. She's doing well on her medication regimen. The options for treatment were explained in detail, this included PT, medications, injections, lifestyle modifications and exercise. The patient presents to clinic for medication evaluation and management. The patient is stable on their current medication regimen and endorses adequate analgesia, increased ADLs, denies abuse and side effects. A bowel regimen was discussed with the patient. Last UDS confirmation on 07/19/24 was positive for Oxycodone. She reports that she was in the hospital briefly a few days prior to that appointment and would receive pain medication at the hospital. She's unsure of what she got. We will obtain a UDS confirmation today. PDMP reviewed with no untoward events. 11/22/2024 Chronic pain syndrome (ICD-10 - G89.4) Ms. Covarrubias is a pleasant patient with chronic neck [...] today. PDMP reviewed with no untoward events. 07/19/2024 Chronic pain syndrome (ICD-10 - G89.4) Ms. Covarrubias is a pleasant patient with chronic neck and shoulder pain. We will proceed with a right AC joint injection with ultrasound guidance, and she's still pending this. She'd like to stop the Methocarbamol at this time as it's giving her side effects. The options for treatment were explained in detail, this included PT, medications, injections, lifestyle modifications and exercise. The patient presents to clinic for medication evaluation and management. The patient is stable on their current medication regimen and endorses adequate analgesia, increased ADLs, denies abuse and side effects. The GEODETIC ADVISOR was reviewed with no untoward events noted. UDS reviewed and is as expected. A bowel regimen was discussed with the patient. 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 We will start off with conservative measures with PT. Additionally, in order for her to have an opportunity to perform her ADLs, I will prescribe her her previous Hydrocodone. I will give her 1 weeks worth, and she will call in 5 days time to report how she's doing. 05/03/2024 Chronic pain syndrome (ICD-10 - G89.4) Very pleasant patient with history of chronic neck pain and shoulder pain. The options for treatment were explained in detail, this included PT, medications, injections, lifestyle modifications and exercise. The patient presents to clinic for medication evaluation and management. The patient is stable on their current medication regimen and endorses adequate analgesia, increased ADLs, denies abuse and side effects. The GEODETIC ADVISOR was reviewed with no untoward events noted. UDS reviewed and is as expected. A bowel regimen was discussed with the patient. 08/23/2024 Chronic pain syndrome (ICD-10 - G89.4) Ms. Covarrubias is a pleasant patient with chronic neck and shoulder pain. She's pending a right AC joint injection with ultrasound guidance. She wants to get this taken care of whenever she has her insurance as she's gutierres pay currently. The options for treatment were explained in detail, this included PT, medications, injections, lifestyle modifications and exercise. The patient presents to clinic for medication evaluation and management. The patient is stable on their current medication regimen and endorses adequate analgesia, increased ADLs, denies abuse and side effects. The GEODETIC ADVISOR was reviewed with no untoward events noted. UDS reviewed and is as expected. A bowel regimen was discussed with the patient. Follow up in 2 months. 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011) 07/19/2024 Myalgia of auxiliary muscles, head and neck (ICD-10 - M79.12) 08/23/2024 Myalgia of auxiliary muscles, head and neck (ICD-10 - M79.12) 08/23/2024 Sacroiliac inflammation (ICD-10 - M46.1) 07/19/2024 Sacroiliac inflammation (ICD-10 - M46.1) 04/05/2024 Subacromial impingement of right shoulder (ICD-10 - M75.41) Patient has history and physical exam of subacromial impingement versus primary osteoarthritis. We will obtain records from her previous pain physician in [place] to see what procedures she's had done in the past. It sounds like a right glenohumeral joint injection. Additionally, I will obtain a right shoulder X-ray to evaluate this further. I suspect in the future, she would benefit from a right subacromial ultrasound guided steroid injection. 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 I discussed with the patient pursuing AC joint injections with ultrasound guidance. Risks and expectations of the procedure were discussed with the patient and they agree to proceed. Ultrasound is needed for needle localization into joint and to decrease the risk of intravascular injection. The options for treatment were explained in detail, this included PT, medications, injections, lifestyle modifications and exercise. 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 I discussed with the patient pursuing AC joint injections with ultrasound guidance. Risks and expectations of the procedure were discussed with the patient and they agree to proceed. Ultrasound is needed for needle localization into joint and to decrease the risk of intravascular injection. The options for treatment were explained in detail, this included PT, medications, injections, lifestyle modifications and exercise. 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 I discussed with the patient pursuing an AC joint injection with ultrasound guidance. Risks and expectations of the procedure were discussed with the patient, and they agree to proceed. Ultrasound is needed for needle localization into joint and to decrease the risk of intravascular injection. The options for treatment were explained in detail, this included PT, medications, injections, lifestyle modifications and exercise. 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 10/25/2024 jail (current) use of opiate analgesic (ICD-10 - [...] our urine testing policy. 11/22/2024 Other Arabella Dasilva am scribing for Dr. Hector. Dr. Krunal Dasilva, personally performed the services described in this documentation, as scribed by Arabella Villalta, and it is both accurate and complete. 04/05/2024 Other Total time spent caring for the patient today was greater than 45 minutes. This includes time spent before the visit reviewing the chart, time spent during the visit, and time spent after the visit on documentation Arabella Dasilva am scribing for Dr. Hector. Dr. Krunal Dasilva, personally performed the services described in this documentation, as scribed by Arabella Villalta, and it is both accurate and complete. 05/03/2024 Other Arabella Dasilva am scribing for Dr. Hector. Dr. Krunal Dasilva, personally performed the services described in this documentation, as scribed by Arabella Villalta, and it is both accurate and complete. Total time spent caring for the patient today was greater than 25 minutes. This includes time spent before the visit reviewing the chart, time spent during the visit, and time spent after the visit on documentation 07/19/2024 Other Arabella Dasilva am scribing for Dr. Hector. Dr. Krunal Dasilva, personally performed the services described in this documentation, as scribed by Arabella Villalta, and it is both accurate and complete. 08/23/2024 Other Arabella Dasilva am scribing for Dr. Hector. Dr. Krunal Dasilva, personally performed the services described in this documentation, as scribed by Arabella Villalta, and it is both accurate and complete. 10/25/2024 Other Arabella Dasilva am scribing for Dr. Hector. Dr. Krunal Dasilva, personally performed the services described in this documentation, as scribed by Arabella Villalta, and it is both accurate and complete. Plan Of Treatment Pending Test Test Name Order Date Urine Confirmation Panel (instrument) - [id number] 11/22/2024 Future Test Test Name Order Date Inj. Intermediate Joint/Burs a (Arthrocentesis, Aspiration, and/or Injection) w/ ultrasound guidance - 05/07/2024 Inj. Major Joint/Bursa (Arth rocentesis, Aspiration, and/or Injection) w/ ultrasound guidance - 10/26/2024 Next Appt Details Provider Name:Lauren Burks Casandra, 01/03/2025 01:20:00 PM, [address] [facility] [place], [address], Provider Name:Lauren Dasilva Vitaliy Guajardo, 01/24/2025 01:20:00 PM, [address] [facility] [place], [address], Insurance Providers Payer Name Payer Address Payer Phone Subscriber Number Group Number Insured Name Patient Relationship to Insured Coverage Start Date Coverage End Date [employer] Re[employer] t [address] [place] [address] [id number] Stella Covarrubias Self - patient is the insured [facility] Medicare Replacemen t HMO (Self Pay) [address] [place] [id number] [place] [address] Stella Covarrubias Self - patient is the insured [place] [address] [place] [id number] [phone] [id number] Stella Covarrubias Self - patient is the insured Medical (General) History Medical History History ICD Code HTN Anxiety/Depression migraines Hep C GERD chronic back pain Marijuana abuse suicidal ideations tobacco use narcotic abuse CHF cirrhosis of the liver methamphetamine abuse CVA IBS Surgical History Surgery Date(Month/Year) Positive forabdiel 2007; ands mall hole in heart;; Positive forback surg 2007; andneck surg Dr larose 2008;; Positive for stress test [address] scan lung 2008 ,; back surgery 2008 neck surgery 2009 cholecystectomy arm surgery Hospitalization History Reason Date(Month/Year) See surgical hx
--- OUTSIDE RECORDS SUMMARY | 2024-11-29 13:22 | XMS_ITS | Encounter Summary ---
Author Organization [facility] Address [address] [place] [address] Care Team Providers Care Power Plant Superintendent Name Role Phone Non-Staff, Physician Primary Care Provider Unava ilable Encounter Details Date Type Department Care Team (Late st Contact Info) Description 09/01/2003 Emergency [facility] Emergency Department [address] 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
--- OUTSIDE RECORDS SUMMARY | 2024-11-29 13:22 | XMS_ITS | Encounter Summary ---
Author Organization [facility] Address [address] [place] [address] Care Team Providers Care Toll Settlement Clerk Name Role Phone Non-Staff, Physician Primary Care Provider Unava ilable Encounter Details Date Type Department Care Team (Late st Contact Info) Description 07/08/2002 Inpatient Historical HIS IN BED Kurt Hutchison MD [facility] [place] [address] REHABILITATION PROC NEC (Primary Dx) Social History Tobacco Use Types Packs/Day Years Used Date Smoking Tobacco: Never Assessed Comments Unknown Sex and Gender Information Value Date Recorded Sex Assigned at Not on file 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
--- OUTSIDE RECORDS SUMMARY | 2024-11-29 13:22 | XMS_ITS | Encounter Summary ---
Author Organization [facility] Address [address] [place] [address] Care Team Providers Care Brine Tank Separator Operator Name Role Phone Non-Staff, Physician Primary Care Provider Unava ilable Encounter Details Date Type Department Care Team (Latest Contact Info) Description 05/22/2005 Outpatient Historical [facility] [address] 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
--- OUTSIDE RECORDS SUMMARY | 2024-11-29 13:22 | XMS_ITS | Encounter Summary ---
Author Organization [facility] Address 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 Unable to reach patient. Voicemail left for patient to call back if needed..' Manju Magaña, JACOB [facility] 365 documented in this encounter Plan of Treatment Not on file documented as of this encounter Visit Diagnoses Not on filedocumented in this encounter Care Teams Warehouse Distribution Specialist Relationship Specialty Start Date End Date Conrad Amaya MD [address] [phone] PCP - General Family Practice 02/10/23 documented as of this encounter
[2024-11-29 13:23] VITALS: BP 118/74; PULSE 76; RESP 18; TEMP 36.7; O2SAT 99; BMI 28.3
--- OUTSIDE RECORDS SUMMARY | 2024-11-29 13:23 | XMS_ITS | Encounter Summary ---
Author Organization [facility] Address [address] [place] [address] Care Team Providers Care Insole Taper Name Role Phone Conrad Amaya MD Primary Care Provider [phone] Encounter Details Date Type Department Care Team (Late st Contact Info) Description 11/16/2024 Orders Only [facility] [address] [place] [address] Provider, Abstract NO ADDRESS ON FILE Social [...] on file Legal Sex Female 1:39 PM REGIONAL TRANSFER LIAISON Gender Identity Not on file Sexual Orientation Not on file documented as of this encounter Plan of Treatment Not on file documented as of this encounter Procedures Procedure Name Priority Date/Time Associated Diagnosis Comments COMPREHENSIVE METABOLIC PANEL Routine 11/14/2024 10:06 AM CDT documented in this encounter Results * COMPREHENSIVE METABOLIC PANEL (11/14/2024 10:06 AM CDT) Blood us Abstract Provider CHEMISTRY ORDERABLES Final Res ult documented in this encounter Visit Diagnoses Not on filedocumented in this encounter Additional Health Concerns Infection Onset Date Last Indicated Resolved Time R/O COVID-19 11/21/2024 11/21/2024 11/21/2024 2:19 PM CDT documented as of this encounter Care Teams Insole Taper Relationship Specialty Start Date End Date Conrad Amaya MD [address] [phone] PCP - General Family Practice 02/10/23 documented as of this encounter
--- OUTSIDE RECORDS SUMMARY | 2024-11-29 13:23 | XMS_ITS | Encounter Summary ---
Author Organization [facility] Address 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
[2024-11-29 14:39] LABS: Hematocrit 30.4 % (36-47); Hemoglobin 8.80 g/dL (11.27-16.99); Mean Corpuscular HGB Conc 28.9 g/dL (30-55); Mean Corpuscular Hemoglobin 21.7 pg (27-33); Mean Corpuscular Volume 74.9 fl (85-98); Nucleated Red Blood Cells % 0 %; Platelet Count 165 10^3/cmm (157-399); Red Blood Count 4.06 10^6/uL (3.85-5.65); White Blood Count 3.82 10^3/uL (3.29-11.43)
[2024-11-29 14:53] LABS: Slide Review Slide Review Perform
[2024-11-29 15:05] LABS: Alanine Aminotransferase 10 U/L (0-33); Albumin Level 3.9 g/dL (3.5-5.2); Alkaline Phosphatase 71 U/L (35-105); Anion Gap 16.2 (5-19); Aspartate Amino Transferase 19 U/L (0-32); Blood Urea Nitrogen 9 mg/dL (8-23); Calcium 8.6 mg/dL (8.5-10.5); Carbon Dioxide 23 mmol/L (22-29); Chloride 104 mmol/L (98-107); Creatinine Clr Calc Pharmacy 69.4578; Globulin 3.2 g/dL (1.3-4.6); Glucose 89 mg/dL (65-115); Osmolality Calculated 286 mOsm/kg (285-295); Potassium 4.2 mmol/L (3.5-5.1); Sodium 139 mmol/L (136-145); Thyroid Stimulating Hormone 1.17 uIU/mL (0.27-4.20); Total Protein 7.1 g/dL (6.6-8.7)
--- NOTE | 2024-11-29 15:06 | ED_ITS ---
HPI - Weakness 2 General: Chief complaint: Weakness Stated complaint: wekaness, fatigue, pt states low hemoglobin Time Seen by Provider: 11/29/24 13:41 History of Present Illness: 64-year-old female presents emergency ro om complaining of weakness fatigue. She has anemia had a workup recently was started on iron. She is concerned that her hemoglobin is dropped tomorrow which is why she is so tired. She is complaining of a moderately productive cough of clear sputum. She has not had any fever sweats or chills. She has been short of breath particularly with activity no chest pain. Associated symptoms: Denies chest pain, chills, dysuria or fever(s) Related Data Home Medications ?Medication ?Instructions ?Recorded ?Confirmed amlodipine 10 mg tablet 10 mg PO QPM 03/05/23 ondansetron HCl 8 mg tablet 8 mg PO Q8H PRN Nausea And Vomiting 08/24/24 11/14/24 escitalopram oxalate 10 mg tablet 10 mg PO QPM 5 11/14/24 hydrocodone 7.5 mg-acetaminophen 1 tab PO Q6H PRN Pain 11/14/24 11/14/24 325 mg tablet Previous Rx's ?Medication ?Instructions ?Recorded pantoprazole 40 mg tablet,delayed 40 mg PO BID 30 days #60 tabs 10/24/24 release sucralfate 100 mg/mL oral 10 ml PO BID 30 days #600 mL 10/24/24 suspension albuterol sulfate 90 mcg/actuation 2 inh inhalation Q4 H PRN shortness 11/29/24 aerosol inhaler of breath or wheezing #18 gr ams budesonide-formoterol HFA 80 2 inh inhalation BID #10. 2 grams 11/29/24 mcg-4.5 mcg/actuation aerosol inhaler (Symbicort) Allergies Allergy/AdvReac Type Severity Reaction Status Date / Time prochlorperazine (From Allergy Intermediate ADR-Irritab Verified 11/14/24 14:12 Compazine) le Review of Systems 2 Const: Denies: fever(s) or chills Card: Denies: chest pain Resp: Denies: dyspnea GI: Denies: abdominal pain : Denies: dysuria, urinary frequency or urinary urgency Musc: Denies: neck pain or back pain Skin/Breast: Denies: rash PFSH ED 2 PFSH: Medical History Renal mass Basal cell carcinoma (BCC) Chronic right shoulder pain Chronic neck pain Constipation Diverticulosis of colon Generalized anxiety disorder Cirrhosis of liver History of past hepatitis C that was treated, 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 Cervical radiculopathy Herniation of left side of L4-L5 intervertebral disc HTN (hypertension) Depression Degenerative disk disease 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, 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 Surgical History History of hysterectomy S/P TIPS (transjugular intrahepatic portosystemic shunt) History of neck surgery Family History Mother Heart problem Brother Heart problem Denies family history of Pancreatitis Social History Smoking and tobacco/nicotine status: current every day tobacco/nicotine user cigarettes [ Other cigarette details: 4-5 cigarettes per day] Second hand smoke exposure: Yes Alcohol intake: never Substance/Drug Use: never Physical Exam 2 Const: GENERAL APPEARANCE: cooperative ORIENTATION/CONSCIOUSNESS: Yes awake, Yes oriented to person, Yes oriented to place and Yes oriented to time HENMT: COMMON NORMALS: normocephalic, atraumatic and hearing grossly normal bilaterally HEAD & SCALP: normocephalic and atraumatic Resp: COMMON NORMALS: normal respiratory effort, No retractions, No use of accessory muscles and clear to auscultation bilaterally AUSCULTATION: clear to auscultation bilaterally Cardio: COMMON NORMALS: regular rate, regular rhythm and No murmurs present (Cardio) RATE: regular rate RHYTHM: regular rhythm GI: COMMON NORMALS: Soft to palpation and No hepatosplenomegaly present A USCULTATION: Yes normoactive bowel sounds PALPATION: Yes Soft to palpation, No Tenderness to palpation present (GI), No Guarding due to palpation present (GI) and Yes No hepatosplenomegaly present Extremity: COMMON NORMALS: normal to inspection, capillary refill normal, no clubbing, cyanosis or edema, no calf tenderness and no pedal edema Neuro: SENSORIUM/ORIENTATION: Yes oriented to person, Yes oriented to place and Yes oriented to time Skin: COMMON NORMALS: no rashes or lesions noted GENERAL SKIN EXAM: no rashes or lesions noted Course 2 Vital Signs: Vital signs: Vital Signs Temperature 98.1 F 11/29/24 13:23 Pulse Rate 78 11/29/24 17:58 Respiratory Rate 18 11/29/24 13:23 Blood Pressure 122/86 11/29/24 17:58 Pulse Oximetry 99 11/29/24 17:58 Oxygen Delivery Me thod Room Air 11/29/24 13:23 MDM - Weakness Medical Decision Making Hemoglobin is actually improved some. She has no leukocytosis chemistry is normal chest x-ray unremarkable. She does still smoking Her symptoms of exacerbation of COPD will start on Symbicort and albuterol to use as needed have her follow-up with her primary care doctor. No acute findings or emergent condition at this time Lab Data 11/29/24 14:26 11/29/24 14:26 Radiology Impressions Chest X-Ray 11/29/24 13:14 IMPRESSION: Slightly more pronounced right basilar opacity likely representing atelectasis although superimposed infection is not excluded. Laboratory Results WBC 3.82 10^3/uL (3.29-11.43) 11/29/24 14: RBC 4.06 10^6/uL (3.85-5.65) 11/29/24 14:26 Hgb 8.80 g/dL (11.27-16.99) L 11/29/24 14:26 Hct 30.4 % (36-47) L 11/29/24 14: MCV 74.9 fl (85-98) L 11/29/24 14:26 MCH 21.7 pg (27-33) L 11/29/24 14:26 MCHC 28.9 g/dL (30-55) L 11/29/24 14:26 RDW 19.6 % (12.1-15.1) H 11/29/24 14:26 Plt Count 165 10^3/cmm (157-399) 11/29/24 14:26 MPV 11.8 fL (7.4-10.4) H 11/29/24 14:26 Neut % (Auto) 57.9 % 11/29/24 14:26 Lymph % (Auto) 27.2 % 11/29/24 14:26 [place] % (Auto) 10.2 % 11/29/24 14:26 Eos % (Auto) 3.4 % 11/29/24 14:26 Baso % (Auto) 1.0 % 11/29/24 14:26 Neut # (Auto) 2.21 10^3/uL (1.8-7.7) 11/29/24 14:26 Lymph # (Auto) 1.0 10^3/uL (0.8-4.8) 11/29/24 14:26 Montgomery # (Auto) 0.4 10^3/uL (0.2-0.9) 11/29/24 14: Eos # (Auto) 0.1 10^3/uL (0.0-0.8) 11/29/24 14: Baso # (Auto) 0.0 10^3/uL (0.0-0.1) 11/29/24 14: Nucleated RBC % (auto) 0 % 11/29/24 14: Nucleated RBCs # 0.0 /100WBC 11/29/24 14:26 Sodium 139 mmol/L (136-145) 11/29/24 14: Potassium 4.2 mmol/L (3.5-5.1) 11/29/24 14: Chloride 104 mmol/L (98-107) 11/29/24 14: Carbon Dioxide 23 mmol/L (22-29) 11/29/24 14: Anion Gap 16.2 (5-19) 11/29/24 14: BUN 9 mg/dL (8-23) 11/29/24 14:26 Creatinine 0.6 mg/dL (0.5-0.9) 11/29/24 14:26 GFR Calculation 100.3 mL/min (90-130) 11/29/24 14: Glucose 89 mg/dL (65-115) 11/29/24 14: Calculated Osmolality 286 mOsm/kg (285-295) 11/29/24 14:26 Calcium 8.6 mg/dL (8.5-10.5) 11/29/24 14: Total Bilirubin 0.5 mg/dL (0.15-1.2) 11/29/24 14:26 AST 19 U/L (0-32) 11/29/24 14: ALT 10 U/L (0-33) 11/29/24 14:26 Alkaline Phosphatase 71 U/L (35-105) 11/29/24 14:26 Troponin T Baseline 7 ng/L (0-10) 11/29/24 14:26 Troponin T 120 Minute 6.15 ng/L (0-10) 11/29/24 16:59 Delta Troponin T -0.85 ABS# (0-10) L 11/29/24 16:59 C-Reactive Protein 3.0 mg/L (0.0-4.9) 11/29/24 14: NT-Pro-B Natriuret Pep 77 pg/mL (0-125) 11/29/24 14: Total Protein 7.1 g/dL (6.6-8.7) 11/29/24 14: Albumin 3.9 g/dL (3.5-5.2) 11/29/24 14: Globulin 3.2 g/dL (1.3-4.6) 11/29/24 14: TSH 1.17 uIU/mL (0.27-4.20) 11/29/24 14:26 Urine Color Dark yellow (Yellow) A 11/29/24 15: Urine Appearance Clear (CLEAR) 11/29/24 15: Urine pH 5.5 (5-7) 11/29/24 15:09 Ur Specific Mchenry 1.029 (1.005-1.030) 11/29/24 15:09 Urine Protein Trace (Negative) A 11/29/24 15:09 Urine Glucose (UA) Negative (Normal) 11/29/24 15:09 Urine Ketones Trace (Negative) 11/29/24 15:09 Urine Blood Negative (Negative) 11/29/24 15:09 Urine Nitrate Negative (Negative) 11/29/24 15: Urine Bilirubin Negative (Negative) 11/29/24 15: Urine Urobilinogen 1.0 mg/dL (Negative) 11/29/24 15:09 Ur Leukocyte Esterase Trace (Negative) A 11/29/24 15:09 Urine RBC 3-5 /hpf (0-2) 11/29/24 15:09 Urine WBC 0-5 /hpf (0-5) 11/29/24 15:09 Ur Squamous Epith Cells 6-10 /hpf (0-5) 11/29/24 15:09 Amorphous Sediment Not Reportable 11/29/24 15:09 Urine Bacteria None seen /hpf (NONE) 11/29/24 15:09 Hyaline Casts 2.46 /lpf 11/29/24 15:09 Influenza A (PCR) Negative (Negative) 11/29/24 15:14 Influenza Type B (PCR) Negative (Negative) 11/29/24 15:14 RSV (PCR) Negative (Negative) 11/29/24 15:14 SARS-CoV-2 (PCR) Negative (Negative) 11/29/24 15:14 All radiology interpretation(s) finalized by discharge Discharge Plan Discharge Patient Disposition: Home Clinical Impression: Weakness, Anemia, COPD (chronic obstructive pulmonary disease) Condition: Stable Prescriptions: New budesonide-formoterol [Symbicort] 80-4.5 mcg/actuation HFA aerosol inhaler 2 inh inhalation BID Qty: 10.2 0RF albuterol sulfate 90 mcg/actuation HFA aerosol inhaler 2 inh INHALATION Q4H PRN (Reason: shortness of breath or wheezing) Qty: 18 0RF No Action sucralfate 100 mg/mL suspension 10 ml PO BID 30 Days Qty: 600 5RF pantoprazole 40 mg tablet,delayed release (DR/EC) 40 mg PO BID 30 Days Qty: 60 5RF amlodipine 10 mg tablet 10 mg PO QPM ondansetron HCl 8 mg tablet 8 mg PO Q8H PRN (Reason: Nausea And Vomiting) hydrocodone-acetaminophen 7.5-325 mg tablet 1 tab PO Q6H PRN (Reason: Pain) escitalopram oxalate 10 mg tablet 10 mg PO QPM Discharge Orders: Discharge ED (Routine); Ordered 11/29/24 Ordered By: Sher Trejo Referrals: Conrad Amaya [Primary Care Provider, Family Practice] Discharge Diet: Usual diet Discharge Activity: Increase activity as tolerated Patient Instructions: Opioid Safety, Pain Management, Patient Portal & Alejandro Instructions Activity Restrictions/Additional Instructions: Thank you for choosing [facility] for your healthcare needs today. It is very important that you follow up as instructed or that you return to the Emergency Department should you have concerns or if your condition changes or worsens in any way. You were seen in the emergency room with complaints of feeling weak. You do have chronic anemia which she was advised as your primary care doctor was working up. Your hemoglobin is actually increased from the last time it was checked here. Chest x-ray and EKG were normal cardiac enzymes were normal. Your other chemistry tests were also normal. Do recommend that you follow-up with your primary care doctor within the next week. Given your history of smoking and complaints of productive cough we will start you on a inhaled steroid medicine and albuterol to use as needed. Review with your doctor if these have been helpful when you do your follow-up. Print Language: Polish Coding Level of Care Code ED Outreach Librarian for Nadia Poole
[2024-11-29 15:25] LABS: Glucose Urine UA Negative (Normal); Nitrate Urine Negative (Negative); Specific Gravity, Urine 1.029 (1.005-1.030)
[2024-11-29] MEDS: lidocaine 2% viscous 15 ML, aluminum-mag hydrox-simethicon 30 ML, sucralfate oral liq 1 GM PO (15:25)
[2024-11-29] MEDS: ondansetron 2 mg/ML SDV 2 mL 4 MG IVP (15:25)
[2024-11-29 15:30] LABS: Add Urine Microscopic? YES
--- NOTE | 2024-11-29 15:31 | ECG_ITS ---
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 Measurements Intervals [place] Rate: 68 P: 64 WA: 142 QRS: 66 QRSD: 70 T: 66 QT: 422 QTc: 451 Interpretive Statements SINUS RHYTHM Compared to ECG 11/14/2024 14:07:44 No significant changes Electronically Signed On 11-29-2024 18:34:07 CDT by Valentina Storm M.D. [email or web address]
[2024-11-29 15:51] LABS: Troponin(5th) Baseline 7 ng/L (0-10)
[2024-11-29 15:54] LABS: Respiratory Syncytial Virus Ce NEGATIVE (Negative); SARS-CoV-2 PCR NEGATIVE (Negative)
[2024-11-29 16:00] LABS: NT Pro B Type Natriuretic Pept 77 pg/mL (0-125)
--- NOTE | 2024-11-29 17:11 | ECG_ITS ---
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 Measurements Intervals [place] Rate: 62 P: 61 [place]: 141 QRS: 59 QRSD: 83 T: 66 QT: 435 QTc: 445 Interpretive Statements SINUS RHYTHM Compared to ECG 11/29/2024 15:31:47 No significant changes Electronically Signed On 11-29-2024 18:35:03 CDT by Valentina Storm M.D. [email or web address]
[2024-11-29 17:13] VITALS: BP 122/86; PULSE 91; O2SAT 95
[2024-11-29 17:45] LABS: Troponin 5 2HR 6.15 ng/L (0-10)
[2024-11-29 17:46] LABS: Troponin 5 2HR Delta -0.85 ABS# (0-10)
[2024-11-29 17:58] VITALS: BP 122/86; PULSE 78; O2SAT 99
== END 2024-11-29 18:00 | disposition home or self-care (01) ==
PROVIDERS: Emergency Medicine; Emergency Provider Family Medicine; PCP Family Medicine
DX: D64.9 Anemia, unspecified (principal); R53.1 Weakness; J44.9 Chronic obstructive pulmonary disease, unspecified; I10 Essential (primary) hypertension; F17.210 Nicotine dependence, cigarettes, uncomplicated; Z11.52 Encounter for screening for COVID-19; Z79.899 Other long term (current) drug therapy; Z88.8 Allergy status to other drugs, medicaments and biological substances
CPT/HCPCS: 36415; 71045; 80053; 81001; 83880; 84443; 84484; 85025; 86140; 87637; 93005; 96374; 99285; J2405; J9999